=== PATIENT | female | born 1990 | race Caucasian/White ===

== ENCOUNTER 2025-02-12 16:56 | Outpatient (OUT) | payer MEDICAID, SELFPAY ==
[2025-02-17 16:09] LABS: Vitamin B6, Plasma 12.4 ug/L (3.4-65.2)
== END 2025-02-12 16:57 | disposition home or self-care (01) ==
PROVIDERS: PCP Nurse Practitioner Family; Visit Provider Obstetrics & Gynecology
DX: Z34.92 Encounter for supervision of normal pregnancy, unspecified, second trimester (principal); Z3A.15 15 weeks gestation of pregnancy
CPT/HCPCS: 36415; 82105; 84207

== ENCOUNTER 2025-02-13 10:47 | Outpatient (OUT) | payer MEDICAID, SELFPAY | END 2025-02-13 10:48 | disposition home or self-care (01) | LOC: LAB 10:47 | PROVIDERS: PCP Nurse Practitioner Family; Visit Provider Obstetrics & Gynecology | DX: Z14.8 Genetic carrier of other disease (principal) | CPT/HCPCS: 36415; 84378 ==

== ENCOUNTER 2025-03-04 12:42 | Outpatient (OUT) | payer MEDICAID, SELFPAY ==
--- OUTSIDE RECORDS SUMMARY | 2025-02-19 13:45 | XMS_ITS | Encounter Summary ---
Author Organization [email or web address] [facility] tem Address [id number] [address] [place] [address] Care Team Providers Care Maternity Nurse Name Role Phone RizviAnjelica kingnan RIOS-JEYSON Primary Care Provider Reason for Visit * ReasonCommentsGenetic Evaluation * Consultation (Routine) - Pending ReviewSpecialtyDiagnoses / ProceduresReferred By ContactReferred To ContactMaternal and Medicine Diagnoses Abnormal genetic test during Rene Hayden, DO [address] [place] [address] [place] [address] Phone: tel: fax: [facility] at [place] [address] [place] [address] Phone: tel: fax: Referral IDStatusReasonStart DateExpiration DateVisits RequestedVisits [id number] Review Specialty Services Required / Encounter Details DateTypeDepartmentCare Team (Latest Contact Info)Lxhezwpyigh84/15/2025 1:45 PM EDTSupport Visit [facility] [place] [address] [place] [address] Social History Tobacco UseTypesPacks/DayYears UsedDateSmoking Tobacco: FormerCigarettes0.57.9 Started: 04/05/2017Smokeless Tobacco: NeverAlcohol UseStandard Drinks/Week CommentsNot Currently3 (1 standard drink = 0.6 oz pure alcohol)occasionalAHC UtilitiesAnswerDate RecordedIn the past 12 months has the electric, gas, oil, or water company threatened to shut off services in your home?No03/28/2024Overall Financial Resource Strain (CARDIA)AnswerDate RecordedHow hard is it for you to pay for the very basics like food, housing, medical care, and heating?Not hard at all05/07/2024HQ-2AnswerDate RecordedTotal Jiyku192PRAPARE - TransportationAnswerDate RecordedIn the past 12 months, has lack of transportation kept you from medical appointments or from getting medications?No 03/28/2024In the past 12 months, has lack of transportation kept you from meetings, work, or from getting things needed for daily living?No03/28/2024 [place] Depression ScaleAnswerDate RecordedEdinburgh Depression Scale Eukdr181The thought of harming myself has occurred to me.Never05/07/2024Housing InstabilityAnswerDate RecordedAre you worried or concerned that in the next two months you may not have stable housing that you own, rent or stay in as a part of a household?No03/28/2024hildcareAnswerDate RecordedDo problems getting early childhood education worker make it difficult for you to work or study?No05/07/2024EmploymentAnswerDate NqhmxagcCymdkebblyZirpqha36/10/2019Hunger ScreeningAnswerDate RecordedWithin the past 12 months we worried whether our food would run out before we got money to buy more.Never True10/29/2024Within the past 12 months the food we bought just didn't last and we didn't have money to get more.Never True10/29/2024Purpose - LifeAnswerDate RecordedPurpose and direction in qnfnVofxkgd32/10/2021Estimated Date of DeliveryCommentsYes 6Based on UltrasoundSex and Gender InformationValueDate RecordedSex Assigned at AbaolUnhvvt31/02/2022 7:15 PM EDTLegal VuiTgyizs03/04/2015 2:44 PM EDTGender HslojeohToupup78/02/2022 7:15 PM EDTSexual OrientationStraight 12/07/2021 7:15 PM EDTdocumented as of this encounter Plan of Treatment DateTypeDepartmentCare Team (Latest Contact Info)Prwcnylxwva51/04/2025 9:00 AM ESTAppointment [facility] [address] [place] [address] 03/11/2025 11:00 AM ESTOffice Visit [facility]aternal[facility] at [facility] [address] [place] [address] Tejinder Mccarthy MD [address] [facility] [address] [place] [address] 11/04/2025 4:00 PM EDTOffice Visit [facility] [address] [place] [address] Rebecca Rizvi APRN-JEYSON [address] [place] [phone] documented as of this encounter Visit Diagnoses Not on filedocumented in this encounter Additional Health Concerns AssessmentNoted TimePHQ-9 Depression Total Score: 3:04 PM EDTA Body Mass Index follow-up plan has been documented for the cnhevke0509/11/2018 4:32 PM EDTdocumented as of this encounter Care Teams Team MemberRelationshipSpecialtyStart DateEnd Date Rebecca Rizvi APRN-NIGHT TIME BABYSITTER [address] [place] [address] PCP - GeneralNurse Practitioner08/23/22documented as of this encounter
--- OUTSIDE RECORDS SUMMARY | 2025-03-04 12:47 | XMS_ITS | Encounter Summary ---
Author Organization [facility] Address [address] [place] [address] Care Team Providers Care Chef Passenger Vessel Name Role Phone Rebecca Rizvi MD Primary Care Provider [phone] Reason for Visit * ReasonCommentsMed Change Request Encounter Details DateTypeDepartmentCare Team (Latest Contact Info)Wgbsfedtxtu30/16/2025Refill [facility] Camelia PERALTA [address] [place] [address] Janett Zheng PA [address] [place], [place] [address] Nonintractable headache, unspecified chronicity pattern, unspecified headache type Social History Tobacco UseTypesPacks/DayYears UsedDateSmoking Tobacco: Never Assessed Estimated Date of YvlwidevWvvqosryJgt73/11/2026Based on UltrasoundSex and Gender InformationValueDate RecordedSex Assigned at BirthNot on fileLegal SexFemale 07/20/2022 6:43 PM EDTGender IdentityNot on fileSexual OrientationNot on file documented as of this encounter Plan of Treatment DateTypeDepartmentCare Team (Latest Contact Info)Jhdjlxlxxxf73/06/2025 9:50 AM ESTRoutine NOMTiffany PERALTA [address] [place] [address] Rene Hayden DO [address] [place], [place] [address] documented as of this encounter Visit Diagnoses Diagnosis Nonintractable headache, unspecified chronicity pattern, unspecified headache type documented in this encounter Care Teams Team MemberRelationshipSpecialtyStart DateEnd Date Rebecca Rizvi MD [address] [place] [phone] PCP - GeneralFamily Medicine01/03/25documented as of this encounter
--- OUTSIDE RECORDS SUMMARY | 2025-03-04 12:47 | XMS_ITS | Clinical Summary ---
Author Organization [facility] Address [address] [place] [address], [address] [place] [address] Care Team Providers Care Glue Maker Bone Name Role Phone Neto Karen HILARION - CHICKEN STUFFER Primary Care Provider Unavailable Allergies No known active allergies Medications MedicationSigDispense QuantityRefillsLast FilledStart DateEnd DateStatus tiZANidine (ZANAFLEX) 4 MG tablet 08/28/2019Active NUVARING 0.12-0.015 MG/24HR vaginal ring 08/16/2019Active Active Problems Patient Care Coordination No te Formatting of this note migh t be different from the original. Dr Fredy WELCH ProblemNoted DateDiagnosed DateHepatitis 04/25/2017 Social History Tobacco UseTypesPacks/DayYears UsedDateSmoking Tobacco: FormerSmokeless Tobacco: NeverAlcohol UseStandard Drinks/WeekCommentsNo0 (1 standard drink = 0.6 oz pure alcohol)CommentsUnknownSex and Gender InformationValueDate RecordedSex Assigned at BirthNot on fileLegal BfhQeqzae99/28/2017 11:11 AM ESTGender IdentityNot on fileSexual OrientationNot on file Last Filed Vital Signs Vital SignReadingTime TakenCommentsBlood Syixkjco838/7601/ 3:41 PM EST Glqzs5191/ 3:41 PM SKAAaqynjlwprl86.4 ??C (97.6 ??F)02/19/2020 1:24 PM EDTRespiratory Rate--Oxygen Ewcxoopngs538%06/30/2017 10:28 AM ESTInhaled Oxygen Concentration--Mdvwgm64.7 kg (136 lb)06/03/2020 3:41 PM FGZVpsqvn377 cm (5' 3 ) 06/30/2017 10:28 AM ESTBody Mass Index24.0906/30/2017 10:28 AM EST Plan of Treatment Not on file Insurance Care Teams Team MemberRelationshipSpecialtyStart DateEnd Date Karen Duque APRN - CHICKEN STUFFER PCP - GeneralNurse Ecridyadpjis72/19/17
--- OUTSIDE RECORDS SUMMARY | 2025-03-04 12:47 | XMS_ITS | Encounter Summary ---
Author Organization [facility] Address [address] [facility] [place] [address] Care Team Providers Care After School Program Assistant Name Role Phone Rebecca Rizvi MD Primary Care Provider [phone] Encounter Details DateTypeDepartmentCare Team (Latest Contact Info)Umwtybycbyi06/15/2025bstract BOBBY PERALTA [address] [facility] [place] [address] Rene Hayden DO [address], [place] [address] Social History Tobacco UseTypesPacks/DayYears UsedDateSmoking Tobacco: Never Assessed Estimated Date of CwdhayenDngwxtfuGlu60/11/2026Based on UltrasoundSex and Gender InformationValueDate RecordedSex Assigned at BirthNot on fileLegal SexFemale 07/20/2022 6:43 PM EDTGender IdentityNot on fileSexual OrientationNot on file documented as of this encounter Plan of Treatment DateTypeDepartmentCare Team (Latest Contact Info)Demmhaurlxf59/06/2025 9:50 AM ESTRoutine NOMTiffany PERALTA [address] [facility] [place] [address] Rene Hayden DO [address], [facility] documented as of this encounter Visit Diagnoses Not on filedocumented in this encounter Care Teams Team MemberRelationshipSpecialtyStart DateEnd Date Rebecca Rizvi MD [address] [place] [phone] PCP - GeneralFamily Medicine01/03/25documented as of this encounter
--- OUTSIDE RECORDS SUMMARY | 2025-03-04 12:47 | XMS_ITS | Clinical Summary ---
Author Organization [employer] tem Address [id number] [address] [place] [address] Care Team Providers Care Field Adjuster Name Role Phone Rebecca Rizvi LBANCA-NITRIC ACID PLANT OPERATOR Primary Care Provider Allergies No known active allergies Medications * This document contains information received from the source organization and may not represent a complete record from that organization. MedicationSigDispense QuantityRefillsLast FilledStart DateEnd DateStatus omeprazole (PriLOSEC) 40 mg capsule Indications:Heart burnTake 1 capsule (40 mg total) by mouth in the morning. 30 capsule 6001/02/2024ctive Additional Information Patient not taking.Reported on 10/29/2024 008-wumb-jjmcpv 6-dha 27 mg iron-1 mg -205 mg capsule Indications: care in third trimesterTake 1 each by mouth in the morning. 90 capsule ctive Additional Information Patient not taking.Reported on 10/29/2024 drospirenone, contraceptive, 4 mg (28) tablet Take 4 mg by mouth in the morning. 28 tablet 1214Active Additional Information Patient not taking.Reported on 10/29/2024 docusate sodium (COLACE) 100 mg capsule Indications:Constipation, unspecified constipation typeTAKE 1 CAPSULE BY MOUTH DAILY NEEDED FOR CONSTIPATION 30 capsule 4Active Additional Information Patient not taking.Reported on 10/29/2024 omega-3 acid ethyl esters (LOVAZA) 1 gram capsule TAKE 2 CAPSULES BY MOUTH EVERY MORNING AND TAKE TWO CAPSULES BY MOUTH AT BEDTIME 120 capsule 5Active valACYclovir (VALTREX) 1000 mg tablet Indications:HSV infectionTake 1 tablet (1,000 mg total) by mouth in the morning and 1 tablet (1,000 mg total) before bedtime. 30 tablet 4055Active etonogestreL-ethinyl estradioL (NUVARING) 0.12-0.015 mg/24 hr vaginal ring Indications:Encounter for initial prescription of vaginal ring hormonal contraceptiveInsert 1 each into the vagina every 21 days. Insert vaginally and leave in place for 3 consecutive weeks, then remove for 1 week. 1 each 11055Active Bacillus coagulans (BACID WITH LACTOSPORE) 1 billion cell capsule Take 1 capsule by mouth in the morning. 90 capsule 5Active ibuprofen (MOTRIN) 800 mg tablet Take 1 tablet (800 mg total) by mouth every 6 (six) hours as needed for pain. 30 tablet 5Active magnesium oxide (MAGOX) 400 mg tablet Take 1 tablet (400 mg total) by mouth before bedtime. 90 tablet 5Active HDBK-veqeghih-dqonptvfldc xt 100-100-225 mg capsule Take 1 capsule by mouth in the morning. 90 capsule 5Active cholecalciferol, vitamin D3, (VITAMIN D3) 2,000 units tablet Indications:Vitamin D deficiencyTake 1 tablet (2,000 Units total) by mouth in the morning. 90 each 3065Active cyanocobalamin (vitamin B-12) 1000 MCG tablet Take 1 tablet (1,000 mcg total) by mouth in the morning. 90 tablet 5Active biotin (BIOTIN) 5 mg capsule Indications:Hair lossTake 1 capsule (5 mg total) by mouth in the morning. 90 capsule 5Active famotidine (PEPCID) 20 mg tablet Indications:Heart burnTAKE 1 TABLET BY MOUTH EVERY MORNING 30 tablet 605Active Active Problems ProblemNoted DateDiagnosed DateAnemia affecting in third trimester 01/05/2024 Overview (01/23/2024): 01/15: IV iron 01/22: IV iron Vitamin D qopmdigzgb33/03/2023Estimated Date of DeliveryCommentsYes 6Based on Ultrasound Resolved Problems ProblemNoted DateDiagnosed DateResolved DateNSVD (normal spontaneous vaginal delivery)/4225Ryrdcaiak42Normal labor03/26/2024 weeks gestation of fjsffvozj83bdominal pressure Irregular uterine aorrzultlqyr09History of heroin abuse Overview (03/17/2024): 03/17/2024: Patient states she has been clean since 2011. Xatgyswp73 Overview (11/14/2023): Bleeding after intercourse - 10-31-23 spec exam done. Bleeding is coming from metaplasia of cervix. Thick/closed 084076 = GC and CT negative Hx of LEEP - 2015 - full term baby after Cervical lengths 10-12-23 = 3.47 11-02-23 = 3.59 RECOMMENDATION: 1. Follow-up in 4 weeks for completion of targeted anatomy. 2. Serial growth ultrasounds every 4 weeks after 24 weeks gestation at her OB office. 3. Term spontaneous delivery at her local hospital is anticipated with C section reserve for routine obstetrical indications. 4. Since hepatitis C has been treated there is no restrictions regarding management. 5. Genetic consult placed today. 6. Patient will like to have the tested after . 7. Continue Valtrex. 8. Normal transvaginal cervical length. Patient does not meet the criteria for cervical length protocol MFM consult: Rh negative state in antepartum envqta72HSV infection Overview (10/31/2023): 09-05-23 genital lesion cultured- + HSV2 States gets oral lesions Discussed genital HSV and need for prophylaxis at 34 weeks. 10-31-23 - c/o HSV oral break out. 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 They have a ocju-fxqp-yed daughter that has a mild form (Clemens variant) of galactosemia diagnosed via screening with minimal need for treatment and management. Ese has a healthy 17-year-old daughter with a different partner. Rancho has two healthy children with a different partner. Galactosemia is a hereditary condition caused by mutations in the GALT gene resulting in trouble metabolizing a sugar called galactose. Symptoms in infancy if untreated include feeding difficulties, failure to thrive, liver damage, seizures, bleeding, and E. coli sepsis. If treated, children are still at risk for developmental delays, speech problems, and abnormal motor function. Based on the known parental carrier statuses, the risk for the current to be affected with galactosemia is 25%. We reviewed all children born in [place] are screened for galactosemia via screening (NBS) after . 1. Amniocentesis discussed and declined. 2. Continue to monitor the via ultrasound. 3. Patient diagnoses: galactosemia carriers, family history of galactosemia and muscular dystrophy History of loop electrical excision procedure (LEEP) Overview (09/05/2023): LEEP 2016 Cervical lengths to start at 16 weeks until 24 weeks. Intermittent explosive vzmggmdr17ipolar yskpqwez30/23/2023 10/01/20244557Pkwjazyz06History of drug abuse09/06/2022EczemaVitamin B 12 /02/2023 02/21/2023FH: brain eabknyop75pontaneous vaginal delivery Failed induction of labor, ddctzcesex60 Intrauterine tuktgxlmy37Echogenic focus of heart of fetus affecting antepartum care of cumyfn96 Overview (10/09/2017): First Trimester and MSAFP is WNL US was repeated and the EIF Is smaller - her first trimester screen was negative PLAN: rpt US in 4 weeks Notify Peds at History of hepatitis /// Overview (09/08/2023): treated 04/2020 with Mavyret (Dr. Daniel) 09/07/22 viral load undetectable 09/05/23 viral load undetected Rh negative, antepartum, first ukuqmrrtp31Attention deficit hyperactivity disorder (ADHD), predominantly hyperactive type03/20/2017 10/01/20244745Nappzkr42Headaches, oyboyeh79HCV antibody ljpxdbze26 Overview (07/17/2017): Avoid scalp electrode Notify peds at delivery LFT and viral load each trimester and at delivery Elevated liver azhhgok38Cannabis abuse Tobacco useHistory of opioid abuse Overview (08/14/2017): Has not used opoid since Hx of intravenous drug use in isczwxvvt67CIN II (cervical intraepithelial neoplasia II) Overview (08/14/2017): =ASC-H =HGSIL = LEEP - Dr. Bhatia - PAP=WNL Rpt PAP post Encounters DateTypeDepartmentCare HjprHlfjzbekunn69/16/2025Orders Only Maternal- Medicine at [facility] [address] [place] [address] Ref Prov, Not In System 02/19/2025 1:45 PM EDTSupport Visit Maternal- Medicine at [facility] [address] [place] [address] 02/19/20256868Tibayl29/06/2025bstract Maternal- Medicine at [facility] [address] [place] [phone] Tejinder Mccarthy MD 12/31/2024RefJames E. Van [facility] Certified Nurse Barge Master - [place] [address] [facility] [address] [place] [phone] Ivory Du APRN-DANIM Heart burn12/24/2024TeleUniversity [facility] [address] [facility] [address] [place] [address] Kacie Shannon, RMA questionfrom Last 3 Months Immunizations ImmunizationAdministration DatesNext OvbAMB3506/12/1989,02/08/1990,1989DTaP, Hzbmffwcgjm50/08/2002,10/04/1994,04/16/1991HPV Aohjxpnmengm41/14/2007Hep A, 2 Dose03/21/2007Hep B, Adolescent or Ntmynkgby93/26/2002,05/15/2001,04/04/2001HiB 02/12/1991,09/20/1990,08/05/1990Influenza, Injectable, quadrivalent (PF) 02/27/2024,05/22/2017MMR05/15/2001,02/12/1991Meningococcal JNH1H5103/21/2007OPV 10/04/1994,04/16/1991,02/08/1990,1989Polio, Dbvlpynrltu12/08/2002RSV, bivalent, protein subunit RSVpreF, diluent reconstituted, 0.5 mL, PF02/23/2024 Rho (D) Immune Gpqvsdsv59/21/2024,01/02/2024,11/14/2023,08/23/2023,09/11/2017Td, Vciovkxttka41/26/4680Kelo12/06/2024 Family History Medical HistoryRelationNameCommentsDrug abuseBrotherDrug abuseFatherHeart diseaseFatherMigrainesFatherParkinsonismMaternal GrandfatherBreast cancer Maternal Grandmotherdiagnosed 2016DepressionMotherDrug abuseMotherMigraines MotherHeart diseasePaternal GrandmotherColon cancerNeg HxOvarian cancerNeg Hx Uterine cancerNeg HxRelationNameStatusCommentsBrotherFatherAliveMaternal GrandfatherDeceasedMaternal GrandmotherAliveMotherAlivePaternal Grandfather unknownDeceasedPaternal GrandmotherDeceased Social History Tobacco UseTypesPacks/DayYears UsedDateSmoking Tobacco: FormerCigarettes0.57.9 Started: 04/05/2017Smokeless Tobacco: Never Tobacco Cessation:Counseling Given: Not Answered Alcohol UseStandard Drinks/WeekCommentsNot Currently3 (1 standard drink = 0.6 oz pure alcohol)occasionalAHC UtilitiesAnswerDate RecordedIn the past 12 months has the electric, gas, oil, or water [employer] threatened to shut off services in your home?No03/28/2024Overall Financial Resource Strain (CARDIA)AnswerDate Recorded How hard is it for you to pay for the very basics like food, housing, medical care, and heating?Not hard at all05/07/2024HQ-2AnswerDate RecordedTotal Score0 10/29/2024PRAPARE - TransportationAnswerDate RecordedIn the past 12 months, has lack of transportation kept you from medical appointments or from getting medications?No03/28/2024In the past 12 months, has lack of transportation kept you from meetings, work, or from getting things needed for daily living?No 03/28/2024Edinburgh Depression ScaleAnswerDate RecordedEdinburgh Depression Scale Sxaac049The thought of harming myself has occurred to me.Never05/07/2024Housing InstabilityAnswerDate RecordedAre you worried or concerned that in the next two months you may not have stable housing that you own, rent or stay in as a part of a household?No4Childcare AnswerDate RecordedDo problems getting children's attendant make it difficult for you to work or study?No05/07/2024EmploymentAnswerDate RecordedEmploymentUnknown 10/15/2018Hunger ScreeningAnswerDate RecordedWithin the past 12 months we worried whether our food would run out before we got money to buy more.Never True10/29/2024Within the past 12 months the food we bought just didn't last and we didn't have money to get more.Never True10/29/2024Purpose - LifeAnswerDate RecordedPurpose and direction in lzhsTlhhijh70/10/2021Estimated Date of EeujsfepJwpkwrjeNtx34/11/2026Based on UltrasoundSex and Gender InformationValue Date RecordedSex Assigned at LtydaFucfhb70/02/2022 7:15 PM EDTLegal SexFemale 12/09/2014 2:44 PM EDTGender WbrjzvaaPdpzds17/02/2022 7:15 PM EDTSexual CccsjrlfagxLjdnbsts73/02/2022 7:15 PM EDT Last Filed Vital Signs Vital SignReadingTime TakenCommentsBlood Sjxzwkro141/7410/29/2024 3:04 PM EDT Kycas119110/29/2024 3:04 PM PYLOqddjjqhmkc10.6 ??C (97.8 ??F)10/29/2024 3:04 PM EDTRespiratory Uxyo584905/28/2023 3:55 PM ESTOxygen Vteqipuros04%10/29/2024 3:04 PM EDTInhaled Oxygen Concentration--Qffure73.4 kg (148 lb 9.6 oz)10/29/2024 3:04 PM BETDvrcxp359 cm (5' 2.99 )10/29/2024 3:04 PM EDTBody Mass Index26.33 10/29/2024 3:04 PM EDT Plan of Treatment DateTypeDepartmentCare Team (Latest Contact Info)Haxbpnwysyt93/04/2025 9:00 AM ESTAppointment [facility] - [facility] Imaging [address] [place] [phone] 03/11/2025 11:00 AM ESTOffice Visit Maternal- Medicine at [facility] [address] [facility] [place] [phone] Tejinder Mccarthy MD [address] [facility]ITALDoreen, [address] [place], [place] [phone] 11/04/2025 4:00 PM EDTOffice Visit [facility] [address] [place] [phone] Rebecca Rizvi, [facility]IC [facility] [address] [place] [address], [facility] [place] [phone] Health MaintenanceDue DateLast DoneCommentsAdult BMI Follow Up Plan10/04/2007 Influenza Cjgnfft88, 05/22/2017Adult BMI Ahyyjqobt47/24/2026 10/29/2024Depression Nqkmojifd54, 05/07/2024Tobacco Screening /Pap Smear8010/01/2024, 10/01/2024, 09/05/2023, Additional history existsDTaP,Tdap and Td Vaccines (9 - Td or Tdap)01/11/2034 01/12/2024, 12/31/2001, 05/15/2001, Additional history exists Medical Devices Not on file Procedures Procedure NamePriorityDate/TimeAssociated DiagnosisCommentsFETAL FREE CELL DNA (NON-[facility] SEND OUT)Xgoilss8402/18/2025 11:39 AM EDTTYPE AND SCREENRoutine 01/28/2025 HEPATITIS B SURFACE RNJKVKAHarlwcf31/23/2025 DRUG SCREEN, GSCYMAcybljp59/23/2025 CBC (NO DIFF)Hcccwlg1301/28/2025 HIV 1&2 AB/AG SCREEN (P24 AG)Purocna4601/28/2025 RUBELLA IGG IMMUNE EAWZQXFhsqtox39/23/2025 SYPHILIS TOTAL(UNKNOWN SYPHILIS STATUS)Effedgu0401/28/2025 HIGH RISK HPV W/MJGLXogolrg34/27/2025 1:50 PM EDT Screening for cervical cancer from Last 3 Months or Most Recently Relevant to Health Maintenance Results * Free Cell DNA (Non-[facility] Send Out) (02/18/2025 11:39 AM EDT) Narrative Authorizing ProviderResult TypeResult StatusNot In System Ref Farm[employer] BLOOD ORDERABLESFinal ResultPerforming OrganizationAddressCity/State/ZIP CodePhone Number MANUALLY TRANSCRIBED RESULTS * HIV 1&2 AB/AG Screen (P24 AG) (01/28/2025)ComponentValueRef RangeTest Method Analysis TimePerformed AtPathologist SignatureHIV 1&2 AB/AGNON REACTIVE MANUALLY TRANSCRIBED RESULTSSpecimen (Source)Anatomical Location / Laterality Collection Method / VolumeCollection TimeReceived TimeBloodVenous blood / Unknown Narrative Authorizing ProviderResult TypeResult StatusNot In System Ref batteriiLAB BLOOD ORDERABLESFinal ResultPerforming OrganizationAddressCity/State/ZIP CodePhone Number MANUALLY TRANSCRIBED RESULTS * Rubella IGG immune status (01/28/2025)ComponentValueRef RangeTest Method Analysis TimePerformed AtPathologist SignatureRubella immune IgGIMMUNEMANUALLY TRANSCRIBED RESULTSSpecimen (Source)Anatomical Location / LateralityCollection Method / VolumeCollection TimeReceived TimeBloodVenous blood / Unknown Narrative Authorizing ProviderResult TypeResult StatusNot In System Ref batteriiLAB BLOOD ORDERABLESFinal ResultPerforming OrganizationAddressCity/State/ZIP CodePhone Number MANUALLY TRANSCRIBED RESULTS * Syphilis Total (Unknown Syphilis Status) (01/28/2025)ComponentValueRef Range Test MethodAnalysis TimePerformed AtPathologist SignatureSyphilisNON REACTIVE MANUALLY TRANSCRIBED RESULTSSpecimen (Source)Anatomical Location / Laterality Collection Method / VolumeCollection TimeReceived TimeBloodVenous blood / Unknown Narrative Authorizing ProviderResult TypeResult StatusNot In System Ref ProvLAB BLOOD ORDERABLESFinal ResultPerforming OrganizationAddressCity/State/ZIP CodePhone Number MANUALLY TRANSCRIBED RESULTS * Drug Screen, Urine (01/28/2025)ComponentValueRef RangeTest MethodAnalysis Time Performed AtPathologist SignatureMethadoneNEGATIVEMANUALLY TRANSCRIBED RESULTS OpiatesNEGATIVEMANUALLY TRANSCRIBED RESULTSAmphetamine/MethamphetamineNEGATIVE MANUALLY TRANSCRIBED RESULTSCocaine MetaboliteNEGATIVEMANUALLY TRANSCRIBED RESULTSPhencyclidineNEGATIVEMANUALLY TRANSCRIBED RESULTSThc Marijuana, Urine NEGATIVEMANUALLY TRANSCRIBED RESULTSOxycodoneNEGATIVEMANUALLY TRANSCRIBED RESULTSBarbituratesNEGATIVEMANUALLY TRANSCRIBED RESULTSBenzodiazepinesNEGATIVE MANUALLY TRANSCRIBED RESULTSSpecimen (Source)Anatomical Location / Laterality Collection Method / VolumeCollection TimeReceived TimeUrine Narrative Authorizing ProviderResult TypeResult StatusNot In System Ref ProvURINE ORDERABLESFinal ResultPerforming OrganizationAddressCity/State/ZIP CodePhone Number MANUALLY TRANSCRIBED RESULTS * Hepatitis B surface antigen (01/28/2025)ComponentValueRef RangeTest Method Analysis TimePerformed AtPathologist SignatureHepatitis B Surface Antigen NEGATIVEMANUALLY TRANSCRIBED RESULTSSpecimen (Source)Anatomical Location / LateralityCollection Method / VolumeCollection TimeReceived TimeBloodVenous blood / Unknown Narrative Authorizing ProviderResult TypeResult StatusNot In System Ref ProvLAB BLOOD ORDERABLESFinal ResultPerforming OrganizationAddressCity/State/ZIP CodePhone Number MANUALLY TRANSCRIBED RESULTS * CBC without diff (01/28/2025)ComponentValueRef RangeTest MethodAnalysis Time Performed AtPathologist DjonkdmkpQmwmisqqae67.7MANUALLY TRANSCRIBED RESULTS Tdgrrekmzf08.6MANUALLY TRANSCRIBED RESULTSRbc Mcv (Fl) By Automated Count93 MANUALLY TRANSCRIBED CGOXRDZFlvknczvr119QPFDHFDI TRANSCRIBED RESULTSSpecimen (Source)Anatomical Location / LateralityCollection Method / VolumeCollection TimeReceived TimeBloodVenous blood / Unknown Narrative Authorizing ProviderResult TypeResult StatusNot In System Ref ProvLAB BLOOD ORDERABLESFinal ResultPerforming OrganizationAddressCity/State/ZIP CodePhone Number MANUALLY TRANSCRIBED RESULTS * Type and screen (01/28/2025)ComponentValueRef RangeTest MethodAnalysis Time Performed AtPathologist SignatureAbo/Rh(D)O NegativeMANUALLY TRANSCRIBED RESULTSAntibody ScreenNEGATIVEMANUALLY TRANSCRIBED RESULTSSpecimen (Source) Anatomical Location / LateralityCollection Method / VolumeCollection Time Received TimeBloodVenous blood / Unknown Narrative Authorizing ProviderResult TypeResult StatusNot In System Ref ProvBLOOD BANK TEST ORDERABLESFinal ResultPerforming OrganizationAddressCity/State/ZIP Code Phone Number MANUALLY TRANSCRIBED RESULTS * High risk HPV w/krzysztof (10/01/2024 1:50 PM EDT)ComponentValueRef RangeTest MethodAnalysis TimePerformed AtPathologist SignatureHPV 16NegativeNegative 10/02/2024 2:06 PM [facility]ATORYHPV 18Negative Kevskhvu00/28/2025 2:06 PM [facility]ORYOTHER HIGH RISK VGPDbwjxszbWqulhatq78/28/2025 2:06 PM [facility] LABORATORYComment:HPV types 31, 33, 35, 39, 45, 52, 56, 58, 59, 66, and 68 DNA were undetectable.Specimen (Source)Anatomical Location / LateralityCollection Method / VolumeCollection TimeReceived TimeThinPrep cytology technique (qualifier value)Cervix uteri structure / Xbbofxg2810/01/2024 1:50 PM EDT 10/02/2024 3:04 AM EDT Narrative Authorizing ProviderResult TypeResult StatusJane Jenna Figueroamibriana UROLOGIC NURSE-CNMLAB BLOOD ORDERABLESFinal ResultPerforming OrganizationAddressCity/State/ZIP CodePhone Number [facility] [address] [place] [address], from Last 3 Months or Most Recently Relevant to Health Maintenance Insurance Advance Directives * Full Code (Latest Code Status on File) Date ActivatedDate AwdcpqyhrwbGlxvzmzy55/19/2024 10:52 PM03/28/2024 11:13 PM * Full Code Date ActivatedDate InactivatedComments12/08/2017 8:05 AM12/10/2017 9:50 AM * Full Code Date ActivatedDate InactivatedComments12/01/2017 8:08 AM12/02/2017 12:35 PM Care Teams Team MemberRelationshipSpecialtyStart DateEnd Date Rebecca Rizvi APRN-JEYSON [address] [place] [phone] PCP - GeneralNurse Practitioner08/23/22
--- OUTSIDE RECORDS SUMMARY | 2025-03-04 12:47 | XMS_ITS | Encounter Summary ---
Author Organization [facility] Address [address] [facility] [place] [address] Care Team Providers Care Review Coordinator Name Role Phone Rebecca Rizvi MD Primary Care Provider [phone] Encounter Details DateTypeDepartmentCare Team (Latest Contact Info)Bizwdogzctp20/15/2025bstract BOBBY PERALTA [address] [place] [address] Rene Hayden DO [address], [place] [address] Social History Tobacco UseTypesPacks/DayYears UsedDateSmoking Tobacco: Never Assessed Estimated Date of TasmvilmPcuqbwicJta99/11/2026Based on UltrasoundSex and Gender InformationValueDate RecordedSex Assigned at BirthNot on fileLegal SexFemale 07/20/2022 6:43 PM EDTGender IdentityNot on fileSexual OrientationNot on file documented as of this encounter Plan of Treatment DateTypeDepartmentCare Team (Latest Contact Info)Qopsyxnygqt22/06/2025 9:50 AM ESTRoutine NOMTiffany PERALTA [address] [place] [address] Rene Hayden DO [address], [facility] documented as of this encounter Visit Diagnoses Not on filedocumented in this encounter Care Teams Team MemberRelationshipSpecialtyStart DateEnd Date Rebecca Rizvi MD [address] [place] [phone] PCP - GeneralFamily Medicine01/03/25documented as of this encounter
--- OUTSIDE RECORDS SUMMARY | 2025-03-04 12:47 | XMS_ITS | Clinical Summary ---
Author Organization [facility] Healthcare Address [address] [place] [address] Care Team Providers Care Route Sales Specialist Name Role Phone Rebecca Rizvi MD Primary Care Provider [phone] Allergies No known active allergies Medications MedicationSigDispense QuantityRefillsLast FilledStart DateEnd DateStatus biotin 5 MG capsule Take 5 mg by mouth in the morning.5Active Docusate Sodium (DSS) 100 MG capsule Indications:Constipation during in second trimester ([facility])Take 1 capsule (100 mg) by mouth in the morning and 1 capsule (100 mg) before bedtime. 60 capsule 5Active Vit-Fe Fumarate-FA ( Vitamins) 28-0.8 MG tablet Indications:Positive urine test ([facility]),, unspecified gestational age ([facility]),Encounter for supervision of normal first in first trimester ([facility])Take 1 tablet by mouth Daily 30 tablet 5Active famotidine (Pepcid) 20 MG tablet Indications:Heartburn during in second trimester ([facility])Take 1 tablet (20 mg) by mouth in the morning. 30 tablet 5Active acetaminophen (Tylenol) 160 MG/5ML liquid Indications:Nonintractable headache, unspecified chronicity pattern, unspecified headache typeTAKE 20.3 ML BY MOUTH EVERY 6 HOURS NEEDED FOR HEADACHES FOR UP TO 10 DAYS 120 mL 5Active acetaminophen (Tylenol) 160 MG/5ML liquid Indications:Nonintractable headache, unspecified chronicity pattern, unspecified headache typeTake 20.3 mL (650 mg) by mouth every 6 (six) hours if needed for headaches for up to 10 days 120 mL 10/16/780509Discontinued Encounters DateTypeDepartmentCare IbogHhakxsslylr15/16/2025Refill [facility] [address] [place] [address] Janett Zheng PA Nonintractable headache, unspecified chronicity pattern, unspecified headache type02/20/2025Telephone [facility] [address] [place] [address] Rene Hayden, DO 02/19/2025bstract [facility] [address] [place] [address] Rene Hayden, DO 02/19/2025bstract [facility] [address] [place] [address] Rene Hayden, DO 02/12/2025 3:20 PM EDTRoutine [facility] [address] [place] [address] Jaylin Chung, NATHANIEL Second trimester ([facility]); 18 weeks gestation of ([facility])02/12/2025linisync Result Encounter [facility] External Department Unsolicited Rene Hayden, DO 02/12/2025amboo flowsheet [facility] [address] [place] [address] Jaylin Chung NP 02/10/2025Telephone [facility] [address] [place] [address] Sosa Funes MA 01/22/2025 2:30 PM EDTRoutine [facility] [address] [place] [address] Rene Hayden, DO 15 weeks gestation of ([facility]); Second trimester ([facility]); Constipation during in second trimester ([facility]); 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 qchnuuwhkobx88/17/2025amboo flowsheet [facility] [address] [place] [address] [place] [address] Rene Hayden DO 01/03/2025 10:00 AM EDTInitial [facility] [address] [place] [address] [place] [address] GA: 72v9c9401/03/2025 9:30 AM EDTAncillary Procedure [facility] [address] [place] [address] Missed menses; Positive urine test ([facility])01/03/2025bstract [facility] [address] [place] [address] Rene Hayden DO from Last 3 Months Social History Tobacco UseTypesPacks/DayYears UsedDateSmoking Tobacco: Never Assessed Estimated Date of XrxcqftjVnfluxuuEbc14/11/2026Based on UltrasoundSex and Gender InformationValueDate RecordedSex Assigned at BirthNot on fileLegal SexFemale 07/20/2022 6:43 PM EDTGender IdentityNot on fileSexual OrientationNot on file Last Filed Vital Signs Vital SignReadingTime TakenCommentsBlood Stiwugtp434/6002/12/2025 3:46 PM EDT Pulse--Temperature--Respiratory Rate--Oxygen Saturation--Inhaled Oxygen Concentration--Kghpei12.2 kg (172 lb 6.4 oz)02/12/2025 3:46 PM EDTHeight--Body Mass Index-- Plan of Treatment DateTypeDepartmentCare Team (Latest Contact Info)Ejjmmretvry70/06/2025 9:50 AM ESTRoutine [facility] [address] [place] [address] Rene Hayden DO [address] [place], [place] [id number] (work) Procedures Procedure NamePriorityDate/TimeAssociated DiagnosisCommentsAFP, SERUM, OPEN SPINA ECWUKILijnkzl74/08/2025 5:26 PM EDT BOX TGPSFnbqztb11/08/2025 5:26 PM EDT POCT URINALYSIS THJRRYIZOjimxpy29/17/2025 3:00 PM EDT 15 weeks gestation of ([facility]) Second trimester ([facility]) POCT URINALYSIS HVUZPNLTQxrixnb59/29/2025 11:24 AM EDT Missed menses POCT , USJXBDnvvrdq18/29/2025 11:23 AM EDT Missed menses US OB FJUGGKHZTMMBWauiwxa74/29/2025 10:04 AM EDT Missed menses Positive urine test ([facility]) from Last 3 Months Results * BOX TEST (02/12/2025 5:26 PM EDT)ComponentValueRef RangeTest MethodAnalysis TimePerformed AtPathologist SignatureBOX TEST SENT DQDGRLPYBNCCNE9FTNTLRGFXEZ6 02/12/2025TBHSpecimen (Source)Anatomical Location / LateralityCollection Method / VolumeCollection TimeReceived Time02/12/2025 5:26 PM EDT1 5:46 PM EDT Narrative CLINISYNC - 02/12/2025 5:59 PM EDT Authorizing ProviderResult TypeResult StatusCorey Jackelyn DOLAB BLOOD ORDERABLES Final ResultPerforming OrganizationAddressCity/State/ZIP CodePhone Number [facility]ITALYASMEENSAM[facility] * AFP, SERUM, OPEN SPINA BIFIDA (02/12/2025 5:26 PM EDT)ComponentValueRef Range Test MethodAnalysis TimePerformed AtPathologist SignatureRESULTSReport.TBHTEST RESULTS:*Screen Negative*.TBHGEST. AGE ON COLLECTION DATE18.0. weeksTBHGESTAT. AGE BASED ONUltrasound.TBHComment: ?18.0 on 02/12/2025 Recalculations are not recommended when gestational dating by LMP and ultrasound are within 10 days. MATERNAL AGE AT EDD35.7. yrTBHRACECaucasian.BNSJPUNDT468. lbsTBHINSULIN DEP DIABETESNo.TBHMULTIPLE GESTATIONTwins.TBHAFP LHDNC628.6. ng/mLTBHAFP MOM3.18.TBH OSBR RISK 1 IN304.TBHINTERPRETATIONComment.TBHComment: Interpretation: Screen Negative This result is screen negative for OSB. The AFP MoM is calc-ulated based on the gestational age provided. Screening efficiency is diminished in twin pregnancies. MS- AFP detects approximately 48% of open neural tube defects. Closed neural tube defects and some open defects may not be detected by this test. This test does not screen for Down Syndrome or Trisomy 18. If screening for Down syndrome or Trisomy 18 is desired, contact [employer] to discuss available options. ??The [place] [employer] recommends amniocentesis be offered to women age 35 and older. COMMENT:Comment.TBHComment: Kenia Schreiber, Ph.D., [facility] Director References: Available Upon Request. Multiples Of Median Cutoffs ?For AFP Elevations Palmer ?? 2.5 ? Black ?2.8 IDD ? 2.0 ? Twins ?4.5 ?Abbreviation Definitions IDD - Insulin Dep Diabetes OSBR - Open Spina Bifida Risk For further inquiries contact [employer] at [phone]. This test was developed and its performance characteristics determined by [employer]. It has not been cleared or approved by the Food and Drug Administration. Performed at: ??[facility] [address], [place] ??[id number] Taker Out: [facility], Phone: ??[phone] Specimen (Source)Anatomical Location / LateralityCollection Method / Volume Collection TimeReceived Time02/12/2025 5:26 PM EDT1 5:46 PM EDT Narrative CLINISYNC - 02/15/2025 1:06 AM EDT N N ULTRASOUND [id number] 0 18 N 2 172 N N N N N White/ Authorizing ProviderResult TypeResult StatusCorey Jackelyn DOLAB BLOOD ORDERABLES Final ResultPerforming OrganizationAddressCity/State/ZIP CodePhone Number [facility] * (ABNORMAL) POCT urinalysis dipstick manually resulted (01/22/2025 3:00 PM EDT) Only the most recent of2 resultswithin the time period is included. ComponentValueRef RangeTest MethodAnalysis TimePerformed AtPathologist Signature Color, UAYellowClarity, UAClearGlucose, UANegativeNegative - 2000(110) ++++ mg/dLBilirubin, UANegativeNegative - 4(70) +++ mg/dLKetones, UAPositiveNegative - 160(16) ++++ mg/dLSpec Grav, UA1.0201 - 1.03Blood, UANegativeNegative - 50 Masood/mcLpH, UA6.05 - 9Protein, UAPositiveNegative - 2000(20) ++++ mg/dL Urobilinogen, UA1.00.2 - 12 mg/dLLeukocytes, UAPositiveNegative - 500+++ Albin/mcL Nitrite, UANegativeNegative - PositiveSpecimen (Source)Anatomical Location / LateralityCollection Method / VolumeCollection TimeReceived WtehGihzy72/17/2025 3:00 PM EDT Narrative Authorizing ProviderResult TypeResult StatusCorey Jackelyn DOPOINT OF CARE TEST ENTER/EDIT ORDERABLESFinal Result * (ABNORMAL) POCT , urine manually resulted (01/03/2025 11:23 AM EDT) ComponentValueRef RangeTest MethodAnalysis TimePerformed AtPathologist SignaturePreg Test, UrPositiveNegativeSpecimen (Source)Anatomical Location / LateralityCollection Method / VolumeCollection TimeReceived TimeUrine 01/03/2025 11:23 AM EDT Narrative Authorizing ProviderResult TypeResult StatusCorey Jackelyn DOPOINT OF CARE TEST ENTER/EDIT ORDERABLESFinal Result * US OB transvaginal (01/03/2025 10:04 AM EDT)Anatomical RegionLaterality ModalityBodyUltrasoundSpecimen (Source)Anatomical Location / Laterality Collection Method / VolumeCollection TimeReceived Time01/05/2025 12:55 PM EDT Impressions 01/07/2025 7:53 AM EDT Viable twin gestations (diamniotic, dichorionic) approximate age of 12 weeks and 0 day, resulting in an estimated date of delivery July 17, 2025. TRANSCRIBED BY: ? ELECTRONICALLY SIGNED BY: Howard Gusman MD Narrative 01/07/2025 7:53 AM EDT FINDINGS: Two gestation (diamniotic, dichorionic). ??Placenta is anterior, not associated with the cervical os. ??Cervical length is 5.3 cm. TWIN A: crown rump length is 5.1 cm, 11 weeks, 6 days, ??Heart rate is 149 bpm. TWIN B: ??[place] rump length 5.7 cm 12 weeks, 2 days. ??Heart rate 156 bpm ? Procedure Note Howard Gusman MD - 01/07/2025 FINDINGS: Two gestation (diamniotic, dichorionic). Placenta is anterior, notassociated with the cervical os. Cervical length is 5.3 cm. TWIN A: crown rump length is 5.1 cm, 11 weeks, 6 days, Heart rate is 149bpm. TWIN B: [place] rump length 5.7 cm 12 weeks, 2 days. Heart rate 156 bpm IMPRESSION: Viable twin gestations (diamniotic, dichorionic) approximate age of 12weeks and 0 day, resulting in an estimated date of delivery July. TRANSCRIBED BY: ELECTRONICALLY SIGNED BY: Howard Gusman MD Authorizing ProviderResult TypeResult StatusCorey Jackelyn [facility] OB US PROCEDURES Final Result from Last 3 Months Insurance Care Teams Team MemberRelationshipSpecialtyStart DateEnd Date Rebecca Rizvi MD [address] [place] [phone] PCP - GeneralFamily Medicine01/03/25
--- OUTSIDE RECORDS SUMMARY | 2025-03-04 12:47 | XMS_ITS | Encounter Summary ---
Author Organization [facility] Address [address] [place] [address] Care Team Providers Care Exchange Underwriting Consultant Name Role Phone Rebecca Rizvi MD Primary Care Provider [phone] Encounter Details DateTypeDepartmentCare Team (Latest Contact Info)Pwahedyyqpp21/16/2025Telephone [facility] [address] [facility] [place] [place] [address] Rene Hayden DO [address] [place] [address] Social History Tobacco UseTypesPacks/DayYears UsedDateSmoking Tobacco: Never Assessed Estimated Date of ApthgxfgBhfmneibOjt07/11/2026Based on UltrasoundSex and Gender InformationValueDate RecordedSex Assigned at BirthNot on fileLegal SexFemale 07/20/2022 6:43 PM EDTGender IdentityNot on fileSexual OrientationNot on file documented as of this encounter Miscellaneous Notes * Telephone Encounter - Yaneli Avina LPN - 02/20/2025 2:23 PM EDT Asked provider if ok to send in liquid tylenol given the ok and script sent. * Telephone Encounter - Yaneli Avina LPN - 02/20/2025 10:54 AM EDT Patient called the office and she left a voicemail asking for a return call. Patient call was returned and she was asking if she can take tylenol and zofran. Patient was gone over the list and she was advised this is also in her folder we provided to her. Patient was asking if liquid tylenol can besent for her and she was advised would make sure ok with provider asked if she Magnesium she says she does have the Magnesium oxide at home and she was advised this is what we would sent in. Advised will check with liquid tylenol and if she does not hear back a script was sent. PVU documented in this encounter Plan of Treatment DateTypeDepartmentCare Team (Latest Contact Info)Wfbwnwnixrd57/06/2025 9:50 AM ESTRoutine [facility] [address] [place] [address] Rene Hayden DO [address] [place] [address] documented as of this encounter Visit Diagnoses Diagnosis Nonintractable headache, unspecified chronicity pattern, unspecified headache type documented in this encounter Care Teams Team MemberRelationshipSpecialtyStart DateEnd Date Rebecca Rizvi MD [address] [place] [phone] PCP - GeneralFamily Medicine01/03/25documented as of this encounter
--- OUTSIDE RECORDS SUMMARY | 2025-03-04 12:47 | XMS_ITS | Patient Health Record ---
[facility] Address [address] [place] [address] Care Team Providers Care Car Pre Cooler Name Role Phone Dr. Howard Arriaga Primary Care Provider [phone] Erin Guallpa [phone] Reason For Referral No Information Encounters Encounter Location Date Provider Diagnosis [facility] [address] [place] [address] 08/22/2024 Erin Wheeler Acute gingivitis, plaque induced K05.00 Assessments Encounter Date Diagnosis (ICD Code) Assessment Notes Treatment Notes Treatment Clinical Notes Section Notes 08/22/2024 Acute gingivitis, plaque induced (ICD-10 - K05.00) Plan Of Treatment Next Appt Details Provider Name:Erin Wheeler , 03/14/2025 09:30:00 AM, [address], [place], [address], Insurance Providers Payer Name Payer Address Payer Phone Subscriber Number Group Number Insured Name Patient Relationship to Insured Coverage Start Date Coverage End Date [employer] DQ Terminat ed [address] [place] [address] [id number] BRENDA LOGAN Self - patient is the insured 3 [employer] BCBS Termed [address] [place] [address] [phone], CHRISTINASelf - patient is the insured [facility] [address] [address] [place] [phone], CHRISTINASelf - patient is the [id number] 2024 [employer] MedicaidPO [address] [address] [place] [phone] [id number] LOGANf - patient is the [id number] [address] [place] [facility] [address] [place] [id number], CHRISTINA Self - patient is the [id number] 2024
--- OUTSIDE RECORDS SUMMARY | 2025-03-04 12:48 | XMS_ITS | Encounter Summary ---
Author Organization [facility] Address [id number] [address] [place] [address] Care Team Providers Care Hair Spring Winder Name Role Phone Rebecca Rizvi BLANCA-INTERMEDIATE MANAGER Primary Care Provider Encounter Details DateTypeDepartmentCare Team (Latest Contact Info)Betsvsmhzgz62/15/2025Travel Social History Tobacco UseTypesPacks/DayYears UsedDateSmoking Tobacco: FormerCigarettes0.57.9 Started: 04/05/2017Smokeless Tobacco: NeverAlcohol UseStandard Drinks/Week CommentsNot Currently3 (1 standard drink = 0.6 oz pure alcohol)occasionalAHC UtilitiesAnswerDate RecordedIn the past 12 months has the electric, gas, oil, or water [place] threatened to shut off services in your home?No03/28/2024Overall Financial Resource Strain (CARDIA)AnswerDate RecordedHow hard is it for you to pay for the very basics like food, housing, medical care, and heating?Not hard at all05/07/2024HQ-2AnswerDate RecordedTotal Cfxbl287PRAPARE - TransportationAnswerDate RecordedIn the past 12 months, has lack of transportation kept you from medical appointments or from getting medications?No 03/28/2024In the past 12 months, has lack of transportation kept you from meetings, work, or from getting things needed for daily living?No03/28/2024 [place] Depression ScaleAnswerDate RecordedEdinburgh Depression Scale Pvtqp401The thought of harming myself has occurred to me.Never05/07/2024Housing InstabilityAnswerDate RecordedAre you worried or concerned that in the next two months you may not have stable housing that you own, rent or stay in as a part of a household?No4ChildcareAnswerDate RecordedDo problems getting child care centre director make it difficult for you to work or study?No05/07/2024EmploymentAnswerDate PwbzxxqdJqqxggxctoNbhdfga20/10/2019Hunger ScreeningAnswerDate RecordedWithin the past 12 months we worried whether our food would run out before we got money to buy more.Never True10/29/2024Within the past 12 months the food we bought just didn't last and we didn't have money to get more.Never True10/29/2024Purpose - LifeAnswerDate RecordedPurpose and direction in jsbwXjviudh50/10/2021Estimated Date of DeliveryCommentsYes 6Based on UltrasoundSex and Gender InformationValueDate RecordedSex Assigned at NugjvLrfpsc05/02/2022 7:15 PM EDTLegal ZhhDgadbd03/04/2015 2:44 PM EDTGender GealbhzdOhlkbw07/02/2022 7:15 PM EDTSexual OrientationStraight 12/07/2021 7:15 PM EDTdocumented as of this encounter Plan of Treatment DateTypeDepartmentCare Team (Latest Contact Info)Kekmapdmegn83/04/2025 9:00 AM ESTAppointment [facility] Imaging [address] [place] [address] 03/11/2025 11:00 AM ESTOffice Visit Maternal- Medicine at [facility] [address] [place] [phone] Tejinder Mccarthy MD [address], [address] [place] [address] 11/04/2025 4:00 PM EDTOffice Visit [facility] [place] [address] Rebecca Rizvi APRN-CNP [address] [place] [phone] documented as of this encounter Visit Diagnoses Not on filedocumented in this encounter Additional Health Concerns AssessmentNoted TimePHQ-9 Depression Total Score: 3:04 PM EDTA Body Mass Index follow-up plan has been documented for the exhspup5209/11/2018 4:32 PM EDTdocumented as of this encounter Care Teams Team MemberRelationshipSpecialtyStart DateEnd Date Rebecca Rizvi APRN-CNP [address] [place] [phone] PCP - GeneralNurse Practitioner08/23/22documented as of this encounter
--- OUTSIDE RECORDS SUMMARY | 2025-03-04 12:48 | XMS_ITS | Encounter Summary ---
Author Organization [facility] tem Address [id number] [address] [place] [address] Care Team Providers Care Marble And Granite Polisher Name Role Phone Rebecca Rizvi BLANCA-RECEIVER Primary Care Provider Encounter Details DateTypeDepartmentCare Team (Latest Contact Info)Jeaxxdorfim27/16/2025Orders Only Maternal- Medicine at [facility] [address] [place] [address] Ref Prov, [place] [address] Social History Tobacco UseTypesPacks/DayYears UsedDateSmoking Tobacco: FormerCigarettes0.57.9 Started: 04/05/2017Smokeless Tobacco: NeverAlcohol UseStandard Drinks/Week CommentsNot Currently3 (1 standard drink = 0.6 oz pure alcohol)occasionalAHC UtilitiesAnswerDate RecordedIn the past 12 months has the [employer], gas, oil, or water [employer] threatened to shut off services in your home?No03/28/2024Overall Financial Resource Strain (CARDIA)AnswerDate RecordedHow hard is it for you to pay for the very basics like food, housing, medical care, and heating?Not hard at all05/07/2024HQ-2AnswerDate RecordedTotal Ejggn007PRAPARE - TransportationAnswerDate RecordedIn the past 12 months, has lack of transportation kept you from medical appointments or from getting medications?No 03/28/2024In the past 12 months, has lack of transportation kept you from meetings, work, or from getting things needed for daily living?No11/ [place] Depression ScaleAnswerDate RecordedEdinburgh Depression Scale Vdyba813The thought of harming myself has occurred to me.Never05/07/2024Housing InstabilityAnswerDate RecordedAre you worried or concerned that in the next two months you may not have stable housing that you own, rent or stay in as a part of a household?No4ChildcareAnswerDate RecordedDo problems getting attendant child activity make it difficult for you to work or study?No05/07/2024EmploymentAnswerDate FrrnhtsyXafbgosuhyDoksgqz88/10/2019Hunger ScreeningAnswerDate RecordedWithin the past 12 months we worried whether our food would run out before we got money to buy more.Never True10/29/2024Within the past 12 months the food we bought just didn't last and we didn't have money to get more.Never True10/29/2024Purpose - LifeAnswerDate RecordedPurpose and direction in xvefXmzefvl93/10/2021Estimated Date of DeliveryCommentsYes 6Based on UltrasoundSex and Gender InformationValueDate RecordedSex Assigned at ZvhxqUyfivm09/02/2022 7:15 PM EDTLegal VodBiugdu47/04/2015 2:44 PM EDTGender OvxjsqzzJnlcnj35/02/2022 7:15 PM EDTSexual OrientationStraight 12/07/2021 7:15 PM EDTdocumented as of this encounter Plan of Treatment DateTypeDepartmentCare Team (Latest Contact Info)Dsnjlshpmke92/04/2025 9:00 AM ESTAppointment [facility] Imaging [address] [place] [phone] 03/11/2025 11:00 AM ESTOffice Visit Maternal- Medicine at [facility] [address] [place] [phone] Tejinder Mccarthy MD [address], [address]LO[address] [place], [place] [phone] 11/04/2025 4:00 PM EDTOffice Visit [facility] [address] [place] [address] Rebecca Rizvi APRN-CNP [address] [place] [phone] documented as of this encounter Procedures Procedure NamePriorityDate/TimeAssociated DiagnosisCommentsFETAL FREE CELL DNA (NON-[facility] SEND OUT)Blqzzzo7602/18/2025 11:39 AM EDTdocumented in this encounter Results * Free Cell DNA (Non-[facility] Send Out) (02/18/2025 11:39 AM EDT) Narrative Authorizing ProviderResult TypeResult StatusNot In System Ref ProvLAB BLOOD ORDERABLESFinal ResultPerforming OrganizationAddressCity/State/ZIP CodePhone Number MANUALLY TRANSCRIBED RESULTS documented in this encounter Visit Diagnoses Not on filedocumented in this encounter Additional Health Concerns AssessmentNoted TimePHQ-9 Depression Total Score: 3:04 PM EDTA Body Mass Index follow-up plan has been documented for the gqggaiy9009/11/2018 4:32 PM EDTdocumented as of this encounter Care Teams Team MemberRelationshipSpecialtyStart DateEnd Date Rebecca Rizvi APRN-CNP [address] [place] [phone] PCP - GeneralNurse Practitioner08/23/22documented as of this encounter
== END 2025-03-04 12:43 | disposition home or self-care (01) ==
LOC: LAB 12:42
PROVIDERS: PCP Nurse Practitioner Family; Visit Provider Obstetrics & Gynecology
DX: Z14.8 Genetic carrier of other disease (principal)
CPT/HCPCS: 36415; 84378

== ENCOUNTER 2025-04-10 12:46 | Outpatient (OUT) | payer MEDICAID, SELFPAY ==
--- OUTSIDE RECORDS SUMMARY | 2025-04-10 12:50 | XMS_ITS | Clinical Summary ---
Author Organization [facility] Address [address] [place] [address], [address] [place] [address] Care Team Providers Care Finishing Range Feeder Name Role Phone Neto Karen HILARION - CUSTOMER SOLUTIONS SUPERVISOR Primary Care Provider Unavailable Allergies No known [...] InformationValueDate RecordedSex Assigned at BirthNot on fileLegal FbrXqkzdz75/28/2017 11:11 AM ESTGender IdentityNot on fileSexual OrientationNot on file Last Filed Vital Signs Vital SignReadingTime TakenCommentsBlood Ldqymshq841/7601/ 3:41 PM EST Cduct5884/ 3:41 PM IXIFjvrzczdcxk51.4 ??C (97.6 ??F)02/19/2020 1:24 PM EDTRespiratory Rate--Oxygen Hgcaxbjkss807%06/30/2017 10:28 AM ESTInhaled Oxygen Concentration--Hzmmfr13.7 kg (136 lb)06/03/2020 3:41 PM FTRBnmpgm545 cm (5' 3 ) 06/30/2017 10:28 AM ESTBody Mass Index24.0906/30/2017 10:28 AM EST Plan of Treatment Not on file Insurance Care Teams Team MemberRelationshipSpecialtyStart DateEnd Date Karen Duque APRN - CUST[employer] SUPERVISOR PCP - GeneralNurse Stfluyxoqzzx53/19/17
--- OUTSIDE RECORDS SUMMARY | 2025-04-10 12:50 | XMS_ITS | Encounter Summary ---
Author Organization [facility] Address [facility] [id number] [address] [place] [address] Care Team Providers Care Working Supervisor Name Role Phone Rebecca Rizvi [employer] M[employer] SETTER Primary Care Provider Reason for Referral * Diagnostic Imaging (Routine) - Pending ReviewSpecialtyDiagnoses / Procedures Referred By ContactReferred To ContactMaternal and Medicine Diagnoses AMA (advanced maternal age) multigravida 35+, second trimester Dichorionic diamniotic twin in second trimester Procedures [facility] with or without consult Charlene Lees MD [address] [facility], [address] [place] [address] Phone: tel: fax: [facility]- [facility] at [facility] [address] [place] [address] Phone: tel: fax: Referral IDStatusReasonStart DateExpiration DateVisits RequestedVisits [id number] Encounter Details DateTypeDepartmentCare Team (Latest Contact Info)Mssqgbnwlfs74/24/2025Orders Only [facility] [address] [place] [id number] Debo Shea RN AMA (advanced maternal age) multigravida 35+, second trimester (Primary Dx); Dichorionic diamniotic twin in second trimester Social History Tobacco UseTypesPacks/DayYears UsedDateSmoking Tobacco: FormerCigarettes0.58 Started: 04/05/2017Smokeless Tobacco: NeverAlcohol UseStandard Drinks/Week CommentsNot Currently3 (1 standard drink = 0.6 oz pure alcohol)occasionalAHC UtilitiesAnswerDate RecordedIn the past 12 months has the [employer], [employer], oil, or water 5app threatened to shut off services in your home?No03/28/2024Overall Financial Resource Strain (CARDIA)AnswerDate RecordedHow hard is it for you to pay for the very basics like food, housing, medical care, and heating?Not hard at all05/07/2024HQ-2AnswerDate RecordedTotal Omjnb428PRAPARE - TransportationAnswerDate RecordedIn the past 12 months, has lack of transportation kept you from medical appointments or from getting medications?No 03/28/2024In the past 12 months, has lack of transportation kept you from meetings, work, or from getting things needed for daily living?No03/28/2024 [place] Depression ScaleAnswerDate RecordedEdinburgh Depression Scale Wmeuz605The thought of harming myself has occurred to me.Never4AUDIT-CAnswerDate RecordedFrequency of Alcohol ConsumptionNot on file03/11/2025Q2: How many drinks containing alcohol do you have on a typical day when you are drinking?Patient does not drink03/11/2025Frequency of Binge DrinkingNot on file03/11/2025Housing InstabilityAnswerDate RecordedAre you worried or concerned that in the next two months you may not have stable housing that you own, rent or stay in as a part of a household?No03/28/2024hildcare AnswerDate RecordedDo problems getting early childhood education specialist make it difficult for you to work or study?No05/07/2024EmploymentAnswerDate RecordedEmploymentUnknown 10/15/2018Hunger ScreeningAnswerDate RecordedWithin the past 12 months we worried whether our food would run out before we got money to buy more.Never True03/11/2025Within the past 12 months the food we bought just didn't last and we didn't have money to get more.Never True03/11/2025Purpose - LifeAnswerDate RecordedPurpose and direction in kmulEnnqehn03/10/2021Estimated Date of CjuaysptIdygghzhRse59/11/2026Based on UltrasoundSex and Gender InformationValue Date RecordedSex Assigned at PaddwGudkny58/02/2022 7:15 PM EDTLegal SexFemale 12/09/2014 2:44 PM EDTGender ObcdvineIoyxua45/02/2022 7:15 PM EDTSexual NpbbadxqiqqTxpcasen94/02/2022 7:15 PM EDTdocumented as of this encounter Plan of Treatment DateTypeDepartmentCare Team (Latest Contact Info)Qjreruvmjrd12/05/2025 11:30 AM ESTAppointment [facility] [address] [place] [address] 04/11/2025 1:00 PM ESTOffice Visit [facility]aternal[facility] at [facility] [address] [place] [address] Charlene Lees MD [address] [facility], [address] [place] [address] 11/04/2025 4:00 PM EDTOffice Visit [facility] [address] [place] [address] Rebecca Rizvi, AUDIO VISUAL DIRECTOR-[facility] [address] [place] [address], [place] [address] NameTypePriorityAssociated DiagnosesOrder ScheduleUS [facility] with or without consult ImagingRoutine AMA (advanced maternal age) multigravida 35+, second trimester Dichorionic diamniotic twin in second trimester Expected: 03/31/2026 (Approximate), Expires: 03/31/2026documented as of this encounter Visit Diagnoses Diagnosis AMA (advanced maternal age) multigravida 35+, second trimester- Primary Dichorionic diamniotic twin in second trimester documented in this encounter Additional Health Concerns AssessmentNoted TimePHQ-9 Depression Total Score: 3:04 PM EDTA Body Mass Index follow-up plan has been documented for the mfdjasu2109/11/2018 4:32 PM EDTdocumented as of this encounter Care Teams Team MemberRelationshipSpecialtyStart DateEnd Date Rebecca Rizvi, [employer] M[employer] SETTER [address] [place] [phone] PCP - GeneralNurse Practitioner08/23/22documented as of this encounter
--- OUTSIDE RECORDS SUMMARY | 2025-04-10 12:50 | XMS_ITS | Clinical Summary ---
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 60 capsule 5Active Vit-Fe Fumarate-FA ( Vitamins) 28-0.8 MG tablet Indications:Positive urine test ([facility]),, unspecified gestational age ([facility]),Encounter for supervision of normal first in first trimester ([facility])Take 1 tablet by mouth Daily 30 tablet 5Active famotidine (Pepcid) 20 MG tablet Indications:Heartburn during in second trimester ([facility])Take 1 tablet (20 mg) by mouth in the morning. 30 tablet 5Active acetaminophen (Tylenol) 160 MG/5ML liquid Indications:Nonintractable headache, unspecified chronicity pattern, unspecified headache typeTAKE 20.3 ML BY MOUTH EVERY 6 HOURS NEEDED FOR HEADACHES FOR UP TO 10 DAYS 120 mL 5Active Active Problems ProblemNoted DateDiagnosed DateMultigravida of advanced maternal age in second trimester ([facility])03/13/2025H/O LEEP105/13/2024HSV (herpes simplex virus) xjjjqsipz73/06/2025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 wquoknlkmoyh30/06/2025Twin gestation in second trimester ([facility])03/13/2025Estimated Date of JwzmsvmhGkybvbfwRkx70/11/2026Based on Ultrasound Encounters DateTypeDepartmentCare LfqeSfsucfociog76/02/2025Telephone [facility] [address] [facility] [place] [address] Evelyn Kee LPN 03/18/2025bstract [facility] [address] 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 [address] [place] [phone] Janett Limon LPN 03/13/2025amboo flowsheet [facility] [address] [place] [address] Mamadou Hayden, 03/12/2025bstract [facility] [address] [place] [address] Mamadou Hayden, 03/11/2025External [place] [address] Mamadou Hayden, DO 10/28/2025Clinisync Result Encounter [facility] External Department Unsolicited Mamadou Hayden, DO 02/20/2025Refill [facility] [address] [place] [address] Janett Zheng PA Nonintractable headache, unspecified chronicity pattern, unspecified headache type02/20/2025Telephone [facility] [address] [place] [address] Mamadou Hayden, DO 02/19/2025bstract [facility] [address] [place] [address] Mamadou Hayden, DO 02/19/2025bstract [facility] [address] [place] [address] Mamadou Hayden, DO 02/12/2025 3:20 PM EDTRoutine [facility] [address] [place] [address] Jaylin Chung, NATHANIEL Second trimester ([facility]); 18 weeks gestation of ([facility])5Clinisync Result Encounter [facility] External Department Unsolicited Mamadou Hayden, DO 02/12/2025amboo flowsheet [facility] [address] [place] [address] Jaylin Chung, NATHANIEL 02/10/2025Telephone [facility] [address] [place] [address] Sosa Funes MA 01/22/2025 2:30 PM EDTRoutine [facility] [address] [place] [address] Mamadou Hayden, DO 15 weeks gestation of ([facility]); Second trimester ([facility]); Constipation during in second trimester ([facility]); 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 csjtjxiomnmc53/17/2025Bamboo flowsheet [facility] [address] [place] [phone] Mamadou Hayden DO from Last 3 Months Social History Tobacco UseTypesPacks/DayYears UsedDateSmoking Tobacco: Never Assessed Estimated Date of UnbpusacGnwenluzLwx67/11/2026Based on UltrasoundSex and Gender InformationValueDate RecordedSex Assigned at BirthNot on fileLegal SexFemale 07/20/2022 6:43 PM EDTGender IdentityNot on fileSexual OrientationNot on file Last Filed Vital Signs Vital SignReadingTime TakenCommentsBlood Usozdsam893/6203/13/2025 10:15 AM EST Pulse--Temperature--Respiratory Rate--Oxygen Saturation--Inhaled Oxygen Concentration--Zvtmoa14.6 kg (180 lb)03/13/2025 10:15 AM ESTHeight--Body Mass Index-- Plan of Treatment DateTypeDepartmentCare Team (Latest Contact Info)Fwmmdbjtjsl03/04/2025 1:30 PM ESTRoutine [facility] [address] [place] [phone] Janett Zheng PA [address] [place] [address] Procedures Procedure NamePriorityDate/TimeAssociated DiagnosisCommentsRECURRENT VAGINITIS (HTRX)Fbdmpgz3803/13/2025 11:37 AM EST POCT URINALYSIS CEHDIGSDNdqpnpf92/06/2025 10:18 AM EST Second trimester ([facility]) US OB 14+ WEEKS ANATOMY SCAN03/11/2025 3:30 PM EST ALL MISCELLANEOUS GNIZYoxmszz41/28/2025 12:49 PM EDT ALL VITAMIN R2Nndeyzc40/08/2025 5:26 PM EDT AFP, SERUM, OPEN SPINA EVAUIWMuuwets88/08/2025 5:26 PM EDT BOX FQPTVgbynke13/08/2025 5:26 PM EDT POCT URINALYSIS DQOAYIZHAtehbfs82/17/2025 3:00 PM EDT 15 weeks gestation of ([facility]) Second trimester ([facility]) from Last 3 Months Results * RECURRENT VAGINITIS (HTRX) (03/13/2025 11:37 AM EST)ComponentValueRef Range Test MethodAnalysis TimePerformed AtPathologist SignatureATOPOBIUM VAGINAE0 19.961 - 24.689 ppm03/14/2025 7:09 AM ESTHealthTrackRx at LabPortATOPOBIUM VAGINAENot Uzmrxcou87.961 - 24.689 ppm03/14/2025 7:09 AM ESTHealthTrackRx at LabPortBVAB 2,3 (BACTERIAL VAGINOSIS ASSOCIATED BACTERIA 2, 3); MOBILUNCUS SPP 019.961 - 24.689 ppm03/14/2025 7:09 AM ESTHealthTrackRx at LabPortBVAB 2,3 (BACTERIAL VAGINOSIS ASSOCIATED BACTERIA 2, 3); MOBILUNCUS SPPNot Detected 19.961 - 24.689 ppm03/14/2025 7:09 AM ESTHealthTrackRx at LabPortCANDIDA ALBICANS, PARAPSILOSIS, BWHKLRBJKR860.000 - 30.347 ppm03/14/2025 7:09 AM EST [facility] at LabPortCANDIDA ALBICANS, PARAPSILOSIS, TROPICALISNot Detected 23.000 - 30.347 ppm03/14/2025 7:09 AM ESTHealthTrackRx at LabPortCANDIDA HZSNTKBI515.000 - 31.618 ppm03/14/2025 7:09 AM ESTHealthTrackRx at LabPort BRAN GLABRATANot Abkttnqy96.000 - 31.618 ppm03/14/2025 7:09 AM EST [facility] at LabPortCANDIDA ZWXUDU864.000 - 30.873 ppm1111/2024 7:09 AM ESTHealthTrackRx at LabPortCANDIDA KRUSEINot Bqkfgczr12.000 - 30.873 ppm 03/14/2025 7:09 AM ESTHealthTrackRx at LabPortCHLAMYDIA DKACKIUWILE404.000 - 31.586 ppm03/14/2025 7:09 AM ESTHealthTrackRx at LabPortCHLAMYDIA TRACHOMATIS Not Tqmawtxm37.000 - 31.586 ppm03/14/2025 7:09 AM ESTHealthTrackRx at LabPort GARDNERELLA GQFNIXGIB476.961 - 24.689 ppm03/14/2025 7:09 AM ESTHealthTrackRx at LabFrancisc[facility] Health CrawfordsvilleGARDNERELLA VAGINALISNot Fuguseov93.961 - 24.689 ppm03/14/2025 7:09 AM ESTHealthTrackRx at LabPortMEGASPHAERA (TYPES 1, 2)019.961 - 24.689 ppm 03/14/2025 7:09 AM ESTHealthTrackRx at LabFranc[facility] CrawfordsvilleMEGASPHAERA (TYPES 1, 2)Not Pbizipls92.961 - 24.689 ppm03/14/2025 7:09 AM ESTHealthTrackRx at LabPort NEISSERIA POHDYECYCYQ467.000 - 32.587 ppm03/14/2025 7:09 AM ESTHealthTrackRx at LabFrancisc[facility] Health CrawfordsvilleNEISSERIA GONORRHOEAENot Folnilai81.000 - 32.587 ppm03/14/2025 7:09 AM ESTHealthTrackRx at LabPortTRICHOMONAS WOESNKXPL869.000 - 31.995 ppm 03/14/2025 7:09 AM ESTHealthTrackRx at LabPortTRICHOMONAS VAGINALISNot Gijlzqkk04.000 - 31.995 ppm03/14/2025 7:09 AM ESTHealthTrackRx at [facility]Port MYCOPLASMA UGMALMIEYR706.961 - 24.689 ppm03/14/2025 7:09 AM ESTHealthTrackRx at LabPortMYCOPLASMA GENITALIUMNot Uudpbeqm81.961 - 24.689 ppm03/14/2025 7:09 AM ESTHealthTrackRx at LabPortSpecimen (Source)Anatomical Location / LateralityCollection Method / VolumeCollection TimeReceived TimeTissue 03/13/2025 11:37 AM EST03/14/2025 1:59 AM EST Narrative Authorizing ProviderResult TypeResult StatusCoreindy Hayden DOLAB BLOOD ORDERABLES Final ResultPerforming OrganizationAddressCity/State/ZIP CodePhone Number [facility] [address] [phone] * POCT urinalysis dipstick manually resulted (03/13/2025 10:18 AM EST) Only the most recent of2 resultswithin the time period is included. ComponentValueRef RangeTest MethodAnalysis TimePerformed AtPathologist Signature Color, UAYellowClarity, UAClearGlucose, UANegativeNegative - 2000(110) ++++ mg/dLBilirubin, UANegativeNegative - 4(70) +++ mg/dLKetones, UANegativeNegative - 160(16) ++++ mg/dLSpec Grav, UA1.0151 - 1.03Blood, UANegativeNegative - 50 Masood/mcLpH, UA7.05 - 9Protein, UANegativeNegative - 2000(20) ++++ mg/dL Urobilinogen, UA1.00.2 - 12 mg/dLLeukocytes, UANegativeNegative - 500+++ Albin/mcL Nitrite, UANegativeNegative - PositiveSpecimen (Source)Anatomical Location / LateralityCollection Method / VolumeCollection TimeReceived GgrsIralj85/06/2025 10:18 AM EST Narrative Authorizing ProviderResult TypeResult StatusMamadou Hayden DOPOINT OF CARE TEST ENTER/EDIT ORDERABLESFinal Result * US OB 14+ weeks anatomy scan (03/11/2025 3:30 PM EST)Anatomical Region LateralityModalityBodyUltrasoundSpecimen (Source)Anatomical Location / LateralityCollection Method / VolumeCollection TimeReceived Time03/11/2025 3:30 PM EST Narrative 03/11/2025 3:30 PM EST THIS EXAM WAS PERFORMED AT [facility] NAME: ??DESMOND GUTIERREZ Brigette : 1990 SEX: F Accession Number: [id number] ORDERING PHYSICIAN: MAMADOU HAYDEN REFERRING PHYSICIAN: MAMADOU HAYDEN Coding Procedures ? 31390: Ultrasound, uterus, real time with image documentation, and maternal evaluation ? plus detailed anatomic examination, transabdominal approach;single or first gestation. 2 ? 12364: Ultrasound, uterus, real time with image documentation, transvaginal Indication Screening for Anatomic Survey, Screening for cervical length, Di-Di twin , AMA- Supervision of elderly, Supervision of high risk (twin A)- venticulomegaly, spina bifida, dandy walker malformation, bilateral club feet. History OB History ? 3. Para 2 ? T2 Current Cell free DNA ?Low risk analysis Maternal Assessment Physical Exam ??Height 160 cm, 5 ft 3 in. Weight 82 kg, 180 lb. Initial weight 75 kg, 165 lb. BMI 31.89 kg/m???. Initial ? BMI 29.23 kg/m???. Weight gain 7 kg, 15 lb Method Transabdominal and transvaginal ultrasound examination. View: Suboptimal view: limited by position and activity. Medical Japanese Interpreter Japanese Interpreter declined Twin . Number of fetuses: 2. Dichorionic-diamniotic Dating Previous Ultrasound on: ?01/03/2025 Type of prior assessment: ?GA GA at prior assessment date ?12 w + 2 d GA by previous U/S ? 21 w + 6 d LUCIO by previous Ultrasound: ?07/16/2025 Ultrasound examination on: ? 03/11/2025 GA by U/S based upon: ??AC, BPD, Femur, HC GA by U/S ?21 w + 0 d LUCIO by U/S: ?07/22/2025 GA by U/S based upon (Fetus 2): ?AC, BPD, Femur, HC GA by U/S (Fetus 2) ?22 w + 0 d LUCIO by U/S (Fetus 2): ??07/15/2025 Assigned: ?based on ultrasound (GA), selected on 03/11/2025 Assigned GA (weeks days) ? 21 w + 6 d Assigned LUCIO: ??07/16/2025 Fetus A: General Evaluation Cardiac activity Present. FHR 153 bpm. Presentation: breech, lower right Placenta: Placental site: posterior, away from cervical os Umbilical cord: Cord vessels: 3 vessel cord. Insertion site: not examined Amniotic fluid: Amount of AF: normal amount. MVP 5.8 cm Fetus B: General Evaluation Cardiac activity Present. FHR 120 bpm. Presentation: breech, upper left Placenta: Placental site: posterior, away from cervical os Umbilical cord: Cord vessels: 3 vessel cord. Insertion site: not examined Amniotic fluid: Amount of AF: normal amount. MVP 6.5 cm Fetus A: Biometry Standard BPD ?48.2 mm 20w 4d 8% Hadlock OFD ?64.4 mm 21w 6d 50% Bibiana HC ? 181.0 mm ?20w 4d 3% Hadlock Cerebellum tr 18.9 mm 18w 3d <1% Hill AC ? 167.3 mm ?21w 5d 38% Hadlock Femur ??34.5 mm 20w 6d 12% Hadlock Humerus ?34.3 mm 21w 5d 43% Bibiana HC / AC ?1.08 EFW ?409 g ?17% Hadlock EFW discordance ?19.5 % EFW (lb) ? 0 lb EFW (oz) ? 14 oz EFW by: ?Hadlock ([id number]-NZ-GL-FL) Extended Tibia ??31.1 mm 21w 3d 40% Bibiana Worm Picker ? 10.4 mm CM ? 3.6 mm ?? 5% Nicolaides Head / Face / Neck Cephalic index 0.75 ? 13% Nicolaides Nasal bone: ?not examined Extremities / Bony Struc FL / BPD ? 0.72 FL / HC ?0.19 FL / AC ?0.21 Other Structures FHR ?153 bpm Fetus B: Biometry Standard BPD ?50.1 mm 21w 1d 22% Hadlock OFD ?69.3 mm 23w 1d 87% Bibiana HC ? 192.2 mm ?21w 3d 23% Hadlock Cerebellum tr ??25.4 mm 23w 0d 95% Hill Nuchal fold ?4.2 mm AC ? 180.3 mm ?22w 6d 75% Hadlock Femur ??38.7 mm 22w 3d 59% Hadlock Humerus ?35.1 mm 22w 0d 56% Bibiana HC / AC ?1.07 EFW ?508 g ?75% Hadlock EFW discordance ?19.5 % EFW (lb) ? 1 lb EFW (oz) ? 2 oz EFW by: ?Hadlock (BSD-XA-OT-FL) Extended Tibia ??32.2 mm 21w 6d 57% Bibiana Worm Picker ? 5.4 mm CM ? 6.0 mm ?? 68% Nicolaides Head / Face / Neck Cephalic index 0.72 ? 3% Nicolaides Nasal bone: ?not examined Extremities / Bony Struc FL / BPD ? 0.77 FL / HC ?0.20 FL / AC ?0.21 Other Structures FHR ?120 bpm Fetus A: Anatomy The following structures appear abnormal: Head/Neck: Left lateral ventricle: ventriculomegaly. Cerebellum: banana sign. Spine: Sacral spine. The following structures appear normal: Head / Neck ?Cranium. Choroid plexus. Midline falx. Cavum septi pellucidi. Cisterna magna. Parenchyma. ? Neck. Face: Orbits. Heart/Thorax: 4-chamber view. 3-vessel view. 0-ytvenf-pvidvsg view. Situs. Aortic arch view. Bicaval view. Cardiac ? rhythm. ? Right lung. Left lung. Abdomen: Abdom. wall. Cord insertion. Stomach. Kidneys. Bladder. Small bowel. Large bowel. Right renal artery. ? Left renal artery. Genitals. Spine ??Cervical spine. Thoracic spine. Lumbar spine. Extremities/Skeleton: Right upper arm. Right forearm. Left upper arm. Left forearm. Right upper leg. Right lower leg. Left ? upper leg. The following structures could not be adequately visualized: Heart / Thorax LVOT view. Interventricular septum. Great vessels. Cardiac position. Cardiac axis. Cardiac size. ? Diaphragm. Extremities / ??Right hand. Right foot. Left lower leg. Left foot. Skeleton The following structures could not be examined: Head / Neck ?Vermis. ? Nuchal fold. Face ?? Lips. Profile. Nose. Nasal bone. Maxilla. Mandible. Heart / Thorax RVOT view. Ductal arch view. Extremities / ??Left hand. Skeleton Fetus B: Anatomy The following structures appear normal: Head / Neck ?Cranium. Lateral ventricles. Choroid plexus. Midline falx. Cavum septi pellucidi. Cerebellum. Cisterna ? magna. Parenchyma. ? Neck. Face ?? Lips. Nose. Heart / Thorax 4-chamber view. 3-fyhnhm-gcvmrsw view. Situs. Aortic arch view. Cardiac rhythm. Abdomen ?Abdom. wall. Cord insertion. Stomach. Kidneys. Bladder. Small bowel. Large bowel. Right renal artery. ? Left renal artery. Genitals. Spine ??Cervical spine. Thoracic spine. Lumbar spine. Sacral spine. Extremities / ??Right upper arm. Right forearm. Left upper arm. Right upper leg. Right foot. Left upper leg. Left lower Skeleton ? leg. The following structures could not be adequately visualized: Heart / Thorax 3-vessel view. Interventricular septum. Great vessels. Cardiac position. Cardiac axis. Cardiac size. ? Diaphragm. Extremities / ??Right hand. Left hand. Right lower leg. Left foot. Skeleton The following structures could not be examined: Head / Neck ?Vermis. ? Nuchal fold. Face ?? Profile. Nasal bone. Maxilla. Mandible. Orbits. Heart / Thorax RVOT view. LVOT view. Bicaval view. Ductal arch view. ? Right lung. Left lung. Extremities / ??Left forearm. Skeleton Maternal Structures Uterus Visualized Cervix Visualized ? Approach - Transvaginal: Cervical length 3.53 cm Right Ovary ?Visualized ? Size 1.7 cm x 2.1 cm x 2.8 cm. Vol 5.2 cm??? Left Ovary ? Not visualized Cul de Sac ? Visualized. No free fluid visualized Impression Dichorionic-diamniotic twin consistent with 21w 6d with an LUCIO of 07/16/2025. Twin A is breech, lower right. Intrauterine with normal growth. EFW measures at the 17%, AC measures at the 38%. Amniotic fluid MVP measures 5.8 cm. 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 Intrauterine with normal growth. EFW mesures at the 75%, AC measures at the 75%. Amniotic fluid MVP measures 6.5 cm. Total discordance is 19.5% Recommendations Please see [facility] documentation from today. The patient is scheduled in four to six week(s) to complete anatomic survey. Subsequent follow up or other follow up as clinically determined by primary OB provider unless otherwise specified by [facility]. Results forwarded to ordering provider so they can follow up with the patient as necessary. Procedure Note Radiology, Radiologist, MD - 03/11/2025 THIS EXAM WAS PERFORMED AT [facility] NAME: DESMOND GUTIERREZ : 1990 SEX: F Accession Number: [id number] ORDERING PHYSICIAN: MAMADOU HAYDEN REFERRING PHYSICIAN: MAMADOU HAYDEN Coding Procedures 94187: Ultrasound, uterus, real time with image documentation, and maternal evaluation plus detailed anatomic examination, transabdominalapproach;single or first gestation. 2 89397: Ultrasound, uterus, real time with imagedocumentation, transvaginal Indication Screening for Anatomic Survey, Screening for cervical length, Di-Di twin , AMA- Supervision of elderly, Supervision of high risk (twin A)- venticulomegaly, spina bifida, dandy walker malformation, bilateral club feet. History OB History 3. Para 2 T2 Current Cell free DNA Low risk analysis Maternal Assessment Physical Exam Height 160 cm, 5 ft 3 in. Weight 82 kg, 180 lb. Initialweight 75 kg, 165 lb. BMI 31.89 kg/m???. Initial BMI 29.23 kg/m???. Weight gain 7 kg, 15 lb Method Transabdominal and transvaginal ultrasound examination. View: Suboptimalview: limited by position and activity. Medical Japanese Interpreter Japanese Interpreter declined Twin . Number of fetuses: 2. Dichorionic-diamniotic Dating Previous Ultrasound on: 01/03/2025 Type of prior assessment: GA GA at prior assessment date 12 w + 2 d GA by previous U/S 21 w + 6 d LUCIO by previous Ultrasound: 07/16/2025 Ultrasound examination on: 03/11/2025 GA by U/S based upon: AC, BPD, Femur, HC GA by U/S 21 w + 0 d LUCIO by U/S: 07/22/2025 GA by U/S based upon (Fetus 2): AC, BPD, Femur, HC GA by U/S (Fetus 2) 22 w + 0 d LUCIO by U/S (Fetus 2): 07/15/2025 Assigned: based on ultrasound (GA), selected on 03/11/2025 Assigned GA (weeks days) 21 w + 6 d Assigned LUCIO: 07/16/2025 Fetus A: General Evaluation Cardiac activity Present. FHR 153 bpm. Presentation: breech, lower right Placenta: Placental site: posterior, away from cervical os Umbilical cord: Cord vessels: 3 vessel cord. Insertion site: notexamined Amniotic fluid: Amount of AF: normal amount. MVP 5.8 cm Fetus B: General Evaluation Cardiac activity Present. FHR 120 bpm. Presentation: breech, upper left Placenta: Placental site: posterior, away from cervical os Umbilical cord: Cord vessels: 3 vessel cord. Insertion site: notexamined Amniotic fluid: Amount of AF: normal amount. MVP 6.5 cm Fetus A: Biometry Standard BPD 48.2 mm 20w 4d 8% Hadlock OFD 64.4 mm 21w 6d 50% Bibiana HC 181.0 mm 20w 4d 3% Hadlock Cerebellum tr 18.9 mm 18w 3d <1% Hill AC 167.3 mm 21w 5d 38% Hadlock Femur 34.5 mm 20w 6d 12% Hadlock Humerus 34.3 mm 21w 5d 43% Bibiana HC / AC 1.08 EFW 409 g 17% Hadlock EFW discordance 19.5 % EFW (lb) 0 lb EFW (oz) 14 oz EFW by: Hadlock (MXQ-ZY-PY-FL) Extended Tibia 31.1 mm 21w 3d 40% Bibiana Worm Picker 10.4 mm CM 3.6 mm 5% Nicolaides Head / Face / Neck Cephalic index 0.75 13% Nicolaides Nasal bone: not examined Extremities / Bony Struc FL / BPD 0.72 FL / HC 0.19 FL / AC 0.21 Other Structures FHR 153 bpm Fetus B: Biometry Standard BPD 50.1 mm 21w 1d 22% Hadlock OFD 69.3 mm 23w 1d 87% Bibiana HC 192.2 mm 21w 3d 23% Hadlock Cerebellum tr 25.4 mm 23w 0d 95% Hill Nuchal fold 4.2 mm AC 180.3 mm 22w 6d 75% Hadlock Femur 38.7 mm 22w 3d 59% Hadlock Humerus 35.1 mm 22w 0d 56% Bibiana HC / AC 1.07 EFW 508 g 75% Hadlock EFW discordance 19.5 % EFW (lb) 1 lb EFW (oz) 2 oz EFW by: Hadlock (QMC-WP-XS-FL) Extended Tibia 32.2 mm 21w 6d 57% Bibiana Worm Picker 5.4 mm CM 6.0 mm 68% Nicolaides Head / Face / Neck Cephalic index 0.72 3% Nicolaides Nasal bone: not examined Extremities / Bony Struc FL / BPD 0.77 FL / HC 0.20 FL / AC 0.21 Other Structures FHR 120 bpm Fetus A: Anatomy The following structures appear abnormal: Head/Neck: Left lateral ventricle: ventriculomegaly. Cerebellum: bananasign. Spine: Sacral spine. The following structures appear normal: Head / Neck Cranium. Choroid plexus. Midline falx. Cavum septipellucidi. Cisterna magna. Parenchyma. Neck. Face: Orbits. Heart/Thorax: 4-chamber view. 3-vessel view. 7-hiopnw-whzuldb view. Situs.Aortic arch view. Bicaval view. Cardiac rhythm. Right lung. Left lung. Abdomen: Abdom. wall. Cord insertion. Stomach. Kidneys. Bladder. Smallbowel. Large bowel. Right renal artery. Left renal artery. Genitals. Spine Cervical spine. Thoracic spine. Lumbar spine. Extremities/Skeleton: Right upper arm. Right forearm. Left upper arm. Left forearm. Right upper leg. Right lower leg. Left upper leg. The following structures could not be adequately visualized: Heart / Thorax LVOT view. Interventricular septum. Great vessels. Cardiac position. Cardiac axis. Cardiac size. Diaphragm. Extremities / Right hand. Right foot. Left lower leg. Left foot. Skeleton The following structures could not be examined: Head / Neck Vermis. Nuchal fold. Face Lips. Profile. Nose. Nasal bone. Maxilla. Mandible. Heart / Thorax RVOT view. Ductal arch view. Extremities / Left hand. Skeleton Fetus B: Anatomy The following structures appear normal: Head / Neck Cranium. Lateral ventricles. Choroid plexus. Midline falx.Cavum septi pellucidi. Cerebellum. Cisterna magna. Parenchyma. Neck. Face Lips. Nose. Heart / Thorax 4-chamber view. 8-jrfras-tafkyqo view. Situs. Aortic archview. Cardiac rhythm. Abdomen Abdom. wall. Cord insertion. Stomach. Kidneys. Bladder.Small bowel. Large bowel. Right renal artery. Left renal artery. Genitals. Spine Cervical spine. Thoracic spine. Lumbar spine. Sacral spine. Extremities / Right upper arm. Right forearm. Left upper arm. Right upperleg. Right foot. Left upper leg. Left lower Skeleton leg. The following structures could not be adequately visualized: Heart / Thorax 3-vessel view. Interventricular septum. Great vessels.Cardiac position. Cardiac axis. Cardiac size. Diaphragm. Extremities / Right hand. Left hand. Right lower leg. Left foot. Skeleton The following structures could not be examined: Head / Neck Vermis. Nuchal fold. Face Profile. Nasal bone. Maxilla. Mandible. Orbits. Heart / Thorax RVOT view. LVOT view. Bicaval view. Ductal arch view. Right lung. Left lung. Extremities / Left forearm. Skeleton Maternal Structures Uterus Visualized Cervix Visualized Approach - Transvaginal: Cervical length 3.53 cm Right Ovary Visualized Size 1.7 cm x 2.1 cm x 2.8 cm. Vol 5.2 cm??? Left Ovary Not visualized Cul de Sac Visualized. No free fluid visualized Impression Dichorionic-diamniotic twin consistent with 21w 6d with an EDDof 07/16/2025. Twin A is breech, lower right. Intrauterine with normal growth. EFW measures at the 17%,AC measures at the 38%. Amniotic fluid MVP measures 5.8 cm. 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 Intrauterine with normal growth. EFW mesures at the 75%,AC measures at the 75%. Amniotic fluid MVP measures 6.5 cm. Total discordance is 19.5% Recommendations Please see M documentation from today. The patient is scheduled in four to six week(s) to complete anatomicsurvey. Subsequent follow up or other follow up as clinically determined byprimary OB provider unless otherwise specified by [facility]. Results forwarded to ordering provider so they can follow up with thepatient as necessary. Authorizing ProviderResult TypeResult StatusCorey Jackelyn DOIMG OB US PROCEDURES Final Result * ALL MISCELLANEOUS TEST (03/04/2025 12:49 PM EDT)ComponentValueRef RangeTest MethodAnalysis TimePerformed AtPathologist SignatureMISCELLANEOUS TESTCOMMENT. TBHComment: Test Ordered: [id number] Amdcblbca-7-Ojycicoih, RBC Zrraekztn-0-Glfoknphl, RBC <0.3 mg/dL ML ?? Reference Range: . REFERENCE VALUE Reference interval (normal range): <=0.9 Therapeutic range: <=4.9 ADDITIONAL INFORMATION Liquid Chromatography-Tandem Mass Spectrometry (LC-MS/MS) This test was developed and its performance characteristics determined by [facility] in a manner consistent with CLIA requirements. This test has not been cleared or approved by the U.S. Food and Drug Administration. Performed at: ??ML - [facility] [address] ??[id number] Blueprint Reader: Kellen De La Paz PhD, Phone: ??[phone] Performed at: ??CB - [facility] [address] ??[id number] Blueprint Reader: Jose Rainey PhD, Phone: ??[phone] Specimen (Source)Anatomical Location / LateralityCollection Method / Volume Collection TimeReceived Time03/04/2025 12:49 PM EDT1 12:59 PM EDT Narrative [facility] - 03/14/2025 5:09 PM EST [id number] Mqzidoqme-4-Dwwdbhkef, RBC Authorizing ProviderResult TypeResult StatusCorey Jackelyn DOCLINISYNCFinal Result Performing OrganizationAddressCity/State/ZIP CodePhone Number [facility] * BOX TEST (02/12/2025 5:26 PM EDT)ComponentValueRef RangeTest MethodAnalysis TimePerformed AtPathologist SignatureBOX TEST SENT [id number] 02/12/2025TBHSpecimen (Source)Anatomical Location / LateralityCollection Method / VolumeCollection TimeReceived Time02/12/2025 5:26 PM EDT1 5:46 PM EDT Narrative [facility] - 02/12/2025 5:59 PM EDT Authorizing ProviderResult TypeResult StatusCorey Jackelyn DOLAB BLOOD ORDERABLES Final ResultPerforming OrganizationAddressCity/State/ZIP CodePhone Number [facility] * AFP, SERUM, OPEN SPINA BIFIDA (02/12/2025 5:26 PM EDT)ComponentValueRef Range Test MethodAnalysis TimePerformed AtPathologist SignatureRESULTSReport.TBHTEST RESULTS:*Screen Negative*.TBHGEST. AGE ON COLLECTION DATE18.0. weeksTBHGESTAT. AGE BASED ONUltrasound.TBHComment: ?18.0 on 02/12/2025 Recalculations are not recommended when gestational dating by LMP and ultrasound are within 10 days. MATERNAL AGE AT EDD34.7. yrTBHRACECaucasian.WQSGJQMBS987. lbsTBHINSULIN DEP DIABETESNo.TBHMULTIPLE GESTATIONTwins.TBHAFP JONDV622.6. ng/mLTBHAFP MOM3.18.TBH OSBR RISK 1 IN304.TBHINTERPRETATIONComment.TBHComment: Interpretation: [...] Customer Services to discuss available options. ??The [employer] recommends amniocentesis be offered to women age 35 and older. COMMENT:Comment.TBHComment: Kenia Schreiber, Ph.D., [facility] Director References: Available Upon Request. Multiples Of Median Cutoffs ?For AFP Elevations Palmer ?? 2.5 ? Black ?2.8 IDD ? 2.0 ? Twins ?4.5 ?Abbreviation Definitions IDD - Insulin Dep Diabetes OSBR - Open Spina Bifida Risk For further inquiries contact [facility] at [phone]. This test was developed and its performance characteristics determined by [facility]. It has not been cleared or approved by the Food and Drug Administration. Performed at: ??TG - [facility] [id number] [place], [place] ??[id number] Blueprint Reader: Steven Bernard [facility], Phone: ??[phone] Specimen (Source)Anatomical Location / LateralityCollection Method / Volume Collection TimeReceived Time02/12/2025 5:26 PM EDT1 5:46 PM EDT Narrative [facility] - 02/15/2025 1:06 AM EDT N N ULTRASOUND [id number] 18 N 2 [address] White/ Authorizing ProviderResult TypeResult StatusCorey Jackelyn DOLAB BLOOD ORDERABLES Final ResultPerforming OrganizationAddressCity/State/ZIP CodePhone Number [facility] * ALL VITAMIN B6 (02/12/2025 5:26 PM EDT)ComponentValueRef RangeTest Method Analysis TimePerformed AtPathologist SignatureVITAMIN B6, BXGCQE72.43.4 - 65.2 ug/LTBHComment: This test was developed and its performance characteristics determined by [facility]. It has not been cleared or approved by the Food and Drug Administration. Deficiency: <3.4 ? Marginal: ?3.4 - 5.1 Adequate: >5.1 Performed at: ??BN - [facility] ??[id number] Blueprint Reader: Dea Amaya MD, Phone: ??[phone] Specimen (Source)Anatomical Location / LateralityCollection Method / Volume Collection TimeReceived Time02/12/2025 5:26 PM EDT1 5:46 PM EDT Narrative [facility] - 02/17/2025 4:09 PM EDT Authorizing ProviderResult TypeResult StatusCorey Jackelyn DOCLINISYNCFinal Result Performing OrganizationAddressCity/State/ZIP CodePhone Number [facility] Last 3 Months Insurance Care Teams Team MemberRelationshipSpecialtyStart DateEnd Date Rebecca Rizvi MD [address] [place] [phone] PCP - GeneralFamily Medicine01/03/25
--- OUTSIDE RECORDS SUMMARY | 2025-04-10 12:50 | XMS_ITS | Encounter Summary ---
Author Organization [facility] tem Address [id number] [address] [place] [address] Care Team Providers Care Highway Technician Name Role Phone Rebecca Rizvi [employer] SAL[employer]ECUTIVE Primary Care Provider Encounter Details DateTypeDepartmentCare Team (Latest Contact Info)Snyljpanlif28/24/2025Orders Only Maternal- Medicine at [facility] [address] [place] [phone] Malena Ocasio, DUY Social History Tobacco UseTypesPacks/DayYears UsedDateSmoking Tobacco: FormerCigarettes0.58 Started: 04/05/2017Smokeless Tobacco: NeverAlcohol UseStandard Drinks/Week CommentsNot Currently3 (1 standard drink = 0.6 oz pure alcohol)occasionalAHC UtilitiesAnswerDate RecordedIn the past 12 months has the electric, gas, oil, or water [employer] threatened to shut off services in your home?No03/28/2024Overall Financial Resource Strain (CARDIA)AnswerDate RecordedHow hard is it for you to pay for the very basics like food, housing, medical care, and heating?Not hard at all05/07/2024HQ-2AnswerDate RecordedTotal Diwya928PRAPARE - TransportationAnswerDate RecordedIn the past 12 months, has lack of transportation kept you from medical appointments or from getting medications?No 03/28/2024In the past 12 months, has lack of transportation kept you from meetings, work, or from getting things needed for daily living?No03/28/2024 [place] Depression ScaleAnswerDate RecordedEdinburgh Depression Scale Rnuvs328The thought of harming myself has occurred to [...] of a household?No03/28/2024hildcare AnswerDate RecordedDo problems getting salesperson children's shoes make it difficult for you to work or study?No05/07/2024EmploymentAnswerDate RecordedEmploymentUnknown 10/15/2018Hunger ScreeningAnswerDate RecordedWithin the past 12 months we worried whether our food would run out before we got money to buy more.Never True03/11/2025Within the past 12 months the food we bought just didn't last and we didn't have money to get more.Never True03/11/2025Purpose - LifeAnswerDate RecordedPurpose and direction in dpzgSjsrotx22/10/2021Estimated Date of FrughdqnSncoxushFgb07/11/2026Based on UltrasoundSex and Gender InformationValue Date RecordedSex Assigned at WxsjaJrnyya30/02/2022 7:15 PM EDTLegal SexFemale 12/09/2014 2:44 PM EDTGender QflmvlspLgsluu32/02/2022 7:15 PM EDTSexual UjhxtbzgrcbNujgxnsc67/02/2022 7:15 PM EDTdocumented as of this encounter Plan of Treatment DateTypeDepartmentCare Team (Latest Contact Info)Fmmmflozsja05/05/2025 11:30 AM ESTAppointment [facility] [address] [place] [address] 04/11/2025 1:00 PM ESTOffice Visit Maternal- Medicine at [facility] [address] [place] [address] Charlene Lees MD [address] [facility], [address] [place] [phone] 11/04/2025 4:00 PM EDTOffice Visit [facility] [address] [place] [phone] Rebecca Rizvi APRN-CNP [address] [place] [phone] documented as of this encounter Visit Diagnoses Not on filedocumented in this encounter Additional Health Concerns AssessmentNoted TimePHQ-9 Depression Total Score: 3:04 PM EDTA Body Mass Index follow-up plan has been documented for the mtngpis4709/11/2018 4:32 PM EDTdocumented as of this encounter Care Teams Team MemberRelationshipSpecialtyStart DateEnd Date Rebecca Rizvi APRN-CNP [address] [place] [phone] PCP - GeneralNurse Practitioner08/23/22documented as of this encounter
--- OUTSIDE RECORDS SUMMARY | 2025-04-10 12:50 | XMS_ITS | Clinical Summary ---
Author Organization Sonatype tem Address [id number] [address] [place] [address] Care Team Providers Care Hair Boiler Operator Name Role Phone Rebecca Rizvi BLANCA-TREE SURGEON Primary Care Provider Allergies No known active allergies Medications * This document contains information received from the source organization and may not represent a complete record from that organization. MedicationSigDispense QuantityRefillsLast FilledStart DateEnd DateStatus omeprazole (PriLOSEC) 40 mg capsule Indications:Heart burnTake 1 capsule (40 mg total) by mouth in the morning. 30 capsule 604Active Additional Information Patient not taking.Reported on 03/11/2025 128-cana-xqjzed 6-dha 27 mg iron-1 mg -205 mg capsule Indications: care in third trimesterTake 1 each by mouth in the morning. 90 capsule 4084Active drospirenone, contraceptive, 4 mg (28) tablet Take 4 mg by mouth in the morning. 28 tablet 1214Active docusate sodium (COLACE) 100 mg capsule Indications:Constipation, unspecified constipation typeTAKE 1 CAPSULE BY MOUTH DAILY NEEDED FOR CONSTIPATION 30 capsule 4Active omega-3 acid ethyl esters (LOVAZA) 1 gram capsule TAKE 2 CAPSULES BY MOUTH EVERY MORNING AND TAKE TWO CAPSULES BY MOUTH AT BEDTIME 120 capsule 5Active Additional Information Patient not taking.Reported on 03/11/2025 valACYclovir (VALTREX) 1000 mg tablet Indications:HSV infectionTake [...] then remove for 1 week. 1 each 1105Active Bacillus coagulans (BACID WITH LACTOSPORE) 1 billion cell capsule Take 1 capsule by mouth in the morning. 90 capsule 5Active magnesium oxide (MAGOX) 400 mg tablet Take 1 tablet (400 mg total) by mouth before bedtime. 90 tablet 5Active XRIX-lwmkivsv-iymerhqzxlu xt 100-100-225 mg capsule Take 1 capsule [...] EVERY MORNING 30 tablet 605Active Active Problems Patient Care Coordination No te Formatting of this note migh t be different from the original. 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 CSF is present at the craniocervical junction. There is ventricular enlargement of the left lateral ventricle which measures 12 mm on MRI and 11.4 mm on ultrasound. The right lateral ventricle measures 9.5 mm on MRI and 8.3 mm on ultrasound. 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 Muscle loss is also present below the knees. []Peds Craniofacial: []NICU Consult: []Palliative Care Consult: []SGM: []Life Connection: [x][place]: 03/17 and 03/18 [x] MRI & US 03/17/25 Twin A A. Myelomeningocele, L5 level.The imaging findings are most consistent with an open neural tube defect at the L5 level. Although there are no marker, amniotic fluid or serum, to confirm this vs a closed dysraphism, i.e. myelocystocele, the imaging findings strongly support the former. Specifically,the MRI findings show the absence of posterior elements extending from L5 through the sacrum with adorsal sac measuring 2.3 cm craniocaudal by 1.2 cm anterior to posterior and 2.5 cm transverse on MRI. MRI also shows the elongation of the spinal cord which extends into the sac and inserts onto the dorsum of the sac. The conus is low-lying and inserts as a neural placode onto the dorsum of the sac. Ultrasound shows that the absence of the posterior elements begins at L5 while splaying of the dorsal elements begins at L4. Ultrasound measurements of the sac itself are 2.5 x 2.4 cm. Ultrasound additionally shows that there is presence of hip flexion and adduction bilaterally as well as knee extension and flexion, whereas ankle dorsi and plantarflexion are absent in the presence of bilateral clubfoot deformities. B. A Chiari II malformation is present, with caudal cerebellar extent just below the foramen magnum. CSF is preserved at the craniocervical junction. The posterior fossa is small with mild tectal beaking. The fourth ventricle is nearly effaced. The extra-axial fluid spaces are normal.. The brainstem morphology is otherwise normal. The corpus callosum is normal. (This is suggestive of Grade 2-3 Chiari II malformation, although this is not part of the formal radiology report) C. There is mild to moderate left lateral ventriculomegaly present on both ultrasound and MRI. Specifically, on MRI the left lateral ventricle measures 12 mm with the posterior horn of the right lateral ventricle measuring 9.5 mm. Corresponding measurements on ultrasound reveal a left lateral ventricular measurement of 11 mm on the left with a right lateral ventricle measuring 8.3 mm. biometry of twin A on ultrasound reveals a head circumference below the 1st percentile for gestational age, a biparietal diameter at the 6th percentile for gestational age, and a ratio of head circumference to abdominal circumference at 1.08 (13th percentile). D. 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 On evaluation of movement on ultrasound., in addition to bilateral lack of dorsi or plantarflexion, there did appear to be some decreased muscle mass of the lower extremities below the level of the knee. [][place]wide: [x][place]: VV 03/13/25 Today, we discussed the option of selective reduction with the patient, inclusive of risks of bleeding, infection, rupture of membranes, loss of co-twin (quoted between 1-8%), and risks for delivery, especially early delivery (Christopher 2022, Mackenzie 2022, Tyler 2020). I specifically discussed that, ideally, we would seek to reduce the as soon as possible, based on data demonstrating a higher risk of cotwin loss and delivery among individuals undergoing selective reduction above 20 weeks, though some data demonstrate a signal between 16-18 weeks []UH: []JESSICA CHS: Delivery Recommendation: [] Term at local hospital [] Term at [facility] Surveillance Plan: [] Survey at __ weeks [] Growth q __ weeks [] Dopplers q __ weeks [] Echo at __ weeks [] Cervical length q __ weeks [] TTTS q __ weeks [] Wkly NST/PAMELA starting at __ weeks [] 2x/wk NST/PAMELA starting at __ weeks ProblemNoted DateDiagnosed DateAMA (advanced maternal age) multigravida 35+, second skaplqprq07/04/2025Anemia affecting in third trimester 01/05/2024 Overview (01/23/2024): 01/15: IV iron 01/22: IV iron Vitamin D zvrvpeefie65/03/2023Estimated Date of DeliveryCommentsYes 07/16/2025ased on Ultrasound Resolved Problems ProblemNoted DateDiagnosed DateResolved DateNSVD (normal spontaneous vaginal delivery)/6557Ibowiwkso17Normal labor03/26/20249 weeks gestation of jwfsniusq65bdominal pressure Irregular uterine jocfbqmgwtee47History of heroin abuse Overview (03/17/2024): 03/17/2024: Patient states she has been clean since 2011. Tiyzayzd57 Overview (11/14/2023): Bleeding after intercourse - 10-31-23 spec exam done. Bleeding is coming from metaplasia of cervix. Thick/closed [id number] = GC and CT negative Hx of LEEP - 2016 - full term baby after Cervical lengths [...] MFM consult: Rh negative state in antepartum wachrr30HSV infection Overview (10/31/2023): 09-05-23 genital lesion cultured- + HSV2 States gets oral lesions Discussed genital HSV and need for prophylaxis at 34 weeks. 6-25-24 - c/o HSV oral break out. 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 They have a oegx-sefq-uly daughter that has a mild form (Clemens [...] 25%. We reviewed all children born in [place] are screened for galactosemia via screening (NBS) after . 1. Amniocentesis discussed and declined. 2. Continue to monitor the via ultrasound. 3. Patient diagnoses: galactosemia carriers, family history of galactosemia and muscular dystrophy History of loop electrical excision procedure (LEEP) Overview (09/05/2023): LEEP 2016 Cervical lengths to start at 16 weeks until 24 weeks. Intermittent explosive ffastqxx32/ipolar bkjdutnm94/23/2023 10/01/20249109Iqbpasxy14/02/202305/History of drug abuse09/06/2022Eczema31Vitamin B 12 wheyjwkfdk82/02/2023 02/21/2023FH: brain mzmhwynp99pontaneous vaginal delivery Failed induction of labor, teomzzinai68 Intrauterine lgygsjwni54Echogenic focus of heart of fetus affecting antepartum care of Overview (10/09/2017): First Trimester and MSAFP is WNL US was repeated and the EIF Is smaller - her first trimester screen was negative PLAN: rpt US in 4 weeks Notify Peds at History of hepatitis Overview (09/08/2023): treated 04/2020 with Mavyret (Dr. Daniel) 09/07/22 viral load undetectable 09/05/23 viral load undetected Rh negative, antepartum, first xzmhgwcvz92Attention deficit hyperactivity disorder (ADHD), predominantly hyperactive type03/20/2017 10/01/20241437Hruvpwl53Headaches, ygxdxdz84HCV antibody jrlbqffu20 Overview (07/17/2017): Avoid scalp electrode Notify peds at delivery LFT and viral load each trimester and at delivery Elevated liver retfaoj11Cannabis abuse Tobacco useHistory of opioid abuse Overview (08/14/2017): Has not used opoid since Hx of intravenous drug use in xbkdrbjvt29CIN II (cervical intraepithelial neoplasia II) Overview (08/14/2017): =ASC-H =HGSIL = MIGNON - Dr. Bhatia - PAP=WNL Rpt PAP post Encounters DateTypeDepartmentCare WyezXtaszfftriq72/24/2025Orders Only Maternal- Medicine at [facility] [address] [place] [address] Debo Shea, [place]LE[place] AMA (advanced maternal age) multigravida 35+, second trimester (Primary Dx); Dichorionic diamniotic twin in second icblaknhj88/24/2025Orders Only Maternal- Medicine at [facility] [address] [place] [address] Malena Ocasio, [facility] 03/19/2025Orders Only Maternal- Medicine at [facility] [address] [place] [address] Ref Prov, Not In System 03/18/2025Telephone Maternal- Medicine at [facility] [address] [place] [address] Helen Robertson, KLEVER 03/11/2025 11:00 AM ESTOffice Visit Maternal- Medicine at [facility] [address] [place] [address] Tejinder Mccarthy MD Anemia affecting in third trimester (Primary Dx); AMA (advanced maternal age) multigravida 35+, second emnvsbllj31/04/2025 8:54 AM EST - 03/11/2025 11:59 PM ESTHospital Encounter [facility] US Imaging [address] [place] [address] Screening, , for anatomic survey Discharge Disposition: Home03/11/20257745Zxdhtw52/16/2025Orders Only Maternal- Medicine at [facility] [address] [place] [address] Ref Prov, Not In System 02/19/2025 1:45 PM EDTSupport Visit Maternal- Medicine at [facility] [address] [place] [address] 02/19/20256887Qscfyr04/06/2025bstract Maternal- Medicine at [facility] [address] [facility] [place] [phone] Tejinder Mccarthy MD from Last 3 Months Immunizations ImmunizationAdministration DatesNext MjbVYN0206/12/1989,02/08/1990,1989DTaP, Cythvwanzyq44/08/2002,10/04/1994,04/16/1991HPV Mveidkqxybsl02/14/2007Hep A, 2 Dose03/21/2007Hep B, Adolescent or Tlhwelzef18/26/2002,05/15/2001,04/04/2001HiB 02/12/1991,09/20/1990,08/05/1990Influenza, Injectable, quadrivalent (PF) 02/27/2024,05/22/2017MMR05/15/2001,02/12/1991Meningococcal FLC8J6503/21/2007OPV 10/04/1994,04/16/1991,02/08/1990,1989Polio, Wglcycyxquh29/08/2002RSV, bivalent, protein subunit RSVpreF, diluent reconstituted, 0.5 mL, PF02/23/2024 Rho (D) Immune Xpllnipi01/21/2024,01/02/2024,11/14/2023,08/23/2023,09/11/2017Td, Yqrhzjcmlfn60/26/8068Timf09/06/2024 Family History Medical HistoryRelationNameCommentsDrug abuseBrotherDrug abuseFatherHeart diseaseFatherMigrainesFatherParkinsonismMaternal GrandfatherBreast cancer Maternal Grandmotherdiagnosed 2016DepressionMotherDrug abuseMotherMigraines MotherHeart diseasePaternal GrandmotherColon cancerNeg HxOvarian cancerNeg Hx Uterine cancerNeg HxRelationNameStatusCommentsBrotherFatherAliveMaternal GrandfatherDeceasedMaternal GrandmotherAliveMotherAlivePaternal Grandfather unknownDeceasedPaternal GrandmotherDeceased Social History Tobacco UseTypesPacks/DayYears UsedDateSmoking Tobacco: FormerCigarettes0.58 Started: 04/05/2017Smokeless Tobacco: Never Tobacco Cessation:Counseling Given: [...] care, and heating?Not hard at all05/07/2024HQ-2AnswerDate RecordedTotal Gwgyw149PRAPARE - TransportationAnswerDate RecordedIn the past 12 months, has lack of transportation kept you from medical appointments or from getting medications?No03/28/2024In the past 12 months, has lack of transportation kept you from meetings, work, or from getting things needed for daily living?No03/28/2024Edinburgh Depression ScaleAnswerDate Recorded [place] Depression Scale Gidmm452The thought of harming myself has occurred to me.Never05/07/2024UDIT-CAnswerDate RecordedFrequency of Alcohol ConsumptionNot on file03/11/2025Q2: How many drinks containing alcohol do you have on a typical day when you are drinking?Patient does not drink 03/11/2025Frequency of Binge DrinkingNot on file03/11/2025Housing Instability AnswerDate RecordedAre you worried or concerned that in the next two months you may not have stable housing that you own, rent or stay in as a part of a household?No03/28/2024hildcareAnswerDate RecordedDo problems getting early childhood teacher assistant make it difficult for you to work or study?No05/07/2024EmploymentAnswerDate UbbvkraqSabrtyljrkPzwaavb64/10/2019Hunger ScreeningAnswerDate RecordedWithin the past 12 months we worried whether our food would run out before we got money to buy more.Never True03/11/2025Within the past 12 months the food we bought just didn't last and we didn't have money to get more.Never True03/11/2025Purpose - LifeAnswerDate RecordedPurpose and direction in axkpRpluqzf51/10/2021 Estimated Date of PnrbwlghBdomuqtfXfc94/11/2026Based on UltrasoundSex and Gender InformationValueDate RecordedSex Assigned at UcqfrDwltzd48/02/2022 7:15 PM EDT Legal TmcMdubhx47/04/2015 2:44 PM EDTGender AiixoovdEywgac43/02/2022 7:15 PM EDT Sexual DikibfpfogwStpddezm68/02/2022 7:15 PM EDT Last Filed Vital Signs Vital SignReadingTime TakenCommentsBlood Lzxmvgqc560/6903/11/2025 9:42 AM EST Ifpau281103/11/2025 9:42 AM KODFicpadbqutp41.6 ??C (97.8 ??F)10/29/2024 3:04 PM EDTRespiratory Dzvf372605/28/2023 3:55 PM ESTOxygen Agtxzemaoa78%10/29/2024 3:04 PM EDTInhaled Oxygen Concentration--Atjgdv56.9 kg (180 lb 9.6 oz)03/11/2025 9:42 AM ZXUCpsymb364 cm (5' 2.99 )03/11/2025 9:42 AM ESTBody Mass Ewjxq720903/11/2025 9:42 AM EST Plan of Treatment DateTypeDepartmentCare Team (Latest Contact Info)Wtikljswjfd50/05/2025 11:30 AM ESTAppointment [facility] Imaging [address] [place] [phone] 04/11/2025 1:00 PM ESTOffice Visit Maternal- Medicine at [facility] [address] [place] [address] Charlene Lees MD [address], [address] [place] [address] 11/04/2025 4:00 PM EDTOffice Visit [facility] [address] [place] [phone] Rebecca Rizvi, SPECIAL WARFARE OPERATOR-TREE SURGEON [address] [place] [address], [facility] [place] [address] Health MaintenanceDue DateLast DoneCommentsAdult BMI Follow Up Plan10/04/2007 Influenza Vjxisob81/, 05/22/2017Depression Dxnhasvwk09/24/2026 10/29/2024, 05/07/2024dult BMI Yttgkpblv74/08/2024Tobacco Screening Pap Smear8010/01/2024, 10/01/2024, 09/05/2023, Additional history existsDTaP,Tdap and Td Vaccines (9 - Td or Tdap)01/11/2034 01/12/2024, 12/31/2001, 05/15/2001, Additional history existsRSV ( or age 60+ yrs)Urznjasic31/18/2024 Medical Devices Not on file Procedures Procedure NamePriorityDate/TimeAssociated DiagnosisCommentsULTRASOUND OFFICE Zjipfwx5903/18/2025 11:14 AM ESTMR ZQLLZNwuprsw19/10/2025 11:19 AM ESTULTRASOUND VIGIQYNirqwkm52/10/2025 11:07 AM ESTUS MFM COMPREHENSIVE ANATOMIC SURVEY Tswgfbc3603/11/2025 11:56 AM EST Screening, , for anatomic survey FREE CELL DNA (NON-[facility] SEND OUT)Jpvqauk8102/18/2025 11:39 AM EDTTYPE AND AUAUVRKfnjofx45/23/2025 HEPATITIS B SURFACE MDCCTOUOmpcprh60/23/2025 DRUG SCREEN, XJVVYTxjwwjc63/23/2025 CBC (NO DIFF)Partvzq1701/28/2025 HIV 1&2 AB/AG SCREEN (P24 AG)Dgryudl3701/28/2025 RUBELLA IGG IMMUNE WBRZEOUgxfofj28/23/2025 SYPHILIS TOTAL(UNKNOWN SYPHILIS STATUS)Cupkczu8401/28/2025 HIGH RISK HPV W/OPRIFpsmimm88/27/2025 1:50 PM EDT Screening for cervical cancer from Last 3 Months or Most Recently Relevant to Health Maintenance Results * Ultrasound - Office (03/18/2025 11:14 AM EST) Only the most recent of2 resultswithin the time period is included. Anatomical RegionLateralityModalityAMBUltrasound Narrative Authorizing ProviderResult TypeResult StatusNot In System Ref ProvIMG US ORDERABLESFinal Result * MR (03/17/2025 11:19 AM EST)Anatomical RegionLateralityModalityBodyN/A Magnetic Resonance Narrative Authorizing ProviderResult TypeResult StatusNot In System Ref ProvIMG MRI ORDERABLESFinal Result * US MFM COMPREHENSIVE ANATOMIC SURVEY (03/11/2025 11:56 AM EST)Anatomical RegionLateralityModalityOB-GYNUltrasoundSpecimen (Source)Anatomical Location / LateralityCollection Method / VolumeCollection TimeReceived Time03/11/2025 9:27 AM EST Narrative 03/11/2025 3:30 PM EST NAME: ??DESMOND GUTIERREZ : 1990 SEX: F Accession Number: [id number] ORDERING PHYSICIAN: MAMADOU TOSCANO REFERRING PHYSICIAN: MAMADOU TOSCANO Coding Procedures ? 92762: Ultrasound, uterus, real time with image documentation, and maternal evaluation ? plus detailed anatomic examination, transabdominal approach;single or first gestation. 2 ? 31285: Ultrasound, uterus, real time with image documentation, [...] weight 75 kg, 165 lb. BMI 31.89 kg/m??. Initial ? BMI 29.23 kg/m??. Weight gain 7 kg, 15 lb Method Transabdominal and transvaginal ultrasound examination. View: Suboptimal view: limited by position and activity. Medical Smooth Plater Smooth Plater declined Twin . Number of fetuses: 2. [...] (oz) ? 14 oz EFW by: ?Hadlock (VAW-WK-WU-FL) Extended Tibia ??31.1 mm 21w 3d 40% Bibiana Nurse Aide ? 10.4 mm CM ? 3.6 mm [...] (oz) ? 2 oz EFW by: ?Hadlock (MVX-JJ-KR-FL) Extended Tibia ??32.2 mm 21w 6d 57% Bibiana Nurse Aide ? 5.4 mm CM ? 6.0 mm [...] Face: Orbits. Heart/Thorax: 4-chamber view. 3-vessel view. 2-coyyop-qtuiklg view. Situs. Aortic arch view. Bicaval view. [...] Lips. Nose. Heart / Thorax 4-chamber view. 1-gjqbtu-tujylmn view. Situs. Aortic arch view. Cardiac rhythm. [...] 2.1 cm x 2.8 cm. Vol 5.2 cm?? Left Ovary ? Not visualized Cul de [...] Total discordance is 19.5% Recommendations Please see [facility] documentation from today. The patient is scheduled in four to six week(s) to complete anatomic survey. Subsequent follow up or other follow up as clinically determined by primary OB provider unless otherwise specified by MFM. Results forwarded to ordering provider so they can follow up with the patient as necessary. Procedure Note Tejinder Mccarthy MD - 03/11/2025 NAME: DESMOND GUTIERREZ : 1990 SEX: F Accession Number: [id number] ORDERING PHYSICIAN: MAMADOU TOSCANO REFERRING PHYSICIAN: MAMADOU TOSCANO Coding Procedures 72369: Ultrasound, uterus, real time with image documentation, and maternal evaluation plus detailed anatomic examination, transabdominalapproach;single or first gestation. 2 [address]1231: Ultrasound, uterus, real time with imagedocumentation, transvaginal [...] Initialweight 75 kg, 165 lb. BMI 31.89 kg/m??. Initial BMI 29.23 kg/m??. Weight gain 7 kg, 15 lb Method Transabdominal and transvaginal ultrasound examination. View: Suboptimalview: limited by position and activity. Medical Smooth Plater Smooth Plater declined Twin . Number of fetuses: 2. [...] EFW (oz) 14 oz EFW by: Hadlock (HLT-ER-JB-FL) Extended Tibia 31.1 mm 21w 3d 40% Bibiana Nurse Aide 10.4 mm CM 3.6 mm 5% Nicolaides [...] EFW (oz) 2 oz EFW by: Hadlock (KMD-ON-LR-FL) Extended Tibia 32.2 mm 21w 6d 57% Bibiana Nurse Aide 5.4 mm CM 6.0 mm 68% Nicolaides [...] Face: Orbits. Heart/Thorax: 4-chamber view. 3-vessel view. 1-gtkldz-upaexyd view. Situs.Aortic arch view. Bicaval view. Cardiac [...] Lips. Nose. Heart / Thorax 4-chamber view. 2-frafdu-ojclxvj view. Situs. Aortic archview. Cardiac rhythm. Abdomen [...] 2.1 cm x 2.8 cm. Vol 5.2 cm?? Left Ovary Not visualized Cul de Sac [...] Total discordance is 19.5% Recommendations Please see MFM documentation from today. The patient is scheduled in four to six week(s) to complete anatomicsurvey. Subsequent follow up or other follow up as clinically determined byprimary OB provider unless otherwise specified by M. Results forwarded to ordering provider so they can follow up with thepatient as necessary. Authorizing ProviderResult TypeResult StatusCorey Megan [facility] ORDER[place]LES Final Result * Free Cell DNA (Non-[facility] Send Out) [...] immune IgGIMMUNEMANUALLY TRANSCRIBED RESULTSSpecimen (Source)Anatomical Location / Laterality Collection [...] diff (01/28/2025)ComponentValueRef RangeTest MethodAnalysis Time Performed AtPathologist VfmvmzmldCcrvuzhqfl14.7MANUALLY TRANSCRIBED RESULTS Votruxtkbs70.6MANUALLY TRANSCRIBED RESULTSRbc Mcv (Fl) By Automated Count93 MANUALLY TRANSCRIBED IARGQGDUuiyynzgr556KSQOVLHM TRANSCRIBED RESULTSSpecimen (Source)Anatomical Location / LateralityCollection Method [...] TimePerformed AtPathologist SignatureHPV 16NegativeNegative 10/02/2024 2:06 PM [facility] LAB[facility]ATORYHPV 18Negative Oajzefac23/28/2025 2:06 PM [facility] LABORATORYOTHER HIGH RISK QPWBnuzlqiwAxzfbiju39/28/2025 2:06 PM [facility] LABORATORYComment:HPV types 31, 33, 35, 39, 45, 52, 56, 58, 59, 66, and 68 DNA were undetectable.Specimen (Source)Anatomical Location / LateralityCollection Method / VolumeCollection TimeReceived TimeThinPrep cytology technique (qualifier value)Cervix uteri structure / Aebizoq8010/01/2024 1:50 PM EDT 10/02/2024 3:04 AM EDT Narrative Authorizing ProviderResult TypeResult StatusIvory Du SPECIAL WARFARE OPERATOR-CNMLAB BLOOD ORDERABLESFinal ResultPerforming OrganizationAddressCity/State/ZIP CodePhone Number [facility] [address] [place] [address], from Last 3 Months or Most Recently Relevant to Health Maintenance Insurance Advance Directives * Full Code (Latest Code Status on File) Date ActivatedDate CmqnvakzxlzZqupganm54/19/2024 10:52 PM03/28/2024 11:13 PM * Full Code Date ActivatedDate InactivatedComments12/08/2017 8:05 AM12/10/2017 9:50 AM * Full Code Date ActivatedDate InactivatedComments12/01/2017 8:08 AM12/02/2017 12:35 PM Care Teams Team MemberRelationshipSpecialtyStart DateEnd Date Rebecca Rizvi APRN-JEYSON [address] [place] [address] PCP - GeneralNurse Practitioner08/23/22
--- OUTSIDE RECORDS SUMMARY | 2025-04-10 12:52 | XMS_ITS | Patient Health Record ---
Author Organization [facility] Address [address] [place] [address] Care Team Providers Care Radiator Specialist Name Role Phone Dr. Howard Arriaga Primary Care Provider [phone] Erin Guallpa [phone] Reason For Referral No Information Encounters Encounter Location Date Provider Diagnosis [facility] [address] [place] [id number] 03/14/2025 Erin Wheeler Acute gingivitis, plaque induced K05.00 ; Other dental procedure status Z98.818 and Encounter for dental examination and cleaning with abnormal findings Z01.21 [facility] [address] [place] [id number] 08/22/2024 Erin Wheeler Acute gingivitis, plaque induced K05.00 Assessments Encounter Date Diagnosis (ICD Code) Assessment Notes Treatment Notes Treatment Clinical Notes Section Notes 08/22/2024 Acute gingivitis, plaque induced (ICD-10 - K05.00) 03/14/2025ute gingivitis, plaque induced (ICD-10 - K05.00)03/14/2025Other dental procedure status (ICD-10 - Z98.818)03/14/2025Encounter for dental examination and cleaning with abnormal findings (ICD-10 - Z01.21) Plan Of Treatment Next Appt Details Provider Name:Erin Wheeler , 09/26/2025 11:15:00 AM, [address] [place], [address], Insurance Providers Payer Name Payer Address Payer Phone Subscriber Number Group Number Insured Name Patient Relationship to Insured Coverage Start Date Coverage End Date Dental [employer] [place] Medicaid [address] [address] [place] [address] [id number] BRENDA LOGAN Self - patient is the insured Dental Wrap [facility] [address] [place] [id number] LOGANlf - patient is the [id number] 2024
--- OUTSIDE RECORDS SUMMARY | 2025-04-10 12:52 | XMS_ITS | Encounter Summary ---
Author Organization [facility] Address [address] [place] [address] Care Team Providers Care Media Reporter Name Role Phone Rebecca Rizvi MD Primary Care Provider [phone] Encounter Details DateTypeDepartmentCare Team (Latest Contact Info)Earidcqjuhn35/02/2025Telephone [facility] [address] [address] Evelyn Kee LPN Social History Tobacco UseTypesPacks/DayYears UsedDateSmoking Tobacco: Never Assessed Estimated Date of JhkmddtxCukuttarKsb16/11/2026Based on UltrasoundSex and Gender InformationValueDate RecordedSex Assigned at BirthNot on fileLegal SexFemale 07/20/2022 6:43 PM EDTGender IdentityNot on fileSexual OrientationNot on file documented as of this encounter Miscellaneous Notes * Telephone Encounter - Evelyn Kee LPN - 04/08/2025 3:53 PM EST 1:21 pm Patient called and voiced that she had a question in regard to glucose test and request call back. 3:57pm Called patient and patient voiced that she always did the testing at her Midwives office with previous pregnancies & wanted to know the protocol for our office. Informed patient that she is either able to have labs drawn at [facility] and obtain drink from lab prior to registering, so that way she has plenty of time to register within that hour. Or advised patient she is able to call [facility] prior to testing and pre-register. PVU--ss documented in this encounter Plan of Treatment DateTypeDepartmentCare Team (Latest Contact Info)Teosntnatoy48/04/2025 1:30 PM ESTRoutine [facility] [address] [place] [address] Janett Zheng PA [address] [place] [address] documented as of this encounter Visit Diagnoses Not on filedocumented in this encounter Care Teams Team MemberRelationshipSpecialtyStart DateEnd Date Rebecca Rizvi MD [address] [place] [phone] PCP - GeneralFamily Medicine01/03/25documented as of this encounter
[2025-04-10 13:50] LABS: Hematocrit 34.9 % (36.0-48.0); Hemoglobin 11.6 g/dL (12.0-16.0); Immature Granulocytes Abs Auto 0.19 10^3/uL (0.00-0.03); Immature Granulocytes Pct Auto 2.1 % (0.0-0.5); Lymphocytes Absolute Auto 1.7 10^3/uL (1.2-3.8); Mean Corpuscular HGB Conc 33.2 g/dL (29.9-35.2); Mean Corpuscular Hemoglobin 29.9 pg (26.7-34.0); Mean Corpuscular Volume 89.9 fL (81.0-99.0); Platelet Count 241 10^3/uL (150-450); Red Blood Count 3.88 10^6/uL (4.20-5.40); White Blood Count 8.9 10^3/uL (4.0-11.0)
[2025-04-10 13:54] LABS: Glucose 1 Hour 103 mg/dL (<130)
== END 2025-04-10 12:47 | disposition home or self-care (01) ==
LOC: LAB 12:47
PROVIDERS: PCP Nurse Practitioner Family; Visit Provider Obstetrics & Gynecology
DX: Z13.1 Encounter for screening for diabetes mellitus (principal)
CPT/HCPCS: 36415; 82950; 85025

== ENCOUNTER 2025-04-26 15:01 | Outpatient (OUT) | payer MEDICAID, SELFPAY ==
--- OUTSIDE RECORDS SUMMARY | 2025-04-14 09:00 | XMS_ITS | Encounter Summary ---
Author Organization [facility] tem Address [id number] [address] 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 Twin following selective reduction, antepartum Procedures US MFM with or without consult Charlene Lees MD [address] [address] Phone: tel: fax: Maternal- Medicine at [facility] [address] [place] [address] Phone: tel: fax: Referral IDStatusReasonStart DateExpiration DateVisits RequestedVisits [id number] Reason for Visit * ReasonCommentsdi di twinreduction twin A Encounter Details DateTypeDepartmentCare Team (Latest Contact Info)Utomxxdokjm94/08/2025 9:00 AM ESTOffice Visit Maternal Medicine [facility] [place] [address] Charlene Lees MD [address] [facility] [address] [place] [address] 26 weeks gestation of (Primary Dx); Twin following selective reduction, antepartum; Dichorionic diamniotic twin in second trimester; 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 Social History Tobacco UseTypesPacks/DayYears UsedDateSmoking Tobacco: FormerCigarettes0.58.1 Started: 04/05/2017Smokeless Tobacco: NeverAlcohol UseStandard Drinks/Week CommentsNot Currently3 (1 standard drink = 0.6 oz pure alcohol)occasionalAHC UtilitiesAnswerDate RecordedIn the past 12 months has the [employer], gas, oil, or water [employer] threatened to shut off services in your home?No03/28/2024Overall Financial Resource Strain (CARDIA)AnswerDate RecordedHow hard is it for you to pay for the very basics like food, housing, medical care, and heating?Not hard at all05/07/2024HQ-2AnswerDate RecordedTotal Gyrmu008PRAPARE - TransportationAnswerDate RecordedIn the past 12 months, has lack of transportation kept you from medical appointments or from getting medications?No 03/28/2024In the past 12 months, has lack of transportation kept you from meetings, work, or from getting things needed for daily living?No03/28/2024 [place] Depression ScaleAnswerDate RecordedEdinburgh Depression Scale Mcyfc819The thought of harming myself has occurred to [...] of a household?No03/28/2024hildcare AnswerDate RecordedDo problems getting child abuse worker make it difficult for you to work or study?No05/07/2024EmploymentAnswerDate RecordedEmploymentUnknown 10/15/2018Hunger ScreeningAnswerDate RecordedWithin the past 12 months we worried whether our food would run out before we got money to buy more.Never True03/11/2025Within the past 12 months the food we bought just didn't last and we didn't have money to get more.Never True03/11/2025Purpose - LifeAnswerDate RecordedPurpose and direction in oswwQofyyjr20/10/2021Estimated Date of DkocvnztDoennqecBdb78/11/2026Based on UltrasoundSex and Gender InformationValue Date RecordedSex Assigned at PmuwpYbjayu95/02/2022 7:15 PM EDTLegal SexFemale 12/09/2014 2:44 PM EDTGender IpgujtgcXxihvp35/02/2022 7:15 PM EDTSexual VhivsxbyvtpQnjrkseq44/02/2022 7:15 PM EDTdocumented as of this encounter Last Filed Vital Signs Vital SignReadingTime TakenCommentsBlood Opmbmcgs722 9:04 AM EST Pbmyg7060 9:04 AM ESTTemperature--Respiratory Rate--Oxygen Saturation-- Inhaled Oxygen Concentration--Giocpx82.9 kg (185 lb)04/14/2025 9:04 AM ESTHeight --Body Mass Index32.7803/11/2025 9:42 AM ESTdocumented in this encounter Functional Status * BPAnswerDate of DvqztcqmcbHbsdtx673/7012/08/2025 9:04 AM Ashley Watson RN * PulseAnswerDate of ZxtcyttwdaQxknkr0782/08/2025 9:04 AM Ashley Watson RN * WeightAnswerDate of QgjbcsyxlgQckmlv246440/08/2025 9:04 AM Ashley Watson RN * BPAnswerDate of ChqeodsiewZmetwt050/7012/08/2025 9:04 AM Ashley Watson RN * PulseAnswerDate of LxlznwcufcSuzodn8533/08/2025 9:04 AM Ashley Watson RN * WeightAnswerDate of YwczyszctyRvosxp411387/08/2025 9:04 AM Ashley Watson RN documented as of this encounter Mental Status * BPAnswerEntry LskzDhbssa646/7004/14/2025 9:04 AM Ashley Watson RN * PulseAnswerEntry YmrsFeohra1903/08/2025 9:04 AM Ashley Watson RN documented in this encounter Progress Notes * Ashley Harry RN - 04/14/2025 9:00 AM EST Headache/epigastric pain/blurry vision/swelling? Headaches, similar to previous Cramping/contractions? no Spotting or vaginal bleeding? no Loss or gush of fluid like your water may have broken? no Recent ER visits or hospitalizations? Reduction of twin A 2 wks ago at [place] Any concerns that you would like me to mention to the provider today? no * Charlene Lees MD - 04/14/2025 9:00 AM EST REASON FOR OFFICE VISIT: follow up HISTORY OF PRESENT ILLNESS: Ese Badillo is a pleasant 34 y.o. G4P 3-0 0 3. at 26w5d due on Estimated Date of Delivery: 07/16/25 . Patient was seen today due to the following s/[facility] - genetic amniocentesis of Twin A results pending Spontaneously conceiving dichorionic diamniotic twin gestation. 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 Other anomalies due to spina bifida included -mild dilation of the lateral ventricles -dilation of the 3rd ventricle - Chiari malformation -obliteration of the posterior fossa -bilateral clubfeet suggestive of high lesion The family also underwent a consultation at the [facility] therapy Center Rh negative sp rhogam 03/25/25 Advanced maternal age with low risk cell free DNA testing. Both parents carrier for galactosemia. One of the daughters does have galactosemia trait and has required nutritional support. Patient was established with [facility] metabolic disorder howeverthe physician has retired. Patient has seen genetic counselor. Please see their note separately. 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 Will continue Valtrex through the History of LEEP procedure with normal transvaginal cervical length. Remote history of IV drug use followed by positive hepatitis-C which is now treated. Hepatitis-C antibody positive with nondetectable load. Patient has been completely treated Currently the patient has no complaints. The patient denies nausea, vomiting, abdominal pain, vaginal bleeding, SOB or chest pain. Reports good movement. Patient's PMH/PSH,SH,PSYCH Hx, MEDs, ALLERGIES, and ROS were all reviewed and updated in the appropriate sections. 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 They have a fxmh-meib-rhx daughter that has a mild form (Clemens variant) of galactosemia diagnosed via screening with minimal need for treatment and management. Ese has a healthy 17-year-old daughter with a different partner. Rancho has two healthy chil Chlamydia 2010 Elevated liver enzymes Fatigue Headache 09/06/2022 Hepatitis C Hepatitis C 04/25/2017 History of hepatitis C 04/25/2017 treated 04/2020 with [facility] (Dr. Daniel) 09/07/22 viral load undetectable 09/05/23 viral load undetected History of heroin abuse ([facility]) 03/17/2024 03/17/2024: Patient states she has been clean since 2011. History of loop electrical excision procedure (LEEP) 08/23/2023 LEEP 2016 Cervical lengths to start at 16 weeks until 24 weeks. HSV infection oral cold sores Intermittent explosive disorder 12/21/2022 Migraine Mood disorder PTSD (post-traumatic stress disorder) PAST OBSTETRICAL HISTORY: OB History Para Term AB Living 4 3 3 0 0 3 SAB IAB Ectopic Multiple Live Births 0 0 0 0 3 # Outcome Date GA Lbr Joesph/2nd Weight Sex Type Anes PTL Lv 4 Current 3 Term 03/27/24 40w4d / 01:15 4.075 kg F Vag-Spont EPI N MARTHA Complications: Thin meconium stained amniotic fluid 2 Term 12/09/17 40w4d / 00:22 3.396 kg F Vag-Spont EPI, IV analgesia N MARTHA 1 Term 09/25/06 3.147 kg F Vag-Spont EPI MARTHA SURGICAL HISTORY: Past Surgical History: Procedure Laterality Date CERVICAL BIOPSY W/ LOOP ELECTRODE EXCISION 05/03/16 COLPOSCOPY LEEP CERVIX N/A 05/03/2016 Performed by Kim Bhatia MD at [facility] SURGERY WISDOM TOOTH EXTRACTION ALLERGIES: No Known Allergies CURRENT MEDICATIONS: Current Outpatient Medications: Bacillus coagulans (BACID WITH LACTOSPORE) 1 billion cell capsule, Take 1 capsule by mouth in the morning., Disp: 90 capsule, Rfl: 0 biotin (BIOTIN) 5 mg capsule, Take 1 capsule (5 mg total) by mouth in the morning., Disp: 90 capsule, Rfl: 3 cholecalciferol, vitamin D3, (VITAMIN D3) 2,000 units tablet, Take 1 tablet (2,000 Units total) by mouth in the morning., Disp: 90 each, Rfl: 3 cyanocobalamin (vitamin B-12) 1000 MCG tablet, Take 1 tablet (1,000 mcg total) by mouth in the morning., Disp: 90 tablet, Rfl: 3 docusate sodium (COLACE) 100 mg capsule, TAKE 1 CAPSULE BY MOUTH DAILY NEEDED FOR CONSTIPATION, Disp: 30 capsule, Rfl: 2 drospirenone, contraceptive, 4 mg (28) tablet, Take 4 mg by mouth in the morning., Disp: 28 tablet,Rfl: 12 etonogestreL-ethinyl estradioL (NUVARING) 0.12-0.015 mg/24 hr vaginal ring, Insert 1 each into the vagina every 21 days. Insert vaginally and leave in place for 3 consecutive weeks, then remove for 1week., Disp: 1 each, Rfl: 11 famotidine (PEPCID) 20 mg tablet, TAKE 1 TABLET BY MOUTH EVERY MORNING, Disp: 30 tablet, Rfl: 6 LHEG-tpqcglwg-shiksnmmswx xt 100-100-225 mg capsule, Take 1 capsule by mouth in the morning., Disp:90 capsule, Rfl: 1 magnesium oxide (MAGOX) 400 mg tablet, Take 1 tablet (400 mg total) by mouth before bedtime., Disp:90 tablet, Rfl: 1 omega-3 acid ethyl esters (LOVAZA) 1 gram capsule, TAKE 2 CAPSULES BY MOUTH EVERY MORNING AND TAKE TWO CAPSULES BY MOUTH AT BEDTIME (Patient not taking: Reported on 03/11/2025), Disp: 120 capsule, Rfl: 0 omeprazole (PriLOSEC) 40 mg capsule, Take 1 capsule (40 mg total) by mouth in the morning. (Patientnot taking: Reported on 03/11/2025), Disp: 30 capsule, Rfl: 6 898-uhso-tmxtho 6-dha 27 mg iron-1 mg -205 mg capsule, Take 1 each by mouth in the morning., Disp: 90 capsule, Rfl: 4 valACYclovir (VALTREX) 1000 mg tablet, Take 1 tablet (1,000 mg total) by mouth in the morning and 1tablet (1,000 mg total) before bedtime., Disp: 30 tablet, Rfl: 4 FAMILY/GENETIC HISTORY: No family history of VTE, cardiac defects and mental retardation . RECENT HOSPITALIZATION: none I did review all the labs results available in addition to labs which were ordered by the primary care physician, and the other consultants, we search on [facility] and all the available care everywhere epic I did review all the imaging studies of the patient available on EMR, ordered by the primary care physician and the other school plant consultant HABITS: Patient activity no restrictions, diet no restrictions REVIEW OF SYSTEM: Head and Neck: Negative for any dizziness and headaches. Cardiovascular and Respiratory System: Denies any chest pain, shortness of breath, and coughing. Abdominal and System: Denies any abdominal pain, nausea, vomiting, vaginal bleeding, and vaginal discharge PHYSICAL EXAMINATION: There were no vitals taken for this visit. . Gravid abdomen, Respirations notlabored. Well oriented time place person, normal gait [facility] 04/14/25 Dichorionic-diamniotic twin consistent with 26w 5d with an LUCIO of 07/16/2025. Twin A is lower. Known demise, selective reduction due to anomalies. 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 Intrauterine with normal growth. EFW mesures at the 63%, AC measures at the 69%. anatomic survey did not reveal sonographic evidence of any gross structural abnormalities. Amniotic fluid MVP measures 5.5 cm. MEDICAL DECISION MAKING DISCUSSION: Counseling: Ultrasound discussed with the patient today. Twin A demise. Twin B is growing well estimated weight at the 63rd percentile normal amniotic fluid and the anatomic survey is complete. Genetic amniocentesis results for twin A are still in process and results were pending from the [facility] Twin B has a 1 in 4 chance for galactosemia (status post genetic consultation; patient has a classic galactosemia variant and her partner has the Clemens variant), the family desire evaluation. Case to be presented to multidisciplinary meeting with the NICU to finalize location of delivery. I would recommend serial growth ultrasounds and surveillance. Education given on signs and symptoms of labor and precautions given. Education also provided on kick counts. Reviewed that Ashwagandha supplementation is generally not recommended during . She has not been taking it. Recommendations - Growth ultrasounds q.4 weeks through [facility] - Weekly NST and DVP starting at 28 weeks increase NST to twice weekly at 32 weeks through primary OB office - Term delivery anticipated at 39 weeks however timing and location of delivery to be further finalize pending clinical course - case to be presented to multidisciplinary meeting with the NICU - the patient is Rh negative please follow ACOG guidelines for RhoGAM administration DISPOSITION: At this point the patient is in complete care of her mail list processor. Patient does have multiple ultrasounds and office visit scheduled with us Thank you for allowing me to participate in Ese Badillo . If there any questions please do not hesitate to contact us. Sincerely, Charlene Lees MD, FACOG (she/hers) Maternal- Medicine [facility] [address] [facility] 1[address] [place] [address] documented in this encounter Plan of Treatment DateTypeDepartmentCare Team (Latest Contact Info)Bqockktjxfa91/08/2026 8:30 AM ESTAppointment [facility] [address] [place] [address] 05/15/2025 11:00 AM ESTOffice Visit Maternal- Medicine at [facility] [address] [place] [address] Charlene Lees MD [address] [facility], [address] [place] [address] 11/04/2025 4:00 PM EDTOffice Visit [facility] [address] [place] [phone] Rebecca Rizvi APRN-CNP [address] [place] [phone] NameTypePriorityAssociated DiagnosesOrder ScheduleUS [facility] with or without consult ImagingRoutine Dichorionic diamniotic twin in second trimester 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 Twin following selective reduction, antepartum Expected: 04/14/2026 (Approximate), Expires: 07/13/2026documented as of this encounter Visit Diagnoses Diagnosis 26 weeks gestation of - Primary Twin following selective reduction, antepartum Dichorionic diamniotic twin in second trimester 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
--- OUTSIDE RECORDS SUMMARY | 2025-04-23 13:40 | XMS_ITS | Encounter Summary ---
Author Organization [facility] Address [address] [place] [address] Care Team Providers Care Director Export Name Role Phone Rebecca Rizvi MD Primary Care Provider Reason for Visit * ReasonCommentsRoutine Visit Encounter Details DateTypeDepartmentCare Team (Latest Contact Info)Dggpqpbfwaa95/17/2025 1:40 PM ESTRoutine [facility] [address] [place] [address] Rene Hayden DO [address] [facility] [place] [address] Third trimester ([facility]); 28 weeks gestation of ([facility]); Multigravida of advanced maternal age in second trimester ([facility]); Twin following selective reduction, antepartum ([facility]) Social History Tobacco UseTypesPacks/DayYears UsedDateSmoking Tobacco: Never Assessed Estimated Date of VjwtizftQbwvrljvFda69/11/2026Based on UltrasoundSex and Gender InformationValueDate RecordedSex Assigned at BirthNot on fileLegal SexFemale 07/20/2022 6:43 PM EDTGender IdentityNot on fileSexual OrientationNot on file documented as of this encounter Last Filed Vital Signs Vital SignReadingTime TakenCommentsBlood Nvucpjne762/7004/23/2025 1:54 PM EST Pulse--Temperature--Respiratory Rate--Oxygen Saturation--Inhaled Oxygen Concentration--Mrvjxp55.9 kg (185 lb)04/23/2025 1:54 PM ESTHeight--Body Mass Index--documented in this encounter Progress Notes * Malena Betts, FENCE INSTALLER - 04/23/2025 1:40 PM EST Reason for [...] age in second trimester ([facility]) 03/13/2025 H/O LEEP 03/13/2025 HSV (herpes simplex virus) infection 03/13/2025 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 Exam conducted with a chain forming machine operator present. Vitals: There is no height or weight on file to calculate BMI. BP: 110/70 No LMP recorded. Patient is . Assessment/Plan ICD-10-CM 1. Third trimester ([facility]) Z34.93 2. 28 weeks gestation of ([facility]) Z3A.28 POCT urinalysis dipstick manually resulted 3. Multigravida of advanced maternal age in second trimester ([facility]) O09.522 4. Twin following selective reduction, antepartum ([facility]) O30.009 O31.30X0 Assessment/Plan Return OB: Patient presents [...] Plan of Treatment DateTypeDepartmentCare Team (Latest Contact Info)Lmyblksjqtb91/31/2025 10:20 AM ESTRoutine [facility] [address] [place] [address] Jaylin Chung NP [address] [facility] [place] [phone] 05/21/2025 3:50 PM ESTRoutine [facility] [address] [place] [address] Rene Hayden, [address] [place] [address] documented as of this encounter Procedures Procedure NamePriorityDate/TimeAssociated DiagnosisCommentsPOCT URINALYSIS NDTDCQYAVaahnsx61/17/2025 2:02 PM EST 28 weeks gestation of ([facility]) documented in this encounter Results * [...] / LateralityCollection Method / VolumeCollection Time Received OrjqIvavb23/17/2025 2:02 PM EST Narrative Authorizing ProviderResult TypeResult StatusCorey Jackelyn DOPOINT OF CARE TEST ENTER/EDIT ORDERABLESFinal Result documented in this encounter Visit Diagnoses Diagnosis Third trimester ([facility]) state, incidental 28 weeks gestation of ([facility]) Multigravida of advanced maternal age in second trimester ([facility]) Twin following selective reduction, antepartum ([facility]) documented in this encounter Care Teams Team MemberRelationshipSpecialtyStart DateEnd Date Rebecca Rizvi MD [address] [place] [phone] PCP - GeneralFamily Medicine01/03/25documented as of this encounter
--- OUTSIDE RECORDS SUMMARY | 2025-04-26 15:06 | XMS_ITS | Encounter Summary ---
Author Organization [facility] Address [address] [place] [address] Care Team Providers Care Study Abroad Coordinator Name Role Phone Rebecca Rizvi MD Primary Care Provider [phone] Encounter Details DateTypeDepartmentCare Team (Latest Contact Info)Hvddouuqixh70/10/2025Telephone [facility] [address] [employer] [address] [place] [phone] Sosa Funes MA [address] [place] [address] Social History Tobacco UseTypesPacks/DayYears UsedDateSmoking Tobacco: Never Assessed Estimated Date of IajqoabqNorcedwrTiq49/11/2026Based on UltrasoundSex and Gender InformationValueDate RecordedSex Assigned at BirthNot on fileLegal SexFemale 07/20/2022 6:43 PM EDTGender IdentityNot on fileSexual OrientationNot on file documented as of this encounter Miscellaneous Notes * Telephone Encounter - Sosa Funes MA - 04/16/2025 1:46 PM EST Patient called to let our office know that she has ALREADY received her Rhogam injection. Pt statedshe had it done on 03/25/2025 IM on the right glutea. And it was administered by Dr. Obinna Chaves at the [facility] medicine. Pt was irritated that NOT everyone was notified of this and she advised the nurse at her last visit. Pt was advised that event that she got it on 03/25/2025 you still need the injection at 28 weeks prior to your delivery due to being NEGATIVE blood type for safety of the baby. Pt states she had that done w/her first (3 times) during her pregnancyand will not go through it again. She already got it. I advised the patient that not everyone gets the information at the same time. The hospital staff called because its their job to contact and schedule our OB patients for the Rhogam injection. Pt stated she will call the hospital and cancel the appointment she was given for the Rhogam injection shewill not be going. documented in this encounter Plan of Treatment DateTypeDepartmentCare Team (Latest Contact Info)Suqzwytuaug17/31/2025 10:20 AM ESTRoutine [facility] [address] [phone] Jaylin Chung, NATHANIEL [address] [place] [phone] 05/21/2025 3:50 PM ESTRoutine [facility] [address] [address] Rene Hayden DO [address] [place], [place] [phone] documented as of this encounter Visit Diagnoses Diagnosis Heartburn during in second trimester ([facility] documented in this encounter Care Teams Team MemberRelationshipSpecialtyStart DateEnd Date Rebecca Rizvi MD [facility] [place] [address] PCP - GeneralFamily Medicine01/03/25documented as of this encounter
--- OUTSIDE RECORDS SUMMARY | 2025-04-26 15:06 | XMS_ITS | Encounter Summary ---
Author Organization [facility] Address [id number] [address] [place] [address] Care Team Providers Care Seed Core Operator Name Role Phone Rebecca Rizvi BLANCA-HUMAN SERVICE TECHNICIAN Primary Care Provider Encounter Details DateTypeDepartmentCare Team (Latest Contact Info)Clkpmwrghmw72/08/2025Travel Social History Tobacco UseTypesPacks/DayYears UsedDateSmoking Tobacco: FormerCigarettes0.58.1 Started: 04/05/2017Smokeless Tobacco: NeverAlcohol UseStandard Drinks/Week CommentsNot Currently3 (1 standard drink = 0.6 oz pure alcohol)occasionalAHC UtilitiesAnswerDate RecordedIn the past 12 months has the electric, gas, oil, or water [employer] threatened to shut off services in your home?No03/28/2024Overall Financial Resource Strain (CARDIA)AnswerDate RecordedHow hard is it for you to pay for the very basics like food, housing, medical care, and heating?Not hard at all05/07/2024HQ-2AnswerDate RecordedTotal Qzolb718PRAPARE - TransportationAnswerDate RecordedIn the past 12 months, has lack of transportation kept you from medical appointments or from getting medications?No 03/28/2024In the past 12 months, has lack of transportation kept you from meetings, work, or from getting things needed for daily living?No03/28/2024 [place] Depression ScaleAnswerDate RecordedEdinburgh Depression Scale Feksl537The thought of harming myself has occurred to [...] of a household?No03/28/2024hildcare AnswerDate RecordedDo problems getting exceptional children teacher make it difficult for you to work or study?No05/07/2024EmploymentAnswerDate RecordedEmploymentUnknown 10/15/2018Hunger ScreeningAnswerDate RecordedWithin the past 12 months we worried whether our food would run out before we got money to buy more.Never True03/11/2025Within the past 12 months the food we bought just didn't last and we didn't have money to get more.Never True03/11/2025Purpose - LifeAnswerDate RecordedPurpose and direction in ybzzNsocjpb68/10/2021Estimated Date of JxbxfekxKfoosqnbSkc98/11/2026Based on UltrasoundSex and Gender InformationValue Date RecordedSex Assigned at HbxeoAhhlis72/02/2022 7:15 PM EDTLegal SexFemale 12/09/2014 2:44 PM EDTGender NbbfnhggZdtmiz27/02/2022 7:15 PM EDTSexual EldqmwpwppkVykydhoj87/02/2022 7:15 PM EDTdocumented as of this encounter Plan of Treatment DateTypeDepartmentCare Team (Latest Contact Info)Ervhpofeuvg27/08/2026 8:30 AM ESTAppointment [facility] [address] [place] [phone] 05/15/2025 11:00 AM ESTOffice Visit [facility]aternal- [facility] at [facility] [address] [place] [phone] Charlene Lees MD [address], [address] [place] [address] 11/04/2025 4:00 PM EDTOffice Visit [facility] [address] [place] [phone] Rebecca Rizvi APRN-CNP [address] [place] [phone] documented as of this encounter Visit Diagnoses Not on filedocumented in this encounter Additional Health Concerns AssessmentNoted TimePHQ-9 Depression Total Score: 3:04 PM EDTA Body Mass Index follow-up plan has been documented for the kbtlxnx5209/11/2018 4:32 PM EDTdocumented as of this encounter Care Teams Team MemberRelationshipSpecialtyStart DateEnd Date Rebecca Rizvi APRN-CNP [address] [place] [phone] PCP - GeneralNurse Practitioner08/23/22documented as of this encounter
--- OUTSIDE RECORDS SUMMARY | 2025-04-26 15:06 | XMS_ITS | Clinical Summary ---
Author Organization [employer] tem Address [id number] [address] [place] [address] Care Team Providers Care Security Messenger Name Role Phone Rebecca Rizvi BLANCA-EXECUTIVE SALES ASSISTANT Primary Care Provider Allergies No known active allergies Medications * This document contains information received from the source organization and may not represent a complete record from that organization. MedicationSigDispense QuantityRefillsLast FilledStart DateEnd DateStatus omeprazole (PriLOSEC) 40 mg capsule Indications:Heart burnTake 1 capsule (40 mg total) by mouth in the morning. 30 capsule 6001/02/2024ctive Additional Information Patient not taking.Reported on 04/14/2025 794-rwjd-zljtiz 6-dha 27 mg iron-1 mg -205 mg [...] mg total) before bedtime. 30 tablet 4055Active Additional Information Patient taking differently:1,000 mg oral 2 times daily, Morning, Bedtime,PRN, Reported on 04/14/2025 etonogestreL-ethinyl estradioL (NUVARING) 0.12-0.015 mg/24 hr vaginal ring Indications:Encounter for initial prescription of vaginal ring hormonal contraceptiveInsert 1 each into the vagina every 21 days. Insert vaginally and leave in place for 3 consecutive weeks, then remove for 1 week. 1 each 5Active Bacillus coagulans (BACID WITH LACTOSPORE) 1 billion cell capsule Take 1 capsule by mouth in the morning. 90 capsule 5Active Additional Information Patient not taking.Reported on 04/14/2025 magnesium oxide (MAGOX) 400 mg tablet Take 1 tablet (400 mg total) by mouth before bedtime. 90 tablet 5Active Additional Information Patient taking differently:1 tablet oral Daily, Bedtime,Occasionally, Reported on 04/14/2025 YIYR-bjiryrgl-jjeuikmorjn xt 100-100-225 mg capsule Take 1 capsule by mouth in the morning. 90 capsule 5Active Additional Information Patient not taking.Reported on 04/14/2025 cholecalciferol, vitamin D3, (VITAMIN D3) 2,000 units tablet Indications:Vitamin D deficiencyTake 1 tablet (2,000 Units total) by mouth in the morning. 90 each 5Active cyanocobalamin (vitamin B-12) 1000 MCG tablet Take 1 tablet (1,000 mcg total) by mouth in the morning. 90 tablet 5Active biotin (BIOTIN) 5 mg capsule Indications:Hair lossTake 1 capsule (5 mg total) by mouth in the morning. 90 capsule 5Active Additional Information Patient not taking.Reported on 04/14/2025 famotidine (PEPCID) 20 mg tablet Indications:Heart burnTAKE 1 TABLET BY MOUTH EVERY MORNING 30 tablet 5Active Active Problems Patient Care Coordination No te Formatting of this note migh t be different from the original. 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, Dandy Walker Malformation, Possible clubbed feet Twin B - WNL Referring OB: Jackelyn BRANDTM: Fabio Maternal Hx: MOB and FOB carriers for Galactosemia AMA MSAFP: cfDNA: Dizigotic XY XY Low risk Carrier: Amnio: []Genetic Counselling: []Peds Cardiology: []Peds Urology: []Peds Ortho: []Peds Surgery: []Peds Neurology: [x]Peds Neurosurgery: [facility] 03/18/25 Pediatric neurosurgical consultation has been sought [...] Consult: []Palliative Care Consult: []SGM: []Life Connection: [x][place]: 03/17 and 03/18 [x] MRI & US [...] especially early delivery (Christopher 2022, Mackenzie 2022, Zemet 2020). I specifically discussed that, ideally, we would seek to reduce the as soon as possible, based on data demonstrating a higher risk of cotwin loss and delivery among individuals undergoing selective reduction above 20 weeks, though some data demonstrate a signal between 16-18 weeks []UH: []JESSICA CHS: Delivery Recommendation: [] Term at local hospital [] Term at [facility] Surveillance Plan: [] Survey at __ weeks [] Growth q __ weeks [] Dopplers q __ weeks [] Echo at __ weeks [] Cervical length q __ weeks [] TTTS q __ weeks [] Wkly NST/PAMELA starting at __ weeks [] 2x/wk NST/PAMELA starting at __ weeks ProblemNoted DateDiagnosed DateAMA (advanced maternal age) multigravida 35+, second xdqrtaqip10/04/2025nemia affecting in third trimester 01/05/2024 Overview (01/23/2024): 01/15: IV iron 01/22: IV iron Vitamin D hjnrzassgv61/03/2023Estimated Date of DeliveryCommentsYes 07/16/2025ased on Ultrasound Resolved Problems ProblemNoted DateDiagnosed DateResolved DateNSVD (normal spontaneous vaginal delivery)/2242Aztayrplj43Normal labor03/26/20249 weeks gestation of juaeqtafe82bdominal pressure Irregular uterine qordcfnbqlde50History of heroin abuse Overview (03/17/2024): 03/17/2024: Patient states she has been clean since 2011. Dirwozif99 Overview (11/14/2023): Bleeding after intercourse - 10-31-23 spec exam done. Bleeding is coming from metaplasia of cervix. Thick/closed [id number] = GC and CT negative Hx of LEEP - 2016 - 1 full term baby after Cervical lengths 24 = 3.47 - = 3.59 RECOMMENDATION: 1. Follow-up in 4 [...] MFM consult: Rh negative state in antepartum xzzuob38/HSV infection Overview (10/31/2023): 09-05-23 genital lesion cultured- + HSV2 States gets oral lesions Discussed genital HSV and need for prophylaxis at 34 weeks. 10-31-23 - c/o HSV oral break out. Placed on treatment and then prophylaxis Marijuana use Overview (09/05/2023): 08/23/23 Initial UDS (+) THC Discussed to stop due to effects on growth and brain development 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 lxayflnrwnqn82 Overview (03/26/2024): FOB is carrier as well Genetic counselor 12/01/23: Of significance, this is Ese and Rancho's second together. They have a lzac-ztvb-ngo daughter that has a mild form (Clemens [...] 25%. We reviewed all children born in [place] are screened for galactosemia via screening (NBS) after . 1. Amniocentesis discussed and declined. 2. Continue to monitor the via ultrasound. 3. Patient diagnoses: galactosemia carriers, family history of galactosemia and muscular dystrophy History of loop electrical excision procedure (LEEP) Overview (09/05/2023): LEEP 2016 Cervical lengths to start at 16 weeks until 24 weeks. Intermittent explosive kpgygtbt59ipolar /23/2023 10/01/20245170Syeshlal41History of drug abuse09/06/2022EczemaVitamin B 12 sycinrgcqo70/02/2023 02/21/2023FH: brain zqwasrtl86pontaneous vaginal delivery Failed induction of labor, rdwtkvdovc71 Intrauterine dzrcxdnzu64Echogenic focus of heart of fetus affecting antepartum care of depkod36 Overview (10/09/2017): First Trimester and MSAFP is WNL US was repeated and the EIF Is smaller - her first trimester screen was negative PLAN: rpt US in 4 weeks Notify Peds at History of hepatitis Overview (09/08/2023): treated 04/2020 with Mavyret (Dr. Daniel) 09/07/22 viral load undetectable 09/05/23 viral load undetected Rh negative, antepartum, first kfsmctqpt26Attention deficit hyperactivity disorder (ADHD), predominantly hyperactive type03/20/2017 10/01/20245382Qatkxos27Headaches, miqjjwp10HCV antibody kerojear67 Overview (07/17/2017): Avoid scalp electrode Notify peds at delivery LFT and viral load each trimester and at delivery Elevated liver vifcbrg20Cannabis abuse Tobacco useHistory of opioid abuse Overview (08/14/2017): Has not used opoid since Hx of intravenous drug use in hfufluaqa15CIN II (cervical intraepithelial neoplasia II) Overview (08/14/2017): =ASC-H =HGSIL = LEEP - Dr. Bhatia - PAP=WNL Rpt PAP post Encounters DateTypeDepartmentCare KekyInjaqetdnsm86/08/2025 9:00 AM ESTOffice Visit Maternal Medicine [facility] [address] [place] [address] Abiola Lees MD 26 weeks gestation of (Primary Dx); Twin following selective reduction, antepartum; Dichorionic diamniotic twin in second trimester; Carrier of vsroumgvwrbg53/08/4848Bnwuen74/24/2025Orders Only Maternal- Medicine at [facility] [address] [place] [address] Debo Shea, KLEVER AMA (advanced maternal age) multigravida 35+, second trimester (Primary Dx); Dichorionic diamniotic twin in second soqeygnpl17/24/2025Orders Only Maternal- Medicine at [facility] [address] [place] [address] Malena Ocasio RDMS 03/19/2025Orders Only Maternal- Medicine at [facility] [address] [place] [address] Ref Prov, Not In System 03/18/2025Telephone Maternal- Medicine at [facility] [address] [facility] [place] [address] Helen Robertson, RN 03/11/2025 11:00 AM ESTOffice Visit Maternal- Medicine at [facility] [address] [place] [address] Tejinder Mccarthy MD Anemia affecting in third trimester (Primary Dx); AMA (advanced maternal age) multigravida 35+, second aqbwtvfrp45/04/2025 8:54 AM EST - 03/11/2025 11:59 PM ESTHospital Encounter [facility] [address] [place] [place] [address] Screening, , for anatomic survey Discharge Disposition: Home03/11/20250470Eezqot60/16/2025Orders Only Maternal- Medicine at [facility] [address] [place] [place] [address] Ref Prov, Not In System 02/19/2025 1:45 PM EDTSupport Visit Maternal- Medicine at [facility] [address] [place] [place] [address] 02/19/20251747Tnvnqq52/06/2025bstract Maternal- Medicine at [facility] [address] [place] [place] [address] Tejinder Mccarthy MD from Last 3 Months Immunizations ImmunizationAdministration DatesNext AzeAPT8506/12/1989,02/08/1990,1989DTaP, Idzgnlabhkp63/08/2002,10/04/1994,04/16/1991HPV Auzpjmlsbmfd16/14/2007Hep A, 2 Dose03/21/2007Hep B, Adolescent or Wxumwtlmn30/26/2002,05/15/2001,04/04/2001HiB 02/12/1991,09/20/1990,08/05/1990Influenza, Injectable, quadrivalent (PF) 02/27/2024,05/22/2017MMR05/15/2001,02/12/1991Meningococcal UEP7Y6303/21/2007OPV 10/04/1994,04/16/1991,02/08/1990,1989Polio, Uaotsaxpyzo24/08/2002RSV, bivalent, protein subunit RSVpreF, diluent reconstituted, 0.5 mL, PF02/23/2024 Rho (D) Immune Mmhvcrgj28/21/2024,01/02/2024,11/14/2023,08/23/2023,09/11/2017Td, Czrvrquudfk38/26/6099Xrwm58/06/2024 Family History Medical HistoryRelationNameCommentsDrug abuseBrotherDrug abuseFatherHeart diseaseFatherMigrainesFatherParkinsonismMaternal GrandfatherBreast cancer Maternal Grandmotherdiagnosed 2016DepressionMotherDrug abuseMotherMigraines MotherHeart diseasePaternal GrandmotherColon cancerNeg HxOvarian cancerNeg Hx Uterine cancerNeg HxRelationNameStatusCommentsBrotherFatherAliveMaternal GrandfatherDeceasedMaternal GrandmotherAliveMotherAlivePaternal Grandfather unknownDeceasedPaternal GrandmotherDeceased Social History Tobacco UseTypesPacks/DayYears UsedDateSmoking Tobacco: FormerCigarettes0.58.1 Started: 04/05/2017Smokeless Tobacco: Never Tobacco Cessation:Counseling Given: Not Answered Alcohol UseStandard Drinks/WeekCommentsNot Currently3 (1 standard drink = 0.6 oz pure alcohol)occasionalAHC UtilitiesAnswerDate RecordedIn the past 12 months has the [employer], gas, oil, or water Evri threatened to shut off services in your home?No03/28/2024Overall Financial Resource Strain (CARDIA)AnswerDate RecordedHow hard is it for you to pay for the very basics like food, housing, medical care, and heating?Not hard at all05/07/2024HQ-2AnswerDate RecordedTotal Xcgpg708PRAPARE - TransportationAnswerDate RecordedIn the past 12 months, has lack of transportation kept you from medical appointments or from getting medications?No03/28/2024In the past 12 months, has lack of transportation kept you from meetings, work, or from getting things needed for daily living?No03/28/2024Edinburgh Depression ScaleAnswerDate Recorded Cromona Depression Scale Wcqur960The thought of harming myself has occurred to [...] part of a household?No03/28/2024hildcareAnswerDate RecordedDo problems getting summer child caregiver make it difficult for you to work or study?No05/07/2024EmploymentAnswerDate FnpcdpkfPwgaltjakkUaplukt62/10/2019Hunger ScreeningAnswerDate RecordedWithin the past 12 months we worried whether our food would run out before we got money to buy more.Never True03/11/2025Within the past 12 months the food we bought just didn't last and we didn't have money to get more.Never True03/11/2025Purpose - LifeAnswerDate RecordedPurpose and direction in faeuLoemmoe04/10/2021 Estimated Date of IlpznoazKudwtejrCbr86/11/2026Based on UltrasoundSex and Gender InformationValueDate RecordedSex Assigned at EwlyvIxtrgh71/02/2022 7:15 PM EDT Legal VyjRsohfs77/04/2015 2:44 PM EDTGender VquerhlmAzesjv53/02/2022 7:15 PM EDT Sexual YqqldrjafvuKapdoekm35/02/2022 7:15 PM EDT Last Filed Vital Signs Vital SignReadingTime TakenCommentsBlood Nlxqcnxc399/7004/14/2025 9:04 AM EST Rahcc073504/14/2025 9:04 AM HLJRgowfqnfsuv93.6 ??C (97.8 ??F)10/29/2024 3:04 PM EDTRespiratory Qazu909105/28/2023 3:55 PM ESTOxygen Vowxegizdm84%10/29/2024 3:04 PM EDTInhaled Oxygen Concentration--Rgvtlx42.9 kg (185 lb)04/14/2025 9:04 AM EST Kvvdnw485 cm (5' 2.99 )03/11/2025 9:42 AM ESTBody Mass Index32.7803/11/2025 9:42 AM EST Plan of Treatment DateTypeDepartmentCare Team (Latest Contact Info)Ugsibxvjlot53/08/2026 8:30 AM ESTAppointment [facility] [address] [place] [address] 05/15/2025 11:00 AM ESTOffice Visit Maternal- Medicine at [facility] [address] [place] [address] Abiola Lees MD [address] [facility], [address] [place] [address] 11/04/2025 4:00 PM EDTOffice Visit [facility] [address] [place] [address] Rebecca Rizvi, DONOR RECRUITMENT MANAGER-[facility] [address] [place] [address], [place] [address] Health MaintenanceDue DateLast DoneCommentsAdult BMI Follow Up Plan10/04/2007 Influenza Iehqwfq83, 05/22/2017Depression Bqkqnrfeh89/24/2026 10/29/2024, 05/07/2024dult BMI Iqqbyotgm55Tobacco Screening Pap Smear, 10/01/2024, 09/05/2023, Additional history existsDTaP,Tdap and Td Vaccines (9 - Td or Tdap)01/11/2034 01/12/2024, 12/31/2001, 05/15/2001, Additional history existsRSV ( or age 60+ yrs)Deuaenvaq10/18/2024 Medical Devices Not on file Procedures Procedure NamePriorityDate/TimeAssociated DiagnosisCommentsUS [facility], 1 LYINVQzueluo72/08/2025 9:15 AM EST AMA (advanced maternal age) multigravida 35+, second trimester Dichorionic diamniotic twin in second trimester ULTRASOUND GPNHNLWjkkarq01/11/2025 11:14 AM ESTMR MYSYGCyinbyt20/10/2025 11:19 AM ESTULTRASOUND QWAXTGZqzbnwc03/10/2025 11:07 AM ESTUS [facility]PITAL COMPREHENSIVE ANATOMIC FRLXHTNfjclns50/04/2025 11:56 AM EST Screening, , for anatomic survey FREE CELL DNA (NON-[facility] SEND OUT)Kbcdfoi1202/18/2025 11:39 AM EDTTYPE AND RAZARWHtawndq74/23/2025 HEPATITIS B SURFACE PLXKNVXSwdyhjm41/23/2025 DRUG SCREEN, MHGYOBjrpiop17/23/2025 CBC (NO DIFF)Rkvhhhc0201/28/2025 HIV 1&2 AB/AG SCREEN (P24 AG)Lwrsilc8801/28/2025 RUBELLA IGG IMMUNE POUVOCMvkmhbn30/23/2025 SYPHILIS TOTAL(UNKNOWN SYPHILIS STATUS)Xvbmtjm3601/28/2025 HIGH RISK HPV W/KCDZFggwaau07/27/2025 1:50 PM EDT Screening for cervical cancer from Last 3 Months or Most Recently Relevant to Health Maintenance Results * [facility] OB FOLLOW-UP, 1 FETUS (04/14/2025 9:15 AM EST) Only the most recent of2 resultswithin the time period is included. Anatomical RegionLateralityModalityOB-GYNUltrasoundSpecimen (Source)Anatomical Location / LateralityCollection Method / VolumeCollection TimeReceived Time 04/14/2025 8:13 AM EST Narrative 04/14/2025 9:33 AM EST NAME: ??DESMOND GUTIERREZ : 1990 SEX: F Accession Number: [id number] ORDERING PHYSICIAN: ABIOLA LEES REFERRING PHYSICIAN: ABIOLA LEES Coding Procedures ? 11293: Ultrasound, uterus, real time with image documentation, follow up,transabdominal ? approach per fetus Indication Di-Di twin , AMA- Supervision of elderly, Supervision of high risk (twin A)- venticulomegaly, spina bifida, dandy walker malformation, bilateral club feet , selective reduction of twin A , Screening for follow-up survey. History OB History ? 3. Para 2 ? T2 Current Cell free DNA ?Low risk analysis Maternal Assessment Physical Exam ??Height 160 cm, 5 ft 3 in. Initial weight 75 kg, 165 lb. Initial BMI 29.23 kg/m?? Method Transabdominal ultrasound examination. Twin . Number of fetuses: 2. Dichorionic-diamniotic Dating Previous Ultrasound on: ?01/03/2025 Type of prior assessment: ?GA GA at prior assessment date ?12 w + 2 d GA by previous U/S ? 26 w + 5 d LUCIO by previous Ultrasound: ?07/16/2025 Ultrasound examination on: ? 04/14/2025 GA by U/S based upon (Fetus 2): ?AC, BPD, Femur, HC GA by U/S (Fetus 2) ?27 w + 2 d LUCIO by U/S (Fetus 2): ??07/12/2025 Assigned: ?based on ultrasound (GA), selected on 03/11/2025 Assigned GA (weeks days) ? 26 w + 5 d Assigned LUCIO: ??07/16/2025 Fetus A: General Evaluation Cardiac activity Absent. Presentation: lower Placenta: Placental site: not examined Umbilical cord: Cord vessels: not examined. Insertion site: not examined Amniotic fluid: Amount of AF: not examined Fetus B: General Evaluation Cardiac activity Present. FHR 129 bpm. Presentation: Upper left, cephalic Placenta: Placental site: posterior, previously documented away from cervical os Umbilical cord: Cord vessels: 3 vessel cord. Insertion site: normal insertion Amniotic fluid: Amount of AF: normal amount. MVP 5.5 cm Fetus B: Biometry Standard BPD ?67.7 mm 27w 2d 58% Hadlock OFD ?90.7 mm 29w 2d 98% Bibiana HC ? 252.8 mm ?27w 3d 48% Hadlock Cerebellum tr ??30.6 mm 26w 3d 62% Hill AC ? 232.4 mm ?27w 4d 69% Hadlock Femur ??50.1 mm 27w 0d 42% Hadlock Humerus ?44.7 mm 26w 4d 38% Bibiana HC / AC ?1.09 EFW ?1,059 g ??63% Hadlock EFW (lb) ? 2 lb EFW (oz) ? 5 oz EFW by: ?Hadlock (UKW-DB-MF-FL) Extended Tibia ??44.5 mm 27w 3d 67% Bibiana Certified Hyperbaric Technician ? 3.3 mm CM ? 8.8 mm ?? 95% Nicolaides Inner IOD ?17.6 mm Outer IOD ?40.6 mm Head / Face / Neck Cephalic index 0.75 ? 12% Nicolaides Nasal bone: ?present Extremities / Bony Struc FL / BPD ? 0.74 FL / HC ?0.20 FL / AC ?0.22 Other Structures FHR ?129 bpm Fetus B: Anatomy The following structures appear normal: Head/Neck: Cranium. Lateral ventricles. Cavum septi pellucidi. Cerebellum. Cisterna magna. Parenchyma. Vermis. ? Neck. Face: Profile. Nasal bone. Maxilla. Mandible. Orbits. Heart/Thorax: 4-chamber view. RVOT view. LVOT view. 3-vessel view. 4-lhbvfb-dmqskyh view. Situs. Aortic arch view. ? Bicaval view. Ductal arch view. Interventricular septum. Great vessels. Cardiac position. Cardiac axis. ? Cardiac size. Cardiac rhythm. ? Right lung. Left lung. Diaphragm. Abdomen: Stomach. Kidneys. Bladder. Extremities/Skeleton: Right hand. Left upper arm. Left forearm. Left hand. Right upper leg. Right lower leg. Left foot. Skeleton The following structures were documented previously: Head / Neck ?Choroid plexus. Midline falx. Face ?? Lips. Nose. Abdomen ?Abdom. wall. Cord insertion. Right renal artery. Left renal artery. Genitals. Spine: Cervical spine. Thoracic spine. Lumbar spine. Sacral spine. Extremities / ??Right upper arm. Right forearm. Right foot. Left upper leg. Left lower leg. Skeleton Maternal Structures Uterus Visualized Cervix Suboptimal ? Approach - Transabdominal Right Ovary ?Not visualized Left Ovary ? Not visualized Cul de Sac ? Suboptimal Impression Dichorionic-diamniotic twin consistent with 26w 5d with [...] abnormalities. Amniotic fluid MVP measures 5.5 cm. Recommendations Please see follow up MFM documentation from today's encounter. Subsequent follow up or other follow up as clinically determined by primary OB provider unless otherwise specified by MFM. Results forwarded to ordering provider so they can follow up with the patient as necessary. Procedure Note Abiola Lees MD - 04/14/2025 NAME: DESMOND GUTIERREZ : 1990 SEX: F Accession Number: [id number] ORDERING PHYSICIAN: ABIOLA LEES REFERRING PHYSICIAN: ABIOLA LEES Coding Procedures 22657: Ultrasound, uterus, real time with image documentation, follow up, transabdominal approach per fetus Indication Di-Di twin , AMA- Supervision of elderly, Supervision of highrisk (twin A)- venticulomegaly, spina bifida, dandy walker malformation, bilateral club feet , selective reduction oftwin A , Screening for follow-up survey. History OB History 3. Para 2 T2 Current Cell free DNA Low risk analysis Maternal Assessment Physical Exam Height 160 cm, 5 ft 3 in. Initial weight 75 kg, 165 lb.Initial BMI 29.23 kg/m?? Method Transabdominal ultrasound examination. Twin . Number of fetuses: 2. Dichorionic-diamniotic Dating Previous Ultrasound on: 01/03/2025 Type of prior assessment: GA GA at prior assessment date 12 w + 2 d GA by previous U/S 26 w + 5 d LUCIO by previous Ultrasound: 07/16/2025 Ultrasound examination on: 04/14/2025 GA by U/S based upon (Fetus 2): AC, BPD, Femur, HC GA by U/S (Fetus 2) 27 w + 2 d LUCIO by U/S (Fetus 2): 07/12/2025 Assigned: based on ultrasound (GA), selected on 03/11/2025 Assigned GA (weeks days) 26 w + 5 d Assigned LUCIO: 07/16/2025 Fetus A: General Evaluation Cardiac activity Absent. Presentation: lower Placenta: Placental site: not examined Umbilical cord: Cord vessels: not examined. Insertion site: not examined Amniotic fluid: Amount of AF: not examined Fetus B: General Evaluation Cardiac activity Present. FHR 129 bpm. Presentation: Upper left,cephalic Placenta: Placental site: posterior, previously documented away fromcervical os Umbilical cord: Cord vessels: 3 vessel cord. Insertion site: normalinsertion Amniotic fluid: Amount of AF: normal amount. MVP 5.5 cm Fetus B: Biometry Standard BPD 67.7 mm 27w 2d 58% Hadlock OFD 90.7 mm 29w 2d 98% Bibiana HC 252.8 mm 27w 3d 48% Hadlock Cerebellum tr 30.6 mm 26w 3d 62% Hill AC 232.4 mm 27w 4d 69% Hadlock Femur 50.1 mm 27w 0d 42% Hadlock Humerus 44.7 mm 26w 4d 38% Bibiana HC / AC 1.09 EFW 1,059 g 63% Hadlock EFW (lb) 2 lb EFW (oz) 5 oz EFW by: Hadlock (BLI-HL-DR-FL) Extended Tibia 44.5 mm 27w 3d 67% Bibiana Certified Hyperbaric Technician 3.3 mm CM 8.8 mm 95% Nicolaides Inner IOD 17.6 mm Outer IOD 40.6 mm Head / Face / Neck Cephalic index 0.75 12% Nicolaides Nasal bone: present Extremities / Bony Struc FL / BPD 0.74 FL / HC 0.20 FL / AC 0.22 Other Structures FHR 129 bpm Fetus B: Anatomy The following structures appear normal: Head/Neck: Cranium. Lateral ventricles. Cavum septi pellucidi. Cerebellum. Cisterna magna. Parenchyma. Vermis. Neck. Face: Profile. Nasal bone. Maxilla. Mandible. Orbits. Heart/Thorax: 4-chamber view. RVOT view. LVOT view. 3-vessel view. 1-uceuey-bxjyumb view. Situs. Aortic arch view. Bicaval view. Ductal arch view. Interventricular septum. Greatvessels. Cardiac position. Cardiac axis. Cardiac size. Cardiac rhythm. Right lung. Left lung. Diaphragm. Abdomen: Stomach. Kidneys. Bladder. Extremities/Skeleton: Right hand. Left upper arm. Left forearm. Left hand.Right upper leg. Right lower leg. Left foot. Skeleton The following structures were documented previously: Head / Neck Choroid plexus. Midline falx. Face Lips. Nose. Abdomen Abdom. wall. Cord insertion. Right renal artery. Left renalartery. Genitals. Spine: Cervical spine. Thoracic spine. Lumbar spine. Sacral spine. Extremities / Right upper arm. Right forearm. Right foot. Left upper leg.Left lower leg. Skeleton Maternal Structures Uterus Visualized Cervix Suboptimal Approach - Transabdominal Right Ovary Not visualized Left Ovary Not visualized Cul de Sac Suboptimal Impression Dichorionic-diamniotic twin consistent with 26w 5d with an EDDof 07/16/2025. Twin A is lower. Known demise, selective reduction due to anomalies. 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 Intrauterine with normal growth. EFW mesures at the 63%,AC measures at the 69%. anatomic survey did not reveal sonographic evidence of any grossstructural abnormalities. Amniotic fluid MVP measures 5.5 cm. Recommendations Please see follow up MFM documentation from today's encounter. Subsequent follow up or other follow up as clinically determined byprimary OB provider unless otherwise specified by MFM. Results forwarded to ordering provider so they can follow up with thepatient as necessary. Authorizing ProviderResult TypeResult StatusAbiola Lees MDIMG US ORDERABLESFinal Result * Ultrasound - Office (03/18/2025 11:14 AM EST) Only the most recent of2 resultswithin the time period is included. Anatomical RegionLateralityModalityAMBUltrasound Narrative Authorizing ProviderResult TypeResult StatusNot In System Ref ProvIMG US ORDERABLESFinal Result * MR (03/17/2025 11:19 AM EST)Anatomical RegionLateralityModalityBodyN/A Magnetic Resonance Narrative Authorizing ProviderResult TypeResult StatusNot In System Ref ProvIMG MRI ORDERABLESFinal Result * Free Cell DNA (Non-[facility] Send [...] diff (01/28/2025)ComponentValueRef RangeTest MethodAnalysis Time Performed AtPathologist GnwekofvbHwmprlidup52.7MANUALLY TRANSCRIBED RESULTS Jmaxbbnfws18.6MANUALLY TRANSCRIBED RESULTSRbc Mcv (Fl) By Automated Count93 MANUALLY TRANSCRIBED KMDFKFIEnchibvjr199XIMDAAML TRANSCRIBED RESULTSSpecimen (Source)Anatomical Location / LateralityCollection Method [...] TimePerformed AtPathologist SignatureHPV 16NegativeNegative 10/02/2024 2:06 PM [facility]ORYHPV 18Negative Upyatjmf22/28/2025 2:06 PM [facility] LABORATORYOTHER HIGH RISK FHUSlalcxyvDezsjlhe17/28/2025 2:06 PM [facility] LABORATORYComment:HPV types 31, 33, 35, 39, 45, 52, 56, 58, 59, 66, and 68 DNA were undetectable.Specimen (Source)Anatomical Location / LateralityCollection Method / VolumeCollection TimeReceived TimeThinPrep cytology technique (qualifier value)Cervix uteri structure / Thpraxk0910/01/2024 1:50 PM EDT 10/02/2024 3:04 AM EDT Narrative Authorizing ProviderResult TypeResult StatusJane Jenna Figueroamibriana DONOR RECRUITMENT MANAGER-CNMLAB BLOOD ORDERABLESFinal ResultPerforming OrganizationAddressCity/State/ZIP CodePhone Number [facility] [address] [place] [address], from Last 3 Months or Most Recently Relevant to Health Maintenance Insurance Advance Directives * Full Code (Latest Code Status on File) Date ActivatedDate DmbmmcnbcqsAuzvozvq13/19/2024 10:52 PM03/28/2024 11:13 PM * Full Code Date ActivatedDate InactivatedComments12/08/2017 8:05 AM12/10/2017 9:50 AM * Full Code Date ActivatedDate InactivatedComments12/01/2017 8:08 AM12/02/2017 12:35 PM Care Teams Team MemberRelationshipSpecialtyStart DateEnd Date Rebecca Rizvi APRN-JEYSON [facility] [place] [address] PCP - GeneralNurse Practitioner08/23/22
--- OUTSIDE RECORDS SUMMARY | 2025-04-26 15:06 | XMS_ITS ---
Author Organization [facility] Source Produ ction (ClinicalSummary Clone) Address Unknown Care Team Providers Care Design Engineering Manager Name Role Phone Unavailable Primary Care Physician Unavailab le Results * [UNITY] ANEUPLOIDY NIPT Performed by: Cinematique Component Value Range Date Fraction 8.4% 02/19/2025 03:18 am UTCRh(D) NIPTRhD NOT KHEZIJJK63/15/2025 03:18 am UTCTrisomy 13LOW RISK <1 in 03:18 am UTCTrisomy 18LOW RISK <1 in 10,000 02/19/2025 03:18 am UTCTrisomy 21LOW RISK <1 in , 03:18 am UTC SexMALE & MALE02/19/2025 03:18 am UTCPregnancy GestationTWIN - DIZYGOTIC (FRATERNAL)02/19/2025 03:18 am UTCFor detailed report, see PDFSee PDF02/19/2025 03:18 am UTC1 03:18 am UTC Social History Observation Value Start Date End Date
--- OUTSIDE RECORDS SUMMARY | 2025-04-26 15:06 | XMS_ITS | Clinical Summary ---
Author Organization [facility] Healthcare Address [address] [place] [address] Care Team Providers Care Teacher Of The Sight Impaired Name Role Phone Rebecca Rizvi MD Primary Care Provider [phone] Allergies No known active allergies Medications MedicationSigDispense QuantityRefillsLast FilledStart DateEnd DateStatus biotin 5 MG capsule Take 5 mg by mouth in the morning.5Active Docusate Sodium (DSS) 100 MG capsule Indications:Constipation during in second trimester ([facility])Take 1 capsule (100 mg) by mouth in the morning and 1 capsule (100 mg) before bedtime. 60 capsule 5Active Vit-Fe Fumarate-FA ( Vitamins) 28-0.8 MG tablet Indications:Positive urine test ([facility]),, unspecified gestational age ([facility]),Encounter for supervision of normal first in first trimester ([facility])Take 1 tablet by mouth Daily 30 tablet 5Active acetaminophen (Tylenol) 160 MG/5ML liquid Indications:Nonintractable headache, unspecified chronicity pattern, unspecified headache typeTAKE 20.3 ML BY MOUTH EVERY 6 HOURS NEEDED FOR HEADACHES FOR UP TO 10 DAYS Strength: 160 MG/5ML 120 mL 5Active famotidine (Pepcid) 20 MG tablet Indications:Heartburn during in second trimester ([facility])Take 2 tablets (40 mg) by mouth in the morning. 60 tablet 6Active famotidine (Pepcid) 20 MG tablet Indications:Heartburn during in second trimester ([facility])Take 1 tablet (20 mg) by mouth in the morning. 30 tablet 5106/16/2024Discontinued(Reorder) acetaminophen (Tylenol) 160 MG/5ML liquid Indications:Nonintractable headache, unspecified chronicity pattern, unspecified headache typeTAKE 20.3 ML BY MOUTH EVERY 6 HOURS NEEDED FOR HEADACHES FOR UP TO 10 DAYS 120 mL Discontinued(Reorder) acetaminophen (Tylenol) 160 MG/5ML liquid Indications:Nonintractable headache, unspecified chronicity pattern, unspecified headache typeTAKE 20.3 ML BY MOUTH EVERY 6 HOURS NEEDED FOR HEADACHES FOR UP TO 10 DAYS Strength: 160 MG/5ML 120 mL Discontinued famotidine (Pepcid) 20 MG tablet Indications:Heartburn during in second trimester ([facility])Take 2 tablets (40 mg) by mouth in the morning. 60 tablet Discontinued(Reorder) Active Problems ProblemNoted DateDiagnosed DateMultigravida of advanced maternal age in second trimester ([facility])03/13/2025H/O LEEP105/13/2024HSV (herpes simplex virus) mrutbtxhh06/06/2025arrier of genetic defect for nhgagjkggaxn37/06/2025Twin gestation in second trimester ([facility])03/13/2025Estimated Date of GveryzxbZlmmdahuMne28/11/2026Based on Ultrasound Encounters DateTypeDepartmentCare LaypKpunvssbjxz48/17/2025 1:40 [place] [address] Mamadou Hayden DO Third trimester ([facility]); 28 weeks gestation of ([facility]); Multigravida of advanced maternal age in second trimester ([facility]); Twin following selective reduction, antepartum ([facility]) 04/23/2025amboo [place] [address] Mamadou Hayden DO 04/16/2025Telephone [facility] [address] [place] [phone] Sosa Funes MA 04/15/2025Refill [facility] [address] [place] [phone] Sosa Funes MA Heartburn during in second trimester ([facility])04/14/2025Telephone [facility] [address] [place] [address] Janett Zheng PA 04/10/2025 1:30 PM ESTRoutine [facility] [address] [place] [address] Janett Zheng PA Second trimester ([facility]); 26 weeks gestation of ([facility])5Clinisync Result Encounter [facility] External Department Unsolicited Mamadou Hayden, 5Bamboo flowsheet [facility] [address] [place] [address] [place] [address] Janett Zheng PA 04/08/2025Telephone [facility] [address] [place] [address] [place] [address] Evelyn Kee LPN 5Abstract [facility] [address] 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; HSV (herpes simplex virus) infection; H/O LEEP; Multigravida of advanced maternal age in second trimester ([facility]); Twin gestation in second trimester, unspecified multiple gestation type ([facility]); Diabetes mellitus screening; Screen for STD (sexually transmitted disease)03/13/2025Patient Outreach [facility] [address] [place] [phone] Janett Limon LPN 03/13/2025amboo flowsheet [facility] [address] [place] [address] Mamadou Hayden, DO 03/12/2025bstract [facility] [address] [place] [address] Mamadou Hayden, DO 03/11/2025External Result Encounter [facility] [address] [place] [address] Mamadou Hayden, DO 03/04/2025linisync Result Encounter NOMS External Department Unsolicited Mamadou Hayden, DO 02/20/2025Refill [facility] [address] [place] [address] Janett Zheng PA Nonintractable headache, unspecified chronicity pattern, unspecified headache type02/20/2025Telephone [facility] [address] [place] [address] Mamadou Hayden, DO 02/19/2025bstract [facility] [address] [place] [address] Mamadou Hayden, DO 02/19/2025bstract [facility] [address] [place] [address] Mamadou Hayden, DO 02/12/2025 3:20 PM EDTRoutine [facility] [address] [place] [address] Jaylin Chung, REELING MACHINE OPERATOR Second trimester ([facility]); 18 weeks gestation of ([facility])5Clinisync Result Encounter [facility] External Department Unsolicited Mamadou Hayden DO 5Bamboo flowsheet [facility] [address] [place] [address] [place] [address] Jaylin Chung NP 02/10/2025Telephone [facility] [address] [place] [address] [place] [address] Sosa Funes MA from Last 3 Months Social History Tobacco UseTypesPacks/DayYears UsedDateSmoking Tobacco: Never Assessed Estimated Date of JyuczlhpEcgtvbvbRqw35/11/2026ased on UltrasoundSex and Gender InformationValueDate RecordedSex Assigned at BirthNot on fileLegal SexFemale 07/20/2022 6:43 PM EDTGender IdentityNot on fileSexual OrientationNot on file Last Filed Vital Signs Vital SignReadingTime TakenCommentsBlood Myviofys993/7004/23/2025 1:54 PM EST Pulse--Temperature--Respiratory Rate--Oxygen Saturation--Inhaled Oxygen Concentration--Pzqxcj33.9 kg (185 lb)04/23/2025 1:54 PM ESTHeight--Body Mass Index-- Plan of Treatment DateTypeDepartmentCare Team (Latest Contact Info)Vctldceudms27/31/2025 10:20 AM ESTRoutine [facility] [address] [place] [address] [place] [address] Jaylin Chung, NATHANIEL [address] [place] [address] [place] [address] 05/21/2025 3:50 PM ESTRoutine [facility] [address] [place] [address] [place] [address] Mamadou Hayden, DO [address] [place] [address] [place] [address] Procedures Procedure NamePriorityDate/TimeAssociated DiagnosisCommentsPOCT URINALYSIS RJBWCEEGBygvjho48/17/2025 2:02 PM EST 28 weeks gestation of ([facility]) GLUCOSE 1 ISWJFqcputk76/04/2025 1:29 PM EST ALL CBC WITH AUTO HXOXGlernmv31/04/2025 1:29 PM EST RECURRENT VAGINITIS (HTRX)Wpiqghx5403/13/2025 11:37 AM EST POCT URINALYSIS OVFBCASIVpttnsz65/06/2025 10:18 AM EST Second trimester ([facility]) US OB 14+ WEEKS ANATOMY SCAN03/11/2025 3:30 PM EST ALL MISCELLANEOUS MNJHXhkrzio81/28/2025 12:49 PM EDT ALL VITAMIN T0Zqszkri96/08/2025 5:26 PM EDT AFP, SERUM, OPEN SPINA GCKSSSKfikoki27/08/2025 5:26 PM EDT BOX HWQMJxxevqs27/08/2025 5:26 PM EDT from Last 3 Months Results * (ABNORMAL) POCT urinalysis dipstick manually resulted (04/23/2025 2:02 PM EST) Only the most recent of2 resultswithin the time period is included. ComponentValueRef RangeTest MethodAnalysis TimePerformed AtPathologist Signature Color, UAYellowClarity, UAClearGlucose, UANegativeNegative - 2000(110) ++++ mg/dLBilirubin, UANegativeNegative - 4(70) +++ mg/dLKetones, UANegativeNegative - 160(16) ++++ mg/dLSpec Grav, UA1.0101 - 1.03Blood, UANegativeNegative - 50 Masood/mcLpH, UA6.05 - 9Protein, UATraceNegative - 2000(20) ++++ mg/dLUrobilinogen, UA1.00.2 - 12 mg/dLLeukocytes, UANegativeNegative - 500+++ Albin/mcLNitrite, UA NegativeNegative - PositiveSpecimen (Source)Anatomical Location / Laterality Collection Method / VolumeCollection TimeReceived ZipgJffoa29/17/2025 2:02 PM EST Narrative Authorizing ProviderResult TypeResult StatusCorey [facility] CenterOINT OF CARE TEST ENTER/EDIT ORDERABLESFinal Result * GLUCOSE 1 HOUR (04/10/2025 1:29 PM EST)ComponentValueRef RangeTest Method Analysis TimePerformed AtPathologist SignatureGLUCOSE 1 THFJ636<130 mg/dLTBH Specimen (Source)Anatomical Location / LateralityCollection Method / Volume Collection TimeReceived Time04/10/2025 1:29 PM EST04/10/2025 1:40 PM EST Narrative CLIN[facility]YNC - 04/10/2025 2:00 PM EST Authorizing ProviderResult TypeResult StatusCorey [facility] DOLAB BLOOD ORDERABLES Final ResultPerforming OrganizationAddressCity/State/ZIP CodePhone Number [facility]ISYNC [facility] * (ABNORMAL) ALL CBC WITH AUTO DIFF (04/10/2025 1:29 PM EST)ComponentValueRef RangeTest MethodAnalysis TimePerformed AtPathologist SignatureTBH WBC8.94.0 - 11.0 10 3/uLTBHTBH RBC3.88(L)4.20 - 5.40 10 6/uLTBHTBH HGB11.6(L)12.0 - 16.0 g/dLTBHTBH HCT34.9(L)36.0 - 48.0 %TBHTBH MCV89.981.0 - 99.0 fLTBHTBH MCH29.9 26.7 - 34.0 pgTBHTBH MCHC33.229.9 - 35.2 g/dLTBHTBH RDW13.111.0 - 15.0 %TBHTBH RNH932527 - 450 10 3/uLTBHTBH MPV10.59.5 - 13.5 fLTBHNEUTROPHILS PERCENT AUTO 72.643.0 - 75.0 %TBHLYMPHOCYTES PERCENT AUTO18.8(L)20.5 - 60.0 %TBHMONOCYTES PERCENT AUTO4.91.7 - 12.0 %TBHTBH EO %1.40.9 - 7.0 %TBHBASOPHILS PERCENT AUTO 0.20.2 - 2.0 %TBHIMMATURE GRANULOCYTES PCT AUTO2.1(H)0.0 - 0.5 %TBHNEUTROPHILS ABSOLUTE AUTO6.41.4 - 6.5 10 3/uLTBHLYMPHOCYTES ABSOLUTE AUTO1.71.2 - 3.8 10 3/uLTBHMONOCYTES ABSOLUTE AUTO0.40.3 - 0.8 10 3/uLTBHTBH EO #0.10.0 - 0.7 10 3/uLTBHBASOPHILS ABSOLUTE AUTO0.00.0 - 0.1 10 3/uLTBHIMMATURE GRANULOCYTES ABS AUTO0.19(H)0.00 - 0.03 10 3/uLTBHSpecimen (Source)Anatomical Location / LateralityCollection Method / VolumeCollection TimeReceived Time04/10/2025 1:29 PM EST04/10/2025 1:40 PM EST Narrative [facility]INISYNC - 04/10/2025 1:51 PM EST Authorizing ProviderResult TypeResult StatusCorey Jackelyn DOCLINISYNCFinal Result Performing OrganizationAddressCity/State/ZIP CodePhone Number * RECURRENT VAGINITIS (HTRX) (03/13/2025 11:37 AM EST)ComponentValueRef Range Test MethodAnalysis TimePerformed AtPathologist SignatureATOPOBIUM VAGINAE0 19.961 - 24.689 ppm03/14/2025 7:09 AM ESTHealthTrackRx at LabPortATOPOBIUM VAGINAENot Qtgfvqdt90.961 - 24.689 ppm03/14/2025 7:09 AM ESTHealthTrackRx at LabPortBVAB 2,3 (BACTERIAL VAGINOSIS ASSOCIATED BACTERIA 2, 3); MOBILUNCUS SPP 019.961 - 24.689 ppm03/14/2025 7:09 AM ESTHealthTrackRx at LabSt. [facility]'S [facility] Medical CenterBVAB 2,3 (BACTERIAL VAGINOSIS ASSOCIATED BACTERIA 2, 3); MOBILUNCUS SPPNot Detected 19.961 - 24.689 ppm03/14/2025 7:09 AM ESTHealthTrackRx at LabPortCANDIDA ALBICANS, PARAPSILOSIS, HSZECLOQLI677.000 - 30.347 ppm03/14/2025 7:09 AM EST [facility] at LabPortCANDIDA ALBICANS, PARAPSILOSIS, TROPICALISNot Detected 23.000 - 30.347 ppm03/14/2025 7:09 AM ESTHealthTrackRx at LabPortCANDIDA IQIPWNHS490.000 - 31.618 ppm03/14/2025 7:09 AM ESTHealthTrackRx at LabPort BRAN GLABRATANot Jrobfplf68.000 - 31.618 ppm03/14/2025 7:09 AM EST [facility] at LabPortCANDIDA WXAQMI386.000 - 30.873 ppm03/14/2025 7:09 AM ESTHealthTrackRx at LabPortCANDIDA KRUSEINot Gqfutgyc08.000 - 30.873 ppm 03/14/2025 7:09 AM ESTHealthTrackRx at LabPortCHLAMYDIA YSTSHCEAHGY481.000 - 31.586 ppm03/14/2025 7:09 AM ESTHealthTrackRx at LabPortCHLAMYDIA TRACHOMATIS Not Suotxowf41.000 - 31.586 ppm03/14/2025 7:09 AM ESTHealthTrackRx at LabPort GARDNERELLA OOALYKMXC330.961 - 24.689 ppm03/14/2025 7:09 AM ESTHealthTrackRx at LabPortGARDNERELLA VAGINALISNot Tirbfsat09.961 - 24.689 ppm03/14/2025 7:09 AM ESTHealthTrackRx at LabPortMEGASPHAERA (TYPES 1, 2)019.961 - 24.689 ppm 03/14/2025 7:09 AM ESTHealthTrackRx at LabPortMEGASPHAERA (TYPES 1, 2)Not Mdyfeniu65.961 - 24.689 ppm03/14/2025 7:09 AM ESTHealthTrackRx at LabPort NEISSERIA JGKCKAYPXUQ768.000 - 32.587 ppm03/14/2025 7:09 AM ESTHealthTrackRx at LabPortNEISSERIA GONORRHOEAENot Vnbywahx94.000 - 32.587 ppm03/14/2025 7:09 AM ESTHealthTrackRx at LabPortTRICHOMONAS UTITSEKBM997.000 - 31.995 ppm 03/14/2025 7:09 AM ESTHealthTrackRx at LabPortTRICHOMONAS VAGINALISNot Dgttptzx97.000 - 31.995 ppm03/14/2025 7:09 AM ESTHealthTrackRx at LabPort MYCOPLASMA RJUYMXLNKA016.961 - 24.689 ppm03/14/2025 7:09 AM ESTHealthTrackRx at LabPortMYCOPLASMA GENITALIUMNot Kajasqmt51.961 - 24.689 ppm03/14/2025 7:09 AM ESTHealthTrackRx at LabPortSpecimen (Source)Anatomical Location / LateralityCollection Method / VolumeCollection TimeReceived TimeTissue 03/13/2025 11:37 AM EST03/14/2025 1:59 AM EST Narrative Authorizing ProviderResult TypeResult StatusCoreindy Hayden DOLAB BLOOD ORDERABLES Final ResultPerforming OrganizationAddressCity/State/ZIP CodePhone Number [facility] LabPort [address] [place] [address] * US OB 14+ weeks anatomy scan (03/11/2025 3:30 PM EST)Anatomical Region LateralityModalityBodyUltrasoundSpecimen (Source)Anatomical Location / LateralityCollection Method / VolumeCollection TimeReceived Time03/11/2025 3:30 PM EST Narrative 03/11/2025 3:30 PM EST THIS [facility] NAME: ??DESMOND GUTIERREZ : 1990 SEX: F Accession Number: [id number] ORDERING PHYSICIAN: MAMADOU HAYDEN REFERRING PHYSICIAN: MAMADOU HAYDEN Coding Procedures ? 68931: Ultrasound, uterus, real time with image documentation, and maternal evaluation ? plus detailed anatomic examination, transabdominal approach;single or first gestation. 2 ? 46702: Ultrasound, uterus, real time with image documentation, [...] view: limited by position and activity. Medical Montessori Paraprofessional Montessori Paraprofessional declined Twin . Number of fetuses: 2. [...] (oz) ? 14 oz EFW by: ?Hadlock (FHF-YO-WM-FL) Extended Tibia ??31.1 mm 21w 3d 40% Bibiana Unit Manager ? 10.4 mm CM ? 3.6 mm [...] (oz) ? 2 oz EFW by: ?Hadlock (LCT-MY-LH-FL) Extended Tibia ??32.2 mm 21w 6d 57% Bibiana Unit Manager ? 5.4 mm CM ? 6.0 mm [...] Face: Orbits. Heart/Thorax: 4-chamber view. 3-vessel view. 3-ckwbtb-kslizqa view. Situs. Aortic arch view. Bicaval view. [...] Lips. Nose. Heart / Thorax 4-chamber view. 1-eftqrr-qwgahlu view. Situs. Aortic arch view. Cardiac rhythm. [...] patient as necessary. Procedure Note Radiology, Radiologist, - 03/11/2025 THIS EXAM WAS PERFORMED AT [facility] NAME: DESMOND GUTIERREZ : 1990 SEX: F Accession Number: [id number] ORDERING PHYSICIAN: MAMADOU HAYDEN REFERRING PHYSICIAN: MAMADOU HAYDEN Coding Procedures 31101: Ultrasound, uterus, real time with image documentation, and maternal evaluation plus detailed anatomic examination, transabdominalapproach;single or first gestation. 2 45933: Ultrasound, uterus, real time with imagedocumentation, transvaginal [...] Suboptimalview: limited by position and activity. Medical Montessori Paraprofessional Montessori Paraprofessional declined Twin . Number of fetuses: 2. [...] EFW (oz) 14 oz EFW by: Hadlock (XWK-AX-RG-FL) Extended Tibia 31.1 mm 21w 3d 40% Bibiana Unit Manager 10.4 mm CM 3.6 mm 5% Nicolaides [...] EFW (oz) 2 oz EFW by: Hadlock (UZZ-RA-IQ-FL) Extended Tibia 32.2 mm 21w 6d 57% Ibbiana Unit Manager 5.4 mm CM 6.0 mm 68% Nicolaides [...] Face: Orbits. Heart/Thorax: 4-chamber view. 3-vessel view. 2-loelxl-zeqkocu view. Situs.Aortic arch view. Bicaval view. Cardiac [...] Lips. Nose. Heart / Thorax 4-chamber view. 7-pqwlna-waxqvpa view. Situs. Aortic archview. Cardiac rhythm. Abdomen [...] byprimary OB provider unless otherwise specified by [facility]. Results forwarded to ordering provider so they can follow up with thepatient as necessary. Authorizing ProviderResult TypeResult StatusCorey Jackelyn DOIMG OB US PROCEDURES Final Result * ALL MISCELLANEOUS TEST (03/04/2025 12:49 PM EDT)ComponentValueRef RangeTest MethodAnalysis TimePerformed AtPathologist SignatureMISCELLANEOUS TESTCOMMENT. TBHComment: Test Ordered: [id number] Eijzwytak-1-Wxmlbfkgl, RBC Zlazfjtnd-8-Qmrkryrjw, RBC <0.3 mg/dL ML ?? Reference Range: . REFERENCE VALUE Reference interval (normal range): <=0.9 Therapeutic range: <=4.9 ADDITIONAL INFORMATION Liquid Chromatography-Tandem Mass Spectrometry (LC-MS/MS) This test was developed and its performance characteristics determined by [facility] in a manner consistent with CLIA requirements. This test has not been cleared or approved by the U.S. Food and Drug Administration. Performed at: ??ML - [facility] [address] [place], [place] ??[id number] Window Clerk: Kellen De La Paz PhD, Phone: ??[phone] Performed at: ??CB - [facility] [address] ??[id number] Window Clerk: Jose Rainey PhD, Phone: ??[phone] Specimen (Source)Anatomical Location / LateralityCollection Method / Volume Collection TimeReceived Time03/04/2025 12:49 PM EDT1 12:59 PM EDT Narrative CLINISYNC - 03/14/2025 5:09 PM EST [id number] Gxackzjuu-3-Qnmemgfjr, RBC Authorizing ProviderResult TypeResult StatusCorey Jackelyn DOCLINISYNCFinal Result Performing OrganizationAddressty/State/ZIP CodePhone Number * BOX TEST (02/12/2025 5:26 PM EDT)ComponentValueRef RangeTest MethodAnalysis TimePerformed AtPathologist SignatureBOX TEST SENT CLHFLWGBBETYUI1RLOZUTQXIZO1 02/12/2025TBHSpecimen (Source)Anatomical Location / LateralityCollection Method / VolumeCollection TimeReceived Time02/12/2025 5:26 PM EDT1 5:46 PM EDT Narrative CLINISYNC - 02/12/2025 5:59 PM EDT Authorizing ProviderResult TypeResult StatusCorey Jackelyn DOLAB BLOOD ORDERABLES Final ResultPerforming OrganizationAddEndless Mountains Health Systemsty/State/ZIP CodePhone Number * AFP, SERUM, OPEN SPINA BIFIDA (02/12/2025 5:26 PM EDT)ComponentValueRef Range Test MethodAnalysis TimePerformed AtPathologist SignatureRESULTSReport.TBHTEST RESULTS:*Screen Negative*.TBHGEST. AGE ON COLLECTION DATE18.0. weeksTBHGESTAT. AGE BASED ONUltrasound.TBHComment: ?18.0 on 02/12/2025 Recalculations are not recommended when gestational dating by LMP and ultrasound are within 10 days. MATERNAL AGE AT EDD35.7. yrTBHRACECaucasian.BTRNIBXXP575. lbsTBHINSULIN DEP DIABETESNo.TBHMULTIPLE GESTATIONTwins.TBHAFP FMYDX844.6. ng/mLTBHAFP MOM3.18.TBH OSBR RISK 1 IN304.TBHINTERPRETATIONComment.TBHComment: Interpretation: [...] Customer Services to discuss available options. ??The [place] [employer] recommends amniocentesis be offered to women age 35 and older. COMMENT:Comment.TBHComment: Kenia Schreiber, Ph.D., [facility] Director References: Available Upon Request. Multiples Of Median Cutoffs ?For AFP Elevations Palmer ?? 2.5 ? Black ?2.8 IDD ? 2.0 ? Twins ?4.5 ?Abbreviation Definitions IDD - Insulin Dep Diabetes OSBR - Open Spina Bifida Risk For further inquiries contact [facility] at [phone]. This test was developed and its performance characteristics determined by [employer]. It has not been cleared or approved by the Food and Drug Administration. Performed at: ??TG - [facility] [address] [place], [place] ??[id number] Window Clerk: Steven Bernard [facility], Phone: ??[phone] Specimen (Source)Anatomical Location / LateralityCollection Method / Volume Collection TimeReceived Time02/12/2025 5:26 PM EDT1 5:46 PM EDT Narrative CLINISYNC - 02/15/2025 1:06 AM EDT N N ULTRASOUND [id number] 0 18 N 2 172 N N N N N White/ Authorizing ProviderResult TypeResult StatusCorey Jackelyn DOLAB BLOOD ORDERABLES Final ResultPerforming OrganizationAddressCity/State/ZIP CodePhone Number [facility] * ALL VITAMIN B6 (02/12/2025 5:26 PM EDT)ComponentValueRef RangeTest Method Analysis TimePerformed AtPathologist SignatureVITAMIN B6, BUKGGI64.43.4 - 65.2 ug/LTBHComment: This test was developed and its performance characteristics determined by [facility]. It has not been cleared or approved by the Food and Drug Administration. Deficiency: <3.4 ? Marginal: ?3.4 - 5.1 Adequate: >5.1 Performed at: ?? - [facility] ??[id number] Window Clerk: Dea Amaya MD, Phone: ??[phone] Specimen (Source)Anatomical Location / LateralityCollection Method / Volume Collection TimeReceived Time02/12/2025 5:26 PM EDT1 5:46 PM EDT Narrative CLINISYNC - 02/17/2025 4:09 PM EDT Authorizing ProviderResult TypeResult StatusCorey Jackelyn DOCLINISYNCFinal Result Performing OrganizationAddressCity/State/ZIP CodePhone Number [facility]AT[facility] from Last 3 Months Insurance Care Teams Team MemberRelationshipSpecialtyStart DateEnd Date Rebecca Rizvi MD [address] [place] [phone] [facility]01/03/25
--- OUTSIDE RECORDS SUMMARY | 2025-04-26 15:06 | XMS_ITS | Encounter Summary ---
Author Organization [facility] Address [address] [place] [address] Care Team Providers Care Rn Oncology Research Name Role Phone Rebecca Rizvi MD Primary Care Provider [phone] Encounter Details DateTypeDepartmentCare Team (Latest Contact Info)Rsqxkrfvhhr50/08/2025Telephone [facility] [address] [place] [address] Janett Zheng PA [address] [facility] [address] [place], [facility] Social History Tobacco UseTypesPacks/DayYears UsedDateSmoking Tobacco: Never Assessed Estimated Date of RhvnfxmbIdgcrzlkKoe47/11/2026Based on UltrasoundSex and Gender InformationValueDate RecordedSex Assigned at BirthNot on fileLegal SexFemale 07/20/2022 6:43 PM EDTGender IdentityNot on fileSexual OrientationNot on file documented as of this encounter Miscellaneous Notes * Telephone Encounter - Yaneli Avina LPN - 04/14/2025 5:05 PM EST Patient called asking if she can get a refill on medication tylenol. Script sent. documented in this encounter Plan of Treatment DateTypeDepartmentCare Team (Latest Contact Info)Wlhzdvtfdfj98/31/2025 10:20 AM ESTRoutine [facility] [address] [facility] [place] [address] Jaylin Chung, NATHANIEL [address] [facility] [place] [address] 05/21/2025 3:50 PM ESTRoutine [facility] [address] [facility] [place] [phone] Rene Hayden DO [address] [facility] [address] [place] [address] documented as of this encounter Visit Diagnoses Diagnosis Nonintractable headache, unspecified chronicity pattern, unspecified headache type documented in this encounter Care Teams Team MemberRelationshipSpecialtyStart DateEnd Date Rebecca Rizvi MD [facility] [place] [address] PCP - GeneralFamily Medicine01/03/25documented as of this encounter
--- OUTSIDE RECORDS SUMMARY | 2025-04-26 15:06 | XMS_ITS | Encounter Summary ---
Author Organization [facility] Address [address] [place] [address] Care Team Providers Care Air Twister Winder Name Role Phone Rebecca Rizvi MD Primary Care Provider [phone] Reason for Visit * ReasonOnset DateCommentsMed Uhwqcg0704/15/2025 Encounter Details DateTypeDepartmentCare Team (Latest Contact Info)Jlkencocxrf79/09/2025Refill [facility] [address] [place] [phone] Sosa Funes MA [address] [place] [address] Heartburn during in second trimester ([facility]) Social History Tobacco UseTypesPacks/DayYears UsedDateSmoking Tobacco: Never Assessed Estimated Date of WadlspiyCawvcwqaPdx50/11/2026Based on UltrasoundSex and Gender InformationValueDate RecordedSex Assigned at BirthNot on fileLegal SexFemale 07/20/2022 6:43 PM EDTGender IdentityNot on fileSexual OrientationNot on file documented as of this encounter Miscellaneous Notes * Telephone Encounter - Sosa Funes MA - 04/15/2025 1:43 PM EST Pt in need of refill for pepcid. Rx was sent [facility]. documented in this encounter Plan of Treatment DateTypeDepartmentCare Team (Latest Contact Info)Dhrjkdmshjh43/31/2025 10:20 AM ESTRoutine [facility] [address] [place] [address] Jaylin Chung, CREDIT UNION EXAMINER [address] [place] [address] 05/21/2025 3:50 PM ESTRoutine [facility] [address] [place] [address] Rene Hayden DO [address] [facility] [address] [place] [address] documented as of this encounter Visit Diagnoses Diagnosis Heartburn during in second trimester ([facility]) documented in this encounter Care Teams Team MemberRelationshipSpecialtyStart DateEnd Date Rebecca Rizvi MD [address] [place] [phone] PCP - GeneralFamily Medicine01/03/25documented as of this encounter
--- OUTSIDE RECORDS SUMMARY | 2025-04-26 15:06 | XMS_ITS | Clinical Summary ---
Author Organization [facility] Address [address] [place] [address], [address] [place] [address] Care Team Providers Care Author Agent Name Role Phone Neto Karen HILARION - CAR WASH SUPERVISOR Primary Care Provider Unavailable Allergies No [...] InformationValueDate RecordedSex Assigned at BirthNot on fileLegal AxsUtiwac92/28/2017 11:11 AM ESTGender IdentityNot on fileSexual OrientationNot on file Last Filed Vital Signs Vital SignReadingTime TakenCommentsBlood Fqgjmxxf316/7601/ 3:41 PM EST Iagdg5653/ 3:41 PM SKLPbjxlwnjfgk84.4 ??C (97.6 ??F)02/19/2020 1:24 PM EDTRespiratory Rate--Oxygen Lirdrrahwk202%06/30/2017 10:28 AM ESTInhaled Oxygen Concentration--Bjcxoq65.7 kg (136 lb)06/03/2020 3:41 PM JSLJxtavm170 cm (5' 3 ) 06/30/2017 10:28 AM ESTBody Mass Index24.0906/30/2017 10:28 AM EST Plan of Treatment Not on file Insurance Care Teams Team MemberRelationshipSpecialtyStart DateEnd Date Karen Duque APRN - CAR WASH SUPERVISOR PCP - GeneralNurse Hnmodqtiwvvv71/19/17
--- OUTSIDE RECORDS SUMMARY | 2025-04-26 15:06 | XMS_ITS | Encounter Summary ---
Author Organization [facility] Address [address] [place] [address] Care Team Providers Care Rat Exterminator Name Role Phone Rebecca Rizvi MD Primary Care Provider [phone] Encounter Details DateTypeDepartmentCare Team (Latest Contact Info)Viqxcytqliy56/17/2025amboo flowsheet [facility] [address] [place] [address] Rene Hayden DO [address] [place], [place] [address] Social History Tobacco UseTypesPacks/DayYears UsedDateSmoking Tobacco: Never Assessed Estimated Date of AegreidkVhvpqkclNtw35/11/2026Based on UltrasoundSex and Gender InformationValueDate RecordedSex Assigned at BirthNot on fileLegal SexFemale 07/20/2022 6:43 PM EDTGender IdentityNot on fileSexual OrientationNot on file documented as of this encounter Plan of Treatment DateTypeDepartmentCare Team (Latest Contact Info)Vyoedsimgdw83/31/2025 10:20 AM ESTRoutine [facility] [address] [place] [address] Jaylin Chung NP [address] [place] [address] 05/21/2025 3:50 PM ESTRoutine [facility] [address] [place] [address] Rene Hayden, [address] [place] [address] documented as of this encounter Visit Diagnoses Not on filedocumented in this encounter Care Teams Team MemberRelationshipSpecialtyStart DateEnd Date Rebecca Rizvi MD [address] [place] [phone] PCP - GeneralFamily Medicine01/03/25documented as of this encounter
--- OUTSIDE RECORDS SUMMARY | 2025-04-26 15:06 | XMS_ITS | Patient Health Record ---
Author Organization [facility] Address [address] [place] [address] Care Team Providers Care Drilling And Production Superintendent Name Role Phone Dr. Howard Arriaga Primary Care Provider [phone] Erin Guallpa [phone] Reason For Referral No Information Encounters Encounter Location Date Provider Diagnosis [facility] [address] [place] [address] 03/14/2025 Erin Wheeler Acute gingivitis, plaque induced K05.00 ; Other dental procedure status Z98.818 and Encounter for dental examination and cleaning with abnormal findings Z01.21 [facility] [address] [place] [address] 08/22/2024 Erin Wheeler Acute gingivitis, plaque induced [...] 09/26/2025 11:15:00 AM, [address] [place], [address], Insurance Providers Payer Name Payer Address Payer Phone Subscriber Number Group Number Insured Name Patient Relationship to Insured Coverage Start Date Coverage End Date Dental [employer] [place] Medicaid [address] [address] [place] [phone] [id number] BRENDA LOGAN Self - patient is the insured Dental Wrap [facility] [address] [place] [id number] LOGANlf - patient is the [id number]
[2025-04-26 15:35] VITALS: BP 102/57; PULSE 95
--- NOTE | 2025-04-26 15:52 | US_ITS ---
[address] [address] Patient Name: BRENDA LOGAN MRN: [id number] date: 1990 Sex: F Assigned Patient Location: [facility] Current Patient Location: [facility] Accession/Order Number: [id number] Exam Date: 04/26/2025 16:29 Report Date: 04/26/2025 17:17 At the request of: MAMADOU TOSCANO DO Procedure: US OB placenta Placental/cervical ultrasound. Extremities for exam: Bleeding and leaking fluid. Twin with known demise of baby A. COMPARISON: None. FINDINGS: Transabdominal imaging of the gravid uterus was obtained. Cervical length measures 4.7 cm without evidence of funneling. Placenta is posterior location without focal abnormality. heart rate for baby B is 132 bpm. US/US OB placenta IMPRESSION: No focal placental abnormality. Normal cervical length. Impression dictated by: Howard Huang Jr., D.O. 04/26/2025 5:17 PM Dictation Location: [facility] Electronically authenticated by: [id number] Y Date: 04/26/2025 17:17
--- NOTE | 2025-04-26 15:52 | US_ITS ---
[address] [address] Patient Name: BRENDA LOGAN MRN: [id number] date: 1990 Sex: F Assigned Patient Location: [facility] Current Patient Location: [facility] Accession/Order Number: [id number] Exam Date: 04/26/2025 16:20 Report Date: 04/26/2025 17:17 At the request of: MAMADOU TOSCANO DO Procedure: US OB placenta Placental/cervical ultrasound. Extremities for exam: Bleeding and leaking fluid. Twin with known demise of baby A. COMPARISON: None. FINDINGS: Transabdominal imaging of the gravid uterus was obtained. Cervical length measures 4.7 cm without evidence of funneling. Placenta is posterior location without focal abnormality. heart rate for baby B is 132 bpm. US/US OB cervical length IMPRESSION: No focal placental abnormality. Normal cervical length. Impression dictated by: Howard Huang Jr., D.O. 04/26/2025 5:17 PM Dictation Location: [facility] Electronically authenticated by: [id number] Y Date: 04/26/2025 17:17
[2025-04-26 16:00] LABS: Glucose Urine UA NEGATIVE (NEGATIVE)
[2025-04-26 16:23] LABS: Cast Seen? NONE SEEN #/LPF (NONE SEEN); Crystals Seen? None Seen #/HPF (None Seen); Urine Culture Indicated NO
--- NOTE | 2025-04-26 18:20 | PC.NURSE ---
dental technician instructor at bedside. Twin A (nonviable) with PAMELA 3.3 by 6 cm. Twin B with PAMELA 8.9 by 5.7 with no abnormalities visualized in placenta. Cervical length is 5.1cm per tech. RN reviews UA and Amnisure results which are positive with physician on phone and with pt. Pt has had no drainage since arriving
--- NOTE | 2025-04-26 18:24 | PC.NURSE ---
1720 Pt takes supper. Denies ctxs. Dr Hayden calls in with additional plan of care, reviewed same with pt.
--- NOTE | 2025-04-26 19:11 | P.OBHP_ITS ---
OB - H&P: HPI History of Present Illness Chief complaint: LEAKING BLOOD : 4 Para: 3 Narrative: 34 yo at 28 4/7wks twin gestation with reduction at 24wks dt multiple congential defects presented with concerns for leakage of fluid, denies ctxns, states had some pink discharge when wiping, neg urinary symptoms, pt has ho hep c, hsv sve /high History of Present Dating criteria: LMP confirmed by 2nd trimester US care: good care Ultrasounds: normal 1st trimester US complications: multiple complications comment: reduction Medical complications OB: none Labs Blood type: 0 (-) negative Rubella: immune RPR/VDLR: nonreactive GBS status: unknown HBsAG: negative Review of Systems ROS Status of ROS: 10 or more systems reviewed and unremarkable except as noted in history and below Meds Home Medications and Allergies Allergies Allergy/AdvReac Type Severity Reaction Status Date / Time No Known Drug Allergies Allergy Verified 04/26/25 18:06 Exam Constitutional Vital Signs, click to edit/add: Last Vital Signs Pulse 95 H 04/26/25 15:35 BP 102/57 04/26/25 15:35 Documenting provider has reviewed patient's vital signs: yes Common normals: no apparent distress Respiratory Common normals: normal respiratory effort and clear to auscultation bilaterally Cardio Common normals: regular rate and regular rhythm GI Common normals: Normal to inspection, nondistended, normoactive bowel sounds present Extremity Common normals: no clubbing, cyanosis or edema and no calf tenderness Results Labs Labs: Urine 04/26/25 Range/Units 15:25 Urine Color Yellow (YELLOW) Urine Clarity Clear (CLEAR) Urine pH 6.0 (5.0-9.0) Ur Specific [place] 1.020 (1.005-1.025) Urine Protein Negative (NEG/TRACE) mg/dL Urine Glucose (UA) Negative (NEGATIVE) mg/dL OB - A/P Assessment and Plan (1) Intrauterine : (2) Twin gestation in third trimester: (3) reduction of multiple fetuses reduced to single fetus in second trimester: (4) HSV (herpes simplex virus) infection: Plan iup at 28 4/7wks, twin gestation with reduction at 24wks, hep c, hsv- amnisure positive, sve 1/th/high, us shows cl 5.1, twin a lilian 3.3x6.0m twin b 8.9x 5.7, will start iv abx, considering magnesium once discussed with mfm, celestone given Additional Plan Induction method: none Plan: other
[2025-04-26] MEDS: AMPICILLIN SODIUM 2,000 MG in 0.9 % SODIUM CHLORIDE 100 ML 200 MG IV (19:15)
[2025-04-26] MEDS: 0.9 % SODIUM CHLORIDE 1,000 ML 125 ML IV (19:19)
[2025-04-26] MEDS: BETAMETHASONE ACE/BETAMETHASONE SOD PHOS 30 MG/5 ML 12 MG IM (19:20)
--- NOTE | 2025-04-26 19:26 | PC.NURSE ---
184 iv begun 20 gauge in lt hand, cbc drawn, ns bolus begun, given ampicillin and celestone. Reviewed plan of care, monitor resumed. Denies ctxs or drainage, states I have just had the [place] still that I've been having.
[2025-04-26 19:27] LABS: Hematocrit 33.1 % (36.0-48.0); Hemoglobin 11.4 g/dL (12.0-16.0); Immature Granulocytes Abs Auto 0.13 10^3/uL (0.00-0.03); Immature Granulocytes Pct Auto 1.4 % (0.0-0.5); Lymphocytes Absolute Auto 1.9 10^3/uL (1.2-3.8); Mean Corpuscular HGB Conc 34.4 g/dL (29.9-35.2); Mean Corpuscular Hemoglobin 30.2 pg (26.7-34.0); Mean Corpuscular Volume 87.8 fL (81.0-99.0); Platelet Count 260 10^3/uL (150-450); Red Blood Count 3.77 10^6/uL (4.20-5.40); White Blood Count 9.1 10^3/uL (4.0-11.0)
[2025-04-26 19:51] VITALS: BP 120/68; PULSE 98; TEMP 36.8
[2025-04-26] MEDS: MAGNESIUM-BOLUS FROM THE BAG- 40 GM/1,000 ML IV.SOLN IV (19:51)
[2025-04-26 19:56] VITALS: BP 124/70; PULSE 100
[2025-04-26 20:02] VITALS: BP 118/74; PULSE 110
[2025-04-26 20:10] VITALS: BP 128/72; PULSE 104; TEMP 36.8
[2025-04-26] MEDS: MAGNESIUM SULFATE IN WATER 40 GM/1,000 ML IV.SOLN IV (20:14)
[2025-04-26 21:09] VITALS: BP 122/67; PULSE 100; TEMP 36.6
== END 2025-04-26 22:30 | disposition short-term general hospital (02) ==
LOC: FBCO 15:03 → FBC 15:06
PROVIDERS: PCP Nurse Practitioner Family; Visit Provider Obstetrics & Gynecology
DX: O26.893 Other specified pregnancy related conditions, third trimester (principal); Z3A.28 28 weeks gestation of pregnancy
CPT/HCPCS: 36415; 59025; 76815; 76817; 81001; 84112; 85025; 96372; 96374; 96375; 96376; J0290; J0702; J3475

== ENCOUNTER 2025-04-30 07:47 | Outpatient (OUT) | payer MEDICAID, SELFPAY ==
--- OUTSIDE RECORDS SUMMARY | 2021-03-19 08:15 | XMS_ITS | Continuity of Care Document ---
Author Organization [facility] Address [address] [place] [address] Phone Care Team Providers Care Industrial Technician Name Role Phone BaJaylen Strauss Unavailable Unavailabl e Procedures Procedure Date PSYTX PT&/FAMILY 60 MINUTES PSYTX PT&/FAMILY 60 MINUTES PSYTX PT&/FAMILY 60 MINUTES PSYCH DIAGNOSTIC EVALUATION Advance Directives Directive Yes / No Effective Date File Name No Information Encounters Encounter Description Practice Location Reason(s) For Visit Diagnoses Date Provider Providers Copied on Encounter PSYTX PT&/FAMILY 60 MINUTES [facility], [address] [place] [address], [id number], tel:[phone] Behavorial Health Adjustment disorder with mixed anxiety and depressed mood Baus Psy D Sherriealynne. [address] [place] [address], [address], . tel:[phone] PSYTX PT&/FAMILY 60 MINUTES [facility], [address] [place] [address], [id number], tel:[phone] Behavorial Health Adjustment disorder with mixed anxiety and depressed mood [facility] Sherriealynne. [address] [place] [address], [id number], . tel:[phone] PSYTX PT&/FAMILY 60 MINUTES [facility], [address] [place] [address], [id number], tel:[phone] Behavorial Health Adjustment disorder with mixed anxiety and depressed mood Samir York. [address] [place], [address], [place]. tel:[phone] PSYCH DIAGNOSTIC EVALUATION [facility], [address] [place], [place], [id number], [place] tel:[phone] [facility] Adjustment disorder with mixed anxiety and depressed mood Samir Logan Sherrierianna. [address] [place], [address], [place]. tel:[phone] Family History Family Member Type Diagnosis Age At Onset No Information Payers Payer name Insurance type Covered democrat ID Authoriza tion(s) [place] [id number] Medicaid [facility] [id number] Social History Type Description Quantity Date Captured Comments Sex Female Smoking Status No Information Sexual Orientation Straight or heterosexual Gender Identity Female Chief Complaint And Reason For Visit No Information Reason For Referral Reason For Referral No Information History Of Present Illness Encounter Date Complaint History Of Prese nt Illness No Information Functional Status Date Functional Assessmen t No Information Instructions Date Instruction Additional Infor mation No Information Assessments Type Assessment Date assessment Adjustment disorder with mixed a nxiety and depressed mood Patient Care Teams Name Effective Dates (start - stop) Status Members No Information
--- OUTSIDE RECORDS SUMMARY | 2025-04-23 13:40 | XMS_ITS | Encounter Summary ---
Author Organization [facility] Address [address] [place] [address] Care Team Providers Care Alignment Specialist Name Role Phone Rebecca Rizvi MD Primary Care Provider [phone] Reason for Visit * ReasonCommentsRoutine Visit Encounter Details DateTypeDepartmentCare Team (Latest Contact Info)Fdfqjnodzoc10/17/2025 1:40 PM ESTRoutine [facility] [address] [address] Rene Hayden DO [address] [facility] [place] [address] Third trimester ([facility]); 28 weeks gestation of ([facility]); Multigravida of advanced maternal age in second trimester ([facility]); Twin following selective reduction, antepartum ([facility]) Social History Tobacco UseTypesPacks/DayYears UsedDateSmoking Tobacco: Never Assessed Estimated Date of DibltrhrDrkisyiwWfm08/11/2026Based on UltrasoundSex and Gender InformationValueDate RecordedSex Assigned at BirthNot on fileLegal SexFemale 07/20/2022 6:43 PM EDTGender IdentityNot on fileSexual OrientationNot on file documented as of this encounter Last Filed Vital Signs Vital SignReadingTime TakenCommentsBlood Khboycdi080/7004/23/2025 1:54 PM EST Pulse--Temperature--Respiratory Rate--Oxygen Saturation--Inhaled Oxygen Concentration--Avmmyz21.9 kg (185 lb)04/23/2025 1:54 PM ESTHeight--Body Mass Index--documented in this encounter Progress Notes * Malena Betts, CAP LINING MACHINE OPERATOR - 04/23/2025 1:40 PM EST Reason for Appointment: Patient ID: Ese Badillo is a 34 y.o. female who presents for Routine Visit Patient presents today for Return OB appointment. MEDICATIONS Current Outpatient Medications Medication Instructions acetaminophen (Tylenol) 160 MG/5ML liquid TAKE 20.3 ML BY MOUTH EVERY 6 HOURS NEEDED FOR HEADACHES FOR UP TO 10 DAYS Strength: 160 MG/5ML biotin 5 mg, Daily RT DSS 100 mg, Oral, 2 times daily famotidine (PEPCID) 40 mg, Oral, Every morning Vit-Fe Fumarate-FA ( Vitamins) 28-0.8 MG tablet 1 tablet, Oral, Daily ALLERGIES No Known Allergies PROBLEMS Active Ambulatory Problems Diagnosis Date Noted Multigravida of advanced maternal age in second trimester ([facility]) 03/13/2025 H/O LEEP 03/13/2025 HSV (herpes simplex virus) infection 03/13/2025 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 Social History Tobacco Use Smoking status: Not on file Smokeless tobacco: Not on file Substance Use Topics Alcohol use: Not on file Drug use: Not on file FAMILY HISTORY No family history on file. SURGICAL HISTORY Past Surgical History: Procedure Laterality Date CERVICAL BIOPSY W/ LOOP ELECTRODE EXCISION REVIEW OF SYSTEMS Review of Systems: Review of Systems Constitutional: Negative. HENT: Negative. Eyes: Negative. Respiratory: Negative. Cardiovascular: Negative. Gastrointestinal: Negative. Genitourinary: Negative. Musculoskeletal: Negative. Skin: Negative. Neurological: Negative. All other systems reviewed and are negative. Hematological: Negative. Endocrine: Negative. Allergic/Immunologic: Negative. OBJECTIVE Objective: Physical Exam Constitutional: Appearance: Normal appearance. She is well-developed. Cardiovascular: Rate and Rhythm: Normal rate and regular rhythm. Pulmonary: Effort: Pulmonary effort is normal. Breath sounds: Normal breath sounds. Abdominal: General: Bowel sounds are normal. There is no distension. Palpations: Abdomen is soft. Tenderness: There is no abdominal tenderness. There is no guarding or rebound. Musculoskeletal: General: No swelling. Normal range of motion. Right lower leg: No edema. Left lower leg: No edema. Neurological: Mental Status: She is alert and oriented to person, place, and time. Skin: General: Skin is warm and dry. Psychiatric: Mood and Affect: Mood normal. Behavior: Behavior normal. Vitals and nursing note reviewed. Exam conducted with a machine oiler present. Vitals: There is no height or weight on file to calculate BMI. BP: 110/70 No LMP recorded. Patient is . Assessment/Plan ICD-10-CM 1. Third trimester ([facility]) Z34.93 2. 28 weeks gestation of ([facility]) Z3A.28 POCT urinalysis dipstick manually resulted 3. Multigravida of advanced maternal age in second trimester ([facility]) O09.522 4. Twin following selective reduction, antepartum ([facility]) O30.009 O31.30X0 Assessment/Plan Return OB: Patient presents today for a routine obstetrics appointment. Patient is currently 28w0d . Patient states she is doing well but has complaints of being tired due to current . Patient has verbalizes frequent movement. labor precautions was discussed/given and patient was instructed to perform kick counts three times a day. Orders Placed This Encounter Procedures POCT urinalysis dipstick manually resulted Follow Up: Patient is to return to office in 2 week for routine OB appointment. Documented by Malena Betts LPN on behalf of: Rene Hayden DO documented in this encounter Plan of Treatment DateTypeDepartmentCare Team (Latest Contact Info)Bsnmpkihqqq90/31/2025 10:20 AM ESTRoutine [facility] [address] [address] Jaylin Chung NP [address] [facility] [place] [phone] 05/21/2025 3:50 PM ESTRoutine [facility] [address] [place] [address] Rene Hayden, [address] [place] [address] documented as of this encounter Procedures Procedure NamePriorityDate/TimeAssociated DiagnosisCommentsPOCT URINALYSIS NEDJJUWACplhygr07/17/2025 2:02 PM EST 28 weeks gestation of ([facility]) documented in this encounter Results * (ABNORMAL) POCT urinalysis dipstick manually resulted (04/23/2025 2:02 PM EST) ComponentValueRef RangeTest MethodAnalysis TimePerformed AtPathologist SignatureColor, UAYellowClarity, UAClearGlucose, UANegativeNegative - 2000(110) ++++ mg/dLBilirubin, UANegativeNegative - 4(70) +++ mg/dLKetones, UA NegativeNegative - 160(16) ++++ mg/dLSpec Grav, UA1.0101 - 1.03Blood, UA NegativeNegative - 50 Masood/mcLpH, UA6.05 - 9Protein, UATraceNegative - 2000(20) ++++ mg/dLUrobilinogen, UA1.00.2 - 12 mg/dLLeukocytes, UANegativeNegative - 500+++ Albin/mcLNitrite, UANegativeNegative - PositiveSpecimen (Source) Anatomical Location / LateralityCollection Method / VolumeCollection Time Received OsuwPdlbw53/17/2025 2:02 PM EST Narrative Authorizing ProviderResult TypeResult StatusCorey Jackelyn DOPOINT OF CARE TEST ENTER/EDIT ORDERABLESFinal Result documented in this encounter Visit Diagnoses Diagnosis Third trimester ([facility]) state, incidental 28 weeks gestation of ([facility]) Multigravida of advanced maternal age in second trimester ([facility]) Twin following selective reduction, antepartum ([facility]) documented in this encounter Care Teams Team MemberRelationshipSpecialtyStart DateEnd Date Rebecca Rizvi MD [address] [place] [phone] PCP - GeneralFamily Medicine01/03/25documented as of this encounter
--- OUTSIDE RECORDS SUMMARY | 2025-04-26 23:50 | XMS_ITS | Encounter Summary ---
Author Organization [facility] [place] tem Address [facility] [id number] [address] 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 Role Phone Rebecca Rizvi [employer]CH[employer] Primary Care Provider Reason for Referral * Misc (Routine) - Pending ReviewSpecialtyDiagnoses / ProceduresReferred By ContactReferred To Contact Procedures Discharge Follow-Up [place] [address] Phone: tel: fax: Referral IDStatusReasonStart DateExpiration DateVisits RequestedVisits [id number] Reason for Visit * ReasonCommentsLEAKAGE/LOSS OF FLUID * Auth/CertSpecialtyDiagnoses / ProceduresReferred By ContactReferred To Contact Diagnoses Ruptured membranes Escobar Cook MD [facility], [place] [address] Phone: tel: fax: Referral IDStatusReasonStart DateExpiration DateVisits RequestedVisits [id number] Encounter Details DateTypeDepartmentCare Team (Latest Contact Info)Kmpyzizmjsx25/20/2025 11:50 PM EST - 04/27/2025 11:24 PM ESTHospital Encounter [facility] [address] [place] [id number] Escobar Cook MD [address] [facility], [address] [address] premature rupture of membranes (PPROM) with unknown onset of labor (Primary Dx); premature rupture of membranes in third trimester, unspecified duration to onset of labor Discharge Disposition: Left Against Medical Advice or Discontinued Care Social History Tobacco UseTypesPacks/DayYears UsedDateSmoking Tobacco: FormerCigarettes0.58.1 Started: 04/05/2017Smokeless Tobacco: NeverAlcohol UseStandard Drinks/Week CommentsNot Currently3 (1 standard drink = 0.6 oz pure alcohol)occasionalAHC UtilitiesAnswerDate RecordedIn the past 12 months has the [employer], gas, oil, or water [employer] threatened to shut off services in your home?No03/28/2024Overall Financial Resource Strain (CARDIA)AnswerDate RecordedHow hard is it for you to pay for the very basics like food, housing, medical care, and heating?Not hard at all05/07/2024HQ-2AnswerDate RecordedTotal Qbiqb420PRAPARE - TransportationAnswerDate RecordedIn the past 12 months, has lack of transportation kept you from medical appointments or from getting medications?No 03/28/2024In the past 12 months, has lack of transportation kept you from meetings, work, or from getting things needed for daily living?No03/28/2024 [place] Depression ScaleAnswerDate RecordedEdinburgh Depression Scale Khyan713The thought of harming myself has occurred to [...] of a household?No4Childcare AnswerDate RecordedDo problems getting child welfare director make it difficult for you to work or study?No05/07/2024EmploymentAnswerDate RecordedEmploymentUnknown 10/15/2018Hunger ScreeningAnswerDate RecordedWithin the past 12 months we worried whether our food would run out before we got money to buy more.Never True03/11/2025Within the past 12 months the food we bought just didn't last and we didn't have money to get more.Never True03/11/2025Purpose - LifeAnswerDate RecordedPurpose and direction in qfrmEharsca99/10/2021Estimated Date of OvwmwlvoVtpzkacvLyb56/11/2026Based on UltrasoundSex and Gender InformationValue Date RecordedSex Assigned at RqixmZwbeav31/02/2022 7:15 PM EDTLegal SexFemale 12/09/2014 2:44 PM EDTGender NgobjeiuKztdpr07/02/2022 7:15 PM EDTSexual EnnbbjwgghtGlgooowi63/02/2022 7:15 PM EDTdocumented as of this encounter Last Filed Vital Signs Vital SignReadingTime TakenCommentsBlood Gtmcyybp949/6004/27/2025 7:23 PM EST Zxshf131004/27/2025 7:23 PM ZTDPylwwrkhtsu54.7 ??C (98.1 ??F)04/27/2025 9:34 PM ESTRespiratory Npqa690506/28/2024 7:23 PM ESTOxygen Dfjugxampl10%04/27/2025 9:00 AM ESTInhaled Oxygen Concentration--Weight--Height--Body Mass Index--documented in this encounter Functional Status * HEENTQuestionAnswerDate of AssessmentAuthorHEENT (WDL)WDL106/28/2024 7:00 PM Shanika Mcginnis RN * IP Hunger/Food Insecurity ScreeningQuestionAnswerDate of AssessmentAuthor Hunger Screening Complete?Yes04/27/2025 12:24 AM Kenia Barton RNPt. Eligible for Food / QyfrusxBz55/21/2025 12:24 AM Kenia Barton RNIf Eligible: Received Food BoxNot Offered to Tvnjndt7104/27/2025 12:24 AM Kenia Rankin RN * Vaginal DischargeAnswerDate of AiqcdvkoidKhsujyXqfpn17/21/2025 7:00 PM Shanika Bearden RN * Preeclampsia AssessmentAnswerDate of SodnnxgffiSpjfibFZM23/21/2025 7:00 PM Shanika Bearden RN * ActivityQuestionAnswerDate of AssessmentAuthorActivity PerformedResting in bed 04/27/2025 7:00 AM Kaleigh Mora RNActivity ResponseTolerated well 04/27/2025 7:00 AM Kaleigh Mora RNRange of MotionActive;All extremities 04/27/2025 7:00 AM Kaleigh Mora RNToileting AssistanceAmbulate to kfhujzqv03/21/2025 7:00 AM Kaleigh Mora RNRepositionedTurns self 04/27/2025 7:00 AM Kaleigh Mora RNTransport WufbfiWilkwgpxyj45/21/2025 7:00 AM Kaleigh Mora RNBed PositionSelf fmegwfkos25/21/2025 7:00 AM Kaleigh Byers RN * Deterioration IndexQuestionAnswerDate of AssessmentAuthorDeterioration Index (30-60 mod; 60+ high)16.19106/28/2024 11:15 PM Raudel, Clindoc * ProgesteroneQuestionAnswerDate of AssessmentAuthorDid patient receive Progesterone this ?No04/27/2025 12:26 AM Kenia Barton RNDid the mother have a previous fqagizztWw25/21/2025 12:26 AM Kenia Barton RN * SteroidQuestionAnswerDate of AssessmentAuthorDid patient receive Steroids prior to admission for lung qohbsbaqPnq20/21/2025 12:26 AM Kenia Barton RNDate last dose of Steroid was jdgwo4774987/21/2025 12:26 AM Kenia Barton RNTotal number of doses uduezrem853/21/2025 12:26 AM Kenia Barton RN * Human Trafficking ScreenQuestionAnswerDate of AssessmentAuthorHuman Trafficking ScreenNo present uirzrrds74/21/2025 12:20 AM Kenia Barton RN * PPH Admission and Labor Risk FactorsQuestionAnswerDate of AssessmentAuthor Prior , uterine surgery, other multiple mbbqdsdasvsf104/21/2025 8:00 PM Shanika Mcginnis RNGreater than 4 prior vaginal bqemxk216 8:00 PM Shanika Mcginnis RNLarge myomas/fibroids > 5cu185 8:00 PM Shanika Mcginnis RNPlacenta Previa or low lying nhlunbvu691/21/2025 8:00 PM Shanika Mcginnis RNSuspected placenta accreta or accreta njopvwod006/21/2025 8:00 PM Shanika Mcginnis RNKnown esazzkneiopu454/21/2025 8:00 PM Shanika Mcginnis RN Abruption or active bleeding greater than bloody zxlk158 8:00 PM Shanika Bearden RNStillbirth (IUFD) - Current fipu698 8:00 PM Shanika Mcginnis RNKOAhcdgulnsplxqhme114/21/2025 8:00 PM Shanika Mcginnis RN Prolonged oxytocin (greater than 24 hours) 8:00 PM Shanika Mcginnis RNProlonged 2nd stage of meyii641 8:00 PM Shanika Mcginnis RNDiagnosis of Cvjpalzaxnetsp668/21/2025 8:00 PM Shanika Mcginnis RNDiagnosis of Xhahomghecrl371/21/2025 8:00 PM Shanika Mcginnis RNDiagnosis of HELLP Syndrome 8:00 PM Shanika Mcginnis RNPrevious hemorrhage0 04/27/2025 8:00 PM Shanika Mcginnis RN * Heart RateQuestionAnswerDate of AssessmentAuthorMonitorOther (Comment) 04/27/2025 7:00 AM Kaleigh Mora RNMultiple ?Yes04/27/2025 1:13 AM Kenia Barton RN * Uterine ActivityQuestionAnswerDate of AssessmentAuthorResting ToneSoft 04/27/2025 11:00 PM Shanika Mcginnis RNDurationna04/27/2025 11:00 PM Shanika Mcginnis RNCtx per 10 cnie21706/28/2024 11:00 PM Shanika Mcginnis RNMonitorToco 04/27/2025 11:00 PM Shanika Mcginnis RNIntensityNot honfybotmw56/21/2025 11:00 PM Shanika Mcginnis RN * DTRQuestionAnswerDate of AssessmentAuthorDeep Tendon Reflex Response+2 04/27/2025 7:00 PM Shanika Mcginnis RNClonusAbsent04/27/2025 7:00 PM Shanika Mcginnis RN * OB InterventionsQuestionAnswerDate of AssessmentAuthorOther (comment)pt very upset, does not want to be on monitor at this time04/27/2025 10:12 AM Kaleigh Mora, ZRUcraelaewjjJqhiltk76/21/2025 10:42 PM Shanika Mcginnis, RNFetal MonitorUltrasound pvllaiin72/21/2025 10:42 PM Shanika Mcginnis RNResponse Resident at pphcwmv9204/27/2025 5:24 AM Kenia Barton RN * Pneumonia Vaccine Screen ages 19 to 64QuestionAnswerDate of AssessmentAuthor Are any of the following pneumococcal vaccine contraindications present? Patient refuses pneumonia zsioeoc3004/27/2025 12:21 AM Kenia Barton RN Pneumococcal Vaccine Decision:STOP - No Pneumococcal vaccine is indicated 04/27/2025 12:21 AM Kenia Barton RN * Substance Abuse ScreenQuestionAnswerDate of AssessmentAuthorDo your parents have problems with alcohol or drug use?Yes04/27/2025 12:22 AM Kenia Rankin RNDo any of your friends have problems with alcohol or drug use?No04/27/2025 12:22 AM Kenia Barton RNDoes your partner or someone that lives in your household have a problem with alcohol or drug use? No04/27/2025 12:22 AM Kenia Barton RNPrior to did you have problems with alcohol or drug use? (past)No04/27/2025 12:22 AM Kenia Barton RNIn the past month, did you drink beer, wine or liquor, or use other drugs? ()No04/27/2025 12:22 AM Kenia Barton RNThank you for sharing. Sometimes when others close to you have a problem with substance use, it canmake it hard for a person to not join in as well. Has this been a concern for you?No04/27/2025 12:22 AM Kenia Barton RNDoes patient meet requirement for biologic testing?No04/27/2025 12:22 AM Kenia Barton RN * Heart Rate Fetus BQuestionAnswerDate of AssessmentAuthorFHR Rhythm B Glrkxjt3104/27/2025 11:00 PM Shanika Mcginnis RNAcceleration BAccelerations wgnoxdo7504/27/2025 11:00 PM Shanika Mcginnis RNDeceleration BNone04/27/2025 11:00 PM Shanika Mcginnis RNCharacteristics KXboetf8904/27/2025 11:00 PM Shanika Bearden RNMonitor Fetus BExternal US04/27/2025 11:00 PM Shanika Mcginnis RNBaseline Variability BModerate (Between 6 and 25 BPM)04/27/2025 11:00 PM Shanika Bearden RNBaseline Rate G4431206/28/2024 11:00 PM Shanika Mcginnis RN Category BCategory I106/28/2024 11:00 PM Shanika Mcginnis RN * Vital SignsQuestionAnswerDate of PymcqvknnjDwnfguPD310/6004/27/2025 7:23 PM Shanika Mcginnis RNTemp98. 9:34 PM Shanika Mcginnis RNTemp srcOral 04/27/2025 9:34 PM Shanika Mcginnis FNZqfnd4942/21/2025 7:23 PM Shanika Mcginnis KEPdfz4053/21/2025 7:23 PM Shanika Mcginnis, QWLvW89546/21/2025 9:00 AM Kaleigh Mora RNBP cuff sizeAdult (25-34cm)04/27/2025 9:00 AM Kaleigh Mora RNO2 DeviceNone (Room air)04/27/2025 7:23 PM Shanika Mcginnis RNHeart Rate CdlfxaRdcbcfc98/21/2025 3:26 PM Kaleigh Mora RNBP LocationLeft arm 04/27/2025 3:26 PM Kaleigh Mora RNBP XwreygNluqlkymr01/21/2025 3:26 PM Kaleigh Mora RNMAP (mmHg)80106/28/2024 3:26 PM Kaleigh Mora RNIs this an Orthostatic BP?No04/27/2025 3:26 PM Kaleigh Mora RNPatient Position Ijgrmnj7004/27/2025 3:26 PM Kaleigh Mora RN * Oxygen TherapyQuestionAnswerDate of AssessmentAuthorPulse Oximetry Type Continuous;Ahgrcsxdbb95/21/2025 9:00 AM Kaleigh Mora RN * Pain 2QuestionAnswerDate of AssessmentAuthorObserved SthwfgxuJxsz13/21/2025 3:26 PM Kaleigh Mora RN * Patient ObservationQuestionAnswerDate of AssessmentAuthorPatient Observations patient provided pillows and blankets to increase rqwepgo3204/27/2025 3:19 AM Kenia Barton RN * GastrointestinalQuestionAnswerDate of AssessmentAuthorGastrointestinal (WDL) WDL106/28/2024 7:00 PM Shanika Mcginnis RNGastrointestinal Additional OabjwzymqlpFe43/21/2025 7:00 AM Kaleigh Mora RN * MusculoskeletalQuestionAnswerDate of AssessmentAuthorMusculoskeletal (WDL)WDL 04/27/2025 7:00 PM Shanika Mcginnis RN * GenitaliaQuestionAnswerDate of AssessmentAuthorFemale Genitalia Intact;Mafwuoefj36/21/2025 7:00 PM Shanika Mcginnis RN * Anus/RectumQuestionAnswerDate of AssessmentAuthorAnus/Rectum (WDL)WDL 04/27/2025 7:00 PM Shanika Mcginnis RN * PsychosocialQuestionAnswerDate of AssessmentAuthorPatient Behaviors/Mood Aldkcfy9404/27/2025 7:00 PM Shanika Mcginnis, RNFamily/Visitor BehaviorsCalm 04/27/2025 7:00 PM Shanika Mcginnis RNNeeds ItwetosjjRbmuyr38/21/2025 7:00 PM Shanika Mcginnis, RNPsychosocial (WDL)X106/28/2024 7:00 PM Shanika Mcginnis RN Person/Family MluackpghnTljrya01/21/2025 7:00 PM Shanika Mcginnis RNAbility to Express FeelingsAble to ezmwpse2204/27/2025 7:00 PM Shanika Mcginnis RNAbility to Express NeedsAble to nkyhfhb2704/27/2025 7:00 PM Shanika Mcginnis RNAbility to Express ThoughtsAble to agzbjev5804/27/2025 7:00 PM Shanika Mcginnis RNTime of LoaafpofjiFpxtnzo31/21/2025 7:00 PM Shanika Mcginnis RNAbility to Understand UoezdpJgoosvmwrgt71/21/2025 7:00 PM Shanika Mcginnis RN * [place] Fall RiskQuestionAnswerDate of AssessmentAuthorHistory of Falling0 04/27/2025 7:00 PM Shanika Mcginnis RNSecondary Xwxfwxcde3500/21/2025 7:00 PM Shanika Mcginnis RNAmbulatory Pvcj77306/28/2024 7:00 PM Shanika Mcginnis RN Intravenous Therapy/Heparin/Saline Xtwe948006/28/2024 7:00 PM Shanika Mcginnis RNGait/Vkljyqjgqljc352/21/2025 7:00 PM Shanika Mcginnis RNMental Status0 04/27/2025 7:00 PM Shanika Mcginnis, XSPbknk0653/21/2025 7:00 PM Shanika Mcginnis, KLEVER * Arvind ScaleQuestionAnswerDate of AssessmentAuthorSensory Perceptions4 04/27/2025 7:00 PM Shanika Mcginnis RNMoisture4106/28/2024 7:00 PM Shanika Mcginnis, NRVrwbcebl664/21/2025 7:00 PM Shanika Mcginnis RNMobility4106/28/2024 7:00 PM Shanika Mcginnis RNNutrition4106/28/2024 7:00 PM Shanika Mcginnis, KLEVER Friction and Ydvix84906/28/2024 7:00 PM Shanika Mcginnis RNBraden Scale Score21 04/27/2025 7:00 PM Shanika Mcginnis, KLEVER * Pain Intervention(s)AnswerDate of AssessmentAuthorMedication (See MAR) 04/27/2025 4:03 PM Jemima Zambrano RN * RespiratoryQuestionAnswerDate of AssessmentAuthorBilateral Breath SoundsClear 04/27/2025 7:00 PM Shanika Mcginnis RNR Breath BvizxlExicn77/21/2025 7:00 PM Shanika Mcginnis RNL Breath NksbgwNezro15/21/2025 7:00 PM Shanika Mcginnis RN Respiratory EcyjdacWegmquj00/21/2025 7:00 PM Shanika Mcginnis RNChest AssessmentChest expansion tytgscrsqnj67/21/2025 7:00 PM Shanika Mcginnis RN CoughProductive;Arigdiysut49/21/2025 7:00 PM Shanika Mcginnis RNRespiratory (WDL)X106/28/2024 7:00 PM Shanika Mcginnis RNRespiratory Additional Assessments No04/27/2025 6:00 AM Kenia Barton RN * Cough DescriptionQuestionAnswerDate of AssessmentAuthorSputum AmountUnable to nhzjgg2104/27/2025 7:00 PM Shanika Mcginnis RNSputum ExiaiNrevuh26/21/2025 7:00 PM Shanika Mcginnis RNSputum HwkbskirunzFvveg62/21/2025 7:00 PM Shanika Mcginnis RN * Values/BeliefsQuestionAnswerDate of AssessmentAuthorCultural Requests During Kmosiofyarnqtgufras17/21/2025 12:27 AM Kenia Barton RNSpiritual Requests During Pvrqpybxtvlyzpnehos90/21/2025 12:27 AM Kenia Barton RN * GenitourinaryQuestionAnswerDate of BsvfzqxuvcKeqivrOgxlm46063/21/2025 7:00 AM Kaleigh Mora RNGenitourinary (WDL)WDL106/28/2024 7:00 PM Shanika Mcginnis RN * NeurologicalQuestionAnswerDate of AssessmentAuthorNeuro ([facility])WD06/28/2024 7:00 PM Shanika Mcginnis RN * Abuse Indicator ScreeningQuestionAnswerDate of AssessmentAuthorSafe in HomeYes 04/27/2025 12:27 AM Kenia Barton RNDo you feel safe in your relationship(s)?Yes04/27/2025 12:27 AM Kenia Barton RNAre you in immediate danger?No04/27/2025 12:27 AM Kenia Barton RN * Safe EnvironmentQuestionAnswerDate of AssessmentAuthorHourly RoundingYes 04/27/2025 11:00 PM Shanika Mcginnis RNArm Bands OnID04/27/2025 7:00 PM Shanika Bearden RNCall Perez Within LnfzyKhs86/21/2025 7:00 PM Shanika Mcginnis RNOverbed Table Within BgahhWkp96/21/2025 7:00 PM Shanika Mcginnis RNBed In Lowest SuosxvjoCyx83/21/2025 7:00 PM Shanika Mcginnis RNBed Wheels LockedYes 04/27/2025 7:00 PM Shanika Mcginnis RNSide Rails/Bed Safety 7:00 PM Shanika Mcginnis RNNonSkid FootwearOff;Patient in bed04/27/2025 7:00 PM Shanika Bearden RNBed/Chair Alarm OnOther (comment)04/27/2025 7:00 PM Shanika Mcginnis RN * Hygiene and AssistanceQuestionAnswerDate of AssessmentAuthorHygienePeri care;Linen bfruqsn5704/27/2025 5:10 AM Kenia Barton RN * PrecautionsQuestionAnswerDate of AqkdqngaloBekvrqCimywkwxgmrPehl18/21/2025 7:00 PM Shanika Mcginnis RN * Provider CommunicationQuestionAnswerDate of AssessmentAuthorProvider Role Uurxwcii69/21/2025 8:17 PM Shanika Mcginnis RNProvileon NameDr [facility] 04/27/2025 8:17 PM Shanika Mcginnis RNMethod of AvcphohgouendShxe52/21/2025 8:17 PM Shanika Mcginnis RNResponseEn route04/27/2025 8:17 PM Shanika Mcginnis RN * Harm Risk AssessmentQuestionAnswerDate of AssessmentAuthorAre you having thoughts of homicide or causing harm to others?No04/27/2025 12:21 AM Kenia Rankin RN * Blood HistoryQuestionAnswerDate of AssessmentAuthorHave you had a blood transfusion?No04/27/2025 12:08 AM Kenia Barton RNWould you accept a blood transfusion in a life-threatening situation?Yes04/27/2025 12:08 AM Kenia Rankin RN * Medium/High Fall Risk Interventions (score = 25 and higher)AnswerDate of AssessmentAuthorAdaptive devices within reach;Adequate lighting/nightlight;Area clear of hazards;Bed/low position;Bed or chair locked;Call light within reach;Family/significant other at bedside;Side rails up x204/27/2025 7:00 PM Shanika Mcginnis RN * Readmission RiskQuestionAnswerDate of AssessmentAuthorRisk of Unplanned Readmission (30+ danger)6. 11:25 PM Matteo Starks * Adult Sepsis RiskQuestionAnswerDate of AssessmentAuthorSIRS Criteria2 04/27/2025 11:20 PM Janette StarkscRidanni of Sepsis v.20. 11:20 PM Matteo Starks * Grease Board NotesQuestionAnswerDate of AssessmentAuthorGrease Board NotesTX PAN PROM TWINS(A-KNOWN IUFD)04/26/2025 11:54 PM Rossy Matias, KLEVER * Influenza Vaccine Screen - February Through JulyQuestionAnswerDate of AssessmentAuthorHave you had an influenza vaccine this season?No04/27/2025 12:22 AM Kenia Barton RNPatient Meets Criteria (over age 18 with no contraindications)Yes04/27/2025 12:22 AM Kenia Barton RN * RN: Observer/Environment EvaluationQuestionAnswerDate of AssessmentAuthor ObserverNot zfyoiqgll93/21/2025 7:00 PM Shanika Mcginnis RN * Blood Specimen Collection StatusQuestionAnswerDate of AssessmentAuthorBlood Specimen ZjypzmabyqPtv47/21/2025 6:06 AM Megan Carmona, * Pain AssessmentQuestionAnswerDate of AssessmentAuthorPain LocationAbdomen 04/27/2025 5:00 AM Kenia Barton RNPain KtktcplvcssOlpws47/21/2025 5:00 AM Kenia Barton RNPain FthiolauzotNbbxcgcv59/21/2025 3:26 PM Kaleigh Mora RNPain DurationConstant/dqxathdtve40/21/2025 3:26 PM Kaleigh Byers RNPatient's Stated Acceptable Pain LevelNo pain04/27/2025 5:00 AM Kenia Barton RNPain AssessmentNo/denies pain04/27/2025 10:00 PM Shanika Mcginnis RNPain Numzb85206/28/2024 10:00 PM Shanika Mcginnis RN * NutritionQuestionAnswerDate of AssessmentAuthorCurrent Diet TypeOB Regular Huhpggu6304/27/2025 7:00 PM Shanika Mcginnis, IDLbkmrtpeTbth70/21/2025 7:00 PM Shanika Mcginnis RNRoom ServiceAppropriate for room iovokix6204/27/2025 7:00 PM Shanika Mcginnis RN * IntegumentaryQuestionAnswerDate of AssessmentAuthorIntegumentary (WDL)WDL 04/27/2025 7:00 PM Shanika Mcginnis RN * Fall Risk ScaleQuestionAnswerDate of AssessmentAuthorFall Risk ScaleMorse Fall Risk Scale04/27/2025 7:00 PM Shanika Mcginnis RN * Tattoos/PiercingsQuestionAnswerDate of AssessmentAuthorDoes patient have tattoos?Yes04/27/2025 7:00 PM Shanika Mcginnis RN * [place] Suicide BehaviorQuestionAnswerDate of AssessmentAuthor6. Have you ever done anything, started to do anything, or prepared to do anything to end your life?No04/27/2025 12:21 AM Kenia Barton RN * Suicidal Ideation (Last Month)QuestionAnswerDate of AssessmentAuthor1. In the last month have you wished you were or wished you could go to sleep and not wake up?No04/27/2025 12:21 AM Kenia Barton RN2. In the last month have you actually had any thoughts of killing yourself?No04/27/2025 12:21 AM Kenia Barton RNAble to assess?Yes04/27/2025 12:21 AM Kenia Rankin RN * Vitals TimerQuestionAnswerDate of AssessmentAuthorRestart Vitals TimerYes 04/27/2025 9:00 AM Kaleigh Mora RN * CardiovascularQuestionAnswerDate of AssessmentAuthorCardiovascular (WDL)WDL 04/27/2025 7:00 PM Shanika Mcginnis RN * OB Nutrition ScreenQuestionAnswerDate of AssessmentAuthorCurrent diagnosis of hyperemesis?No04/27/2025 12:26 AM Kenia Barton RNReceiving tube feeding or parenteral nutrition immediately prior to admission?No04/27/2025 12:26 AM Kenia Barton RNHas intake been significantly decreased for the past 7 days?No04/27/2025 12:26 AM Kenia Barton RN15 years old or less and ?No04/27/2025 12:26 AM Kenia Barton RNNew diagnosis of diabetes & would like education?No04/27/2025 12:26 AM Kenia Barton RNUncontrolled diabetes & patient would like education?No04/27/2025 12:26 AM Kenia Barton RN * TB ScreeningQuestionAnswerDate of AssessmentAuthorPatient has prolonged cough? No04/27/2025 12:25 AM Kenia Barton RNPatient has bloody cough?No 04/27/2025 12:25 AM Kenia Barton RNPatient has fever?No04/27/2025 12:25 AM Kenia Barton RNPatient has night sweats?No04/27/2025 12:25 AM Kenia Barton RNPatient has weight loss?No04/27/2025 12:25 AM Kenia Rankin RNPatient has positive PPD?No04/27/2025 12:25 AM Kenia Rankin RN * Reason for CommunicationQuestionAnswerDate of AssessmentAuthorReason for CommunicationOther (Comment)04/27/2025 8:17 PM Shanika Mcginnis RN * Evaluate PatientQuestionAnswerDate of AssessmentAuthorEvaluate Patient Comment Provider updated on patient vomiting and feeling cramping. Zofran order obtained. Also updated on patient becoming tachycardic and feeling unwell. 04/27/2025 5:24 AM Kenia Barton RN * Other CommunicationQuestionAnswerDate of AssessmentAuthorOther Communication Commentpatient would like to leave AMA after IV medication tonight around 11pm 04/27/2025 8:17 PM Shanika Mcginnis RN * [place] Suicide Risk LevelAnswerDate of AssessmentAuthorNot at Suicide Risk 04/27/2025 12:21 AM Kenia Barton RN * ADL/Functional/CognitiveQuestionAnswerDate of AssessmentAuthorPatient's Vision Adequate to Safely Complete Daily EafvakgkkuGa30/21/2025 1:17 AM Kenia Rankin RNPatidick's Judgement Adequate to Safely Complete Daily GsqrzcnaoqNso14/21/2025 1:17 AM Kenia Barton RNHearing - Right Ear Rlzcjbjkdd27/21/2025 1:17 AM Kenia Barton RNHearing - Left Ear Kzxukdohzl08/21/2025 1:17 AM Kenia Barton RNAre you deaf or do you have serious difficulty hearing?No - 1:17 AM Kenia Barton RNAre you blind or do you have serious difficulty seeing, even when wearing glasses?No - 1:17 AM Kenia Barton RNBecause of a physical, mental, or emotional condition, do you have serious difficulty concentrating, remembering, or making decisions? (5 years old or older)No - 2 04/27/2025 1:17 AM Kenia Barton RNBecause of a physical, mental, or emotional condition, do you have difficulty doing errands alone such as visiting a doctor???s office or shopping? (15 years old or older)No - 2 04/27/2025 1:17 AM Kenia Barton RN * HandoffQuestionAnswerDate of AssessmentAuthorHandoff Report:Given to Next Shift RN04/27/2025 6:00 AM Kenia Barton RNPerson Handoff Given To / Received FromAlly RN04/27/2025 6:00 AM Kenia Barton RN * Crib/Car Seat AvailabilityQuestionAnswerDate of AssessmentAuthorCar Seat CdimdyisuQca98/21/2025 12:30 AM Kenia Barton RNCrib Available at Home for RmosysXvq72/21/2025 12:30 AM Kenia Barton RN * ActivityQuestionAnswerDate of AssessmentAuthorActivity PerformedResting in bed 04/27/2025 7:00 AM Kaleigh Mora RNActivity ResponseTolerated well 04/27/2025 7:00 AM Kaleigh Mora RNRange of MotionActive;All extremities 04/27/2025 7:00 AM Kaleigh Mora RNToileting AssistanceAmbulate to /21/2025 7:00 AM Kaleigh Mora RNRepositionedTurns self 04/27/2025 7:00 AM Kaleigh Mora RNTransport EesfufRqxxzqaufo71/21/2025 7:00 AM Kaleigh Mora RNBed PositionSelf autnljces26/21/2025 7:00 AM Kaleigh Byers RN * Uterine ActivityQuestionAnswerDate of AssessmentAuthorResting ToneSoft 04/27/2025 11:00 PM Shanika Mcginnis RNDurationna04/27/2025 11:00 PM Shanika Mcginnis RNCtx per 10 lxeo63106/28/2024 11:00 PM Shanika Mcginnis RNMonitorToco 04/27/2025 11:00 PM Shanika Mcginnis RNIntensityNot ymrqiktisy99/21/2025 11:00 PM Shanika Mcginnis RN * Vital SignsQuestionAnswerDate of BvaexknznbApcyheEU826/6004/27/2025 7:23 PM Shanika Mcginnis RNTemp98. 9:34 PM Shanika Mcginnis RNTemp srcOral 04/27/2025 9:34 PM Shanika Mcginnis, JWFatjp1445/21/2025 7:23 PM Shanika Mcginnis NUScwp7229/21/2025 7:23 PM Shanika Mcginnis PPQdE43267/21/2025 9:00 AM Kaleigh Mora RNHeart Rate PkanmmLhsmszk52/21/2025 3:26 PM Kaleigh Mora RNBP LocationLeft arm04/27/2025 3:26 PM Kaleigh Mora RNBP Method Btjcidgwq54/21/2025 3:26 PM Kaleigh Mora RNMAP (mmHg)80106/28/2024 3:26 PM Kaleigh Mora RNIs this an Orthostatic BP?No04/27/2025 3:26 PM Kaleigh Mora RNPatient YidwymztNcjwpyu30/21/2025 3:26 PM Kaleigh Mora RN * Safe EnvironmentQuestionAnswerDate of AssessmentAuthorCall Perez Within Reach Yes04/27/2025 7:00 PM Shanika Mcginnis RNBed In Lowest UhpilvarIig97/21/2025 7:00 PM Shanika Mcginnis RNBed Wheels MdplaxXdy54/21/2025 7:00 PM Shanika Mcginnis RN * ADL/Functional/CognitiveQuestionAnswerDate of AssessmentAuthorPjovanny's Vision Adequate to Safely Complete Daily AeebdikbguPa85/21/2025 1:17 AM Kenia Rankin RNPatient's Judgement Adequate to Safely Complete Daily SndpfqggwzRvy71/21/2025 1:17 AM Kenia Barton RNHearing - Right Ear Uhwiqmrvxh79/21/2025 1:17 AM Kenia Barton RNHearing - Left Ear Bzqgarwpkx77/21/2025 1:17 AM Kenia Barton RNAre you deaf or do you have serious difficulty hearing?No - 1:17 AM Kenia Barton RNAre you blind or do you have serious difficulty seeing, even when wearing glasses?No - 1:17 AM Kenia Barton RNBecause of a physical, mental, or emotional condition, do you have serious difficulty concentrating, remembering, or making decisions? (5 years old or older)No - 2 04/27/2025 1:17 AM Kenia Barton RNBecause of a physical, mental, or emotional condition, do you have difficulty doing errands alone such as visiting a doctor???s office or shopping? (15 years old or older)No - 2 04/27/2025 1:17 AM Kenia Barton RN documented as of this encounter Mental Status * HEENTQuestionAnswerEntry DateAuthorHEENT (WDL)WDL106/28/2024 7:00 PM Shanika Mcginnis RN * ActivityQuestionAnswerEntry DateAuthorTransport YniwtiWeawniexyt24/21/2025 7:00 AM Kaleigh Mora RN * Vital SignsQuestionAnswerEntry AfwhRbnykuNQ414/6004/27/2025 7:23 PM Shanika Mcginnis RNTemp98. 9:34 PM Shanika Mcginnis RNTemp bmoPihw5804/27/2025 9:34 PM Shanika Mcginnis RRSvgqr2549/21/2025 7:23 PM Shanika Mcginnis IQYbez00 04/27/2025 7:23 PM Shanika Mcginnis UZKmM94435/21/2025 9:00 AM Kaleigh Mora RNBP cuff sizeAdult (25-34cm)04/27/2025 9:00 AM Kaleigh Mora RN O2 DeviceNone (Room air)04/27/2025 7:23 PM Shanika Mcginnis RNHeart Rate ZuxxodNuvrkrd67/21/2025 3:26 PM Kaleigh Mora RNBP LocationLeft arm 04/27/2025 3:26 PM Kaleigh Mora RNBP BrnfqtCxwzqbeth32/21/2025 3:26 PM Kaleigh Mora RNMAP (mmHg)80106/28/2024 3:26 PM Kaleigh Mora RNIs this an Orthostatic BP?No04/27/2025 3:26 PM Kaleigh Mora RNPatient Position Aljdpln3204/27/2025 3:26 PM Kaleigh Mora RN * Oxygen TherapyQuestionAnswerEntry DateAuthorPulse Oximetry Type Continuous;Lcpglpsyut98/21/2025 9:00 AM Kaleigh Mora RN * Pain 2QuestionAnswerEntry DateAuthorObserved RwtsqrkvGqkm68/21/2025 3:26 PM Kaleigh Mora RN * GastrointestinalQuestionAnswerEntry DateAuthorGastrointestinal (WDL)WDL 04/27/2025 7:00 PM Shanika Mcginnis RNGastrointestinal Additional Assessments No04/27/2025 7:00 AM Kaleigh Mora RN * MusculoskeletalQuestionAnswerEntry DateAuthorMusculoskeletal (WDL)WDL 04/27/2025 7:00 PM Shanika Mcginnis RN * GenitaliaQuestionAnswerEntry DateAuthorFemale GenitaliaIntact;Discharge 04/27/2025 7:00 PM Shanika Mcginnis RN * Anus/RectumQuestionAnswerEntry DateAuthorAnus/Rectum (WDL)WDL106/28/2024 7:00 PM Shanika Mcginnis RN * PsychosocialQuestionAnswerEntry DateAuthorPatient Behaviors/MoodAnxious 04/27/2025 7:00 PM Shanika Mcginnis RNFamily/Visitor RouuefpmaTjwy87/21/2025 7:00 PM Shanika Mcginnis RNNeeds IxsqrrdtfBqilbo24/21/2025 7:00 PM Shanika Mcginnis RNPsychosocial (WDL)X106/28/2024 7:00 PM Shanika Mcginnis RN Person/Family CjlrxqgixfPpspzs65/21/2025 7:00 PM Shanika Mcginnis RNAbilyash to Express FeelingsAble to uepbuhx7604/27/2025 7:00 PM Shanika Mcginnis RNAbility to Express NeedsAble to nekdmty6904/27/2025 7:00 PM Shanika Mcginnis RNAbility to Express ThoughtsAble to bgaxzxk9004/27/2025 7:00 PM Shanika Mcginnis RNTime of XihfpgmjxgKpobgnc38/21/2025 7:00 PM ESTLong, Shanika, RNAbility to Understand OmvteyPzpnsspckuh45/21/2025 7:00 PM Shanika Mcginnis RN * Arvind ScaleQuestionAnswerEntry DateAuthorSensory Lzinsshrecs928/21/2025 7:00 PM Shanika Mcginnis, EKIewfhzfx284/21/2025 7:00 PM Shanika Mcginnis, RNActivity2 04/27/2025 7:00 PM Shanika Mcginnis, RGIwzyziez487/21/2025 7:00 PM Shanika Mcginnis, RUUbzznxmvc115/21/2025 7:00 PM Shnaika Mcginnis, RNFriction and Shear3 04/27/2025 7:00 PM Shanika Mcginnis RNBraden Scale Qqaxl909004/27/2025 7:00 PM Shanika Mcginnis RN * Pain Intervention(s)AnswerEntry DateAuthorMedication (See MAR)04/27/2025 4:03 PM Jemima Zambrano RN * RespiratoryQuestionAnswerEntry DateAuthorBilateral Breath SoundsClear 04/27/2025 7:00 PM Shanika Mcginnis RNR Breath IgjxelFzabe82/21/2025 7:00 PM Shanika Mcginnis RNL Breath ClcyrwWqnrh55/21/2025 7:00 PM Shanika Mcginnis RN Respiratory YmaoavsBupmfxb53/21/2025 7:00 PM Shanika Mcginnis RNChest AssessmentChest expansion rmlaitesbam66/21/2025 7:00 PM Shanika Mcginnis RN CoughProductive;Qutovbcvlk21/21/2025 7:00 PM Shanika Mcginnis RNRespiratory (WDL)X106/28/2024 7:00 PM Shanika Mcginnis RNRespiratory Additional Assessments No04/27/2025 6:00 AM Kenia Barton RN * Cough DescriptionQuestionAnswerEntry DateAuthorSputum AmountUnable to assess 04/27/2025 7:00 PM Shanika Mcginnis RNSputum OpjrlYanbfb34/21/2025 7:00 PM Shanika Bearden RNSputum ZyxabyewsxbOcfse03/21/2025 7:00 PM Shanika Mcginnis RN * GenitourinaryQuestionAnswerEntry HrpiAoctcnOivjp50343/21/2025 7:00 AM Kaleigh Mora RNGenitourinary (WDL)WD06/28/2024 7:00 PM Shanika Mcginnis RN * NeurologicalQuestionAnswerEntry DateAuthorNeuro (WDL)[facility]06/28/2024 7:00 PM Shanika Bearden RN * Provider CommunicationQuestionAnswerEntry DateAuthorProvider RoleResident 04/27/2025 8:17 PM Shanika Mcginnis RNProvider NameDr Rcesfams26/21/2025 8:17 PM Shanika Mcginnis RNMethod of BvanmqhebhugbExnm05/21/2025 8:17 PM Shanika Mcginnis RNResponseEn route04/27/2025 8:17 PM Shanika Mcginnis RN * RN: Observer/Environment EvaluationQuestionAnswerEntry DateAuthorObserverNot yarhipzrz42/21/2025 7:00 PM Shanika Mcginnis RN * Pain AssessmentQuestionAnswerEntry DateAuthorPain TbobijzsHkqvgma25/21/2025 5:00 AM Kenia Barton, Misael NlyrtiqjufmZrqwq54/21/2025 5:00 AM Kenia Rankin RNPain GivbqsnhobhXbbcyhtj94/21/2025 3:26 PM Kaleigh Mora RNPain DurationConstant/hbmuufxswf13/21/2025 3:26 PM Kaleigh Mora RNPatient's Stated Acceptable Pain LevelNo pain04/27/2025 5:00 AM Kenia Rankin RNPain AssessmentNo/denies pain04/27/2025 10:00 PM Shanika Bearden RNPain Qhpws86706/28/2024 10:00 PM Shanika Mcginnis RN * IntegumentaryQuestionAnswerEntry DateAuthorIntegumentary (WDL)[facility]06/28/2024 7:00 PM Shanika Mcginnis RN * Tattoos/PiercingsQuestionAnswerEntry DateAuthorDoes patient have tattoos?Yes 04/27/2025 7:00 PM Shanika Mcginnis RN documented in this encounter Medications at Time of Discharge MedicationSigDispense QuantityRefillsLast FilledStart DateEnd Date amoxicillin (AMOXIL) 250 mg capsule Take 1 capsule (250 mg total) by mouth every 8 (eight) hours for 18 doses. 18 capsule Bacillus coagulans (BACID WITH LACTOSPORE) 1 billion cell capsule Take 1 capsule by mouth in the morning. 90 capsule 10/29/2024 biotin (BIOTIN) 5 mg capsule Indications:Hair lossTake 1 capsule (5 mg total) by mouth in the morning. 90 capsule cholecalciferol, vitamin D3, (VITAMIN D3) 2,000 units tablet Indications:Vitamin D deficiencyTake 1 tablet (2,000 Units total) by mouth in the morning. 90 each cyanocobalamin (vitamin B-12) 1000 MCG tablet Take 1 tablet (1,000 mcg total) by mouth in the morning. 90 tablet docusate sodium (COLACE) 100 mg capsule Indications:Constipation, unspecified constipation typeTAKE 1 CAPSULE BY MOUTH DAILY NEEDED FOR CONSTIPATION 30 capsule erythromycin (E-MYCIN) 250 mg tablet,delayed release (DR/EC) Indications: premature rupture of membranes in third trimester, unspecified duration to onset of laborTake 1 tablet (250 mg total) by mouth every 8 (eight) hours for 18 doses. 18 tablet famotidine (PEPCID) 20 mg tablet Indications:Heart burnTAKE 1 TABLET BY MOUTH EVERY MORNING 30 tablet LZQW-ksannwth-kjiggejwkxb xt 100-100-225 mg capsule Take 1 capsule by mouth in the morning. 90 capsule magnesium oxide (MAGOX) 400 mg tablet Take 1 tablet (400 mg total) by mouth before bedtime. 90 tablet omega-3 acid ethyl esters (LOVAZA) 1 gram capsule TAKE 2 CAPSULES BY MOUTH EVERY MORNING AND TAKE TWO CAPSULES BY MOUTH AT BEDTIME 120 capsule 07/11/2024 omeprazole (PriLOSEC) 40 mg capsule Indications:Heart burnTake 1 capsule (40 mg total) by mouth in the morning. 30 capsule 608 196-guwr-wvjppu 6-dha 27 mg iron-1 mg -205 mg capsule Indications: care in third trimesterTake 1 each by mouth in the morning. 90 capsule valACYclovir (VALTREX) 1000 mg tablet Indications:HSV infectionTake 1 tablet (1,000 mg total) by mouth in the morning and 1 tablet (1,000 mg total) before bedtime. 30 tablet documented as of this encounter Progress Notes * Gaby Truong MD - 04/27/2025 5:42 AM EST Notified by RN patient reporting feeling overall unwell. She has been having episodes of emesis andurinary incontinence. Patient states she has not noticed any increased leakage of fluid, she deniesabdominal pain, fevers or chills. She reports movement. Patient is ill appearing. Vitals: 04/27/25 0300 04/27/25 0400 04/27/25 0425 04/27/25 0500 BP: 103/46 (!) 84/46 97/60 129/77 Temp: 36.8 ??C (98.2 ??F) 36.4 ??C (97.6 ??F) TempSrc: Axillary Oral Pulse: 87 93 108 Resp: 18 20 19 SpO2: 92% 95% 95% MAP (mmHg): 54 89 Physical exam shows abdomen is soft, non-tender, non-distended. No fundal tenderness FHT baseline 120bpm, moderate variability, accelerations present, no decelerations noted Resp panel negative Stat CBC, CMP and lactate ordered. UA and Ucx ordered Zofran and IVF bolus ordered Dr Nesbitt updated Gaby Truong MD Product Development Worker Resident, PGY-4 Cosigned by Mary Nesbitt MD at 04/27/2025 7:24 AM EST Associated attestation - Mary Nesbitt MD - 04/27/2025 7:24 AM EST I was updated and reviewed note. Given PPROM, low threshold to intervene with delivery if intra amniotic infection suspected. Will follow up labs. We went back to see patient and she was resting comfortably in bed. She had also reports some URI symptoms upon admission but respiratory panel negative. No elevated WBC, fever, or abdominal tenderness documented in this encounter H&P Notes * Gaby Truong MD - 04/27/2025 1:42 AM EST ObGyn History and Physical Chief Complaint: possible PPROM SUBJECTIVE HPI Ese Badillo is a 34 y.o. @ 28w3d who presents as a Transport from [facility] with concern for possible PPROM. Patient states she first started noting possible leakage this morning where she states she went to void and felt she had more urine in relation to the amount of PO fluids she was intaking. She states she initially waited to see if it would continue and reports shethen had fluid noted on her underwear. She reports the fluid appeared thick yellow consistency. Shestates it did not soak through her underwear but it was present. She reports she decided to presentfor evaluation. Patient states she has had URI symptoms for the last few days and states she had a sick child at home with similar symptoms. She denies any fevers/chills, nausea/vomiting or diarrhea.She reports movement of Baby B with no contractions or vaginal bleeding noted. She denies anyrecent intercourse While at [facility], an exam was performed and an amniosure sent which was positive. She wasstarted on Magnesium sulfate for neuroprotection, ampicillin and corticosteroids then transferred to [facility] for further evaluation and management complicated by: 1. Di/di twin with elective reduction of Baby A (@23w5d) 2. 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 Galactosemia carrier 4. HSV 5. Hx LEEP 6. Hx Hep C 7. Rh- Review of Systems - All pertinent positives are noted in the HPI. Other systems reviewed and are negative. 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 They have a gskt-mxkw-tlo daughter that has a mild form (Clemens variant) of galactosemia diagnosed via screening with minimal need for treatment and management. Ese has a healthy 17-year-old daughter with a different partner. Rancho has two healthy chil Chlamydia 2010 Elevated liver enzymes Fatigue Headache 09/06/2022 Hepatitis C Hepatitis C 04/25/2017 History of hepatitis C 04/25/2017 treated 04/2020 with Mavyret (Dr. Daniel) 09/07/22 viral load undetectable 09/05/23 viral load undetected History of heroin abuse ([facility]) 03/17/2024 03/17/2024: Patient states she has been clean since 2011. History of loop electrical excision procedure (LEEP) 08/23/2023 LEEP 2016 Cervical lengths to start at 16 weeks until 24 weeks. HSV infection oral cold sores Intermittent explosive disorder 12/21/2022 Migraine Mood disorder PTSD (post-traumatic stress disorder) Surgical Hx Past Surgical History: Procedure Laterality Date CERVICAL BIOPSY W/ LOOP ELECTRODE EXCISION 05/03/16 COLPOSCOPY LEEP CERVIX N/A 05/03/2016 Performed by Kim Bhatia MD at [facility] WISDOM TOOTH EXTRACTION Family Hx Family History Problem Relation Age of Onset Heart disease Paternal Grandmother Breast cancer Maternal Grandmother 73 diagnosed 2016 Parkinsonism Maternal Grandfather Heart disease Father Drug abuse Father Migraines Father Drug abuse Mother Migraines Mother Depression Mother Drug abuse Brother Colon cancer Neg Hx Ovarian cancer Neg Hx Uterine cancer Neg Hx Psychosocial Social History Socioeconomic History Marital status: Single Tobacco Use Smoking status: Former Current packs/day: 0.50 Average packs/day: 0.5 packs/day for 8.1 years (4.0 ttl pk-yrs) Types: Cigarettes Start date: 04/05/2017 Smokeless tobacco: Never Vaping Use Vaping status: Never Used Substance and Sexual Activity Alcohol use: Not Currently Alcohol/week: 3.0 - 4.0 standard drinks of alcohol Types: 3 - 4 Shots of liquor per week Comment: occasional Drug use: Not Currently Types: Marijuana, Heroin Sexual activity: Yes Partners: Male Comment: Current relationship 2012 Social History Narrative Current relationship since 2013. Social Drivers of Health Financial Resource Strain: Low Risk (05/07/2024) Overall Financial Resource Strain (CARDIA) Difficulty of Paying Living Expenses: Not hard at all Food Insecurity: No Food Insecurity (03/11/2025) Hunger Screening Food Insecurity - Worry: Never True Food Insecurity - Inability: Never True Transportation Needs: No Transportation Needs (03/28/2024) PRAPARE - Transportation Lack of Transportation (Medical): No Lack of Transportation (Non-Medical): No Interpersonal Safety: Low Risk (03/18/2025) Received from [facility] Intimate Partner Violence Safe in relationship? (up to 18): Not on file If you are in a relationship, do you feel safe in that relationship?: Yes Housing Instability: Low Risk (03/28/2024) Housing Instability Housing Instability: No OBJECTIVE Vitals There were no vitals filed for this visit. Physical Exam: Gen: NAD Abd: gravid, nontender Ext: no edema or redness in bilateral LE Neuro: AAOx3 SVE: cervix visually 1cm dilated, thick yellow fluid noted to be pooling in the vaginal vault and coming through the cervical os R/o ROM: Pooling positive, ferning positive, nitrazine negative. ROM plus sent FHT: baseline 120bpm, moderate variability, present acceleration, absent decelerations [place]: none Labs No results found for this or any previous visit (from the past 36 hours). ABO/Rh: Lab Results Component Value Date ABOINTEP O 03/26/2024 RHINTEP Negative 03/26/2024 Group B Strep: No results found for: EXTGBS Rubella: Lab Results Component Value Date RUBELLAIMMU IMMUNE 01/28/2025 Hepatitis B Surface Antigen: Lab Results Component Value Date HEPBSAG NEGATIVE 01/28/2025 HIV: Lab Results Component Value Date HIV4 NON REACTIVE 01/28/2025 RPR (VDRL): Lab Results Component Value Date SYPHILISTOT <0.2 03/26/2024 1hr OGTT (04/10): 103 Scans BSUS: Baby A transverse, minimal fluid noted around, baby B cephalic, DVP 5.6cm ASSESSMENT & PLAN Ese Badillo is a 34 y.o. @ 28w3d who presents as a transport from [facility] for PPROM in setting of di/di twin gestation with selective reduction of twin A due to multiple fetalanomalies 1. PPROM - R/o ROM: pooling positive, ferning positive, nitrazine negative. ROM plus sent - WBC 10.7 - Latency antibiotics continued - ANCS 04/26- - BEAM continued - Baby A: transverse, Baby B cephalic DVP 5.6cm - GCCT, vaginitis and GBS ordered - MFM consulted, appreciate recommendations. [facility] US ordered - Baby B FHT reactive and reassuring 2. Possible URI - RPP ordered 3. History of Hep C - Hep C quant ordered - AST/ALT wnl 4. Routine antepartum care - [facility] US 04/14: Baby A: multiple anomalies. Baby B: EFW 1059g (63%), AC 23cm (62%), DVP 5.5cm,ceph, post pl - NPO - cEFM Pt discussed with Dr. Yoana Truong MD Product Development Worker Resident, PGY-4 Cosigned by Mary Nesbitt MD at 04/27/2025 7:21 AM EST Associated attestation - Mary Nesbitt MD - 04/27/2025 7:21 AM EST I, personally, saw the patient and performed the critical and altman portions of the history and exam.I reviewed the resident's note. I discussed the case management with the resident and agree with the findings and plan as documented by the resident. Ese Badillo is a 34 y.o. admitted with suspected PPROM of baby A (which was selectively reduced due to multiple anomalies) Patient doing well without complaints. Vital signs stable and afebrile. Continue ANCS, latency antibiotics, BEAM Adequate fluid around baby B who was cephalic on scan Appreciate M recs documented in this encounter Consult Notes * ALEKSANDRA Warren - 04/27/2025 2:29 PM ESTAssociated Order(s): IP CONSULT TO NEONATOLOGY MATERNAL CONSULT NOTE Met with Ese Badillo, in her room, to discuss potential delivery at 28w4d gestation. She is a34 y.o. with Estimated Date of Delivery: 07/16/25 who presents with PPROM of twin A. complicated by selective reduction of twin A due to multiple anomalies, and the below. 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 They have a gaei-pjfp-rns daughter that has a mild form (Clemens variant) of galactosemia diagnosed via screening with minimal need for treatment and management. Ese has a healthy 17-year-old daughter with a different partner. Rancho has two healthy chil Chlamydia 2009 Elevated liver enzymes Fatigue Headache 09/06/2022 Hepatitis C Hepatitis C 04/25/2017 History of hepatitis C 04/25/2017 treated 04/2020 with Wilfredvyret (Dr. Daniel) 5/3/23 viral load undetectable 09/05/23 viral load undetected History of heroin abuse ([facility]) 03/17/2024 03/17/2024: Patient states she has been clean since 2011. History of loop electrical excision procedure (LEEP) 08/23/2023 LEEP 2016 Cervical lengths to start at 16 weeks until 24 weeks. HSV infection oral cold sores Intermittent explosive disorder 12/21/2022 Migraine Mood disorder PTSD (post-traumatic stress disorder) I spoke with the patient regarding expectations at delivery. The NICU team will be present for delivery and initial stabilization of the baby. Prior to leaving the delivery suite for the NICU we willupdate the family and make every effort to allow them to see the baby prior to transfer. We discussed the potential need for respiratory support, including intubation/surfactant administration, NCPAP, HFNC, and nasal cannula. At this gestation infant will be at risk for apnea of prematurity which is routinely treated with caffeine. They are aware that although every effort is made to tr ansition a baby off of caffeine prior to discharge, some babies born at this gestation do require outpatient caffeine as well as home apnea monitoring. While the infant is in the NICU they will be oncontinuous cardio-respiratory monitoring. At this gestation the baby will likely need IV/umbilical and/or PICC lines for nutrition. I explained the NICU feeding plan, which will likely include gavage feedings for several weeks. The infant will require feedings through a nasal/oral feeding tube while they grow and mature. Oral feedings are not typically introduced until approximately 33-34 weeks gestation, at which point breast/bottle feeds can be introduced. We discussed that this process may take weeks to months before the baby is able to successfully bottle/breast feed all of their feedings. I also reviewed the importance of maternal breast milk and the availability of donor breast milk. Mother does plan to provide breast milk for her infant at this time. She will be provided with a pump and supplies soon after delivery and theNICU team will be available to assist with nursing questions and concerns. We reviewed the risk of sepsis, IVH, ROP and NEC as they relate to the premature infant, as well asthe associated costume seamstress complications of each. They are aware that the may need antibiotics, and other medical consults as deemed necessary while in the NICU. NICU family participation, [facility]on Doc/RN BURN daily rounding procedures, the availability of the social sciences instructor and the availability of [facility] were all explained. The NICU visitation policy was discussed, they are aware of the visitation guidelines and parent/ banding procedures. We reviewed discharge criteria - which mainly includes thermoregulation in an open crib, achievement of full oral feedings,positive weight gain, and stable vital signs without episodes of apnea/bradycardia/desaturation. I did explain that discharge criteria are very individualized and that these are only general guidelines for discharge. Their may have a somewhat different discharge plan depending on clinical course and maturation/development. Parents verbalized understanding and all questions were answered. I encouraged the family to contact the NICU with any further questions. Gestational age information sheet was left at the bedside. Maternal history and records reviewed. I spent 45 minutes face to face with the patient and greater than 50% was in counseling and coordination of care discussing the complex care of her infant after delivery. ALEKSANDRA WARREN APRN-CNP 04/27/25 1434 * Charlene Lees MD - 04/27/2025 10:28 AM ESTAssociated Order(s): IP CONSULT TO MATERNAL MEDICINE [facility] Inpatient Consult Note Chief Complaint Patient presents with LEAKAGE/LOSS OF FLUID Reason for consult: PROM Ese Badillo is a 34 y.o.female. 28w4d Estimated Date of Delivery: 07/16/25 Presented as a Transport from [facility] with concern for possible PPROM. Patient states shefirst started noting possible leakage yesterday morning. While at [facility], an exam was performed and an amniosure sent which was positive. She wasstarted on Magnesium sulfate for neuroprotection, ampicillin and corticosteroids then transferred to [facility] for further evaluation and management. This morning she denies any fevers/chills, nausea/vomiting or diarrhea. She reports movement of Baby B with no contractions or vaginal bleeding noted. She denies any recent intercourse Complications: s/p multifetal reduction of Twin A at [facility] at 23w5d on 03/24/25 - genetic amniocentesis of Twin A results (see results in media) Spontaneously conceiving dichorionic diamniotic twin gestation. 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 Other anomalies due to spina bifida included -mild dilation of the lateral ventricles -dilation of the 3rd ventricle - Chiari malformation -obliteration of the posterior fossa -bilateral clubfeet suggestive of high lesion The family also underwent a consultation at the [facility] therapy Center Rh negative sp rhogam 03/25/25 Advanced maternal age with low risk cell free DNA testing. Both parents carrier for galactosemia. One of the daughters does have galactosemia trait and has required nutritional support. Patient was established with [facility] metabolic disorder howeverthe physician has retired. Patient has seen genetic counselor. Please see their note separately. 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 Will continue Valtrex through the History of LEEP procedure with normal transvaginal cervical length. Remote history of IV drug use followed by positive hepatitis-C which is now treated. Hepatitis-C antibody positive with nondetectable load. Patient has been completely treated REVIEW OF SYSTEMS: 14 point ROS is negative except as noted above. Medications Prior to Admission Medication Sig Dispense Refill Last Dose/Taking cholecalciferol, vitamin D3, (VITAMIN D3) 2,000 units tablet Take 1 tablet (2,000 Units total) by mouth in the morning. 90 each 3 04/26/2025 cyanocobalamin (vitamin B-12) 1000 MCG tablet Take 1 tablet (1,000 mcg total) by mouth in the morning. 90 tablet 3 04/26/2025 docusate sodium (COLACE) 100 mg capsule TAKE 1 CAPSULE BY MOUTH DAILY NEEDED FOR CONSTIPATION 30capsule 2 04/26/2025 famotidine (PEPCID) 20 mg tablet TAKE 1 TABLET BY MOUTH EVERY MORNING 30 tablet 6 04/26/2025 [id number] 6-dha 27 mg iron-1 mg -205 mg capsule Take 1 each by mouth in the morning.90 capsule 4 04/26/2025 Bacillus coagulans (BACID WITH LACTOSPORE) 1 billion cell capsule Take 1 capsule by mouth in the morning. (Patient not taking: Reported on 04/14/2025) 90 capsule 0 biotin (BIOTIN) 5 mg capsule Take 1 capsule (5 mg total) by mouth in the morning. (Patient not taking: Reported on 04/14/2025) 90 capsule 3 drospirenone, contraceptive, 4 mg (28) tablet Take 4 mg by mouth in the morning. 28 tablet 12 etonogestreL-ethinyl estradioL (NUVARING) 0.12-0.015 mg/24 hr vaginal ring Insert 1 each into the vagina every 21 days. Insert vaginally and leave in place for 3 consecutive weeks, then remove for 1 week. 1 each 11 FJXE-anutqoap-onfvpgzopqa xt 100-100-225 mg capsule Take 1 capsule by mouth in the morning. (Patient not taking: Reported on 04/14/2025) 90 capsule 1 magnesium oxide (MAGOX) 400 mg tablet Take 1 tablet (400 mg total) by mouth before bedtime. (Patient taking differently: Take 1 tablet (400 mg total) by mouth before bedtime. Occasionally.) 90 tablet1 omega-3 acid ethyl esters (LOVAZA) 1 gram capsule TAKE 2 CAPSULES BY MOUTH EVERY MORNING AND TAKE TWO CAPSULES BY MOUTH AT BEDTIME (Patient not taking: Reported on 04/27/2025) 120 capsule 0 Past Month omeprazole (PriLOSEC) 40 mg capsule Take 1 capsule (40 mg total) by mouth in the morning. (Patient not taking: Reported on 04/14/2025) 30 capsule 6 valACYclovir (VALTREX) 1000 mg tablet Take 1 tablet (1,000 mg total) by mouth in the morning and 1 tablet (1,000 mg total) before bedtime. 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 They have a [id number]-wtc daughter that has a mild form (Clemens variant) of galactosemia diagnosed via screening with minimal need for treatment and management. Ese has a healthy 17-year-old daughter with a different partner. Rancho has two healthy chil Chlamydia 2009 Elevated liver enzymes Fatigue Headache 09/06/2022 Hepatitis C Hepatitis C 04/25/2017 History of hepatitis C 04/25/2017 treated 04/2020 with Mavyret (Dr. Daniel) 09/07/22 viral load undetectable 09/05/23 viral load undetected History of heroin abuse ([facility]) 03/17/2024 03/17/2024: Patient states she has been clean since 2011. History of loop electrical excision procedure (LEEP) 08/23/2023 LEEP 2016 Cervical lengths to start at 16 weeks until 24 weeks. HSV infection oral cold sores Intermittent explosive disorder 12/21/2022 Migraine Mood disorder PTSD (post-traumatic stress disorder) SURGICAL HX Past Surgical History: Procedure Laterality Date CERVICAL BIOPSY W/ LOOP ELECTRODE EXCISION 05/03/16 COLPOSCOPY LEEP CERVIX N/A 05/03/2016 Performed by Kim Bhatia MD at [facility] SURGERY WISDOM TOOTH EXTRACTION MEDS Current Facility-Administered Medications Medication Dose Route Frequency Provider Last Rate Last Admin acetaminophen (TYLENOL EXTRA STRENGTH) tablet 1,000 mg 1,000 mg oral Q6H PRN Gaby Truong MD 1,000 mg at 04/27/25 0703 ampicillin (OMNIPEN) 2,000 mg in sodium chloride 0.9 % 100 mL IVPB W/ADAPTER 2,000 mg intravenous Q6H Gaby Truong MD Stopped at 04/27/25 0935 And erythromycin (ERYTHROCIN) 250 mg in sodium chloride 0.9 % 100 mL IVPB 250 mg intravenous Q6H Gaby Truong MD 105 mL/hr at 04/27/25 0952 250 mg at 04/27/25 0952 And [START ON 04/30/2025] amoxicillin (AMOXIL) capsule 250 mg 250 mg oral Q8H Gaby Truong MD And [START ON 04/30/2025] erythromycin (E-MYCIN) EC tablet 250 mg 250 mg oral Q8H CADE Gaby Truong MD betamethasone acet & sod phos (CELESTONE) injection 12 mg 12 mg intramuscular Once Gaby Truong MD calcium carbonate (TUMS) 200 mg elemental (500 mg) chewable tablet 400 mg 400 mg oral Q8H PRN Gaby Truong MD 400 mg at 04/27/25 0155 calcium gluconate injection 1,000 mg 1,000 mg intravenous PRN Gaby Truong MD dextrose (GLUTOSE) 40 % gel 15 g 15 g oral PRN Gaby Truong MD dextrose 5 % (D5W) infusion 100 mL/hr intravenous Continuous PRN Gaby Truong MD dextrose 50 % in water (D50W) 50% solution 25 mL 25 mL intravenous PRN Gaby Truong MD glucagon HCL injection 1 mg 1 mg intramuscular PRN Gaby Truong MD lactated ringers infusion 250 mL/hr intravenous Continuous PRN Gaby Truong MD PNV,calcium 99-lyon-eimvr acid ( PLUS) 27 mg iron- 1 mg tablet 1 tablet 1 tablet oral DailyGaby Truong MD 1 tablet at 04/27/25 0908 sodium chloride 0.9 % flush 3 mL 3 mL intravenous Q8H Gaby Truong MD 3 mL at 04/27/25 0907 sodium chloride 0.9 % flush 3 mL 3 mL intravenous PRN Gaby Truong MD valACYclovir (VALTREX) tablet 1,000 mg 1,000 mg oral BID Thelma Flood DO ALLERGIES No Known Allergies FAMILY HX Family History Problem Relation Age of Onset Heart disease Paternal Grandmother Breast cancer Maternal Grandmother 73 diagnosed 2015 Parkinsonism Maternal Grandfather Heart disease Father Drug abuse Father Migraines Father Drug abuse Mother Migraines Mother Depression Mother Drug abuse Brother Colon cancer Neg Hx Ovarian cancer Neg Hx Uterine cancer Neg Hx SOCIAL HX Social History Tobacco Use Smoking status: Former Current packs/day: 0.50 Average packs/day: 0.5 packs/day for 8.1 years (4.0 ttl pk-yrs) Types: Cigarettes Start date: 04/05/2017 Smokeless tobacco: Never Vaping Use Vaping status: Never Used Substance Use Topics Alcohol use: Not Currently Alcohol/week: 3.0 - 4.0 standard drinks of alcohol Types: 3 - 4 Shots of liquor per week Comment: occasional Drug use: Not Currently Types: Marijuana, Heroin Comment: no drug use since 2011 VITAL SIGNS IN LAST 24H Vitals: 04/27/25 0900 BP: (!) 80/46 Pulse: 78 Resp: 16 Temp: 36.5 ??C (97.7 ??F) SpO2: 97% Temp: [36.4 ??C (97.6 ??F)-37 ??C (98.6 ??F)] 36.5 ??C (97.7 ??F) Pulse: [78-108] 78 Resp: [16-20] 16 Blood Pressure : (80-129)/(44-77) 80/46 SpO2: [92 %-100 %] 97 % O2 Device: None (Room air) LABS Recent Results (from the past 36 hours) Light Blue Top Collection Time: 04/27/25 12:08 AM Result Value Ref Range Extra Tube Auto Resulted PST TOP Collection Time: 04/27/25 12:08 AM Result Value Ref Range Extra Tube Auto Resulted Syphilis Total (Unknown Syphilis Status) Collection Time: 04/27/25 12:13 AM Result Value Ref Range SYPHILIS TOTAL <0.2 <=0.8 AI Comprehensive metabolic panel Collection Time: 04/27/25 12:13 AM Result Value Ref Range SODIUM 135 134 - 146 mmol/L POTASSIUM 4.0 3.5 - 5.0 mmol/L CHLORIDE 105 98 - 109 mmol/L CARBON DIOXIDE 20 (L) 22 - 32 mmol/L ANION GAP 10 5 - 15 mmol/L BLOOD UREA NITROGEN 11 5 - 23 mg/dL CREATININE 0.51 0.40 - 1.00 mg/dL GLUCOSE 135 (H) 65 - 99 mg/dL CALCIUM 8.0 (L) 8.5 - 10.5 mg/dL TOTAL PROTEIN 6.5 6.0 - 8.0 g/dL ALBUMIN 3.7 3.2 - 5.3 g/dL ALKALINE PHOSPHATASE 95 39 - 130 U/L AST 11 <=41 U/L ALT 7 <=31 U/L BILIRUBIN,TOTAL 0.2 (L) 0.3 - 1.2 mg/dL EGFR Non-Race Dependent >90 >=60 ml/min/1.73sq.m CBC auto differential Collection Time: 04/27/25 12:13 AM Result Value Ref Range WBC 10.7 4 - 11 10^9/L RBC Count 4.03 3.8 - 5.2 10^12/L Hemoglobin 12.0 11.7 - 15.5 g/dL Hematocrit 34.6 (L) 35 - 47 % MCV 86 80 - 100 fL MCH 29.8 27 - 34 pg MCHC 34.7 32 - 36 g/dL RDW 13.6 11.5 - 15 % Platelet Count 249 150 - 450 10^9/L MPV 8.8 7 - 12 fL Neutrophils % 87.8 % Lymphocytes % 10.9 % Monocytes % 1.2 % Eosinophils % 0.0 % Basophils % 0.1 % Neutrophils Absolute (A) 9.4 (H) 1.5 - 6.6 10^9/L Lymphocytes Absolute 1.2 1.0 - 3.5 10^9/L Monocytes Absolute 0.1 0.0 - 0.9 10^9/L Eosinophils Absolute 0.0 0.0 - 0.4 10^9/L Basophils Absolute 0.0 0.0 - 0.2 10^9/L Differential Type AUTOMATED DIFFERENTIAL Type and screen Collection Time: 04/27/25 12:13 AM Result Value Ref Range ABO O RH Negative Antibody Screen Positive Antibody ID Collection Time: 04/27/25 12:13 AM Result Value Ref Range Antibody ID Passive D Antibody, Patient Received RHIG Rupture of membrane (ALL) Collection Time: 04/27/25 1:43 AM Result Value Ref Range RUPTURE OF MEMBRANE Negative Negative Resp Pathogens Panel/SARS CoV-2 Collection Time: 04/27/25 2:20 AM Result Value Ref Range SARS COV 2 BY PCR Not Detected Not Detected ADENOVIRUS Not Detected Not Detected CORONAVIRUS 229E Not Detected Not Detected CORONAVIRUS HKU1 Not Detected Not Detected CORONAVIRUS NL63 Not Detected Not Detected CORONAVIRUS OC43 Not Detected Not Detected HUMAN METAPNEUVIRUS Not Detected Not Detected RHINO/ENTEROVIRUS Not Detected Not Detected INFLUENZA A Not Detected Not Detected INFLUENZA B Not Detected Not Detected PARAINFLUENZA 1 Not Detected Not Detected PARAINFLUENZA 2 Not Detected Not Detected PARAINFLUENZA 3 Not Detected Not Detected PARAINFLUENZA 4 Not Detected Not Detected RESP SYNCYTIAL VIRUS Not Detected Not Detected BORD PARAPERTUSSIS Not Detected Not Detected BORDETELLA PERTUSSIS Not Detected Not Detected CHLAM.PNEUMONIAE Not Detected Not Detected MYCOPLASMA PNEUMONIAE Not Detected Not Detected Molecular Vaginitis Panel PCR Collection Time: 04/27/25 2:20 AM Specimen: Vagina; Swab Result Value Ref Range Bacterial Vaginosis DNA Not Detected Not Detected Abena species group DNA Not Detected Not Detected Abena glabrata/krusei DNA Not Detected Not Detected Trichomonas Vaginalis Not Detected Not Detected Light Blue Top Collection Time: 04/27/25 6:24 AM Result Value Ref Range Extra Tube Auto Resulted CBC auto differential Collection Time: 04/27/25 6:25 AM Result Value Ref Range WBC 12.1 (H) 4 - 11 10^9/L RBC Count 3.82 3.8 - 5.2 10^12/L Hemoglobin 11.3 (L) 11.7 - 15.5 g/dL Hematocrit 33.3 (L) 35 - 47 % MCV 87 80 - 100 fL MCH 29.6 27 - 34 pg MCHC 33.9 32 - 36 g/dL RDW 13.6 11.5 - 15 % Platelet Count 226 150 - 450 10^9/L MPV 8.3 7 - 12 fL Neutrophils % 89.5 % Lymphocytes % 8.6 % Monocytes % 1.8 % Eosinophils % 0.1 % Basophils % 0.0 % Neutrophils Absolute (A) 10.8 (H) 1.5 - 6.6 10^9/L Lymphocytes Absolute 1.0 1.0 - 3.5 10^9/L Monocytes Absolute 0.2 0.0 - 0.9 10^9/L Eosinophils Absolute 0.0 0.0 - 0.4 10^9/L Basophils Absolute 0.0 0.0 - 0.2 10^9/L Differential Type AUTOMATED DIFFERENTIAL Comprehensive metabolic panel Collection Time: 04/27/25 6:25 AM Result Value Ref Range SODIUM 136 134 - 146 mmol/L POTASSIUM 3.9 3.5 - 5.0 mmol/L CHLORIDE 108 98 - 109 mmol/L CARBON DIOXIDE 20 (L) 22 - 32 mmol/L ANION GAP 8 5 - 15 mmol/L BLOOD UREA NITROGEN 9 5 - 23 mg/dL CREATININE 0.51 0.40 - 1.00 mg/dL GLUCOSE 127 (H) 65 - 99 mg/dL CALCIUM 7.1 (L) 8.5 - 10.5 mg/dL TOTAL PROTEIN 6.0 6.0 - 8.0 g/dL ALBUMIN 3.2 3.2 - 5.3 g/dL ALKALINE PHOSPHATASE 80 39 - 130 U/L AST 10 <=41 U/L ALT 4 <=31 U/L BILIRUBIN,TOTAL 0.2 (L) 0.3 - 1.2 mg/dL EGFR Non-Race Dependent >90 >=60 ml/min/1.73sq.m Lactate w/ Reflex Collection Time: 04/27/25 6:25 AM Result Value Ref Range LACTATE W/REFLEX 1.0 0.4 - 2.0 mmol/L Urinalysis Collection Time: 04/27/25 7:56 AM Specimen: Urine Result Value Ref Range COLOR Yellow Yellow TURBIDITY Clear Clear SPECIFIC GRAVITY 1.023 1.003 - 1.035 NITRITE Negative Negative PH,URINE 6.5 5.0 - 8.5 LEUKOCYTE ESTERASE Negative Negative PROTEIN Trace (A) Negative KETONES (URINE) 10 mg/dL (A) Negative UROBILINOGEN <1.1 eu/dL <1.1 eu/dL BILIRUBIN (URINE) Negative Negative BLOOD/HGB Negative Negative MUCOUS Present (A) None R.B.CELLS 1 0 - 5 SQUAMOUS EPITHELIUM 1 0 - 5 W.B.CELLS 1 0 - 5 GLUCOSE (URINE) Negative Negative Immunization History Administered Date(s) Administered DTP 1989, 02/08/1990, 04/11/1990 DTaP, Unspecified 04/16/1991, 10/04/1994, 05/15/2001 HPV Quadrivalent 03/21/2007 Hep A, 2 Dose 03/21/2007 Hep B, Adolescent or Pediatric 04/04/2001, 05/15/2001, 12/31/2001 HiB 08/05/1990, 09/20/1990, 02/12/1991 Influenza, Injectable, quadrivalent (PF) 05/22/2017, 02/27/2024 MMR 02/12/1991, 05/15/2001 Meningococcal MCV4P 03/21/2007 OPV 1989, 02/08/1990, 04/16/1991, 10/04/1994 Polio, Unspecified 05/15/2001 RSV, bivalent, protein subunit RSVpreF, diluent reconstituted, 0.5 mL, PF 02/23/2024 Rho (D) Immune Globulin 09/11/2017, 08/23/2023, 11/14/2023, 01/02/2024, 03/28/2024 Td, Unspecified 12/31/2001 Tdap 01/12/2024 LAB REVIEW ABO/Rh: Lab Results Component Value Date ABOINTEP O 04/27/2025 RHINTEP Negative 04/27/2025 Group B Strep: No results found for: EXTGBS Rubella: Lab Results Component Value Date RUBELLAIMMU IMMUNE 01/28/2025 Hepatitis B Surface Antigen: Lab Results Component Value Date HEPBSAG NEGATIVE 01/28/2025 HIV: Lab Results Component Value Date HIV1X2 NONREACTIVE 11/11/2013 RPR (VDRL): Lab Results Component Value Date SYPHILIS NON REACTIVE 01/28/2025 One hour GTT: Lab Results Component Value Date LABGLUC 84 01/02/2024 Three Hour GTT: No results found for: GLUF , [id number] , [id number] , [id number] Physical Exam Vitals and nursing note reviewed. HENT: Head: Normocephalic and atraumatic. Cardiovascular: Rate and Rhythm: Normal rate. Pulmonary: Effort: Pulmonary effort is normal. Abdominal: Palpations: Abdomen is soft. Tenderness: There is no abdominal tenderness. Neurological: General: No focal deficit present. Mental Status: She is oriented to person, place, and time. Exam per primary team on admission SVE: cervix visually 1cm dilated, thick yellow fluid noted to be pooling in the vaginal vault and coming through the cervical os R/o ROM: Pooling positive, ferning positive, nitrazine negative. FHT: 120 mod variability present accels no sign decels interpretation per primary OB team BSUS Scan from admission at [facility] BSUS: Baby A transverse, minimal fluid noted around, baby B cephalic, DVP 5.6cm ASSESSMENT/PLAN: Ese Badillo is a 34 y.o. female with at 28w4d Estimated Date of Delivery: 07/16/25 PROM of demised twin s/p multifetal reduction of Twin A at [facility] at 23w5d on 03/24/25 Reviewed with the patient that based on her clinical presentation and the performed exams thus far rupture of membranes of the demised twin. Also she underwent multi reduction in March at 23weeks and 5 days of the presenting twin with anomalies which is a risk factor for PROM. The PROM increases the risk of complications in the including but not limited to rupture of membrane for twin B, infection, labor, placental abruption, NICU admission, PPH. I reviewed with the patient management of pregnancies with PROM. Recommendation is for inpatient management. Currently no signs of infection. Her abdomen is non-tender. Vital signs are stable. Appropriate rise in white cell count from steroid administration. No tachycardia. Lactate is normal. Recommendations - complete corticosteroids - latency antibiotics - stop magnesium sulfate as currently no signs of labor remains candidate for magnesium sulfate for neuro protection until 32 weeks - social work consult the patient has a significant concerns regarding her childcare with the her other children. - NICU consultation - continue to address control with the her - and symptoms of infection, labor, placental abruption, cord prolapse. - MFM ultrasound - remaining labs in process Continue with the inpatient management. Thank you for allowing me to participate in her care. Please contact me if you have any concerns. Charlene Lees MD, FACOG (she/hers) Maternal- Medicine [facility] [address] [place] [address] This document was created with [employer] technology. Though I make every effort to review the dictation as it is transcribed, on occasion the spoken word can be misinterpreted by the technology leading to inappropriate words, phrases, or sentences. This note is addressed to the requesting provider as a consultation for clinical guidance. Specificmedical abbreviations are occasionally used and those are generally approved by the [place]?Board of?Obstetrics and?Gynecology?as well as?[place]???s abbreviations. The above plan of care was based solely on the diagnoses for which a consultation was requested. ?More frequent testing may be indicated based on her other medical/obstetrical conditions. The management of other or medical conditions is beyond the scope of requested consultation and will c ontinue to be followed by the primary manager it training or primary care provider. Note to patient: The Century Cures Act makes medical notes like these available to patients inthe interest of transparency. However, be advised this is a medical document. It is intended as peer to peer communication. It is written in medical language and may contain abbreviations or verbiagethat are unfamiliar. It may appear blunt or direct. Medical documents are intended to carry relevant information, facts as evident, and the clinical opinion of the practitioner. documented in this encounter Nursing Notes * Shanika Ortega RN - 04/27/2025 11:14 PM EST Patient left after signing AMA papers and educated on signs of labor, infection, and abruption by Dr. Kuhn. Dr. Kuhn ordered oral antibiotics to patients home pharmacy. * Kaleigh Dexter RN - 04/27/2025 11:45 AM EST Patient expressing desire to leave [facility] due to childcare and social issues at home. Patient states she has a 1-year old at home that has medical needs as well as a 7-year old. RN spoke with patient for a while about her concerns. Patient understands risks of leaving, but does not have support systems at home to facilitate her being in-house until delivery. Dr. Flood called to bedside to talk with patient about leaving. Discussed in depth risks of delivery of one or both babies, as well as risk of infection to mother. Patient expressed interest in going to [facility] with her kids. RN called social work, who said that unless there's a sibling admitted to the hospital, children are not allowed to stay at [facility]. Social work to come speak with patient. Patient upset about the choice she has to make regarding staying or leaving. NICU to also come speak with patient about expectations. documented in this encounter Miscellaneous Notes * Plan of Care - Shanika Ortega RN - 04/27/2025 9:22 PM EST Problem: Pain Goal: Patient goal is pain score less than 4, able to rest, and participant in treatment plan as appropriate Description: INTERVENTIONS: 1. Encourage patient or legal software support representative to report early pain and ask for pain medicine when needed 2. Assess pain using appropriate pain scale and include the scale used when documenting 3. Administer analgesics based on type and severity of pain and evaluate response within appropriate time frame 4. Implement non-pharmacological measures as appropriate and evaluate response 5. Consider cultural and social influences on pain and pain management 6. Notify LIP if interventions ineffective or patient reports new pain 7. Monitor vital signs including pulse ox, end-tidal CO2 based on pain intervention 8. Reassess pain per policy 9. Teach patient or legal software support representative interventions for comforting Outcome: Progressing Note: Evaluation of progress towards goal: Patient verbalizes tolerable level of pain at this time.Pain medications will be given as needed. Problem: Safety Goal: Patient will be injury free during hospitalization Description: INTERVENTIONS: 1. Assess patient's risk for falls and implement fall prevention plan of care per policy 2. Provide and maintain a safe environment 3. Proper use of double Identifiers 4. Medication administration using the 5 rights 5. Hand hygiene 6. Specimens are labeled at the bedside 7. Instruct patient/ patient software support representative about use of safety devices 8. Include patient/ patient software support representative in decisions related to safety Outcome: Progressing Note: Evaluation of progress towards goal: Safe environment maintained. Medications administered using 5 rights. Fall prevention plan implemented as needed. Problem: Infection Goal: Absence of infection during hospitalization Description: INTERVENTIONS 1. Assess and monitor for signs and symptoms of infection. 2. Monitor lab/diagnostic results. 3. Monitor all insertion sites i.e., indwelling lines, tubes and drains. 4. Monitor endotracheal (as able) and nasal secretions for changes in amount and color. 5. Administer medications as ordered. 6. Instruct and encourage patient and family to use good hand hygiene technique. 7. Identify and instruct patient/patient software support representative in use of appropriate isolation precautionsfor identified infection/symptoms. 8. Provide and discuss with patient/patient software support representative on educational MDRO sheet. 9. Encourage and monitor nutritional status daily and consult copywriter if indicated. 10. Implement neutropenic guidelines as needed. Outcome: Progressing Note: Evaluation of progress towards goal: Patient is free from signs and symptoms of infection. Problem: Knowledge Deficit Goal: Patient/patient software support representative demonstrates understanding of disease process, treatment plan,medications, and discharge instructions Description: INTERVENTIONS 1. Complete learning assessment and assess knowledge base 2. Provide teaching at level of understanding 3. Provide teaching via preferred learning method(s) Outcome: Progressing Note: Evaluation of progress towards goal: Teaching provided as needed at patient's level of understanding. Problem: Discharge Planning Goal: Discharge to post-acute care, other facility, or home with appropriate resources Description: Patient's goal is: INTERVENTIONS 1. Conduct assessment to determine patient/family and health care team treatment goals, and need for post-acute services based on payer coverage, community resources, and patient preferences, and barriers to discharge 2. Coordinate with Social work, Care Navigation, and Utilization Review to arrange appropriate level of services according to patient's needs based on patient preference and payer coverage in collaboration with the physician and health care team 3. Address psychosocial, clinical, and financial barriers to discharge as identified in assessment in conjunction with the patient/family and health care team 4. Consult appropriate ancillary services (i.e.. PT/OT/ST, etc) as needed 5. Communicate with and update the patient/family, physician, and health care team regarding progress on the discharge plan 6. Identify discharge learning needs (meds, wound care, etc). 7. Arrange for needed discharge transportation as appropriate Outcome: Progressing Note: Evaluation of progress towards goal: Appropriate consults done as needed. Discharge learning needs identified. Problem: Multi-Drug Resistant Organism / Rule-Out Infection Prevention Goal: Prevent transmission of infection Description: INTERVENTIONS 1. Place patient in private room or in room with patient with same disease 2. Discard single-use items 3. Clean reusable equipment between patients 4. Wear gloves for direct and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 8:41 AM [facility] LABORATORYGLUCOSE (URINE)DetqavlsZukarbfs63/21/2025 8:41 AM [facility] LABORATORYSpecimen (Source)Anatomical Location / LateralityCollection Method / VolumeCollection TimeReceived TimeUrineUrine / Vutkrrp4304/27/2025 7:56 AM EST04/27/2025 8:24 AM EST Narrative Authorizing ProviderResult TypeResult StatusTannicjenna QUINTEROS ORDERABLES Final ResultPerforming OrganizationAddressCity/State/ZIP CodePhone Number [facility] [address] [place] [address], * Lactate w/ Reflex (04/27/2025 6:25 AM EST)ComponentValueRef RangeTest Method Analysis TimePerformed AtPathologist SignatureLACTATE W/REFLEX1.00.4 - 2.0 mmol/L106/28/2024 7:23 AM [facility] LABORATORYSpecimen (Source)Anatomical Location / LateralityCollection Method / VolumeCollection TimeReceived TimeBloodVenous blood / UnknownVenipuncture / Wtcuzsl9504/27/2025 6:25 AM EST04/27/2025 6:41 AM EST Narrative [facility] - 04/27/2025 7:23 AM EST Result did not trigger repeat Lactate, re-order if needed. Authorizing ProviderResult TypeResult StatusTannicjenna Truong [facility] BLOOD ORDERABLESFinal ResultPerforming OrganizationAddressCity/State/ZIP CodePhone Number [facility] [address] [place] [address], * (ABNORMAL) Comprehensive metabolic panel (04/27/2025 6:25 AM EST)Component ValueRef RangeTest MethodAnalysis TimePerformed AtPathologist SignatureSODIUM 043898 - 146 mmol/L106/28/2024 7:18 AM [facility] POTASSIUM3.93.5 - 5.0 mmol/L106/28/2024 7:18 AM [facility] OSHPONHEZCAQOCGSKT15548 - 109 mmol/L106/28/2024 7:18 AM [facility] LABORATORYCARBON NEJUKJK32(L)22 - 32 mmol/L106/28/2024 7:18 AM [facility] LABORATORYANION GAP85 - 15 mmol/L106/28/2024 7:18 AM [facility] LABORATORYBLOOD UREA UXKGCAEE07 - 23 mg/dL04/27/2025 7:18 AM [facility] LABORATORYCREATININE0.510.40 - 1.00 mg/dL 04/27/2025 7:18 AM [facility] LABORATORYComment:METHOD TRACEABLE TO IDMS NVBNQTNHBFEBRQL609(H)65 - 99 mg/dL04/27/2025 7:18 AM EST [facility] LABORATORYCALCIUM7.1(L)8.5 - 10.5 mg/dL04/27/2025 7:18 AM [facility] LABORATORYTOTAL PROTEIN6.06.0 - 8.0 g/dL 04/27/2025 7:18 AM [facility] LABORATORYALBUMIN3.23.2 - 5.3 g/dL04/27/2025 7:18 AM [facility] LABORATORYALKALINE LXVEVTIFIAJ6557 - 130 U/L106/28/2024 7:18 AM [facility] JLYBBTBQAZJHS26<=41 U/L106/28/2024 7:18 AM [facility] LABORATORYALT4<=31 U/L106/28/2024 7:18 AM [facility] LABORATORYBILIRUBIN,TOTAL0.2(L)0.3 - 1.2 mg/dL04/27/2025 7:18 AM [facility] LABORATORYEGFR Non-Race Dependent>90>=60 ml/min/1.73sq.m 04/27/2025 7:18 AM [facility] LABORATORYComment: Reported eGFR is based on the CKD-EPI 2020 equation that does not use a race coefficient. Specimen (Source)Anatomical Location / LateralityCollection Method / Volume Collection TimeReceived TimeBloodVenous blood / UnknownVenipuncture / Unknown 04/27/2025 6:25 AM EST04/27/2025 6:42 AM EST Narrative Authorizing ProviderResult TypeResult StatusTannice Dionne HUNTER BLOOD ORDERABLESFinal ResultPerforming OrganizationAddressCity/State/ZIP CodePhone Number [facility] [address] [place] [address], * (ABNORMAL) CBC auto differential (04/27/2025 6:25 AM EST)ComponentValueRef RangeTest MethodAnalysis TimePerformed AtPathologist EtlteecgtCHQ72.1(H)4 - 11 10^9/L106/28/2024 6:52 AM [facility] LABORATORYRBC Count3.82 3.8 - 5.2 10^12/L1/ 6:52 AM [facility] Bhfxxaamdu13.3(L)11.7 - 15.5 g/dL04/27/2025 6:52 AM [facility] QCRUULAWMVYqucfnhswq28.3(L)35 - 47 %04/27/2025 6:52 AM [facility] EMSOVMLZIWVCT1301 - 100 fL04/27/2025 6:52 AM [facility] XOQXHZLATCIJA58.627 - 34 pg04/27/2025 6:52 AM [facility] SMMFEXEFSTGKBV88.932 - 36 g/dL04/27/2025 6:52 AM [facility] NIVHPQSDXAOKV84.611.5 - 15 %04/27/2025 6:52 AM [facility] LABORATORYPlatelet Ilgng911177 - 450 10^9L106/28/2024 6:52 AM [facility] LABORATORYMPV8.37 - 12 fL04/27/2025 6:52 AM [facility] LABORATORYNeutrophils %89.5%04/27/2025 6:52 AM [facility] LABORATORYLymphocytes %8.6%04/27/2025 6:52 AM [facility] LABORATORYMonocytes %1.8%04/27/2025 6:52 AM [facility] LABORATORYEosinophils %0.1%04/27/2025 6:52 AM [facility] LABORATORYBasophils %0.0%04/27/2025 6:52 AM [facility] LABORATORYNeutrophils Absolute (A)10.8(H)1.5 - 6.6 10^9/L 04/27/2025 6:52 AM [facility] LABORATORYLymphocytes Absolute 1.01.0 - 3.5 10^9/L106/28/2024 6:52 AM [facility] Monocytes Absolute0.20.0 - 0.9 10^9/L106/28/2024 6:52 AM [facility] LABORATORYEosinophils Absolute0.00.0 - 0.4 10^9/L106/28/2024 6:52 AM EST [facility] LABORATORYBasophils Absolute0.00.0 - 0.2 10^9/L 04/27/2025 6:52 AM [facility] LABORATORYDifferential Type AUTOMATED LOIPGNAOZBLH75/21/2025 6:52 AM [facility] LABORATORYSpecimen (Source)Anatomical Location / LateralityCollection Method / VolumeCollection TimeReceived TimeBloodVenous blood / UnknownVenipuncture / Kprpriv8304/27/2025 6:25 AM EST04/27/2025 6:42 AM EST Narrative Authorizing ProviderResult TypeResult StatusTannicjenna Truong [facility] BLOOD ORDERABLESFinal ResultPerforming OrganizationAddressCity/State/ZIP CodePhone Number [facility] [address] [place] [address], * Light Blue Top (04/27/2025 6:24 AM EST)ComponentValueRef RangeTest Method Analysis TimePerformed AtPathologist SignatureExtra TubeAuto Resulted 04/27/2025 8:01 AM [facility] LABORATORYSpecimen (Source) Anatomical Location / LateralityCollection Method / VolumeCollection Time Received TimeBloodVenous blood / Ryzcwub6304/27/2025 6:24 AM EST04/27/2025 6:42 AM EST Narrative Authorizing ProviderResult TypeResult StatusDavid Kya Cook [facility] BLOOD ORDERABLESFinal ResultPerforming OrganizationAddressCity/State/ZIP CodePhone Number [facility] [address] [place] [address], * Strep B screen (04/27/2025 2:20 AM EST)ComponentValueRef RangeTest Method Analysis TimePerformed AtPathologist SignatureCULTURE RESULTSNEGATIVE FOR GROUP B STREPTOCOCCUS BY NUCLEIC ACID BCOXSVKAVSVJJ35/22/2025 9:39 AM EST [facility] LABORATORYSpecimen (Source)Anatomical Location / LateralityCollection Method / VolumeCollection TimeReceived TimeSwab (Vagina/Rectum)04/27/2025 2:20 AM EST04/27/2025 3:19 AM EST Narrative Authorizing ProviderResult TypeResult StatusTanProvidence VA Medical CenterROBIOLOGY - GENERAL ORDERABLESFinal ResultPerforming OrganizationAddressCity/State/ZIP Code Phone Number [facility] [address] [place] [address], * Chlamydia/GC by PCR Norberto Swab (04/27/2025 2:20 AM EST)ComponentValueRef Range Test MethodAnalysis TimePerformed AtPathologist SignatureCHLAMYDIA DNA(PCR) YgquyzfrRdaalsey80/22/2025 10:39 AM [facility] Comment:Chlamydia trachomatis not detected by nucleic acid amplification. This does not exclude the possibility of infection because results are dependent on adequate specimen collection.GONORRHOEAE DNA(PCR)RiiwmefvEzgzstjd06/22/2025 10:39 AM [facility] LABORATORYComment:Neisseria gonorrhoeae not detected by nucleic acid amplification. This does not exclude the possibil ity of infection because results are dependent on adequate specimen collection.Specimen (Source)Anatomical Location / LateralityCollection Method / VolumeCollection TimeReceived TimeSwabEndocervical structure / Unknown 04/27/2025 2:20 AM EST04/27/2025 3:19 AM EST Narrative Authorizing ProviderResult TypeResult StatusTanProvidence VA Medical CenterROBIOLOGY - GENERAL ORDERABLESFinal ResultPerforming OrganizationAddressCity/State/ZIP Code Phone Number [facility] [address] [place] [address], * Molecular Vaginitis Panel PCR (04/27/2025 2:20 AM EST)ComponentValueRef Range Test MethodAnalysis TimePerformed AtPathologist SignatureBacterial Vaginosis DNANot DetectedNot Acrtpepk47/21/2025 4:27 AM [facility] LABORATORYComment:Indicator DNA target(s) related to bacterial vaginosis organisms, which include: Atopobium vaginae,Atopobium novel species, Megasphaera-1, and Bacterial Vaginosis Associated Bacteria-2 (BVAB-2), is/are Not Detected.Abena species group DNANot DetectedNot Zfxpvywq95/21/2025 4:27 AM [facility] LABORATORYComment:Abena group (C. albicans and/or C. tropicalis and/or C. parapsilosis and/or C. dubliniensis) target DNA is Not Detected.Abena glabrata/krusei DNANot DetectedNot Lutljgnq32/21/2025 4:27 AM [facility] LABORATORYComment:Abena glabrata and/or Abena krusei target DNA is Not Detected.Trichomonas VaginalisNot DetectedNot Xzmctelj73/21/2025 4:27 AM [facility] LABORATORYComment: Trichomonas vaginalis target DNA is Not Detected.Specimen (Source)Anatomical Location / LateralityCollection Method / VolumeCollection TimeReceived Time SwabVaginal structure / Ltcsxpc9304/27/2025 2:20 AM EST04/27/2025 3:19 AM EST Narrative [facility] - 04/27/2025 4:27 AM EST Assay methodology is nucleic acid amplification by real-time PCR, performed on [employer] System. Authorizing ProviderResult TypeResult StatusTannice [facility] MDMICROBIOLOGY - GENERAL ORDERABLESFinal ResultPerforming OrganizationAddressCity/State/ZIP Code Phone Number [facility] [address] [place] [address], * Resp Pathogens Panel/SARS CoV-2 (04/27/2025 2:20 AM EST)ComponentValueRef RangeTest MethodAnalysis TimePerformed AtPathologist SignatureSARS COV 2 BY PCRNot DetectedNot Tfmtitrv03/21/2025 4:21 AM [facility] LABORATORYADENOVIRUSNot DetectedNot Kxdorndk07/21/2025 4:21 AM [facility] LABORATORYCORONAVIRUS 229ENot DetectedNot Ownytnon49/21/2025 4:21 AM [facility] LABORATORYCORONAVIRUS JAQ8Sus DetectedNot Fsylthax12/21/2025 4:21 AM [facility] LABORATORYCORONAVIRUS GP01Akw DetectedNot Rrqyjnwr24/21/2025 4:21 AM [facility] LABORATORYCORONAVIRUS QO46Azn DetectedNot Qlnqtlqe96/21/2025 4:21 AM [facility] LABORATORYHUMAN METAPNEUVIRUSNot DetectedNot Detected 04/27/2025 4:21 AM [facility] LABORATORYRHINO/ENTEROVIRUSNot DetectedNot Ciqwnheq37/21/2025 4:21 AM [facility] INFLUENZA ANot DetectedNot Wfenyarp92/21/2025 4:21 AM [facility] LABORATORYINFLUENZA BNot DetectedNot Jyzswshe89/21/2025 4:21 AM [facility] LABORATORYPARAINFLUENZA 1Not DetectedNot Detected 04/27/2025 4:21 AM [facility] LABORATORYPARAINFLUENZA 2Not DetectedNot Cewtdlga39/21/2025 4:21 AM [facility] PARAINFLUENZA 3Not DetectedNot Xngpaepn25/21/2025 4:21 AM [facility] LABORATORYPARAINFLUENZA 4Not DetectedNot Gxzxfxly23/21/2025 4:21 AM [facility] LABORATORYRESP SYNCYTIAL VIRUSNot DetectedNot Epvycabu58/21/2025 4:21 AM [facility] LABORATORYBORD PARAPERTUSSISNot DetectedNot Zvnlohfb59/21/2025 4:21 AM [facility] LABORATORYBORDETELLA PERTUSSISNot DetectedNot Kihubqfr97/21/2025 4:21 AM [facility] LABORATORYCHLAM.PNEUMONIAENot DetectedNot Zuzwkfte76/21/2025 4:21 AM [facility] LABORATORYMYCOPLASMA PNEUMONIAENot DetectedNot Seezovio45/21/2025 4:21 AM [facility] LABORATORYSpecimen (Source)Anatomical Location / LateralityCollection Method / VolumeCollection TimeReceived TimeSwabNasopharyngeal structure / Peancee3204/27/2025 2:20 AM EST04/27/2025 3:19 AM [facility] LABORATORY - 04/27/2025 4:21 AM [facility] BioFire Respiratory Panel 2.1 (RP2.1) is a multiplexed nucleic acid test intended for the simultaneous qualitative detection and differentiation of nucleic acid from multiple viral and bacterial respiratory organisms, including nucleic acid from Severe Acute Respiratory Syndrome Coronavirus 2 (SARS-CoV-2), in nasopharyngeal swabs obtained from individuals suspected of COVID-19 by their healthcare provider. Testing is limited to laboratories certified under the Clinical Laboratory Improvement Amendments of 1988 (CLIA), to perform high complexity or moderate complexity tests. SARS-CoV-2 RNA and nucleic acids from the other respiratory viral and bacterial organisms identified by this test are generally detectable in nasopharyngeal swabs during the acute phase of infection.The detection and identification of specific viral and bacterial nucleic acids from individuals exhibiting signs and/or symptoms of respiratory infection is indicative of the presence of the identified microorganism and aids in the diagnosis of respiratory infection if used in conjunction with other clinical and epidemiological information. Positive results are indicative of the presence of the identified organism, but do not rule out co-infection with other pathogens. The agent(s) detected by the [employer] RP2.1 may not be the definite cause of disease and clinical correlation with patient history and other diagnostic information is necessary to determine patient infection status. Negative results in the setting of a respiratory illness may be due to infection with pathogens notdetected by this test, or lower respiratory tract infection that may not be detected by a nasopharyngeal specimen. Negative results do not preclude SARS-CoV-2 infection and should not be used as the sole basis for patient management decisions. Negative NASIR-CoV-2 results must be combined with clinical observations, patient history and epidemiological information. Negative results for other organisms identified by the test may require additional laboratory testing when evaluating a patient with possible respiratory tract infection. Authorizing ProviderResult TypeResult Yamila Truong MDMICROBIOLOGY - GENERAL ORDERABLESFinal ResultPerforming OrganizationAddressCity/State/ZIP Code Phone Number [facility] [address] [place] [address], * Rupture of membrane (ALL) (04/27/2025 1:43 AM EST)ComponentValueRef RangeTest MethodAnalysis TimePerformed AtPathologist SignatureRUPTURE OF QNPGLPHZWwbuatpcFbeygrfy75/21/2025 3:08 AM [facility] LABORATORYSpecimen (Source)Anatomical Location / LateralityCollection Method / VolumeCollection TimeReceived TimeSwabVaginal structure / Bpesozs9704/27/2025 1:43 AM EST04/27/2025 2:13 AM EST Narrative Authorizing ProviderResult TypeResult StatusGaby Truong MDBODY FLUIDS AND STOOLS ORDERABLESFinal ResultPerforming OrganizationAddressCity/State/ZIP Code Phone Number [facility] [address] [place] [address], * Antibody ID (04/27/2025 12:13 AM EST)ComponentValueRef RangeTest Method Analysis TimePerformed AtPathologist SignatureAntibody IDPassive D Antibody, Patient Received RHIG04/27/2025 2:35 AM ESTTTH CARLOS - GINNYKYSpecimen (Source) Anatomical Location / LateralityCollection Method / VolumeCollection Time Received TimeBloodVenous blood / UnknownVenipuncture / Dwshtaz3004/27/2025 12:13 AM EST04/27/2025 12:19 AM EST Narrative Authorizing ProviderResult TypeResult StatusGaby Truong MDBLOOD BANK TEST ORDERABLESFinal ResultPerforming OrganizationAddressCity/State/ZIP CodePhone Number [facility] [address] [place] [address], [place] * Hepatitis C Virus Quantitative by NAAT (04/27/2025 12:13 AM EST)ComponentValue Ref RangeTest MethodAnalysis TimePerformed AtPathologist SignatureHCV InterpretationNot DetectedNot Tqhdifjc34/22/2025 10:38 AM [facility] LABORATORYSpecimen (Source)Anatomical Location / LateralityCollection Method / VolumeCollection TimeReceived TimeBloodVenous blood / Unknown Venipuncture / Hnwjzka3604/27/2025 12:13 AM EST04/27/2025 12:25 AM EST Narrative Authorizing ProviderResult TypeResult StatusGaby Truong MDLAB BLOOD ORDERABLESFinal ResultPerforming OrganizationAddressCity/State/ZIP CodePhone Number [facility] [address] [place] [address], * Type and screen (04/27/2025 12:13 AM EST)ComponentValueRef RangeTest Method Analysis TimePerformed AtPathologist IcqxlrlkjLSKP48/21/2025 2:18 AM ESTTTH BB - IMXGMKKUHIzmvofmw60/21/2025 2:18 AM ESTTTH BB - WELLSKYAntibody Screen Giwwapag61/21/2025 2:18 AM [facility] - JEREMIESpecimen (Source)Anatomical Location / LateralityCollection Method / VolumeCollection TimeReceived Time BloodVenous blood / UnknownVenipuncture / Njlwpsu9704/27/2025 12:13 AM EST 04/27/2025 12:19 AM EST Narrative Authorizing ProviderResult TypeResult StatusTannice Dionne PHILLIPSBLOOD BANK TEST ORDERABLESEdited Result - FinalPerforming OrganizationAddressCity/State/ZIP Code Phone Number [facility] [address] [place] [address], * (ABNORMAL) CBC auto differential (04/27/2025 12:13 AM EST)ComponentValueRef RangeTest MethodAnalysis TimePerformed AtPathologist NntwfmgfsIXD26.74 - 11 10^9L106/28/2024 12:57 AM [facility] LABORATORYRBC Count4.03 3.8 - 5.2 10^12L106/28/2024 12:57 AM [facility] Nfocriwbci29.011.7 - 15.5 g/dL04/27/2025 12:57 AM [facility] AQSKBULPSQGhhddwmnlj42.6(L)35 - 47 %04/27/2025 12:57 AM [facility] NAQOEACNAYWUS9165 - 100 fL04/27/2025 12:57 AM [facility] QDQWIOQVGZXVI39.827 - 34 pg04/27/2025 12:57 AM [facility] AUQCNUPKNNJMYS33.732 - 36 g/dL04/27/2025 12:57 AM [facility] RYCKANONTZEYT58.611.5 - 15 %04/27/2025 12:57 AM [facility] LABORATORYPlatelet Jvxai543548 - 450 10^9/L106/28/2024 12:57 AM [facility] LABORATORYMPV8.87 - 12 fL04/27/2025 12:57 AM [facility] LABORATORYNeutrophils %87.8%04/27/2025 12:57 AM [facility] LABORATORYLymphocytes %10.9%04/27/2025 12:57 AM [facility] LABORATORYMonocytes %1.2%04/27/2025 12:57 AM [facility] LABORATORYEosinophils %0.0%04/27/2025 12:57 AM [facility] LABORATORYBasophils %0.1%04/27/2025 12:57 AM [facility] LABORATORYNeutrophils Absolute (A)9.4(H)1.5 - 6.6 10^9/L106/28/2024 12:57 AM [facility] LABORATORYLymphocytes Absolute1.21.0 - 3.5 10^9L106/28/2024 12:57 AM [facility] LABORATORYMonocytes Absolute0.10.0 - 0.9 10^9L106/28/2024 12:57 AM [facility] LABORATORYEosinophils Absolute0.00.0 - 0.4 10^9/L106/28/2024 12:57 AM [facility] LABORATORYBasophils Absolute0.00.0 - 0.2 10^9/L106/28/2024 12:57 AM [facility] LABORATORYDifferential TypeAUTOMATED BONDYQWEBZJD98/21/2025 12:57 AM [facility] LABORATORYSpecimen (Source)Anatomical Location / LateralityCollection Method / VolumeCollection TimeReceived TimeBloodVenous blood / UnknownVenipuncture / Mrexnnr1004/27/2025 12:13 AM EST04/27/2025 12:25 AM EST Narrative Authorizing ProviderResult TypeResult StatusTannice Dionne HUNTER BLOOD ORDERABLESFinal ResultPerforming OrganizationAddressCity/State/ZIP CodePhone Number [facility] [address] [place] [address], * (ABNORMAL) Comprehensive metabolic panel (04/27/2025 12:13 AM EST)Component ValueRef RangeTest MethodAnalysis TimePerformed AtPathologist SignatureSODIUM 246219 - 146 mmol/L106/28/2024 12:55 AM [facility] POTASSIUM4.03.5 - 5.0 mmol/L106/28/2024 12:55 AM [facility] GCHDAVDHICRUVOKSJK41384 - 109 mmol/L106/28/2024 12:55 AM [facility] LABORATORYCARBON ECIQIWA36(L)22 - 32 mmol/L106/28/2024 12:55 AM [facility] LABORATORYANION ZZL876 - 15 mmol/L106/28/2024 12:55 AM [facility] LABORATORYBLOOD UREA GJJTPBAK045 - 23 mg/dL 04/27/2025 12:55 AM [facility] LABORATORYCREATININE0.510.40 - 1.00 mg/dL04/27/2025 12:55 AM [facility] LABORATORYComment: METHOD TRACEABLE TO IDAR [id number](H)65 - 99 mg/dL04/27/2025 12:55 AM [facility] LABORATORYCALCIUM8.0(L)8.5 - 10.5 mg/dL04/27/2025 12:55 AM [facility] LABORATORYTOTAL PROTEIN6.56.0 - 8.0 g/dL 04/27/2025 12:55 AM [facility] LABORATORYALBUMIN3.73.2 - 5.3 g/dL04/27/2025 12:55 AM [facility] LABORATORYALKALINE [id number] - 130 U/L106/28/2024 12:55 AM [facility] [id number]<=41 U/L106/28/2024 12:55 AM [facility] LABORATORYALT7<=31 U/L106/28/2024 12:55 AM [facility] LABORATORYBILIRUBIN,TOTAL0.2(L)0.3 - 1.2 mg/dL04/27/2025 12:55 AM [facility] LABORATORYEGFR Non-Race Dependent>90>=60 ml/min/1.73sq.m 04/27/2025 12:55 AM [facility] LABORATORYComment: Reported eGFR is based on the CKD-EPI 2020 equation that does not use a race coefficient. Specimen (Source)Anatomical Location / LateralityCollection Method / Volume Collection TimeReceived TimeBloodVenous blood / UnknownVenipuncture / Unknown 04/27/2025 12:13 AM EST04/27/2025 12:25 AM EST Narrative Authorizing ProviderResult TypeResult StatusTansarwat HUNTER BLOOD ORDERABLESFinal ResultPerforming OrganizationAddressCity/State/ZIP CodePhone Number [address] [address] [place] [address], * Syphilis Total (Unknown Syphilis Status) (04/27/2025 12:13 AM EST)Component ValueRef RangeTest MethodAnalysis TimePerformed AtPathologist Signature SYPHILIS TOTAL<0.2<=0.8 AI04/27/2025 7:02 AM [facility] (Source)Anatomical Location / LateralityCollection Method / VolumeCollection TimeReceived TimeBloodVenous blood / UnknownVenipuncture / Liyyytx3504/27/2025 12:13 AM EST04/27/2025 12:25 AM EST Narrative [facility] - 04/27/2025 7:02 AM EST NON REACTIVE No serologic evidence of infection to Treponema pallidum. Repeat testing may be considered in patients with suspected acute or primary syphilis in 2 to 4 weeks. Authorizing ProviderResult TypeResult StatusTansarwat HUNTER BLOOD ORDERABLESFinal ResultPerforming OrganizationAddressCity/State/ZIP CodePhone Number [facility] [address] [place] [address] [address] [place] [address], * PST TOP (04/27/2025 12:08 AM EST)ComponentValueRef RangeTest MethodAnalysis TimePerformed AtPathologist SignatureExtra TubeAuto Qdujenwa00/21/2025 2:02 AM [facility]YSpecimen (Source)Anatomical Location / LateralityCollection Method / VolumeCollection TimeReceived TimeBloodVenous blood / Jjoiywv7804/27/2025 12:08 AM EST04/27/2025 12:26 AM EST Narrative Authorizing ProviderResult TypeResult StatusDavid A Cook MDLAB BLOOD ORDERABLESFinal ResultPerforming OrganizationAddressCity/State/ZIP CodePhone Number [facility] [address] [place] [address], * Light Blue Top (04/27/2025 12:08 AM EST)ComponentValueRef RangeTest Method Analysis TimePerformed AtPathologist SignatureExtra TubeAuto Resulted 04/27/2025 2:02 AM [facility] (Source) Anatomical Location / LateralityCollection Method / VolumeCollection Time Received TimeBloodVenous blood / Xyzfeuf2204/27/2025 12:08 AM EST04/27/2025 12:26 AM EST Narrative Authorizing ProviderResult TypeResult StatusDavid Kya Cook New WindLAB BLOOD ORDERABLESFinal ResultPerforming OrganizationAddressCity/State/ZIP CodePhone Number [facility] [address] [place] [address], documented in this encounter Visit Diagnoses Diagnosis Premature rupture of membranes- Primary Premature rupture of membranes in , unspecified as to episode of care premature rupture of membranes (PPROM) with unknown onset of labor premature rupture of membranes in third trimester, unspecified duration to onset of labor documented in this encounter Admitting Diagnoses Diagnosis Premature rupture of membranes Premature rupture of membranes in , unspecified as to episode of care documented in this encounter Administered Medications Medication OrderMAR ActionAction DateDoseRateSite acetaminophen (TYLENOL EXTRA STRENGTH) tablet 1,000 mg 1,000 mg, oral, Every 6 hours PRN, mild pain - pain scale 1-3, headaches, Starting on 04/26/25 at 2359, L&D Pre-Delivery Given04/27/2025 4:03 PM EST1,000 dsIggji2704/27/2025 7:03 AM EST1,000 mgGiven 04/27/2025 2:24 AM EST1,000 mg amoxicillin (AMOXIL) capsule 250 mg 250 mg, oral, Every 8 hours, First dose on Mon04/30/25 at 0000, For 15 doses, L&D Pre-Delivery, Begin oral amoxicillin regimen after completion of IV ampicillin regimen, Indication: Other, Specify: OB PROM ampicillin (OMNIPEN) 2,000 mg in sodium chloride 0.9 % 100 mL IVPB W/ADAPTER 2,000 mg, intravenous, at 200 mL/hr, Administer over 30 Minutes, Every 6 hours, First dose on 04/27/25 at 0300, For 8 doses, L&D Pre-Delivery, For Vial-2-Bag: Attach bag and vial to adapter -Use immediately after activating; dissolve drug prior to administration., Indication: Other, Specify: OB PROM New Bag04/27/2025 9:12 PM EST2,000 mg200 mL/hrNew Bag04/27/2025 3:16 PM EST2,000 mg200 mL/hrRate/Dose Oqzwvr8204/27/2025 9:10 AM RPO018 mL/hr betamethasone acet & sod phos (CELESTONE) injection 12 mg 12 mg, intramuscular, Once, On 04/27/25 at 1730, For 1 dose, May alter blood glucose or insulinrequirements. Given04/27/2025 7:25 PM EST12 mgLeft Ventrogluteal calcium carbonate (TUMS) 200 mg elemental (500 mg) chewable tablet 400 mg 400 mg, oral, Every 8 hours PRN, indigestion, heartburn, GI Distress, Starting on 04/26/25 at 2359, L&D Pre-Delivery, Ordered as elemental calcium. 200 mg elemental calcium = 500 mg calcium carbonate Given04/27/2025 9:16 PM [id number] clJqgqz5304/27/2025 1:55 AM IDE346 mg calcium gluconate injection 1,000 mg 1,000 mg, intravenous, As needed, For Magnesium Toxicity (severe respiratory depression, decreased level of consciousness, blurred vision, slurred speech, nausea, respiratory depression, and/or cardiac arrest, Starting on 04/27/25 at 0137, L&D Pre-Delivery, Administer slow IV push over 3 minutes VESICANT (RED) dextrose (GLUTOSE) 40 % gel 15 g 15 g, oral, As needed, low blood sugar, blood glucose less than 70 mg/dL, Starting on 04/27/25 at 0200, If patient conscious and taking PO. If blood glucose is not greater than 70 mg/dL after initial treatment, repeat treatment. dextrose 5 % (D5W) infusion 100 mL/hr, intravenous, Continuous PRN, blood glucose less than 70 mg/dL, Starting on 12/21/25 at 0200, For 365 days, Use immediately following dextrose 50% or glucagon treatment for patients whoare unconscious or NPO. Contact prescriber for additional orders. If blood glucose is not greater than 70 mg/dL after initial treatment, repeat treatment. dextrose 50 % in water (D50W) 50% solution 25 mL 25 mL, intravenous, As needed, low blood sugar, blood glucose less than 70 mg/dL and unconscious orNPO with IV access, Starting on Mon04/27/25 at 0200, Push over 1-3 minutes STAT. If conscious and not NPO, immediately follow with meal tray or high protein (7 grams) snack if tray not available. IfNPO, initiate 5% dextrose in water at 100 mL/hr and contact prescriber for additional orders. If blood glucose is not greater than 70 mg/dL after initial treatment, repeat treatment. VESICANT (RED) Warning: HYPERTONIC solution. erythromycin (E-MYCIN) EC tablet 250 mg 250 mg, oral, Every 8 hours scheduled, First dose on Mon04/30/25 at 0600, For 15 doses, L&D Pre-Delivery, Begin oral erythromycin regimen after completion of IV erythromycin regimen Do not crushor chew. erythromycin (ERYTHROCIN) 250 mg in sodium chloride 0.9 % 100 mL IVPB 250 mg, intravenous, at 105 mL/hr, Administer over 60 Minutes, Every 6 hours, First dose on Mon04/27/25 at 0300, For 8 doses, L&D Pre-Delivery New 04/27/2025 9:48 PM [id number] mg105 mL/hrNe 04/27/2025 4:04 PM BQP493 mg 105 mL/hrNew 04/27/2025 9:52 AM [id number] mg105 mL/hr glucagon HCL injection 1 mg 1 mg, intramuscular, As needed, low blood sugar, blood glucose less than 70 mg/dL and unconscious or NPO without IV access., Starting on Mon04/27/25 at 0200, If conscious and not NPO, immediately follow with meal tray or high protein (7Grams) snack if tray not available. If NPO, initiate IV 5% Dext pawan/Water at 100 mL/hr and contact prescriber for additional orders. If blood glucose is not greater than 70 mg/dL after initial treatment, repeat treatment. lactated ringers bolus 1,000 mL, intravenous, at 984 mL/hr, Administer over 61 Minutes, Once, On 04/27/25 at 0545, For1 dose Cbtkooxvs23/21/2025 6:47 AM YKX683 mL/hrRate/Dose Zfusqp4104/27/2025 6:00 AM EST 984 mL/hrNew Bag04/27/2025 5:40 AM EST1,000 mL984 mL/hr lactated ringers infusion 250 mL/hr, intravenous, Continuous PRN, to improve utero-placental perfusion and/or relieve cord compression, Starting on 04/26/25 at 2359, For 1 day, L&D Pre-Delivery lactated ringers infusion 75 mL/hr, intravenous, Continuous, Starting on 04/27/25 at 0430, For 1 day Mfiooswqg62/21/2025 10:52 AM EST75 mL/clFghdihedi18/21/2025 9:35 AM EST75 mL/hr Elwzzgkqm96/21/2025 8:08 AM EST75 mL/hr75 mL/hr magnesium sulfate 20 gram/500 mL (4 %) infusion - Pyxis Override Pull Starting on 04/27/25 at 0019, For 1 dose, Jemima Casper: cabinet override magnesium sulfate infusion 20 grams/500 mL in iso-osmotic water (40 mg/mL premix) 2 g/hr (50 mL/hr), intravenous, Continuous, Starting on 04/27/25 at 0145, For 5 days, L&D Pre-Delivery, Stop magnesium sulfate infusion if patient symptomatic of Magnesium Toxicity (severe respiratory depression, decreased level of consciousness, blurred vision, slurred speech, nausea, respiratory depression, and/or cardiac arrest) New 04/27/2025 1:51 AM EST2 g/hr50 mL/hr ondansetron (PF) (ZOFRAN) injection 4 mg 4 mg, intravenous, Once, On 04/27/25 at 0545, For 1 dose, Intravenous administration preferred to be given over 2-5 minutes. Given04/27/2025 5:35 AM EST4 mg PNV,calcium 23-damp-mmkqj acid ( PLUS) 27 mg iron- 1 mg tablet 1 tablet 1 tablet, oral, Daily, First dose on Mon04/27/25 at 0900, L&D Pre-Delivery Given04/27/2025 9:08 AM EST1 tablet sodium chloride 0.9 % flush 3 mL 3 mL, intravenous, Every 8 hours, First dose on Mon04/27/25 at 0015, L&D Pre- Delivery, Flush peripheral line per protocol Given04/27/2025 5:08 PM EST3 oYUqmfr4204/27/2025 9:07 AM EST3 mL sodium chloride 0.9 % flush 3 mL 3 mL, intravenous, As needed, line care, to maintain patency, Starting on Mon04/27/25 at 0000, L&D Pre-Delivery valACYclovir (VALTREX) tablet 1,000 mg 1,000 mg, oral, 2 times daily, First dose on Mon04/27/25 at 0930, Look-alike/sound-alike medication - verify indication for use., Indication: Mucocutaneous HSV Given04/27/2025 9:13 PM EST1,000 pzYgugm1504/27/2025 11:07 AM EST1,000 mg documented in this encounter Active and Recently Administered Medications Times are shown in EST.Medication Order/ amoxicillin (AMOXIL) capsule 250 mg(Linked Group 1) 250 mg, oral, Every 8 hours, First dose on Mon04/30/25 at 0000, For 15 doses, L&D Pre-Delivery, Begin oral amoxicillin regimen after completion of IV ampicillin regimen, Indication: Other, Specify: OB PROM ampicillin (OMNIPEN) 2,000 mg in sodium chloride 0.9 % 100 mL IVPB W/ADAPTER (Linked Group 1) 2,000 mg, intravenous, at 200 mL/hr, Administer over 30 Minutes, Every 6 hours, First dose on Mon04/27/25 at 0300, For 8 doses, L&D Pre-Delivery, For Vial-2-Bag: Attach bag and vial to adapter -Use immediately after activating; dissolve drug prior to administration., Indication: Other, Specify: OB PROM * 0307 (New Bag - Provider: Kenia Perez RN) * 0326 (Rate/Dose Verify - Provider: Kenia ePrez RN) * 0337 (Stop Bag - Provider: Kenia Perez RN) * 0337 (Stop Bag - Provider: Kenia Perez, RN) * 0905 (New Bag - Provider: Kaleigh Dexter, RN) * 0910 (Rate/Dose Verify - Provider: Kaleigh Dexter RN) * 0935 (Stop Bag - Provider: Kaleigh Dexter RN) * 0935 (Stop Bag - Provider: Kaleigh Dexter, RN) * 1516 (New Bag - Provider: Kaleigh Dexter RN) * 1546 (Stop Bag - Provider: Jemima Weaver, RN) * 211 (New Bag - Provider: Shanika Ortega, RN) * 214 (Stop Bag - Provider: Shanika Ortega, RN) betamethasone acet & sod phos (CELESTONE) injection 12 mg (COMPLETED) 12 mg, intramuscular, Once, On Mon04/27/25 at 1730, For 1 dose, May alter blood glucose or insulinrequirements. * 1925 (Given - Provider: Shanika Ortega, RN) erythromycin (E-MYCIN) EC tablet 250 mg(Linked Group 1) 250 mg, oral, Every 8 hours scheduled, First dose on Mon04/30/25 at 0600, For 15 doses, L&D Pre-Delivery, Begin oral erythromycin regimen after completion of IV erythromycin regimen Do not crushor chew. erythromycin (ERYTHROCIN) 250 mg in sodium chloride 0.9 % 100 mL IVPB(Linked Group 1) 250 mg, intravenous, at 105 mL/hr, Administer over 60 Minutes, Every 6 hours, First dose on Mon04/27/25 at 0300, For 8 doses, L&D Pre-Delivery * 0348 (New Bag - Provider: Kenia Perez RN) * 0400 (Rate/Dose Verify - Provider: Kenia Perez RN) * 0448 (Stop Bag - Provider: Kenia Perez, KLEVER) * 0952 (New Bag - Provider: Kaleigh Dexter, KLEVER) * 1052 (Stop Bag - Provider: Kaleigh Dexter, RN) * 1604 (New Bag - Provider: Jemima Weaver, RN) * 1704 (Stop Bag - Provider: Shanika Ortega, RN) * 2148 (New Bag - Provider: Shanika Ortega, RN) * 2248 (Stop Bag - Provider: Shanika Ortega, RN) lactated ringers bolus (COMPLETED) 1,000 mL, intravenous, at 984 mL/hr, Administer over 61 Minutes, Once, On 04/27/25 at 0545, For1 dose * 0540 (New Bag - Provider: Kenia Perez RN) * 0600 (Rate/Dose Verify - Provider: Kenia Perez RN) * 0641 (Stop Bag - Provider: Kaleigh Dexter RN) * 0647 (Restarted - Provider: Kaleigh Dexter RN) * 0700 (Stop Bag - Provider: Kaleigh Dexter RN) * 0808 (Stop Bag - Provider: Kaleigh Dexter RN) ondansetron (PF) (ZOFRAN) injection 4 mg (COMPLETED) 4 mg, intravenous, Once, On 04/27/25 at 0545, For 1 dose, Intravenous administration preferred to be given over 2-5 minutes. * 0535 (Given - Provider: Kenia Perez RN) PNV,calcium 90-fcoo-lqdsw acid ( PLUS) 27 mg iron- 1 mg tablet 1 tablet 1 tablet, oral, Daily, First dose on 04/27/25 at 0900, L&D Pre-Delivery * 0908 (Given - Provider: Kaleigh Dexter RN) sodium chloride 0.9 % flush 3 mL 3 mL, intravenous, Every 8 hours, First dose on 04/27/25 at 0015, L&D Pre- Delivery, Flush peripheral line per protocol * 0015 (Not Given - Provider: Kenia Perez RN - Reason: IV infusing) * 0907 (Given - Provider: Kaleigh Dexter RN) * 1708 (Given - Provider: Kaleigh Dexter RN) valACYclovir (VALTREX) tablet 1,000 mg 1,000 mg, oral, 2 times daily, First dose on 04/27/25 at 0930, Look-alike/sound-alike medication - verify indication for use., Indication: Mucocutaneous HSV * 1107 (Given - Provider: Kaleigh Dexter RN) * 2113 (Given - Provider: Shanika Ortega RN) Medication Order// lactated ringers infusion (CANCELED) 75 mL/hr, intravenous, Continuous, Starting on 04/27/25 at 0430, For 1 day * 0538 (New Bag - Provider: Kenia Perez RN) * 0540 (Stop Bag - Provider: Kenia Perez RN) * 0808 (Restarted - Provider: Kaleigh Dexter RN) * 0905 (Paused - Provider: Kaleigh Dexter, RN) * 0935 (Restarted - Provider: Kaleigh Dexter, RN) * 0952 (Paused - Provider: Kaleigh Dexter, RN) * 1052 (Restarted - Provider: Kaleigh Dexter, RN) * 1108 (Stop Bag - Provider: Kaleigh Dexter RN) magnesium sulfate infusion 20 grams/500 mL in iso-osmotic water (40 mg/mL premix) (CANCELED) 2 g/hr (50 mL/hr), intravenous, Continuous, Starting on 04/27/25 at 0145, For 5 days, L&D Pre-Delivery, Stop magnesium sulfate infusion if patient symptomatic of Magnesium Toxicity (severe respiratory depression, decreased level of consciousness, blurred vision, slurred speech, nausea, respiratory depression, and/or cardiac arrest) * 0151 (New Bag - Provider: Kenia Perez RN) * 0658 (Handoff - Provider: Kaleigh Dexter RN) * 0909 (Stop Bag - Provider: Kaleigh Dexter RN) Medication Order acetaminophen (TYLENOL EXTRA STRENGTH) tablet 1,000 mg 1,000 mg, oral, Every 6 hours PRN, mild pain - pain scale 1-3, headaches, Starting on 04/26/25 at 2359, L&D Pre-Delivery * 0224 (Given - Provider: Kneia Perez RN) * 0703 (Given - Provider: Kaleigh Dexter, RN) * 1603 (Given - Provider: Jemima Weaver RN) calcium carbonate (TUMS) 200 mg elemental (500 mg) chewable tablet 400 mg 400 mg, oral, Every 8 hours PRN, indigestion, heartburn, GI Distress, Starting on 04/26/25 at 2359, L&D Pre-Delivery, Ordered as elemental calcium. 200 mg elemental calcium = 500 mg calcium carbonate * 0155 (Given - Provider: Kenia Perez RN) * 2116 (Given - Provider: Shanika Ortega RN) calcium gluconate injection 1,000 mg 1,000 mg, intravenous, As needed, For Magnesium Toxicity (severe respiratory depression, decreased level of consciousness, blurred vision, slurred speech, nausea, respiratory depression, and/or cardiac arrest, Starting on 04/27/25 at 0137, L&D Pre-Delivery, Administer slow IV push over 3 minutes VESICANT (RED) dextrose (GLUTOSE) 40 % gel 15 g 15 g, oral, As needed, low blood sugar, blood glucose less than 70 mg/dL, Starting on 04/27/25 at 0200, If patient conscious and taking PO. If blood glucose is not greater than 70 mg/dL after initial treatment, repeat treatment. dextrose 5 % (D5W) infusion 100 mL/hr, intravenous, Continuous PRN, blood glucose less than 70 mg/dL, Starting on 04/27/25 at 0200, For 365 days, Use immediately following dextrose 50% or glucagon treatment for patients whoare unconscious or NPO. Contact prescriber for additional orders. If blood glucose is not greater than 70 mg/dL after initial treatment, repeat treatment. dextrose 50 % in water (D50W) 50% solution 25 mL 25 mL, intravenous, As needed, low blood sugar, blood glucose less than 70 mg/dL and unconscious orNPO with IV access, Starting on 04/27/25 at 0200, Push over 1-3 minutes STAT. If conscious and not NPO, immediately follow with meal tray or high protein (7 grams) snack if tray not available. IfNPO, initiate 5% dextrose in water at 100 mL/hr and contact prescriber for additional orders. If blood glucose is not greater than 70 mg/dL after initial treatment, repeat treatment. VESICANT (RED) Warning: HYPERTONIC solution. glucagon HCL injection 1 mg 1 mg, intramuscular, As needed, low blood sugar, blood glucose less than 70 mg/dL and unconscious or NPO without IV access., Starting on 04/27/25 at 0200, If conscious and not NPO, immediately follow with meal tray or high protein (7Grams) snack if tray not available. If NPO, initiate IV 5% Dext pawan/Water at 100 mL/hr and contact prescriber for additional orders. If blood glucose is not greater than 70 mg/dL after initial treatment, repeat treatment. lactated ringers infusion 250 mL/hr, intravenous, Continuous PRN, to improve utero-placental perfusion and/or relieve cord compression, Starting on 04/26/25 at 2359, For 1 day, L&D Pre-Delivery sodium chloride 0.9 % flush 3 mL 3 mL, intravenous, As needed, line care, to maintain patency, Starting on 04/27/25 at 0000, L&D Pre-Delivery Order Group 1: ampicillin (OMNIPEN) 2,000 mg in sodium chloride 0.9 % 100 mL IVPB W/ADAPTERJump to med 2,000 mg, intravenous, at 200 mL/hr, Administer over 30 Minutes, Every 6 hours, First dose on Mon04/27/25 at 0300, For 8 doses, L&D Pre-Delivery, For Vial-2-Bag: Attach bag and vial to adapter -Use immediately after activating; dissolve drug prior to administration., Indication: Other, Specify: OB PROM And erythromycin (ERYTHROCIN) 250 mg in sodium chloride 0.9 % 100 mL IVPBJump to med 250 mg, intravenous, at 105 mL/hr, Administer over 60 Minutes, Every 6 hours, First dose on Mon04/27/25 at 0300, For 8 doses, L&D Pre-Delivery And amoxicillin (AMOXIL) capsule 250 mgJump to med 250 mg, oral, Every 8 hours, First dose on Mon04/30/25 at 0000, For 15 doses, L&D Pre-Delivery, Begin oral amoxicillin regimen after completion of IV ampicillin regimen, Indication: Other, Specify: OB PROM And erythromycin (E-MYCIN) EC tablet 250 mgJump to med 250 mg, oral, Every 8 hours scheduled, First dose on Mon04/30/25 at 0600, For 15 doses, L&D Pre-Delivery, Begin oral erythromycin regimen after completion of IV erythromycin regimen Do not crushor chew. documented in this encounter Additional Health Concerns InfectionOnset DateLast IndicatedResolved TimeRespiratory Rule-Out04/27/2025 4:21 AM ESTAssessmentNoted TimePHQ-9 Depression Total Score: 3:04 PM EDTA Body Mass Index follow-up plan has been documented for the xsgwhwp5109/11/2018 4:32 PM EDTdocumented as of this encounter Care Teams Team MemberRelationshipSpecialtyStart DateEnd Date Rebecca Rizvi APRN-JEYSON [address] [place] [id number] PCP - GeneralNurse Practitioner08/23/22documented as of this encounter
--- NOTE | 2025-04-30 | US_ITS ---
[address] [address] Patient Name: BRENDA LOGAN MRN: [id number] date: 1990 Sex: F Assigned Patient Location: [facility] Current Patient Location: [facility] Accession/Order Number: [id number] Exam Date: 04/30/2025 11:08 Report Date: 04/30/2025 12:06 At the request of: MAMADOU TOSCANO DO Procedure: US OB BPP w non-stress BIOPHYSICAL PROFILE: CLINICAL INFORMATION: Twin gestation with known demise of fetus A COMPARISON: 04/26/2025 There is a twin with known demise of fetus A. Fetus A is in breech . No cardiac activity is documented. Fetus B is in cephalic presentation and has a heart rate of 141 beats per minute. The reported gestational age is 29 weeks 0 days. FINDINGS (fetus B): TONE: 1 or more episodes of activity extension and flexion of extremity or opening and closing of the hand [Y] 2/2 GROSS BODY MOVEMENTS: 3 or more discrete body or limb movements [Y] 2/2 BREATHING MOVEMENTS: 1 or more episodes of breathing lasting at least 30 seconds [Y] 2/2 PAMELA: A single deepest vertical pocket of amniotic fluid greater than 2 cm [Y] 2/2 PAMELA: 13.0 cm Total score: 8/8 US/ OB BPP w non-stress IMPRESSION: TWIN WITH DEMISE OF FETUS A. NORMAL BIOPHYSICAL PROFILE FOR FETUS B. Impression dictated by: Malena Salcido M.D. 04/30/2025 12:06 PM Dictation Location: [facility] Electronically authenticated by: [id number] Y Date: 04/30/2025 12:06
--- OUTSIDE RECORDS SUMMARY | 2025-04-30 07:50 | XMS_ITS ---
Author Organization [place] [facility] tem Address [id number] [place] [address] Care Team Providers Care Video Operator Name Role Phone Rebecca Rizvi APRN-JEYSON Primary Care Provider Transitional Care Management Status:Closed (Closed) Start date:04/27/2025 Enrollment date:04/27/2025 End date:04/28/2025 Close reason:Does not meet criteria Continued Care and Services Coordination
--- OUTSIDE RECORDS SUMMARY | 2025-04-30 07:50 | XMS_ITS | Encounter Summary ---
Author Organization Coraid tem Address [id number] [address] [place] [address] Care Team Providers Care Knotting Machine Operator Name Role Phone Rebecca Rizvi BLANCA-TOOL LATHE OPERATOR Primary Care Provider Encounter Details DateTypeDepartmentCare Team (Latest Contact Info)Hctmdozlbhf31/23/2025[facility] [address] [place] [phone] Opal Herndon, RN Social History Tobacco UseTypesPacks/DayYears UsedDateSmoking Tobacco: FormerCigarettes0.58.1 [...] care, and heating?Not hard at all05/07/2024HQ-2AnswerDate RecordedTotal Msewn647PRAPARE - TransportationAnswerDate RecordedIn the past 12 months, has lack of transportation kept you from medical appointments or from getting medications?No 03/28/2024In the past 12 months, has lack of transportation kept you from meetings, work, or from getting things needed for daily living?No03/28/2024 [place] Depression ScaleAnswerDate RecordedEdinburgh Depression Scale Dojmg569The thought of harming myself has occurred to [...] a household?No4Childcare AnswerDate RecordedDo problems getting childcare center director make it difficult for you to work or study?No05/07/2024EmploymentAnswerDate RecordedEmploymentUnknown 10/15/2018Hunger ScreeningAnswerDate RecordedWithin the past 12 months we worried whether our food would run out before we got money to buy more.Never True03/11/2025Within the past 12 months the food we bought just didn't last and we didn't have money to get more.Never True03/11/2025Purpose - LifeAnswerDate RecordedPurpose and direction in rkmrQnkzzfs09/10/2021Estimated Date of JtfnlklcFarkwqpnYpf53/11/2026Based on UltrasoundSex and Gender InformationValue Date RecordedSex Assigned at CtftpLxwbjb95/02/2022 7:15 PM EDTLegal SexFemale 12/09/2014 2:44 PM EDTGender CsdnnsgqRtgevh27/02/2022 7:15 PM EDTSexual DeobqzmxtvgHarcnadx49/02/2022 7:15 PM EDTdocumented as of this encounter Miscellaneous Notes * Telephone Encounter - Opal Herndon RN - 04/29/2025 3:15 PM EST Prior authorization done on covermymeds. Waiting for approval. Patient notified it could take 24-48hours to be completed. documented in this encounter Plan of Treatment DateTypeDepartmentCare Team (Latest Contact Info)Jgtmztlqoub57/08/2026 8:30 AM ESTAppointment [facility] US Imaging [address] [place] [address] 05/15/2025 11:00 AM ESTOffice Visit Maternal- Medicine at [facility] [address] [place] [address] Charlene Lees MD [address], [address] [place] [address] 11/04/2025 4:00 PM EDTOffice Visit [facility] Family Medicine [address] [place] [phone] Rebecca Rizvi APRN-CNP [address] [place] [phone] documented as of this encounter Visit Diagnoses Not on filedocumented in this encounter Additional Health Concerns AssessmentNoted TimePHQ-9 Depression Total Score: 3:04 PM EDTA Body Mass Index follow-up plan has been documented for the gdxrpfp7309/11/2018 4:32 PM EDTdocumented as of this encounter Care Teams Team MemberRelationshipSpecialtyStart DateEnd Date Rebecca Rizvi APRN-CNP [address] [place] [phone] PCP - GeneralNurse Practitioner08/23/22documented as of this encounter
--- OUTSIDE RECORDS SUMMARY | 2025-04-30 07:51 | XMS_ITS | Encounter Summary ---
Author Organization [facility] Address [address] [place] [address] Care Team Providers Care Welding Machine Operator Electro Gas Name Role Phone Rebecca Rizvi MD Primary Care Provider [phone] Encounter Details DateTypeDepartmentCare Team (Latest Contact Info)Pwlzvdfmrzf52/20/2025linisync Result Encounter [facility] External Department Unsolicited Mamadou Hayden, DO [address] [facility] [address] [place], [facility]11 Social History Tobacco UseTypesPacks/DayYears UsedDateSmoking Tobacco: Never Assessed Estimated Date of RahrzojbLnlmveerMbt77/11/2026Based on UltrasoundSex and Gender InformationValueDate RecordedSex Assigned at BirthNot on fileLegal SexFemale 07/20/2022 6:43 PM EDTGender IdentityNot on fileSexual OrientationNot on file documented as of this encounter Plan of Treatment DateTypeDepartmentCare Team (Latest Contact Info)Esliursifcc85/31/2025 10:20 AM ESTRoutine [facility] PERALTA [address] [place] [address] [place] [address] Jaylin Chung, NATHANIEL [address] [facility] [place] [address] 05/21/2025 3:50 PM ESTRoutine NOMTiffany PERALTA [address] [facility] [place] [address] Mamadou Hayden DO [address] [place] [address] documented as of this encounter Procedures Procedure NamePriorityDate/TimeAssociated DiagnosisCommentsALL CBC WITH AUTO RGKYPrqjzas14/20/2025 6:50 PM EST US OB ONFZCCAA75/20/2025 5:17 PM EST documented in this encounter Results * (ABNORMAL) ALL CBC WITH AUTO DIFF (04/26/2025 6:50 PM EST)ComponentValueRef RangeTest MethodAnalysis TimePerformed AtPathologist SignatureTBH WBC9.14.0 - 11.0 10 3/uLTBHTBH RBC3.77(L)4.20 - 5.40 10 6/uLTBHTBH HGB11.4(L)12.0 - 16.0 g/dLTBHTBH HCT33.1(L)36.0 - 48.0 %TBHTBH MCV87.881.0 - 99.0 fLTBHTBH MCH30.2 26.7 - 34.0 pgTBHTBH MCHC34.429.9 - 35.2 g/dLTBHTBH RDW13.011.0 - 15.0 %TBHTBH UBE355176 - 450 10 3/uLTBHTBH MPV10.59.5 - 13.5 fLTBHNEUTROPHILS PERCENT AUTO 70.143.0 - 75.0 %TBHLYMPHOCYTES PERCENT AUTO21.220.5 - 60.0 %TBHMONOCYTES PERCENT AUTO5.61.7 - 12.0 %TBHTBH EO %1.40.9 - 7.0 %TBHBASOPHILS PERCENT AUTO 0.30.2 - 2.0 %TBHIMMATURE GRANULOCYTES PCT AUTO1.4(H)0.0 - 0.5 %TBHNEUTROPHILS ABSOLUTE AUTO6.41.4 - 6.5 10 3/uLTBHLYMPHOCYTES ABSOLUTE AUTO1.91.2 - 3.8 10 3/uLTBHMONOCYTES ABSOLUTE AUTO0.50.3 - 0.8 10 3/uLTBHTBH EO #0.10.0 - 0.7 10 3/uLTBHBASOPHILS ABSOLUTE AUTO0.00.0 - 0.1 10 3/uLTBHIMMATURE GRANULOCYTES ABS AUTO0.13(H)0.00 - 0.03 10 3/uLTBHSpecimen (Source)Anatomical Location / LateralityCollection Method / VolumeCollection TimeReceived Time04/26/2025 6:50 PM EST04/26/2025 7:23 PM EST Narrative [facility] - 04/26/2025 7:31 PM EST Authorizing ProviderResult TypeResult StatusCorey Jackelyn DOCLINISYNCFinal Result Performing OrganizationAddressCity/State/ZIP CodePhone Number [facility] * US OB PLACENTA (04/26/2025 5:17 PM EST)Anatomical RegionLateralityModality OtherSpecimen (Source)Anatomical Location / LateralityCollection Method / VolumeCollection TimeReceived Time04/26/2025 5:17 PM EST Narrative 04/26/2025 5:[address] [facility] ?[address] ? [place], [place] [address] ? Ultrasound Report ? Signed ? Patient: ELMES,ESE N ?MR#: [id number] ?? : 1990 ?Acct:[id number] ?? Age/Sex: 34 / F ?ADM Date: 04/26/25 ?? Loc: [facility] ??250-1 ? Attending Dr: Mamadou Hayden D.O. ? Ordering Physician: Mamadou Hayden D.O. ?? Date of Service: 04/26/25 ?? Procedure(s): US OB placenta ?? Accession Number(s): [id number] ? cc: Mamadou Hayden D.O.; Rebecca Rizvi PLANT AND EQUIPMENT WORKER ? [facility] ? [address] ? [place] [address] ? Patient Name: ?? ESE BADILLO ? MRN: [id number] ? date: 1990 ?Sex: F ?? Assigned Patient Location: [facility] ?? Current Patient Location: [facility] ?? Accession/Order Number: [id number] ?? Exam Date: 04/26/2025 ??16:29 ?Report Date: 04/26/2025 ??17:17 ? At the request of: ?? MAMADOU ??JACKELYN ??DO ? Procedure: ??US OB placenta ? Placental/cervical ultrasound. ??Extremities for exam: Bleeding and leaking ?? fluid. ??Twin with known demise of baby A. ? COMPARISON: None. ? FINDINGS: Transabdominal imaging of the gravid uterus was obtained. ? Cervical length measures 4.7 cm without evidence of funneling. ??Placenta is ?? posterior location without focal abnormality. ?? heart rate for baby B is ?? 132 bpm. ? US/US OB placenta ?? IMPRESSION: No focal placental abnormality. ??Normal cervical length. ? Impression dictated by: Howard Huang Jr., D.O. ??04/26/2025 5:17 PM ? Dictation Location: RADIO-PC-18 ? Electronically authenticated by: [id number] ??Y ?? Date: 04/26/2025 ??17:17 ? Dictated By: ?Howard Huang M.D. ? Signed By: ?04/26/250 ? DD/ 1717 ? TD/TT: ? Social Sciences Lecturer: Procedure Note Radiology, Radiologist, MD - 04/26/2025 [place] [address] Ultrasound Report Signed Patient: ESE BADILOL NMR#: [id number] : 1990Acct:[id number] Age/Sex: 34 / FADM Date: 04/26/25 Loc: [facility] 250-[address]: Mamadou Hayden D.O. Ordering Physician: Mamadou Hayden D.O. Date of Service: 04/26/25 Procedure(s): US OB placenta Accession Number(s): [id number] cc: Mamadou Hayden D.O.; Rebecca Rizvi PLANT AND EQUIPMENT WORKER The [address] [address] Patient Name: ESE BADILLO MRN: [id number] date: 1990 Sex: F Assigned Patient Location: [facility] Current Patient Location: [facility] Accession/Order Number: [id number] Exam Date: 04/26/2025 16:29 Report Date: 04/26/2025 17:17 At the request of: MAMADOU HAYDEN DO Procedure: US OB placenta Placental/cervical ultrasound. Extremities for exam: Bleeding and leaking fluid. Twin with known demise of baby A. COMPARISON: None. FINDINGS: Transabdominal imaging of the gravid uterus was obtained. Cervical length measures 4.7 cm without evidence of funneling. Placentais posterior location without focal abnormality. heart rate for baby Bis 132 bpm. US/US OB placenta IMPRESSION: No focal placental abnormality. Normal cervical length. Impression dictated by: Howard Huang Jr., D.O. 04/26/2025 5:17 PM Dictation Location: [place] [address] Electronically authenticated by: [id number] Y Date: 7:17 Dictated By: Howard Huang M.D. Signed By:04/26/25 172 DD/ 16 TD/TT: Social Sciences Lecturer: Authorizing ProviderResult TypeResult StatusCorey Jackelyn DOCLINISYNC IMAGINGFinal Result documented in this encounter Visit Diagnoses Not on filedocumented in this encounter Care Teams Team MemberRelationshipSpecialtyStart DateEnd Date Rebecca Rizvi MD [address] [place] [phone] PCP - GeneralFamily Medicine01/03/25documented as of this encounter
--- OUTSIDE RECORDS SUMMARY | 2025-04-30 07:51 | XMS_ITS | Encounter Summary ---
Author Organization [facility] Address [address] [place] [address] Care Team Providers Care Guitar Player Name Role Phone Rebecca Rizvi MD Primary Care Provider Encounter Details DateTypeDepartmentCare Team (Latest Contact Info)Jubavxrpwfz65/23/2025Telephone [facility] [address] [facility] [place] [address] Evelyn Kee LPN Social History Tobacco UseTypesPacks/DayYears UsedDateSmoking Tobacco: Never Assessed Estimated Date of RixfbbxhEhpezfltZje42/11/2026Based on UltrasoundSex and Gender InformationValueDate RecordedSex Assigned at BirthNot on fileLegal SexFemale 07/20/2022 6:43 PM EDTGender IdentityNot on fileSexual OrientationNot on file documented as of this encounter Miscellaneous Notes * Telephone Encounter - Evelyn Kee LPN - 04/29/2025 10:02 AM EST 10:02am Called patient as she had called office yesterday and today inquiring about plan of care. Patient voiced that she did leave [facility] AMA due to having other children to take care of at home.Patient voiced that Baby A MFM feels is ruptured and that Baby B is does not have PPROM. Patient voiced that she was given steroid, magnesium and completed IV therapy & has been prescribed oral medication. Patient would like to know if it is possible to have stress test daily or every other dayto be done locally as MFM stated to strongly talk with local OB--Patient voiced that MFM would liketo deliver her at 34 weeks gestation. Spoke with Dr. Hayden and called patient back and informed her that STAT referral would be made to [facility] and that NST/BPP orders would be sent to [facility] if she was unable to schedule with them prior to needing more monitoring. Called and spoke with Gena @ [facility] to inform her of orders and history of patient. Information will also be sent for [facility] in regards to medical history for continuation of care. Sent patient [employer] Message with information. Patient to reach out to office with any questions/concerns. Evelyn Brannon LPN documented in this encounter Plan of Treatment DateTypeDepartmentCare Team (Latest Contact Info)Khwrvidghgm27/31/2025 10:20 AM ESTRoutine NOMTiffany PERALTA [address] [facility] [place] [address] Jaylin Chung, QA TECH [address] [facility] [place] [address] 05/21/2025 3:50 PM ESTRoutine NOMTiffany PERALTA [address] [facility] [place] [address] Rene Hayden DO [address] [facility] [place] [address] NameTypePriorityAssociated DiagnosesOrder ScheduleUS biophysical profile w non stress testImagingRoutine Twin gestation in third trimester, unspecified multiple gestation type (HHS-HCC) 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, antepartum (HHS-HCC) premature rupture of membranes (PPROM) with unknown onset of labor (HHS-HCC) Expected: 04/29/2025 (Approximate), Expires: 10/28/2025documented as of this encounter Visit Diagnoses Diagnosis Twin gestation in third trimester, unspecified multiple gestation type (HHS-HCC) 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
--- OUTSIDE RECORDS SUMMARY | 2025-04-30 07:51 | XMS_ITS | Encounter Summary ---
Author Organization Etohums tem Address [id number] [address] [place] [address] Care Team Providers Care Enterprise Application Developer Name Role Phone Rebecca Rizvi BLANCA-TRAVEL SPECIALIST Primary Care Provider Encounter Details DateTypeDepartmentCare Team (Latest Contact Info)Edtbwwaltql11/21/2025Travel Social History Tobacco UseTypesPacks/DayYears UsedDateSmoking Tobacco: FormerCigarettes0.58.1 Started: 04/05/2017Smokeless Tobacco: NeverAlcohol UseStandard Drinks/Week CommentsNot Currently3 (1 standard drink = 0.6 oz pure alcohol)occasionalAHC UtilitiesAnswerDate RecordedIn the past 12 months has the electric, gas, oil, or water [employer] threatened to shut off services in your home?No03/28/2024Overall Financial Resource Strain (CARDIA)AnswerDate RecordedHow hard is it for you to pay for the very basics like food, housing, medical care, and heating?Not hard at all05/07/2024HQ-2AnswerDate RecordedTotal Drawb363PRAPARE - TransportationAnswerDate RecordedIn the past 12 months, has lack of transportation kept you from medical appointments or from getting medications?No 03/28/2024In the past 12 months, has lack of transportation kept you from meetings, work, or from getting things needed for daily living?No03/28/2024 [place] Depression ScaleAnswerDate RecordedEdinburgh Depression Scale Ngnxh490The thought of harming myself has occurred to [...] a household?No03/28/2024hildcare AnswerDate RecordedDo problems getting child specialist make it difficult for you to work or study?No05/07/2024EmploymentAnswerDate RecordedEmploymentUnknown 10/15/2018Hunger ScreeningAnswerDate RecordedWithin the past 12 months we worried whether our food would run out before we got money to buy more.Never True03/11/2025Within the past 12 months the food we bought just didn't last and we didn't have money to get more.Never True03/11/2025Purpose - LifeAnswerDate RecordedPurpose and direction in xrguSeburgy67/10/2021Estimated Date of NwxkoajdGrikdlgiXpi47/11/2026Based on UltrasoundSex and Gender InformationValue Date RecordedSex Assigned at DbudeAebayw45/02/2022 7:15 PM EDTLegal SexFemale 12/09/2014 2:44 PM EDTGender JixzarhjZttkpb00/02/2022 7:15 PM EDTSexual XazdavhhvkkFiktqard09/02/2022 7:15 PM EDTdocumented as of this encounter Plan of Treatment DateTypeDepartmentCare Team (Latest Contact Info)Dcgslcxpwcp50/08/2026 8:30 AM ESTAppointment [facility] US Imaging [address] [place] [phone] 05/15/2025 11:00 AM ESTOffice Visit Maternal- Medicine at [facility] [address] [place] [phone] Charlene Lees MD [address], [address] [place] [address] [place] [address] 11/04/2025 4:00 PM EDTOffice Visit [facility] [address] [place] [phone] Rebecca Rizvi APRN-CNP [address] [place] [phone] documented as of this encounter Visit Diagnoses Not on filedocumented in this encounter Additional Health Concerns InfectionOnset DateLast IndicatedResolved TimeRespiratory Rule-Out04/27/2025 4:21 AM ESTAssessmentNoted TimePHQ-9 Depression Total Score: 3:04 PM EDTA Body Mass Index follow-up plan has been documented for the crekhrq5709/11/2018 4:32 PM EDTdocumented as of this encounter Care Teams Team MemberRelationshipSpecialtyStart DateEnd Date Rebecca Rizvi APRN-CNP [address] [place] [phone] PCP - GeneralNurse Practitioner08/23/22documented as of this encounter
--- OUTSIDE RECORDS SUMMARY | 2025-04-30 07:51 | XMS_ITS | Encounter Summary ---
Author Organization [facility] Address [address] [place] [address] Care Team Providers Care Photographic Spotter Name Role Phone Rebecca Rizvi MD Primary Care Provider [phone] Encounter Details DateTypeDepartmentCare Team (Latest Contact Info)Fcbvelmbsgj29/20/2025linisync Result Encounter [facility] External Department Unsolicited Mamadou Hayden, DO [address] [facility] [address] [place], [facility]11 Social History Tobacco UseTypesPacks/DayYears UsedDateSmoking Tobacco: Never Assessed Estimated Date of ArktzvabKxwblnvcZge71/11/2026Based on UltrasoundSex and Gender InformationValueDate RecordedSex Assigned at BirthNot on fileLegal SexFemale 07/20/2022 6:43 PM EDTGender IdentityNot on fileSexual OrientationNot on file documented as of this encounter Plan of Treatment DateTypeDepartmentCare Team (Latest Contact Info)Fodciroxkmr81/31/2025 10:20 AM ESTRoutine [facility] PERALTA [address] [place] [address] [place] [address] Jaylin Chung, NATHANIEL [address] [facility] [place] [address] 05/21/2025 3:50 PM ESTRoutine NOMTiffany PERALTA [address] [facility] [address] Mamadou Hayden DO [address] [place] [address] documented as of this encounter Procedures Procedure NamePriorityDate/TimeAssociated DiagnosisCommentsUS OB CERVICAL LENGTH 04/26/2025 5:17 PM EST documented in this encounter Results * US OB CERVICAL LENGTH (04/26/2025 5:17 PM EST)Anatomical RegionLaterality ModalityOtherSpecimen (Source)Anatomical Location / LateralityCollection Method / VolumeCollection TimeReceived Time04/26/2025 5:17 PM EST Narrative 04/26/2025 5:20 PM EST [facility] ?[address] ? [place] [address] ? Ultrasound Report ? Signed ? Patient: DESMOND,ESE N ?MR#: [id number] ?? : 1990 ?Acct:[id number] ?? Age/Sex: 34 / F ?ADM Date: 04/26/25 ?? Loc: [facility] ??250-1 ? Attending Dr: Mamadou Hayden D.O. ? Ordering Physician: Mamadou Hayden D.O. ?? Date of Service: 04/26/25 ?? Procedure(s): US OB cervical length ?? Accession Number(s): [id number] ? cc: Mamadou Hayden D.O.; Rebecca Rizvi TANK HOUSE SUPERVISOR ? [facility] ? [address] [place] [address] ? [place] [address] ? Patient Name: ?? ESE BADILLO ? MRN: [facility]:[id number] ? date: 1990 ?Sex: F ?? Assigned Patient Location: [facility] ?? Current Patient Location: [facility] ?? Accession/Order Number: [id number] ?? Exam Date: 04/26/2025 ??16:20 ?Report Date: 04/26/2025 ??17:17 ? At the [...] is ?? 132 bpm. ? US/US OB cervical length ?? IMPRESSION: No focal placental abnormality. ??Normal cervical length. ? Impression dictated by: Howard Huang Jr., D.O. ??04/26/2025 5:17 PM ? Dictation Location: RADIO-PC-18 ? Electronically authenticated by: [id number] ??Y ?? Date: 04/26/2025 ??17:17 ? Dictated By: ?Howard Huang M.D. ? Signed By: ?04/26/250 ? DD/ 1717 ? TD/TT: ? Supervising Broker: Procedure Note Radiology, Radiologist, MD - 04/26/2025 [place] [address] Ultrasound Report Signed Patient: ESE BADILLO NMR#: [id number] : 1990Acct:[id number] Age/Sex: 34 / FADM Date: 04/26/25 Loc: [facility] 250-[address]: Mamadou Hayden D.O. Ordering Physician: Mamadou Hayden D.O. Date of Service: 04/26/25 Procedure(s): US OB cervical length Accession Number(s): [id number] cc: Mamadou Hayden D.O.; Rebecca Rizvi The [place] [id number] Patient Name: ESE BADILLO MRN: [id number] date: 1990 Sex: F Assigned Patient Location: [facility] Current Patient Location: [facility] Accession/Order Number: [id number] Exam Date: 04/26/2025 16:20 Report Date: 04/26/2025 17:17 At the request [...] for baby Bis 132 bpm. US/US OB cervical length IMPRESSION: No focal placental abnormality. Normal cervical length. Impression dictated by: Howard Huang Jr., D.O. 04/26/2025 5:17 PM Dictation Location: [place] [address] Electronically authenticated by: [id number] Y Date: 7:17 Dictated By: Howard Huang M.D. Signed By:04/26/250 DD/ 16 TD/TT: Supervising Broker: Authorizing ProviderResult TypeResult StatusCorey Jackelyn DOCLINISYNC IMAGINGFinal Result documented in this encounter Visit Diagnoses Not on filedocumented in this encounter Care Teams Team MemberRelationshipSpecialtyStart DateEnd Date Rebecca Rizvi MD [address] [place] [phone] PCP - GeneralFamily Medicine01/03/25documented as of this encounter
--- OUTSIDE RECORDS SUMMARY | 2025-04-30 07:51 | XMS_ITS | Encounter Summary ---
Author Organization [facility] Address [address] [place] [address] Care Team Providers Care Director Post Name Role Phone Rebecca Rizvi MD Primary Care Provider [phone] Encounter Details DateTypeDepartmentCare Team (Latest Contact Info)Xuzdyprohje69/17/2025amboo flowsheet NOMTiffany PERALTA [address] [facility] [place] [address] Rene Hayden DO [address] [facility] [address], [place] [address] Social History Tobacco UseTypesPacks/DayYears UsedDateSmoking Tobacco: Never Assessed Estimated Date of FclglpvcGmxppnudMki90/11/2026Based on UltrasoundSex and Gender InformationValueDate RecordedSex Assigned at BirthNot on fileLegal SexFemale 07/20/2022 6:43 PM EDTGender IdentityNot on fileSexual OrientationNot on file documented as of this encounter Plan of Treatment DateTypeDepartmentCare Team (Latest Contact Info)Nozducnwmmt92/31/2025 10:20 AM ESTRoutine [facility] [address] [place] [address] Jaylin Chung NP [address] [place] [address] 05/21/2025 3:50 PM ESTRoutine NOMTiffany PERALTA [address] [place] [address] Rene Hayden, [address] [place] [address] documented as of this encounter Visit Diagnoses Not on filedocumented in this encounter Care Teams Team MemberRelationshipSpecialtyStart DateEnd Date Rebecca Rizvi MD [address] [place] [phone] PCP - GeneralFamily Medicine01/03/25documented as of this encounter
--- OUTSIDE RECORDS SUMMARY | 2025-04-30 07:51 | XMS_ITS | Encounter Summary ---
Author Organization [facility] Address [address] [place] [address] Care Team Providers Care Medical Typist Name Role Phone Rebecca Rizvi MD Primary Care Provider [phone] Encounter Details DateTypeDepartmentCare Team (Latest Contact Info)Appjsorxedg18/20/2025linisync Result Encounter [facility] External Department Unsolicited Rene Hayden, DO [address] [facility] [address] [place], [facility] Social History Tobacco UseTypesPacks/DayYears UsedDateSmoking Tobacco: Never Assessed Estimated Date of XkfelmjmMeysnglfTwu47/11/2026Based on UltrasoundSex and Gender InformationValueDate RecordedSex Assigned at BirthNot on fileLegal SexFemale 07/20/2022 6:43 PM EDTGender IdentityNot on fileSexual OrientationNot on file documented as of this encounter Plan of Treatment DateTypeDepartmentCare Team (Latest Contact Info)Ckclhhoeisr30/31/2025 10:20 AM ESTRoutine [facility] [address] [place] [address] [place] [address] Jaylin Chung, NATHANIEL [address] [facility] [place] [address] 05/21/2025 3:50 PM ESTRoutine [facility] [address] [facility] [place] [address] Rene Hayden DO [address] [place] [address] documented as of this encounter Procedures Procedure NamePriorityDate/TimeAssociated DiagnosisCommentsAMNISURERoutine 04/26/2025 3:25 PM EST [facility] UA (CLEAN/CATCH) SENIOR ACCOUNTANT ANALYST/MICRO IF IND.Ldfuplu6104/26/2025 3:25 PM EST documented in this encounter Results * (ABNORMAL) AMNISURE (04/26/2025 3:25 PM EST)ComponentValueRef RangeTest Method Analysis TimePerformed AtPathologist SignatureTBH AMNISUREPOSITIVE(A)NEGATIVE TBHSpecimen (Source)Anatomical Location / LateralityCollection Method / Volume Collection TimeReceived Time04/26/2025 3:25 PM EST04/26/2025 3:56 PM EST Narrative [facility] - 04/26/2025 4:21 PM EST Authorizing ProviderResult TypeResult StatusCorey Jackelyn DOLAB BLOOD ORDERABLES Final ResultPerforming OrganizationAddressCity/State/ZIP CodePhone Number [facility]INIS[facility] * (ABNORMAL) [facility] UA (CLEAN/CATCH) SENIOR ACCOUNTANT ANALYST/MICRO IF IND. (04/26/2025 3:25 PM EST) ComponentValueRef RangeTest MethodAnalysis TimePerformed AtPathologist SignatureCOLOR URINEYELLOWYELLOWTBHCLARITY URINECLEARCLEARTBHSPECIFIC GRAVITY URINE1.0201.005 - 1.025TBHPH URINE6.05.0 - 9.0TBHPROTEIN URINENEGATIVE NEG/TRACE mg/dLTBHGLUCOSE URINE UANEGATIVENEGATIVE mg/dLTBHBILIRUBIN URINE NEGATIVENEGATIVETBHKETONES URINETRACE(A)NEGATIVE mg/dLTBHBLOOD URINETRACE-I NEGATIVETBHNITRITE URINENEGATIVENEGATIVETBHUROBILINOGEN URINE0.20.2 - 1.0 EU/dLTBHLEUKOCYTE ESTERASE URINENEGATIVENEGATIVETBHURINE MICROSCOPIC INDICATED YESTBHSpecimen (Source)Anatomical Location / LateralityCollection Method / VolumeCollection TimeReceived Time04/26/2025 3:25 PM EST04/26/2025 3:56 PM EST Narrative [facility] - 04/26/2025 4:10 PM EST Authorizing ProviderResult TypeResult StatusCorey Jackelyn DOCLINISYNCFinal Result Performing OrganizationAddressCity/State/ZIP CodePhone Number [facility] documented in this encounter Visit Diagnoses Not on filedocumented in this encounter Care Teams Team MemberRelationshipSpecialtyStart DateEnd Date Rebecca Rizvi MD [address] [place] [phone] PCP - GeneralFamily Medicine01/03/25documented as of this encounter
--- OUTSIDE RECORDS SUMMARY | 2025-04-30 07:51 | XMS_ITS | Encounter Summary ---
Author Organization [facility] Address [address] [place] [address] Care Team Providers Care Linseed Oil Order Filler Name Role Phone Rebecca Rizvi MD Primary Care Provider [phone] Encounter Details DateTypeDepartmentCare Team (Latest Contact Info)Loiahlawioz98/10/2025Telephone [facility] [address] [facility] [place] [phone] Sosa Funes MA [address] [facility] [place] [address] Social History Tobacco UseTypesPacks/DayYears UsedDateSmoking Tobacco: Never Assessed Estimated Date of ZzyjfagaUeqkqqfkBbp36/11/2026Based on UltrasoundSex and Gender InformationValueDate RecordedSex Assigned [...] administered by Dr. Obinna Chaves at the [facility] medicine. Pt was irritated that NOT [...] Plan of Treatment DateTypeDepartmentCare Team (Latest Contact Info)Khcztffpdoa30/31/2025 10:20 AM ESTRoutine [facility] [address] [facility] [place] [phone] Jaylin Chung, NATHANIEL [address] [facility] [place] [phone] 05/21/2025 3:50 PM ESTRoutine [facility] [address] [facility] [place] [address] Rene Hayden DO [address] [facility] [address] [place], [place] [phone] documented as of this encounter Visit Diagnoses Diagnosis Heartburn during in second trimester ([facility] documented in this encounter Care Teams Team MemberRelationshipSpecialtyStart DateEnd Date Rebecca Rizvi MD [facility] [place] [address] PCP - GeneralFamily Medicine01/03/25documented as of this encounter
--- OUTSIDE RECORDS SUMMARY | 2025-04-30 07:51 | XMS_ITS | Clinical Summary ---
Author Organization [employer] [facility] Address [facility] [id number] [address] [place] [address] Care Team Providers Care Dairy Science Teacher Name Role Phone Rebecca Rizvi BLANCA-PATIENT ACCESS SPECIALIST Primary Care Provider Allergies No known active allergies Medications * This document contains information received from the source organization and may not represent a complete record from that organization. MedicationSigDispense QuantityRefillsLast FilledStart DateEnd DateStatus omeprazole (PriLOSEC) 40 mg capsule Indications:Heart burnTake 1 capsule (40 mg total) by mouth in the morning. 30 capsule 6084Active Additional Information Patient not taking.Reported on 04/14/2025 253-dqpo-drvdsj 6-dha 27 mg iron-1 mg -205 mg capsule Indications: care in third trimesterTake 1 each by mouth in the morning. 90 capsule 4Active docusate sodium (COLACE) 100 mg capsule Indications:Constipation, unspecified constipation typeTAKE 1 CAPSULE BY MOUTH DAILY NEEDED FOR CONSTIPATION 30 capsule 4Active omega-3 acid ethyl esters (LOVAZA) 1 gram capsule TAKE 2 CAPSULES BY MOUTH EVERY MORNING AND TAKE TWO CAPSULES BY MOUTH AT BEDTIME 120 capsule 5Active Additional Information Patient not taking.Reported on 04/27/2025 valACYclovir (VALTREX) 1000 mg tablet Indications:HSV infectionTake 1 tablet (1,000 mg total) by mouth in the morning and 1 tablet (1,000 mg total) before bedtime. 30 tablet 5Active Additional Information Patient not taking.Reported on 04/27/2025 Bacillus coagulans (BACID WITH LACTOSPORE) 1 billion cell capsule Take 1 capsule by mouth in the morning. 90 capsule 5Active Additional Information Patient not taking.Reported on 04/14/2025 magnesium oxide (MAGOX) 400 mg tablet Take 1 tablet (400 mg total) by mouth before bedtime. 90 tablet 5Active Additional Information Patient taking differently:1 tablet oral Daily, Bedtime,Occasionally, Reported on 04/14/2025 QVVD-opxqnber-olyvrvyzzqx xt 100-100-225 mg capsule Take 1 capsule [...] by mouth in the morning. 90 tablet tive biotin (BIOTIN) 5 mg capsule Indications:Hair lossTake 1 capsule (5 mg total) by mouth in the morning. 90 capsule 5Active Additional Information Patient not taking.Reported on 04/14/2025 famotidine (PEPCID) 20 mg tablet Indications:Heart burnTAKE 1 TABLET BY MOUTH EVERY MORNING 30 tablet 5Active amoxicillin (AMOXIL) 250 mg capsule Take 1 capsule (250 mg total) by mouth every 8 (eight) hours for 18 doses. 18 capsule 5Active erythromycin (E-MYCIN) 250 mg tablet,delayed release (DR/EC) Indications: premature rupture of membranes in third trimester, unspecified duration to onset of laborTake 1 tablet (250 mg total) by mouth every 8 (eight) hours for 18 doses. 18 tablet 5Active drospirenone, contraceptive, 4 mg (28) tablet Take 4 mg by mouth in the morning. 28 tablet Discontinued(Stop Taking at Discharge) etonogestreL-ethinyl estradioL (NUVARING) 0.12-0.015 mg/24 hr vaginal ring Indications:Encounter for initial prescription of vaginal ring hormonal contraceptiveInsert 1 each into the vagina every 21 days. Insert vaginally and leave in place for 3 consecutive weeks, then remove for 1 week. 1 each Discontinued(Stop Taking at Discharge) Active Problems Patient Care Coordination No te [...] Ortho: []Peds Surgery: []Peds Neurology: [x]Peds Neurosurgery: [facility] 03/18/25 Pediatric neurosurgical consultation [...] Consult: []Palliative Care Consult: []SGM: []Life Connection: [x][place]: 03/17 and 03/18 [x] MRI & US [...] and risks for delivery, especially early delivery (Kristensen 2022, Sorrenti 2022, Zemet 2020). I specifically discussed that, ideally, we would seek to reduce the as soon as possible, based on data demonstrating a higher risk of cotwin loss and delivery among individuals undergoing selective reduction above 20 weeks, though some data demonstrate a signal between 16-18 weeks []UH: []JESSICA CHS: Delivery Recommendation: [] Term at local hospital [] Term at [facility] Surveillance Plan: [] Survey at __ weeks [] Growth q __ weeks [] Dopplers q __ weeks [] Echo at __ weeks [] Cervical length q __ weeks [] TTTS q __ weeks [] Wkly NST/PAMELA starting at __ weeks [] 2x/wk NST/PAMELA starting at __ weeks ProblemNoted DateDiagnosed DatePremature rupture of mjhzcsogg66/21/2025MA (advanced maternal age) multigravida 35+, second ikwqrfijv36/04/2025nemia affecting in third mtxvvchke65/30/2024 Overview (01/23/2024): 01/15: IV iron 01/22: IV iron Vitamin D jlkraghdmz92/03/2023Estimated Date of DeliveryCommentsYes 6Based on Ultrasound Resolved Problems ProblemNoted DateDiagnosed DateResolved DateNSVD (normal spontaneous vaginal delivery)/8163Afdzghvty98Normal labor03/26/2024 weeks gestation of orhqutwcl69bdominal pressure Irregular uterine rynxrloavwoa66History of heroin abuse Overview (03/17/2024): 03/17/2024: Patient states she has been clean since 2011. Wrqcsvgj46 Overview (11/14/2023): Bleeding after intercourse - 10-31-23 spec exam done. Bleeding is coming from metaplasia of cervix. Thick/closed [id number] = GC and CT negative Hx of LEEP - 2016 - 1 full term baby after Cervical lengths 10-12-23 [...] MFM consult: Rh negative state in antepartum rwiovh11/HSV infection Overview (10/31/2023): 09-05-23 genital lesion cultured- + HSV2 States gets oral lesions Discussed genital HSV and need for prophylaxis at 34 weeks. 10-31-23 - c/o HSV oral break out. 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 They have a nwcg-pwvd-kzg daughter that has a mild form (Clemens [...] 25%. We reviewed all children born in [place] are screened for galactosemia via screening (NBS) after . 1. Amniocentesis discussed and declined. 2. Continue to monitor the via ultrasound. 3. Patient diagnoses: galactosemia carriers, family history of galactosemia and muscular dystrophy History of loop electrical excision procedure (LEEP)/ Overview (09/05/2023): LEEP 2016 Cervical lengths to start at 16 weeks until 24 weeks. Intermittent explosive wbsdwdda63ipolar tsmmziez17/23/2023 10/01/20242004Ehysatne23History of drug abuse09/06/2022EczemaVitamin B 12 kgnoiaybuh33/02/2023 02/21/2023FH: brain alpgosgu41pontaneous vaginal delivery Failed induction of labor, ghokqcmzit43 Intrauterine emcxkzqgi72Echogenic focus of heart of fetus affecting antepartum [...] viral load undetected Rh negative, antepartum, first rvobqszpc53Attention deficit hyperactivity disorder (ADHD), predominantly hyperactive type03/20/2017 10/01/20249832Rounjvz52Headaches, tjpkhkg63HCV antibody Overview (07/17/2017): Avoid scalp electrode Notify peds at delivery LFT and viral load each trimester and at delivery Elevated liver igohacw37Cannabis abuse Tobacco useHistory of opioid abuse Overview (08/14/2017): Has not used opoid since Hx of intravenous drug use in pxnqjnpln90CIN II (cervical intraepithelial neoplasia II) Overview (08/14/2017): =ASC-H =HGSIL = LEEP - Dr. Bhatia - PAP=WNL Rpt PAP post Encounters DateTypeDepartmentCare CpxrCulneliwvry70/23/2025[facility] [address] [place] [phone] Opal Herndon RN 04/27/20254059Hsfyel20/20/2025 11:50 PM EST - 04/27/2025 11:24 PM ESTHospital Encounter [facility] [address] [place] [address] Escobar Cook MD premature rupture of membranes (PPROM) with unknown onset of labor (Primary Dx); premature rupture of membranes in third trimester, unspecified duration to onset of labor Discharge Disposition: Left Against Medical Advice or Discontinued Care 04/14/2025 9:00 AM ESTOffice Visit Maternal Medicine [facility] [address] [address] Abiola Chris MD 26 weeks gestation of (Primary Dx); Twin following selective reduction, antepartum; Dichorionic diamniotic twin in second trimester; Carrier of pmezqutkucgd16/08/2786Xqgzfi09/24/2025Orders Only Maternal- Medicine at [facility] [address] [place] [address] Debo Shea, KLEVER AMA (advanced maternal age) multigravida 35+, second trimester (Primary Dx); Dichorionic diamniotic twin in second ktyummjbh40/24/2025Orders Only Maternal- Medicine at [facility] [address] [place] [address] Malena Ocasio, DUY 03/19/2025Orders Only Maternal- Medicine at [facility] [address] [place] [phone] Ref Prov, Not In System 03/18/2025Telephone Maternal- Medicine at [facility] [address] [place] [phone] Helen Robertson RN 03/11/2025 11:00 AM ESTOffice Visit Maternal- Medicine at [facility] [address] [place] [phone] Tejinder Mccarthy MD Anemia affecting in third trimester (Primary Dx); AMA (advanced maternal age) multigravida 35+, second xiednecmr77/04/2025 8:54 AM EST - 03/11/2025 11:59 PM ESTHospital Encounter [facility] Imaging [address] [place] [phone] Screening, , for anatomic survey Discharge Disposition: Home03/11/20254870Jqbmnm13/16/2025Orders Only Maternal- Medicine at [facility] [address] [place] [address] Ref Prov, Not In System 02/19/2025 1:45 PM EDTSupport Visit Maternal- Medicine at [facility] [address] [facility] [place] [address] 02/19/20259069Lwekrv68/06/2025bstract Maternal- Medicine at [facility] [address] [place] [phone] Tejinder Mccarthy MD from Last 3 Months Immunizations ImmunizationAdministration DatesNext SxwUCK5906/12/1989,02/08/1990,1989DTaP, Kixexdotrgn62/08/2002,10/04/1994,04/16/1991HPV Shxdwcemopne63/14/2007Hep A, 2 Dose03/21/2007Hep B, Adolescent or Rmydexoqb55/26/2002,05/15/2001,04/04/2001HiB 02/12/1991,09/20/1990,08/05/1990Influenza, Injectable, quadrivalent (PF) 02/27/2024,05/22/2017MMR05/15/2001,02/12/1991Meningococcal YIA6F5303/21/2007OPV 10/04/1994,04/16/1991,02/08/1990,1989Polio, Lprifakkprc42/08/2002RSV, bivalent, protein subunit RSVpreF, diluent reconstituted, 0.5 mL, PF02/23/2024 Rho (D) Immune Lohguyyg48/21/2024,01/02/2024,11/14/2023,08/23/2023,09/11/2017Td, Rseceurybhp29/26/7596Znlx91/06/2024 Family History Medical HistoryRelationNameCommentsDrug abuseBrotherDrug abuseFatherHeart diseaseFatherMigrainesFatherParkinsonismMaternal [...] care, and heating?Not hard at all05/07/2024HQ-2AnswerDate RecordedTotal Aomih409PRAPARE - TransportationAnswerDate RecordedIn the past 12 months, has lack of transportation kept you from medical appointments or from getting medications?No03/28/2024In the past 12 months, has lack of transportation kept you from meetings, work, or from getting things needed for daily living?No03/28/2024Edinburgh Depression ScaleAnswerDate Recorded Ocilla Depression Scale Gmzqw040The thought of harming myself has occurred to [...] part of a household?No03/28/2024hildcareAnswerDate RecordedDo problems getting child nutrition assistant make it difficult for you to work or study?No05/07/2024EmploymentAnswerDate CzgftytkCktpvywmocNgohbrt23/10/2019Hunger ScreeningAnswerDate RecordedWithin the past 12 months we worried whether our food would run out before we got money to buy more.Never True03/11/2025Within the past 12 months the food we bought just didn't last and we didn't have money to get more.Never True03/11/2025Purpose - LifeAnswerDate RecordedPurpose and direction in uxxaKoifnpk13/10/2021 Estimated Date of TosiramtIokcrdhfIhv12/11/2026Based on UltrasoundSex and Gender InformationValueDate RecordedSex Assigned at EpbdjLbuokn55/02/2022 7:15 PM EDT Legal JijGvlljo73/04/2015 2:44 PM EDTGender JllninvpJansvu73/02/2022 7:15 PM EDT Sexual MihddookgiqQhxqxyaj00/02/2022 7:15 PM EDT Last Filed Vital Signs Vital SignReadingTime TakenCommentsBlood Jfaffzxl548/6004/27/2025 7:23 PM EST Sgltq132004/27/2025 7:23 PM HNBQuspkckgfvy84.7 ??C (98.1 ??F)04/27/2025 9:34 PM ESTRespiratory Fymi910206/28/2024 7:23 PM ESTOxygen Jdoyjhsdjq40%04/27/2025 9:00 AM ESTInhaled Oxygen Concentration--Oemyww78.9 kg (185 lb)04/14/2025 9:04 AM EST Clktal168 cm (5' 2.99 )03/11/2025 9:42 AM ESTBody Mass Index32.7803/11/2025 9:42 AM EST Plan of Treatment DateTypeDepartmentCare Team (Latest Contact Info)Kiklyhvggam94/08/2026 8:30 AM ESTAppointment [facility] US Imaging [address] [place] [phone] 05/15/2025 11:00 AM ESTOffice Visit Maternal- Medicine at [facility] [address] [place] [phone] Abiola Chris MD [address], [address] [place] [address] 11/04/2025 4:00 PM EDTOffice Visit [facility] [address] [place] [phone] Rebecca Rizvi, SEED POTATO CUTTER-PATIENT ACCESS SPECIALIST [address], [facility] [address] Health MaintenanceDue DateLast DoneCommentsAdult BMI Follow Up Plan10/04/2007 Influenza Gsgtnvb32, 05/22/2017Depression Anplcxbwk62/24/2026 10/29/2024, 05/07/2024dult BMI Nnhdpbkiy12/12/2024Tobacco Screening Pap Smear8010/01/2024, 10/01/2024, 09/05/2023, Additional history existsDTaP,Tdap and Td Vaccines (9 - Td or Tdap)01/11/2034 01/12/2024, 12/31/2001, 05/15/2001, Additional history existsRSV ( or age 60+ yrs)Tocajzwck06/18/2024 Medical Devices Not on file Procedures Procedure NamePriorityDate/TimeAssociated DiagnosisCommentsURINALYSISRoutine 04/27/2025 7:56 AM EST LACTATE W/ QROJJPWTEY50/21/2025 6:25 AM EST COMPREHENSIVE METABOLIC JJWYTRBDD59/21/2025 6:25 AM EST CBC WITH AUTO FCQMFPKHPSURRHVZ94/21/2025 6:25 AM EST BLOOD SYPNBDCDEOI31/21/2025 6:25 AM ESTBLOOD TQWCXAVJTMS24/21/2025 6:25 AM EST EXTRA TUBES BLUE YEUWxzbyrq39/21/2025 6:24 AM EST EXTRA RHZANMfpsuxq35/21/2025 6:24 AM EST STREP B CEDNBTVtwhhwn43/21/2025 2:20 AM EST CHLAMYDIA/GC BY PCR NORBERTO NFBOQdpktts06/21/2025 2:20 AM EST MOLECULAR VAGINITIS PANEL FLCSvzpwiz47/21/2025 2:20 AM EST RESP PATHOGENS PANEL/ENDI-SLM-2Lkrsmno19/21/2025 2:20 AM EST RUPTURE OF MEMBRANE (ALL)Sfhxkzp8204/27/2025 1:43 AM EST ANTIBODY WCAhjtdqh46/21/2025 12:13 AM EST TYPE AND ZHIQNVTGRJ49/21/2025 12:13 AM EST HEPATITIS C VIRUS QUANTITATIVE BY NAATAdd-On04/27/2025 12:13 AM EST CBC WITH AUTO HBJMSRLWRBKSDTVC37/21/2025 12:13 AM EST COMPREHENSIVE METABOLIC LATKYQMFA39/21/2025 12:13 AM EST SYPHILIS TOTAL(UNKNOWN SYPHILIS STATUS)STAT106/28/2024 12:13 AM EST EXTRA TUBES PST OBYPjpyiyb17/21/2025 12:08 AM EST EXTRA TUBES BLUE HCVXhyvxsa24/21/2025 12:08 AM EST EXTRA LMYDIYibqjzg13/21/2025 12:08 AM EST US MFM OB FOLLOW-UP, 1 TABJLEwyvzat64/08/2025 9:15 AM EST AMA (advanced maternal age) multigravida 35+, second trimester Dichorionic diamniotic twin in second trimester ULTRASOUND JKWMNAWrrolbo56/11/2025 11:14 AM ESTMR ZAWAHVykbsda70/10/2025 11:19 AM ESTULTRASOUND HHJNHUQegxmfx20/10/2025 11:07 AM ESTUS MFM COMPREHENSIVE ANATOMIC IVTWEKJgoftce03/04/2025 11:56 AM EST Screening, , for anatomic survey FREE CELL DNA (NON-[facility] SEND OUT)Vwshmxa0602/18/2025 11:39 AM EDTHIGH RISK HPV W/KLJHSvuhavj61/27/2025 1:50 PM EDT Screening for cervical cancer from Last 3 Months or Most Recently Relevant to Health Maintenance Results * (ABNORMAL) Urinalysis (04/27/2025 7:56 AM EST)ComponentValueRef RangeTest MethodAnalysis TimePerformed AtPathologist SignatureCOLORYellowYellow 04/27/2025 8:41 AM [facility] LABORATORYTURBIDITYClearClear 04/27/2025 8:41 AM [facility] LABORATORYSPECIFIC GRAVITY1.023 1.003 - 1.3860704/27/2025 8:41 AM [facility] LABORATORYNITRITE AixibwcvXkiuiyit02/21/2025 8:41 AM [facility] PH,URINE6.55.0 - 8.512 8:41 AM [facility] LEUKOCYTE JXLXUWPIVesubktkAnlvzsaf04/21/2025 8:41 AM [facility] LABORATORYPROTEINTrace(A)Ozdzribv18/21/2025 8:41 AM [facility] LABORATORYKETONES (URINE)10 mg/dL(A)Fwqaojkn88/21/2025 8:41 AM [facility] LABORATORYUROBILINOGEN<1.1 eu/dL<1.1 eu/dL04/27/2025 8:41 AM [facility] LABORATORYBILIRUBIN (URINE)Negative Gjaxqeqa98/21/2025 8:41 AM [facility] LABORATORYBLOOD/HGB KzydukotQazddujg37/21/2025 8:41 AM [facility] MUCOUSPresent(A)None04/27/2025 8:41 AM [facility] R.B.CELLS10 - 512 8:41 AM [facility] SQUAMOUS RMDUIKXYGO65 - 8:41 AM [facility] LABORATORYW.B.CELLS10 - 512 8:41 AM [facility] LABORATORYGLUCOSE (URINE)UrozcwwlYwijmuma00/21/2025 8:41 AM [facility] LABORATORYSpecimen (Source)Anatomical Location / Laterality Collection Method / VolumeCollection TimeReceived TimeUrineUrine / Unknown 04/27/2025 7:56 AM EST04/27/2025 8:24 AM EST Narrative Authorizing ProviderResult TypeResult StatusTansarwat UQINTEROS ORDERABLES Final ResultPerforming OrganizationAddressCity/State/ZIP CodePhone Number [facility] [address] [place] [address], [place] [phone] * Lactate w/ Reflex (04/27/2025 6:25 AM EST)ComponentValueRef RangeTest Method Analysis TimePerformed AtPathologist SignatureLACTATE W/REFLEX1.00.4 - 2.0 mmol/L106/28/2024 7:23 AM [facility] LABORATORYSpecimen (Source)Anatomical Location / LateralityCollection Method / VolumeCollection TimeReceived TimeBloodVenous blood / UnknownVenipuncture / Gasvujj4904/27/2025 6:25 AM EST04/27/2025 6:41 AM EST Narrative [facility] - 04/27/2025 7:23 AM EST Result did not trigger repeat Lactate, re-order if needed. Authorizing ProviderResult TypeResult StatusTansarwat HUNTER BLOOD ORDERABLESFinal ResultPerforming OrganizationAddressCity/State/ZIP CodePhone Number [facility] [address] [place] [address], [place] [phone] * (ABNORMAL) CBC auto differential (04/27/2025 6:25 AM EST) Only the most recent of2 resultswithin the time period is included. ComponentValueRef RangeTest MethodAnalysis TimePerformed AtPathologist Signature WBC12.1(H)4 - 11 10^9/L106/28/2024 6:52 AM [facility] RBC Count3.823.8 - 5.2 10^12/L106/28/2024 6:52 AM [facility] JFNIQCKRZLMaighnecxq19.3(L)11.7 - 15.5 g/dL04/27/2025 6:52 AM [facility] NDVOGETMYDJjzzgudrmb13.3(L)35 - 47 %04/27/2025 6:52 AM [facility] VLATFVXAKFTVB0401 - 100 fL04/27/2025 6:52 AM [facility] XLHSKLWGKMQUS97.627 - 34 pg04/27/2025 6:52 AM [facility] FZRZBEODEHOCUG27.932 - 36 g/dL04/27/2025 6:52 AM [facility] VAOPPHOBFZKIY69.611.5 - 15 %04/27/2025 6:52 AM [facility] LABORATORYPlatelet Lfica181353 - 450 10^9L106/28/2024 6:52 AM [facility] LABORATORYMPV8.37 - 12 fL04/27/2025 6:52 AM [facility] LABORATORYNeutrophils %89.5%04/27/2025 6:52 AM [facility] LABORATORYLymphocytes %8.6%04/27/2025 6:52 AM [facility] LABORATORYMonocytes %1.8%04/27/2025 6:52 AM [facility] LABORATORYEosinophils %0.1%04/27/2025 6:52 AM [facility] LABORATORYBasophils %0.0%04/27/2025 6:52 AM [facility] LABORATORYNeutrophils Absolute (A)10.8(H)1.5 - 6.6 10^9/L106/28/2024 6:52 AM [facility] LABORATORYLymphocytes Absolute1.01.0 - 3.5 10^9/L106/28/2024 6:52 AM [facility] LABORATORYMonocytes Absolute0.20.0 - 0.9 10^9/L106/28/2024 6:52 AM [facility] LABORATORYEosinophils Absolute0.00.0 - 0.4 10^9/L106/28/2024 6:52 AM [facility] LABORATORYBasophils Absolute0.00.0 - 0.2 10^9/L106/28/2024 6:52 AM [facility] LABORATORYDifferential TypeAUTOMATED CFMSKFOQJQTR76/21/2025 6:52 AM [facility] LABORATORYSpecimen (Source)Anatomical Location / LateralityCollection Method / VolumeCollection TimeReceived TimeBloodVenous blood / UnknownVenipuncture / Cmtqevl3704/27/2025 6:25 AM EST04/27/2025 6:42 AM EST Narrative Authorizing ProviderResult TypeResult StatusTannice Dionne HUNTER BLOOD ORDERABLESFinal ResultPerforming OrganizationAddressCity/State/ZIP CodePhone Number [facility] [address] [place] [address], * (ABNORMAL) Comprehensive metabolic panel (04/27/2025 6:25 AM EST) Only the most recent of2 resultswithin the time period is included. ComponentValueRef RangeTest MethodAnalysis TimePerformed AtPathologist Signature XJAFYB784026 - 146 mmol/L106/28/2024 7:18 AM [facility] LABORATORYPOTASSIUM3.93.5 - 5.0 mmol/L106/28/2024 7:18 AM [facility] UANHZSPCWGSHEYNWWW94385 - 109 mmol/L106/28/2024 7:18 AM [facility] LABORATORYCARBON EAAKVSG56(L)22 - 32 mmol/L106/28/2024 7:18 AM EST [facility] LABORATORYANION GAP85 - 15 mmol/L106/28/2024 7:18 AM EST [facility] LABORATORYBLOOD UREA BKEOXWHG47 - 23 mg/dL04/27/2025 7:18 AM [facility] LABORATORYCREATININE0.510.40 - 1.00 mg/dL 04/27/2025 7:18 AM [facility] LABORATORYComment:METHOD TRACEABLE TO IDAK SNGRFJFONXRSFQS711(H)65 - 99 mg/dL04/27/2025 7:18 AM [facility] LABORATORYCALCIUM7.1(L)8.5 - 10.5 mg/dL04/27/2025 7:18 AM EST [facility] LABORATORYTOTAL PROTEIN6.06.0 - 8.0 g/dL04/27/2025 7:18 AM [facility] LABORATORYALBUMIN3.23.2 - 5.3 g/dL04/27/2025 7:18 AM [facility] LABORATORYALKALINE SKYPXYRRBGV5728 - 130 U/L 04/27/2025 7:18 AM [facility] GKCCTXLIRJOCA65<=41 U/L106/28/2024 7:18 AM [facility] LABORATORYALT4<=31 U/L106/28/2024 7:18 AM [facility] LABORATORYBILIRUBIN,TOTAL0.2(L)0.3 - 1.2 mg/dL 04/27/2025 7:18 AM [facility] LABORATORYEGFR Non-Race Dependent >90>=60 ml/min/1.73sq.m106/28/2024 7:18 AM [facility] Comment: Reported eGFR is based on the CKD-EPI 2020 equation that does not use a race coefficient. Specimen (Source)Anatomical Location / LateralityCollection Method / Volume Collection TimeReceived TimeBloodVenous blood / UnknownVenipuncture / Unknown 04/27/2025 6:25 AM EST04/27/2025 6:42 AM EST Narrative Authorizing ProviderResult TypeResult StatusTannicdana HUNTER BLOOD ORDERABLESFinal ResultPerforming OrganizationAddressCity/State/ZIP CodePhone Number [facility] [address] [place] [phone], * Light Blue Top (04/27/2025 6:24 AM EST) Only the most recent of2 resultswithin the time period is included. ComponentValueRef RangeTest MethodAnalysis TimePerformed AtPathologist Signature Extra TubeAuto Watdbjur98/21/2025 8:01 AM [facility] Specimen (Source)Anatomical Location / LateralityCollection Method / Volume Collection TimeReceived TimeBloodVenous blood / Luanadb7304/27/2025 6:24 AM EST 04/27/2025 6:42 AM EST Narrative Authorizing ProviderResult TypeResult StatusDavid Kya Cook MDLAB BLOOD ORDERABLESFinal ResultPerforming OrganizationAddressCity/State/ZIP CodePhone Number [facility] [address] [place] [address], * Molecular Vaginitis Panel PCR (04/27/2025 2:20 AM EST)ComponentValueRef Range Test MethodAnalysis TimePerformed AtPathologist SignatureBacterial Vaginosis DNANot DetectedNot Wrxzmfdc64/21/2025 4:27 AM [facility] LABORATORYComment:Indicator DNA target(s) related to bacterial vaginosis organisms, which include: Atopobium vaginae,Atopobium novel species, Megasphaera-1, and Bacterial Vaginosis Associated Bacteria-2 (BVAB-2), is/are Not Detected.Abena species group DNANot DetectedNot Iorejhuh96/21/2025 4:27 AM [facility]ATORYComment:Abena group (C. albicans and/or C. tropicalis and/or C. parapsilosis and/or C. dubliniensis) target DNA is Not Detected.Abena glabrata/krusei DNANot DetectedNot Zuwjlsci05/21/2025 4:27 AM [facility]ORYComment:Abena glabrata and/or Abena krusei target DNA is Not Detected.Trichomonas VaginalisNot Detected Not Jcxnemkh44/21/2025 4:27 AM [facility]ORYComment: Trichomonas vaginalis target DNA is Not Detected.Specimen (Source)Anatomical Location / LateralityCollection Method / VolumeCollection TimeReceived Time SwabVaginal structure / Odtrtul6404/27/2025 2:20 AM EST04/27/2025 3:19 AM EST Narrative [facility] - 04/27/2025 4:27 AM EST Assay methodology is nucleic acid amplification by real-time PCR, performed on ChartsNow (now MusicQubed) Instrument System. Authorizing ProviderResult TypeResult StatusBullhead Community HospitalROBIOLOGY - GENERAL ORDERABLESFinal ResultPerforming OrganizationAddressCity/State/ZIP Code Phone Number [facility] [address] [place] [address], * Chlamydia/GC by PCR Norberto Swab (04/27/2025 2:20 AM EST)ComponentValueRef Range Test MethodAnalysis TimePerformed AtPathologist SignatureCHLAMYDIA DNA(PCR) ChkbwoenHnqeodxk94/22/2025 10:39 AM [facility] Comment:Chlamydia trachomatis not detected by nucleic acid amplification. This does not exclude the possibility of infection because results are dependent on adequate specimen collection.GONORRHOEAE DNA(PCR)WjxmzxgzVyjvjtif90/22/2025 10:39 AM [facility]ATORYComment:Neisseria gonorrhoeae not detected by nucleic acid amplification. This does not exclude the possibil ity of infection because results are dependent on adequate specimen collection.Specimen (Source)Anatomical Location / LateralityCollection Method / VolumeCollection TimeReceived TimeSwabEndocervical structure / Unknown 04/27/2025 2:20 AM EST04/27/2025 3:19 AM EST Narrative Authorizing ProviderResult TypeResult [facility] GordonROBIOLOGY - GENERAL ORDERABLESFinal ResultPerforming OrganizationAddressCity/State/ZIP Code Phone Number [facility] [address] [place] [address], [place] [phone] * Resp Pathogens Panel/SARS CoV-2 (04/27/2025 2:20 AM EST)ComponentValueRef RangeTest MethodAnalysis TimePerformed AtPathologist SignatureSARS COV 2 BY PCRNot DetectedNot Cvduaryx78/21/2025 4:21 AM [facility] LABORATORYADENOVIRUSNot DetectedNot Bunzgdoo05/21/2025 4:21 AM [facility] LABORATORYCORONAVIRUS 229ENot DetectedNot Dfxjcvjr25/21/2025 4:21 AM [facility] LABORATORYCORONAVIRUS FOF6Ygj DetectedNot Lnvitgei49/21/2025 4:21 AM [facility] LABORATORYCORONAVIRUS HD15Oax DetectedNot Vmyxnwxv59/21/2025 4:21 AM [facility] LABORATORYCORONAVIRUS OD12Tqz DetectedNot Rrpaheoh49/21/2025 4:21 AM [facility] LABORATORYHUMAN METAPNEUVIRUSNot DetectedNot Detected 04/27/2025 4:21 AM [facility]ORATORYRHINO/ENTEROVIRUSNot DetectedNot Wjwrnzen18/21/2025 4:21 AM [facility] INFLUENZA ANot DetectedNot Ekufvhbv67/21/2025 4:21 AM [facility] LABORATORYINFLUENZA BNot DetectedNot Cfmjbxwn81/21/2025 4:21 AM [facility] LABORATORYPARAINFLUENZA 1Not DetectedNot Detected 04/27/2025 4:21 AM [facility] LABORATORYPARAINFLUENZA 2Not DetectedNot Zvqzxhly08/21/2025 4:21 AM [facility] PARAINFLUENZA 3Not DetectedNot Nwvriwqe44/21/2025 4:21 AM [facility] LABORATORYPARAINFLUENZA 4Not DetectedNot Tnvznvoy08/21/2025 4:21 AM [facility]ATORYRESP SYNCYTIAL VIRUSNot DetectedNot Cfmvqiyo98/21/2025 4:21 AM [facility]ORATORYBORD PARAPERTUSSISNot DetectedNot Epdkrttp62/21/2025 4:21 AM [facility] LABORATORYBORDETELLA PERTUSSISNot DetectedNot Ndfnsxlm00/21/2025 4:21 AM [facility]ORATORYCHLAM.PNEUMONIAENot DetectedNot Ryeuowue03/21/2025 4:21 AM [facility]ATORYMYCOPLASMA PNEUMONIAENot DetectedNot Cfsfdfcr87/21/2025 4:21 AM [facility] LABORATORYSpecimen (Source)Anatomical Location / LateralityCollection Method / VolumeCollection TimeReceived TimeSwabNasopharyngeal structure / Whbozux20/ 2:20 AM EST04/27/2025 3:19 AM EST Narrative [facility] - 04/27/2025 4:21 AM EST The [employer] Respiratory Panel 2.1 (RP2.1) is [...] possible respiratory tract infection. Authorizing ProviderResult TypeResult StatusTannice Fogarthy MDMICROBIOLOGY - GENERAL ORDERABLESFinal ResultPerforming OrganizationAddressCity/State/ZIP Code Phone Number [facility] [address] [place] [address], * Strep B screen (04/27/2025 2:20 AM EST)ComponentValueRef RangeTest Method Analysis TimePerformed AtPathologist SignatureCULTURE RESULTSNEGATIVE FOR GROUP B STREPTOCOCCUS BY NUCLEIC ACID SSZIMGCOFIPPJ35/22/2025 9:39 AM EST [facility] LABORATORYSpecimen (Source)Anatomical Location / LateralityCollection Method / VolumeCollection TimeReceived TimeSwab (Vagina/Rectum)04/27/2025 2:20 AM EST04/27/2025 3:19 AM EST Narrative Authorizing ProviderResult TypeResult StatusGaby Truong MDMICROBIOLOGY - GENERAL ORDERABLESFinal ResultPerforming OrganizationAddressCity/State/ZIP Code Phone Number [facility] [address] [place] [address], [place] [phone] * Rupture of membrane (ALL) (04/27/2025 1:43 AM EST)ComponentValueRef RangeTest MethodAnalysis TimePerformed AtPathologist SignatureRUPTURE OF KFGZAYFNEguyhjjiSnrixuil25/21/2025 3:08 AM [facility] LABORATORYSpecimen (Source)Anatomical Location / LateralityCollection Method / VolumeCollection TimeReceived TimeSwabVaginal structure / Rjjrtpk0204/27/2025 1:43 AM EST04/27/2025 2:13 AM EST Narrative Authorizing ProviderResult TypeResult StatusGaby Truong MDBODY FLUIDS AND STOOLS ORDERABLESFinal ResultPerforming OrganizationAddressCity/State/ZIP Code Phone Number [facility] [address] [place] [address], [place] [phone] * Hepatitis C Virus Quantitative by NAAT (04/27/2025 12:13 AM EST)ComponentValue Ref RangeTest MethodAnalysis TimePerformed AtPathologist SignatureHCV InterpretationNot DetectedNot Zhcqsjcz82/22/2025 10:38 AM [facility]ORATORYSpecimen (Source)Anatomical Location / LateralityCollection Method / VolumeCollection TimeReceived TimeBloodVenous blood / Unknown Venipuncture / Utzatwq2804/27/2025 12:13 AM EST04/27/2025 12:25 AM EST Narrative Authorizing ProviderResult TypeResult StatusGaby Truong MDLAB BLOOD ORDERABLESFinal ResultPerforming OrganizationAddressCity/State/ZIP CodePhone Number [facility] [address] [place] [address], [place] [phone] * Syphilis Total (Unknown Syphilis Status) (04/27/2025 12:13 AM EST)Component ValueRef RangeTest MethodAnalysis TimePerformed AtPathologist Signature SYPHILIS TOTAL<0.2<=0.8 AI04/27/2025 7:02 AM ESTOHIOHEALTH [facility]ERS[facility] LABORATORYSpecimen (Source)Anatomical Location / LateralityCollection Method / VolumeCollection TimeReceived TimeBloodVenous blood / UnknownVenipuncture / Vfnhzwy0004/27/2025 12:13 AM EST04/27/2025 12:25 AM EST Narrative [facility] - 04/27/2025 7:02 AM EST NON REACTIVE No serologic evidence of infection to Treponema pallidum. Repeat testing may be considered in patients with suspected acute or primary syphilis in 2 to 4 weeks. Authorizing ProviderResult TypeResult StatusTansarwat HUNTER BLOOD ORDERABLESFinal ResultPerforming OrganizationAddressCity/State/ZIP CodePhone Number [facility] [address] [place] [address], * Antibody ID (04/27/2025 12:13 AM EST)ComponentValueRef RangeTest Method Analysis TimePerformed AtPathologist SignatureAntibody IDPassive D Antibody, Patient Received RHIG04/27/2025 2:35 AM ESTTTH CARLOS - JEREMIESpecimen (Source) Anatomical Location / LateralityCollection Method / VolumeCollection Time Received TimeBloodVenous blood / UnknownVenipuncture / Uaykvtn5404/27/2025 12:13 AM EST04/27/2025 12:19 AM EST Narrative Authorizing ProviderResult TypeResult StatusTansarwat Truong MDBLOOD BANK TEST ORDERABLESFinal ResultPerforming OrganizationAddressCity/State/ZIP CodePhone Number [facility] [place] [address] [place] [address], [place] * Type and screen (04/27/2025 12:13 AM EST)ComponentValueRef RangeTest Method Analysis TimePerformed AtPathologist AmipbbtjlTULK12/21/2025 2:18 AM ESTTTH BB - CLQFWHYLJSuclnbzs69/21/2025 2:18 AM ESTTTH BB - WELLSKYAntibody Screen Mzgwkauq10/21/2025 2:18 AM ESTTTH BB - WELLSKYSpecimen (Source)Anatomical Location / LateralityCollection Method / VolumeCollection TimeReceived Time BloodVenous blood / UnknownVenipuncture / Ovxzkku2404/27/2025 12:13 AM EST 04/27/2025 12:19 AM EST Narrative Authorizing ProviderResult TypeResult StatusTannicdana Truong MDBLOOD BANK TEST ORDERABLESEdited Result - FinalPerforming OrganizationAddressCity/State/ZIP Code Phone Number [facility] [place] [address] [place] [address], * PST TOP (04/27/2025 12:08 AM EST)ComponentValueRef RangeTest MethodAnalysis TimePerformed AtPathologist SignatureExtra TubeAuto Mzeheazf85/21/2025 2:02 AM ESTOHIOHE[facility] LABORATORYSpecimen (Source)Anatomical Location / LateralityCollection Method / VolumeCollection TimeReceived TimeBloodVenous blood / Ilptmpl2504/27/2025 12:08 AM EST04/27/2025 12:26 AM EST Narrative Authorizing ProviderResult TypeResult StatusDavid Kya Cook MDLAB BLOOD ORDERABLESFinal ResultPerforming OrganizationAddressCity/State/ZIP CodePhone Number [facility] [address] [place] [address], [place] [phone] * MF OB FOLLOW-UP, 1 FETUS (04/14/2025 9:15 AM EST) Only the most recent of2 resultswithin the time period is included. Anatomical RegionLateralityModalityOB-GYNUltrasoundSpecimen (Source)Anatomical Location / LateralityCollection Method / VolumeCollection TimeReceived Time 04/14/2025 8:13 AM EST Narrative 04/14/2025 9:33 AM EST NAME: ??DESMOND GUTIERREZ : 1990 SEX: F Accession Number: [id number] ORDERING PHYSICIAN: ABIOLA CHRIS REFERRING PHYSICIAN: ABIOLA CHRIS Coding Procedures ? 28642: Ultrasound, uterus, real time with image documentation, [...] (oz) ? 5 oz EFW by: ?Hadlock (ASH-GB-NW-FL) Extended Tibia ??44.5 mm 27w 3d 67% [place] [employer] Specialist ? 3.3 mm CM ? 8.8 mm [...] view. RVOT view. LVOT view. 3-vessel view. 1-bapinx-ukxvgmq view. Situs. Aortic arch view. ? Bicaval [...] the patient as necessary. Procedure Note Abiola Chris MD - 04/14/2025 NAME: DESMOND GUTIERREZ : 1990 SEX: F Accession Number: [id number] ORDERING PHYSICIAN: ABIOLA CHRIS REFERRING PHYSICIAN: ABIOLA CHRIS Coding Procedures 23015: Ultrasound, uterus, real time with image documentation, [...] EFW (oz) 5 oz EFW by: Hadlock (TXH-WR-XC-FL) Extended Tibia 44.5 mm 27w 3d 67% [place] [employer] Specialist 3.3 mm CM 8.8 mm 95% Nicolaides [...] view. RVOT view. LVOT view. 3-vessel view. 7-qvkqef-hlujpkl view. Situs. Aortic arch view. Bicaval view. [...] thepatient as necessary. Authorizing ProviderResult TypeResult StatusAbiola Chris MDIMG US ORDERABLESFinal Result * Ultrasound - [...] OrganizationAddressCity/State/ZIP CodePhone Number MANUALLY TRANSCRIBED RESULTS * High risk HPV w/krzysztof (10/01/2024 1:50 PM EDT)ComponentValueRef RangeTest MethodAnalysis TimePerformed AtPathologist SignatureHPV 16NegativeNegative 10/02/2024 2:06 PM [facility]ATORYHPV 18Negative Cfinjlsi63/28/2025 2:06 PM [facility]ORATORYOTHER HIGH RISK EPOCdkisundPtqplbtb28/28/2025 2:06 PM [facility]ATORYComment:HPV types 31, 33, 35, 39, 45, 52, 56, 58, 59, 66, and 68 DNA were undetectable.Specimen (Source)Anatomical Location / LateralityCollection Method / VolumeCollection TimeReceived TimeThinPrep cytology technique (qualifier value)Cervix uteri structure / Lfkurxy9810/01/2024 1:50 PM EDT 10/02/2024 3:04 AM EDT Narrative Authorizing ProviderResult TypeResult StatusIvory Du SEED POTATO CUTTER-CNMLAB BLOOD ORDERABLESFinal ResultPerforming OrganizationAddressCity/State/ZIP CodePhone Number [facility] [address] [place] [address], from Last 3 Months or Most Recently Relevant to Health Maintenance Insurance Advance Directives * Full Code (Latest Code Status on File) Date ActivatedDate QljgzscgycfDgnyrgse84/21/2025 12:01 AM04/28/2025 1:30 AM * Full Code Date ActivatedDate BqzyrgoqjpiBbxenocf18/19/2024 10:52 PM03/28/2024 11:13 PM * Full Code Date ActivatedDate InactivatedComments12/08/2017 8:05 AM12/10/2017 9:50 AM * Full Code Date ActivatedDate InactivatedComments12/01/2017 8:08 AM12/02/2017 12:35 PM Care Teams Team MemberRelationshipSpecialtyStart DateEnd Date Rebecca Rizvi APRN-JEYSON [address] [place] [address] PCP - GeneralNurse Practitioner08/23/22
--- OUTSIDE RECORDS SUMMARY | 2025-04-30 07:51 | XMS_ITS | Encounter Summary ---
Author Organization [facility] Address [address] [place] [address] Care Team Providers Care Stereo Plotter Operator Name Role Phone Rebecca Rizvi MD Primary Care Provider [phone] Encounter Details DateTypeDepartmentCare Team (Latest Contact Info)Pqmnapkfygw05/23/2025Telephone [facility] [address] [place] [phone] Sosa Funes MA [address] [place] [address] Social History Tobacco UseTypesPacks/DayYears UsedDateSmoking Tobacco: Never Assessed Estimated Date of FkuzjkapYlnrvlqqEyr99/11/2026Based on UltrasoundSex and Gender InformationValueDate RecordedSex Assigned at BirthNot on fileLegal SexFemale 07/20/2022 6:43 PM EDTGender IdentityNot on fileSexual OrientationNot on file documented as of this encounter Miscellaneous Notes * Telephone Encounter - Sosa Funes MA - 04/29/2025 10:02 AM EST Pt called angry that she called the office yesterday and spoke w/someone to deliver a message to Dr. Hayden and expected a phone call from him! I Advised the patient that the message was given to Dr. Hayden however, he was seeing patients as well. Pt stated yeah, well I need to speak with him its urgent. (Patient was very rude and nasty on the phone as well as demanding.) Pt said if he does NOT call me back I will be seeing him today. I asked if she has an appointment? She said NO but, I will seehim. I advised the pt that Dr. Hayden is seeing his patients and I will let our correctional officer sergeant know.Pt said ahh yeah. And hung up. I went and advised Evelyn Kee LPN correctional officer sergeant know of how thispatient spoke and her demands. (Patient every times she calls when I am in the triage is a very rude and disrespectful patient.) documented in this encounter Plan of Treatment DateTypeDepartmentCare Team (Latest Contact Info)Ptojidcqtdv26/31/2025 10:20 AM ESTRoutine NOMTiffany [facility] [address] [place] [phone] Jaylin Chung NP [address] [place] [phone] 05/21/2025 3:50 PM ESTRoutine NOMT[facility] [address] [place] [phone] Rene Hayden DO [address] [place], [place] [phone] documented as of this encounter Visit Diagnoses Not on filedocumented in this encounter Care Teams Team MemberRelationshipSpecialtyStart DateEnd Date Rebecca Rizvi MD [address] [place] [phone] PCP - GeneralFamily Medicine01/03/25documented as of this encounter
--- OUTSIDE RECORDS SUMMARY | 2025-04-30 07:52 | XMS_ITS | Patient Health Record ---
Author Organization [facility] Address [address] [place] [address] Care Team Providers Care Hospital Aide Name Role Phone Dr. Howard Arriaga Primary Care Provider [phone] Erin Guallpa [phone] Reason For Referral No Information Encounters Encounter Location Date Provider Diagnosis [facility] [address] [place] [address] 03/14/2025 Erin Wheeler Acute gingivitis, plaque induced K05.00 ; Other dental procedure status Z98.818 and Encounter for dental examination and cleaning with abnormal findings Z01.21 [facility] [address] [place] [address] 08/22/2024 Erin Wheeler Acute gingivitis, plaque induced K05.00 Assessments Encounter Date Diagnosis (ICD Code) Assessment Notes Treatment Notes Treatment Clinical Notes Section Notes 03/14/2025 Acute gingivitis, plaque induced (ICD-10 - K05.00) 08/22/2024ute gingivitis, plaque induced (ICD-10 - K05.00)03/14/2025Other dental procedure status (ICD-10 - Z98.818)03/14/2025Encounter for dental examination and cleaning with abnormal findings (ICD-10 - Z01.21) Plan Of Treatment Next Appt Details Provider Name:Erin Wheeler , 09/26/2025 11:15:00 AM, [address] [place], [address], Insurance Providers Payer Name Payer Address Payer Phone Subscriber Number Group Number Insured Name Patient Relationship to Insured Coverage Start Date Coverage End Date [employer] [place] Medicaid [address] [address] [place] [address] [id number] BRENDA LOGAN Self - patient is the insured Dental Wrap [facility]ly [facility] [address] [place] [id number] LOGANlf - patient is the [id number] 2024
--- OUTSIDE RECORDS SUMMARY | 2025-04-30 07:52 | XMS_ITS | Clinical Summary ---
Author Organization [facility] Address [address] [place] [address], [address] [place] [address] Care Team Providers Care Probation Supervisor Name Role Phone Neto Karen HILARION - LIBRARY SERVICES ASSISTANT Primary Care Provider Unavailable Allergies No known [...] InformationValueDate RecordedSex Assigned at BirthNot on fileLegal SblGzrfsr65/28/2017 11:11 AM ESTGender IdentityNot on fileSexual OrientationNot on file Last Filed Vital Signs Vital SignReadingTime TakenCommentsBlood Hzhtovnc675/7601/ 3:41 PM EST Ufvne3847/ 3:41 PM QDWAzbbqhwgdch19.4 ??C (97.6 ??F)02/19/2020 1:24 PM EDTRespiratory Rate--Oxygen Ppzhyzpzvq057%06/30/2017 10:28 AM ESTInhaled Oxygen Concentration--Cvulzn49.7 kg (136 lb)06/03/2020 3:41 PM UIKPkfmdq320 cm (5' 3 ) 06/30/2017 10:28 AM ESTBody Mass Index24.0906/30/2017 10:28 AM EST Plan of Treatment Not on file Insurance Care Teams Team MemberRelationshipSpecialtyStart DateEnd Date Karne Duque APRN - LIBRARY SERVICES ASSISTANT PCP - GeneralNurse Raxeoodytfvi52/19/17
--- OUTSIDE RECORDS SUMMARY | 2025-04-30 07:52 | XMS_ITS | Clinical Summary ---
Author Organization [facility] Address [address] [place] [address] Care Team Providers Care Yardage Control Operator Forming Name Role Phone Rebecca Rizvi MD Primary Care Provider [phone] Allergies No known active allergies Medications MedicationSigDispense QuantityRefillsLast FilledStart DateEnd DateStatus biotin 5 MG capsule Take 5 mg by mouth in the morning.5Active Docusate Sodium (DSS) 100 MG capsule Indications:Constipation during in second trimester ([facility])Take 1 capsule (100 mg) by mouth in the morning and 1 capsule (100 mg) before bedtime. 60 capsule 5Active Vit-Fe Fumarate-FA ( Vitamins) 28-0.8 MG tablet Indications:Positive urine test ([facility]),, unspecified gestational age ([facility]),Encounter for supervision of normal first in first trimester ([facility])Take 1 tablet by mouth Daily 30 tablet 5Active acetaminophen (Tylenol) 160 MG/5ML liquid Indications:Nonintractable headache, unspecified chronicity pattern, unspecified headache typeTAKE 20.3 ML BY MOUTH EVERY 6 HOURS NEEDED FOR HEADACHES FOR UP TO 10 DAYS Strength: 160 MG/5ML 120 mL 5Active famotidine (Pepcid) 20 MG tablet Indications:Heartburn during in second trimester ([facility])Take 2 tablets (40 mg) by mouth in the morning. 60 tablet 6Active famotidine (Pepcid) 20 MG tablet Indications:Heartburn during in second trimester ([facility])Take 1 tablet (20 mg) by mouth in [...] in second trimester ([facility])Take 2 tablets (40 mg) by mouth in the morning. 60 tablet Discontinued(Reorder) Active Problems ProblemNoted DateDiagnosed DateMultigravida of advanced maternal age in second trimester ([facility])03/13/2025H/O LEEP105/13/2024HSV (herpes simplex virus) chjgjgovn72/06/2025arrier of genetic defect for sewhuvfvlqed73/06/2025Twin gestation in second trimester ([facility])03/13/2025Estimated Date of YuiahxlfRxtrpwrdCyf02/11/2026Based on Ultrasound Encounters DateTypeDepartmentCare MvjtHizslroslxc39/23/2025Telephone [facility] [address] [place] [address] Evelyn Kee LPN 04/29/2025Telephone [facility] [address] [place] [address] Sosa Funes MA 04/26/2025linisync Result Encounter NOMS External Department Unsolicited Mamadou Hayden, DO 04/26/2025linisync Result Encounter NOMS External Department Unsolicited Mamadou Hayden, DO 04/26/2025linisync Result Encounter NOMS External Department Unsolicited Mamadou Hayden, DO 04/23/2025 1:40 PM ESTRoutine [facility] [address] [place] [address] Mamadou Hayden, Third trimester ([facility]); 28 weeks gestation of ([facility]); Multigravida of advanced maternal age in second trimester ([facility]); Twin following selective reduction, antepartum ([facility]) 04/23/2025amboo flowsheet [facility] [place] [facility] [address] [address] Mamadou Hayden, 04/16/2025Telephone [facility] [address] [address] Sosa Funes MA 04/15/2025Refill [facility] [address] [place] [address] Sosa Funes MA Heartburn during in second trimester ([facility])04/14/2025Telephone [facility] [place] [facility] [address] [address] Janett Zheng PA 04/10/2025 1:30 PM ESTRoutine [facility] [address] [place] [address] Janett Zheng PA Second trimester ([facility]); 26 weeks gestation of ([facility])04/10/2025linisync Result Encounter NOMS External Department Unsolicited Mamadou Hayden, DO 04/10/2025amboo flowsheet [facility] [address] [address] Janett Zheng, PA 04/08/2025Telephone [facility] [address] [address] Evelyn Kee LPN 03/18/2025bstract [facility] [address] 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; HSV (herpes simplex virus) infection; H/O LEEP; Multigravida of advanced maternal age in second trimester ([facility]); Twin gestation in second trimester, unspecified multiple gestation type ([facility]); Diabetes mellitus screening; Screen for STD (sexually transmitted disease)03/13/2025Patient Outreach [facility] [address] [place] [id number] Janett Limon, JAYESH 03/13/2025amboo flowsheet [facility] [address] [address] Mamadou Hayden, DO 03/12/2025bstract [facility] [address] [address] Mamadou Hayden, DO 03/11/2025External Result Encounter [facility] [address] [address] Mamadou Hayden, DO 03/04/2025linisync Result Encounter NOMS External Department Unsolicited Mamadou Hayden, DO 02/20/2025Refill [facility] [address] [address] Janett Zheng PA Nonintractable headache, unspecified chronicity pattern, unspecified headache type02/20/2025Telephone [facility] [address] [address] Mamadou Hayden, DO 02/19/2025bstract [facility] [address] [phone] Mamadou Hayden, DO 02/19/2025bstract [facility] [address] [address] Mamadou Hayden, DO 02/12/2025 3:20 PM EDTRoutine [facility] [address] [address] Jaylin Chung, NATHANIEL Second trimester ([facility]); 18 weeks gestation of ([facility])5Clinisync Result Encounter NOMS External Department Unsolicited Mamadou Hayden, 5Bamboo flowsheet [facility] [address] [phone] Jaylin Chung NP 02/10/2025Telephone [facility] [address] [address] Sosa Funes MA from Last 3 Months Social History Tobacco UseTypesPacks/DayYears UsedDateSmoking Tobacco: Never Assessed Estimated Date of SvxsncazIpwmmoriQtj84/11/2026Based on UltrasoundSex and Gender InformationValueDate RecordedSex Assigned at BirthNot on fileLegal SexFemale 07/20/2022 6:43 PM EDTGender IdentityNot on fileSexual OrientationNot on file Last Filed Vital Signs Vital SignReadingTime TakenCommentsBlood Qvjuvsbd312/7004/23/2025 1:54 PM EST Pulse--Temperature--Respiratory Rate--Oxygen Saturation--Inhaled Oxygen Concentration--Iheyli30.9 kg (185 lb)04/23/2025 1:54 PM ESTHeight--Body Mass Index-- Plan of Treatment DateTypeDepartmentCare Team (Latest Contact Info)Hotyephuwbe93/ 10:20 AM ESTRoutine [facility] [address] [address] Jaylin Chung, SILK SPOOLER [address] [place] [phone] 05/21/2025 3:50 PM ESTRoutine [facility] [address] [address] Mamadou Hayden, DO [address] [place] [address] Procedures Procedure NamePriorityDate/TimeAssociated DiagnosisCommentsALL CBC WITH AUTO BKXQVbghiqs60/20/2025 6:50 PM EST US OB KIWLTYMF11/20/2025 5:17 PM EST US OB CERVICAL QXLROD6204/26/2025 5:17 PM EST UJZTBNCGWdrrxfe77/20/2025 3:25 PM EST TBH UA (CLEAN/CATCH) BUSINESS OPERATIONS ANALYST/MICRO IF IND.Jyeccpt3804/26/2025 3:25 PM EST POCT URINALYSIS OGNVAZCZSwufelm82/17/2025 2:02 PM EST 28 weeks gestation of ([facility]) GLUCOSE 1 IHFZWcjaiyx23/04/2025 1:29 PM EST ALL CBC WITH AUTO OWWHCzhlzdq13/04/2025 1:29 PM EST RECURRENT VAGINITIS (HTRX)Ufydika6403/13/2025 11:37 AM EST POCT URINALYSIS MQKEHKAYXjozloz50/06/2025 10:18 AM EST Second trimester ([facility]) US OB 14+ WEEKS ANATOMY SCAN03/11/2025 3:30 PM EST ALL MISCELLANEOUS YHDKBgpyhve40/28/2025 12:49 PM EDT ALL VITAMIN Y4Piciffv43/08/2025 5:26 PM EDT AFP, SERUM, OPEN SPINA HPOSAYHghprhd03/08/2025 5:26 PM EDT BOX SUZLKxzykhy81/08/2025 5:26 PM EDT from Last 3 Months Results * (ABNORMAL) ALL CBC WITH AUTO DIFF (04/26/2025 6:50 PM EST) Only the most recent of2 resultswithin the time period is included. ComponentValueRef RangeTest MethodAnalysis TimePerformed AtPathologist Signature TBH WBC9.14.0 - 11.0 10 3/uLTBHTBH RBC3.77(L)4.20 - 5.40 10 6/uLTBHTBH HGB11.4 (L)12.0 - 16.0 g/dLTBHTBH HCT33.1(L)36.0 - 48.0 %TBHTBH MCV87.881.0 - 99.0 fLTBH TBH MCH30.226.7 - 34.0 pgTBHTBH MCHC34.429.9 - 35.2 g/dLTBHTBH RDW13.011.0 - 15.0 %TBHTBH PGT259071 - 450 10 3/uLTBHTBH MPV10.59.5 - 13.5 fLTBHNEUTROPHILS PERCENT AUTO70.143.0 - 75.0 %TBHLYMPHOCYTES PERCENT AUTO21.220.5 - 60.0 %TBH MONOCYTES PERCENT AUTO5.61.7 - 12.0 %TBHTBH EO %1.40.9 - 7.0 %TBHBASOPHILS PERCENT AUTO0.30.2 - 2.0 %TBHIMMATURE GRANULOCYTES PCT AUTO1.4(H)0.0 - 0.5 %TBH NEUTROPHILS ABSOLUTE AUTO6.41.4 - 6.5 10 3/uLTBHLYMPHOCYTES ABSOLUTE AUTO1.91.2 - 3.8 10 3/uLTBHMONOCYTES ABSOLUTE AUTO0.50.3 - 0.8 10 3/uLTBHTBH EO #0.10.0 - 0.7 10 3/uLTBHBASOPHILS ABSOLUTE AUTO0.00.0 - 0.1 10 3/uLTBHIMMATURE GRANULOCYTES ABS AUTO0.13(H)0.00 - 0.03 10 3/uLTBHSpecimen (Source)Anatomical Location / LateralityCollection Method / VolumeCollection TimeReceived Time 04/26/2025 6:50 PM EST04/26/2025 7:23 PM EST Narrative CLINISYNC - 04/26/2025 7:31 PM EST Authorizing ProviderResult TypeResult StatusCorey Jackelyn DOCLINISYNCFinal Result Performing OrganizationAddressCity/State/ZIP CodePhone Number CLINISYNC [facility] * US OB PLACENTA (04/26/2025 5:17 PM EST)Anatomical RegionLateralityModality OtherSpecimen (Source)Anatomical Location / LateralityCollection Method / VolumeCollection TimeReceived Time04/26/2025 5:17 PM EST Narrative 04/26/2025 5:20 PM EST [facility] ?[address] ? [place] [id number] ? Ultrasound Report ? Signed ? Patient: MADI LOGAN ?MR#: [id number] ?? : 1990 ?Acct:[id number] ?? Age/Sex: 34 / F ?ADM Date: 04/26/25 ?? Loc: [facility] ??250-1 ? Attending Dr: Mamadou Hayden D.O. ? Ordering Physician: Mamadou Hayden D.O. ?? Date of Service: 04/26/25 ?? Procedure(s): US OB placenta ?? Accession Number(s): [id number] ? cc: Mamadou Hayden D.O.; Rebecca Rizvi NP ? [facility] ? [address] ? [place], [place] [address] ? Patient Name: ?? MADI LOGAN ? MRN: [id number] ? date: 1990 ?Sex: F ?? Assigned Patient Location: [facility] ?? Current Patient Location: [facility] ?? Accession/Order Number: [id number] ?? Exam Date: 04/26/2025 ??16:29 ?Report Date: [...] length. ? Impression dictated by: Howard Huang Jr. DSulema ??04/26/2025 5:17 PM ? Dictation Location: RADIO-PC-18 ? Electronically authenticated by: [id number] ??Y ?? Date: 04/26/2025 ??17:17 ? Dictated By: ?Howard Huang M.D. ? Signed By: ?04/26/250 ? DD/ 1717 ? TD/TT: ? Guest Specialist: Procedure Note Radiology, Radiologist, MD - 04/26/2025 [place] [address] Ultrasound Report Signed Patient: MADI LOGAN NMR#: [id number] : 1990Acct:[id number] Age/Sex: 34 / FADM Date: 04/26/25 Loc: [facility] 250-[address]: Mamadou Hayden D.O. Ordering Physician: Mamadou Hayden D.O. Date of Service: 04/26/25 Procedure(s): US OB placenta Accession Number(s): [id number] cc: Mamadou Hayden D.O.; Rebecca Rizvi NP The [address] [address] Patient Name: MADI LOGAN MRN: [id number] date: 1990 Sex: F Assigned Patient Location: [facility] Current Patient Location: [facility] Accession/Order Number: [id number] Exam Date: 04/26/2025 16:29 Report Date: 04/26/2025 [...] length. Impression dictated by: Howard Huang Jr., D.Chelsie 04/26/2025 5:17 PM Dictation Location: [place] [address] Electronically authenticated by: [id number] Y Date: 7:17 Dictated By: Howard Huang M.D. Signed By:04/26/25 1720 DD/ 1717 TD/TT: Guest Specialist: Authorizing ProviderResult TypeResult StatusCorey Jackelyn DOCLINISYNC IMAGINGFinal Result * US OB CERVICAL LENGTH (04/26/2025 5:17 PM EST)Anatomical RegionLaterality ModalityOtherSpecimen (Source)Anatomical Location / LateralityCollection Method / VolumeCollection TimeReceived Time04/26/2025 5:17 PM EST Narrative 04/26/2025 5:20 PM EST [facility] ?[address] ? [place] [address] ? Ultrasound Report ? Signed ? Patient: MADI LOGAN N ?MR#: [id number] ?? : 1990 ?Acct:[id number] ?? Age/Sex: 34 / F ?ADM Date: 04/26/25 ?? Loc: [facility] ??250-1 ? Attending Dr: Mamadou Hayden D.O. ? Ordering Physician: Mamadou Hayden D.O. ?? Date of Service: 04/26/25 ?? Procedure(s): US OB cervical length ?? Accession Number(s): [id number] ? cc: Mamadou Hayden D.O.; Rebecca Rizvi NP ? [facility] ? [address] ? [place] [address] ? Patient Name: ?? MADI LOGAN ? MRN: [facility]:[id number] ? date: 1990 ?Sex: F ?? Assigned Patient Location: [facility] ?? Current Patient Location: [facility] ?? Accession/Order Number: [id number] ?? Exam Date: 04/26/2025 ??16:20 ?Report Date: [...] Dictation Location: RADIO-PC-18 ? Electronically authenticated by: [id number] ??Y ?? Date: 04/26/2025 ??17:17 ? Dictated By: ?Howard Huang M.D. ? Signed By: ?04/26/25 1720 ? DD/ 1717 ? TD/TT: ? Guest Specialist: Procedure Note Radiology, Radiologist, MD - 04/26/2025 [place] [address] Ultrasound Report Signed Patient: MADI LOGAN [facility]#: [id number] : 1990Acct:[id number] Age/Sex: 34 / FADM Date: 04/26/25 Loc: [facility] 250-[address]: Mamadou Hayden D.O. Ordering Physician: Mamadou Hayden D.O. Date of Service: 04/26/25 Procedure(s): US OB cervical length Accession Number(s): [id number] cc: Mamadou Hayden D.O.; Rebecca Rizvi NP The [address] [address] Patient Name: MADI LOGAN MRN: [id number] date: 1990 Sex: F Assigned Patient Location: [facility] Current Patient Location: [facility] Accession/Order Number: [id number] Exam Date: 04/26/2025 16:20 Report Date: 04/26/2025 [...] Jr., D.O. 04/26/2025 5:17 PM Dictation Location[facility] Electronically authenticated by: [id number] Y Date: 7:17 Dictated By: Howard Huang M.D. Signed By:04/26/251719 DD/ 16 TD/TT: Guest Specialist: Authorizing ProviderResult TypeResult StatusCorey Jackelyn DOCLINISYNC IMAGINGFinal Result * (ABNORMAL) AMNISURE (04/26/2025 3:25 PM EST)ComponentValueRef RangeTest Method Analysis TimePerformed AtPathologist SignatureTBH AMNISUREPOSITIVE(A)NEGATIVE TBHSpecimen (Source)Anatomical Location / LateralityCollection Method / Volume Collection TimeReceived Time04/26/2025 3:25 PM EST04/26/2025 3:56 PM EST Narrative CLINISYNC - 04/26/2025 4:21 PM EST Authorizing ProviderResult TypeResult StatusCorey Jackelyn DOLAB BLOOD ORDERABLES Final ResultPerforming OrganizationAddressCity/State/ZIP CodePhone Number CLINISYNC [facility] * (ABNORMAL) [facility] UA (CLEAN/CATCH) BUSINESS OPERATIONS ANALYST/MICRO IF IND. (04/26/2025 3:25 PM EST) [...] Performing OrganizationAddressCity/State/ZIP CodePhone Number CLINISYNC [facility] * (ABNORMAL) POCT urinalysis dipstick manually resulted [...] / Laterality Collection Method / VolumeCollection TimeReceived DpwmGhisq33/17/2025 2:02 PM EST Narrative Authorizing ProviderResult TypeResult StatusCorey Jackelyn DOPOINT OF CARE TEST ENTER/EDIT ORDERABLESFinal Result * GLUCOSE 1 HOUR (04/10/2025 1:29 PM EST)ComponentValueRef RangeTest Method Analysis TimePerformed AtPathologist SignatureGLUCOSE 1 LVCZ361<130 mg/dLTBH Specimen (Source)Anatomical Location / LateralityCollection Method / Volume Collection TimeReceived Time04/10/2025 1:29 PM EST04/10/2025 1:40 PM EST Narrative CLINISYNC - 04/10/2025 2:00 PM EST Authorizing ProviderResult TypeResult StatusCorey Jackelyn DOLAB BLOOD ORDERABLES Final ResultPerforming OrganizationAddressCity/State/ZIP CodePhone Number CLINISYNC [facility] * RECURRENT VAGINITIS (HTRX) (03/13/2025 11:37 AM EST)ComponentValueRef Range Test MethodAnalysis TimePerformed AtPathologist SignatureATOPOBIUM VAGINAE0 19.961 - 24.689 ppm03/14/2025 7:09 AM ESTHealthTrackRx at LabPortATOPOBIUM VAGINAENot Zasfswtn79.961 - 24.689 ppm03/14/2025 7:09 AM ESTHealthTrackRx at LabPortBVAB 2,3 (BACTERIAL VAGINOSIS ASSOCIATED BACTERIA 2, 3); MOBILUNCUS SPP 019.961 - 24.689 ppm03/14/2025 7:09 AM ESTHealthTrackRx at LabPortBVAB 2,3 (BACTERIAL VAGINOSIS ASSOCIATED BACTERIA 2, 3); MOBILUNCUS SPPNot Detected 19.961 - 24.689 ppm03/14/2025 7:09 AM ESTHealthTrackRx at LabPortCANDIDA ALBICANS, PARAPSILOSIS, YPWJRUVAXR658.000 - 30.347 ppm03/14/2025 7:09 AM EST [facility] at LabPortCANDIDA ALBICANS, PARAPSILOSIS, TROPICALISNot Detected 23.000 - 30.347 ppm03/14/2025 7:09 AM ESTHealthTrackRx at LabPortCANDIDA EDLBZJJR721.000 - 31.618 ppm03/14/2025 7:09 AM ESTHealthTrackRx at LabPort BRAN GLABRATANot Nnhbazuj47.000 - 31.618 ppm03/14/2025 7:09 AM EST [facility] at LabPortCANDIDA WAQHYK934.000 - 30.873 ppm03/14/2025 7:09 AM ESTHealthTrackRx at LabPortCANDIDA KRUSEINot Jboonftf43.000 - 30.873 ppm 03/14/2025 7:09 AM ESTHealthTrackRx at LabPortCHLAMYDIA MFMWYCDMXGJ436.000 - 31.586 ppm03/14/2025 7:09 AM ESTHealthTrackRx at LabPortCHLAMYDIA TRACHOMATIS Not Bvwegyqz82.000 - 31.586 ppm03/14/2025 7:09 AM ESTHealthTrackRx at [facility]Port GARDNERELLA FVCBEMGMF046.961 - 24.689 ppm03/14/2025 7:09 AM ESTHealthTrackRx at [facility]LL[facility] VAGINALISNot Mxatvtgx71.961 - 24.689 ppm03/14/2025 7:09 AM ESTHealthTrackRx at LabPortMEGASPHAERA (TYPES 1, 2)019.961 - 24.689 ppm 03/14/2025 7:09 AM ESTHealthTrackRx at LabPortMEGASPHAERA (TYPES 1, 2)Not Asuoxtkg23.961 - 24.689 ppm03/14/2025 7:09 AM ESTHealthTrackRx at [facility] NEISSERIA KLDRNLWTLIA184.000 - 32.587 ppm03/14/2025 7:09 AM ESTHealthTrackRx at LabPortNEISSERIA GONORRHOEAENot Fdcgbdjc71.000 - 32.587 ppm03/14/2025 7:09 AM ESTHealthTrackRx at LabPortTRICHOMONAS UOAHPYYLR060.000 - 31.995 ppm 03/14/2025 7:09 AM ESTHealthTrackRx at LabPortTRICHOMONAS VAGINALISNot Yfqbwbsi27.000 - 31.995 ppm03/14/2025 7:09 AM ESTHealthTrackRx at [facility] MYCOPLASMA NXICVLWDHL127.961 - 24.689 ppm03/14/2025 7:09 AM ESTHealthTrackRx at LabPortMYCOPLASMA GENITALIUMNot Isjlxgzr23.961 - 24.689 ppm03/14/2025 7:09 AM ESTHealthTrackRx at LabPortSpecimen (Source)Anatomical Location / LateralityCollection Method / VolumeCollection TimeReceived TimeTissue 03/13/2025 11:37 AM EST03/14/2025 1:59 AM EST Narrative Authorizing ProviderResult TypeResult StatusMamadou Hayden DOLAB BLOOD ORDERABLES Final ResultPerforming OrganizationAddressCity/State/ZIP CodePhone Number [facility] [address] [address] * US OB 14+ weeks anatomy scan (03/11/2025 3:30 PM EST)Anatomical Region LateralityModalityBodyUltrasoundSpecimen (Source)Anatomical Location / LateralityCollection Method / VolumeCollection TimeReceived Time03/11/2025 3:30 PM EST Narrative 03/11/2025 3:30 PM EST THIS EXAM WAS PERFORMED AT [facility] NAME: ??DESMOND GUTIERREZ : 1990 SEX: F Accession Number: [id number] ORDERING PHYSICIAN: MAMADOU HAYDEN REFERRING PHYSICIAN: MAMADOU HAYDEN Coding Procedures ? 32630: Ultrasound, uterus, real time with image documentation, and maternal evaluation ? plus detailed anatomic examination, transabdominal approach;single or first gestation. 2 ? 34616: Ultrasound, uterus, real time with image documentation, [...] view: limited by position and activity. Medical Remediation Project Engineer Remediation Project Engineer declined Twin . Number of fetuses: 2. [...] (oz) ? 14 oz EFW by: ?Hadlock (CPU-GC-GJ-FL) Extended Tibia ??31.1 mm 21w 3d 40% Bibiana Zipper Machine Operator ? 10.4 mm CM ? 3.6 mm [...] (oz) ? 2 oz EFW by: ?Hadlock (MSZ-XF-KD-FL) Extended Tibia ??32.2 mm 21w 6d 57% Bibiana Zipper Machine Operator ? 5.4 mm CM ? 6.0 mm [...] Face: Orbits. Heart/Thorax: 4-chamber view. 3-vessel view. 8-mibdcr-qlzkbra view. Situs. Aortic arch view. Bicaval view. [...] Lips. Nose. Heart / Thorax 4-chamber view. 2-jqftkm-roqxckn view. Situs. Aortic arch view. Cardiac rhythm. [...] Total discordance is 19.5% Recommendations Please see [facility] documentation from today. The patient is scheduled in four to six week(s) to complete anatomic survey. Subsequent follow up or other follow up as clinically determined by primary OB provider unless otherwise specified by [facility]. Results forwarded to ordering provider so they can follow up with the patient as necessary. Procedure Note Radiology, RadiologistMD - 03/11/2025 THIS EXAM WAS PERFORMED AT [facility] NAME: DESMOND GUTIERREZ Brigette : 1990 SEX: F Accession Number: [id number] ORDERING PHYSICIAN: MAMADOU HAYDEN REFERRING PHYSICIAN: MAMADOU HAYDEN Coding Procedures 41521: Ultrasound, uterus, real time with image documentation, and maternal evaluation plus detailed anatomic examination, transabdominalapproach;single or first gestation. 2 26260: Ultrasound, uterus, real time with imagedocumentation, transvaginal [...] Suboptimalview: limited by position and activity. Medical Remediation Project Engineer Remediation Project Engineer declined Twin . Number of fetuses: 2. [...] EFW (oz) 14 oz EFW by: Hadlock (EGA-UY-OZ-FL) Extended Tibia 31.1 mm 21w 3d 40% Bibiana Zipper Machine Operator 10.4 mm CM 3.6 mm 5% Nicolaides [...] EFW (oz) 2 oz EFW by: Hadlock (WRE-QG-SM-FL) Extended Tibia 32.2 mm 21w 6d 57% Bibiana Zipper Machine Operator 5.4 mm CM 6.0 mm 68% Nicolaides [...] Face: Orbits. Heart/Thorax: 4-chamber view. 3-vessel view. 0-rnpdds-qdzueys view. Situs.Aortic arch view. Bicaval view. Cardiac [...] Lips. Nose. Heart / Thorax 4-chamber view. 0-yppfxj-engmtpy view. Situs. Aortic archview. Cardiac rhythm. Abdomen [...] byprimary OB provider unless otherwise specified by [facility]. Results forwarded to ordering provider so they can follow up with thepatient as necessary. Authorizing ProviderResult TypeResult StatusCorey Jackelyn LA OB US PROCEDURES Final Result * ALL MISCELLANEOUS TEST (03/04/2025 12:49 PM EDT)ComponentValueRef RangeTest MethodAnalysis TimePerformed AtPathologist SignatureMISCELLANEOUS TESTCOMMENT. TBHComment: Test Ordered: [id number] Ivmnpfvlh-9-Wavpfywan, RBC Hyrosesns-9-Zpihkwbcu, RBC <0.3 mg/dL ML ?? Reference Range: . REFERENCE VALUE Reference interval (normal range): <=0.9 Therapeutic range: <=4.9 ADDITIONAL INFORMATION Liquid Chromatography-Tandem Mass Spectrometry (LC-MS/MS) This test was developed and its performance characteristics determined by [facility] in a manner consistent with CLIA requirements. This test has not been cleared or approved by the U.S. Food and Drug Administration. Performed at: ??ML - [facility] [address] ??[id number] Hand Mounter: Kellen De La Paz PhD, Phone: ??[phone] Performed at: ??CB - [facility] [place] ??[id number] Hand Mounter: Jose Rainey PhD, Phone: ??[phone] Specimen (Source)Anatomical Location / LateralityCollection Method / Volume Collection TimeReceived Time03/04/2025 12:49 PM EDT1 12:59 PM EDT Narrative CLINISYDE - 03/14/2025 5:09 PM EST [id number] Yjodjvemw-0-Bymzqcqsv, RBC Authorizing ProviderResult TypeResult StatusCorey Jackelyn DOCLINISYNCFinal Result Performing OrganizationAddSouthwood Psychiatric Hospitalty/State/ZIP CodePhone Number [facility] * BOX TEST (02/12/2025 5:26 PM EDT)ComponentValueRef RangeTest MethodAnalysis TimePerformed AtPathologist SignatureBOX TEST SENT BVSZSSLIBJTOAO4BZOXEMSDIFW0 02/12/2025TBHSpecimen (Source)Anatomical Location / LateralityCollection Method / VolumeCollection TimeReceived Time02/12/2025 5:26 PM EDT1 5:46 PM EDT Narrative CLINISYDE - 02/12/2025 5:59 PM EDT Authorizing ProviderResult TypeResult StatusCorey Jackelyn DOLAB BLOOD ORDERABLES Final ResultPerforming OrganizationAddressCity/State/ZIP CodePhone Number [facility] * AFP, SERUM, OPEN SPINA BIFIDA (02/12/2025 5:26 PM EDT)ComponentValueRef Range Test MethodAnalysis TimePerformed AtPathologist SignatureRESULTSReport.TBHTEST RESULTS:*Screen Negative*.TBHGEST. AGE ON COLLECTION DATE18.0. weeksTBHGESTAT. AGE BASED ONUltrasound.TBHComment: ?18.0 on 02/12/2025 Recalculations are not recommended when gestational dating by LMP and ultrasound are within 10 days. MATERNAL AGE AT EDD35.7. yrTBHRACECaucasian.NZZJFBRYQ356. lbsTBHINSULIN DEP DIABETESNo.TBHMULTIPLE GESTATIONTwins.TBHAFP YXLRZ506.6. ng/mLTBHAFP MOM3.18.TBH OSBR RISK 1 IN304.TBHINTERPRETATIONComment.TBHComment: Interpretation: [...] Customer Services to discuss available options. ??The [employer] recommends amniocentesis be offered to women age 35 and older. COMMENT:Comment.TBHComment: Kenia Schreiber, Ph.D., [facility] Director References: Available Upon Request. Multiples Of Median Cutoffs ?For AFP Elevations Palmer ?? 2.5 ? Black ?2.8 IDD ? 2.0 ? Twins ?4.5 ?Abbreviation Definitions IDD - Insulin Dep Diabetes OSBR - Open Spina Bifida Risk For further inquiries contact [employer], [employer] at [phone]. This test was developed and its performance characteristics determined by [employer]. It has not been cleared or approved by the Food and Drug Administration. Performed at: ?? - [facility] [place], [place] ??[id number] Hand Mounter: Steven Bernard [facility], Phone: ??[phone] Specimen (Source)Anatomical Location / LateralityCollection Method / Volume Collection TimeReceived Time02/12/2025 5:26 PM EDT1 5:46 PM EDT Narrative CLINISYNC - 02/15/2025 1:06 AM EDT N N ULTRASOUND [id number] N 2 172 N N N N N White/ Authorizing ProviderResult TypeResult StatusCorey Jackelyn DOLAB BLOOD ORDERABLES Final ResultPerforming OrganizationAddressCity/State/ZIP CodePhone Number [facility] * ALL VITAMIN B6 (02/12/2025 5:26 PM EDT)ComponentValueRef RangeTest Method Analysis TimePerformed AtPathologist SignatureVITAMIN B6, WWJVCH11.43.4 - 65.2 ug/LTBHComment: This test was developed and its performance characteristics determined by [facility]. It has not been cleared or approved by the Food and Drug Administration. Deficiency: <3.4 ? Marginal: ?3.4 - 5.1 Adequate: >5.1 Performed at: ?? - [facility] [address] ??[id number] Hand Mounter: Dea Amaya MD, Phone: ??[phone] Specimen (Source)Anatomical Location / LateralityCollection Method / Volume Collection TimeReceived Time02/12/2025 5:26 PM EDT1 5:46 PM EDT Narrative CLINISYNC - 02/17/2025 4:09 PM EDT Authorizing ProviderResult TypeResult StatusCorey Jackelyn DOCLINISYNCFinal Result Performing OrganizationAddressCity/State/ZIP CodePhone Number CLINISYNC [facility] from Last 3 Months Insurance Care Teams Team MemberRelationshipSpecialtyStart DateEnd Date Rebecca Rizvi MD [address] [place] [phone] [facility]01/03/25
[2025-04-30 11:36] VITALS: BP 128/67; PULSE 100
== END 2025-04-30 12:35 | disposition home or self-care (01) ==
LOC: US 07:48 → FBC 11:06
PROVIDERS: PCP Nurse Practitioner Family; Visit Provider Obstetrics & Gynecology
DX: O30.003 Twin pregnancy, unspecified number of placenta and unspecified number of amniotic sacs, third trimester (principal); Z14.8 Genetic carrier of other disease; O31 Complications specific to multiple gestation; O42.913 Preterm premature rupture of membranes, unspecified as to length of time between rupture and onset of labor, third trimester; Z3A.29 29 weeks gestation of pregnancy; O31.33 Continuing pregnancy after elective fetal reduction of one fetus or more, third trimester
CPT/HCPCS: 76818

== ENCOUNTER 2025-05-02 10:27 | Outpatient (OUT) | payer MEDICAID, SELFPAY ==
--- OUTSIDE RECORDS SUMMARY | 2025-04-23 13:40 | XMS_ITS | Encounter Summary ---
Author Organization [facility] Address [address] [place] [address] Care Team Providers Care Net Making Supervisor Name Role Phone Rebecca Rizvi MD Primary Care Provider [phone] Reason for Visit * ReasonCommentsRoutine Visit Encounter Details DateTypeDepartmentCare Team (Latest Contact Info)Weyngmncifi28/17/2025 1:40 PM ESTRoutine [facility] [address] [place] [address] Rene Hayden DO [address] [facility] [place] [address] Third trimester ([facility]); 28 weeks gestation of ([facility] Multigravida of advanced maternal age in second trimester ([facility]); Twin following selective reduction, antepartum ([facility]) Social History Tobacco UseTypesPacks/DayYears UsedDateSmoking Tobacco: Never Assessed Estimated Date of OijycswrYwbccpslFes86/11/2026Based on UltrasoundSex and Gender InformationValueDate RecordedSex Assigned at BirthNot on fileLegal SexFemale 07/20/2022 6:43 PM EDTGender IdentityNot on fileSexual OrientationNot on file documented as of this encounter Last Filed Vital Signs Vital SignReadingTime TakenCommentsBlood Zgghgyus144/7004/23/2025 1:54 PM EST Pulse--Temperature--Respiratory Rate--Oxygen Saturation--Inhaled Oxygen Concentration--Clymja34.9 kg (185 lb)04/23/2025 1:54 PM ESTHeight--Body Mass Index--documented in this encounter Progress Notes * Malena Betts, FIELD MERCHANDISER - 04/23/2025 1:40 PM EST Reason for [...] of advanced maternal age in second trimester ([facility]) 03/13/2025 H/O LEEP 03/13/2025 HSV (herpes simplex virus) infection 03/13/2025 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 Exam conducted with a lithostripper present. Vitals: There is no height or weight on file to calculate BMI. BP: 110/70 No LMP recorded. Patient is . Assessment/Plan ICD-10-CM 1. Third trimester ([facility]) Z34.93 2. 28 weeks gestation of ([facility]) Z3A.28 POCT urinalysis dipstick manually resulted 3. Multigravida of advanced maternal age in second trimester ([facility]) O09.522 4. Twin following selective reduction, antepartum ([facility]) O30.009 O31.30X0 Assessment/Plan Return OB: Patient presents [...] Plan of Treatment DateTypeDepartmentCare Team (Latest Contact Info)Ufyqixcwwnr22/31/2025 10:20 AM ESTRoutine [facility] [address] [place] [address] Jaylin Chung NP [address] [facility] [place] [phone] 05/21/2025 3:50 PM ESTRoutine [facility] [address] [place] [address] Rene Hayden, [address] [place] [address] documented as of this encounter Procedures Procedure NamePriorityDate/TimeAssociated DiagnosisCommentsPOCT URINALYSIS CNCMFLZSYhihwth06/17/2025 2:02 PM EST 28 weeks gestation of ([facility]) documented in this encounter Results [...] / LateralityCollection Method / VolumeCollection Time Received KnquKklqe44/17/2025 2:02 PM EST Narrative Authorizing ProviderResult TypeResult StatusCorey Jackelyn DOPOINT OF CARE TEST ENTER/EDIT ORDERABLESFinal Result documented in this encounter Visit Diagnoses Diagnosis Third trimester ([facility]) state, incidental 28 weeks gestation of ([facility]) Multigravida of advanced maternal age in second trimester ([facility]) Twin following selective reduction, antepartum ([facility]) documented in this encounter Care Teams Team MemberRelationshipSpecialtyStart DateEnd Date Rebecca Rivzi MD [address] [place] [phone] PCP - GeneralFamily Medicine01/03/25documented as of this encounter
--- OUTSIDE RECORDS SUMMARY | 2025-04-26 23:50 | XMS_ITS | Encounter Summary ---
Author Organization [facility] tem Address [id number] 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 Name Role Phone Rebecca Rizvi BLANCA-UTILITY AGENT Primary Care Provider Reason for Referral * Misc (Routine) - Pending ReviewSpecialtyDiagnoses / ProceduresReferred By ContactReferred To Contact Procedures Discharge Follow-Up [place] [address] Phone: tel: fax: Referral IDStatusReasonStart DateExpiration DateVisits RequestedVisits [id number] Reason for Visit * ReasonCommentsLEAKAGE/LOSS OF FLUID * Auth/CertSpecialtyDiagnoses / ProceduresReferred By ContactReferred To Contact Diagnoses Ruptured membranes Escobar Cook MD [facility] [facility], [place] [address] Phone: tel: fax: Referral IDStatusReasonStart DateExpiration DateVisits RequestedVisits [id number] Encounter Details DateTypeDepartmentCare Team (Latest Contact Info)Veuzlhglpek08/20/2025 11:50 PM EST - 04/27/2025 11:24 PM ESTHospital Encounter [facility] Labor [address] [place] [id number] Escobar Cook MD [address] [facility], [address] [place] [address] premature rupture of membranes (PPROM) with unknown [...] RecordedIn the past 12 months has the [employer], gas, oil, or water [employer] threatened to shut off services in your home?No03/28/2024Overall Financial Resource Strain (CARDIA)AnswerDate RecordedHow hard is it for you to pay for the very basics like food, housing, medical care, and heating?Not hard at all05/07/2024HQ-2AnswerDate RecordedTotal Boigd283PRAPARE - TransportationAnswerDate RecordedIn the past 12 months, has lack of transportation kept you from medical appointments or from getting medications?No 03/28/2024In the past 12 months, has lack of transportation kept you from meetings, work, or from getting things needed for daily living?No03/28/2024 Vernon Depression ScaleAnswerDate RecordedEdinburgh Depression Scale Xwdhf751The thought of harming myself has occurred to [...] of a household?No4Childcare AnswerDate RecordedDo problems getting childcare aide make it difficult for you to work or study?No05/07/2024EmploymentAnswerDate RecordedEmploymentUnknown 10/15/2018Hunger ScreeningAnswerDate RecordedWithin the past 12 months we worried whether our food would run out before we got money to buy more.Never True03/11/2025Within the past 12 months the food we bought just didn't last and we didn't have money to get more.Never True03/11/2025Purpose - LifeAnswerDate RecordedPurpose and direction in guexDwoymfd71/10/2021Estimated Date of QeajhottMmlxnduoIxa72/11/2026Based on UltrasoundSex and Gender InformationValue Date RecordedSex Assigned at PqbwdYepzrb92/02/2022 7:15 PM EDTLegal SexFemale 12/09/2014 2:44 PM EDTGender YdruohmpXayyln81/02/2022 7:15 PM EDTSexual DrwwziwquofPvqhecyw35/02/2022 7:15 PM EDTdocumented as of this encounter Last Filed Vital Signs Vital SignReadingTime TakenCommentsBlood Vliwpoek055/6004/27/2025 7:23 PM EST Gpyfu067704/27/2025 7:23 PM CDQIjzreshudqi28.7 ??C (98.1 ??F)04/27/2025 9:34 PM ESTRespiratory Lfuz923006/28/2024 7:23 PM ESTOxygen Wxiyijibwe28%04/27/2025 9:00 AM ESTInhaled Oxygen Concentration--Weight--Height--Body Mass Index--documented in this encounter Functional Status * HEENTQuestionAnswerDate of AssessmentAuthorHEENT (WDL)WDL106/28/2024 7:00 PM Shanika Mcginnis RN * IP Hunger/Food Insecurity ScreeningQuestionAnswerDate of AssessmentAuthor Hunger Screening Complete?Yes04/27/2025 12:24 AM Kenia Barton RNPt. Eligible for Food / XfhfusxCo74/21/2025 12:24 AM Kenia Barton RNIf Eligible: Received Food BoxNot Offered to Ggpanrs7004/27/2025 12:24 AM Kenia Rankin RN * Vaginal DischargeAnswerDate of MwwbixrebvCptsooTovpt63/21/2025 7:00 PM Shanika Bearden RN * Preeclampsia AssessmentAnswerDate of QxwcprdyfiYcesaqZUR99/21/2025 7:00 PM Shanika Bearden RN * ActivityQuestionAnswerDate of AssessmentAuthorActivity PerformedResting in bed 04/27/2025 7:00 AM Kaleigh Mora RNActivity ResponseTolerated well 04/27/2025 7:00 AM Kaleigh Mora RNRange of MotionActive;All extremities 04/27/2025 7:00 AM Kaleigh Mora RNToileting AssistanceAmbulate to qjtqooug28/21/2025 7:00 AM Kaleigh Mora RNRepositionedTurns self 04/27/2025 7:00 AM Kaleigh Mora RNTransport BtjjagDdygzmrlki48/21/2025 7:00 AM Kaleigh Mora RNBed PositionSelf /21/2025 7:00 AM Kaleigh Byers RN * Deterioration IndexQuestionAnswerDate of AssessmentAuthorDeterioration Index (30-60 mod; 60+ high)16.19106/28/2024 11:15 PM Raudel, Clindoc * ProgesteroneQuestionAnswerDate of AssessmentAuthorDid patient receive Progesterone this ?No04/27/2025 12:26 AM Kenia Barton RNDid the mother have a previous bptlwfcpNs25/21/2025 12:26 AM Kenia Barton RN * SteroidQuestionAnswerDate of AssessmentAuthorDid patient receive Steroids prior to admission for lung ybbhyoqlDwr01/21/2025 12:26 AM Kenia Barton RNDate last dose of Steroid was ibpon7124594/21/2025 12:26 AM Kenia Barton RNTotal number of doses npoowzrv077/21/2025 12:26 AM Kenia Barton RN * Human Trafficking ScreenQuestionAnswerDate of AssessmentAuthorHuman Trafficking ScreenNo present sstfwbia63/21/2025 12:20 AM Kenia Barton RN * PPH Admission and Labor Risk FactorsQuestionAnswerDate of AssessmentAuthor Prior , uterine surgery, other multiple jjlguxmrdalz378/21/2025 8:00 PM Shanika Mcginnis RNGreater than 4 prior vaginal tfiyzr901 8:00 PM Shanika Mcginnis RNLarge myomas/fibroids > 3tk883 8:00 PM Shanika Mcginnis RNPlacenta Previa or low lying qlrofgmn966/21/2025 8:00 PM Shanika Mcginnis RNSuspected placenta accreta or accreta orfncpvl182/21/2025 8:00 PM Shanika Mcginnis RNKnown kqjlnlppavmq324/21/2025 8:00 PM Shanika Mcginnis RN Abruption or active bleeding greater than bloody eugt341 8:00 PM Shanika Bearden RNStillbirth (IUFD) - Current jfsy451 8:00 PM Shanika Mcginnis RNUWMrfuaxqwjijdfnpx616/21/2025 8:00 PM Shanika Mcginnis RN Prolonged oxytocin (greater than 24 hours) 8:00 PM Shanika Mcginnis RNProlonged 2nd stage of pnbma363 8:00 PM Shanika Mcginnis RNDiagnosis of Yjiogbvdczpucu676/21/2025 8:00 PM Shanika Mcginnis RNDiagnosis of Tscsmcehqoeg250/21/2025 8:00 PM Shanika Mcginnis RNDiagnosis of HELLP Syndrome 8:00 PM Shanika Mcginnis RNPrevious hemorrhage0 04/27/2025 8:00 PM Shanika Mcginnis RN * Heart RateQuestionAnswerDate of AssessmentAuthorMonitorOther (Comment) 04/27/2025 7:00 AM Kaleigh Mora RNMultiple ?Yes04/27/2025 1:13 AM Kenia Barton RN * Uterine ActivityQuestionAnswerDate of AssessmentAuthorResting ToneSoft 04/27/2025 11:00 PM Shanika Mcginnis RNDurationna04/27/2025 11:00 PM Shanika Mcginnis RNCtx per 10 pvsc78606/28/2024 11:00 PM Shanika Mcginnis RNMonitorToco 04/27/2025 11:00 PM Shanika Mcginnis RNIntensityNot /21/2025 11:00 PM Shanika Mcginnis RN * DTRQuestionAnswerDate of AssessmentAuthorDeep Tendon Reflex Response+2 04/27/2025 7:00 PM Shanika Mcginnis RNClonusAbsent04/27/2025 7:00 PM Shanika Mcginnis RN * OB InterventionsQuestionAnswerDate of AssessmentAuthorOther (comment)pt very upset, does not want to be on monitor at this time04/27/2025 10:12 AM Kaleigh Mora, OGIsmwenkegfjAjqqtyq83/21/2025 10:42 PM Shanika Mcginnis, RNFetal MonitorUltrasound viesovwd74/21/2025 10:42 PM Shanika Mcginnis RNResponse Resident at qoilqud4304/27/2025 5:24 AM Kenia Barton RN * Pneumonia Vaccine Screen ages 19 to 64QuestionAnswerDate of AssessmentAuthor Are any of the following pneumococcal vaccine contraindications present? Patient refuses pneumonia hvqzhhq2904/27/2025 12:21 AM Kenia Barton RN Pneumococcal Vaccine [...] Rate Fetus BQuestionAnswerDate of AssessmentAuthorFHR Rhythm B Yhhrfjy3504/27/2025 11:00 PM Shanika Mcginnis RNAcceleration BAccelerations fntweto9304/27/2025 11:00 PM Shanika Mcginnis RNDeceleration BNone04/27/2025 11:00 PM Shanika Mcginnis RNCharacteristics MHpdfgs9704/27/2025 11:00 PM Shanika Bearden RNMonitor Fetus BExternal US04/27/2025 11:00 PM Shanika Mcginnis RNBaseline Variability BModerate (Between 6 and 25 BPM)04/27/2025 11:00 PM Shanika Bearden RNBaseline Rate X0539406/28/2024 11:00 PM Shanika Mcginnis RN Category BCategory I106/28/2024 11:00 PM Shanika Mcginnis RN * Vital SignsQuestionAnswerDate of LyvgdtrwkmDeylsdYE793/6004/27/2025 7:23 PM Shanika Mcginnis RNTemp98. 9:34 PM Shanika Mcginnis RNTemp srcOral 04/27/2025 9:34 PM Shanika Mcginnis EDRtopq4595/21/2025 7:23 PM Shanika Mcginnis ZFOyzf7729/21/2025 7:23 PM Shanika Mcginnis, TXXkE78673/21/2025 9:00 AM Kaleigh Mora RNBP cuff sizeAdult (25-34cm)04/27/2025 9:00 AM Kaleigh Mora RNO2 DeviceNone (Room air)04/27/2025 7:23 PM Shanika Mcginnis RNHeart Rate RlyazaKbkwhhf26/21/2025 3:26 PM Kaleigh Mora RNBP LocationLeft arm 04/27/2025 3:26 PM Kaleigh Mora RNBP CgquqcYlbzagxmu59/21/2025 3:26 PM Kaleigh Mora RNMAP (mmHg)80106/28/2024 3:26 PM Kaleigh Mora RNIs this an Orthostatic BP?No04/27/2025 3:26 PM Kaleigh Mora RNPatient Position Qufldgi6704/27/2025 3:26 PM Kaleigh Mora RN * Oxygen TherapyQuestionAnswerDate of AssessmentAuthorPulse Oximetry Type Continuous;Itgvxxglhz78/21/2025 9:00 AM Kaleigh Mora RN * Pain 2QuestionAnswerDate of AssessmentAuthorObserved RcbuyluoRfvx33/21/2025 3:26 PM Kaleigh Mora RN * Patient ObservationQuestionAnswerDate of AssessmentAuthorPatient Observations patient provided pillows and blankets to increase uecagab4904/27/2025 3:19 AM Kenia Barton RN * GastrointestinalQuestionAnswerDate of AssessmentAuthorGastrointestinal (WDL) WDL106/28/2024 7:00 PM Shanika Mcginnis RNGastrointestinal Additional McvsuuazixiBr80/21/2025 7:00 AM Kaleigh Mora RN * MusculoskeletalQuestionAnswerDate of AssessmentAuthorMusculoskeletal (WDL)WDL 04/27/2025 7:00 PM Shanika Mcginnis RN * GenitaliaQuestionAnswerDate of AssessmentAuthorFemale Genitalia Intact;Zyidrhvwy01/21/2025 7:00 PM Shanika Mcginnis RN * Anus/RectumQuestionAnswerDate of AssessmentAuthorAnus/Rectum (WDL)WDL 04/27/2025 7:00 PM Shanika Mcginnis RN * PsychosocialQuestionAnswerDate of AssessmentAuthorPatient Behaviors/Mood Klkuqrf1104/27/2025 7:00 PM Shanika Mcginnis, RNFamily/Visitor BehaviorsCalm 04/27/2025 7:00 PM Shanika Mcginnis RNNeeds CsfpdzmstJbzyjj72/21/2025 7:00 PM Shanika Mcginnis, RNPsychosocial (WDL)X106/28/2024 7:00 PM Shanika Mcginnis RN Person/Family XmmslmawgdNeonwc25/21/2025 7:00 PM Shanika Mcginnis RNAbility to Express FeelingsAble to xnxdldr3604/27/2025 7:00 PM Shanika Mcginnis RNAbility to Express NeedsAble to dotovmt5604/27/2025 7:00 PM Shanika Mcginnis RNAbility to Express ThoughtsAble to nfknofg4304/27/2025 7:00 PM Shanika Mcginnis RNTime of VtlzrwkywwBvnzzml24/21/2025 7:00 PM Shanika Mcginnis RNAbility to Understand HvggrwKwnkudxlhoo61/21/2025 7:00 PM Shanika Mcginnis RN * [place] Fall RiskQuestionAnswerDate of AssessmentAuthorHistory of Falling0 04/27/2025 7:00 PM Shanika Mcginnis RNSecondary Xallfkjkc8516/21/2025 7:00 PM Shanika Mcginnis RNAmbulatory Zboo87306/28/2024 7:00 PM Shanika Mcginnis RN Intravenous Therapy/Heparin/Saline Seaw237706/28/2024 7:00 PM Shanika Mcginnis RNGait/Eelozyvtqtjc507/21/2025 7:00 PM Shanika Mcginnis RNMental Status0 04/27/2025 7:00 PM Shanika Mcginnis, SARlgqm3953/21/2025 7:00 PM Shanika Mcginnis, KLEVER * Arvind ScaleQuestionAnswerDate of AssessmentAuthorSensory Perceptions4 04/27/2025 7:00 PM Shanika Mcginnis RNMoisture4106/28/2024 7:00 PM Shanika Mcginnis, QNOxkfkxub937/21/2025 7:00 PM Shanika Mcginnis RNMobility4106/28/2024 7:00 PM Shanika Mcginnis RNNutrition4106/28/2024 7:00 PM Shanika Mcginnis, KLEVER Friction and Qqmur38206/28/2024 7:00 PM Shanika Mcginnis RNBraden Scale Score21 04/27/2025 7:00 PM Shanika Mcginnis, KLEVER * Pain Intervention(s)AnswerDate of AssessmentAuthorMedication (See MAR) 04/27/2025 4:03 PM Jemima Zambrano RN * RespiratoryQuestionAnswerDate of AssessmentAuthorBilateral Breath SoundsClear 04/27/2025 7:00 PM Shanika Mcginnis RNR Breath ZeidbtIvrbx75/21/2025 7:00 PM Shanika Mcginnis RNL Breath XrxlfxPezbp24/21/2025 7:00 PM Shanika Mcginnis RN Respiratory SdqurilPnnylcu18/21/2025 7:00 PM Shanika Mcginnis RNChest AssessmentChest expansion /21/2025 7:00 PM Shanika Mcginnis RN CoughProductive;Fzyawypgta35/21/2025 7:00 PM Shanika Mcginnis RNRespiratory (WDL)X106/28/2024 7:00 PM Shanika Mcginnis RNRespiratory Additional Assessments No04/27/2025 6:00 AM Kenia Barton RN * Cough DescriptionQuestionAnswerDate of AssessmentAuthorSputum AmountUnable to qhhgio9604/27/2025 7:00 PM Shanika Mcginnis RNSputum SpzqgZijfzj56/21/2025 7:00 PM Shanika Mcginnis RNSputum RmzznzetchlOdqmv97/21/2025 7:00 PM Shanika Mcginnis RN * Values/BeliefsQuestionAnswerDate of AssessmentAuthorCultural Requests During Blthzbcudngaypcqitm05/21/2025 12:27 AM Kenia Barton RNSpiritual Requests During Quykrvzoadatilcgjyj49/21/2025 12:27 AM Kenia Barton RN * GenitourinaryQuestionAnswerDate of GvdocexbkcIagwdkDiebw20813/21/2025 7:00 AM Kaleigh Mora RNGenitourinary (WDL)WDL106/28/2024 7:00 PM Shanika Mcginnis RN * NeurologicalQuestionAnswerDate of AssessmentAuthorNeuro ([facility])WD06/28/2024 7:00 PM Shanika Mcginnis RN * Abuse Indicator ScreeningQuestionAnswerDate of AssessmentAuthorSafe in HomeYes 04/27/2025 12:27 AM Kenia Barton RNDo you feel safe in your relationship(s)?Yes04/27/2025 12:27 AM Kenia Barton RNAre you in immediate danger?No04/27/2025 12:27 AM Kenia Barton RN * Safe EnvironmentQuestionAnswerDate of AssessmentAuthorHourly RoundingYes 04/27/2025 11:00 PM Shanika Mcginnis RNArm Bands OnID04/27/2025 7:00 PM Shanika Bearden RNCall Perez Within XyugcSng60/21/2025 7:00 PM Shanika Mcginnis RNOverbed Table Within CgtpbWbu42/21/2025 7:00 PM Shanika Mcginnis RNBed In Lowest OizsoftwUcw78/21/2025 7:00 PM Shanika Mcginnis RNBed Wheels LockedYes 04/27/2025 7:00 PM Shanika Mcginnis RNSide Rails/Bed Safety 7:00 PM Shanika Mcginnis RNNonSkid FootwearOff;Patient in bed04/27/2025 7:00 PM Shanika Bearden RNBed/Chair Alarm OnOther (comment)04/27/2025 7:00 PM Shanika Mcginnis RN * Hygiene and AssistanceQuestionAnswerDate of AssessmentAuthorHygienePeri care;Linen znoytii0804/27/2025 5:10 AM Kenia Barton RN * PrecautionsQuestionAnswerDate of SvvxmhunlnRnyxqxNgwsnyrslycYuyp77/21/2025 7:00 PM Shanika Mcginnis RN * Provider CommunicationQuestionAnswerDate of AssessmentAuthorProvider Role Vvvcguyx01/21/2025 8:17 PM Shanika Mcginnis RNProvileon NameDr [facility] 04/27/2025 8:17 PM Shanika Mcginnis RNMethod of BfwftjdnodptaMchq59/21/2025 8:17 PM Shanika Mcginnis RNResponseEn route04/27/2025 8:17 [...] * RN: Observer/Environment EvaluationQuestionAnswerDate of AssessmentAuthor ObserverNot npepttunw59/21/2025 7:00 PM Shanika Mcginnis RN * Blood Specimen Collection StatusQuestionAnswerDate of AssessmentAuthorBlood Specimen LcgeevgaeiEpi70/21/2025 6:06 AM Megan Carmona, * Pain AssessmentQuestionAnswerDate of AssessmentAuthorPain LocationAbdomen 04/27/2025 5:00 AM Kenia Barton RNPain WyxmgscdleoMrxha52/21/2025 5:00 AM Kenia Barton RNPain LamwcxnhogsHputnftn43/21/2025 3:26 PM Kaleigh Mora RNPain DurationConstant/gbbqebxurn34/21/2025 3:26 PM Kaleigh Byers RNPatient's Stated Acceptable Pain LevelNo pain04/27/2025 5:00 AM Kenia Barton RNPain AssessmentNo/denies pain04/27/2025 10:00 PM Shanika Mcginnis RNPain Rmspf27106/28/2024 10:00 PM Shanika Mcginnis RN * NutritionQuestionAnswerDate of AssessmentAuthorCurrent Diet TypeOB Regular Bgqcxtp8104/27/2025 7:00 PM Shanika Mcginnis, CYQefucguiNcdk34/21/2025 7:00 PM Shanika Mcginnis RNRoom ServiceAppropriate for room dvxibvz7704/27/2025 7:00 PM Shanika Mcginnis RN * IntegumentaryQuestionAnswerDate of AssessmentAuthorIntegumentary (WDL)WDL 04/27/2025 7:00 PM Shanika Mcginnis RN * Fall Risk ScaleQuestionAnswerDate of AssessmentAuthorFall Risk ScaleMorse Fall Risk Scale04/27/2025 7:00 PM Shanika Mcginnis RN * Tattoos/PiercingsQuestionAnswerDate of AssessmentAuthorDoes patient have tattoos?Yes04/27/2025 7:00 PM Shanika Mcginnis RN * [place] Suicide BehaviorQuestionAnswerDate of AssessmentAuthor6. Have you ever [...] the past 7 days?No04/27/2025 12:26 AM Kenia Braton RN15 years old or less and ?No04/27/2025 [...] 04/27/2025 8:17 PM Shanika Mcginnis RN * [place] Suicide Risk LevelAnswerDate of AssessmentAuthorNot at Suicide Risk 04/27/2025 12:21 AM Kenia Barton RN * ADL/Functional/CognitiveQuestionAnswerDate of AssessmentAuthorPatient's Vision Adequate to Safely Complete Daily UtexqgttmnAc88/21/2025 1:17 AM Kenia Rankin RNPatidick's Judgement Adequate to Safely Complete Daily GpztmltqdkQzu61/21/2025 1:17 AM Kenia Barton RNHearing - Right Ear Wotuirnrdz08/21/2025 1:17 AM Kenia Barton RNHearing - Left Ear Lqrsywnokj44/21/2025 1:17 AM Kenia Barton RNAre you deaf [...] * Crib/Car Seat AvailabilityQuestionAnswerDate of AssessmentAuthorCar Seat HfkgihrvwMvq50/21/2025 12:30 AM Kenia Barton RNCrib Available at Home for BlaugtXle03/21/2025 12:30 AM Kenia Barton RN * ActivityQuestionAnswerDate of AssessmentAuthorActivity PerformedResting in bed 04/27/2025 7:00 AM Kaleigh Mora RNActivity ResponseTolerated well 04/27/2025 7:00 AM Kaleigh Mora RNRange of MotionActive;All extremities 04/27/2025 7:00 AM Kaleigh Mora RNToileting AssistanceAmbulate to vkziimto24/21/2025 7:00 AM Kaleigh Mora RNRepositionedTurns self 04/27/2025 7:00 AM Kaleigh Mora RNTransport YxlwmkGnvsmntsxf70/21/2025 7:00 AM Kaleigh Mora RNBed PositionSelf ghekitylt23/21/2025 7:00 AM Kaleigh Byers RN * Uterine ActivityQuestionAnswerDate of AssessmentAuthorResting ToneSoft 04/27/2025 11:00 PM Shanika Mcginnis RNDurationna04/27/2025 11:00 PM Shanika Mcginnis RNCtx per 10 aajh51406/28/2024 11:00 PM Shanika Mcginnis RNMonitorToco 04/27/2025 11:00 PM Shanika Mcginnis RNIntensityNot xufqnevvdz73/21/2025 11:00 PM Shanika Mcginnis RN * Vital SignsQuestionAnswerDate of XhrelkbjcdZfjukkSM147/6004/27/2025 7:23 PM Shanika Mcginnis RNTemp98. 9:34 PM Shanika Mcginnis RNTemp srcOral 04/27/2025 9:34 PM Shanika Mcginnis, ETJmktj3275/21/2025 7:23 PM Shanika Mcgninis UFGpzn0075/21/2025 7:23 PM Shanika Mcginnis VCJwO54485/21/2025 9:00 AM Kaleigh Mora RNHeart Rate GjlyskUgrwkfd89/21/2025 3:26 PM Kaleigh Mora RNBP LocationLeft arm04/27/2025 3:26 PM Kaleigh Mora RNBP Method Mqcyrcvjw61/21/2025 3:26 PM Kaleigh Mora RNMAP (mmHg)80106/28/2024 3:26 PM Kaleigh Mora RNIs this an Orthostatic BP?No04/27/2025 3:26 PM Kaleigh Mora RNPatient KtszzctiRcdfbuz76/21/2025 3:26 PM Kaleigh Mora RN * Safe EnvironmentQuestionAnswerDate of AssessmentAuthorCall Perez Within Reach Yes04/27/2025 7:00 PM Shanika Mcginnis RNBed In Lowest NdnqvhtoUzw97/21/2025 7:00 PM Shanika Mcginnis RNBed Wheels HeamzqKyf69/21/2025 7:00 PM Shanika Mcginnis RN * ADL/Functional/CognitiveQuestionAnswerDate of AssessmentAuthorPjovanny's Vision Adequate to Safely Complete Daily TagxeyldhzMk84/21/2025 1:17 AM Kenia Rankin RNPatient's Judgement Adequate to Safely Complete Daily WnpeakgsfhDey45/21/2025 1:17 AM Kenia Barton RNHearing - Right Ear Korodbfdis56/21/2025 1:17 AM Kenia Barton RNHearing - Left Ear Vcwvcwzjrb47/21/2025 1:17 AM Kenia Barton RNAre you deaf [...] PM Shanika Mcginnis RN * ActivityQuestionAnswerEntry DateAuthorTransport DgmpccCygvmvesrz53/21/2025 7:00 AM Kaleigh Mora RN * Vital SignsQuestionAnswerEntry HcmkVtlkgbTD762/6004/27/2025 7:23 PM Shanika Mcginnis RNTemp98. 9:34 PM Shanika Mcginnis RNTemp bzfNyud1004/27/2025 9:34 PM Shanika Mcginnis ZOPtxzf0600/21/2025 7:23 PM Shanika Mcginnis TVLlrk86 04/27/2025 7:23 PM Shanika Mcginnis WSQnV52263/21/2025 9:00 AM Kaleigh Mora RNBP cuff sizeAdult (25-34cm)04/27/2025 9:00 AM Kaleigh Mora RN O2 DeviceNone (Room air)04/27/2025 7:23 PM Shanika Mcginnis RNHeart Rate DusbucCvsgdcl05/21/2025 3:26 PM Kaleigh Mora RNBP LocationLeft arm 04/27/2025 3:26 PM Kaleigh Mora RNBP QpfenkHoocnuxnp34/21/2025 3:26 PM Kaleigh Mora RNMAP (mmHg)80106/28/2024 3:26 PM Kaleigh Mora RNIs this an Orthostatic BP?No04/27/2025 3:26 PM Kaleigh Mora RNPatient Position Xphqzre3104/27/2025 3:26 PM Kaleigh Mora RN * Oxygen TherapyQuestionAnswerEntry DateAuthorPulse Oximetry Type Continuous;Vnusewtotv35/21/2025 9:00 AM Kaleigh Mora RN * Pain 2QuestionAnswerEntry DateAuthorObserved YdpjmofuChah98/21/2025 3:26 PM Kaleigh Mora RN * GastrointestinalQuestionAnswerEntry DateAuthorGastrointestinal (WDL)WDL 04/27/2025 7:00 PM Shanika Mcginnis RNGastrointestinal Additional Assessments No04/27/2025 7:00 AM Kaleigh Mora RN * MusculoskeletalQuestionAnswerEntry DateAuthorMusculoskeletal (WDL)WDL 04/27/2025 7:00 PM Shanika Mcginnis RN * GenitaliaQuestionAnswerEntry DateAuthorFemale GenitaliaIntact;Discharge 04/27/2025 7:00 PM Shanika Mcginnis RN * Anus/RectumQuestionAnswerEntry DateAuthorAnus/Rectum (WDL)WDL106/28/2024 7:00 PM Shanika Mcginnis RN * PsychosocialQuestionAnswerEntry DateAuthorPatient Behaviors/MoodAnxious 04/27/2025 7:00 PM Shanika Mcginnis RNFamily/Visitor IedmecvryBsrh79/21/2025 7:00 PM Shanika Mcginnis RNNeeds WjdjvnunpIxkyro29/21/2025 7:00 PM Shanika Mcginnis RNPsychosocial (WDL)X106/28/2024 7:00 PM Shanika Mcginnis RN Person/Family RwvftsnfrjHfvkgw50/21/2025 7:00 PM Shanika Mcginnis RNAbilyash to Express FeelingsAble to fhcgjxz9204/27/2025 7:00 PM Shanika Mcginnis RNAbility to Express NeedsAble to edvhdgw0604/27/2025 7:00 PM Shanika Mcginnis RNAbility to Express ThoughtsAble to zkvippr3004/27/2025 7:00 PM Shanika Mcginnis RNTime of BxbblaegutGcaohaq24/21/2025 7:00 PM ESTLong, Shanika, RNAbility to Understand WlkdvzJnaxwhytjxr55/21/2025 7:00 PM Shanika cMginnis RN * Arvind ScaleQuestionAnswerEntry DateAuthorSensory Mokjssbzrlo847/21/2025 7:00 PM Shanika Mcginnis, IOUlseingd990/21/2025 7:00 PM Shanika Mcginnis, RNActivity2 04/27/2025 7:00 PM Shanika Mcginnis, NFAlmoljoh960/21/2025 7:00 PM Shanika Mcginnis, WNBnwulrtuz527/21/2025 7:00 PM Shanika Mcginnis, RNFriction and Shear3 04/27/2025 7:00 PM Shanika Mcginnis RNBraden Scale Ynjhn774904/27/2025 7:00 PM Shanika Mcginnis RN * Pain Intervention(s)AnswerEntry DateAuthorMedication (See MAR)04/27/2025 4:03 PM Jemima Zambrano RN * RespiratoryQuestionAnswerEntry DateAuthorBilateral Breath SoundsClear 04/27/2025 7:00 PM Shanika Mcginnis RNR Breath JragjpCudqz28/21/2025 7:00 PM Shanika Mcginnis RNL Breath YspspgEjyla67/21/2025 7:00 PM Shanika Mcginnis RN Respiratory SvqxgyfZsiffwd31/21/2025 7:00 PM Shanika Mcginnis RNChest AssessmentChest expansion ticrkhkznxs76/21/2025 7:00 PM Shanika Mcginnis RN CoughProductive;Cmdksppryg33/21/2025 7:00 PM Shanika Mcginnis RNRespiratory (WDL)X106/28/2024 7:00 PM Shanika Mcginnis RNRespiratory Additional Assessments No04/27/2025 6:00 AM Kenia Barton RN * Cough DescriptionQuestionAnswerEntry DateAuthorSputum AmountUnable to assess 04/27/2025 7:00 PM Shanika Mcginnis RNSputum MfpvkLxufbx10/21/2025 7:00 PM Shanika Bearden RNSputum KcfltwzyhrbHrkpe64/21/2025 7:00 PM Shanika Mcginnis RN * GenitourinaryQuestionAnswerEntry NimeSixkyhEkvpp92186/21/2025 7:00 AM Kaleigh Mora RNGenitourinary (WDL)WD06/28/2024 7:00 PM Shanika Mcginnis RN * NeurologicalQuestionAnswerEntry DateAuthorNeuro (WDL)[facility]06/28/2024 7:00 PM Shanika Bearden RN * Provider CommunicationQuestionAnswerEntry DateAuthorProvider RoleResident 04/27/2025 8:17 PM Shanika Mcginnis RNProvider NameDr Bjegxahi97/21/2025 8:17 PM Shanika Mcginnis RNMethod of DecrszlryhibfOnqa06/21/2025 8:17 PM Shanika Mcginnis RNResponseEn route04/27/2025 8:17 PM Shanika Mcginnis RN * RN: Observer/Environment EvaluationQuestionAnswerEntry DateAuthorObserverNot lfrdlibva11/21/2025 7:00 PM Shanika Mcginnis RN * Pain AssessmentQuestionAnswerEntry DateAuthorPain WoalwjyuCljsujb97/21/2025 5:00 AM Kenia Barton, Misael VxefelsofmmCeiwp51/21/2025 5:00 AM Kenia Rankin RNPain CgemacyqdhtDwszlsou50/21/2025 3:26 PM Kaleigh Mora RNPain DurationConstant/qsqxbfjwya13/21/2025 3:26 PM Kaleigh Mora RNPatient's Stated Acceptable Pain LevelNo pain04/27/2025 5:00 AM Kenia Rankin RNPain AssessmentNo/denies pain04/27/2025 10:00 PM Shanika Bearden RNPain Zcxym42706/28/2024 10:00 PM Shanika Mcginnis RN * IntegumentaryQuestionAnswerEntry DateAuthorIntegumentary (WDL)[facility]06/28/2024 7:00 PM Shanika Mcginnis RN * Tattoos/PiercingsQuestionAnswerEntry DateAuthorDoes patient have tattoos?Yes 04/27/2025 7:00 PM Shanika Mcginnis RN documented in this encounter Medications at Time of Discharge MedicationSigDispense QuantityRefillsLast FilledStart DateEnd Date biotin (BIOTIN) 5 mg capsule Indications:Hair lossTake [...] MOUTH DAILY NEEDED FOR CONSTIPATION 30 capsule famotidine (PEPCID) 20 mg tablet Indications:Heart burnTAKE 1 TABLET BY MOUTH EVERY MORNING 30 tablet magnesium oxide (MAGOX) 400 mg tablet Take 1 tablet (400 mg total) by mouth before bedtime. 90 tablet 183-sazt-lyyxbt 6-dha 27 mg iron-1 mg -205 mg capsule Indications: care in third trimesterTake 1 each by mouth in the morning. 90 capsule valACYclovir (VALTREX) 1000 mg tablet Indications:HSV infectionTake 1 tablet (1,000 mg total) by mouth in the morning and 1 tablet (1,000 mg total) before bedtime. 30 tablet amoxicillin (AMOXIL) 250 mg capsule Take 1 capsule (250 mg total) by mouth every 8 (eight) hours for 18 doses. 18 capsule Bacillus coagulans (BACID WITH LACTOSPORE) 1 billion cell capsule Take 1 capsule by mouth in the morning. 90 capsule 10/29/2024 erythromycin (E-MYCIN) 250 mg tablet,delayed release (DR/EC) Indications: premature rupture of membranes in third trimester, unspecified duration to onset of laborTake 1 tablet (250 mg total) by mouth every 8 (eight) hours for 18 doses. 18 tablet ABMX-wmrmeubl-khplwcawxqb xt 100-100-225 mg capsule Take 1 capsule by mouth in the morning. 90 capsule omega-3 acid ethyl esters (LOVAZA) 1 gram capsule TAKE 2 CAPSULES BY MOUTH EVERY MORNING AND TAKE TWO CAPSULES BY MOUTH AT BEDTIME 120 capsule 07/11/2024 omeprazole (PriLOSEC) 40 mg capsule Indications:Heart burnTake 1 capsule (40 mg total) by mouth in the morning. 30 capsule 604documented as of this encounter Progress Notes * [...] ordered Dr Nesbitt updated Gaby Truong MD Cane Flume Feeding Machine Operator Resident, PGY-4 Cosigned by Mary Nesbitt MD [...] 28w3d who presents as a Transport from [facility] with concern for possible PPROM. Patient states [...] noted. She denies anyrecent intercourse While at [facility], an exam was performed and an amniosure sent which was positive. 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 They have a jomb-laoj-xff daughter that has a mild form (Clemens [...] viral load undetected History of heroin abuse ([facility]) 03/17/2024 03/17/2024: Patient states she has been [...] Interpersonal Safety: Low Risk (03/18/2025) Received from [facility] Intimate Partner Violence Safe in relationship? [...] 120bpm, moderate variability, present acceleration, absent decelerations Delevan: none Labs No results found for this [...] 28w3d who presents as a transport from [facility] for PPROM in setting of di/di twin [...] GBS ordered - MFM consulted, appreciate recommendations. [facility] US ordered - Baby B FHT reactive and reassuring 2. Possible URI - RPP ordered 3. History of Hep C - Hep C quant ordered - AST/ALT wnl 4. Routine antepartum care - [facility] US 04/14: Baby A: multiple anomalies. Baby B: EFW 1059g (63%), AC 23cm (62%), DVP 5.5cm,ceph, post pl - NPO - cEFM Pt discussed with Dr. 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 They have a stvk-xteq-yeb daughter that has a mild form (Clemens [...] viral load undetected History of heroin abuse ([facility]) 03/17/2024 03/17/2024: Patient states she [...] the premature infant, as well asthe associated intermediate frame tender complications of each. They are aware that the may need antibiotics, and other medical consults as deemed necessary while in the NICU. NICU family participation, Levon Doc/HAMMER ADJUSTER daily rounding procedures, the availability of the mental health social worker and the availability of [facility] were all explained. The NICU [...] Delivery: 07/16/25 Presented as a Transport from [facility] with concern for possible PPROM. Patient states shefirst started noting possible leakage yesterday morning. While at [facility], an exam was performed and an amniosure sent which was positive. She wasstarted on Magnesium sulfate for neuroprotection, ampicillin and corticosteroids then transferred to [facility] for further evaluation and management. This morning she denies any fevers/chills, nausea/vomiting or diarrhea. She reports movement of Baby B with no contractions or vaginal bleeding noted. She denies any recent intercourse Complications: s/p multifetal reduction of Twin A at [facility] at 23w5d on 03/24/25 - genetic amniocentesis [...] family also underwent a consultation at the [facility] therapy Center Rh negative sp rhogam 03/25/25 Advanced maternal age with low risk cell free DNA testing. Both parents carrier for galactosemia. One of the daughters does have galactosemia trait and has required nutritional support. Patient was established with [facility] metabolic disorder howeverthe physician has retired. [...] MOUTH EVERY MORNING 30 tablet 6 04/26/2025 244-oeic-hlxvul 6-dha 27 mg iron-1 mg -205 mg [...] remove for 1 week. 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 They have a fjfz-qvtg-lvh daughter that has a mild form (Clemens [...] viral load undetected History of heroin abuse ([facility]) 03/17/2024 03/17/2024: Patient states she has been [...] 05/03/2016 Performed by Kim Bhatia MD at [facility] SURGERY WISDOM TOOTH EXTRACTION MEDS Current [...] intravenous Continuous PRN Gaby Truong MD PNV,calcium 85-hucr-yjmnv acid ( PLUS) 27 mg iron- 1 [...] GTT: No results found for: GLUF , NYKRPVV1AS , SYQCVVU0DS , QWJMXTF0AY Physical Exam Vitals and nursing note reviewed. [...] s/p multifetal reduction of Twin A at [facility] at 23w5d on 03/24/25 Reviewed with the [...] Charlene Lees MD, FACOG (she/hers) Maternal- Medicine [facility] [address] [place] [address] This document was created with [employer] technology. Though I make every effort to review the dictation as it is transcribed, on occasion the spoken word can be misinterpreted by the technology leading to inappropriate words, phrases, or sentences. This note is addressed to the requesting provider as a consultation for clinical guidance. Specificmedical abbreviations are occasionally used and those are generally approved by the [place]?Board of?Obstetrics and?Gynecology?as well as?[place]???s abbreviations. The above plan of care was based solely on the diagnoses for which a consultation was requested. ?More frequent testing may be indicated based on her other medical/obstetrical conditions. The management of other or medical conditions is beyond the scope of requested consultation and will c ontinue to be followed by the primary manager global or primary care provider. Note to patient: [...] AM EST Patient expressing desire to leave [place] due to childcare and social issues at [...] mother. Patient expressed interest in going to [facility] with her kids. RN called social work, who said that unless there's a sibling admitted to the hospital, children are not allowed to stay at [facility]. Social work to come speak with patient. [...] Description: INTERVENTIONS: 1. Encourage patient or legal pharmaceutical sales representative to report early pain and ask [...] per policy 9. Teach patient or legal pharmaceutical sales representative interventions for comforting Outcome: Progressing Note: [...] at the bedside 7. Instruct patient/ patient pharmaceutical sales representative about use of safety devices 8. Include patient/ patient pharmaceutical sales representative in decisions related to safety Outcome: [...] hygiene technique. 7. Identify and instruct patient/patient pharmaceutical sales representative in use of appropriate isolation precautionsfor identified infection/symptoms. 8. Provide and discuss with patient/patient pharmaceutical sales representative on educational MDRO sheet. 9. Encourage and monitor nutritional status daily and consult mental health social worker if indicated. 10. Implement neutropenic guidelines as needed. Outcome: Progressing Note: Evaluation of progress towards goal: Patient is free from signs and symptoms of infection. Problem: Knowledge Deficit Goal: Patient/patient pharmaceutical sales representative demonstrates understanding of disease process, treatment [...] on patient's door 9. Provide patient/ patient pharmaceutical sales representative with isolation education. Outcome: Progressing Note: Evaluation of progress towards goal: Patient is free from signs and symptoms of infection. Problem: Moderate - High Risk Fall Score Description: Gus Wade Score of =/> 25 or indicated by [facility] Assessment Goal: Patient should be free from fall Description: Interventions: 1. [place] to environment 2. Hourly rounds addressing the [...] non-skid footwear 11. Teach patient and patient pharmaceutical sales representative to maintain environment for safety and [...] (cane, walker) within reach 19. Request patient pharmaceutical sales representative bring adaptive equipment/mobility aids from home or obtain and provide as needed 20. Consult pharmacy regarding effects of med's affecting mobility, cognition, and alternatives 21. Obtain physician order for PT if risk factors associated with mobility are present 22. Obtain physician order for OT as appropriate 23. Utilize diversional activities 24. Educate patient and patient pharmaceutical sales representative how to maintain a safe environment during visitationtimes (notify nurse prior to leaving bedside) 25. Consider appropriateness of medical or non-front office medical assistant 26. Set up voiding schedule as appropriate [...] abruption. AMA paperwork signed. Luis Kuhn MD Cane Flume Feeding Machine Operator Resident, PGY-4 * Discharge Planning Note - ALLA Conway - 04/27/2025 1:35 PM EST DISCHARGE PLANNING NOTE SOCIAL WORK NOTE SW consult for 34 y.o. at 28w4d gestation. Chart reviewed and case discussed with KLEVER Farris. Twin with reduction of twin A at 23w. Transfer from [facility] and found to have PROM of demised [...] there with her children until delivery. Per customer account administrator client liaison, pt could stay at [facility] with her children if there was another supportive adult present at all times. SW met with patient at bedside, introduced self and explained role. Discussed pt situation and options. Pt states [facility] is not an option because she does not have a supportive adult that is available to stay with her. Pt states FOB is helpful with her 1 y.o. and 7 y.o. and they typically stay with him 2 days per week. He does work 5 days / week, which would make it difficult for him to provide realtime reporter care while pt is admitted. Pt utilizes [...] to follow. * Plan of Care - Kaleigh Dexter RN - 04/27/2025 9:38 AM EST Problem: Pain Goal: Patient goal is pain score less than 4, able to rest, and participant in treatment plan as appropriate Description: INTERVENTIONS: 1. Encourage patient or legal pharmaceutical sales representative to report early pain and ask [...] per policy 9. Teach patient or legal pharmaceutical sales representative interventions for comforting Outcome: Progressing Note: [...] at the bedside 7. Instruct patient/ patient pharmaceutical sales representative about use of safety devices 8. Include patient/ patient pharmaceutical sales representative in decisions related to safety Outcome: [...] hygiene technique. 7. Identify and instruct patient/patient pharmaceutical sales representative in use of appropriate isolation precautionsfor identified infection/symptoms. 8. Provide and discuss with patient/patient pharmaceutical sales representative on educational MDRO sheet. 9. Encourage and monitor nutritional status daily and consult mental health social worker if indicated. 10. Implement neutropenic guidelines as needed. Outcome: Progressing Note: Evaluation of progress towards goal: Patient receiving antibiotics to treat any possible infection. No fever or other signs of infection at this time. Problem: Knowledge Deficit Goal: Patient/patient pharmaceutical sales representative demonstrates understanding of disease process, treatment [...] on patient's door 9. Provide patient/ patient pharmaceutical sales representative with isolation education. Outcome: Progressing Note: Evaluation of progress towards goal: Will use standard protocols to prevent transmission of infection. Problem: Moderate - High Risk Fall Score Description: Gus Wade Score of =/> 25 or indicated by [facility] Assessment Goal: Patient should be free from fall Description: Interventions: 1. [place] to environment 2. Hourly rounds addressing the [...] non-skid footwear 11. Teach patient and patient pharmaceutical sales representative to maintain environment for safety and [...] (cane, walker) within reach 19. Request patient pharmaceutical sales representative bring adaptive equipment/mobility aids from home or obtain and provide as needed 20. Consult pharmacy regarding effects of med's affecting mobility, cognition, and alternatives 21. Obtain physician order for PT if risk factors associated with mobility are present 22. Obtain physician order for OT as appropriate 23. Utilize diversional activities 24. Educate patient and patient pharmaceutical sales representative how to maintain a safe environment during visitationtimes (notify nurse prior to leaving bedside) 25. Consider appropriateness of medical or non-front office medical assistant 26. Set up voiding schedule as appropriate [...] Description: INTERVENTIONS: 1. Encourage patient or legal pharmaceutical sales representative to report early pain and ask [...] per policy 9. Teach patient or legal pharmaceutical sales representative interventions for comforting Outcome: Progressing Note: [...] at the bedside 7. Instruct patient/ patient pharmaceutical sales representative about use of safety devices 8. Include patient/ patient pharmaceutical sales representative in decisions related to safety Outcome: [...] hygiene technique. 7. Identify and instruct patient/patient pharmaceutical sales representative in use of appropriate isolation precautionsfor identified infection/symptoms. 8. Provide and discuss with patient/patient pharmaceutical sales representative on educational MDRO sheet. 9. Encourage and monitor nutritional status daily and consult mental health social worker if indicated. 10. Implement neutropenic guidelines as needed. Outcome: Progressing Note: Evaluation of progress towards goal: Handwashing enforced to prevent infection. Problem: Knowledge Deficit Goal: Patient/patient pharmaceutical sales representative demonstrates understanding of disease process, treatment [...] on patient's door 9. Provide patient/ patient pharmaceutical sales representative with isolation education. Outcome: Progressing Note: Evaluation of progress towards goal: infection prevention Additional Comments: documented in this encounter Plan of Treatment DateTypeDepartmentCare Team (Latest Contact Info)Hjyejcxbpcq03/08/2026 8:[address] [facility] Imaging [address] [place] [phone] 05/15/2025 11:00 AM ESTOffice Visit Maternal- Medicine at [facility] [address] [place] [phone] Charlene Lees MD [address] [facility] [place] [address] 11/04/2025 4:00 PM EDTOffice Visit [facility] [address] [place] [phone] Rebecca Rizvi APRNLOVERING [facility] [address] [place] [address], [place] [phone] documented as of this encounter Procedures Procedure NamePriorityDate/TimeAssociated DiagnosisCommentsURINALYSISRoutine 04/27/2025 7:56 AM EST LACTATE W/ VAOTQJXKGU73/21/2025 6:25 AM EST CBC WITH AUTO DHRYFKAIULCTLAVW95/21/2025 6:25 AM EST BLOOD OFNGGYDAOZA19/21/2025 6:25 AM EST BLOOD HWWYYJUJXCA91/21/2025 6:25 AM EST COMPREHENSIVE METABOLIC ULZWBHQJP04/21/2025 6:25 AM EST EXTRA TUBES BLUE UQDSmdbkyz69/21/2025 6:24 AM EST EXTRA KVISCJxppjae86/21/2025 6:24 AM EST MOLECULAR VAGINITIS PANEL CMIHsocwsu09/21/2025 2:20 AM EST CHLAMYDIA/GC BY PCR NORBERTO JZVVDzmkwpx02/21/2025 2:20 AM EST RESP PATHOGENS PANEL/ROOX-GES-1Yiifben09/21/2025 2:20 AM EST STREP B QUWPAZCaaxmzl71/21/2025 2:20 AM EST RUPTURE OF MEMBRANE (ALL)Qcajtcg4004/27/2025 1:43 AM EST HEPATITIS C VIRUS QUANTITATIVE BY NAATAdd-On04/27/2025 12:13 AM EST SYPHILIS TOTAL(UNKNOWN SYPHILIS STATUS)STAT106/28/2024 12:13 AM EST ANTIBODY FKVuujoso68/21/2025 12:13 AM EST CBC WITH AUTO HBXJHKJNVQHTWZJO96/21/2025 12:13 AM EST TYPE AND XUWJZLEUVI81/21/2025 12:13 AM EST COMPREHENSIVE METABOLIC JJVQFNNBZ65/21/2025 12:13 AM EST EXTRA TUBES PST ELSQwqepgf89/21/2025 12:08 AM EST EXTRA TUBES BLUE VBRTonrhid72/21/2025 12:08 AM EST EXTRA YXKJDEkecuea72/21/2025 12:08 AM EST documented in this encounter Results * (ABNORMAL) Urinalysis (04/27/2025 7:56 AM EST)ComponentValueRef RangeTest MethodAnalysis TimePerformed AtPathologist SignatureCOLORYellowYellow 04/27/2025 8:41 AM [facility] LABORATORYTURBIDITYClearClear 04/27/2025 8:41 AM [facility] LABORATORYSPECIFIC GRAVITY1.023 1.003 - 1.4032404/27/2025 8:41 AM [facility] LABORATORYNITRITE QwsjpihqEgdmcjsj83/21/2025 8:41 AM [facility] PH,URINE6.55.0 - 8.512 8:41 AM [facility] LEUKOCYTE FNMRIRKPMdrndqliHyrxistm74/21/2025 8:41 AM [facility] LABORATORYPROTEINTrace(A)Ukmefjwf43/21/2025 8:41 AM [facility] LABORATORYKETONES (URINE)10 mg/dL(A)Uhklmgkw75/21/2025 8:41 AM EST [facility]ORYUROBILINOGEN<1.1 eu/dL<1.1 eu/dL04/27/2025 8:41 AM [facility] LABORATORYBILIRUBIN (URINE)Negative Xwjqdhcb53/21/2025 8:41 AM [facility] LABORATORYBLOOD/HGB EedwijbfJkguphbs69/21/2025 8:41 AM [facility] MUCOUSPresent(A)None04/27/2025 8:41 AM [facility] R.B.CELLS10 - 512 8:41 AM [facility] SQUAMOUS DIBWEWXFSM67 - 8:41 AM [facility] LABORATORYW.B.CELLS10 - 512 8:41 AM [facility] LABORATORYGLUCOSE (URINE)FmiosepvFvnaioil79/21/2025 8:41 AM [facility] LABORATORYSpecimen (Source)Anatomical Location / LateralityCollection Method / VolumeCollection TimeReceived TimeUrineUrine / Vdnepxe3504/27/2025 7:56 AM EST04/27/2025 8:24 AM EST Narrative Authorizing ProviderResult TypeResult StatusTannicjenna Truong MDURINE ORDERABLES Final ResultPerforming OrganizationAddressCity/State/ZIP CodePhone Number [facility] [address] [place] [address], * Blood culture #2 (04/27/2025 6:25 AM EST)ComponentValueRef RangeTest Method Analysis TimePerformed AtPathologist SignatureCULTURE RESULTSNO GROWTH 5 DAYS 05/02/2025 10:01 AM [facility] LABORATORYSpecimen (Source) Anatomical Location / LateralityCollection Method / VolumeCollection Time Received TimeBloodVenous blood / UnknownVenipuncture / Ejltlnj1304/27/2025 6:25 AM EST04/27/2025 9:31 AM EST Narrative [facility] - 05/02/2025 10:01 AM EST Suboptimal volume of blood collected, Results may be affected. Authorizing ProviderResult TypeResult StatusSouth County HospitalICROBIOLOGY - GENERAL ORDERABLESFinal ResultPerforming OrganizationAddressCity/State/ZIP Code Phone Number [facility] [address] [place] [address], * Blood culture #1 (04/27/2025 6:25 AM EST)ComponentValueRef RangeTest Method Analysis TimePerformed AtPathologist SignatureCULTURE RESULTSNO GROWTH 5 DAYS 05/02/2025 10:01 AM [facility] LABORATORYSpecimen (Source) Anatomical Location / LateralityCollection Method / VolumeCollection Time Received TimeBloodVenous blood / UnknownVenipuncture / Nvnczhl0704/27/2025 6:25 AM EST04/27/2025 9:31 AM EST Narrative [facility] - 05/02/2025 10:01 AM EST Suboptimal volume of blood collected, Results may be affected. Authorizing ProviderResult TypeResult StatusTanSouth County HospitalROBIOLOGY - GENERAL ORDERABLESFinal ResultPerforming OrganizationAddressCity/State/ZIP Code Phone Number [facility] [address] [place] [address], [place] [phone] * Lactate w/ Reflex (04/27/2025 6:25 AM EST)ComponentValueRef RangeTest Method Analysis TimePerformed AtPathologist SignatureLACTATE W/REFLEX1.00.4 - 2.0 mmol/L106/28/2024 7:23 AM [facility] LABORATORYSpecimen (Source)Anatomical Location / LateralityCollection Method / VolumeCollection TimeReceived TimeBloodVenous blood / UnknownVenipuncture / Bltbnlf8304/27/2025 6:25 AM EST04/27/2025 6:41 AM EST Narrative [facility] - 04/27/2025 7:23 AM EST Result did not trigger repeat Lactate, re-order if needed. Authorizing ProviderResult TypeResult StatusTannicjenna HUNETR BLOOD ORDERABLESFinal ResultPerforming OrganizationAddressCity/State/ZIP CodePhone Number [facility] [address] [place] [address], * (ABNORMAL) Comprehensive metabolic panel (04/27/2025 6:25 AM EST)Component ValueRef RangeTest MethodAnalysis TimePerformed AtPathologist SignatureSODIUM 260392 - 146 mmol/L106/28/2024 7:18 AM [facility] POTASSIUM3.93.5 - 5.0 mmol/L106/28/2024 7:18 AM [facility] ARSPBXNBWIRRSUJKZB84429 - 109 mmol/L106/28/2024 7:18 AM [facility] LABORATORYCARBON EPYAYAX14(L)22 - 32 mmol/L106/28/2024 7:18 AM [facility] LABORATORYANION GAP85 - 15 mmol/L106/28/2024 7:18 AM [facility] LABORATORYBLOOD UREA EPJRMAQL71 - 23 mg/dL04/27/2025 7:18 AM [facility] LABORATORYCREATININE0.510.40 - 1.00 mg/dL 04/27/2025 7:18 AM [facility] LABORATORYComment:METHOD TRACEABLE TO IDMS NNVVCSAEAMLEOBR347(H)65 - 99 mg/dL04/27/2025 7:18 AM [facility] LABORATORYCALCIUM7.1(L)8.5 - 10.5 mg/dL04/27/2025 7:18 AM [facility] LABORATORYTOTAL PROTEIN6.06.0 - 8.0 g/dL 04/27/2025 7:18 AM [facility] LABORATORYALBUMIN3.23.2 - 5.3 g/dL04/27/2025 7:18 AM [facility] LABORATORYALKALINE ZOQELPYXMUZ1138 - 130 U/L106/28/2024 7:18 AM [facility] YGXKSDJVZXPFV80<=41 U/L106/28/2024 7:18 AM [facility] LABORATORYALT4<=31 U/L106/28/2024 7:18 AM [facility] LABORATORYBILIRUBIN,TOTAL0.2(L)0.3 - 1.2 mg/dL04/27/2025 7:18 AM [facility] LABORATORYEGFR Non-Race Dependent>90>=60 ml/min/1.73sq.m 04/27/2025 7:18 AM [facility] LABORATORYComment: Reported eGFR is based on the CKD-EPI 2020 equation that does not use a race coefficient. Specimen (Source)Anatomical Location / LateralityCollection Method / Volume Collection TimeReceived TimeBloodVenous blood / UnknownVenipuncture / Unknown 04/27/2025 6:25 AM EST04/27/2025 6:42 AM EST Narrative Authorizing ProviderResult TypeResult StatusTannice Dionne HUNTER BLOOD ORDERABLESFinal ResultPerforming OrganizationAddressCity/State/ZIP CodePhone Number [facility] [address] [place] [address], * (ABNORMAL) CBC auto differential (04/27/2025 6:25 AM EST)ComponentValueRef RangeTest MethodAnalysis TimePerformed AtPathologist NoogpsefrHJW52.1(H)4 - 11 10^9/L106/28/2024 6:52 AM [facility] LABORATORYRBC Count3.82 3.8 - 5.2 10^12/L106/28/2024 6:52 AM [facility] Xsoqizevqp52.3(L)11.7 - 15.5 g/dL04/27/2025 6:52 AM [facility] KSVHXGQCXNHwmqcpwjlq36.3(L)35 - 47 %04/27/2025 6:52 AM [facility] DANCGILTHPIIO4494 - 100 fL04/27/2025 6:52 AM [facility] BVEPNEXAUTKDH65.627 - 34 pg04/27/2025 6:52 AM [facility] UWUNVVNKNUHEWH32.932 - 36 g/dL04/27/2025 6:52 AM [facility] BEQTSVYERPFPF08.611.5 - 15 %04/27/2025 6:52 AM [facility] LABORATORYPlatelet Clvqm013006 - 450 10^9/L106/28/2024 6:52 AM [facility] LABORATORYMPV8.37 - 12 fL04/27/2025 6:52 AM [facility] LABORATORYNeutrophils %89.5%04/27/2025 6:52 AM [facility] LABORATORYLymphocytes %8.6%04/27/2025 6:52 AM [facility] LABORATORYMonocytes %1.8%04/27/2025 6:52 AM [facility] LABORATORYEosinophils %0.1%04/27/2025 6:52 AM [facility] LABORATORYBasophils %0.0%04/27/2025 6:52 AM [facility] LABORATORYNeutrophils Absolute (A)10.8(H)1.5 - 6.6 10^9/L 04/27/2025 6:52 AM [facility] LABORATORYLymphocytes Absolute 1.01.0 - 3.5 10^9/L106/28/2024 6:52 AM [facility] Monocytes Absolute0.20.0 - 0.9 10^9/L106/28/2024 6:52 AM [facility] LABORATORYEosinophils Absolute0.00.0 - 0.4 10^9/L106/28/2024 6:52 AM [facility] LABORATORYBasophils Absolute0.00.0 - 0.2 10^9/L 04/27/2025 6:52 AM [facility] LABORATORYDifferential Type AUTOMATED EEXKQIRTKMHF07/21/2025 6:52 AM [facility] LABORATORYSpecimen (Source)Anatomical Location / LateralityCollection Method / VolumeCollection TimeReceived TimeBloodVenous blood / UnknownVenipuncture / Dxtwrhk5704/27/2025 6:25 AM EST04/27/2025 6:42 AM EST Narrative Authorizing ProviderResult TypeResult StatusTansarwat Truong MDLAB BLOOD ORDERABLESFinal ResultPerforming OrganizationAddressCity/State/ZIP CodePhone Number [facility] [address] [place] [address], * Light Blue Top (04/27/2025 6:24 AM EST)ComponentValueRef RangeTest Method Analysis TimePerformed AtPathologist SignatureExtra TubeAuto Resulted 04/27/2025 8:01 AM [facility] LABORATORYSpecimen (Source) Anatomical Location / LateralityCollection Method / VolumeCollection Time Received TimeBloodVenous blood / Pmpndgp0704/27/2025 6:24 AM EST04/27/2025 6:42 AM EST Narrative Authorizing ProviderResult TypeResult StatusDavid A Cook [facility] BLOOD ORDERABLESFinal ResultPerforming OrganizationAddressCity/State/ZIP CodePhone Number [facility] [address] [place] [address], [place] [phone] * Strep B screen (04/27/2025 2:20 AM EST)ComponentValueRef RangeTest Method Analysis TimePerformed AtPathologist SignatureCULTURE RESULTSNEGATIVE FOR GROUP B STREPTOCOCCUS BY NUCLEIC ACID KIERKMANOFJWI18/22/2025 9:39 AM EST [facility]OR[facility]YSpecimen (Source)Anatomical Location / LateralityCollection Method / VolumeCollection TimeReceived TimeSwab (Vagina/Rectum)04/27/2025 2:20 AM EST04/27/2025 3:19 AM EST Narrative Authorizing ProviderResult TypeResult StatusTansarwat Truong MDMICROBIOLOGY - GENERAL ORDERABLESFinal ResultPerforming OrganizationAddressCity/State/ZIP Code Phone Number [facility] [address] [place] [address], [place] [phone] * Chlamydia/GC by PCR Norberto Swab (04/27/2025 2:20 AM EST)ComponentValueRef Range Test MethodAnalysis TimePerformed AtPathologist SignatureCHLAMYDIA DNA(PCR) TccxgjswBersgtxy18/22/2025 10:39 AM [facility] Comment:Chlamydia trachomatis not detected by nucleic acid amplification. This does not exclude the possibility of infection because results are dependent on adequate specimen collection.GONORRHOEAE DNA(PCR)UlmctqcrSbncuvzk27/22/2025 10:39 AM [facility] LABORATORYComment:Neisseria gonorrhoeae not detected by nucleic acid amplification. This does not exclude the possibil ity of infection because results are dependent on adequate specimen collection.Specimen (Source)Anatomical Location / LateralityCollection Method / VolumeCollection TimeReceived TimeSwabEndocervical structure / Unknown 04/27/2025 2:20 AM EST04/27/2025 3:19 AM EST Narrative Authorizing ProviderResult TypeResult StatusTannice FogRochester General HospitalICROBIOLOGY - GENERAL ORDERABLESFinal ResultPerforming OrganizationAddressCity/State/ZIP Code Phone Number [facility] [address] [place] [address], * Molecular Vaginitis Panel PCR (04/27/2025 2:20 AM EST)ComponentValueRef Range Test MethodAnalysis TimePerformed AtPathologist SignatureBacterial Vaginosis DNANot DetectedNot Jmdcwlum69/21/2025 4:27 AM [facility] LABORATORYComment:Indicator DNA target(s) related to bacterial vaginosis organisms, which include: Atopobium vaginae,Atopobium novel species, Megasphaera-1, and Bacterial Vaginosis Associated Bacteria-2 (BVAB-2), is/are Not Detected.Abena species group DNANot DetectedNot Nlkyeogi44/21/2025 4:27 AM [facility] LABORATORYComment:Abena group (C. albicans and/or C. tropicalis and/or C. parapsilosis and/or C. dubliniensis) target DNA is Not Detected.Abena glabrata/krusei DNANot DetectedNot Dacnzpiz44/21/2025 4:27 AM [facility] LABORATORYComment:Abena glabrata and/or Abena krusei target DNA is Not Detected.Trichomonas VaginalisNot DetectedNot Asckexvg38/21/2025 4:27 AM [facility] LABORATORYComment: Trichomonas vaginalis target DNA is Not Detected.Specimen (Source)Anatomical Location / LateralityCollection Method / VolumeCollection TimeReceived Time SwabVaginal structure / Lpogjmd3104/27/2025 2:20 AM EST04/27/2025 3:19 AM EST Narrative [facility] - 04/27/2025 4:27 AM EST Assay methodology is nucleic acid amplification by real-time PCR, performed on [employer] System. Authorizing ProviderResult TypeResult StatusTannice [facility] MDMICROBIOLOGY - GENERAL ORDERABLESFinal ResultPerforming OrganizationAddressCity/State/ZIP Code Phone Number [facility] [address] [place] [address], * Resp Pathogens Panel/SARS CoV-2 (04/27/2025 2:20 AM EST)ComponentValueRef RangeTest MethodAnalysis TimePerformed AtPathologist SignatureSARS COV 2 BY PCRNot DetectedNot Cdeslrhm34/21/2025 4:21 AM [facility] LABORATORYADENOVIRUSNot DetectedNot Rxfykqwr62/21/2025 4:21 AM [facility] LABORATORYCORONAVIRUS 229ENot DetectedNot Hqkmdpvh69/21/2025 4:21 AM [facility] LABORATORYCORONAVIRUS YFJ8Mos DetectedNot Mpwcmzfc66/21/2025 4:21 AM [facility] LABORATORYCORONAVIRUS RD28Vit DetectedNot Ckdmvsie99/21/2025 4:21 AM [facility] LABORATORYCORONAVIRUS NB00Qwi DetectedNot Rdatboao40/21/2025 4:21 AM [facility] LABORATORYHUMAN METAPNEUVIRUSNot DetectedNot Detected 04/27/2025 4:21 AM [facility] LABORATORYRHINO/ENTEROVIRUSNot DetectedNot Hmdtffmc34/21/2025 4:21 AM [facility] INFLUENZA ANot DetectedNot Nnhomfdc99/21/2025 4:21 AM [facility] LABORATORYINFLUENZA BNot DetectedNot Azyysvqg67/21/2025 4:21 AM [facility] LABORATORYPARAINFLUENZA 1Not DetectedNot Detected 04/27/2025 4:21 AM [facility] LABORATORYPARAINFLUENZA 2Not DetectedNot Scqxmrfh01/21/2025 4:21 AM [facility] PARAINFLUENZA 3Not DetectedNot Vboocedm25/21/2025 4:21 AM [facility] LABORATORYPARAINFLUENZA 4Not DetectedNot Jwrxmriv27/21/2025 4:21 AM [facility] LABORATORYRESP SYNCYTIAL VIRUSNot DetectedNot Ywaflhyp69/21/2025 4:21 AM [facility] LABORATORYBORD PARAPERTUSSISNot DetectedNot Gkrwuiev95/21/2025 4:21 AM [facility] LABORATORYBORDETELLA PERTUSSISNot DetectedNot Aiiyypqg61/21/2025 4:21 AM [facility] LABORATORYCHLAM.PNEUMONIAENot DetectedNot Jodmemsg18/21/2025 4:21 AM [facility] LABORATORYMYCOPLASMA PNEUMONIAENot DetectedNot Udueheeb63/21/2025 4:21 AM [facility] LABORATORYSpecimen (Source)Anatomical Location / LateralityCollection Method / VolumeCollection TimeReceived TimeSwabNasopharyngeal structure / Nxypjre5304/27/2025 2:20 AM EST04/27/2025 3:19 AM [facility] LABORATORY - 04/27/2025 4:21 AM [facility] The BioFire Respiratory Panel 2.1 (RP2.1) is a [...] other pathogens. The agent(s) detected by the BioFire RP2.1 may not be the definite cause [...] possible respiratory tract infection. Authorizing ProviderResult TypeResult StatusTansarwat Truong MDMICROBIOLOGY - GENERAL ORDERABLESFinal ResultPerforming OrganizationAddressCity/State/ZIP Code Phone Number [facility] [address] [place] [address], * Rupture of membrane (ALL) (04/27/2025 1:43 AM EST)ComponentValueRef RangeTest MethodAnalysis TimePerformed AtPathologist SignatureRUPTURE OF GDTDVWIFGzyldqicZvrzfcou49/21/2025 3:08 AM [facility] LABORATORYSpecimen (Source)Anatomical Location / LateralityCollection Method / VolumeCollection TimeReceived TimeSwabVaginal structure / Clclgky0304/27/2025 1:43 AM EST04/27/2025 2:13 AM EST Narrative Authorizing ProviderResult TypeResult StatusTansarwat Truong MDBODY FLUIDS AND STOOLS ORDERABLESFinal ResultPerforming OrganizationAddressCity/State/ZIP Code Phone Number [facility] [address] [place] [address], [place] [phone] * Antibody ID (04/27/2025 12:13 AM EST)ComponentValueRef RangeTest Method Analysis TimePerformed AtPathologist SignatureAntibody IDPassive D Antibody, Patient Received RHIG12/ 2:35 AM ESTTTH BB - WELLSKYSpecimen (Source) Anatomical Location / LateralityCollection Method / VolumeCollection Time Received TimeBloodVenous blood / UnknownVenipuncture / Dfnmeit9804/27/2025 12:13 AM EST04/27/2025 12:19 AM EST Narrative Authorizing ProviderResult TypeResult StatusTansarwat Truong MDOOD BANK TEST ORDERABLESFinal ResultPerforming OrganizationAddressCity/State/ZIP CodePhone Number [facility] [address] [place] [address], [place] * Hepatitis C Virus Quantitative by NAAT (04/27/2025 12:13 AM EST)ComponentValue Ref RangeTest MethodAnalysis TimePerformed AtPathologist SignatureHCV InterpretationNot DetectedNot Latestrm87/22/2025 10:38 AM [facility] LABORATORYSpecimen (Source)Anatomical Location / LateralityCollection Method / VolumeCollection TimeReceived TimeBloodVenous blood / Unknown Venipuncture / Szszknh7204/27/2025 12:13 AM EST04/27/2025 12:25 AM EST Narrative Authorizing ProviderResult TypeResult StatusTansarwat HUNTER BLOOD ORDERABLESFinal ResultPerforming OrganizationAddressCity/State/ZIP CodePhone Number [facility] [address] [place] [address], [place] [phone] * Type and screen (04/27/2025 12:13 AM EST)ComponentValueRef RangeTest Method Analysis TimePerformed AtPathologist YlkjmcfzkYZZG15/21/2025 2:18 AM ESTTTH BB - FFQEIDLDMUauljsha69/21/2025 2:18 AM ESTTTH BB - WELLSKYAntibody Screen Pvdxextk95/21/2025 2:18 AM ESTTTH BB - WELLSKYSpecimen (Source)Anatomical Location / LateralityCollection Method / VolumeCollection TimeReceived Time BloodVenous blood / UnknownVenipuncture / Tvbeivu5204/27/2025 12:13 AM EST 04/27/2025 12:19 AM EST Narrative Authorizing ProviderResult TypeResult StatusTansarwat FIGUEROAOOD BANK TEST ORDERABLESEdited Result - FinalPerforming OrganizationAddressCity/State/ZIP Code Phone Number [facility] [address] [place] [phone], * (ABNORMAL) CBC auto differential (04/27/2025 12:13 AM EST)ComponentValueRef RangeTest MethodAnalysis TimePerformed AtPathologist RolxfqiryZUG69.74 - 11 10^9/L106/28/2024 12:57 AM [facility] LABORATORYRBC Count4.03 3.8 - 5.2 10^12/L106/28/2024 12:57 AM [facility] Ywplncxsts23.011.7 - 15.5 g/dL04/27/2025 12:57 AM [facility] MPSQZVSIHAEkqqlrezhh72.6(L)35 - 47 %04/27/2025 12:57 AM [facility] RCFGBVDPOORFF6093 - 100 fL04/27/2025 12:57 AM [facility] WITFJVZDESQUE83.827 - 34 pg04/27/2025 12:57 AM [facility] HNTVNFLURTOOYT65.732 - 36 g/dL04/27/2025 12:57 AM [facility] UILNQFFYIJUOL43.611.5 - 15 %04/27/2025 12:57 AM [facility] LABORATORYPlatelet Nldaq207019 - 450 10^9/L106/28/2024 12:57 AM [facility] LABORATORYMPV8.87 - 12 fL04/27/2025 12:57 AM [facility] LABORATORYNeutrophils %87.8%04/27/2025 12:57 AM [facility] LABORATORYLymphocytes %10.9%04/27/2025 12:57 AM [facility] LABORATORYMonocytes %1.2%04/27/2025 12:57 AM [facility] LABORATORYEosinophils %0.0%04/27/2025 12:57 AM [facility] LABORATORYBasophils %0.1%04/27/2025 12:57 AM [facility] LABORATORYNeutrophils Absolute (A)9.4(H)1.5 - 6.6 10^9/L106/28/2024 12:57 AM [facility] LABORATORYLymphocytes Absolute1.21.0 - 3.5 10^9/L106/28/2024 12:57 AM [facility] LABORATORYMonocytes Absolute0.10.0 - 0.9 10^9/L106/28/2024 12:57 AM [facility] LABORATORYEosinophils Absolute0.00.0 - 0.4 10^9/L106/28/2024 12:57 AM [facility] LABORATORYBasophils Absolute0.00.0 - 0.2 10^9/L106/28/2024 12:57 AM [facility] LABORATORYDifferential TypeAUTOMATED HDNPPUODMHGZ56/21/2025 12:57 AM [facility] LABORATORYSpecimen (Source)Anatomical Location / LateralityCollection Method / VolumeCollection TimeReceived TimeBloodVenous blood / UnknownVenipuncture / Bicwddj8904/27/2025 12:13 AM EST04/27/2025 12:25 AM EST Narrative Authorizing ProviderResult TypeResult StatusTannice Dionne HUNTER BLOOD ORDERABLESFinal ResultPerforming OrganizationAddressCity/State/ZIP CodePhone Number [facility] [address] [place] [address], * (ABNORMAL) Comprehensive metabolic panel (04/27/2025 12:13 AM EST)Component ValueRef RangeTest MethodAnalysis TimePerformed AtPathologist SignatureSODIUM 356935 - 146 mmol/L106/28/2024 12:55 AM [facility] POTASSIUM4.03.5 - 5.0 mmol/L106/28/2024 12:55 AM [facility] RQLQFDBUGYQXMVANFK18775 - 109 mmol/L106/28/2024 12:55 AM [facility] LABORATORYCARBON NIMCDEX20(L)22 - 32 mmol/L106/28/2024 12:55 AM EST [facility] LABORATORYANION FWT493 - 15 mmol/L106/28/2024 12:55 AM [facility] LABORATORYBLOOD UREA FRZBVKEJ441 - 23 mg/dL 04/27/2025 12:55 AM [facility] LABORATORYCREATININE0.510.40 - 1.00 mg/dL04/27/2025 12:55 AM [facility] LABORATORYComment: METHOD TRACEABLE TO IDND DXLYKEZHJQVXFCI882(H)65 - 99 mg/dL04/27/2025 12:55 AM [facility] LABORATORYCALCIUM8.0(L)8.5 - 10.5 mg/dL04/27/2025 12:55 AM [facility] LABORATORYTOTAL PROTEIN6.56.0 - 8.0 g/dL 04/27/2025 12:55 AM [facility] LABORATORYALBUMIN3.73.2 - 5.3 g/dL04/27/2025 12:55 AM [facility] LABORATORYALKALINE EWXFOUKSCEG6287 - 130 U/L106/28/2024 12:55 AM [facility] FLTHDLEKYPGPR89<=41 U/L106/28/2024 12:55 AM [facility] LABORATORYALT7<=31 U/L106/28/2024 12:55 AM [facility] LABORATORYBILIRUBIN,TOTAL0.2(L)0.3 - 1.2 mg/dL04/27/2025 12:55 AM [facility] LABORATORYEGFR Non-Race Dependent>90>=60 ml/min/1.73sq.m 04/27/2025 12:55 AM [facility] LABORATORYComment: Reported eGFR is based on the CKD-EPI 2020 equation that does not use a race coefficient. Specimen (Source)Anatomical Location / LateralityCollection Method / Volume Collection TimeReceived TimeBloodVenous blood / UnknownVenipuncture / Unknown 04/27/2025 12:13 AM EST04/27/2025 12:25 AM EST Narrative Authorizing ProviderResult TypeResult StatusTannice Dionne HUNTER BLOOD ORDERABLESFinal ResultPerforming OrganizationAddressCity/State/ZIP CodePhone Number [facility] [address] [place] [address], * Syphilis Total (Unknown Syphilis Status) (04/27/2025 12:13 AM EST)Component ValueRef RangeTest MethodAnalysis TimePerformed AtPathologist Signature SYPHILIS TOTAL<0.2<=0.8 AI04/27/2025 7:02 AM [facility] LABORATORYSpecimen (Source)Anatomical Location / LateralityCollection Method / VolumeCollection TimeReceived TimeBloodVenous blood / UnknownVenipuncture / Fjzareg1604/27/2025 12:13 AM EST04/27/2025 12:25 AM EST Narrative [facility] - 04/27/2025 7:02 AM EST NON REACTIVE No serologic evidence of infection to Treponema pallidum. Repeat testing may be considered in patients with suspected acute or primary syphilis in 2 to 4 weeks. Authorizing ProviderResult TypeResult StatusTansarwat HUNTER BLOOD ORDERABLESFinal ResultPerforming OrganizationAddressCity/State/ZIP CodePhone Number [facility] [address] [place] [address], * PST TOP (04/27/2025 12:08 AM EST)ComponentValueRef RangeTest MethodAnalysis TimePerformed AtPathologist SignatureExtra TubeAuto Hqdbemkd64/21/2025 2:02 AM [facility] LABORATORYSpecimen (Source)Anatomical Location / LateralityCollection Method / VolumeCollection TimeReceived TimeBloodVenous blood / Adoliqi9004/27/2025 12:08 AM EST04/27/2025 12:26 AM EST Narrative Authorizing ProviderResult TypeResult StatusDaorlando Cook MDLAB BLOOD ORDERABLESFinal ResultPerforming OrganizationAddressCity/State/ZIP CodePhone Number [facility] [address] [place] [address], * Light Blue Top (04/27/2025 12:08 AM EST)ComponentValueRef RangeTest Method Analysis TimePerformed AtPathologist SignatureExtra TubeAuto Resulted 04/27/2025 2:02 AM [facility] LABORATORYSpecimen (Source) Anatomical Location / LateralityCollection Method / VolumeCollection Time Received TimeBloodVenous blood / Cvrugyp7304/27/2025 12:08 AM EST04/27/2025 12:26 AM EST Narrative Authorizing ProviderResult TypeResult StatusDavid Kya HUNTER BLOOD ORDERABLESFinal ResultPerforming OrganizationAddressCity/State/ZIP CodePhone Number [facility] [address] [place] [address], [place] [phone] documented in this encounter Visit Diagnoses Diagnosis [...] 2359, L&D Pre-Delivery Given04/27/2025 4:03 PM EST1,000 klLfgfy0104/27/2025 7:03 AM EST1,000 mgGiven 04/27/2025 2:24 AM [...] mL/hrNew Bag04/27/2025 3:16 PM EST2,000 mg200 mL/hrRate/Dose Qfraqb6904/27/2025 9:10 AM FUD337 mL/hr betamethasone acet & sod phos (CELESTONE) [...] 500 mg calcium carbonate Given04/27/2025 9:16 PM LVU434 jkKbdav4104/27/2025 1:55 AM EEI084 mg calcium gluconate injection 1,000 mg 1,000 [...] 0300, For 8 doses, L&D Pre-Delivery New Bag04/27/2025 9:48 PM HFP652 mg105 mL/hrNew Bag04/27/2025 4:04 PM JIE852 mg 105 mL/hrNew Bag04/27/2025 9:52 AM RMP374 mg105 mL/hr glucagon HCL injection 1 mg [...] mL/hr, Administer over 61 Minutes, Once, On Mon04/27/25 at 0545, For1 dose Ggtpbflnu75/21/2025 6:47 AM ZSG559 mL/hrRate/Dose Nqkhpa6804/27/2025 6:00 AM EST 984 mL/hrNew Bag04/27/2025 5:40 AM EST1,000 mL984 mL/hr lactated ringers infusion 250 mL/hr, intravenous, Continuous PRN, to improve utero-placental perfusion and/or relieve cord compression, Starting on 04/26/25 at 2359, For 1 day, L&D Pre-Delivery lactated ringers infusion 75 mL/hr, intravenous, Continuous, Starting on 04/27/25 at 0430, For 1 day Melynizuq65/21/2025 10:52 AM EST75 mL/iyEbrdgfjop76/21/2025 9:35 AM EST75 mL/hr Wymdpiphq13/21/2025 8:08 AM EST75 mL/hr75 mL/hr magnesium sulfate [...] nausea, respiratory depression, and/or cardiac arrest) New Bag04/27/2025 1:51 AM EST2 g/hr50 mL/hr ondansetron (PF) (ZOFRAN) injection 4 mg 4 mg, intravenous, Once, On 04/27/25 at 0545, For 1 dose, Intravenous administration preferred to be given over 2-5 minutes. Given04/27/2025 5:35 AM EST4 mg PNV,calcium 20-ccdc-pcmya acid ( PLUS) 27 mg iron- 1 mg tablet 1 tablet 1 tablet, oral, Daily, First dose on 04/27/25 at 0900, L&D Pre-Delivery Given04/27/2025 9:08 AM EST1 tablet sodium chloride 0.9 % flush 3 mL 3 mL, intravenous, Every 8 hours, First dose on 04/27/25 at 0015, L&D Pre- Delivery, Flush peripheral line per protocol Given04/27/2025 5:08 PM EST3 aILgrwp5104/27/2025 9:07 AM EST3 mL sodium chloride 0.9 % flush 3 mL 3 mL, intravenous, As needed, line care, to maintain patency, Starting on Mon04/27/25 at 0000, L&D Pre-Delivery valACYclovir (VALTREX) tablet 1,000 mg 1,000 mg, oral, 2 times daily, First dose on Mon04/27/25 at 0930, Look-alike/sound-alike medication - verify indication for use., Indication: Mucocutaneous HSV Given04/27/2025 9:13 PM EST1,000 htCokni4404/27/2025 11:07 AM EST1,000 mg documented in this [...] * 0307 (New Bag - Provider: Kenia Perez, KLEVER) * 0326 (Rate/Dose Verify - Provider: Kenia Perez RN) * 0337 (Stop Bag - Provider: Kenia Perez, RN) * 0337 (Stop Bag - Provider: Kenia Perez, RN) * 0905 (New Bag - Provider: Kaleigh Dexter, RN) * 0910 (Rate/Dose Verify - Provider: Kaleigh Dexter, RN) * 0935 (Stop Bag - Provider: Kaleigh Dexter, RN) * 0935 (Stop Bag - Provider: Kaleigh Dexter, RN) * 1516 (New Bag - Provider: Kaleigh Dexter RN) * 1546 (Stop Bag - Provider: Jemima Weaver, RN) * 211 (New Bag - Provider: Shanika Ortega, RN) * 214 (Stop Bag - Provider: Shanika Ortega, RN) betamethasone acet & sod phos (CELESTONE) injection 12 mg (COMPLETED) 12 mg, intramuscular, Once, On 04/27/25 at 1730, For 1 dose, May alter blood glucose or insulinrequirements. * 1925 (Given - Provider: Shanika Ortega RN) erythromycin (E-MYCIN) EC tablet 250 mg(Linked [...] 0448 (Stop Bag - Provider: Kenia Perez, RN) * 0952 (New Bag - Provider: Kaleigh Dexter, RN) * 1052 (Stop Bag - Provider: Kaleigh Dexter, RN) * 1604 (New Bag - Provider: Jemima Weaver, RN) * 1704 (Stop Bag - Provider: Shanika Ortega, RN) * 2148 (New Bag - Provider: Shanika Ortega, RN) * 2248 (Stop Bag - Provider: Shanika Ortega, RN) lactated ringers bolus (COMPLETED) 1,000 mL, intravenous, at 984 mL/hr, Administer over 61 Minutes, Once, On Mon04/27/25 at 0545, For1 dose * 0540 (New Bag - Provider: Kenia Perez RN) * 0600 (Rate/Dose Verify - Provider: Kenia Perez, RN) * 0641 (Stop Bag - Provider: [...] (Given - Provider: Kenia Perez RN) PNV,calcium 58-seed-keoxy acid ( PLUS) 27 mg iron- 1 [...] RN) * 1708 (Given - Provider: Kaleigh Dexter, RN) valACYclovir (VALTREX) tablet 1,000 mg 1,000 mg, oral, 2 times daily, First dose on 04/27/25 at 0930, Look-alike/sound-alike medication - verify indication for use., Indication: Mucocutaneous HSV * 1107 (Given - Provider: Kaleigh Dexter RN) * 2113 (Given - Provider: Shanika Ortega RN) Medication Order04/25/20240509//[id number]/ lactated ringers infusion (CANCELED) 75 mL/hr, intravenous, Continuous, Starting on 04/27/25 at 0430, For 1 day * 0538 (New Bag - Provider: Kenia Perez RN) * 0540 (Stop Bag - Provider: Kenia Perez RN) * 0808 (Restarted - Provider: Kaleigh Dexter RN) * 0905 (Paused - Provider: Kaleigh Dexter RN) * 0935 (Restarted - Provider: Kaleigh Dexter RN) * 0952 (Paused - Provider: Kaleigh Gold, RN) * 1052 (Restarted - Provider: Kaleigh Dexter, RN) * 1108 (Stop Bag - Provider: Kaleigh Dexter, RN) magnesium sulfate infusion 20 grams/500 mL [...] * 0151 (New Bag - Provider: Kenia Perez, RN) * 0658 (Handoff - Provider: Kaleigh Dexter RN) * 0909 (Stop Bag - Provider: Kaleigh Dexter RN) Medication Order/ acetaminophen (TYLENOL EXTRA STRENGTH) tablet 1,000 mg 1,000 mg, oral, Every 6 hours PRN, mild pain - pain scale 1-3, headaches, Starting on 04/26/25 at 2359, L&D Pre-Delivery * 0224 (Given - Provider: Kenia Perez, K[facility]) * 0703 (Given - Provider: Kaleigh Dexter, [...] follow-up plan has been documented for the toslwjf5809/11/2018 4:32 PM EDTdocumented as of this encounter Care Teams Team MemberRelationshipSpecialtyStart DateEnd Date Rebecca Rizvi APRN-JEYSON [address] [place] [phone] PCP - GeneralNurse Practitioner08/23/22documented as of this encounter
--- NOTE | 2025-05-02 10:31 | US_ITS ---
[place] [id number] Patient Name: BRENDA LOGAN MRN: [id number] date: 1990 Sex: F Assigned Patient Location: [facility] Current Patient Location: [facility] Accession/Order Number: [id number] Exam Date: 05/02/2025 10:35 Report Date: 05/02/2025 11:25 At the request of: MAMADOU TOSCANO DO Procedure: US OB BPP w non-stress BIOPHYSICAL PROFILE: CLINICAL INFORMATION: Twin following selective reduction COMPARISON: 04/30/2025 There is a twin with known demise of fetus A. Fetus B is in cephalic presentation. The reported gestational age is 29 weeks 2 days. The heart rate for fetus B measures 155 beats per minute. FINDINGS: TONE: 1 or more episodes of activity extension and flexion of extremity or opening and closing of the hand [Y] 2/2 GROSS BODY MOVEMENTS: 3 or more discrete body or limb movements [Y] 2/2 BREATHING MOVEMENTS: 1 or more episodes of breathing lasting at least 30 seconds [Y] 2/2 PAMELA: A single deepest vertical pocket of amniotic fluid greater than 2 cm [Y] 2/2 PAMELA: 13.8 cm Total score: 8/8 US/US OB BPP w non-stress IMPRESSION: TWIN WITH SELECTIVE DEMISE OF FETUS A. NORMAL BIOPHYSICAL PROFILE FOR FETUS B. Impression dictated by: Malena Salcido M.D. 05/02/2025 11:25 AM Dictation Location: [employer] Electronically authenticated by: [id number] Y Date: 05/02/2025 11:25
--- OUTSIDE RECORDS SUMMARY | 2025-05-02 10:31 | XMS_ITS | Encounter Summary ---
Author Organization [employer] tem Address [id number] [address] 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 Name Role Phone Rebecca Rizvi BLANCA-CARE DIRECTOR RN Primary Care Provider Encounter Details DateTypeDepartmentCare Team (Latest Contact Info)Ftbnzjuojyd49/23/2025[facility] [address] [place] [phone] Opal Herndon, RN Social History Tobacco UseTypesPacks/DayYears [...] care, and heating?Not hard at all05/07/2024HQ-2AnswerDate RecordedTotal Fvrsk411PRAPARE - TransportationAnswerDate RecordedIn the past 12 months, has lack of transportation kept you from medical appointments or from getting medications?No 03/28/2024In the past 12 months, has lack of transportation kept you from meetings, work, or from getting things needed for daily living?No03/28/2024 [place] Depression ScaleAnswerDate RecordedEdinburgh Depression Scale Hqlga429The thought of harming myself has occurred to [...] of a household?No4Childcare AnswerDate RecordedDo problems getting summer child caregiver make [...] True03/11/2025Purpose - LifeAnswerDate RecordedPurpose and direction in dfszLpbfugk71/10/2021Estimated Date of XmkmxapfFetqfzkpZig42/11/2026Based on UltrasoundSex and Gender InformationValue Date RecordedSex Assigned at NhlqcFckauz91/02/2022 7:15 PM EDTLegal SexFemale 12/09/2014 2:44 PM EDTGender MmookxhkZwigng43/02/2022 7:15 PM EDTSexual AlvkunablrrGgyvdxlq57/02/2022 7:15 PM EDTdocumented as of this encounter Miscellaneous Notes * Telephone Encounter - Opal Herndon RN - 04/29/2025 3:15 PM EST Prior authorization done on covermymeds. Waiting for approval. Patient notified it could take 24-48hours to be completed. documented in this encounter Plan of Treatment DateTypeDepartmentCare Team (Latest Contact Info)Qsbftwtghrm15/08/2026 8:30 AM ESTAppointment [facility] [address] [place] [phone] 05/15/2025 11:00 AM ESTOffice Visit Maternal- Medicine at [facility] [address] [place] [phone] Charlene Lees MD [address], [address] [place] [phone] 11/04/2025 4:00 PM EDTOffice Visit [facility] [address] [place] [phone] Rebecca Rizvi APRN-CNP [address] [place] [phone] documented as of this encounter Visit Diagnoses Not on filedocumented in this encounter Additional Health Concerns AssessmentNoted TimePHQ-9 Depression Total Score: 3:04 PM EDTA Body Mass Index follow-up plan has been documented for the zxauaio1809/11/2018 4:32 PM EDTdocumented as of this encounter Care Teams Team MemberRelationshipSpecialtyStart DateEnd Date Rebecca Riziv APRN-CNP [address] [place] [phone] PCP - GeneralNurse Practitioner08/23/22documented as of this encounter
--- OUTSIDE RECORDS SUMMARY | 2025-05-02 10:32 | XMS_ITS | Clinical Summary ---
Author Organization Dibsie tem Address [id number] [address] [place] [address] Care Team Providers Care Funeral Home Attendant Name Role Phone Rebecca Rizvi BLANCA-HUMAN RELATIONS MANAGER Primary Care Provider Allergies No known active allergies Medications * This document contains information received from the source organization and may not represent a complete record from that organization. MedicationSigDispense QuantityRefillsLast FilledStart DateEnd DateStatus omeprazole (PriLOSEC) 40 mg capsule Indications:Heart burnTake 1 capsule (40 mg total) by mouth in the morning. 30 capsule 6084Active Additional Information Patient not taking.Reported on 04/14/2025 115-ttev-fshvqm 6-dha 27 mg iron-1 mg -205 mg [...] tablet oral Daily, Bedtime,Occasionally, Reported on 04/14/2025 FMWD-hnrtnsks-pxzlwnbpslw xt 100-100-225 mg capsule Take 1 capsule [...] Ortho: []Peds Surgery: []Peds Neurology: [x]Peds Neurosurgery: [facility] 03/18/25 Pediatric neurosurgical consultation has been sought [...] Consult: []Palliative Care Consult: []SGM: []Life Connection: [x]Home: 03/17 and 03/18 [x] MRI & US [...] Term at local hospital [] Term at [facility] Surveillance Plan: [] Survey at __ weeks [] Growth q __ weeks [] Dopplers q __ weeks [] Echo at __ weeks [] Cervical length q __ weeks [] TTTS q __ weeks [] Wkly NST/PAMELA starting at __ weeks [] 2x/wk NST/PAMELA starting at __ weeks ProblemNoted DateDiagnosed DatePremature rupture of usmsorucs45/21/2025MA (advanced maternal age) multigravida 35+, second wyzrxrwpy26/04/2025nemia affecting in third akvzcahqd95/30/2024 Overview (01/23/2024): 01/15: IV iron 01/22: IV iron Vitamin D /03/2023Estimated Date of DeliveryCommentsYes 6Based on Ultrasound Resolved Problems ProblemNoted DateDiagnosed DateResolved DateNSVD (normal spontaneous vaginal delivery)/5871Nytnozadv21Normal labor03/26/2024 weeks gestation of dkhzrsynk79bdominal pressure Irregular uterine xyhgledzagwf64History of heroin abuse Overview (03/17/2024): 03/17/2024: Patient states she has been clean since 2011. Fbldxsmz17 Overview (11/14/2023): Bleeding after intercourse - 10-31-23 spec exam done. Bleeding is coming from metaplasia of cervix. Thick/closed 488529 = GC and CT negative Hx of [...] MFM consult: Rh negative state in antepartum xuuypz44/HSV infection Overview (10/31/2023): 09-05-23 genital lesion cultured- + HSV2 States gets oral lesions Discussed genital HSV and need for prophylaxis at 34 weeks. 10-31-23 - c/o HSV oral break out. 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 They have a afkj-qdxj-bkw daughter that has a mild form (Clemens [...] 25%. We reviewed all children born in [place] are screened for galactosemia via screening (NBS) after . 1. Amniocentesis discussed and declined. 2. Continue to monitor the via ultrasound. 3. Patient diagnoses: galactosemia carriers, family history of galactosemia and muscular dystrophy History of loop electrical excision procedure (LEEP)/ Overview (09/05/2023): LEEP 2016 Cervical lengths to start at 16 weeks until 24 weeks. Intermittent explosive fkhiqqur61ipolar dpzgqaxv76/23/2023 10/01/20244528Mrowbxlf53History of drug abuse09/06/2022EczemaVitamin B 12 /02/2023 02/21/2023FH: brain gbtgxsrb08pontaneous vaginal delivery Failed induction of labor, vljteeubyy69 Intrauterine mcnivjkck19Echogenic focus of heart of fetus affecting antepartum care of tmxuiu62 Overview (10/09/2017): First Trimester and MSAFP is WNL US was repeated and the EIF Is smaller - her first trimester screen was negative PLAN: rpt US in 4 weeks Notify Peds at History of hepatitis Overview (09/08/2023): treated 04/2020 with Mavyret (Dr. Daniel) 09/07/22 viral load undetectable 09/05/23 viral load undetected Rh negative, antepartum, first dfwflntoz50Attention deficit hyperactivity disorder (ADHD), predominantly hyperactive type03/20/2017 10/01/20247470Gxkoxrm64Headaches, bjrderj36HCV antibody Overview (07/17/2017): Avoid scalp electrode Notify peds at delivery LFT and viral load each trimester and at delivery Elevated liver vzdwcop92Cannabis abuse Tobacco useHistory of opioid abuse Overview (08/14/2017): Has not used opoid since Hx of intravenous drug use in jlyfnlstf15CIN II (cervical intraepithelial neoplasia II) Overview (08/14/2017): =ASC-H =HGSIL = LEEP - Dr. Bhatia - PAP=WNL Rpt PAP post Encounters DateTypeDepartmentCare BmdwYzpmnxltmvv09/24/2025Documentation Maternal- Medicine at [facility] [address] [place] [phone] Eliza Chinchilla, HANDICAPPER HARNESS RACING-JOVANNY 04/29/2025[facility] [address] [place] [phone] Opal Herndon RN 04/27/20258055Xrusme38/20/2025 11:50 PM EST - 04/27/2025 11:24 PM ESTHospital Encounter [facility] - Labor [address] [place] [phone] Escobar Cook MD premature rupture of membranes (PPROM) with unknown onset of labor (Primary Dx); premature rupture of membranes in third trimester, unspecified duration to onset of labor Discharge Disposition: Left Against Medical Advice or Discontinued Care 04/14/2025 9:00 AM ESTOffice Visit Maternal Medicine [facility] [address] [place] [address] Abiola Chris MD 26 weeks gestation of (Primary Dx); Twin following selective reduction, antepartum; Dichorionic diamniotic twin in second trimester; Carrier of ibhhuovdnmxp34/08/9990Zkpwip31/24/2025Orders Only Maternal- Medicine at [facility] [address] [facility] [place] [address] Debo Shea RN AMA (advanced maternal age) multigravida 35+, second trimester (Primary Dx); Dichorionic diamniotic twin in second /24/2025Orders Only Maternal- Medicine at [facility] [address] [place] [address] Malena Ocasio RDMS 03/19/2025Orders Only Maternal- Medicine at [facility] [address] [facility] [place] [address] Ref Prov, Not In System 03/18/2025Telephone Maternal- Medicine at [facility] [address] [place] [address] Helen Robertson RN 03/11/2025 11:00 AM ESTOffice Visit Maternal- Medicine at [facility] [address] [place] [address] Tejinder Mccarthy MD Anemia affecting in third trimester (Primary Dx); AMA (advanced maternal age) multigravida 35+, second epwfullmc16/04/2025 8:54 AM EST - 03/11/2025 11:59 PM ESTHospital Encounter [facility] US Imaging [address] [place] [phone] Screening, , for anatomic survey Discharge Disposition: Home03/11/20254724Lzvlha08/16/2025Orders Only Maternal- Medicine at [facility] [address] [place] [address] Ref Prov, Not In System 02/19/2025 1:45 PM EDTSupport Visit Maternal- Medicine at [facility] [address] [place] [address] 02/19/20251416Qnxegz56/06/2025bstract Maternal- Medicine at [facility] [address] [facility] [place] [phone] Tejinder Mccarthy MD from Last 3 Months Immunizations ImmunizationAdministration DatesNext QhtHDR4806/12/1989,02/08/1990,1989DTaP, Oyrwzqedygg55/08/2002,10/04/1994,04/16/1991HPV Oeatckwahcyv14/14/2007Hep A, 2 Dose03/21/2007Hep B, Adolescent or Nyqvnrvvk61/26/2002,05/15/2001,04/04/2001HiB 02/12/1991,09/20/1990,08/05/1990Influenza, Injectable, quadrivalent (PF) 02/27/2024,05/22/2017MMR05/15/2001,02/12/1991Meningococcal QZM0G5103/21/2007OPV 10/04/1994,04/16/1991,02/08/1990,1989Polio, Gmslepjhisi96/08/2002RSV, bivalent, protein subunit RSVpreF, diluent reconstituted, 0.5 mL, PF02/23/2024 Rho (D) Immune Kivvlbea29/21/2024,01/02/2024,11/14/2023,08/23/2023,09/11/2017Td, Bixapjhotoh35/26/1793Iigq83/06/2024 Family History Medical HistoryRelationNameCommentsDrug abuseBrotherDrug abuseFatherHeart diseaseFatherMigrainesFatherParkinsonismMaternal [...] RecordedIn the past 12 months has the AltSchool, gas, oil, or water Embly threatened to shut off services in your home?No03/28/2024Overall Financial Resource Strain (CARDIA)AnswerDate RecordedHow hard is it for you to pay for the very basics like food, housing, medical care, and heating?Not hard at all05/07/2024HQ-2AnswerDate RecordedTotal Xdjlz866PRAPARE - TransportationAnswerDate RecordedIn the past 12 months, has lack of transportation kept you from medical appointments or from getting medications?No03/28/2024In the past 12 months, has lack of transportation kept you from meetings, work, or from getting things needed for daily living?No03/28/2024Edinburgh Depression ScaleAnswerDate Recorded Burnham Depression Scale Ilyiu745The thought of harming myself has occurred to [...] of a household?No03/28/2024hildcareAnswerDate RecordedDo problems getting child care centre manager make it difficult for you to work or study?No05/07/2024EmploymentAnswerDate DbbgxqtmTbtybrecuhEimsglc03/10/2019Hunger ScreeningAnswerDate RecordedWithin the past 12 months we worried whether our food would run out before we got money to buy more.Never True03/11/2025Within the past 12 months the food we bought just didn't last and we didn't have money to get more.Never True03/11/2025Purpose - LifeAnswerDate RecordedPurpose and direction in jknfPikkjwy59/10/2021 Estimated Date of UcbssldsSrbzqgfmGof63/11/2026Based on UltrasoundSex and Gender InformationValueDate RecordedSex Assigned at NhuchCtwzav18/02/2022 7:15 PM EDT Legal PpdLsmwit23/04/2015 2:44 PM EDTGender LvblqndnHsqjkn92/02/2022 7:15 PM EDT Sexual MlsgroqenjcGtmfrbod81/02/2022 7:15 PM EDT Last Filed Vital Signs Vital SignReadingTime TakenCommentsBlood Ajuqjzqq091/6004/27/2025 7:23 PM EST Rfnqf463504/27/2025 7:23 PM FAQUtybdjihmdn83.7 ??C (98.1 ??F)04/27/2025 9:34 PM ESTRespiratory Euld462406/28/2024 7:23 PM ESTOxygen Vwywiiiykj25%04/27/2025 9:00 AM ESTInhaled Oxygen Concentration--Tyisyr54.9 kg (185 lb)04/14/2025 9:04 AM EST Zqaisf818 cm (5' 2.99 )03/11/2025 9:42 AM ESTBody Mass Index32.7803/11/2025 9:42 AM EST Plan of Treatment DateTypeDepartmentCare Team (Latest Contact Info)Astlfkehfbh97/08/2026 8:30 AM ESTAppointment [facility] [address] [place] [address] 05/15/2025 11:00 AM ESTOffice Visit Maternal- Medicine at [facility] [address] [place] [phone] Abiola Chris MD [address] [facility] [address] [place] [address] 11/04/2025 4:00 PM EDTOffice Visit [facility] [address] [facility] [place] [phone] Rebecca Rizvi, HANDICAPPER HARNESS RACING-HUMAN RELATIONS MANAGER [address] [place] [address], [place] [phone] Health MaintenanceDue DateLast DoneCommentsAdult BMI Follow Up Plan10/04/2007 Influenza Eyzgjsp70/, 05/22/2017Depression Lpaecadnp35/24/2026 10/29/2024, 05/07/2024dult BMI Nrrdicvkm12/12/2024Tobacco Screening Pap Smear8010/01/2024, 10/01/2024, 09/05/2023, Additional history existsDTaP,Tdap and Td Vaccines (9 - Td or Tdap)01/11/2034 01/12/2024, 12/31/2001, 05/15/2001, Additional history existsRSV ( or age 60+ yrs)Ujrymwzty61/18/2024 Medical Devices Not on file Procedures Procedure NamePriorityDate/TimeAssociated DiagnosisCommentsURINALYSISRoutine 04/27/2025 7:56 AM EST LACTATE W/ ENBYUTKIBW76/21/2025 6:25 AM EST COMPREHENSIVE METABOLIC KUYTLBAWT50/21/2025 6:25 AM EST CBC WITH AUTO SGFSVTIXCWNTZDWY74/21/2025 6:25 AM EST BLOOD PICOCZBIJLF63/21/2025 6:25 AM EST BLOOD AOLVYUMTCDU18/21/2025 6:25 AM EST EXTRA TUBES BLUE XJWKrhzpfr48/21/2025 6:24 AM EST EXTRA ZZGQKXzasucp02/21/2025 6:24 AM EST STREP B NIVHXWOozcryz98/21/2025 2:20 AM EST CHLAMYDIA/GC BY PCR NORBERTO SSZQDmyrfqw34/21/2025 2:20 AM EST MOLECULAR VAGINITIS PANEL YSQMsblkco33/21/2025 2:20 AM EST RESP PATHOGENS PANEL/PLOX-WUT-0Vrcvalg25/21/2025 2:20 AM EST RUPTURE OF MEMBRANE (ALL)Kayhkoo1404/27/2025 1:43 AM EST ANTIBODY NKHofzxjg98/21/2025 12:13 AM EST TYPE AND UPZLWIQQHN26/21/2025 12:13 AM EST HEPATITIS C VIRUS QUANTITATIVE BY NAATAdd-On04/27/2025 12:13 AM EST CBC WITH AUTO VYRTDEPVDNIZVKPB77/21/2025 12:13 AM EST COMPREHENSIVE METABOLIC EJVQQRFLX83/21/2025 12:13 AM EST SYPHILIS TOTAL(UNKNOWN SYPHILIS STATUS)STAT106/28/2024 12:13 AM EST EXTRA TUBES PST PZXYdjjqfo58/21/2025 12:08 AM EST EXTRA TUBES BLUE IZDRokxhxr00/21/2025 12:08 AM EST EXTRA ENFHLQbtvpve39/21/2025 12:08 AM EST US MFM OB FOLLOW-UP, 1 TVEVYJplfkag78/08/2025 9:15 AM EST AMA (advanced maternal age) multigravida 35+, second trimester Dichorionic diamniotic twin in second trimester ULTRASOUND KZSUSKBqtlzgp01/11/2025 11:14 AM ESTMR PMWBFWhnmrty84/10/2025 11:19 AM ESTULTRASOUND AKTPLJXbdrllg89/10/2025 11:07 AM ESTUS MFM COMPREHENSIVE ANATOMIC RFOOXOXjwhvvb50/04/2025 11:56 AM EST Screening, , for anatomic survey FREE CELL DNA (NON-[facility] SEND OUT)Frelmwn8202/18/2025 11:39 AM EDTHIGH RISK HPV W/DQOTCgcqmuh00/27/2025 1:50 PM EDT Screening for cervical cancer from Last 3 Months or Most Recently Relevant to Health Maintenance Results * (ABNORMAL) Urinalysis (04/27/2025 7:56 AM EST)ComponentValueRef RangeTest MethodAnalysis TimePerformed AtPathologist SignatureCOLORYellowYellow 04/27/2025 8:41 AM [facility] LABORATORYTURBIDITYClearClear 04/27/2025 8:41 AM [facility] LABORATORYSPECIFIC GRAVITY1.023 1.003 - 1.3665604/27/2025 8:41 AM [facility] LABORATORYNITRITE VjgeyfawTvlxtkpz80/21/2025 8:41 AM [facility] PH,URINE6.55.0 - 8.512 8:41 AM [facility] LEUKOCYTE OCZESEZJLodplankLvgwkfns02/21/2025 8:41 AM [facility] LABORATORYPROTEINTrace(A)Qtqtthgt44/21/2025 8:41 AM [facility] LABORATORYKETONES (URINE)10 mg/dL(A)Zjauspkd84/21/2025 8:41 AM [facility] LABORATORYUROBILINOGEN<1.1 eu/dL<1.1 eu/dL04/27/2025 8:41 AM [facility] LABORATORYBILIRUBIN (URINE)Negative Nzomzzjo08/21/2025 8:41 AM [facility] LABORATORYBLOOD/HGB DmekifpuKldiiwwe32/21/2025 8:41 AM [facility] MUCOUSPresent(A)None04/27/2025 8:41 AM [facility] R.B.CELLS10 - 512 8:41 AM [facility] SQUAMOUS ZRJKGSJYJV41 - 8:41 AM [facility] LABORATORYW.B.CELLS10 - 8:41 AM [facility] LABORATORYGLUCOSE (URINE)YmocbqqeWfugvyrz98/21/2025 8:41 AM [facility] LABORATORYSpecimen (Source)Anatomical Location / Laterality Collection Method / VolumeCollection TimeReceived TimeUrineUrine / Unknown 04/27/2025 7:56 AM EST04/27/2025 8:24 AM EST Narrative Authorizing ProviderResult TypeResult StatusTansarwat Truong MDURINE ORDERABLES Final ResultPerforming OrganizationAddressCity/State/ZIP CodePhone Number [facility] [address] [place] [address], * Lactate w/ Reflex (04/27/2025 6:25 AM EST)ComponentValueRef RangeTest Method Analysis TimePerformed AtPathologist SignatureLACTATE W/REFLEX1.00.4 - 2.0 mmol/L106/28/2024 7:23 AM [facility] LABORATORYSpecimen (Source)Anatomical Location / LateralityCollection Method / VolumeCollection TimeReceived TimeBloodVenous blood / UnknownVenipuncture / Tezoxvb1504/27/2025 6:25 AM EST04/27/2025 6:41 AM EST Narrative [facility] - 04/27/2025 7:23 AM EST Result did not trigger repeat Lactate, re-order if needed. Authorizing ProviderResult TypeResult StatusTansarwat HUNTER BLOOD ORDERABLESFinal ResultPerforming OrganizationAddressCity/State/ZIP CodePhone Number [facility] [address] [place] [address], * (ABNORMAL) CBC auto differential (04/27/2025 6:25 AM EST) Only the most recent of2 resultswithin the time period is included. ComponentValueRef RangeTest MethodAnalysis TimePerformed AtPathologist Signature WBC12.1(H)4 - 11 10^9/L106/28/2024 6:52 AM [facility] RBC Count3.823.8 - 5.2 10^12/L106/28/2024 6:52 AM [facility] REGFKLTLLUZkdhnvsuhc05.3(L)11.7 - 15.5 g/dL04/27/2025 6:52 AM [facility] WSNUDTXRBPPpngtvyxtg02.3(L)35 - 47 %04/27/2025 6:52 AM [facility] UTAJENXNTHHIX7434 - 100 fL04/27/2025 6:52 AM [facility] KCVABNWZMEXZT48.627 - 34 pg04/27/2025 6:52 AM [facility] MURAYCCXADLWHD89.932 - 36 g/dL04/27/2025 6:52 AM [facility] HRBNBFYEZBGNY74.611.5 - 15 %04/27/2025 6:52 AM [facility] LABORATORYPlatelet Lbfvt853785 - 450 10^9/L106/28/2024 6:52 AM [facility] LABORATORYMPV8.37 - 12 fL04/27/2025 6:52 AM EST [facility] LABORATORYNeutrophils %89.5%04/27/2025 6:52 AM EST [facility] LABORATORYLymphocytes %8.6%04/27/2025 6:52 AM [facility] LABORATORYMonocytes %1.8%04/27/2025 6:52 AM [facility] LABORATORYEosinophils %0.1%04/27/2025 6:52 AM [facility] LABORATORYBasophils %0.0%04/27/2025 6:52 AM [facility] LABORATORYNeutrophils Absolute (A)10.8(H)1.5 - 6.6 10^9/L106/28/2024 6:52 AM [facility] LABORATORYLymphocytes Absolute1.01.0 - 3.5 10^9L106/28/2024 6:52 AM [facility] LABORATORYMonocytes Absolute0.20.0 - 0.9 10^9L106/28/2024 6:52 AM [facility] LABORATORYEosinophils Absolute0.00.0 - 0.4 10^04/27/2025 6:52 AM [facility] LABORATORYBasophils Absolute0.00.0 - 0.2 10^04/27/2025 6:52 AM [facility] LABORATORYDifferential TypeAUTOMATED RXILQAPKOPEN01/21/2025 6:52 AM [facility] LABORATORYSpecimen (Source)Anatomical Location / LateralityCollection Method / VolumeCollection TimeReceived TimeBloodVenous blood / UnknownVenipuncture / Xdecooy5104/27/2025 6:25 AM EST04/27/2025 6:42 AM EST Narrative Authorizing ProviderResult TypeResult StatusTannice Doinne HUNTER BLOOD ORDERABLESFinal ResultPerforming OrganizationAddressCity/State/ZIP CodePhone Number [facility] [address] [place] [address], * Blood culture #2 (04/27/2025 6:25 AM EST) Only the most recent of2 resultswithin the time period is included. ComponentValueRef RangeTest MethodAnalysis TimePerformed AtPathologist Signature CULTURE RESULTSNO GROWTH 5 DAYS05/02/2025 10:01 AM [facility] LABORATORYSpecimen (Source)Anatomical Location / LateralityCollection Method / VolumeCollection TimeReceived TimeBloodVenous blood / UnknownVenipuncture / Gbsldfu5704/27/2025 6:25 AM EST04/27/2025 9:31 AM EST Narrative [facility] - 05/02/2025 10:01 AM EST Suboptimal volume of blood collected, Results may be affected. Authorizing ProviderResult TypeResult StatusTannice Fogkevin MDMICROBIOLOGY - GENERAL ORDERABLESFinal ResultPerforming OrganizationAddressCity/State/ZIP Code Phone Number [facility] [address] [place] [address], * (ABNORMAL) Comprehensive metabolic panel (04/27/2025 6:25 AM EST) Only the most recent of2 resultswithin the time period is included. ComponentValueRef RangeTest MethodAnalysis TimePerformed AtPathologist Signature JZXCVH448931 - 146 mmol/L106/28/2024 7:18 AM [facility] LABORATORYPOTASSIUM3.93.5 - 5.0 mmol/L106/28/2024 7:18 AM [facility] BRCAYFGFZEFNGEBRYH82998 - 109 mmol/L106/28/2024 7:18 AM [facility] LABORATORYCARBON QIIMWNF40(L)22 - 32 mmol/L106/28/2024 7:18 AM [facility] LABORATORYANION GAP85 - 15 mmol/L106/28/2024 7:18 AM [facility] LABORATORYBLOOD UREA CDOYUWJD03 - 23 mg/dL04/27/2025 7:18 AM [facility] LABORATORYCREATININE0.510.40 - 1.00 mg/dL 04/27/2025 7:18 AM [facility] LABORATORYComment:METHOD TRACEABLE TO IDMS BKDUNSTECLPUFVK260(H)65 - 99 mg/dL04/27/2025 7:18 AM [facility] LABORATORYCALCIUM7.1(L)8.5 - 10.5 mg/dL04/27/2025 7:18 AM [facility] LABORATORYTOTAL PROTEIN6.06.0 - 8.0 g/dL04/27/2025 7:18 AM [facility] LABORATORYALBUMIN3.23.2 - 5.3 g/dL04/27/2025 7:18 AM [facility] LABORATORYALKALINE ACVRGICFVHG2044 - 130 U/L 04/27/2025 7:18 AM [facility] JEBZSENETEDYD09<=41 U/L106/28/2024 7:18 AM [facility] LABORATORYALT4<=31 U/L106/28/2024 7:18 AM [facility] LABORATORYBILIRUBIN,TOTAL0.2(L)0.3 - 1.2 mg/dL 04/27/2025 7:18 AM [facility] LABORATORYEGFR Non-Race Dependent >90>=60 ml/min/1.73sq.m106/28/2024 7:18 AM [facility] Comment: Reported eGFR is based on the CKD-EPI 2020 equation that does not use a race coefficient. Specimen (Source)Anatomical Location / LateralityCollection Method / Volume Collection TimeReceived TimeBloodVenous blood / UnknownVenipuncture / Unknown 04/27/2025 6:25 AM EST04/27/2025 6:42 AM EST Narrative Authorizing ProviderResult TypeResult StatusTannicdaan Truong [facility] BLOOD ORDERABLESFinal ResultPerforming OrganizationAddressCity/State/ZIP CodePhone Number [facility] [address] [place] [address], * Light Blue Top (04/27/2025 6:24 AM EST) Only the most recent of2 resultswithin the time period is included. ComponentValueRef RangeTest MethodAnalysis TimePerformed AtPathologist Signature Extra TubeAuto Rlsyxewo30/21/2025 8:01 AM [facility] Specimen (Source)Anatomical Location / LateralityCollection Method / Volume Collection TimeReceived TimeBloodVenous blood / Apmelmu6204/27/2025 6:24 AM EST 04/27/2025 6:42 AM EST Narrative Authorizing ProviderResult TypeResult StatusDavid Kya Cook [facility] BLOOD ORDERABLESFinal ResultPerforming OrganizationAddressCity/State/ZIP CodePhone Number [facility] [address] [place] [address], * Molecular Vaginitis Panel PCR (04/27/2025 2:20 AM EST)ComponentValueRef Range Test MethodAnalysis TimePerformed AtPathologist SignatureBacterial Vaginosis DNANot DetectedNot Tkorzbvs93/21/2025 4:27 AM [facility] LABORATORYComment:Indicator DNA target(s) related to bacterial vaginosis organisms, which include: Atopobium vaginae,Atopobium novel species, Megasphaera-1, and Bacterial Vaginosis Associated Bacteria-2 (BVAB-2), is/are Not Detected.Abena species group DNANot DetectedNot Stzxzazb97/21/2025 4:27 AM [facility] LABORATORYComment:Abena group (C. albicans and/or C. tropicalis and/or C. parapsilosis and/or C. dubliniensis) target DNA is Not Detected.Abena glabrata/krusei DNANot DetectedNot Foywjari61/21/2025 4:27 AM [facility] LABORATORYComment:Abena glabrata and/or Abena krusei target DNA is Not Detected.Trichomonas VaginalisNot Detected Not Japgvhvn37/21/2025 4:27 AM [facility]: Trichomonas vaginalis target DNA is Not Detected.Specimen (Source)Anatomical Location / LateralityCollection Method / VolumeCollection TimeReceived Time SwabVaginal structure / Xcrhhwh9104/27/2025 2:20 AM EST04/27/2025 3:19 AM EST Narrative [facility] [place] [facility] - 04/27/2025 4:27 AM EST Assay methodology is nucleic acid amplification by real-time PCR, performed on [employer] GeneXpert Instrument System. Authorizing ProviderResult TypeResult StatusTannice Fogarth MDMICROBIOLOGY - GENERAL ORDERABLESFinal ResultPerforming OrganizationAddressCity/State/ZIP Code Phone Number [facility] [address] [place] [address], [place] [phone] * Chlamydia/GC by PCR Norberto Swab (04/27/2025 2:20 AM EST)ComponentValueRef Range Test MethodAnalysis TimePerformed AtPathologist SignatureCHLAMYDIA DNA(PCR) AdpehcmwBuxbemik08/22/2025 10:39 AM [facility] Comment:Chlamydia trachomatis not detected by nucleic acid amplification. This does not exclude the possibility of infection because results are dependent on adequate specimen collection.GONORRHOEAE DNA(PCR)BgmakdcnTqniuuhp77/22/2025 10:39 AM [facility]ATORYComment:Neisseria gonorrhoeae not detected by nucleic acid amplification. This does not exclude the possibil ity of infection because results are dependent on adequate specimen collection.Specimen (Source)Anatomical Location / LateralityCollection Method / VolumeCollection TimeReceived TimeSwabEndocervical structure / Unknown 04/27/2025 2:20 AM EST04/27/2025 3:19 AM EST Narrative Authorizing ProviderResult TypeResult StatusTannice Fogarthy MDMICROBIOLOGY - GENERAL ORDERABLESFinal ResultPerforming OrganizationAddressCity/State/ZIP Code Phone Number [facility] [address] [place] [address], * Resp Pathogens Panel/SARS CoV-2 (04/27/2025 2:20 AM EST)ComponentValueRef RangeTest MethodAnalysis TimePerformed AtPathologist SignatureSARS COV 2 BY PCRNot DetectedNot Oaavweyd34/21/2025 4:21 AM [facility] LABORATORYADENOVIRUSNot DetectedNot Iolpvfqu41/21/2025 4:21 AM [facility] LABORATORYCORONAVIRUS 229ENot DetectedNot Wkjcbdsd72/21/2025 4:21 AM [facility] LABORATORYCORONAVIRUS UWQ1Rke DetectedNot Jcdttslb07/21/2025 4:21 AM [facility] LABORATORYCORONAVIRUS MU40Orp DetectedNot Qprrujrn40/21/2025 4:21 AM [facility] LABORATORYCORONAVIRUS TI02Ttd DetectedNot Vyelbusy35/21/2025 4:21 AM [facility] LABORATORYHUMAN METAPNEUVIRUSNot DetectedNot Detected 04/27/2025 4:21 AM [facility]ORATORYRHINO/ENTEROVIRUSNot DetectedNot Miqdzyfo54/21/2025 4:21 AM [facility] INFLUENZA ANot DetectedNot Lignvsdr08/21/2025 4:21 AM [facility] LABORATORYINFLUENZA BNot DetectedNot Lmvhrhrs69/21/2025 4:21 AM [facility] LABORATORYPARAINFLUENZA 1Not DetectedNot Detected 04/27/2025 4:21 AM [facility] LABORATORYPARAINFLUENZA 2Not DetectedNot Lgdqnazi28/21/2025 4:21 AM [facility] PARAINFLUENZA 3Not DetectedNot Ikhukdjo33/21/2025 4:21 AM [facility] LABORATORYPARAINFLUENZA 4Not DetectedNot Bqpqoxhb16/21/2025 4:21 AM [facility] LABORATORYRESP SYNCYTIAL VIRUSNot DetectedNot Vmttevip56/21/2025 4:21 AM [facility] LABORATORYBORD PARAPERTUSSISNot DetectedNot Crwumrqx13/21/2025 4:21 AM [facility] LABORATORYBORDETELLA PERTUSSISNot DetectedNot Faeukxhg74/21/2025 4:21 AM [facility] LABORATORYCHLAM.PNEUMONIAENot DetectedNot Irhuwenq02/21/2025 4:21 AM [facility] LABORATORYMYCOPLASMA PNEUMONIAENot DetectedNot Pcwovwgx74/21/2025 4:21 AM [facility] LABORATORYSpecimen (Source)Anatomical Location / LateralityCollection Method / VolumeCollection TimeReceived TimeSwabNasopharyngeal structure / Feysxqd1404/27/2025 2:20 AM EST04/27/2025 3:19 AM [facility] - 04/27/2025 4:21 AM [facility] The [employer] Respiratory Panel 2.1 (RP2.1) is [...] respiratory tract infection. Authorizing ProviderResult TypeResult StatusTannice FogKings Park Psychiatric CenterICROBIOLOGY - GENERAL ORDERABLESFinal ResultPerforming OrganizationAddressCity/State/ZIP Code Phone Number [facility] [address] [place] [address], * Strep B screen (04/27/2025 2:20 AM EST)ComponentValueRef RangeTest Method Analysis TimePerformed AtPathologist SignatureCULTURE RESULTSNEGATIVE FOR GROUP B STREPTOCOCCUS BY NUCLEIC ACID DRLKNKFJPXPII07/22/2025 9:39 AM EST [facility] LABORATORYSpecimen (Source)Anatomical Location / LateralityCollection Method / VolumeCollection TimeReceived TimeSwab (Vagina/Rectum)04/27/2025 2:20 AM EST04/27/2025 3:19 AM EST Narrative Authorizing ProviderResult TypeResult StatusTanSaint Joseph's HospitalROBIOLOGY - GENERAL ORDERABLESFinal ResultPerforming OrganizationAddressCity/State/ZIP Code Phone Number [facility] [address] [place] [address], * Rupture of membrane (ALL) (04/27/2025 1:43 AM EST)ComponentValueRef RangeTest MethodAnalysis TimePerformed AtPathologist SignatureRUPTURE OF UCOWXXCXJvuvemsqWedgyqtv98/21/2025 3:08 AM [facility] LABORATORYSpecimen (Source)Anatomical Location / LateralityCollection Method / VolumeCollection TimeReceived TimeSwabVaginal structure / Gtusyan7704/27/2025 1:43 AM EST04/27/2025 2:13 AM EST Narrative Authorizing ProviderResult TypeResult StatusTansarwat Truong MDBODY FLUIDS AND STOOLS ORDERABLESFinal ResultPerforming OrganizationAddressCity/State/ZIP Code Phone Number [facility] [address] [place] [address], * Hepatitis C Virus Quantitative by NAAT (04/27/2025 12:13 AM EST)ComponentValue Ref RangeTest MethodAnalysis TimePerformed AtPathologist SignatureHCV InterpretationNot DetectedNot Qhlnxunk29/22/2025 10:38 AM [facility] LABORATORYSpecimen (Source)Anatomical Location / LateralityCollection Method / VolumeCollection TimeReceived TimeBloodVenous blood / Unknown Venipuncture / Noiudbz9204/27/2025 12:13 AM EST04/27/2025 12:25 AM EST Narrative Authorizing ProviderResult TypeResult StatusTansarwat HUNTER BLOOD ORDERABLESFinal ResultPerforming OrganizationAddressCity/State/ZIP CodePhone Number [facility] [address] [place] [address], * Syphilis Total (Unknown Syphilis Status) (04/27/2025 12:13 AM EST)Component ValueRef RangeTest MethodAnalysis TimePerformed AtPathologist Signature SYPHILIS TOTAL<0.2<=0.8 AI04/27/2025 7:02 AM [facility] LABORATORYSpecimen (Source)Anatomical Location / LateralityCollection Method / VolumeCollection TimeReceived TimeBloodVenous blood / UnknownVenipuncture / Sgaazlq7104/27/2025 12:13 AM EST04/27/2025 12:25 AM EST Narrative [facility] - 04/27/2025 7:02 AM EST NON REACTIVE No serologic evidence of infection to Treponema pallidum. Repeat testing may be considered in patients with suspected acute or primary syphilis in 2 to 4 weeks. Authorizing ProviderResult TypeResult StatusTansarwat HUNTER BLOOD ORDERABLESFinal ResultPerforming OrganizationAddressCity/State/ZIP CodePhone Number [facility] [address] [place] [address], [place] [phone] * Antibody ID (04/27/2025 12:13 AM EST)ComponentValueRef RangeTest Method Analysis TimePerformed AtPathologist SignatureAntibody IDPassive D Antibody, Patient Received RHIG04/27/2025 2:35 AM ESTTTH BB - WELLSKYSpecimen (Source) Anatomical Location / LateralityCollection Method / VolumeCollection Time Received TimeBloodVenous blood / UnknownVenipuncture / Ugazghq2104/27/2025 12:13 AM EST04/27/2025 12:19 AM EST Narrative Authorizing ProviderResult TypeResult StatusTansarwat Truong MDBLOOD BANK TEST ORDERABLESFinal ResultPerforming OrganizationAddressCity/State/ZIP CodePhone Number [facility] [address] [place] [address], [place] * Type and screen (04/27/2025 12:13 AM EST)ComponentValueRef RangeTest Method Analysis TimePerformed AtPathologist JsvydzkleUZUQ90/21/2025 2:18 AM ESTTTH BB - DJVIBFNOHEfphsetv18/21/2025 2:18 AM ESTTTH BB - WELLSKYAntibody Screen Kgszgfaz83/21/2025 2:18 AM ESTTTH BB - WELLSKYSpecimen (Source)Anatomical Location / LateralityCollection Method / VolumeCollection TimeReceived Time BloodVenous blood / UnknownVenipuncture / Xyrkopa2304/27/2025 12:13 AM EST 04/27/2025 12:19 AM EST Narrative Authorizing ProviderResult TypeResult StatusTansarwat Truong MDBLOOD BANK TEST ORDERABLESEdited Result - FinalPerforming OrganizationAddressCity/State/ZIP Code Phone Number [facility] [address] [place] [address], [place] * PST TOP (04/27/2025 12:08 AM EST)ComponentValueRef RangeTest MethodAnalysis TimePerformed AtPathologist SignatureExtra TubeAuto Rwomhlse28/21/2025 2:02 AM ESTSELECT [facility] LABORATORYSpecimen (Source)Anatomical Location / LateralityCollection Method / VolumeCollection TimeReceived TimeBloodVenous blood / Mznycjy1304/27/2025 12:08 AM EST04/27/2025 12:26 AM EST Narrative Authorizing ProviderResult TypeResult StatusDavid A Cook MDLAB BLOOD ORDERABLESFinal ResultPerforming OrganizationAddressCity/State/ZIP CodePhone Number [facility] [address] [place] [address], [place] [phone] * US MFM OB FOLLOW-UP, 1 FETUS (04/14/2025 9:15 AM EST) Only the most recent of2 resultswithin the time period is included. Anatomical RegionLateralityModalityOB-GYNUltrasoundSpecimen (Source)Anatomical Location / LateralityCollection Method / VolumeCollection TimeReceived Time 04/14/2025 8:13 AM EST Narrative 04/14/2025 9:33 AM EST NAME: ??DESMOND GUTIERREZ : 1990 SEX: F Accession Number: [id number] ORDERING PHYSICIAN: ABIOLA CHRIS REFERRING PHYSICIAN: ABIOLA CHRIS Coding Procedures ? 13249: Ultrasound, uterus, real time with image documentation, [...] (oz) ? 5 oz EFW by: ?Hadlock ([id number]) Extended Tibia ??44.5 mm 27w 3d 67% Bibiana Driller Multiple Spindle ? 3.3 mm CM ? 8.8 mm [...] view. RVOT view. LVOT view. 3-vessel view. 1-nkuaaw-fnirntr view. Situs. Aortic arch view. ? Bicaval [...] GUTIERREZ : 1990 SEX: F Accession Number: [id number] ORDERING PHYSICIAN: ABIOLA CHRIS REFERRING PHYSICIAN: ABIOLA CHRIS Coding Procedures 41712: Ultrasound, uterus, real time with image documentation, [...] EFW (oz) 5 oz EFW by: Hadlock (EJP-XG-RS-FL) Extended Tibia 44.5 mm 27w 3d 67% Bibiana Driller Multiple Spindle 3.3 mm CM 8.8 mm 95% Nicolaides [...] view. RVOT view. LVOT view. 3-vessel view. 7-azfsmv-isagrug view. Situs. Aortic arch view. Bicaval view. [...] TimePerformed AtPathologist SignatureHPV 16NegativeNegative 10/02/2024 2:06 PM [facility] LABORATORYHPV 18Negative Urhcwnkb99/28/2025 2:06 PM [facility] LABORATORYOTHER HIGH RISK VWXCdgdmfxiRhtflozg14/28/2025 2:06 PM [facility] LABORATORYComment:HPV types 31, 33, 35, 39, 45, 52, 56, 58, 59, 66, and 68 DNA were undetectable.Specimen (Source)Anatomical Location / LateralityCollection Method / VolumeCollection TimeReceived TimeThinPrep cytology technique (qualifier value)Cervix uteri structure / Odsmbgw2810/01/2024 1:50 PM EDT 10/02/2024 3:04 AM EDT Narrative Authorizing ProviderResult TypeResult StatusIvory Du HANDICAPPER HARNESS RACING-CNMLAB BLOOD ORDERABLESFinal ResultPerforming OrganizationAddressCity/State/ZIP CodePhone Number [facility] [address] [place] [address], from Last 3 Months or Most Recently Relevant to Health Maintenance Insurance Advance Directives * Full Code (Latest Code Status on File) Date ActivatedDate MeebjvdxyvtZfoddyxc35/21/2025 12:01 AM04/28/2025 1:30 AM * Full Code Date ActivatedDate ZpimyxpawykQxcsqtlz28/19/2024 10:52 PM03/28/2024 11:13 PM * Full Code Date ActivatedDate InactivatedComments12/08/2017 8:05 AM12/10/2017 9:50 AM * Full Code Date ActivatedDate InactivatedComments12/01/2017 8:08 AM12/02/2017 12:35 PM Care Teams Team MemberRelationshipSpecialtyStart DateEnd Date Rebecca Rizvi APRN-JEYSON [address] [place] [phone] PCP - GeneralNurse Practitioner08/23/22
--- OUTSIDE RECORDS SUMMARY | 2025-05-02 10:32 | XMS_ITS | Encounter Summary ---
Author Organization [facility] Address [address] [place] [address] Care Team Providers Care Lion Tamer Name Role Phone Rebecca Rizvi MD Primary Care Provider [phone] Encounter Details DateTypeDepartmentCare Team (Latest Contact Info)Zktobtltpfn13/20/2025linisync Result Encounter [facility] Department Unsolicited Rene Hayden, DO [address] [facility] [address], [facility] Social History Tobacco UseTypesPacks/DayYears UsedDateSmoking Tobacco: Never Assessed Estimated Date of FatzqnymTqchjlvlCgo65/11/2026Based on UltrasoundSex and Gender InformationValueDate RecordedSex Assigned at BirthNot on fileLegal SexFemale 07/20/2022 6:43 PM EDTGender IdentityNot on fileSexual OrientationNot on file documented as of this encounter Plan of Treatment DateTypeDepartmentCare Team (Latest Contact Info)Zxkgcppsmkn33/31/2025 10:20 AM ESTRoutine [facility] PERALTA [address] [place] [address] [place] [address] Jaylin Chung, NATHANIEL [address] [facility] [place] [address] 05/21/2025 3:50 PM ESTRoutine NOMTiffany PERALTA [address] [facility] [place] [address] Rene Hayden DO [address] [place] [address] documented as of this encounter Procedures Procedure NamePriorityDate/TimeAssociated DiagnosisCommentsAMNISURERoutine 04/26/2025 3:25 PM EST [facility] UA (CLEAN/CATCH) FIELD PIPELINES SUPERVISOR/MICRO IF IND.Pntoalr3404/26/2025 3:25 PM EST documented in this encounter [...] CLINISYNC [facility] * (ABNORMAL) [facility] UA (CLEAN/CATCH) FIELD PIPELINES SUPERVISOR/MICRO IF IND. (04/26/2025 3:25 PM EST) ComponentValueRef [...] Team MemberRelationshipSpecialtyStart DateEnd Date Rebecca Rizvi MD [address] [place] [phone] PCP - GeneralFamily Medicine01/03/25documented as of this encounter
--- OUTSIDE RECORDS SUMMARY | 2025-05-02 10:32 | XMS_ITS | Encounter Summary ---
Author Organization [facility] Address [address] [place] [address] Care Team Providers Care Cement Mixer Name Role Phone Rebecca Rizvi MD Primary Care Provider [phone] Encounter Details DateTypeDepartmentCare Team (Latest Contact Info)Qzamaxibimm25/20/2025linisync Result Encounter [facility] External Department Unsolicited Mamadou Hayden, DO [address] [facility] [address] [place], [facility]11 Social History Tobacco UseTypesPacks/DayYears UsedDateSmoking Tobacco: Never Assessed Estimated Date of QgraskslRojouywoAil21/11/2026Based on UltrasoundSex and Gender InformationValueDate RecordedSex Assigned at BirthNot on fileLegal SexFemale 07/20/2022 6:43 PM EDTGender IdentityNot on fileSexual OrientationNot on file documented as of this encounter Plan of Treatment DateTypeDepartmentCare Team (Latest Contact Info)Valnaicxukj37/31/2025 10:20 AM ESTRoutine [facility] PERALTA [address] [place] [address] [place] [address] Jaylin Chung, NATHANIEL [address] [facility] [place] [address] 05/21/2025 3:50 PM ESTRoutine NOMTiffany PERALTA [address] [facility] [place] [address] Mamadou Hayden DO [address] [place] [address] documented as of this encounter Procedures Procedure NamePriorityDate/TimeAssociated DiagnosisCommentsALL CBC WITH AUTO JBTACyzdcxg81/20/2025 6:50 PM EST US OB KRWBXTBT95/20/2025 5:17 PM EST documented in this encounter Results * (ABNORMAL) ALL CBC WITH AUTO DIFF (04/26/2025 6:50 PM EST)ComponentValueRef RangeTest MethodAnalysis TimePerformed AtPathologist SignatureTBH WBC9.14.0 - 11.0 10 3/uLTBHTBH RBC3.77(L)4.20 - 5.40 10 6/uLTBHTBH HGB11.4(L)12.0 - 16.0 g/dLTBHTBH HCT33.1(L)36.0 - 48.0 %TBHTBH MCV87.881.0 - 99.0 fLTBHTBH MCH30.2 26.7 - 34.0 pgTBHTBH MCHC34.429.9 - 35.2 g/dLTBHTBH RDW13.011.0 - 15.0 %TBHTBH ZUQ246079 - 450 10 3/uLTBHTBH MPV10.59.5 - 13.5 [...] EST Narrative 04/26/2025 5:20 PM EST [facility] ?[address] ? [place], [place] [address] ? Ultrasound Report ? Signed ? Patient: ELMES,ESE N ?MR#: [id number] ?? : 1990 ?Acct:[id number] ?? Age/Sex: 34 / F ?ADM Date: 04/26/25 ?? Loc: [facility] ??250-1 ? Attending Dr: Mamadou Hayden D.O. ? Ordering Physician: Mamadou Hayden D.O. ?? Date of Service: 04/26/25 ?? Procedure(s): US OB placenta ?? Accession Number(s): [id number] ? cc: Mamadou Hayden D.O.; Rebecca Rizvi MARTIAL ARTS INSTRUCTOR ? [facility] ? [address] ? [place] [address] ? Patient Name: ?? ESE BADILLO ? MRN: [id number] ? date: 1990 ?Sex: F ?? Assigned Patient Location: [facility] ?? Current Patient Location: [facility] ?? Accession/Order Number: [id number] ?? Exam Date: 04/26/2025 ??16:29 ?Report Date: [...] Dictation Location: RADIO-PC-18 ? Electronically authenticated by: [id number] ??Y ?? Date: 04/26/2025 ??17:17 ? Dictated By: ?Howard Huang M.D. ? Signed By: ?04/26/250 ? DD/ 1717 ? TD/TT: ? Marine Electrician Apprentice: Procedure Note Radiology, Radiologist, MD - 04/26/2025 [place] [address] Ultrasound Report Signed Patient: ESE BADILLO NMR#: [id number] : 1990Acct:[id number] Age/Sex: 34 / FADM Date: 04/26/25 Loc: [facility] 250-[address]: Mamadou Hayden D.O. Ordering Physician: Mamadou Hayden D.O. Date of Service: 04/26/25 Procedure(s): US OB placenta Accession Number(s): [id number] cc: Mamadou Hayden D.O.; Rebecca Rizvi MARTIAL ARTS INSTRUCTOR The [address] [address] Patient Name: ESE BADILLO MRN: [id number] date: 1990 Sex: F Assigned Patient Location: [facility] Current Patient Location: [facility] Accession/Order Number: [id number] Exam Date: 04/26/2025 16:29 Report Date: 04/26/2025 [...] Jr., D.O. 04/26/2025 5:17 PM Dictation Location: [place] [address] Electronically authenticated by: [id number] Y Date: 7:17 Dictated By: Howard Huang M.D. Signed By:04/26/25 172 DD/ 16 TD/TT: Marine Electrician Apprentice: Authorizing ProviderResult TypeResult StatusCorey Jackelyn DOCLINISYNC IMAGINGFinal Result documented in this encounter Visit Diagnoses Not on filedocumented in this encounter Care Teams Team MemberRelationshipSpecialtyStart DateEnd Date Rebecca Rizvi MD [address] [place] [phone] PCP - GeneralFamily Medicine01/03/25documented as of this encounter
--- OUTSIDE RECORDS SUMMARY | 2025-05-02 10:32 | XMS_ITS | Encounter Summary ---
Author Organization [facility] Address [address] [place] [address] Care Team Providers Care Research Attorney Name Role Phone Rebecca Rizvi MD Primary Care Provider [phone] Encounter Details DateTypeDepartmentCare Team (Latest Contact Info)Dqgepqyeqdg78/24/2025linisync Result Encounter [facility] External Department Unsolicited Mamadou Hayden, DO [address] [facility] [address] [place], [facility]11 Social History Tobacco UseTypesPacks/DayYears UsedDateSmoking Tobacco: Never Assessed Estimated Date of CgpeaqdvRltniozzSfz10/11/2026Based on UltrasoundSex and Gender InformationValueDate RecordedSex Assigned at BirthNot on fileLegal SexFemale 07/20/2022 6:43 PM EDTGender IdentityNot on fileSexual OrientationNot on file documented as of this encounter Plan of Treatment DateTypeDepartmentCare Team (Latest Contact Info)Rduohpetpud48/31/2025 10:20 AM ESTRoutine [facility] PERALTA [address] [place] [address] [place] [address] Jaylin Chung, NATHANIEL [address] [facility] [place] [address] 05/21/2025 3:50 PM ESTRoutine NOMTiffany PERALTA [address] [facility] [place] [address] Mamadou Hayden DO [address] [place] [address] documented as of this encounter Procedures Procedure NamePriorityDate/TimeAssociated DiagnosisCommentsUS OB BPP W NON-TIAHAD5904/30/2025 12:06 PM EST documented in this encounter Results * US OB BPP W NON-STRESS (04/30/2025 12:06 PM EST)Anatomical Region LateralityModalityOtherSpecimen (Source)Anatomical Location / Laterality Collection Method / VolumeCollection TimeReceived Time04/30/2025 12:06 PM EST Narrative 04/30/2025 12:08 PM EST [facility] ?[address] ? [place] [address] ? Ultrasound Report ? Signed ? Patient: DESMOND,ESE N ?MR#: [id number] ?? : 1990 ?Acct:[id number] ?? Age/Sex: 34 / F ?ADM Date: 04/30/25 ?? Loc: [facility] ??250-1 ? Attending Dr: Mamadou Hayden D.O. ? Ordering Physician: Mamadou Hayden D.O. ?? Date of Service: 04/30/25 ?? Procedure(s): US OB BPP w non-stress ?? Accession Number(s): [id number] ? cc: Mamadou Hayden D.O.; Rebecca Rizvi CHORE WORKER ? [facility] ? [address] ? [place] [address] ? Patient Name: ?? ESE Brigette DESMOND ? MRN: [facility]:[id number] ? date: 1990 ?Sex: F ?? Assigned Patient Location: [facility] ?? Current Patient Location: [facility] ?? Accession/Order Number: [id number] ?? Exam Date: 04/30/2025 ??11:08 ?Report Date: 04/30/2025 ??12:06 ? At the request of: ?? MAMADOU ??DORCSA ??DO ? Procedure: ??US OB BPP w non-stress ? BIOPHYSICAL PROFILE: ? CLINICAL INFORMATION: Twin gestation with known demise of fetus A ? COMPARISON: 04/26/2025 ? There is a twin with known demise of fetus A. ??Fetus A is in breech ?? . No cardiac activity is documented. ??Fetus B is in cephalic ?? presentation and has a heart rate of ??141 beats per minute. ??The reported ?? gestational age is 29 weeks 0 days. ? FINDINGS (fetus B): ? TONE: 1 or more episodes of activity extension and flexion of ?? extremity or opening and closing of the hand ?[Y] ? 2/2 ?? GROSS BODY MOVEMENTS: 3 or more discrete body or limb movements ?[Y] ? 2/2 ?? BREATHING MOVEMENTS: 1 or more episodes of breathing lasting at ?? least 30 seconds ? [Y] ? 2/2 ?? PAMELA: A single deepest vertical pocket of amniotic fluid greater than 2 cm ? [Y] ? 2/2 ?PAMELA: 13.0 cm ? Total score: ? 8/8 ? US/US OB BPP w non-stress ?? IMPRESSION: ? TWIN WITH DEMISE OF FETUS A. ? NORMAL BIOPHYSICAL PROFILE FOR FETUS B. ? Impression dictated by: Malena Salcido M.D. ??04/30/2025 12:06 PM ? Dictation Location: RADIO-PC-30 ? Electronically authenticated by: [id number] ??Y ?? Date: 04/30/2025 ??12:06 ? Dictated By: ?Malena Salcido M.D. ? Signed By: ?12/24/25 1208 ? DD/ 1206 ? TD/TT: ? Inspection Supervisor: Procedure Note Radiology, Radiologist, MD - 04/30/2025 [place] [address] Ultrasound Report Signed Patient: ESE BADILLO NMR#: [id number] : 1990Acct:[id number] Age/Sex: 34 / FADM Date: 04/30/25 Loc: [facility] 250-[address]: Mamadou Hayden D.O. Ordering Physician: Mamadou Hayden D.O. Date of Service: 04/30/25 Procedure(s): US OB BPP w non-stress Accession Number(s): [id number] cc: Mamadou Hayden D.O.; Rebecca Rizvi NP The [address] [address] Patient Name: ESE BADILLO MRN: [facility]:[id number] date: 1990 Sex: F Assigned Patient Location: [facility] Current Patient Location: [facility] Accession/Order Number: [id number] Exam Date: 04/30/2025 11:08 Report Date: 04/30/2025 12:06 At the request of: MAMADOU HAYDEN DO Procedure: US OB BPP w non-stress BIOPHYSICAL PROFILE: CLINICAL INFORMATION: Twin gestation with known demise of fetus A COMPARISON: 04/26/2025 There is a twin with known demise of fetus A. Fetus A is inbreech . No cardiac activity is documented. Fetus B is in cephalic presentation and has a heart rate of 141 beats per minute. The reported gestational age is 29 weeks 0 days. FINDINGS (fetus B): TONE: 1 or more episodes of activity extension and flexion of extremity or opening and closing of the hand [Y] 2/2 GROSS BODY MOVEMENTS: 3 or more discrete body or limb movements [Y] 2/2 BREATHING MOVEMENTS: 1 or more episodes of breathing lastingat least 30 seconds [Y] 2/2 PAMELA: A single deepest vertical pocket of amniotic fluid greater than 2 cm [Y] 2/2 PAMELA: 13.0 cm Total score: 8/8 US/US OB BPP w non-stress IMPRESSION: TWIN WITH DEMISE OF FETUS A. NORMAL BIOPHYSICAL PROFILE FOR FETUS B. Impression dictated by: Malena Salcido M.D. 04/30/2025 12:06 PM Dictation Location: [place] [address] Electronically authenticated by: [id number] Y Date: 2:06 Dictated By: Malena Salcido M.D. Signed By:04/30/25 1208 DD/ 1206 TD/TT: Inspection Supervisor: Authorizing ProviderResult TypeResult StatusCoreindy Hayden DOCLINISYNC IMAGINGFinal Result documented in this encounter Visit Diagnoses Not on filedocumented in this encounter Care Teams Team MemberRelationshipSpecialtyStart DateEnd Date Rebecca Rizvi MD [address] [place] [phone] PCP - GeneralFamily Medicine01/03/25documented as of this encounter
--- OUTSIDE RECORDS SUMMARY | 2025-05-02 10:32 | XMS_ITS | Encounter Summary ---
Author Organization [facility] Address [address] [place] [address] Care Team Providers Care Stores Naval Name Role Phone Rebecca Rizvi MD Primary Care Provider [phone] Encounter Details DateTypeDepartmentCare Team (Latest Contact Info)Medsdyitgec17/23/2025Telephone [facility] [address] [facility] [place] [address] Evelyn Kee LPN Social History Tobacco UseTypesPacks/DayYears UsedDateSmoking Tobacco: Never Assessed Estimated Date of EuizqpflZpnymwxeYlx40/11/2026Based on UltrasoundSex and Gender InformationValueDate RecordedSex Assigned at BirthNot on fileLegal SexFemale 07/20/2022 6:43 PM EDTGender IdentityNot on fileSexual OrientationNot on file documented as of this encounter Miscellaneous Notes * Telephone Encounter - Evelyn Kee LPN - 04/29/2025 10:02 AM EST 10:02am Called patient as she had called office yesterday and today inquiring about plan of care. Patient voiced that she did leave [facility] AMA due to having other children to [...] that STAT referral would be made to [facility] and that NST/BPP orders would be sent to [facility] if she was unable to schedule with them prior to needing more monitoring. Called and spoke with Gena @ [facility] to inform her of orders and history of patient. Information will also be sent for [facility] in regards to medical history for continuation of care. Sent patient People Capital[employer] Message with information. Patient to reach out to office with any questions/concerns. Evelyn Brannon LPN documented in this encounter Plan of Treatment DateTypeDepartmentCare Team (Latest Contact Info)Hfcjeoohlar23/31/2025 10:20 AM ESTRoutine NOMTiffany PERALTA [address] [facility] [place] [address] Jaylin Chung, ASSEMBLER PING PONG TABLE [address] [facility] [place] [address] 05/21/2025 3:50 PM ESTRoutine NOMTiffany PERALTA [address] [facility] [place] [address] Rene Hayden DO [address] [facility] [place] [address] NameTypePriorityAssociated DiagnosesOrder ScheduleUS biophysical profile w non [...] Team MemberRelationshipSpecialtyStart DateEnd Date Rebecca Rizvi MD [address] [place] [phone] PCP - GeneralFamily Medicine01/03/25documented as of this encounter
--- OUTSIDE RECORDS SUMMARY | 2025-05-02 10:32 | XMS_ITS | Encounter Summary ---
Author Organization [facility] Address [address] [place] [address] Care Team Providers Care Junior Mechanical Engineer Name Role Phone Rebecca Rizvi MD Primary Care Provider Encounter Details DateTypeDepartmentCare Team (Latest Contact Info)Wisterbkned98/23/2025Telephone [facility] [address] [facility] [place] [place] [address] Sosa Funes MA [address] [facility] [place] [address] Social History Tobacco UseTypesPacks/DayYears UsedDateSmoking Tobacco: Never Assessed Estimated Date of VyojheguOdsnnmnnVjr81/11/2026Based on UltrasoundSex and Gender InformationValueDate RecordedSex Assigned [...] his patients and I will let our disability insurance hearing officer know.Pt said ahh yeah. And hung up. I went and advised Evelyn Kee LPN disability insurance hearing officer know of how thispatient spoke and her demands. (Patient every times she calls when I am in the triage is a very rude and disrespectful patient.) documented in this encounter Plan of Treatment DateTypeDepartmentCare Team (Latest Contact Info)Vjbnukkxvku75/31/2025 10:20 AM ESTRoutine NOMTiffany PERALTA [address] [facility] [phone] Jaylin Chung NP [address] [facility] [place] [address] 05/21/2025 3:50 PM ESTRoutine NOMTiffany PERALTA [address] [facility] [phone] Rene Hayden DO [address] [facility] [address] [place], [place] [address] documented as of this encounter Visit Diagnoses Not on filedocumented in this encounter Care Teams Team MemberRelationshipSpecialtyStart DateEnd Date Rebecca Rizvi MD [address] [place] [phone] PCP - GeneralFamily Medicine01/03/25documented as of this encounter
--- OUTSIDE RECORDS SUMMARY | 2025-05-02 10:32 | XMS_ITS | Clinical Summary ---
Author Organization [facility] Address [address] [place] [address], [address] [place] [address] Care Team Providers Care Clay Products Machine Operator Name Role Phone Neto Karen HILARION - SWITCHBOARD WIRE WORKER HELPER Primary Care Provider Unavailable Allergies No known [...] InformationValueDate RecordedSex Assigned at BirthNot on fileLegal BjaVffdsy42/28/2017 11:11 AM ESTGender IdentityNot on fileSexual OrientationNot on file Last Filed Vital Signs Vital SignReadingTime TakenCommentsBlood Iahubtwb266/7601/ 3:41 PM EST Hibxx5079/ 3:41 PM KFYNiostqewgxf77.4 ??C (97.6 ??F)02/19/2020 1:24 PM EDTRespiratory Rate--Oxygen Ukoknhsreh869%06/30/2017 10:28 AM ESTInhaled Oxygen Concentration--Afvvmh71.7 kg (136 lb)06/03/2020 3:41 PM ICXLcmrpx851 cm (5' 3 ) 06/30/2017 10:28 AM ESTBody Mass Index24.0906/30/2017 10:28 AM EST Plan of Treatment Not on file Insurance Care Teams Team MemberRelationshipSpecialtyStart DateEnd Date Karen Duque APRN - SWITCHBOARD WIRE WORKER HELPER PCP - GeneralNurse Lyvvilxprfcq68/19/17
--- OUTSIDE RECORDS SUMMARY | 2025-05-02 10:32 | XMS_ITS | Encounter Summary ---
Author Organization [facility] Address [address] [place] [address] Care Team Providers Care Senior Sales Operations Manager Name Role Phone Rebecca Rizvi MD Primary Care Provider [phone] Encounter Details DateTypeDepartmentCare Team (Latest Contact Info)Bjnioxzbcsz18/17/2025amboo flowsheet NOMTiffany PERALTA [address] [place] [address] Rene Hayden DO [address] [facility] [address] [place], [place] [address] Social History Tobacco UseTypesPacks/DayYears UsedDateSmoking Tobacco: Never Assessed Estimated Date of TxdhggauGvqpuicfZdj98/11/2026Based on UltrasoundSex and Gender InformationValueDate RecordedSex Assigned at BirthNot on fileLegal SexFemale 07/20/2022 6:43 PM EDTGender IdentityNot on fileSexual OrientationNot on file documented as of this encounter Plan of Treatment DateTypeDepartmentCare Team (Latest Contact Info)Xlgkcwnqiqi60/31/2025 10:20 AM ESTRoutine [facility] [place] PER[facility] [address] [place] [address] Jaylin Chung NP [address] [place] [address] 05/21/2025 3:50 PM ESTRoutine NOMTiffany PERALTA [address] [place] [address] Rene Hayden, [address] [place] [address] documented as of this encounter Visit Diagnoses Not on filedocumented in this encounter Care Teams Team MemberRelationshipSpecialtyStart DateEnd Date Rebecca Rizvi MD [address] [place] [phone] PCP - GeneralFamily Medicine01/03/25documented as of this encounter
--- OUTSIDE RECORDS SUMMARY | 2025-05-02 10:32 | XMS_ITS | Encounter Summary ---
Author Organization [facility] [employer] [facility] tem Address [id number] [address] [place] [address] Care Team Providers Care Manager Physical Name Role Phone Rebecca Rizvi BLANCA-CHILD CENTER ASSISTANT Primary Care Provider Encounter Details DateTypeDepartmentCare Team (Latest Contact Info)Pwugwcbyvmc63/24/2025 Documentation Maternal- Medicine at [facility] [address] [place] [phone] Eliza Chinchilla, [facility] [address] [facility] [address] [place] [address] Social History Tobacco UseTypesPacks/DayYears UsedDateSmoking Tobacco: FormerCigarettes0.58.1 Started: 04/05/2017Smokeless Tobacco: NeverAlcohol UseStandard Drinks/Week CommentsNot Currently3 (1 standard drink = 0.6 oz pure alcohol)occasionalAHC UtilitiesAnswerDate RecordedIn the past 12 months has the [employer], gas, oil, or water [employer] threatened to shut off services in your home?No03/28/2024Overall Financial Resource Strain (CARDIA)AnswerDate RecordedHow hard is it for you to pay for the very basics like food, housing, medical care, and heating?Not hard at all05/07/2024HQ-2AnswerDate RecordedTotal Eyngx096PRAPARE - TransportationAnswerDate RecordedIn the past 12 months, has lack of transportation kept you from medical appointments or from getting medications?No 03/28/2024In the past 12 months, has lack of transportation kept you from meetings, work, or from getting things needed for daily living?No03/28/2024 Gary Depression ScaleAnswerDate RecordedEdinburgh Depression Scale Xhzof519The thought of harming myself has occurred to [...] a household?No03/28/2024hildcare AnswerDate RecordedDo problems getting child center assistant make it difficult for you to work or study?No05/07/2024EmploymentAnswerDate RecordedEmploymentUnknown 10/15/2018Hunger ScreeningAnswerDate RecordedWithin the past 12 months we worried whether our food would run out before we got money to buy more.Never True03/11/2025Within the past 12 months the food we bought just didn't last and we didn't have money to get more.Never True03/11/2025Purpose - LifeAnswerDate RecordedPurpose and direction in zujsIawzver93/10/2021Estimated Date of SqzsernaGjjnzpbwSud84/11/2026Based on UltrasoundSex and Gender InformationValue Date RecordedSex Assigned at NhspgHopdik24/02/2022 7:15 PM EDTLegal SexFemale 12/09/2014 2:44 PM EDTGender HhdlmjcxDhtxju75/02/2022 7:15 PM EDTSexual QuxumipbmloUqahsafj84/02/2022 7:15 PM EDTdocumented as of this encounter Progress Notes * Eliza Chinchilla APRN-DANIM - 04/30/2025 10:09 AM EST Received voice message from Ese who stated she had questions about her plan of care. Spoke with patient who had many questions about the plan for her care. Copyholder told her Dr. Lees's recommendation for Dr. Hayden : NSTs 2x/week PAMELA weekly Office appointments weekly with temperature checks. Delivery at 34 weeks due to PROM Patient questioned why - explained staying much past that increases risk of complications and benefits of delivery outweight risk of prolonging . Patient states understanding. Patient unsure if her care is being transferred to [facility]. States Dr. Hayden uncomfortable with delivery before 36 weeks. Copyholder will clarify with Dr. Hayden curry. Patient scheduled for NSTs/ultrasounds 04/30 & 05/02 at [place]. Denies any s/s chorio. Copyholder reviewed s/s, encouraged to watch for fever, chills, abd pain or change in discharge, especially bright red bleeding. If fever or other s/s can come to [place] or [place]. If bleeding go to the nearest hospital with an OB department - [place]. +FM of [facility]. HOMAR Mcelroy 04/30/25 1033 * HOMAR Mcelroy - 04/30/2025 10:09 AM EST Copyholder received call from [facility] that they have received transfer of care for Ese and they will call her to schedule her curry. Copyholder explained current plan in place for NSTs/Ultrasounds this weekat [place]. HOMAR Mcelroy 04/30/25 1033 documented in this encounter Plan of Treatment DateTypeDepartmentCare Team (Latest Contact Info)Jipypkmtztj87/08/2026 8:30 AM ESTAppointment [facility] Imaging [address] [place] [address] 05/15/2025 11:00 AM ESTOffice Visit Maternal- Medicine at [facility] [address] [place] [address] Charlene Lees MD [address], [address] [place] [address] 11/04/2025 4:00 PM EDTOffice Visit [facility] [address] [place] [phone] Rebecca Rizvi APRN-CNP [address] [place] [phone] documented as of this encounter Visit Diagnoses Not on filedocumented in this encounter Additional Health Concerns AssessmentNoted TimePHQ-9 Depression Total Score: 3:04 PM EDTA Body Mass Index follow-up plan has been documented for the gnqmkxr1209/11/2018 4:32 PM EDTdocumented as of this encounter Care Teams Team MemberRelationshipSpecialtyStart DateEnd Date Rebecca Rizvi APRN-CNP [address] [place] [address] PCP - GeneralNurse Practitioner08/23/22documented as of this encounter
--- OUTSIDE RECORDS SUMMARY | 2025-05-02 10:32 | XMS_ITS | Patient Health Record ---
Author Organization [facility] Address [address] [place] [address] Care Team Providers Care Body Press Operator Name Role Phone Dr. Howard Arriaga Primary Care Provider [phone] Erin Guallpa [phone] Reason For Referral No Information Encounters Encounter Location Date Provider Diagnosis [facility] [address] [place] [address] 03/14/2025 Erin Wheeler Acute gingivitis, plaque induced K05.00 ; Other dental procedure status Z98.818 and Encounter for dental examination and cleaning with abnormal findings Z01.21 [facility] [address] [place] [address] 08/22/2024 Erin Wheeler Acute gingivitis, plaque induced [...] 09/26/2025 11:15:00 AM, [address] [place], [address], Insurance Providers Payer Name Payer Address Payer Phone Subscriber Number Group Number Insured Name Patient Relationship to Insured Coverage Start Date Coverage End Date Dental Anthem [place] Medicaid [address] [address] [place] [address] [id number] BRENDA LOGAN Self - patient is the insured Dental Wrap [facility] [address] [place] [id number] LOGANlf - patient is the [id number] 2024
--- OUTSIDE RECORDS SUMMARY | 2025-05-02 10:32 | XMS_ITS | Encounter Summary ---
Author Organization [employer] tem Address [facility] [address] [place] [address] Care Team Providers Care Plastic Sheeting Cutter Name Role Phone Rebecca Rizvi BLANCA-BACKGROUND CHECK COORDINATOR Primary Care Provider Encounter Details DateTypeDepartmentCare Team (Latest Contact Info)Qzarnefoyda10/21/2025Travel Social History Tobacco UseTypesPacks/DayYears UsedDateSmoking Tobacco: FormerCigarettes0.58.1 Started: 04/05/2017Smokeless Tobacco: NeverAlcohol UseStandard Drinks/Week CommentsNot Currently3 (1 standard drink = 0.6 oz pure alcohol)occasionalAHC UtilitiesAnswerDate RecordedIn the past 12 months has the electric, gas, oil, or water [employer] threatened to shut off services in your home?No03/28/2024Overall Financial Resource Strain (CARDIA)AnswerDate RecordedHow hard is it for you to pay for the very basics like food, housing, medical care, and heating?Not hard at all05/07/2024HQ-2AnswerDate RecordedTotal Iqphb820PRAPARE - TransportationAnswerDate RecordedIn the past 12 months, has lack of transportation kept you from medical appointments or from getting medications?No 03/28/2024In the past 12 months, has lack of transportation kept you from meetings, work, or from getting things needed for daily living?No03/28/2024 [place] Depression ScaleAnswerDate RecordedEdinburgh Depression Scale Dkwum940The thought of harming myself has occurred to [...] household?No03/28/2024hildcare AnswerDate RecordedDo problems getting early childhood coordinator make it difficult for you to work or study?No05/07/2024EmploymentAnswerDate RecordedEmploymentUnknown 10/15/2018Hunger ScreeningAnswerDate RecordedWithin the past 12 months we worried whether our food would run out before we got money to buy more.Never True03/11/2025Within the past 12 months the food we bought just didn't last and we didn't have money to get more.Never True03/11/2025Purpose - LifeAnswerDate RecordedPurpose and direction in blmlXzjjote03/10/2021Estimated Date of VllraboiCsmaffwaTcs00/11/2026Based on UltrasoundSex and Gender InformationValue Date RecordedSex Assigned at TwpiqLxyftk38/02/2022 7:15 PM EDTLegal SexFemale 12/09/2014 2:44 PM EDTGender RfgisathFmwqub35/02/2022 7:15 PM EDTSexual LwlmgtaxrraUlidawmv47/02/2022 7:15 PM EDTdocumented as of this encounter Plan of Treatment DateTypeDepartmentCare Team (Latest Contact Info)Jbxvdweswyv54/08/2026 8:30 AM ESTAppointment [facility] [address] [place] [phone] 05/15/2025 11:00 AM ESTOffice Visit Maternal- Medicine at [facility] [address] [place] [phone] Charlene Lees MD [address], [address] [place] [address] [place] [address] 11/04/2025 4:00 PM EDTOffice Visit [facility] [address] [place] [phone] Rebecca Rizvi APRN-CNP [address] [place] [phone] documented as of this encounter Visit Diagnoses Not on filedocumented in this encounter Additional Health Concerns InfectionOnset DateLast IndicatedResolved TimeRespiratory Rule-Out04/27/2025 4:21 AM ESTAssessmentNoted TimePHQ-9 Depression Total Score: 3:04 PM EDTA Body Mass Index follow-up plan has been documented for the dcthpnh6009/11/2018 4:32 PM EDTdocumented as of this encounter Care Teams Team MemberRelationshipSpecialtyStart DateEnd Date Rebecca Rizvi APRN-CNP [address] [place] [phone] PCP - GeneralNurse Practitioner08/23/22documented as of this encounter
--- OUTSIDE RECORDS SUMMARY | 2025-05-02 10:32 | XMS_ITS | Clinical Summary ---
Author Organization [facility] Healthcare Address [address] [place] [address] Care Team Providers Care Head Bucker Name Role Phone Rebecca Rizvi MD Primary Care Provider [phone] Allergies No known active allergies Medications MedicationSigDispense QuantityRefillsLast FilledStart DateEnd DateStatus biotin 5 MG capsule Take 5 mg by mouth in the morning.5Active Docusate Sodium (DSS) 100 MG capsule Indications:Constipation during in second trimester ([facility])Take 1 capsule (100 mg) by mouth in the morning and 1 capsule (100 mg) before bedtime. 60 capsule 5Active Vit-Fe Fumarate-FA ( Vitamins) 28-0.8 MG tablet Indications:Positive urine test ([facility]),, unspecified gestational age ([facility]),Encounter for supervision of normal first in first trimester ([facility])Take 1 tablet by mouth Daily 30 tablet 5Active acetaminophen (Tylenol) 160 MG/5ML liquid Indications:Nonintractable headache, unspecified chronicity pattern, unspecified headache typeTAKE 20.3 ML BY MOUTH EVERY 6 HOURS NEEDED FOR HEADACHES FOR UP TO 10 DAYS Strength: 160 MG/5ML 120 mL 5Active famotidine (Pepcid) 20 MG tablet Indications:Heartburn during in second trimester ([facility])Take 2 tablets (40 mg) by mouth in the morning. 60 tablet 6Active famotidine (Pepcid) 20 MG tablet Indications:Heartburn during in second trimester ([facility])Take 1 tablet (20 mg) by [...] MG tablet Indications:Heartburn during in second trimester ([facility])Take 2 tablets (40 mg) by mouth in the morning. 60 tablet Discontinued(Reorder) Active Problems ProblemNoted DateDiagnosed DateMultigravida of advanced maternal age in second trimester ([facility])03/13/2025H/O LEEP105/13/2024HSV (herpes simplex virus) leuavixno25/06/2025arrier of genetic defect for kwfwpungdcre28/06/2025Twin gestation in second trimester ([facility])03/13/2025Estimated Date of KxyttvwqInmmgvniTcz50/11/2026Based on Ultrasound Encounters DateTypeDepartmentCare QkhrSaumljutufk75/24/2025linisync Result Encounter [facility]OM[facility] External Department Unsolicited Mamadou [place], DO 04/29/2025Telephone [facility] [place] OBASHTYNN [address] [facility] [facility] [place] [address] Evelyn Kee LPN 04/29/2025Telephone [facility] [place] OBNICKY [address] [facility] [place] [address] Sosa Funes MA 04/26/2025linisync Result Encounter NOMS External Department Unsolicited Mamadou [place]den, DO 04/26/2025linisync Result Encounter NOMS External Department Unsolicited Mamadou [place]den, DO 04/26/2025linisync Result Encounter NOMS External Department Unsolicited Mamadou [place]den, DO 04/23/2025 1:40 PM ESTRoutine [facility] [address] [facility] [place] [address] Mamadou Hayden, DO Third trimester ([facility]); 28 weeks gestation of ([facility]); Multigravida of advanced maternal age in second trimester ([facility]); Twin following selective reduction, antepartum ([facility]) 04/23/2025amboo flowsheet [facility] [address] [facility] [facility] [place] [address] Mamadou [place], DO 04/16/2025Telephone [facility] [place] [facility] [address] [facility] [facility] [place] [address] Sosa Funes MA 04/15/2025Refill [facility] [place] [facility] [address] [facility] [place] [address] Sosa Funes MA Heartburn during in second trimester ([facility])04/14/2025Telephone [facility] [place] [facility] [address] [facility] [place] [address] Janett Zheng PA 04/10/2025 1:30 PM ESTRoutine [facility] [address] [facility] [place] [address] Janett Zheng PA Second trimester ([facility]); 26 weeks gestation of ([facility])04/10/2025linisync Result Encounter NOMS External Department Unsolicited Mamadou [place], DO 04/10/2025amboo flowsheet [facility] [address] [facility] [place] [address] Janett Zheng PA 04/08/2025Telephone [facility] [address] [facility] [place] [address] Evelyn Kee, JAYESH 03/18/2025bstract [facility] [address] [place] [address] Janett Limon, TERRITORY DEVELOPMENT MANAGER 03/13/2025 9:50 AM ESTRoutine [facility] [address] 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 [address] Janett Limon, TERRITORY DEVELOPMENT MANAGER 03/13/2025amboo flowsheet [facility] [place] [facility] [address] [facility] [place] [address] Mamadou [place], DO 03/12/2025bstract [facility] [address] [facility] [place] [address] Mamadou [place], DO 03/11/2025External Result Encounter [facility] [address] [facility] [place] [address] Mamadou [place], DO 03/04/2025linisync Result Encounter NOMS External Department Unsolicited Mamadou [place], DO 02/20/2025Refill [facility] [address] [facility] [place] [address] Janett Zheng PA Nonintractable headache, unspecified chronicity pattern, unspecified headache type02/20/2025Telephone [facility] [place] [facility] [address] [facility] [place] [address] Mamadou [place], DO 02/19/2025bstract [facility] [place] [address] [facility] [place] [address] Mamadou [place], DO 02/19/2025bstract [facility] [place] [facility] [address] [facility] [place] [address] Mamadou [place], DO 02/12/2025 3:20 PM EDTRoutine [facility] [address] [facility] [place] [address] Jaylin Chung, NATHANIEL Second trimester ([facility]); 18 weeks gestation of ([facility])5Clinisync Result Encounter NOMS External Department Unsolicited Mamadou [place], DO 02/12/2025amboo flowsheet [facility] [address] [facility] [place] [address] Jaylin Chung, NATHANIEL 02/10/2025Telephone [facility] [address] [facility] [place] [address] Sosa Funes MA from Last 3 Months Social History Tobacco UseTypesPacks/DayYears UsedDateSmoking Tobacco: Never Assessed Estimated Date of TydoxswkFkmikgzdMnt22/11/2026Based on UltrasoundSex and Gender InformationValueDate RecordedSex Assigned at BirthNot on fileLegal SexFemale 07/20/2022 6:43 PM EDTGender IdentityNot on fileSexual OrientationNot on file Last Filed Vital Signs Vital SignReadingTime TakenCommentsBlood Pbswypsa475/7004/23/2025 1:54 PM EST Pulse--Temperature--Respiratory Rate--Oxygen Saturation--Inhaled Oxygen Concentration--Fnevck59.9 kg (185 lb)04/23/2025 1:54 PM ESTHeight--Body Mass Index-- Plan of Treatment DateTypeDepartmentCare Team (Latest Contact Info)Qpiwsrfpoaz39/31/2025 10:20 AM ESTRoutine [facility] PERALTA [address] [facility] [place] [address] Jaylin Chung, WELLFIELD TECHNICIAN [address] [place] [address] [place] [address] 05/21/2025 3:50 PM ESTRoutine [facility] PERALTA [address] [facility] [place] [address] Mamadou [place]den DO [address] [place] [address] Procedures Procedure NamePriorityDate/TimeAssociated DiagnosisCommentsUS OB BPP W NON-VMMHCQ8104/30/2025 12:06 PM EST ALL CBC WITH AUTO HKZTZqjbdbv56/20/2025 6:50 PM EST US OB VEYRHAIO58/20/2025 5:17 PM EST US OB CERVICAL EHOVBY3604/26/2025 5:17 PM EST OKEWJFJKEnrxdis41/20/2025 3:25 PM EST [facility] UA (CLEAN/CATCH) SUPERVISOR FINISHING ROOM/MICRO IF IND.Hkquznq2404/26/2025 3:25 PM EST POCT URINALYSIS QYHETNDWXkseaqy74/17/2025 2:02 PM EST 28 weeks gestation of ([facility]) GLUCOSE 1 HGGOPrdrsun94/04/2025 1:29 PM EST ALL CBC WITH AUTO SBCSUgredpp96/04/2025 1:29 PM EST RECURRENT VAGINITIS (HTRX)Docqaxq2003/13/2025 11:37 AM EST POCT URINALYSIS ZNQTMRWOXckktkm56/06/2025 10:18 AM EST Second trimester ([facility]) US OB 14+ WEEKS ANATOMY SCAN03/11/2025 3:30 PM EST ALL MISCELLANEOUS EPEOAplgpgs46/28/2025 12:49 PM EDT ALL VITAMIN B4Lvzslay47/08/2025 5:26 PM EDT AFP, SERUM, OPEN SPINA RQUNGWOhxqngj47/08/2025 5:26 PM EDT BOX AYNQNaqnlvv68/08/2025 5:26 PM EDT from Last 3 Months Results * US OB BPP W NON-STRESS (04/30/2025 12:06 PM EST)Anatomical Region LateralityModalityOtherSpecimen (Source)Anatomical Location / Laterality Collection Method / VolumeCollection TimeReceived Time04/30/2025 12:06 PM EST Narrative 04/30/2025 12:08 PM EST [facility] ?[address] ? [place] [address] ? Ultrasound Report ? Signed ? Patient: MADI LOGAN ?MR#: [id number] ?? : 1990 ?Acct:[id number] ?? Age/Sex: 34 / F ?ADM Date: 04/30/25 ?? Loc: [facility] ??250-1 ? Attending Dr: Mamadou Hayden D.O. ? Ordering Physician: Mamadou Hayden D.O. ?? Date of Service: 04/30/25 ?? Procedure(s): US OB BPP w non-stress ?? Accession Number(s): [id number] ? cc: Mamadou Hayden D.O.; Rebecca Rizvi WELLFIELD TECHNICIAN ? [facility] ? [address] ? [place] [address] ? Patient Name: ?? MADI LOGAN ? MRN: [facility]:[id number] ? date: 1990 ?Sex: F ?? Assigned Patient Location: [facility] ?? Current Patient Location: [facility] ?? Accession/Order Number: [id number] ?? Exam Date: 04/30/2025 ??11:08 ?Report Date: 04/30/2025 ??12:06 ? At the request of: ?? MAMADOU ??JACKELYN ??DO ? Procedure: ??US OB BPP w [...] Dictation Location: RADIO-PC-30 ? Electronically authenticated by: [id number] ??Y ?? Date: 04/30/2025 ??12:06 ? Dictated By: ?Malena Salcido M.D. ? Signed By: ?04/30/25 1208 ? DD/ 1206 ? TD/TT: ? Swimmer: Procedure Note Radiology, Radiologist, MD - 04/30/2025 [place] [address] Ultrasound Report Signed Patient: MADI LOGAN#: [id number] : 1990Acct:[id number] Age/Sex: 34 / FADM Date: 04/30/25 Loc: [facility] 250-[address]: Mamadou [place] D.O. Ordering Physician: Mamadou [place] D.O. Date of Service: 04/30/25 Procedure(s): US OB BPP w non-stress Accession Number(s): [id number] cc: Mamadou [place] D.O.; Rebecca Rizvi NP [place] [id number] Patient Name: MADI LOGAN MRN: [id number] date: 1990 Sex: F Assigned Patient Location: [facility] Current Patient Location: [facility] Accession/Order Number: [id number] Exam Date: 04/30/2025 11:08 Report Date: 04/30/2025 [...] Salcido M.D. 04/30/2025 12:06 PM Dictation Location: [place] [address] Electronically authenticated by: [id number] Y Date: 2:06 Dictated By: Malena Salcido M.D. Signed By:04/30/25 1208 DD/ 05 TD/TT: Swimmer: Authorizing ProviderResult TypeResult StatusCorey Jackelyn DOCLINISYNC IMAGINGFinal Result * (ABNORMAL) ALL CBC WITH AUTO DIFF [...] - 35.2 g/dLTBHTBH RDW13.011.0 - 15.0 %TBHTBH EMD823613 - 450 10 3/uLTBHTBH MPV10.59.5 - 13.5 [...] EST Narrative 04/26/2025 5:20 PM EST [facility] ?[address] ? [place] [address] ? Ultrasound Report ? Signed ? Patient: ELMES,MADI N ?MR#: [id number] ?? : 1990 ?Acct:[id number] ?? Age/Sex: 34 / F ?ADM Date: 04/26/25 ?? Loc: [facility] ??250-1 ? Attending Dr: Mamadou [place]den D.O. ? Ordering Physician: Mamadou [place]den D.O. ?? Date of Service: 04/26/25 ?? Procedure(s): US OB placenta ?? Accession Number(s): [id number] ? cc: Mamadou [place]den D.O.; Rebecca Rizvi WELLFIELD TECHNICIAN ? [facility] ? [address] ? [place] [address] ? Patient Name: ?? MADI LOGAN ? MRN: [facility]:[id number] ? date: 1990 ?Sex: F ?? Assigned Patient Location: [facility] ?? Current Patient Location: [facility] ?? Accession/Order Number: [id number] ?? Exam Date: 04/26/2025 ??16:29 ?Report Date: [...] Dictation Location: RADIO-PC-18 ? Electronically authenticated by: [id number] ??Y ?? Date: 04/26/2025 ??17:17 ? Dictated By: ?Howard Huang M.D. ? Signed By: ?04/26/ 1720 ? DD/ 1717 ? TD/TT: ? Swimmer: Procedure Note Radiology, Radiologist, - 04/26/2025 [place] [address] Ultrasound Report Signed Patient: MADI LOGAN NMR#: [id number] : 1990Acct:[id number] Age/Sex: 34 / FADM Date: 04/26/25 Loc: [facility] 250-[address]: Mamadou [place] D.O. Ordering Physician: Mamadou [place] D.O. Date of Service: 04/26/25 Procedure(s): US OB placenta Accession Number(s): [id number] cc: Mamadou [place] D.O.; Rebecca Rizvi WELLFIELD TECHNICIAN The [place] [address] Patient Name: MADI LOGAN MRN: [facility]:[id number] date: 1990 Sex: F Assigned Patient Location: [facility] Current Patient Location: [facility] Accession/Order Number: [id number] Exam Date: 04/26/2025 16:29 Report Date: 04/26/2025 [...] abnormality. Normal cervical length. Impression dictated by: Isabel Jeffery Jr.OArmiad 04/26/2025 5:17 PM Dictation Location: [facility]-PC-18 Electronically authenticated by: [id number] Y Date: 7:17 Dictated By: Howard Huang M.D. Signed By:04/26/251719 DD/ 16 TD/TT: Swimmer: Authorizing ProviderResult TypeResult StatusCorey Jackelyn DOCLINISYNC IMAGINGFinal Result * US OB CERVICAL LENGTH (04/26/2025 5:17 PM EST)Anatomical RegionLaterality ModalityOtherSpecimen (Source)Anatomical Location / LateralityCollection Method / VolumeCollection TimeReceived Time04/26/2025 5:17 PM EST Narrative 04/26/2025 5:20 PM EST [facility] ?[address] ? [place] [address] ? Ultrasound Report ? Signed ? Patient: MADI LOGAN N ?MR#: [id number] ?? : 1990 ?Acct:[id number] ?? Age/Sex: 34 / F ?ADM Date: 04/26/25 ?? Loc: [facility] ??250-1 ? Attending Dr: Mamadou [place] D.O. ? Ordering Physician: Mamadou [place] D.O. ?? Date of Service: 04/26/25 ?? Procedure(s): US OB cervical length ?? Accession Number(s): [id number] ? cc: Mamadou [place] D.O.; Rebecca Rizvi WELLFIELD TECHNICIAN ? [facility] ? [address] ? [place] [address] ? Patient Name: ?? MADI LOGAN ? MRN: [facility]:[id number] ? date: 1990 ?Sex: F ?? Assigned Patient Location: [facility] ?? Current Patient Location: [facility] ?? Accession/Order Number: [id number] ?? Exam Date: 04/26/2025 ??16:20 ?Report Date: [...] ? Impression dictated by: Howard Huang Jr., D.OArmida ??04/26/2025 5:17 PM ? Dictation Location: RADIO-PC-18 ? Electronically authenticated by: [id number] ??Y ?? Date: 04/26/2025 ??17:17 ? Dictated By: ?Howard Huang M.D. ? Signed By: ?04/26/250 ? DD/ 1717 ? TD/TT: ? Swimmer: Procedure Note Radiology, Radiologist, MD - 04/26/2025 [place] [address] Ultrasound Report Signed Patient: MADI LOGAN NMR#: [id number] : 1990Acct:[id number] Age/Sex: 34 / FADM Date: 04/26/25 Loc: [facility] 250-[address]: Mamadou [place] D.O. Ordering Physician: Mamadou [place] D.O. Date of Service: 04/26/25 Procedure(s): US OB cervical length Accession Number(s): [id number] cc: Mamadou [place] D.O.; Rebecca Rizvi WELLFIELD TECHNICIAN The [address] [address] Patient Name: MADI LOGAN MRN: [facility]:[id number] date: 1990 Sex: F Assigned Patient Location: [facility] Current Patient Location: [facility] Accession/Order Number: [id number] Exam Date: 04/26/2025 16:20 Report Date: 04/26/2025 [...] Jr., D.O. 04/26/2025 5:17 PM Dictation Location: [place] [address] Electronically authenticated by: [id number] Y Date: 7:17 Dictated By: Howard Huang M.D. Signed By:04/26/251719 DD/ 16 TD/TT: Swimmer: Authorizing ProviderResult TypeResult StatusCorey Jackelyn DOCLINISYNC IMAGINGFinal [...] CLINISYNC [facility] * (ABNORMAL) [facility] UA (CLEAN/CATCH) SUPERVISOR FINISHING ROOM/MICRO IF IND. (04/26/2025 3:25 PM EST) ComponentValueRef [...] DOCLINISYNCFinal Result Performing OrganizationAddressCity/State/ZIP CodePhone Number CLINISYNC TB * (ABNORMAL) POCT urinalysis dipstick manually resulted [...] / Laterality Collection Method / VolumeCollection TimeReceived NsinPilnf04/17/2025 2:02 PM EST Narrative Authorizing ProviderResult TypeResult StatusCorey Jackelyn DOPOINT OF CARE TEST ENTER/EDIT ORDERABLESFinal Result * GLUCOSE 1 HOUR (04/10/2025 1:29 PM EST)ComponentValueRef RangeTest Method Analysis TimePerformed AtPathologist SignatureGLUCOSE 1 SRFD272<130 mg/dLTBH Specimen (Source)Anatomical Location / LateralityCollection Method [...] ppm03/14/2025 7:09 AM ESTHealthTrackRx at LabPortATOPOBIUM VAGINAENot Avravcea21.961 - 24.689 ppm03/14/2025 7:09 AM ESTHealthTrackRx at LabPortBVAB 2,3 (BACTERIAL VAGINOSIS ASSOCIATED BACTERIA 2, 3); MOBILUNCUS SPP 019.961 - 24.689 ppm03/14/2025 7:09 AM ESTHealthTrackRx at LabPortBVAB 2,3 (BACTERIAL VAGINOSIS ASSOCIATED BACTERIA 2, 3); MOBILUNCUS SPPNot Detected 19.961 - 24.689 ppm03/14/2025 7:09 AM ESTHealthTrackRx at LabPortCANDIDA ALBICANS, PARAPSILOSIS, ZNELWDKHJO744.000 - 30.347 ppm03/14/2025 7:09 AM EST [facility] at LabPortCANDIDA ALBICANS, PARAPSILOSIS, TROPICALISNot Detected 23.000 - 30.347 ppm03/14/2025 7:09 AM ESTHealthTrackRx at LabPortCANDIDA TDLYIYMZ322.000 - 31.618 ppm03/14/2025 7:09 AM ESTHealthTrackRx at LabPort BRAN GLABRATANot Vwxrfeeu69.000 - 31.618 ppm03/14/2025 7:09 AM EST [facility] at LabPortCANDIDA FNBQPO738.000 - 30.873 ppm03/14/2025 7:09 AM ESTHealthTrackRx at LabPortCANDIDA KRUSEINot Tcbhndro19.000 - 30.873 ppm 03/14/2025 7:09 AM ESTHealthTrackRx at LabPortCHLAMYDIA GAIAINRIUZD831.000 - 31.586 ppm03/14/2025 7:09 AM ESTHealthTrackRx at LabPortCHLAMYDIA TRACHOMATIS Not Rcrywqpr50.000 - 31.586 ppm03/14/2025 7:09 AM ESTHealthTrackRx at LabPort GARDNERELLA YTRKQBNYP765.961 - 24.689 ppm03/14/2025 7:09 AM ESTHealthTrackRx at LabCommunity [facility] HealthGARDNERELLA VAGINALISNot Zwbajneb63.961 - 24.689 ppm03/14/2025 7:09 AM ESTHealthTrackRx at LabPortMEGASPHAERA (TYPES 1, 2)019.961 - 24.689 ppm 03/14/2025 7:09 AM ESTHealthTrackRx at LabPortMEGASPHAERA (TYPES 1, 2)Not Flyksxsi23.961 - 24.689 ppm03/14/2025 7:09 AM ESTHealth[facility]Rx at [facility] NEISSERIA HLALOPOGKOS445.000 - 32.587 ppm03/14/2025 7:09 AM ESTHealthTrackRx at LabCommunity [facility] HealthNEISSERIA GONORRHOEAENot Sdhiuifn94.000 - 32.587 ppm03/14/2025 7:09 AM ESTHealth[facility]Rx at LabCommunity [facility] HealthTRICHOMONAS JYKBRPVTZ836.000 - 31.995 ppm 03/14/2025 7:09 AM ESTHealthTrackRx at LabCommunity [facility] HealthTRICHOMONAS VAGINALISNot Xuzqjaxi33.000 - 31.995 ppm03/14/2025 7:09 AM ESTHealth[facility]Rx at [facility] MYCOPLASMA ZONSRCNXNY301.961 - 24.689 ppm03/14/2025 7:09 AM ESTHealthTrackRx at LabPortMYCOPLASMA GENITALIUMNot Wswjiwre42.961 - 24.689 ppm03/14/2025 7:09 AM ESTHealthTrackRx at LabPortSpecimen (Source)Anatomical Location / LateralityCollection Method / VolumeCollection TimeReceived TimeTissue 03/13/2025 11:37 AM EST03/14/2025 1:59 AM EST Narrative Authorizing ProviderResult TypeResult StatusCorey Jackelyn DOLAB BLOOD ORDERABLES Final ResultPerforming OrganizationAddressCity/State/ZIP CodePhone Number [facility] [address] [address] * US OB 14+ weeks anatomy scan (03/11/2025 3:30 PM EST)Anatomical Region LateralityModalityBodyUltrasoundSpecimen (Source)Anatomical Location / LateralityCollection Method / VolumeCollection TimeReceived Time03/11/2025 3:30 PM EST Narrative 03/11/2025 3:30 PM EST THIS EXAM WAS PERFORMED AT [facility] NAME: ??DESMOND GUTIERREZ : 1990 SEX: F Accession Number: [id number] ORDERING PHYSICIAN: MAMADOU HAYDEN REFERRING PHYSICIAN: MAMADOU HAYDEN Coding Procedures ? 67036: Ultrasound, uterus, real time with image documentation, and maternal evaluation ? plus detailed anatomic examination, transabdominal approach;single or first gestation. 2 ? 08599: Ultrasound, uterus, real time with image documentation, [...] view: limited by position and activity. Medical Icing Machine Operator Icing Machine Operator declined Twin . Number of fetuses: 2. [...] (oz) ? 14 oz EFW by: ?Hadlock (MWD-NJ-MK-FL) Extended Tibia ??31.1 mm 21w 3d 40% [employer]iana [employer] Intelligence Officer Chief ? 10.4 mm CM ? 3.6 mm [...] (oz) ? 2 oz EFW by: ?Hadlock (IJV-MP-NQ-FL) Extended Tibia ??32.2 mm 21w 6d 57% Bibiana [employer] Intelligence Officer Chief ? 5.4 mm CM ? 6.0 mm [...] Face: Orbits. Heart/Thorax: 4-chamber view. 3-vessel view. 3-njcsto-qhjsueg view. Situs. Aortic arch view. Bicaval view. [...] Lips. Nose. Heart / Thorax 4-chamber view. 8-cikclh-cowdcmo view. Situs. Aortic arch view. Cardiac rhythm. [...] Total discordance is 19.5% Recommendations Please see [facility] documentation from today. The patient is scheduled in four to six week(s) to complete anatomic survey. Subsequent follow up or other follow up as clinically determined by primary OB provider unless otherwise specified by [facility]. Results forwarded to ordering provider so they can follow up with the patient as necessary. Procedure Note Radiology, Radiologist, - 03/11/2025 THIS EXAM WAS PERFORMED AT [facility] NAME: DESMOND GUTIERREZ : 1990 SEX: F Accession Number: [id number] ORDERING PHYSICIAN: MAMADOU HAYDEN REFERRING PHYSICIAN: MAMADOU [place] Coding Procedures 08857: Ultrasound, uterus, real time with image documentation, and maternal evaluation plus detailed anatomic examination, transabdominalapproach;single or first gestation. 2 [address]88: Ultrasound, uterus, real time with imagedocumentation, transvaginal [...] Suboptimalview: limited by position and activity. Medical Icing Machine Operator Icing Machine Operator declined Twin . Number of fetuses: 2. [...] EFW (oz) 14 oz EFW by: Hadlock (LHN-PE-PS-FL) Extended Tibia 31.1 mm 21w 3d 40% Bibiana [employer] Intelligence Officer Chief 10.4 mm CM 3.6 mm 5% Nicolaides [...] EFW (oz) 2 oz EFW by: Hadlock (GCU-IE-ME-FL) Extended Tibia 32.2 mm 21w 6d 57% Bibiana [employer] Intelligence Officer Chief 5.4 mm CM 6.0 mm 68% Nicolaides [...] Face: Orbits. Heart/Thorax: 4-chamber view. 3-vessel view. 0-minoqy-yvvmxur view. Situs.Aortic arch view. Bicaval view. Cardiac [...] Lips. Nose. Heart / Thorax 4-chamber view. 7-ypoldq-clieiot view. Situs. Aortic archview. Cardiac rhythm. Abdomen [...] as necessary. Authorizing ProviderResult TypeResult StatusCorey Jackelyn HOLLANDMG OB US PROCEDURES Final Result * ALL MISCELLANEOUS TEST (03/04/2025 12:49 PM EDT)ComponentValueRef RangeTest MethodAnalysis TimePerformed AtPathologist SignatureMISCELLANEOUS TESTCOMMENT. TBHComment: Test Ordered: [id number] Aaxpdxntw-5-Cxrvovihp, RBC Qecygxrpp-0-Tsenajzsq, RBC <0.3 mg/dL ML ?? Reference Range: . REFERENCE VALUE Reference interval (normal range): <=0.9 Therapeutic range: <=4.9 ADDITIONAL INFORMATION Liquid Chromatography-Tandem Mass Spectrometry (LC-MS/MS) This test was developed and its performance characteristics determined by [facility] in a manner consistent with CLIA requirements. This test has not been cleared or approved by the U.S. Food and Drug Administration. Performed at: ??[facility] [facility] [address] ??[id number] Pediatric Np: Kellen De La Paz PhD, Phone: ??[phone] Performed at: ??[facility] ??[id number] Pediatric Np: Jose Rainey PhD, Phone: ??[phone] Specimen (Source)Anatomical Location / LateralityCollection Method / Volume Collection TimeReceived Time03/04/2025 12:49 PM EDT1 12:59 PM EDT Narrative CLINISYNC - 03/14/2025 5:09 PM EST [id number]-[id number]-Rqidmhgde, RBC Authorizing ProviderResult TypeResult StatusCorey Jackelyn DOCLINISYNCFinal Result Performing OrganizationAddressCity/State/ZIP CodePhone Number [facility] * BOX TEST (02/12/2025 5:26 PM EDT)ComponentValueRef RangeTest MethodAnalysis TimePerformed AtPathologist SignatureBOX TEST SENT [id number] 02/12/2025TBHSpecimen (Source)Anatomical Location / LateralityCollection Method / VolumeCollection TimeReceived Time02/12/2025 5:26 PM EDT1 5:46 PM EDT Narrative FARNAZ - 02/12/2025 5:59 PM EDT Authorizing ProviderResult TypeResult StatusCorey Jackelyn DOLAB BLOOD ORDERABLES Final ResultPerforming OrganizationAddressCity/State/ZIP CodePhone Number FARNAZ [facility] * AFP, SERUM, OPEN SPINA BIFIDA (02/12/2025 5:26 PM EDT)ComponentValueRef Range Test MethodAnalysis TimePerformed AtPathologist SignatureRESULTSReport.TBHTEST RESULTS:*Screen Negative*.TBHGEST. AGE ON COLLECTION DATE18.0. weeksTBH GESTAT. AGE BASED ONUltrasound.TBHComment: ?18.0 on 02/12/2025 Recalculations are not recommended when gestational dating by LMP and ultrasound are within 10 days. MATERNAL AGE AT EDD35.7. yrTBHRACECaucasian.GSYATUPUH844. lbsTBHINSULIN DEP DIABETESNo.TBHMULTIPLE GESTATIONTwins.TBHAFP RFKGS170.6. ng/mLTBHAFP MOM3.18.TBH OSBR RISK 1 IN304.TBHINTERPRETATIONComment.TBHComment: Interpretation: [...] Customer Services to discuss available options. ??The [employer] recommends amniocentesis be offered to women age 35 and older. COMMENT:Comment.TBHComment: Kenia Schreiber, Ph.D., [facility] Director References: Available Upon Request. Multiples Of Median Cutoffs ?For AFP Elevations Palmer ?? 2.5 ? Black ?2.8 IDD ? 2.0 ? Twins ?4.5 ?Abbreviation Definitions IDD - Insulin Dep Diabetes OSBR - Open Spina Bifida Risk For further inquiries contact [facility] at [phone]. This test was developed and its performance characteristics determined by [employer]. It has not been cleared or approved by the Food and Drug Administration. Performed at: ??[facility] - [place] [address] [place], [place] ??[id number] Pediatric Np: Steven Bernard [facility], Phone: ??[phone] Specimen (Source)Anatomical Location / LateralityCollection Method / Volume Collection TimeReceived Time02/12/2025 5:26 PM EDT1 5:46 PM EDT Narrative CLINISYNC - 02/15/2025 1:06 AM EDT N N ULTRASOUND [id number] 18 N 2 172 N N N N N White/ Authorizing ProviderResult TypeResult StatusCorey Jackelyn DOLAB BLOOD ORDERABLES Final ResultPerforming OrganizationAddressCity/State/ZIP CodePhone Number [facility]INISYAZ [facility] * ALL VITAMIN B6 (02/12/2025 5:26 PM EDT)ComponentValueRef RangeTest Method Analysis TimePerformed AtPathologist SignatureVITAMIN B6, HDPGBF91.43.4 - 65.2 ug/LTBHComment: This test was developed and its performance characteristics determined by [employer]. It has not been cleared or approved by the Food and Drug Administration. Deficiency: <3.4 ? Marginal: ?3.4 - 5.1 Adequate: >5.1 Performed at: ??[facility] - [address] ??[id number] Pediatric Np: Dea Amaya MD, Phone: ??[phone] Specimen (Source)Anatomical Location / LateralityCollection Method / Volume Collection TimeReceived Time02/12/2025 5:26 PM EDT1 5:46 PM EDT Narrative CLINISYNC - 02/17/2025 4:09 PM EDT Authorizing ProviderResult TypeResult StatusCorey Jackelyn DOCLINISYNCFinal Result Performing OrganizationAddressCity/State/ZIP CodePhone Number [facility] from Last 3 Months Insurance Care Teams Team MemberRelationshipSpecialtyStart DateEnd Rebecca Rizvi MD [address] [place] [address] PCP - GeneralFamily Medicine01/03/25
--- OUTSIDE RECORDS SUMMARY | 2025-05-02 10:32 | XMS_ITS | Encounter Summary ---
Author Organization [facility] Address [address] [place] [address] Care Team Providers Care Agriculture Teacher Name Role Phone Rebecca Rizvi MD Primary Care Provider [phone] Encounter Details DateTypeDepartmentCare Team (Latest Contact Info)Xqvbazvnura42/20/2025linisync Result Encounter [facility] Department Unsolicited Mamadou Hayden, DO [address] [facility] [address] [place], [facility] Social History Tobacco UseTypesPacks/DayYears UsedDateSmoking Tobacco: Never Assessed Estimated Date of EilfxkpsWfdzmgmuVte48/11/2026Based on UltrasoundSex and Gender InformationValueDate RecordedSex Assigned at BirthNot on fileLegal SexFemale 07/20/2022 6:43 PM EDTGender IdentityNot on fileSexual OrientationNot on file documented as of this encounter Plan of Treatment DateTypeDepartmentCare Team (Latest Contact Info)Xxffqwcabaz78/31/2025 10:20 AM ESTRoutine [facility] PERALTA [address] [place] [address] [place] [address] Jaylin Chung, NATHANIEL [address] [place] [address] 05/21/2025 3:50 PM ESTRoutine NOMTiffany PERALTA [address] [place] [address] Mamadou Hayden DO [address] [place] [place] [address] documented as of this encounter Procedures Procedure NamePriorityDate/TimeAssociated DiagnosisCommentsUS OB CERVICAL LENGTH 04/26/2025 5:17 PM EST documented in this encounter Results * US OB CERVICAL LENGTH (04/26/2025 5:17 PM EST)Anatomical RegionLaterality ModalityOtherSpecimen (Source)Anatomical Location / LateralityCollection Method / VolumeCollection TimeReceived Time04/26/2025 5:17 PM EST Narrative 04/26/2025 5:20 PM EST [facility] ?[address] ? [place] [address] ? Ultrasound Report ? Signed ? Patient: DESMOND,ESE N ?MR#: [id number] ?? : 1990 ?Acct:[id number] ?? Age/Sex: 34 / F ?ADM Date: 04/26/25 ?? Loc: [facility] ??250-1 ? Attending Dr: Mamadou Hayden D.O. ? Ordering Physician: Mamadou Hayden D.O. ?? Date of Service: 04/26/25 ?? Procedure(s): US OB cervical length ?? Accession Number(s): [id number] ? cc: Mamadou Hayden D.O.; Rebecca Rizvi PSYCHOLOGY ASSOCIATE ? [facility] ? [address] [place] [address] ? [place] [address] ? Patient Name: ?? ESE BADILLO ? MRN: [facility]:[id number] ? date: 1990 ?Sex: F ?? Assigned Patient Location: [facility] ?? Current Patient Location: [facility] ?? Accession/Order Number: [id number] ?? Exam Date: 04/26/2025 ??16:20 ?Report Date: [...] Dictation Location: RADIO-PC-18 ? Electronically authenticated by: [id number] ??Y ?? Date: 04/26/2025 ??17:17 ? Dictated By: ?Howard Huang M.D. ? Signed By: ?04/26/250 ? DD/ 1717 ? TD/TT: ? Agile Test Lead: Procedure Note Radiology, Radiologist, MD - 04/26/2025 [place] [address] Ultrasound Report Signed Patient: ESE BADILLO NMR#: [id number] : 1990Acct:[id number] Age/Sex: 34 / FADM Date: 04/26/25 Loc: [facility] 250-[address]: Mamadou Hayden D.O. Ordering Physician: Mamadou Hayden D.O. Date of Service: 04/26/25 Procedure(s): US OB cervical length Accession Number(s): [id number] cc: Mamadou Hayden D.O.; Rebecca Rizvi [facility] [place] [id number] Patient Name: ESE BADILLO MRN: [facility]:[id number] date: 1990 Sex: F Assigned Patient Location: [facility] Current Patient Location: [facility] Accession/Order Number: [id number] Exam Date: 04/26/2025 16:20 Report Date: 04/26/2025 [...] Jr., D.O. 04/26/2025 5:17 PM Dictation Location: [place] [address] Electronically authenticated by: [id number] Y Date: 7:17 Dictated By: Howard Huang M.D. Signed By:04/26/250 DD/ 16 TD/TT: Agile Test Lead: Authorizing ProviderResult TypeResult StatusCorey Jackelyn DOCLINISYNC IMAGINGFinal Result documented in this encounter Visit Diagnoses Not on filedocumented in this encounter Care Teams Team MemberRelationshipSpecialtyStart DateEnd Date Rebecca Rizvi MD [address] [place] [phone] PCP - GeneralFamily Medicine01/03/25documented as of this encounter
[2025-05-02 10:48] VITALS: BP 132/80; PULSE 111
== END 2025-05-02 11:42 | disposition home or self-care (01) ==
LOC: US 10:27 → FBC 10:29
PROVIDERS: PCP Nurse Practitioner Family; Visit Provider Obstetrics & Gynecology
DX: O26.893 Other specified pregnancy related conditions, third trimester (principal); Z3A.29 29 weeks gestation of pregnancy
CPT/HCPCS: 76818

== ENCOUNTER 2025-05-05 11:27 | Outpatient (OUT) | payer MEDICAID, SELFPAY ==
--- OUTSIDE RECORDS SUMMARY | 2025-04-23 13:40 | XMS_ITS | Encounter Summary ---
Author Organization [facility] Address [address] [place] [address] Care Team Providers Care Powder Worker Tnt Name Role Phone Rebecca Rizvi MD Primary Care Provider [phone] Reason for Visit * ReasonCommentsRoutine Visit Encounter Details DateTypeDepartmentCare Team (Latest Contact Info)Brrryulvpmr72/17/2025 1:40 PM ESTRoutine [facility] [address] [place] [address] Rene Hayden DO [address] [facility] [place] [address] Third trimester ([facility]); 28 weeks gestation of ([facility]); Multigravida of advanced maternal age in second trimester ([facility]); Twin following selective reduction, antepartum ([facility]) Social History Tobacco UseTypesPacks/DayYears UsedDateSmoking Tobacco: Never Assessed Estimated Date of OagtfcuqNmlpbdwhVbp93/11/2026Based on UltrasoundSex and Gender InformationValueDate RecordedSex Assigned at BirthNot on fileLegal SexFemale 07/20/2022 6:43 PM EDTGender IdentityNot on fileSexual OrientationNot on file documented as of this encounter Last Filed Vital Signs Vital SignReadingTime TakenCommentsBlood Diukviry095/7004/23/2025 1:54 PM EST Pulse--Temperature--Respiratory Rate--Oxygen Saturation--Inhaled Oxygen Concentration--Nkamvp85.9 kg (185 lb)04/23/2025 1:54 PM ESTHeight--Body Mass Index--documented in this encounter Progress Notes * Malena Betts, TANK OFFICER - 04/23/2025 1:40 PM EST Reason for [...] in second trimester ([facility]) 03/13/2025 H/O LEEP 03/13/2025 HSV (herpes simplex virus) infection 03/13/2025 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 Exam conducted with a an employee sponsor or advocate and present. Vitals: There is no height or weight on file to calculate BMI. BP: 110/70 No LMP recorded. Patient is . Assessment/Plan ICD-10-CM 1. Third trimester ([facility]) Z34.93 2. 28 weeks gestation of ([facility]) Z3A.28 POCT urinalysis dipstick manually resulted 3. Multigravida of advanced maternal age in second trimester ([facility]) O09.522 4. Twin following selective reduction, antepartum ([facility]) O30.009 O31.30X0 Assessment/Plan Return OB: Patient presents [...] Plan of Treatment DateTypeDepartmentCare Team (Latest Contact Info)Nvocgnbcbth72/31/2025 10:20 AM ESTRoutine [facility] [address] [place] [address] Jaylin Chung NP [address] [facility] [place] [phone] 05/21/2025 3:50 PM ESTRoutine [facility] [address] [place] [address] Rene Hayden, [address] [place] [address] documented as of this encounter Procedures Procedure NamePriorityDate/TimeAssociated DiagnosisCommentsPOCT URINALYSIS NVGJXXJDJnllmgp23/17/2025 2:02 PM EST 28 weeks gestation of ([facility]) documented in this encounter Results * (ABNORMAL) [...] / LateralityCollection Method / VolumeCollection Time Received RkhfDvxbj15/17/2025 2:02 PM EST Narrative Authorizing ProviderResult TypeResult StatusCorey Jackelyn DOPOINT OF CARE TEST ENTER/EDIT ORDERABLESFinal Result documented in this encounter Visit Diagnoses Diagnosis Third trimester ([facility]) state, incidental 28 weeks gestation of ([facility]) Multigravida of advanced maternal age in second trimester ([facility]) Twin following selective reduction, antepartum ([facility]) documented in this encounter Care Teams Team MemberRelationshipSpecialtyStart DateEnd Date Rebecca Rizvi MD [address] [place] [phone] PCP - GeneralFamily Medicine01/03/25documented as of this encounter
--- OUTSIDE RECORDS SUMMARY | 2025-04-26 23:50 | XMS_ITS | Encounter Summary ---
Author Organization [facility] tem Address [id number] [place] [address] Care Team Providers Care Medical Physics Professor Name Role Phone Rebecca Rizvi BLANCA-DATA ENTRY PROCESSOR Primary Care Provider Reason for Referral * Misc (Routine) - Pending ReviewSpecialtyDiagnoses / ProceduresReferred By ContactReferred To Contact Procedures Discharge Follow-Up [place] [address] Phone: tel: fax: Referral IDStatusReasonStart DateExpiration DateVisits RequestedVisits [id number] Reason for Visit * ReasonCommentsLEAKAGE/LOSS OF FLUID * Auth/CertSpecialtyDiagnoses / ProceduresReferred By ContactReferred To Contact Diagnoses Ruptured membranes Escobar Cook MD [facility], [place] [address] Phone: tel: fax: Referral IDStatusReasonStart DateExpiration DateVisits RequestedVisits [id number] Encounter Details DateTypeDepartmentCare Team (Latest Contact Info)Cdhtisqbrov92/20/2025 11:50 PM EST - 04/27/2025 11:24 PM ESTHospital Encounter [facility] Labor [address] [place] [id number] Escobar Cook MD [address] [facility], [address] [address] premature rupture of membranes (PPROM) with unknown [...] RecordedIn the past 12 months has the [employer], gas, oil, or water [employer] threatened to shut off services in your home?No03/28/2024Overall Financial Resource Strain (CARDIA)AnswerDate RecordedHow hard is it for you to pay for the very basics like food, housing, medical care, and heating?Not hard at all05/07/2024HQ-2AnswerDate RecordedTotal Npuae267PRAPARE - TransportationAnswerDate RecordedIn the past 12 months, has lack of transportation kept you from medical appointments or from getting medications?No 03/28/2024In the past 12 months, has lack of transportation kept you from meetings, work, or from getting things needed for daily living?No03/28/2024 [place] Depression ScaleAnswerDate RecordedEdinburgh Depression Scale Aofxt803The thought of harming myself has occurred to [...] a household?No4Childcare AnswerDate RecordedDo problems getting child and family services specialist make it difficult for you to work or study?No05/07/2024EmploymentAnswerDate RecordedEmploymentUnknown 10/15/2018Hunger ScreeningAnswerDate RecordedWithin the past 12 months we worried whether our food would run out before we got money to buy more.Never True03/11/2025Within the past 12 months the food we bought just didn't last and we didn't have money to get more.Never True03/11/2025Purpose - LifeAnswerDate RecordedPurpose and direction in ylugRyxcxel03/10/2021Estimated Date of UmlvihrgFoznlkmcBit35/11/2026Based on UltrasoundSex and Gender InformationValue Date RecordedSex Assigned at DqzxmDnoqkg50/02/2022 7:15 PM EDTLegal SexFemale 12/09/2014 2:44 PM EDTGender EmbgqfjpAqryob11/02/2022 7:15 PM EDTSexual HjizbxgmkeiEtngtdvw39/02/2022 7:15 PM EDTdocumented as of this encounter Last Filed Vital Signs Vital SignReadingTime TakenCommentsBlood Uuyrlmxv058/6004/27/2025 7:23 PM EST Nlrmg492404/27/2025 7:23 PM AOBItsfxeqsedz39.7 ??C (98.1 ??F)04/27/2025 9:34 PM ESTRespiratory Ecju538006/28/2024 7:23 PM ESTOxygen Hwdivwsikk27%04/27/2025 9:00 AM ESTInhaled Oxygen Concentration--Weight--Height--Body Mass Index--documented in this encounter Functional Status * HEENTQuestionAnswerDate of AssessmentAuthorHEENT (WDL)WDL106/28/2024 7:00 PM Shanika Mcginnis RN * IP Hunger/Food Insecurity ScreeningQuestionAnswerDate of AssessmentAuthor Hunger Screening Complete?Yes04/27/2025 12:24 AM Kenia Barton RNPt. Eligible for Food / VobaqczOm32/21/2025 12:24 AM Kenia Barton RNIf Eligible: Received Food BoxNot Offered to Jzbdnng2404/27/2025 12:24 AM Kenia Rankin RN * Vaginal DischargeAnswerDate of YpdfxhvqznMphromOulvy24/21/2025 7:00 PM Shanika Bearden RN * Preeclampsia AssessmentAnswerDate of AvdvzcqkodKcqudnKSK15/21/2025 7:00 PM Shanika Bearden RN * ActivityQuestionAnswerDate of AssessmentAuthorActivity PerformedResting in bed 04/27/2025 7:00 AM Kaleigh Mora RNActivity ResponseTolerated well 04/27/2025 7:00 AM Kaleigh Mora RNRange of MotionActive;All extremities 04/27/2025 7:00 AM Kaleigh Mora RNToileting AssistanceAmbulate to lgusldvd34/21/2025 7:00 AM Kaleigh Mora RNRepositionedTurns self 04/27/2025 7:00 AM Kaleigh Mora RNTransport FggojeZqjoruznwy79/21/2025 7:00 AM Kaleigh Mora RNBed PositionSelf ijnerbptt39/21/2025 7:00 AM Kaleigh Byers RN * Deterioration IndexQuestionAnswerDate of AssessmentAuthorDeterioration Index (30-60 mod; 60+ high)16.19106/28/2024 11:15 PM Raudel, Clindoc * ProgesteroneQuestionAnswerDate of AssessmentAuthorDid patient receive Progesterone this ?No04/27/2025 12:26 AM Kenia Barton RNDid the mother have a previous sgujovtxBv41/21/2025 12:26 AM Kenia Barton RN * SteroidQuestionAnswerDate of AssessmentAuthorDid patient receive Steroids prior to admission for lung amgnowyeSes55/21/2025 12:26 AM Kenia Barton RNDate last dose of Steroid was fvvxi4757104/21/2025 12:26 AM Kenia Barton RNTotal number of doses zeiiyixv267/21/2025 12:26 AM Kenia Barton RN * Human Trafficking ScreenQuestionAnswerDate of AssessmentAuthorHuman Trafficking ScreenNo present osvqemqf89/21/2025 12:20 AM Kenia Barton RN * PPH Admission and Labor Risk FactorsQuestionAnswerDate of AssessmentAuthor Prior , uterine surgery, other multiple /21/2025 8:00 PM Shanika Mcginnis RNGreater than 4 prior vaginal gujbcs800 8:00 PM Shanika Mcginnis RNLarge myomas/fibroids > 1fa960 8:00 PM Shanika Mcginnis RNPlacenta Previa or low lying kmrkgynn269/21/2025 8:00 PM Shanika Mcginnis RNSuspected placenta accreta or accreta rkifcuea472/21/2025 8:00 PM Shanika Mcginnis RNKnown wgtvoxwsmrbh208/21/2025 8:00 PM Shanika Mcginnis RN Abruption or active bleeding greater than bloody zjof131 8:00 PM Shanika Bearden RNStillbirth (IUFD) - Current ywqj152 8:00 PM Shanika Mcginnis RNCQXcxxaaliozmblzqn016/21/2025 8:00 PM Shanika Mcginnis RN Prolonged oxytocin (greater than 24 hours) 8:00 PM Shanika Mcginnis RNProlonged 2nd stage of koefs195 8:00 PM Shanika Mcginnis RNDiagnosis of Culbhstjlpnehl732/21/2025 8:00 PM Shanika Mcginnis RNDiagnosis of Qizyrrmomvwh375/21/2025 8:00 PM Shanika Mcginnis RNDiagnosis of HELLP Syndrome 8:00 PM Shanika Mcginnis RNPrevious hemorrhage0 04/27/2025 8:00 PM Shanika Mcginnis RN * Heart RateQuestionAnswerDate of AssessmentAuthorMonitorOther (Comment) 04/27/2025 7:00 AM Kaleigh Mora RNMultiple ?Yes04/27/2025 1:13 AM Kenia Barton RN * Uterine ActivityQuestionAnswerDate of AssessmentAuthorResting ToneSoft 04/27/2025 11:00 PM Shanika Mcginnis RNDurationna04/27/2025 11:00 PM Shanika Mcginnis RNCtx per 10 cnrf94606/28/2024 11:00 PM Shanika Mcginnis RNMonitorToco 04/27/2025 11:00 PM Shanika Mcginnis RNIntensityNot /21/2025 11:00 PM Shanika Mcginnis RN * DTRQuestionAnswerDate of AssessmentAuthorDeep Tendon Reflex Response+2 04/27/2025 7:00 PM Shanika Mcginnis RNClonusAbsent04/27/2025 7:00 PM Shanika Mcginnis RN * OB InterventionsQuestionAnswerDate of AssessmentAuthorOther (comment)pt very upset, does not want to be on monitor at this time04/27/2025 10:12 AM Kaleigh Mora, QEQcoxrlcgruaGzocmbt05/21/2025 10:42 PM Shanika Mcginnis, RNFetal MonitorUltrasound /21/2025 10:42 PM Shanika Mcginnis RNResponse Resident at dumuuek0104/27/2025 5:24 AM Kenia Barton RN * Pneumonia Vaccine Screen ages 19 to 64QuestionAnswerDate of AssessmentAuthor Are any of the following pneumococcal vaccine contraindications present? Patient refuses pneumonia winqwuw3904/27/2025 12:21 AM Kenia Barton RN Pneumococcal Vaccine [...] Rate Fetus BQuestionAnswerDate of AssessmentAuthorFHR Rhythm B Xwkufsk8704/27/2025 11:00 PM Shanika Mcginnis RNAcceleration BAccelerations ojipaii0804/27/2025 11:00 PM Shanika Mcginnis RNDeceleration BNone04/27/2025 11:00 PM Shanika Mcginnis RNCharacteristics INxggqi2704/27/2025 11:00 PM Shanika Bearden RNMonitor Fetus BExternal US04/27/2025 11:00 PM Shanika Mcginnis RNBaseline Variability BModerate (Between 6 and 25 BPM)04/27/2025 11:00 PM Shanika Bearden RNBaseline Rate T2718506/28/2024 11:00 PM Shanika Mcginnis RN Category BCategory I106/28/2024 11:00 PM Shanika Mcginnis RN * Vital SignsQuestionAnswerDate of KlqnqqtziaErziujHO119/6004/27/2025 7:23 PM Shanika Mcginnis RNTemp98. 9:34 PM Shanika Mcginnis RNTemp srcOral 04/27/2025 9:34 PM Shanika Mcginnis HQCxtno1144/21/2025 7:23 PM Shanika Mcginnis QEKwhl9962/21/2025 7:23 PM Shainka Mcginnis, ZBMnE10807/21/2025 9:00 AM Kaleigh Mora RNBP cuff sizeAdult (25-34cm)04/27/2025 9:00 AM Kaleigh Mora RNO2 DeviceNone (Room air)04/27/2025 7:23 PM Shanika Mcginnis RNHeart Rate UegwzzDcvoobs22/21/2025 3:26 PM Kaleigh Mora RNBP LocationLeft arm 04/27/2025 3:26 PM Kaleigh Mora RNBP GptvwkAxytgkrmf45/21/2025 3:26 PM Kaleigh Mora RNMAP (mmHg)80106/28/2024 3:26 PM Kaleigh Mora RNIs this an Orthostatic BP?No04/27/2025 3:26 PM Kaleigh Mora RNPatient Position Nasyvcq3004/27/2025 3:26 PM Kaleigh Mora RN * Oxygen TherapyQuestionAnswerDate of AssessmentAuthorPulse Oximetry Type Continuous;Ckjzsdpddl20/21/2025 9:00 AM Kaleigh Mora RN * Pain 2QuestionAnswerDate of AssessmentAuthorObserved EfxjvbdvUxir18/21/2025 3:26 PM Kaleigh Mora RN * Patient ObservationQuestionAnswerDate of AssessmentAuthorPatient Observations patient provided pillows and blankets to increase jnbwftv7304/27/2025 3:19 AM Kenia Barton RN * GastrointestinalQuestionAnswerDate of AssessmentAuthorGastrointestinal (WDL) WDL106/28/2024 7:00 PM Shanika Mcginnis RNGastrointestinal Additional ZtpilemimmeSf60/21/2025 7:00 AM Kaleigh Mora RN * MusculoskeletalQuestionAnswerDate of AssessmentAuthorMusculoskeletal (WDL)WDL 04/27/2025 7:00 PM Shanika Mcginnis RN * GenitaliaQuestionAnswerDate of AssessmentAuthorFemale Genitalia Intact;Rofzersip97/21/2025 7:00 PM Shanika Mcginnis RN * Anus/RectumQuestionAnswerDate of AssessmentAuthorAnus/Rectum (WDL)WDL 04/27/2025 7:00 PM Shanika Mcginnis RN * PsychosocialQuestionAnswerDate of AssessmentAuthorPatient Behaviors/Mood Vbctzmm9304/27/2025 7:00 PM Shanika Mcginnis, RNFamily/Visitor BehaviorsCalm 04/27/2025 7:00 PM Shanika Mcginnis RNNeeds HptthcspiMstkcq01/21/2025 7:00 PM Shanika Mcginnis, RNPsychosocial (WDL)X106/28/2024 7:00 PM Shanika Mcginnis RN Person/Family ZmscptcpkhMtolzr74/21/2025 7:00 PM Shanika Mcginnis RNAbility to Express FeelingsAble to cxukmlw0904/27/2025 7:00 PM Shanika Mcginnis RNAbility to Express NeedsAble to qnkbqmk8204/27/2025 7:00 PM Shanika Mcginnis RNAbility to Express ThoughtsAble to gzigzho4504/27/2025 7:00 PM Shanika Mcginnis RNTime of YjucdpnjfqWdcrvdy08/21/2025 7:00 PM Shanika Mcginnis RNAbility to Understand LgjaujYogulprbhhq26/21/2025 7:00 PM Shanika Mcginnis RN * [place] Fall RiskQuestionAnswerDate of AssessmentAuthorHistory of Falling0 04/27/2025 7:00 PM Shanika Mcginnis RNSecondary Rgbwdbehs5252/21/2025 7:00 PM Shanika Mcginnis RNAmbulatory Fqez58406/28/2024 7:00 PM Shanika Mcginnis RN Intravenous Therapy/Heparin/Saline Wntq646306/28/2024 7:00 PM Shanika Mcginnis RNGait/Ussgpbleqqvf304/21/2025 7:00 PM Shanika Mcginnis RNMental Status0 04/27/2025 7:00 PM Shanika Mcginnis, FRPrdnd4373/21/2025 7:00 PM Shanika Mcginnis, KLEVER * Arvind ScaleQuestionAnswerDate of AssessmentAuthorSensory Perceptions4 04/27/2025 7:00 PM Shanika Mcginnis RNMoisture4106/28/2024 7:00 PM Shanika Mcginnis, CDLxrfcwdh012/21/2025 7:00 PM Shanika Mcginnis RNMobility4106/28/2024 7:00 PM Shanika Mcginnis RNNutrition4106/28/2024 7:00 PM Shanika Mcginnis, KLEVER Friction and Elmtc63606/28/2024 7:00 PM Shanika Mcginnis RNBraden Scale Score21 04/27/2025 7:00 PM Shanika Mcginnis, KLEVER * Pain Intervention(s)AnswerDate of AssessmentAuthorMedication (See MAR) 04/27/2025 4:03 PM Jemima Zambrano RN * RespiratoryQuestionAnswerDate of AssessmentAuthorBilateral Breath SoundsClear 04/27/2025 7:00 PM Shanika Mcginnis RNR Breath VvuaeoSfrkb50/21/2025 7:00 PM Shanika Mcginnis RNL Breath OmfujcJzpbm40/21/2025 7:00 PM Shanika Mcginnis RN Respiratory HygcinhVrrfpji23/21/2025 7:00 PM Shanika Mcginnis RNChest AssessmentChest expansion /21/2025 7:00 PM Shanika Mcginnis RN CoughProductive;Mvrjtkvgca08/21/2025 7:00 PM Shanika Mcginnis RNRespiratory (WDL)X106/28/2024 7:00 PM Shanika Mcginnis RNRespiratory Additional Assessments No04/27/2025 6:00 AM Kenia Barton RN * Cough DescriptionQuestionAnswerDate of AssessmentAuthorSputum AmountUnable to yinmko5104/27/2025 7:00 PM Shanika Mcginnis RNSputum QzkqxOhamgh92/21/2025 7:00 PM Shanika Mcginnis RNSputum KgudaevzsdlEgofm72/21/2025 7:00 PM Shanika Mcginnis RN * Values/BeliefsQuestionAnswerDate of AssessmentAuthorCultural Requests During Kwhzncvftcsdnkzdehd29/21/2025 12:27 AM Kenia Barton RNSpiritual Requests During Kvdzfiomhjvazbaweib42/21/2025 12:27 AM Kenia Barton RN * GenitourinaryQuestionAnswerDate of JpbaodjthuJxkivlGpbhl22867/21/2025 7:00 AM Kaleigh Mora RNGenitourinary (WDL)WDL106/28/2024 7:00 PM Shanika Mcginnis RN * NeurologicalQuestionAnswerDate of AssessmentAuthorNeuro ([facility])WD06/28/2024 7:00 PM Shanika Mcginnis RN * Abuse Indicator ScreeningQuestionAnswerDate of AssessmentAuthorSafe in HomeYes 04/27/2025 12:27 AM Kenia Barton RNDo you feel safe in your relationship(s)?Yes04/27/2025 12:27 AM Kenia Barton RNAre you in immediate danger?No04/27/2025 12:27 AM Kenia Barton RN * Safe EnvironmentQuestionAnswerDate of AssessmentAuthorHourly RoundingYes 04/27/2025 11:00 PM Shanika Mcginnis RNArm Bands OnID04/27/2025 7:00 PM Shanika Bearden RNCall Perez Within NqqbnNvo20/21/2025 7:00 PM Shanika Mcginnis RNOverbed Table Within RbffmXqq33/21/2025 7:00 PM Shanika Mcginnis RNBed In Lowest EkzmtociQxi62/21/2025 7:00 PM Shanika Mcginnis RNBed Wheels LockedYes 04/27/2025 7:00 PM Shanika Mcginnis RNSide Rails/Bed Safety 7:00 PM Shnaika Mcginnis RNNonSkid FootwearOff;Patient in bed04/27/2025 7:00 PM Shanika Bearden RNBed/Chair Alarm OnOther (comment)04/27/2025 7:00 PM Shanika Mcginnis RN * Hygiene and AssistanceQuestionAnswerDate of AssessmentAuthorHygienePeri care;Linen uiulurx1104/27/2025 5:10 AM Kenia Barton RN * PrecautionsQuestionAnswerDate of JqrvkorumwIcplyvGnkamzsskhaHtfs45/21/2025 7:00 PM Shanika Mcginnis RN * Provider CommunicationQuestionAnswerDate of AssessmentAuthorProvider Role Bbchtvil42/21/2025 8:17 PM Shanika Mcginnis RNProvileon NameDr [facility] 04/27/2025 8:17 PM Shanika Mcginnis RNMethod of AbfcpwdahjtlcEgmn01/21/2025 8:17 PM Shanika Mcginnis RNResponseEn route04/27/2025 8:17 [...] * RN: Observer/Environment EvaluationQuestionAnswerDate of AssessmentAuthor ObserverNot crkfopwtb81/21/2025 7:00 PM Shanika Mcginnis RN * Blood Specimen Collection StatusQuestionAnswerDate of AssessmentAuthorBlood Specimen FrmrygoewlWyj47/21/2025 6:06 AM Megan Carmona, * Pain AssessmentQuestionAnswerDate of AssessmentAuthorPain LocationAbdomen 04/27/2025 5:00 AM Kenia Barton RNPain JvlsdlotenyXullx13/21/2025 5:00 AM Kenia Barton RNPain FficzrilhzoUrfodtux41/21/2025 3:26 PM Kaleigh Mora RNPain DurationConstant/qpqwvximzw96/21/2025 3:26 PM Kaleigh Byers RNPatient's Stated Acceptable Pain LevelNo pain04/27/2025 5:00 AM Kenia Barton RNPain AssessmentNo/denies pain04/27/2025 10:00 PM Shanika Mcginnis RNPain Fipns13206/28/2024 10:00 PM Shanika Mcginnis RN * NutritionQuestionAnswerDate of AssessmentAuthorCurrent Diet TypeOB Regular Gmiavgn7904/27/2025 7:00 PM Shanika Mcginnis, YYBbdckvhoNjzp58/21/2025 7:00 PM Shanika Mcginnis RNRoom ServiceAppropriate for room guhhuwx3004/27/2025 7:00 PM Shanika Mcginnis RN * IntegumentaryQuestionAnswerDate of AssessmentAuthorIntegumentary (WDL)WDL 04/27/2025 7:00 PM Shanika Mcginnis RN * Fall Risk ScaleQuestionAnswerDate of AssessmentAuthorFall Risk ScaleMorse Fall Risk Scale04/27/2025 7:00 PM Shanika Mcginnis RN * Tattoos/PiercingsQuestionAnswerDate of AssessmentAuthorDoes patient have tattoos?Yes04/27/2025 7:00 PM Shanika Mcginnis RN * [place] Suicide BehaviorQuestionAnswerDate of AssessmentAuthor6. Have you ever [...] 04/27/2025 8:17 PM Shanika Mcginnis RN * [place] Suicide Risk LevelAnswerDate of AssessmentAuthorNot at Suicide Risk 04/27/2025 12:21 AM Kenia Barton RN * ADL/Functional/CognitiveQuestionAnswerDate of AssessmentAuthorPatient's Vision Adequate to Safely Complete Daily XxnmuzgahsDu12/21/2025 1:17 AM Kenia Rankin RNPatidick's Judgement Adequate to Safely Complete Daily VnmupaqsloCje98/21/2025 1:17 AM Kenia Barton RNHearing - Right Ear Qhyzmbvzjc84/21/2025 1:17 AM Kenia Barton RNHearing - Left Ear Hhwvotgxmr38/21/2025 1:17 AM Kenia Barton RNAre you deaf [...] * Crib/Car Seat AvailabilityQuestionAnswerDate of AssessmentAuthorCar Seat VmsruejokBvl44/21/2025 12:30 AM eKnia Barton RNCrib Available at Home for MlemubCeu72/21/2025 12:30 AM Kenia Barton RN * ActivityQuestionAnswerDate of AssessmentAuthorActivity PerformedResting in bed 04/27/2025 7:00 AM Kaleigh Mora RNActivity ResponseTolerated well 04/27/2025 7:00 AM Kaleigh Mora RNRange of MotionActive;All extremities 04/27/2025 7:00 AM Kaleigh Mora RNToileting AssistanceAmbulate to /21/2025 7:00 AM Kaleigh Mora RNRepositionedTurns self 04/27/2025 7:00 AM Kaleigh Mora RNTransport CbvqphIxddnmnmmh45/21/2025 7:00 AM Kaleigh Mora RNBed PositionSelf snaejdeyl23/21/2025 7:00 AM Kaleigh Byers RN * Uterine ActivityQuestionAnswerDate of AssessmentAuthorResting ToneSoft 04/27/2025 11:00 PM Shanika Mcginnis RNDurationna04/27/2025 11:00 PM Shanika Mcginnis RNCtx per 10 mzul97306/28/2024 11:00 PM Shanika Mcginnis RNMonitorToco 04/27/2025 11:00 PM Shanika Mcginnis RNIntensityNot hlfodjxblw84/21/2025 11:00 PM Shanika Mcginnis RN * Vital SignsQuestionAnswerDate of NoipsdixprWaymkgIA314/6004/27/2025 7:23 PM Shanika Mcginnis RNTemp98. 9:34 PM Shanika Mcginnis RNTemp srcOral 04/27/2025 9:34 PM Shanika Mcginnis, KTOskba6924/21/2025 7:23 PM Shanika Mcginnis HRTyvg6311/21/2025 7:23 PM Shanika Mcginnis ZZVyR03281/21/2025 9:00 AM Kaleigh Mora RNHeart Rate QoputiIgllhqe56/21/2025 3:26 PM Kaleigh Mora RNBP LocationLeft arm04/27/2025 3:26 PM Kaleigh Mora RNBP Method Ympsgztwt00/21/2025 3:26 PM Kaleigh Mora RNMAP (mmHg)80106/28/2024 3:26 PM Kaleigh Mora RNIs this an Orthostatic BP?No04/27/2025 3:26 PM Kaleigh Mora RNPatient OolchwrhZkqoofg41/21/2025 3:26 PM Kaleigh Mora RN * Safe EnvironmentQuestionAnswerDate of AssessmentAuthorCall Perez Within Reach Yes04/27/2025 7:00 PM Shanika Mcginnis RNBed In Lowest TbfyvopzIyr41/21/2025 7:00 PM Shanika Mcginnis RNBed Wheels PjrbqvFog69/21/2025 7:00 PM Shanika Mcginnis RN * ADL/Functional/CognitiveQuestionAnswerDate of AssessmentAuthorPjovanny's Vision Adequate to Safely Complete Daily NpsefborqxZc13/21/2025 1:17 AM Kenia Rankin RNPatient's Judgement Adequate to Safely Complete Daily ZfzmthnfrvNfx34/21/2025 1:17 AM Kenia Barton RNHearing - Right Ear Thfvxhryjw58/21/2025 1:17 AM Keina Barton RNHearing - Left Ear Bpxkfzkzcy47/21/2025 1:17 AM Kenia Barton RNAre you deaf [...] PM Shanika Mcginnis RN * ActivityQuestionAnswerEntry DateAuthorTransport UkytgcHcuexkzqqu91/21/2025 7:00 AM Kaleigh Mora RN * Vital SignsQuestionAnswerEntry UbdqLhtxvpDS288/6004/27/2025 7:23 PM Shanika Mcginnis RNTemp98. 9:34 PM Shanika Mcginnis RNTemp nvtPeur4304/27/2025 9:34 PM Shanika Mcginnis IHFieol1204/21/2025 7:23 PM Shanika Mcginnis KRAzvh69 04/27/2025 7:23 PM Shanika Mcginnis KUBeK87939/21/2025 9:00 AM Kaleigh Mora RNBP cuff sizeAdult (25-34cm)04/27/2025 9:00 AM Kaleigh Mora RN O2 DeviceNone (Room air)04/27/2025 7:23 PM Shanika Mcginnis RNHeart Rate RzqcryFwdwvqj13/21/2025 3:26 PM Kaleigh Mora RNBP LocationLeft arm 04/27/2025 3:26 PM Kaleigh Mora RNBP BsevoiBnmgooqyf07/21/2025 3:26 PM Kaleigh Mora RNMAP (mmHg)80106/28/2024 3:26 PM Kaleigh Mora RNIs this an Orthostatic BP?No04/27/2025 3:26 PM Kaleigh Mora RNPatient Position Cttqwrb0904/27/2025 3:26 PM Kaleigh Mora RN * Oxygen TherapyQuestionAnswerEntry DateAuthorPulse Oximetry Type Continuous;Xfxehnklyk58/21/2025 9:00 AM Kaleigh Mora RN * Pain 2QuestionAnswerEntry DateAuthorObserved GtrhipyyDtnm05/21/2025 3:26 PM Kaleigh Mora RN * GastrointestinalQuestionAnswerEntry DateAuthorGastrointestinal (WDL)WDL 04/27/2025 7:00 PM Shanika Mcginnis RNGastrointestinal Additional Assessments No04/27/2025 7:00 AM Kaleigh Mora RN * MusculoskeletalQuestionAnswerEntry DateAuthorMusculoskeletal (WDL)WDL 04/27/2025 7:00 PM Shanika Mcginnis RN * GenitaliaQuestionAnswerEntry DateAuthorFemale GenitaliaIntact;Discharge 04/27/2025 7:00 PM Shanika Mcginnis RN * Anus/RectumQuestionAnswerEntry DateAuthorAnus/Rectum (WDL)WDL106/28/2024 7:00 PM Shanika Mcginnis RN * PsychosocialQuestionAnswerEntry DateAuthorPatient Behaviors/MoodAnxious 04/27/2025 7:00 PM Shanika Mcginnis RNFamily/Visitor DcjkxrrkaKevo79/21/2025 7:00 PM Shanika Mcginnis RNNeeds HcurtrgnkRfnstz46/21/2025 7:00 PM Shanika Mcginnis RNPsychosocial (WDL)X106/28/2024 7:00 PM Shanika Mcginnis RN Person/Family HlbkqphoxtQlbval66/21/2025 7:00 PM Shanika Mcginnis RNAbilyash to Express FeelingsAble to ssvvybz1104/27/2025 7:00 PM Shanika Mcginnis RNAbility to Express NeedsAble to dgntwnd1004/27/2025 7:00 PM Shanika Mcginnis RNAbility to Express ThoughtsAble to spycfip8904/27/2025 7:00 PM Shanika Mcginnis RNTime of LylmsokeefCkywewh06/21/2025 7:00 PM ESTLong, Shanika, RNAbility to Understand HzmgqiRemsghlwyye70/21/2025 7:00 PM Shanika Mcginnis RN * Arvind ScaleQuestionAnswerEntry DateAuthorSensory Vfeavfopbag271/21/2025 7:00 PM Shanika Mcginnis, TICawtgjsh210/21/2025 7:00 PM Shanika Mcginnis, RNActivity2 04/27/2025 7:00 PM Shanika Mcginnis, RDIrelbvrx316/21/2025 7:00 PM Shanika Mcginnis, EQAtppldyeg853/21/2025 7:00 PM Shanika Mcginnis, RNFriction and Shear3 04/27/2025 7:00 PM Shanika Mcginnis RNBraden Scale Mgpzd535204/27/2025 7:00 PM Shanika Mcginnis RN * Pain Intervention(s)AnswerEntry DateAuthorMedication (See MAR)04/27/2025 4:03 PM Jemima Zambrano RN * RespiratoryQuestionAnswerEntry DateAuthorBilateral Breath SoundsClear 04/27/2025 7:00 PM Shanika Mcginnis RNR Breath XmqzimVoafu00/21/2025 7:00 PM Shanika Mcginnis RNL Breath DuflghRbjcm06/21/2025 7:00 PM Shanika Mcginnis RN Respiratory FbgvwnqEbyznnh61/21/2025 7:00 PM Shanika Mcginnis RNChest AssessmentChest expansion ivczlionuxt16/21/2025 7:00 PM Shanika Mcginnis RN CoughProductive;Qaijebpsby78/21/2025 7:00 PM Shanika Mcginnis RNRespiratory (WDL)X106/28/2024 7:00 PM Shanika Mcginnis RNRespiratory Additional Assessments No04/27/2025 6:00 AM Kenia Barton RN * Cough DescriptionQuestionAnswerEntry DateAuthorSputum AmountUnable to assess 04/27/2025 7:00 PM Shanika Mcginnis RNSputum RksvpJcpzzy85/21/2025 7:00 PM Shanika Bearden RNSputum YrbpqpbqoeoPxlvt56/21/2025 7:00 PM Shanika Mcginnis RN * GenitourinaryQuestionAnswerEntry BjghZilffdZuwho59646/21/2025 7:00 AM Kaleigh Mora RNGenitourinary (WDL)WD06/28/2024 7:00 PM Shanika Mcginnis RN * NeurologicalQuestionAnswerEntry DateAuthorNeuro (WDL)[facility]06/28/2024 7:00 PM Shanika Bearden RN * Provider CommunicationQuestionAnswerEntry DateAuthorProvider RoleResident 04/27/2025 8:17 PM Shanika Mcginnis RNProvider NameDr Cjwavase09/21/2025 8:17 PM Shanika Mcginnis RNMethod of QgsqebhnzrtaqCabd53/21/2025 8:17 PM Shanika Mcginnis RNResponseEn route04/27/2025 8:17 PM Shanika Mcginnis RN * RN: Observer/Environment EvaluationQuestionAnswerEntry DateAuthorObserverNot vfddbqkze25/21/2025 7:00 PM Shanika Mcginnis RN * Pain AssessmentQuestionAnswerEntry DateAuthorPain UclkqwdjTptpumh65/21/2025 5:00 AM Kenia Barton, Misael XsjmbftpksnSyjmx23/21/2025 5:00 AM Kenia Rankin RNPain ZcywxjxqjxyDzrojimy02/21/2025 3:26 PM Kaleigh Mora RNPain DurationConstant/lyhovebkhp79/21/2025 3:26 PM Kaleigh Mora RNPatient's Stated Acceptable Pain LevelNo pain04/27/2025 5:00 AM Kenia Rankin RNPain AssessmentNo/denies pain04/27/2025 10:00 PM Shanika Bearden RNPain Gkqfa69506/28/2024 10:00 PM Shanika Mcginnis RN * IntegumentaryQuestionAnswerEntry DateAuthorIntegumentary (WDL)[facility]06/28/2024 7:00 PM Shanika Mcginnis RN * [...] TABLET BY MOUTH EVERY MORNING 30 tablet UYNB-kddixxnn-zzbglnehznu xt 100-100-225 mg capsule Take 1 capsule [...] mouth in the morning. 30 capsule 608 367-iebk-paudpv 6-dha 27 mg iron-1 mg -205 mg [...] ordered Dr Nesbitt updated Gaby Truong MD Philosophy Faculty Member Resident, PGY-4 Cosigned by Mary Nesbitt MD [...] 28w3d who presents as a Transport from [facility] with concern for possible PPROM. Patient [...] noted. She denies anyrecent intercourse While at [facility], an exam was performed and an amniosure sent which was positive. 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 They have a rwvx-kryf-alf daughter that has a mild form (Clemens [...] viral load undetected History of heroin abuse ([facility]) 03/17/2024 03/17/2024: Patient states she has been [...] Interpersonal Safety: Low Risk (03/18/2025) Received from [facility] Intimate Partner Violence Safe in relationship? [...] 120bpm, moderate variability, present acceleration, absent decelerations Ideal: none Labs No results found for this [...] 28w3d who presents as a transport from [facility] for PPROM in setting of di/di [...] GBS ordered - MFM consulted, appreciate recommendations. [facility] US ordered - Baby B FHT reactive and reassuring 2. Possible URI - RPP ordered 3. History of Hep C - Hep C quant ordered - AST/ALT wnl 4. Routine antepartum care - [facility] US 04/14: Baby A: multiple anomalies. Baby B: EFW 1059g (63%), AC 23cm (62%), DVP 5.5cm,ceph, post pl - NPO - cEFM Pt discussed with Dr. 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 They have a bufx-uofp-sfl daughter that has a mild form (Clemens [...] viral load undetected History of heroin abuse ([facility]) 03/17/2024 03/17/2024: Patient states she has been [...] the premature infant, as well asthe associated exterminator helper termite complications of each. They are aware that the may need antibiotics, and other medical consults as deemed necessary while in the NICU. NICU family participation, Levon Doc/MEDICAL NURSE daily rounding procedures, the availability of the social worker health services and the availability of [facility] were all explained. The NICU visitation policy [...] Delivery: 07/16/25 Presented as a Transport from [facility] with concern for possible PPROM. Patient states shefirst started noting possible leakage yesterday morning. While at [facility], an exam was performed and an amniosure sent which was positive. She wasstarted on Magnesium sulfate for neuroprotection, ampicillin and corticosteroids then transferred to [facility] for further evaluation and management. This morning she denies any fevers/chills, nausea/vomiting or diarrhea. She reports movement of Baby B with no contractions or vaginal bleeding noted. She denies any recent intercourse Complications: s/p multifetal reduction of Twin A at [facility] at 23w5d on 03/24/25 - genetic [...] family also underwent a consultation at the [facility] therapy Center Rh negative sp rhogam 03/25/25 Advanced maternal age with low risk cell free DNA testing. Both parents carrier for galactosemia. One of the daughters does have galactosemia trait and has required nutritional support. Patient was established with [facility] metabolic disorder howeverthe physician has retired. [...] MOUTH EVERY MORNING 30 tablet 6 04/26/2025 749-bavc-ahbewm 6-dha 27 mg iron-1 mg -205 mg [...] remove for 1 week. 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 They have a dygn-zbns-cpu daughter that has a mild form (Clemens [...] viral load undetected History of heroin abuse ([facility]) 03/17/2024 03/17/2024: Patient states she has been [...] 05/03/2016 Performed by Kim Bhatia MD at [facility] SURGERY WISDOM TOOTH EXTRACTION MEDS Current [...] intravenous Continuous PRN Gaby Truong MD PNV,calcium 40-mlhv-fytbf acid ( PLUS) 27 mg iron- 1 [...] GTT: No results found for: GLUF , SSHRAMM1KM , ROWJGBS9NT , ILASHQH4ZX Physical Exam Vitals and nursing note reviewed. [...] multifetal reduction of Twin A at [facility] at 23w5d on 03/24/25 Reviewed with [...] Charlene Lees MD, FACOG (she/hers) Maternal- Medicine [facility] [address] [place] [address] This document was created with [employer] technology. Though I make every effort to review the dictation as it is transcribed, on occasion the spoken word can be misinterpreted by the technology leading to inappropriate words, phrases, or sentences. This note is addressed to the requesting provider as a consultation for clinical guidance. Specificmedical abbreviations are occasionally used and those are generally approved by the [place]?Board of?Obstetrics and?Gynecology?as well as?[employer] [place]???s abbreviations. The above plan of care was based solely on the diagnoses for which a consultation was requested. ?More frequent testing may be indicated based on her other medical/obstetrical conditions. The management of other or medical conditions is beyond the scope of requested consultation and will c ontinue to be followed by the primary manager branch or primary care provider. Note to patient: [...] AM EST Patient expressing desire to leave [place] due to childcare and social issues at [...] mother. Patient expressed interest in going to [facility] with her kids. RN called social work, who said that unless there's a sibling admitted to the hospital, children are not allowed to stay at [facility]. Social work to come speak [...] Description: INTERVENTIONS: 1. Encourage patient or legal home furnishings sales representative to report early pain and [...] per policy 9. Teach patient or legal home furnishings sales representative interventions for comforting Outcome: Progressing [...] at the bedside 7. Instruct patient/ patient home furnishings sales representative about use of safety devices 8. Include patient/ patient home furnishings sales representative in decisions related to safety [...] hygiene technique. 7. Identify and instruct patient/patient home furnishings sales representative in use of appropriate isolation precautionsfor identified infection/symptoms. 8. Provide and discuss with patient/patient home furnishings sales representative on educational MDRO sheet. 9. Encourage and monitor nutritional status daily and consult campus recruiting internship if indicated. 10. Implement neutropenic guidelines as needed. Outcome: Progressing Note: Evaluation of progress towards goal: Patient is free from signs and symptoms of infection. Problem: Knowledge Deficit Goal: Patient/patient home furnishings sales representative demonstrates understanding of disease process, [...] on patient's door 9. Provide patient/ patient home furnishings sales representative with isolation education. Outcome: Progressing Note: Evaluation of progress towards goal: Patient is free from signs and symptoms of infection. Problem: Moderate - High Risk Fall Score Description: Gus Wade Score of =/> 25 or indicated by [facility] Assessment Goal: Patient should be free from fall Description: Interventions: 1. [place] to environment 2. Hourly rounds addressing the [...] non-skid footwear 11. Teach patient and patient home furnishings sales representative to maintain environment for safety [...] (cane, walker) within reach 19. Request patient home furnishings sales representative bring adaptive equipment/mobility aids from home or obtain and provide as needed 20. Consult pharmacy regarding effects of med's affecting mobility, cognition, and alternatives 21. Obtain physician order for PT if risk factors associated with mobility are present 22. Obtain physician order for OT as appropriate 23. Utilize diversional activities 24. Educate patient and patient home furnishings sales representative how to maintain a safe environment during visitationtimes (notify nurse prior to leaving bedside) 25. Consider appropriateness of medical or non-medical insurance coding specialist 26. Set up voiding schedule as appropriate [...] abruption. AMA paperwork signed. Luis Kuhn MD Philosophy Faculty Member Resident, PGY-4 * Discharge Planning Note - [facility] - 04/27/2025 1:35 PM EST DISCHARGE PLANNING NOTE SOCIAL WORK NOTE SW consult for 34 y.o. at 28w4d gestation. Chart reviewed and case discussed with KLEVER Farris. Twin with reduction of twin A at 23w. Transfer from [facility] and found to have PROM of [...] there with her children until delivery. Per client support administrator marine electronics technician, pt could stay at [facility] with her children if there was another supportive adult present at all times. SW met with patient at bedside, introduced self and explained role. Discussed pt situation and options. Pt states [facility] is not an option because she does not have a supportive adult that is available to stay with her. Pt states FOB is helpful with her 1 y.o. and 7 y.o. and they typically stay with him 2 days per week. He does work 5 days / week, which would make it difficult for him to provide multimedia services coordinator care while pt is admitted. Pt utilizes [...] Description: INTERVENTIONS: 1. Encourage patient or legal home furnishings sales representative to report early pain and [...] per policy 9. Teach patient or legal home furnishings sales representative interventions for comforting Outcome: Progressing [...] at the bedside 7. Instruct patient/ patient home furnishings sales representative about use of safety devices 8. Include patient/ patient home furnishings sales representative in decisions related to safety [...] hygiene technique. 7. Identify and instruct patient/patient home furnishings sales representative in use of appropriate isolation precautionsfor identified infection/symptoms. 8. Provide and discuss with patient/patient home furnishings sales representative on educational MDRO sheet. 9. Encourage and monitor nutritional status daily and consult campus recruiting internship if indicated. 10. Implement neutropenic guidelines as needed. Outcome: Progressing Note: Evaluation of progress towards goal: Patient receiving antibiotics to treat any possible infection. No fever or other signs of infection at this time. Problem: Knowledge Deficit Goal: Patient/patient home furnishings sales representative demonstrates understanding of disease process, [...] on patient's door 9. Provide patient/ patient home furnishings sales representative with isolation education. Outcome: Progressing Note: Evaluation of progress towards goal: Will use standard protocols to prevent transmission of infection. Problem: Moderate - High Risk Fall Score Description: Gus Wade Score of =/> 25 or indicated by [facility] Assessment Goal: Patient should be free from fall Description: Interventions: 1. [place] to environment 2. Hourly rounds addressing the [...] non-skid footwear 11. Teach patient and patient home furnishings sales representative to maintain environment for safety [...] (cane, walker) within reach 19. Request patient home furnishings sales representative bring adaptive equipment/mobility aids from home or obtain and provide as needed 20. Consult pharmacy regarding effects of med's affecting mobility, cognition, and alternatives 21. Obtain physician order for PT if risk factors associated with mobility are present 22. Obtain physician order for OT as appropriate 23. Utilize diversional activities 24. Educate patient and patient home furnishings sales representative how to maintain a safe environment during visitationtimes (notify nurse prior to leaving bedside) 25. Consider appropriateness of medical or non-medical insurance coding specialist 26. Set up voiding schedule as appropriate [...] Description: INTERVENTIONS: 1. Encourage patient or legal home furnishings sales representative to report early pain and [...] per policy 9. Teach patient or legal home furnishings sales representative interventions for comforting Outcome: Progressing [...] at the bedside 7. Instruct patient/ patient home furnishings sales representative about use of safety devices 8. Include patient/ patient home furnishings sales representative in decisions related to safety [...] hygiene technique. 7. Identify and instruct patient/patient home furnishings sales representative in use of appropriate isolation precautionsfor identified infection/symptoms. 8. Provide and discuss with patient/patient home furnishings sales representative on educational MDRO sheet. 9. Encourage and monitor nutritional status daily and consult campus recruiting internship if indicated. 10. Implement neutropenic guidelines as needed. Outcome: Progressing Note: Evaluation of progress towards goal: Handwashing enforced to prevent infection. Problem: Knowledge Deficit Goal: Patient/patient home furnishings sales representative demonstrates understanding of disease process, [...] on patient's door 9. Provide patient/ patient home furnishings sales representative with isolation education. Outcome: Progressing Note: Evaluation of progress towards goal: infection prevention Additional Comments: documented in this encounter Plan of Treatment DateTypeDepartmentCare Team (Latest Contact Info)Rkpwytcjxyt63/08/2026 8:30 AM ESTAppointment [facility] Imaging [address] [place] [phone] 05/15/2025 11:00 AM ESTOffice Visit Maternal- Medicine at [facility] [address] [place] [phone] Charlene Lees MD [address] [facility] [address] [place] [address] 11/04/2025 4:00 PM EDTOffice Visit [facility] [address] [place] [phone] Rebecca Rizvi [facility] [address] [place] [address], [place] [phone] documented as of this encounter Procedures Procedure NamePriorityDate/TimeAssociated DiagnosisCommentsURINALYSISRoutine 04/27/2025 7:56 AM EST LACTATE W/ XVIBLQQCGF30/21/2025 6:25 AM EST CBC WITH AUTO HFPVZTODUCWZDMBU90/21/2025 6:25 AM EST BLOOD BYNUZNIGGJP59/21/2025 6:25 AM EST BLOOD ZJRUOLRFJVA19/21/2025 6:25 AM EST COMPREHENSIVE METABOLIC AEULUWKTX16/21/2025 6:25 AM EST EXTRA TUBES BLUE DWCIqxxrhv63/21/2025 6:24 AM EST EXTRA PAFUTLpdneuo90/21/2025 6:24 AM EST MOLECULAR VAGINITIS PANEL LGYDzmrfwx33/21/2025 2:20 AM EST CHLAMYDIA/GC BY PCR NORBERTO OUIPZvvwovy51/21/2025 2:20 AM EST RESP PATHOGENS PANEL/MXTZ-ZJM-9Uwafxly09/21/2025 2:20 AM EST STREP B SIEPMGJvxbizu33/21/2025 2:20 AM EST RUPTURE OF MEMBRANE (ALL)Bmwohkh5604/27/2025 1:43 AM EST HEPATITIS C VIRUS QUANTITATIVE BY NAATAdd-On04/27/2025 12:13 AM EST SYPHILIS TOTAL(UNKNOWN SYPHILIS STATUS)STAT106/28/2024 12:13 AM EST ANTIBODY KDVeqtjte40/21/2025 12:13 AM EST CBC WITH AUTO XNUWYWWQXZHTUZGG04/21/2025 12:13 AM EST TYPE AND UDMEFXPRTS63/21/2025 12:13 AM EST COMPREHENSIVE METABOLIC FDTVFURIR80/21/2025 12:13 AM EST EXTRA TUBES PST KBGTsgscjq58/21/2025 12:08 AM EST EXTRA TUBES BLUE EJJKnhxmzr16/21/2025 12:08 AM EST EXTRA TIJMQOvxxrul19/21/2025 12:08 AM EST documented in this encounter Results * (ABNORMAL) Urinalysis (04/27/2025 7:56 AM EST)ComponentValueRef RangeTest MethodAnalysis TimePerformed AtPathologist SignatureCOLORYellowYellow 04/27/2025 8:41 AM [facility] LABORATORYTURBIDITYClearClear 04/27/2025 8:41 AM [facility] LABORATORYSPECIFIC GRAVITY1.023 1.003 - 1.2415204/27/2025 8:41 AM [facility] LABORATORYNITRITE ByatwpanNervxdkn15/21/2025 8:41 AM [facility] PH,URINE6.55.0 - 8.512 8:41 AM [facility] LEUKOCYTE JAKYGUVSNcalxtlmSrucvvuf51/21/2025 8:41 AM [facility] LABORATORYPROTEINTrace(A)Uceclqhc19/21/2025 8:41 AM [facility] LABORATORYKETONES (URINE)10 mg/dL(A)Qtfpbpjz61/21/2025 8:41 AM EST [facility] LABORATORYUROBILINOGEN<1.1 eu/dL<1.1 eu/dL04/27/2025 8:41 AM [facility] LABORATORYBILIRUBIN (URINE)Negative Tqvosopm36/21/2025 8:41 AM [facility] LABORATORYBLOOD/HGB CtcghxdnOyqoyhbb03/21/2025 8:41 AM [facility] MUCOUSPresent(A)None04/27/2025 8:41 AM [facility] R.B.CELLS10 - 512 8:41 AM [facility] SQUAMOUS NVQRLUXLNO73 - 8:41 AM [facility] LABORATORYW.B.CELLS10 - 512 8:41 AM [facility] LABORATORYGLUCOSE (URINE)YhqoywweNpbfrgeg40/21/2025 8:41 AM [facility] LABORATORYSpecimen (Source)Anatomical Location / LateralityCollection Method / VolumeCollection TimeReceived TimeUrineUrine / Vvfwexl9904/27/2025 7:56 AM EST04/27/2025 8:24 AM EST Narrative Authorizing ProviderResult TypeResult StatusTannicjenna Truong MDURINE ORDERABLES Final ResultPerforming OrganizationAddressCity/State/ZIP CodePhone Number [facility] [address] [place] [address], * Blood culture #2 (04/27/2025 6:25 AM EST)ComponentValueRef RangeTest Method Analysis TimePerformed AtPathologist SignatureCULTURE RESULTSNO GROWTH 5 DAYS 05/02/2025 10:01 AM [facility] LABORATORYSpecimen (Source) Anatomical Location / LateralityCollection Method / VolumeCollection Time Received TimeBloodVenous blood / UnknownVenipuncture / Jmrusem6404/27/2025 6:25 AM EST04/27/2025 9:31 AM EST Narrative [facility] - 05/02/2025 10:01 AM EST Suboptimal volume of blood collected, Results may be affected. Authorizing ProviderResult TypeResult StatusHasbro Children's HospitalICROBIOLOGY - GENERAL ORDERABLESFinal ResultPerforming OrganizationAddressCity/State/ZIP Code Phone Number [facility] [address] [place] [address], * Blood culture #1 (04/27/2025 6:25 AM EST)ComponentValueRef RangeTest Method Analysis TimePerformed AtPathologist SignatureCULTURE RESULTSNO GROWTH 5 DAYS 05/02/2025 10:01 AM [facility] LABORATORYSpecimen (Source) Anatomical Location / LateralityCollection Method / VolumeCollection Time Received TimeBloodVenous blood / UnknownVenipuncture / Yaoqgir0604/27/2025 6:25 AM EST04/27/2025 9:31 AM EST Narrative [facility] - 05/02/2025 10:01 AM EST Suboptimal volume of blood collected, Results may be affected. Authorizing ProviderResult TypeResult StatusTanOsteopathic Hospital of Rhode IslandROBIOLOGY - GENERAL ORDERABLESFinal ResultPerforming OrganizationAddressCity/State/ZIP Code Phone Number [facility] [address] [place] [address], [place] [phone] * Lactate w/ Reflex (04/27/2025 6:25 AM EST)ComponentValueRef RangeTest Method Analysis TimePerformed AtPathologist SignatureLACTATE W/REFLEX1.00.4 - 2.0 mmol/L106/28/2024 7:23 AM [facility] LABORATORYSpecimen (Source)Anatomical Location / LateralityCollection Method / VolumeCollection TimeReceived TimeBloodVenous blood / UnknownVenipuncture / Kbdypnj0004/27/2025 6:25 AM EST04/27/2025 6:41 AM EST Narrative [facility] - 04/27/2025 7:23 AM EST Result did not trigger repeat Lactate, re-order if needed. Authorizing ProviderResult TypeResult StatusTannicjenna HUNTER BLOOD ORDERABLESFinal ResultPerforming OrganizationAddressCity/State/ZIP CodePhone Number [facility] [address] [place] [address], * (ABNORMAL) Comprehensive metabolic panel (04/27/2025 6:25 AM EST)Component ValueRef RangeTest MethodAnalysis TimePerformed AtPathologist SignatureSODIUM 008642 - 146 mmol/L106/28/2024 7:18 AM [facility] POTASSIUM3.93.5 - 5.0 mmol/L106/28/2024 7:18 AM [facility] OWCFPLCPXVBIGXHEOG17036 - 109 mmol/L106/28/2024 7:18 AM [facility] LABORATORYCARBON VFMFHBW48(L)22 - 32 mmol/L106/28/2024 7:18 AM [facility] LABORATORYANION GAP85 - 15 mmol/L106/28/2024 7:18 AM [facility] LABORATORYBLOOD UREA PIGQXUJO40 - 23 mg/dL04/27/2025 7:18 AM [facility] LABORATORYCREATININE0.510.40 - 1.00 mg/dL 04/27/2025 7:18 AM [facility] LABORATORYComment:METHOD TRACEABLE TO IDMS UMRWKINZGHDXVRD630(H)65 - 99 mg/dL04/27/2025 7:18 AM [facility] LABORATORYCALCIUM7.1(L)8.5 - 10.5 mg/dL04/27/2025 7:18 AM [facility] LABORATORYTOTAL PROTEIN6.06.0 - 8.0 g/dL 04/27/2025 7:18 AM [facility] LABORATORYALBUMIN3.23.2 - 5.3 g/dL04/27/2025 7:18 AM [facility] LABORATORYALKALINE XDCUBRYQLSM0787 - 130 U/L106/28/2024 7:18 AM [facility] SYOZDTZMSBUBU78<=41 U/L106/28/2024 7:18 AM [facility] LABORATORYALT4<=31 U/L106/28/2024 7:18 AM [facility] LABORATORYBILIRUBIN,TOTAL0.2(L)0.3 - 1.2 mg/dL04/27/2025 7:18 AM [facility] LABORATORYEGFR Non-Race Dependent>90>=60 ml/min/1.73sq.m 04/27/2025 7:18 AM [facility] LABORATORYComment: Reported eGFR is based on the CKD-EPI 2020 equation that does not use a race coefficient. Specimen (Source)Anatomical Location / LateralityCollection Method / Volume Collection TimeReceived TimeBloodVenous blood / UnknownVenipuncture / Unknown 04/27/2025 6:25 AM EST04/27/2025 6:42 AM EST Narrative Authorizing ProviderResult TypeResult StatusTannice Dionne HUNTER BLOOD ORDERABLESFinal ResultPerforming OrganizationAddressCity/State/ZIP CodePhone Number [facility] [address] [place] [address], * (ABNORMAL) CBC auto differential (04/27/2025 6:25 AM EST)ComponentValueRef RangeTest MethodAnalysis TimePerformed AtPathologist WtuuhdlzlCII86.1(H)4 - 11 10^9/L106/28/2024 6:52 AM [facility] LABORATORYRBC Count3.82 3.8 - 5.2 10^12/L106/28/2024 6:52 AM [facility] Phyzrwbrdu14.3(L)11.7 - 15.5 g/dL04/27/2025 6:52 AM [facility] PIOWLIDQMRWnxlszziat81.3(L)35 - 47 %04/27/2025 6:52 AM [facility] WBYDAZRMCSUST1338 - 100 fL04/27/2025 6:52 AM [facility] NWJEBFGMCPWQC88.627 - 34 pg04/27/2025 6:52 AM [facility] ZERPEBQKQPPQNM06.932 - 36 g/dL04/27/2025 6:52 AM [facility] HHHTXPBROUMWN59.611.5 - 15 %04/27/2025 6:52 AM [facility] LABORATORYPlatelet Ibtwx868500 - 450 10^9/L106/28/2024 6:52 AM [facility] LABORATORYMPV8.37 - 12 fL04/27/2025 6:52 AM [facility] LABORATORYNeutrophils %89.5%04/27/2025 6:52 AM [facility] LABORATORYLymphocytes %8.6%04/27/2025 6:52 AM [facility] LABORATORYMonocytes %1.8%04/27/2025 6:52 AM [facility] LABORATORYEosinophils %0.1%04/27/2025 6:52 AM [facility] LABORATORYBasophils %0.0%04/27/2025 6:52 AM [facility] LABORATORYNeutrophils Absolute (A)10.8(H)1.5 - 6.6 10^9/L 04/27/2025 6:52 AM [facility] LABORATORYLymphocytes Absolute 1.01.0 - 3.5 10^9/L106/28/2024 6:52 AM [facility] Monocytes Absolute0.20.0 - 0.9 10^9/L106/28/2024 6:52 AM [facility] LABORATORYEosinophils Absolute0.00.0 - 0.4 10^9/L106/28/2024 6:52 AM [facility] LABORATORYBasophils Absolute0.00.0 - 0.2 10^9/L 04/27/2025 6:52 AM [facility] LABORATORYDifferential Type AUTOMATED TWMEQDRXSEDH57/21/2025 6:52 AM [facility] LABORATORYSpecimen (Source)Anatomical Location / LateralityCollection Method / VolumeCollection TimeReceived TimeBloodVenous blood / UnknownVenipuncture / Vbtdzgg2004/27/2025 6:25 AM EST04/27/2025 6:42 AM EST Narrative Authorizing ProviderResult TypeResult StatusTansarwat Truong MDLAB BLOOD ORDERABLESFinal ResultPerforming OrganizationAddressCity/State/ZIP CodePhone Number [facility] [address] [place] [address], * Light Blue Top (04/27/2025 6:24 AM EST)ComponentValueRef RangeTest Method Analysis TimePerformed AtPathologist SignatureExtra TubeAuto Resulted 04/27/2025 8:01 AM [facility] LABORATORYSpecimen (Source) Anatomical Location / LateralityCollection Method / VolumeCollection Time Received TimeBloodVenous blood / Ymjsuvs8004/27/2025 6:24 AM EST04/27/2025 6:42 AM EST Narrative Authorizing ProviderResult TypeResult StatusDavid A Cook [facility] BLOOD ORDERABLESFinal ResultPerforming OrganizationAddressCity/State/ZIP CodePhone Number [facility] [address] [place] [address], [place] [phone] * Strep B screen (04/27/2025 2:20 AM EST)ComponentValueRef RangeTest Method Analysis TimePerformed AtPathologist SignatureCULTURE RESULTSNEGATIVE FOR GROUP B STREPTOCOCCUS BY NUCLEIC ACID QLRQAIZRKERVZ54/22/2025 9:39 AM EST [facility] LABORATORYSpecimen (Source)Anatomical Location / LateralityCollection Method / VolumeCollection TimeReceived TimeSwab (Vagina/Rectum)04/27/2025 2:20 AM EST04/27/2025 3:19 AM EST Narrative Authorizing ProviderResult TypeResult StatusTansarwat Truong MDMICROBIOLOGY - GENERAL ORDERABLESFinal ResultPerforming OrganizationAddressCity/State/ZIP Code Phone Number [facility] [address] [place] [address], [place] [phone] * Chlamydia/GC by PCR Norberto Swab (04/27/2025 2:20 AM EST)ComponentValueRef Range Test MethodAnalysis TimePerformed AtPathologist SignatureCHLAMYDIA DNA(PCR) JnosotzlQtndqgfs85/22/2025 10:39 AM [facility] Comment:Chlamydia trachomatis not detected by nucleic acid amplification. This does not exclude the possibility of infection because results are dependent on adequate specimen collection.GONORRHOEAE DNA(PCR)HykkzhnpYunkbfzz81/22/2025 10:39 AM [facility] LABORATORYComment:Neisseria gonorrhoeae not detected by nucleic acid amplification. This does not exclude the possibil ity of infection because results are dependent on adequate specimen collection.Specimen (Source)Anatomical Location / LateralityCollection Method / VolumeCollection TimeReceived TimeSwabEndocervical structure / Unknown 04/27/2025 2:20 AM EST04/27/2025 3:19 AM EST Narrative Authorizing ProviderResult TypeResult StatusTannice FogGlen Cove HospitalICROBIOLOGY - GENERAL ORDERABLESFinal ResultPerforming OrganizationAddressCity/State/ZIP Code Phone Number [facility] [address] [place] [address], * Molecular Vaginitis Panel PCR (04/27/2025 2:20 AM EST)ComponentValueRef Range Test MethodAnalysis TimePerformed AtPathologist SignatureBacterial Vaginosis DNANot DetectedNot Lmoxbkrj19/21/2025 4:27 AM [facility] LABORATORYComment:Indicator DNA target(s) related to bacterial vaginosis organisms, which include: Atopobium vaginae,Atopobium novel species, Megasphaera-1, and Bacterial Vaginosis Associated Bacteria-2 (BVAB-2), is/are Not Detected.Abena species group DNANot DetectedNot Zrptxopp21/21/2025 4:27 AM [facility] LABORATORYComment:Abena group (C. albicans and/or C. tropicalis and/or C. parapsilosis and/or C. dubliniensis) target DNA is Not Detected.Abena glabrata/krusei DNANot DetectedNot Chnpnljy51/21/2025 4:27 AM [facility] LABORATORYComment:Abena glabrata and/or Abena krusei target DNA is Not Detected.Trichomonas VaginalisNot DetectedNot Zclnnksf73/21/2025 4:27 AM [facility] LABORATORYComment: Trichomonas vaginalis target DNA is Not Detected.Specimen (Source)Anatomical Location / LateralityCollection Method / VolumeCollection TimeReceived Time SwabVaginal structure / Izgutva0004/27/2025 2:20 AM EST04/27/2025 3:19 AM EST Narrative [facility] - 04/27/2025 4:27 AM EST Assay methodology is nucleic acid amplification by real-time PCR, performed on [employer] System. Authorizing ProviderResult TypeResult StatusTannice [facility] MDMICROBIOLOGY - GENERAL ORDERABLESFinal ResultPerforming OrganizationAddressCity/State/ZIP Code Phone Number [facility] [address] [place] [address], * Resp Pathogens Panel/SARS CoV-2 (04/27/2025 2:20 AM EST)ComponentValueRef RangeTest MethodAnalysis TimePerformed AtPathologist SignatureSARS COV 2 BY PCRNot DetectedNot Rfcdkyxl68/21/2025 4:21 AM [facility] LABORATORYADENOVIRUSNot DetectedNot Tspypmbx27/21/2025 4:21 AM [facility] LABORATORYCORONAVIRUS 229ENot DetectedNot Xzqkcezd63/21/2025 4:21 AM [facility] LABORATORYCORONAVIRUS ICN3Eny DetectedNot Wtpjaggn63/21/2025 4:21 AM [facility] LABORATORYCORONAVIRUS YT18Oly DetectedNot Rydlxhhd79/21/2025 4:21 AM [facility] LABORATORYCORONAVIRUS CO90Dba DetectedNot Dfcyebkl76/21/2025 4:21 AM [facility] LABORATORYHUMAN METAPNEUVIRUSNot DetectedNot Detected 04/27/2025 4:21 AM [facility] LABORATORYRHINO/ENTEROVIRUSNot DetectedNot Kvdyxftt10/21/2025 4:21 AM [facility] INFLUENZA ANot DetectedNot Ltfubypc95/21/2025 4:21 AM [facility] LABORATORYINFLUENZA BNot DetectedNot Ipjfqmct06/21/2025 4:21 AM [facility] LABORATORYPARAINFLUENZA 1Not DetectedNot Detected 04/27/2025 4:21 AM [facility] LABORATORYPARAINFLUENZA 2Not DetectedNot Fhwxsxgh84/21/2025 4:21 AM [facility] PARAINFLUENZA 3Not DetectedNot Uiwycrzr64/21/2025 4:21 AM [facility] LABORATORYPARAINFLUENZA 4Not DetectedNot Fvjubyzc28/21/2025 4:21 AM [facility] LABORATORYRESP SYNCYTIAL VIRUSNot DetectedNot Guyzbcjd12/21/2025 4:21 AM [facility] LABORATORYBORD PARAPERTUSSISNot DetectedNot Pcbnhzfk92/21/2025 4:21 AM [facility] LABORATORYBORDETELLA PERTUSSISNot DetectedNot Eojiejld05/21/2025 4:21 AM [facility] LABORATORYCHLAM.PNEUMONIAENot DetectedNot Utksqugs64/21/2025 4:21 AM [facility] LABORATORYMYCOPLASMA PNEUMONIAENot DetectedNot Dvppoftq96/21/2025 4:21 AM [facility] LABORATORYSpecimen (Source)Anatomical Location / LateralityCollection Method / VolumeCollection TimeReceived TimeSwabNasopharyngeal structure / Yfgvjeq8204/27/2025 2:20 AM EST04/27/2025 3:19 AM [facility] - 04/27/2025 4:21 AM [facility] The Bio[employer] Respiratory Panel 2.1 (RP2.1) is [...] GENERAL ORDERABLESFinal ResultPerforming OrganizationAddressCity/State/ZIP Code Phone Number [facility] [address] [place] [address], * Rupture of membrane (ALL) (04/27/2025 1:43 AM EST)ComponentValueRef RangeTest MethodAnalysis TimePerformed AtPathologist SignatureRUPTURE OF TQINFPDHLibdhpogQnjahxcy55/21/2025 3:08 AM [facility] LABORATORYSpecimen (Source)Anatomical Location / LateralityCollection Method / VolumeCollection TimeReceived TimeSwabVaginal structure / Aaiffhx3304/27/2025 1:43 AM EST04/27/2025 2:13 AM EST Narrative Authorizing ProviderResult TypeResult StatusTansarwat Truong MDBODY FLUIDS AND STOOLS ORDERABLESFinal ResultPerforming OrganizationAddressCity/State/ZIP Code Phone Number [facility] [address] [place] [address], [place] [phone] * Antibody ID (04/27/2025 12:13 AM EST)ComponentValueRef RangeTest Method Analysis TimePerformed AtPathologist SignatureAntibody IDPassive D Antibody, Patient Received RHIG12/ 2:35 AM ESTTTH BB - WELLSKYSpecimen (Source) Anatomical Location / LateralityCollection Method / VolumeCollection Time Received TimeBloodVenous blood / UnknownVenipuncture / Uccnpfz0804/27/2025 12:13 AM EST04/27/2025 12:19 AM EST Narrative Authorizing ProviderResult TypeResult StatusTansarwat Truong MDOOD BANK TEST ORDERABLESFinal ResultPerforming OrganizationAddressCity/State/ZIP CodePhone Number [facility] [address] [place] [address], [place] * Hepatitis C Virus Quantitative by NAAT (04/27/2025 12:13 AM EST)ComponentValue Ref RangeTest MethodAnalysis TimePerformed AtPathologist SignatureHCV InterpretationNot DetectedNot Siogwxpf96/22/2025 10:38 AM [facility] LABORATORYSpecimen (Source)Anatomical Location / LateralityCollection Method / VolumeCollection TimeReceived TimeBloodVenous blood / Unknown Venipuncture / Ctcenfh2404/27/2025 12:13 AM EST04/27/2025 12:25 AM EST Narrative Authorizing ProviderResult TypeResult StatusTansarwat HUNTER BLOOD ORDERABLESFinal ResultPerforming OrganizationAddressCity/State/ZIP CodePhone Number [facility] [address] [place] [address], [place] [phone] * Type and screen (04/27/2025 12:13 AM EST)ComponentValueRef RangeTest Method Analysis TimePerformed AtPathologist XcvugsxjsXLRX60/21/2025 2:18 AM ESTTTH BB - QUYZMRSGCPtvhnnln36/21/2025 2:18 AM ESTTTH BB - WELLSKYAntibody Screen Yodsrjfn05/21/2025 2:18 AM ESTTTH BB - WELLSKYSpecimen (Source)Anatomical Location / LateralityCollection Method / VolumeCollection TimeReceived Time BloodVenous blood / UnknownVenipuncture / Skvquqk9104/27/2025 12:13 AM EST 04/27/2025 12:19 AM EST Narrative Authorizing ProviderResult TypeResult StatusTansarwat FIGUEROAOOD BANK TEST ORDERABLESEdited Result - FinalPerforming OrganizationAddressCity/State/ZIP Code Phone Number [facility] [address] [place] [phone], * (ABNORMAL) CBC auto differential (04/27/2025 12:13 AM EST)ComponentValueRef RangeTest MethodAnalysis TimePerformed AtPathologist LgkvsjvjhWVH77.74 - 11 10^9/L106/28/2024 12:57 AM [facility] LABORATORYRBC Count4.03 3.8 - 5.2 10^12/L106/28/2024 12:57 AM [facility] Yqotofloui70.011.7 - 15.5 g/dL04/27/2025 12:57 AM [facility] IBBXKEVMTRObnyjaghdo51.6(L)35 - 47 %04/27/2025 12:57 AM [facility] NUZKFZHQNWHFP7690 - 100 fL04/27/2025 12:57 AM [facility] OPLKJCWNAOYZG87.827 - 34 pg04/27/2025 12:57 AM [facility] LEXAEXJKIQVARB41.732 - 36 g/dL04/27/2025 12:57 AM [facility] VQQKPQSDWZGGP38.611.5 - 15 %04/27/2025 12:57 AM [facility] LABORATORYPlatelet Enovq729737 - 450 10^9/L106/28/2024 12:57 AM [facility] LABORATORYMPV8.87 - 12 fL04/27/2025 12:57 AM [facility] LABORATORYNeutrophils %87.8%04/27/2025 12:57 AM [facility] LABORATORYLymphocytes %10.9%04/27/2025 12:57 AM [facility] LABORATORYMonocytes %1.2%04/27/2025 12:57 AM [facility] LABORATORYEosinophils %0.0%04/27/2025 12:57 AM [facility] LABORATORYBasophils %0.1%04/27/2025 12:57 AM [facility] LABORATORYNeutrophils Absolute (A)9.4(H)1.5 - 6.6 10^9/L106/28/2024 12:57 AM [facility] LABORATORYLymphocytes Absolute1.21.0 - 3.5 10^9/L106/28/2024 12:57 AM [facility] LABORATORYMonocytes Absolute0.10.0 - 0.9 10^9/L106/28/2024 12:57 AM [facility] LABORATORYEosinophils Absolute0.00.0 - 0.4 10^9/L106/28/2024 12:57 AM [facility] LABORATORYBasophils Absolute0.00.0 - 0.2 10^9/L106/28/2024 12:57 AM [facility] LABORATORYDifferential TypeAUTOMATED OSYPSUEHLLNY28/21/2025 12:57 AM [facility] LABORATORYSpecimen (Source)Anatomical Location / LateralityCollection Method / VolumeCollection TimeReceived TimeBloodVenous blood / UnknownVenipuncture / Afpehya6404/27/2025 12:13 AM EST04/27/2025 12:25 AM EST Narrative Authorizing ProviderResult TypeResult StatusTannice Dionne HUNTER BLOOD ORDERABLESFinal ResultPerforming OrganizationAddressCity/State/ZIP CodePhone Number [facility] [address] [place] [address], * (ABNORMAL) Comprehensive metabolic panel (04/27/2025 12:13 AM EST)Component ValueRef RangeTest MethodAnalysis TimePerformed AtPathologist SignatureSODIUM 609084 - 146 mmol/L106/28/2024 12:55 AM [facility] POTASSIUM4.03.5 - 5.0 mmol/L106/28/2024 12:55 AM [facility] FZDSNWRQUANLBTXAXR24403 - 109 mmol/L106/28/2024 12:55 AM [facility] LABORATORYCARBON KRBANDR99(L)22 - 32 mmol/L106/28/2024 12:55 AM EST [facility] LABORATORYANION PXI721 - 15 mmol/L106/28/2024 12:55 AM [facility] LABORATORYBLOOD UREA JIXCETVU215 - 23 mg/dL 04/27/2025 12:55 AM [facility] LABORATORYCREATININE0.510.40 - 1.00 mg/dL04/27/2025 12:55 AM [facility] LABORATORYComment: METHOD TRACEABLE TO IDWV FGWSVZIVKEGHSGR564(H)65 - 99 mg/dL04/27/2025 12:55 AM [facility] LABORATORYCALCIUM8.0(L)8.5 - 10.5 mg/dL04/27/2025 12:55 AM [facility] LABORATORYTOTAL PROTEIN6.56.0 - 8.0 g/dL 04/27/2025 12:55 AM [facility] LABORATORYALBUMIN3.73.2 - 5.3 g/dL04/27/2025 12:55 AM [facility] LABORATORYALKALINE ADRPNVRDYXF9125 - 130 U/L106/28/2024 12:55 AM [facility] DIGCNOUSODPWC53<=41 U/L106/28/2024 12:55 AM [facility] LABORATORYALT7<=31 U/L106/28/2024 12:55 AM [facility] LABORATORYBILIRUBIN,TOTAL0.2(L)0.3 - 1.2 mg/dL04/27/2025 12:55 AM [facility] LABORATORYEGFR Non-Race Dependent>90>=60 ml/min/1.73sq.m 04/27/2025 12:55 AM [facility] LABORATORYComment: Reported eGFR is based on the CKD-EPI 2020 equation that does not use a race coefficient. Specimen (Source)Anatomical Location / LateralityCollection Method / Volume Collection TimeReceived TimeBloodVenous blood / UnknownVenipuncture / Unknown 04/27/2025 12:13 AM EST04/27/2025 12:25 AM EST Narrative Authorizing ProviderResult TypeResult StatusTannice Dionne HUNTER BLOOD ORDERABLESFinal ResultPerforming OrganizationAddressCity/State/ZIP CodePhone Number [facility] [address] [place] [address], * Syphilis Total (Unknown Syphilis Status) (04/27/2025 12:13 AM EST)Component ValueRef RangeTest MethodAnalysis TimePerformed AtPathologist Signature SYPHILIS TOTAL<0.2<=0.8 AI04/27/2025 7:02 AM [facility] LABORATORYSpecimen (Source)Anatomical Location / LateralityCollection Method / VolumeCollection TimeReceived TimeBloodVenous blood / UnknownVenipuncture / Jhbufzi7504/27/2025 12:13 AM EST04/27/2025 12:25 AM EST Narrative [facility] - 04/27/2025 7:02 AM EST NON REACTIVE No serologic evidence of infection to Treponema pallidum. Repeat testing may be considered in patients with suspected acute or primary syphilis in 2 to 4 weeks. Authorizing ProviderResult TypeResult StatusTansarwat HUNTER BLOOD ORDERABLESFinal ResultPerforming OrganizationAddressCity/State/ZIP CodePhone Number [facility] [address] [place] [address], * PST TOP (04/27/2025 12:08 AM EST)ComponentValueRef RangeTest MethodAnalysis TimePerformed AtPathologist SignatureExtra TubeAuto Bcyzejft64/21/2025 2:02 AM [facility] LABORATORYSpecimen (Source)Anatomical Location / LateralityCollection Method / VolumeCollection TimeReceived TimeBloodVenous blood / Ihkcvlg1104/27/2025 12:08 AM EST04/27/2025 12:26 AM EST Narrative Authorizing ProviderResult TypeResult StatusDaorlando Cook MDLAB BLOOD ORDERABLESFinal ResultPerforming OrganizationAddressCity/State/ZIP CodePhone Number [facility] [address] [place] [address], * Light Blue Top (04/27/2025 12:08 AM EST)ComponentValueRef RangeTest Method Analysis TimePerformed AtPathologist SignatureExtra TubeAuto Resulted 04/27/2025 2:02 AM [facility] LABORATORYSpecimen (Source) Anatomical Location / LateralityCollection Method / VolumeCollection Time Received TimeBloodVenous blood / Axluehe1904/27/2025 12:08 AM EST04/27/2025 12:26 AM EST Narrative Authorizing ProviderResult TypeResult StatusDavid Kya HUNTER BLOOD ORDERABLESFinal ResultPerforming OrganizationAddressCity/State/ZIP CodePhone Number [facility] [address] [place] [address], [place] [phone] documented in this encounter Visit Diagnoses Diagnosis [...] 2359, L&D Pre-Delivery Given04/27/2025 4:03 PM EST1,000 cdChlhr0704/27/2025 7:03 AM EST1,000 mgGiven 04/27/2025 2:24 AM [...] mL/hrNew Bag04/27/2025 3:16 PM EST2,000 mg200 mL/hrRate/Dose Nivpsz4604/27/2025 9:10 AM EZM719 mL/hr betamethasone acet & sod phos (CELESTONE) [...] 500 mg calcium carbonate Given04/27/2025 9:16 PM YFZ762 bhRbsgp0804/27/2025 1:55 AM JRN978 mg calcium gluconate injection 1,000 mg 1,000 [...] doses, L&D Pre-Delivery New Bag04/27/2025 9:48 PM CIR317 mg105 mL/hrNew Bag04/27/2025 4:04 PM URI361 mg 105 mL/hrNew Bag04/27/2025 9:52 AM FNY974 mg105 mL/hr glucagon HCL injection 1 mg [...] Once, On Mon04/27/25 at 0545, For1 dose Sojyldblx10/21/2025 6:47 AM RPF497 mL/hrRate/Dose Mfjnur8604/27/2025 6:00 AM EST 984 mL/hrNew Bag04/27/2025 5:40 AM EST1,000 mL984 mL/hr lactated ringers infusion 250 mL/hr, intravenous, Continuous PRN, to improve utero-placental perfusion and/or relieve cord compression, Starting on 04/26/25 at 2359, For 1 day, L&D Pre-Delivery lactated ringers infusion 75 mL/hr, intravenous, Continuous, Starting on 04/27/25 at 0430, For 1 day Olrebgktp45/21/2025 10:52 AM EST75 mL/wdMdvmxytuk74/21/2025 9:35 AM EST75 mL/hr Muxdyuaaf16/21/2025 8:08 AM EST75 mL/hr75 mL/hr magnesium sulfate [...] minutes. Given04/27/2025 5:35 AM EST4 mg PNV,calcium 98-lojn-yqhng acid ( PLUS) 27 mg iron- 1 mg tablet 1 tablet 1 tablet, oral, Daily, First dose on 04/27/25 at 0900, L&D Pre-Delivery Given04/27/2025 9:08 AM EST1 tablet sodium chloride 0.9 % flush 3 mL 3 mL, intravenous, Every 8 hours, First dose on 04/27/25 at 0015, L&D Pre- Delivery, Flush peripheral line per protocol Given04/27/2025 5:08 PM EST3 hSXorjp0104/27/2025 9:07 AM EST3 mL sodium chloride 0.9 % flush 3 mL 3 mL, intravenous, As needed, line care, to maintain patency, Starting on Mon04/27/25 at 0000, L&D Pre-Delivery valACYclovir (VALTREX) tablet 1,000 mg 1,000 mg, oral, 2 times daily, First dose on Mon04/27/25 at 0930, Look-alike/sound-alike medication - verify indication for use., Indication: Mucocutaneous HSV Given04/27/2025 9:13 PM EST1,000 plNquzs6504/27/2025 11:07 AM EST1,000 mg documented in this [...] RN) * 0337 (Stop Bag - Provider: eKnia Perez, RN) * 0337 (Stop Bag - [...] (Given - Provider: Kenia Perez RN) PNV,calcium 02-ckzk-suopl acid ( PLUS) 27 mg iron- 1 [...] follow-up plan has been documented for the snzflem0909/11/2018 4:32 PM EDTdocumented as of this encounter Care Teams Team MemberRelationshipSpecialtyStart DateEnd Date Rebecca Rizvi APRN-JEYSON [address] [place] [phone] PCP - GeneralNurse Practitioner08/23/22documented as of this encounter
--- OUTSIDE RECORDS SUMMARY | 2025-05-05 11:30 | XMS_ITS ---
Author Organization [employer] [facility] tem Address [id number] [address] [place] [address] Care Team Providers Care Director Student Union Name Role Phone Rebecca Rizvi APRN-JEYSON Primary Care Provider Transitional Care Management Status:Closed (Closed) Start date:04/27/2025 Enrollment date:04/27/2025 End date:04/28/2025 Close reason:Does not meet criteria Continued Care and Services Coordination
--- OUTSIDE RECORDS SUMMARY | 2025-05-05 11:31 | XMS_ITS | Clinical Summary ---
Author Organization [facility] Healthcare Address [address] [place] [address] Care Team Providers Care Eyeglass Inspector Name Role Phone Rebecca Rizvi MD Primary Care Provider [phone] Allergies No known active allergies Medications MedicationSigDispense QuantityRefillsLast FilledStart DateEnd DateStatus biotin 5 MG capsule Take 5 mg by mouth in the morning.5Active Docusate Sodium (DSS) 100 MG capsule Indications:Constipation during in second trimester ([facility])Take 1 capsule (100 mg) by mouth in the morning and 1 capsule (100 mg) before bedtime. 60 capsule 5Active Vit-Fe Fumarate-FA ( Vitamins) 28-0.8 MG tablet Indications:Positive urine test ([facility]),, unspecified gestational age ([facility]),Encounter for supervision of normal first in first trimester ([facility])Take 1 tablet by mouth Daily 30 tablet 5Active acetaminophen (Tylenol) 160 MG/5ML liquid Indications:Nonintractable headache, unspecified chronicity pattern, unspecified headache typeTAKE 20.3 ML BY MOUTH EVERY 6 HOURS NEEDED FOR HEADACHES FOR UP TO 10 DAYS Strength: 160 MG/5ML 120 mL 5Active famotidine (Pepcid) 20 MG tablet Indications:Heartburn during in second trimester ([facility])Take 2 tablets (40 mg) by mouth in the morning. 60 tablet 6Active famotidine (Pepcid) 20 MG tablet Indications:Heartburn during in second trimester ([facility])Take 1 tablet (20 mg) by mouth in [...] MG tablet Indications:Heartburn during in second trimester ([facility])Take 2 tablets (40 mg) by mouth in the morning. 60 tablet Discontinued(Reorder) Active Problems ProblemNoted DateDiagnosed DateMultigravida of advanced maternal age in second trimester ([facility])03/13/2025H/O LEEP105/13/2024HSV (herpes simplex virus) nqqimxwgr01/06/2025arrier of genetic defect for xbwjjsehnkfs08/06/2025Twin gestation in second trimester ([facility])03/13/2025Estimated Date of FiswxdghWhoebpdmUuk84/11/2026Based on Ultrasound Encounters DateTypeDepartmentCare YtfiRkkphycagvz20/26/2025linisync Result Encounter NOMS External Department Unsolicited Mamadou Hayden, DO 04/30/2025linisync Result Encounter NOMS External Department Unsolicited Mamadou Hayden, DO 04/29/2025Telephone [facility] OBASHTYNN [address] [place] [address] Evelyn Kee LPN 04/29/2025Telephone [facility] PERALTA [address] [place] [address] Sosa Funes MA 04/26/2025linisync Result Encounter NOMS External Department Unsolicited Mamadou Hayden, DO 04/26/2025linisync Result Encounter NOMS External Department Unsolicited Mamadou Hayden, DO 04/26/2025linisync Result Encounter NOMS External Department Unsolicited Mamadou Hayden, DO 04/23/2025 1:40 PM ESTRoutine [facility] [place] [facility] [address] [place] [address] Mamadou Hayden, DO Third trimester ([facility]); 28 weeks gestation of ([facility]); Multigravida of advanced maternal age in second trimester ([facility]); Twin following selective reduction, antepartum ([facility]) 04/23/2025amboo flowsheet [facility] [address] [place] [address] Mamadou Hayden, DO 04/16/2025Telephone [facility] [address] [place] [phone] Sosa Funes MA 04/15/2025Refill [facility] [place] [facility] [address] [place] [address] Sosa Funes, ERIN Heartburn during in second trimester ([facility])04/14/2025Telephone [facility] [address] [place] [address] Janett Zheng PA 04/10/2025 1:30 PM ESTRoutine [facility] [address] [place] [address] Janett Zheng PA Second trimester ([facility]); 26 weeks gestation of ([facility])04/10/2025linisync Result Encounter NOMS External Department Unsolicited Mamadou Hayden, DO 04/10/2025amboo flowsheet [facility] [place] [facility] [address] [place] [address] Janett Zheng PA 04/08/2025Telephone [facility] [address] [place] [address] Evelyn Kee LPN 03/18/2025bstract [facility] [address] 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 [address] [place] [phone] Janett Limon LPN 03/13/2025amboo flowsheet [facility] [address] [place] [address] Mamadou Hayden, DO 03/12/2025bstract [facility] [address] [place] [address] Mamadou Hayden, DO 03/11/2025External Result Encounter [facility] [place] [address] Mamadou Hayden, DO 03/04/2025linisync Result Encounter NOMS External Department Unsolicited Mamadou Hayden, DO 02/20/2025Refill [facility] ADAMSGYN [address] [place] [address] Janett Zheng PA Nonintractable headache, unspecified chronicity pattern, unspecified headache type02/20/2025Telephone [facility] [address] [place] [address] Mamadou Hayden, DO 02/19/2025bstract [facility] [place] [facility] [address] [place] [address] Mamadou Hayden, DO 02/19/2025bstract [facility] [address] [place] [address] Mamadou Hayden, DO 02/12/2025 3:20 PM EDTRoutine N[facility] [place] [facility] [address] [place] [address] Jaylin Chung, NATHANIEL Second trimester ([facility]); 18 weeks gestation of ([facility])5Clinisync Result Encounter NOMS External Department Unsolicited Mamadou Hayden, DO 02/12/2025amboo flowsheet [facility] [place] [facility] [address] [place] [address] Jaylin Chung, NATHANIEL 02/10/2025Telephone [facility] [place] [facility] [address] [place] [address] Sosa Funes MA from Last 3 Months Social History Tobacco UseTypesPacks/DayYears UsedDateSmoking Tobacco: Never Assessed Estimated Date of UxtwjxtoGqtxvztiYig25/11/2026Based on UltrasoundSex and Gender InformationValueDate RecordedSex Assigned at BirthNot on fileLegal SexFemale 07/20/2022 6:43 PM EDTGender IdentityNot on fileSexual OrientationNot on file Last Filed Vital Signs Vital SignReadingTime TakenCommentsBlood Zaiywkho579/7012/ 1:54 PM EST Pulse--Temperature--Respiratory Rate--Oxygen Saturation--Inhaled Oxygen Concentration--Symoas16.9 kg (185 lb)04/23/2025 1:54 PM ESTHeight--Body Mass Index-- Plan of Treatment DateTypeDepartmentCare Team (Latest Contact Info)Henzoyavsrz80/31/2025 10:20 AM ESTRoutine NOMS [facility] GARRIDON [address] [place] [phone] Jaylin Chung, MANAGER [place] [address] [place] [address] 05/21/2025 3:50 PM ESTRoutine NOMS [facility] PERALTA [address] [place] [address] Mamadou Hayden DO [address] [place] [address] Procedures Procedure NamePriorityDate/TimeAssociated DiagnosisCommentsUS OB BPP W NON-BBLIYQ8505/02/2025 11:25 AM EST US OB BPP W NON-ZMLBJQ8804/30/2025 12:06 PM EST ALL CBC WITH AUTO QWCOTbivqfz41/20/2025 6:50 PM EST US OB RGEPZHYV82/20/2025 5:17 PM EST US OB CERVICAL THJEJT9104/26/2025 5:17 PM EST ZUVLWSGGFpqvlpe01/20/2025 3:25 PM EST [facility] UA (CLEAN/CATCH) DAY HAUL YOUTH SUPERVISOR/MICRO IF IND.Ojfnrne8604/26/2025 3:25 PM EST POCT URINALYSIS OBRDSYKLVzaeeoe30/17/2025 2:02 PM EST 28 weeks gestation of ([facility]) GLUCOSE 1 GZPMWlwaeas50/04/2025 1:29 PM EST ALL CBC WITH AUTO VMNXTgwibop92/04/2025 1:29 PM EST RECURRENT VAGINITIS (HTRX)Jyjhtek3703/13/2025 11:37 AM EST POCT URINALYSIS XAWZIVPGRkkhjdb93/06/2025 10:18 AM EST Second trimester ([facility]) US OB 14+ WEEKS ANATOMY SCAN03/11/2025 3:30 PM EST ALL MISCELLANEOUS NPUCNdwgrxp35/28/2025 12:49 PM EDT ALL VITAMIN Z4Qwwewnq54/08/2025 5:26 PM EDT AFP, SERUM, OPEN SPINA VKNZLQVbaskly61/08/2025 5:26 PM EDT BOX MOJDVorqjrr82/08/2025 5:26 PM EDT from Last 3 Months Results * US OB BPP W NON-STRESS (05/02/2025 11:25 AM EST) Only the most recent of2 resultswithin the time period is included. Anatomical RegionLateralityModalityOtherSpecimen (Source)Anatomical Location / LateralityCollection Method / VolumeCollection TimeReceived Time05/02/2025 11:25 AM EST Narrative 05/02/2025 11:28 AM EST [facility] ?[address] ? [place] [address] ? Ultrasound Report ? Signed ? Patient: DESMOND,MADI N ?MR#: [id number] ?? : 1990 ?Acct:[id number] ?? Age/Sex: 34 / F ?ADM Date: 05/02/25 ?? Loc: [facility] ??250-1 ? Attending Dr: Mamadou Hayden D.O. ? Ordering Physician: Mamadou Hayden D.O. ?? Date of Service: 05/02/25 ?? Procedure(s): US OB BPP w non-stress ?? Accession Number(s): [id number] ? cc: Mamadou Hayden D.O.; Rebecca Rizvi MANAGER [place] ? [facility] ? [address] ? [place] [address] ? Patient Name: ?? MADI LOGAN ? MRN: [facility]:[id number] ? date: 1990 ?Sex: F ?? Assigned Patient Location: [facility] ?? Current Patient Location: [facility] ?? Accession/Order Number: [id number] ?? Exam Date: 05/02/2025 ??10:35 ?Report Date: 05/02/2025 ??11:25 ? At the request of: ?? MAMADOU ??JACKELYN ??DO ? Procedure: ??US OB BPP w non-stress ? BIOPHYSICAL PROFILE: ? CLINICAL INFORMATION: Twin following selective reduction ? COMPARISON: 04/30/2025 ? There is a twin with known demise of fetus A. ??Fetus B is in ?? cephalic presentation. ??The reported gestational age is 29 weeks 2 days. ??The ?? heart rate for fetus B measures 155 beats per minute. ? FINDINGS: ? TONE: 1 or more episodes of [...] 2 cm ? [Y] ? 2/2 ?PAMELA: 13.8 cm ? Total score: ? 8/8 ? US/US OB BPP w non-stress ?? IMPRESSION: ? TWIN WITH SELECTIVE DEMISE OF FETUS A. ? NORMAL BIOPHYSICAL PROFILE FOR FETUS B. ? Impression dictated by: Malena Salcido M.D. ??05/02/2025 11:25 AM ? Dictation Location: RADIO-PC-30 ? Electronically authenticated by: [id number] ??Y ?? Date: 05/02/2025 ??11:25 ? Dictated By: ?Malena Salcido M.D. ? Signed By: ?05/02/25 1128 ? DD/ ? TD/TT: ? Chemistry Technician: Procedure Note Radiology, Radiologist, - 05/02/2025 [place] [address] Ultrasound Report Signed Patient: MADI LOGAN [facility]#: [id number] : 1990Acct:[id number] Age/Sex: 34 / FADM Date: 05/02/25 Loc: [facility] 250-[address]: Mamadou Hayden D.O. Ordering Physician: Mamadou Hayden D.O. Date of Service: 05/02/25 Procedure(s): US OB BPP w non-stress Accession Number(s): [id number] cc: Mamadou Hayden D.O.; Rebecca Rizvi NP [place] [address] Patient Name: MADI LOGAN MRN: [id number] date: 1990 Sex: F Assigned Patient Location: [facility] Current Patient Location: [facility] Accession/Order Number: [id number] Exam Date: 05/02/2025 10:35 Report Date: 05/02/2025 11:25 At the request of: MAMADOU HAYDEN DO Procedure: US OB BPP w non-stress BIOPHYSICAL PROFILE: CLINICAL INFORMATION: Twin following selective reduction COMPARISON: 04/30/2025 There is a twin with known demise of fetus A. Fetus B is in cephalic presentation. The reported gestational age is 29 weeks 2 days.The heart rate for fetus B measures 155 beats per minute. FINDINGS: TONE: 1 or more episodes of activity [...] greater than 2 cm [Y] 2/2 PAMELA: 13.8 cm Total score: 8/8 US/US OB BPP w non-stress IMPRESSION: TWIN WITH SELECTIVE DEMISE OF FETUS A. NORMAL BIOPHYSICAL PROFILE FOR FETUS B. Impression dictated by: Malena Salcido M.D. 05/02/2025 11:25 AM Dictation Location: [place] [address] Electronically authenticated by: [id number] Y Date: 1:25 Dictated By: Malena Salcido M.D. Signed By:05/02/25 1128 DD/ 1125 TD/TT: Chemistry Technician: Authorizing ProviderResult TypeResult StatusCorey Jackelyn DOCLINISYNC IMAGINGFinal [...] - 35.2 g/dLTBHTBH RDW13.011.0 - 15.0 %TBHTBH CTI082973 - 450 10 3/uLTBHTBH MPV10.59.5 - 13.5 [...] EST Narrative 04/26/2025 5:20 PM EST [facility] ?[address] ? [place] [address] ? Ultrasound Report ? Signed ? Patient: NEYPHUONGMADI N ?MR#: [id number] ?? : 1990 ?Acct:[id number] ?? Age/Sex: 34 / F ?ADM Date: 04/26/25 ?? Loc: [facility] ??250-1 ? Attending Dr: Mamadou Hayden D.O. ? Ordering Physician: Mamadou Hayden D.O. ?? Date of Service: 04/26/25 ?? Procedure(s): US OB placenta ?? Accession Number(s): [id number] ? cc: Mamadou Hayden D.O.; Rebecca Rizvi MANAGER [place] ? [facility] ? [address] [place] [address] ? [place] [address] ? Patient Name: ?? MADI LOGAN ? MRN: [facility]:[id number] ? date: 1990 ?Sex: F ?? Assigned Patient Location: [facility] ?? Current Patient Location: [facility] ?? Accession/Order Number: [id number] ?? Exam Date: 04/26/2025 ??16:29 ?Report Date: [...] Dictation Location: RADIO-PC-18 ? Electronically authenticated by: [id number] ??Y ?? Date: 04/26/2025 ??17:17 ? Dictated By: ?Howard Huang M.D. ? Signed By: ?04/26/25 1720 ? DD/ 1717 ? TD/TT: ? Chemistry Technician: Procedure Note Radiology, Radiologist, MD - 04/26/2025 [place] [address] Ultrasound Report Signed Patient: MADI LOGAN NMR#: [id number] : 1990Acct:[id number] Age/Sex: 34 / FADM Date: 04/26/25 Loc: [facility] 250-[address]: Mamadou Hayden D.O. Ordering Physician: Mamadou Hayden D.O. Date of Service: 04/26/25 Procedure(s): US OB placenta Accession Number(s): [id number] cc: Mamadou Hayden D.O.; Rebecca Rizvi [place] [address] Patient Name: MADI LOGAN MRN: [id number] date: 1990 Sex: F Assigned Patient Location: [facility] Current Patient Location: [facility] Accession/Order Number: [id number] Exam Date: 04/26/2025 16:29 Report Date: 04/26/2025 [...] Jr., D.O. 04/26/2025 5:17 PM Dictation Location: [facility]--18 Electronically authenticated by: [id number] Y Date: :17 Dictated By: Howard Huang M.D. Signed By:04/26/25 1720 DD/ 16 TD/TT: Chemistry Technician: Authorizing ProviderResult TypeResult StatusCorey Jackelyn ESCOBEDOLINISYNC IMAGINGFinal Result * US OB CERVICAL LENGTH (04/26/2025 5:17 PM EST)Anatomical RegionLaterality ModalityOtherSpecimen (Source)Anatomical Location / LateralityCollection Method / VolumeCollection TimeReceived Time04/26/2025 5:17 PM EST Narrative 04/26/2025 5:20 PM EST [facility] ?[address] ? [place] [address] ? Ultrasound Report ? Signed ? Patient: ELMES,MADI N ?MR#: [id number] ?? : 1990 ?Acct:[id number] ?? Age/Sex: 34 / F ?ADM Date: 04/26/25 ?? Loc: [facility] ??250-1 ? Attending Dr: Mamadou Hayden D.O. ? Ordering Physician: Mamadou Hayden D.O. ?? Date of Service: 04/26/25 ?? Procedure(s): US OB cervical length ?? Accession Number(s): [id number] ? cc: Mamadou Hayden D.O.; Rebecca Rizvi MANAGER [place] ? [facility] ? [address] ? [place] [address] ? Patient Name: ?? MADI LOGAN ? MRN: [facility]:[id number] ? date: 1990 ?Sex: F ?? Assigned Patient Location: [facility] ?? Current Patient Location: [facility] ?? Accession/Order Number: [id number] ?? Exam Date: 04/26/2025 ??16:20 ?Report Date: [...] Dictation Location: RADIO-PC-18 ? Electronically authenticated by: [id number] ??Y ?? Date: 04/26/2025 ??17:17 ? Dictated By: ?Howard Huang M.D. ? Signed By: ?04/26/250 ? DD/ 1717 ? TD/TT: ? Chemistry Technician: Procedure Note Radiology, Radiologist, MD - 04/26/2025 [place] [address] Ultrasound Report Signed Patient: MADI LOGAN NMR#: [id number] : 1990Acct:[id number] Age/Sex: 34 / FADM Date: 04/26/25 Loc: [facility] 250-[address]: Mamadou Hayden D.O. Ordering Physician: Mamadou Hayden D.O. Date of Service: 04/26/25 Procedure(s): US OB cervical length Accession Number(s): [id number] cc: Mamadou Hayden D.O.; Rebecca Rizvi MANAGER [place] [facility] [place] [id number] Patient Name: MADI LOGAN MRN: [id number] date: 1990 Sex: F Assigned Patient Location: [facility] Current Patient Location: [facility] Accession/Order Number: [id number] Exam Date: 04/26/2025 16:20 Report Date: 04/26/2025 [...] Jr., D.O. 04/26/2025 5:17 PM Dictation Location: [place] [address] Electronically authenticated by: [id number] Y Date: 7:17 Dictated By: Howard Huang M.D. Signed By:04/26/25 172 DD/ 16 TD/TT: Chemistry Technician: Authorizing ProviderResult TypeResult StatusCorey Jackelyn DOCLINISYNC IMAGINGFinal [...] CLINISYNC [facility] * (ABNORMAL) [facility] UA (CLEAN/CATCH) DAY HAUL YOUTH SUPERVISOR/MICRO IF IND. (04/26/2025 3:25 PM EST) [...] Jackelyn DOCLINISYNCFinal Result Performing OrganizationAddressCity/State/ZIP CodePhone Number CLINCONNIE [facility] * (ABNORMAL) POCT urinalysis dipstick manually [...] / Laterality Collection Method / VolumeCollection TimeReceived IcmnHrvjx45/17/2025 2:02 PM EST Narrative Authorizing ProviderResult TypeResult StatusCoreindy Hayden DOPOINT OF CARE TEST ENTER/EDIT ORDERABLESFinal Result * GLUCOSE 1 HOUR (04/10/2025 1:29 PM EST)ComponentValueRef RangeTest Method Analysis TimePerformed AtPathologist SignatureGLUCOSE 1 KKZZ481<130 mg/dLTBH Specimen (Source)Anatomical Location / LateralityCollection Method / Volume Collection TimeReceived Time04/10/2025 1:29 PM EST04/10/2025 1:40 PM EST Narrative FARNAZ - 04/10/2025 2:00 PM EST Authorizing ProviderResult TypeResult StatusCorey JackelynPres[facility] BLOOD ORDERABLES Final ResultPerforming OrganizationAddressCity/State/ZIP CodePhone Number FARNAZ [facility] * RECURRENT VAGINITIS (HTRX) (03/13/2025 11:37 AM EST)ComponentValueRef Range Test MethodAnalysis TimePerformed AtPathologist SignatureATOPOBIUM VAGINAE0 19.961 - 24.689 ppm03/14/2025 7:09 AM ESTHealthTrackRx at LabPortATOPOBIUM VAGINAENot Qfgqhsjs96.961 - 24.689 ppm03/14/2025 7:09 AM ESTHealthTrackRx at LabPortBVAB 2,3 (BACTERIAL VAGINOSIS ASSOCIATED BACTERIA 2, 3); MOBILUNCUS SPP 019.961 - 24.689 ppm03/14/2025 7:09 AM ESTHealthTrackRx at LabPortBVAB 2,3 (BACTERIAL VAGINOSIS ASSOCIATED BACTERIA 2, 3); MOBILUNCUS SPPNot Detected 19.961 - 24.689 ppm03/14/2025 7:09 AM ESTHealthTrackRx at LabPortCANDIDA ALBICANS, PARAPSILOSIS, NRRHIBUXMH748.000 - 30.347 ppm03/14/2025 7:09 AM EST [facility] at LabPortCANDIDA ALBICANS, PARAPSILOSIS, TROPICALISNot Detected 23.000 - 30.347 ppm03/14/2025 7:09 AM ESTHealthTrackRx at LabPortCANDIDA LUNHAWFY868.000 - 31.618 ppm03/14/2025 7:09 AM ESTHealthTrackRx at LabPort BRAN GLABRATANot Dtqjffsj93.000 - 31.618 ppm03/14/2025 7:09 AM EST [facility] at LabPortCANDIDA SAWOCE939.000 - 30.873 ppm03/14/2025 7:09 AM ESTHealthTrackRx at LabPortCANDIDA KRUSEINot Kpqshmmi33.000 - 30.873 ppm 03/14/2025 7:09 AM ESTHealthTrackRx at LabPortCHLAMYDIA CDXCOCVVMEB418.000 - 31.586 ppm03/14/2025 7:09 AM ESTHealthTrackRx at LabPortCHLAMYDIA TRACHOMATIS Not Fxhaslfj77.000 - 31.586 ppm03/14/2025 7:09 AM ESTHealthTrackRx at [facility]Port GARDNERELLA PNUGNUEWU251.961 - 24.689 ppm03/14/2025 7:09 AM ESTHealthTrackRx at LabPortGARDNERELLA VAGINALISNot Msxutxrz19.961 - 24.689 ppm03/14/2025 7:09 AM ESTHealthTrackRx at LabPortMEGASPHAERA (TYPES 1, 2)019.961 - 24.689 ppm 03/14/2025 7:09 AM ESTHealthTrackRx at LabPortMEGASPHAERA (TYPES 1, 2)Not Gipoxiov83.961 - 24.689 ppm03/14/2025 7:09 AM ESTHealthTrackRx at [facility] NEISSERIA LKXPSKJIEKB282.000 - 32.587 ppm03/14/2025 7:09 AM ESTHealthTrackRx at LabPortNEISSERIA GONORRHOEAENot Wtcbnisw71.000 - 32.587 ppm03/14/2025 7:09 AM ESTHealthTrackRx at LabPortTRICHOMONAS SWIUDFXCW967.000 - 31.995 ppm 03/14/2025 7:09 AM ESTHealthTrackRx at LabPortTRICHOMONAS VAGINALISNot Vfjjhtpe10.000 - 31.995 ppm03/14/2025 7:09 AM ESTHealthTrackRx at [facility] MYCOPLASMA JOWTZQWYPS931.961 - 24.689 ppm03/14/2025 7:09 AM ESTHealthTrackRx at LabPortMYCOPLASMA GENITALIUMNot Ychnwogo39.961 - 24.689 ppm03/14/2025 7:09 AM ESTHealthTrackRx at LabPortSpecimen (Source)Anatomical Location / LateralityCollection Method / VolumeCollection TimeReceived TimeTissue 03/13/2025 11:37 AM EST03/14/2025 1:59 AM EST Narrative Authorizing ProviderResult TypeResult StatusCorey Jackelyn DOLAB BLOOD ORDERABLES Final ResultPerforming OrganizationAddressCity/State/ZIP CodePhone Number [facility] [address] [place] [address] * US OB 14+ weeks anatomy scan (03/11/2025 3:30 PM EST)Anatomical Region LateralityModalityBodyUltrasoundSpecimen (Source)Anatomical Location / LateralityCollection Method / VolumeCollection TimeReceived Time03/11/2025 3:30 PM EST Narrative 03/11/2025 3:30 PM EST THIS EXAM WAS PERFORMED AT [facility] NAME: ??DESMOND GUTIERREZ : 1990 SEX: F Accession Number: [id number] ORDERING PHYSICIAN: MAMADOU HAYDEN REFERRING PHYSICIAN: MAMADOU HAYDEN Coding Procedures ? 60018: Ultrasound, uterus, real time with image documentation, and maternal evaluation ? plus detailed anatomic examination, transabdominal approach;single or first gestation. 2 ? 88553: Ultrasound, uterus, real time with image documentation, [...] view: limited by position and activity. Medical Television Newscast Director Television Newscast Director declined Twin . Number of fetuses: 2. [...] (oz) ? 14 oz EFW by: ?Hadlock (LAZ-SM-WW-FL) Extended Tibia ??31.1 mm 21w 3d 40% [employer] Operations Manager ? 10.4 mm CM ? 3.6 [...] (oz) ? 2 oz EFW by: ?Hadlock (SQM-KO-PG-FL) Extended Tibia ??32.2 mm 21w 6d 57% [employer]iana [employer] Operations Manager ? 5.4 mm CM ? 6.0 [...] Face: Orbits. Heart/Thorax: 4-chamber view. 3-vessel view. 5-kpjeds-wcpsimy view. Situs. Aortic arch view. Bicaval view. [...] Lips. Nose. Heart / Thorax 4-chamber view. 1-suourx-ylqpfbl view. Situs. Aortic arch view. Cardiac rhythm. [...] primary OB provider unless otherwise specified by M. Results forwarded to ordering provider so they can follow up with the patient as necessary. Procedure Note Radiology, Radiologist, MD - 03/11/2025 THIS EXAM WAS PERFORMED AT [facility] NAME: DESMOND GUTIERREZ Brigette : 1990 SEX: F Accession Number: [id number] ORDERING PHYSICIAN: MAMADOU HAYDEN REFERRING PHYSICIAN: MAMADOU HAYDEN Coding Procedures 98923: Ultrasound, uterus, real time with image documentation, and maternal evaluation plus detailed anatomic examination, transabdominalapproach;single or first gestation. 2 [address]698: Ultrasound, uterus, real time with imagedocumentation, transvaginal [...] Suboptimalview: limited by position and activity. Medical Television Newscast Director Television Newscast Director declined Twin . Number of fetuses: 2. [...] EFW (oz) 14 oz EFW by: Hadlock (FZQ-KI-MK-FL) Extended Tibia 31.1 mm 21w 3d 40% [employer]iana [employer] Operations Manager 10.4 mm CM 3.6 mm 5% [...] EFW (oz) 2 oz EFW by: Hadlock (JZM-US-MY-FL) Extended Tibia 32.2 mm 21w 6d 57% [employer]iana Ge[employer] Operations Manager 5.4 mm CM 6.0 mm 68% [...] Face: Orbits. Heart/Thorax: 4-chamber view. 3-vessel view. 3-uupgze-fxezdnd view. Situs.Aortic arch view. Bicaval view. Cardiac [...] Lips. Nose. Heart / Thorax 4-chamber view. 6-wiyvuc-klgrhah view. Situs. Aortic archview. Cardiac rhythm. Abdomen [...] byprimary OB provider unless otherwise specified by [facility]. Results forwarded to ordering provider so they can follow up with thepatient as necessary. Authorizing ProviderResult TypeResult StatusCorey Jackelyn LA OB US PROCEDURES Final Result * ALL MISCELLANEOUS TEST (03/04/2025 12:49 PM EDT)ComponentValueRef RangeTest MethodAnalysis TimePerformed AtPathologist SignatureMISCELLANEOUS TESTCOMMENT. TBHComment: Test Ordered: [id number] Hvflqgcwg-9-Rqcflxmba, RBC Gsgrnptpi-8-Jafmzrexh, RBC <0.3 mg/dL ML ?? Reference Range: . REFERENCE VALUE Reference interval (normal range): <=0.9 Therapeutic range: <=4.9 ADDITIONAL INFORMATION Liquid Chromatography-Tandem Mass Spectrometry (LC-MS/MS) This test was developed and its performance characteristics determined by [facility] in a manner consistent with CLIA requirements. This test has not been cleared or approved by the U.S. Food and Drug Administration. Performed at: ??ML - [facility] [address] ??[id number] Examination Proctor: Kellen De La Paz PhD, Phone: ??[phone] Performed at: ??CB - [facility] [address] ??[id number] Examination Proctor: Jose Rainey PhD, Phone: ??[phone] Specimen (Source)Anatomical Location / LateralityCollection Method / Volume Collection TimeReceived Time03/04/2025 12:49 PM EDT1 12:59 PM EDT Narrative CLINISYNC - 03/14/2025 5:09 PM EST [id number] Kezqseron-7-Usxoobpoq, RBC Authorizing ProviderResult TypeResult StatusCorey Jackelyn DOCLINISYNCFinal Result Performing OrganizationAddressCity/State/ZIP CodePhone Number FARNAZ NIXON * BOX TEST (02/12/2025 5:26 PM EDT)ComponentValueRef RangeTest MethodAnalysis TimePerformed AtPathologist SignatureBOX TEST SENT QWUGQGUCWSFXTB0BJUFGSCXFNW3 02/12/2025TBHSpecimen (Source)Anatomical Location / LateralityCollection Method / VolumeCollection TimeReceived Time02/12/2025 5:26 PM EDT1 5:46 PM EDT Narrative CHARLOTTENC - 02/12/2025 5:59 PM EDT Authorizing ProviderResult TypeResult StatusCorey Jackelyn DOLAB BLOOD ORDERABLES Final ResultPerforming OrganizationAddressCity/State/ZIP CodePhone Number FARNAZ [facility] * AFP, SERUM, OPEN SPINA BIFIDA (02/12/2025 5:26 PM EDT)ComponentValueRef Range Test MethodAnalysis TimePerformed AtPathologist SignatureRESULTSReport.TBHTEST RESULTS:*Screen Negative*.TBHGEST. AGE ON COLLECTION DATE18.0. weeksTBH GESTAT. AGE BASED ONUltrasound.TBHComment: ?18.0 on 02/12/2025 Recalculations are not recommended when gestational dating by LMP and ultrasound are within 10 days. MATERNAL AGE AT EDD35.7. yrTBHRACECaucasian.REYTQNJVG583. lbsTBHINSULIN DEP DIABETESNo.TBHMULTIPLE GESTATIONTwins.TBHAFP HSNZE975.6. ng/mLTBHAFP MOM3.18.TB OSBR RISK 1 IN304.TBHINTERPRETATIONComment.TBHComment: Interpretation: Screen Negative [...] Customer Services to discuss available options. ??The [employer] recommends amniocentesis be offered to women age 35 and older. COMMENT:Comment.TBHComment: Kenia Schreiber, Ph.D., [facility] Director References: Available Upon Request. Multiples Of Median Cutoffs ?For AFP Elevations Palmer ?? 2.5 ? Black ?2.8 IDD ? 2.0 ? Twins ?4.5 ?Abbreviation Definitions IDD - Insulin Dep Diabetes OSBR - Open Spina Bifida Risk For further inquiries contact [employer] [facility] at [phone]. This test was developed and its performance characteristics determined by [facility]. It has not been cleared or approved by the Food and Drug Administration. Performed at: ??TG - [facility] [address] [place], [place] ??[id number] Examination Proctor: [facility], Phone: ??[phone] Specimen (Source)Anatomical Location / LateralityCollection Method / Volume Collection TimeReceived Time02/12/2025 5:26 PM EDT1 5:46 PM EDT Narrative CLINISYNC - 02/15/2025 1:06 AM EDT N N ULTRASOUND [id number] 0 18 N 2 172 N N N N N White/ Authorizing ProviderResult TypeResult StatusCorey Jackelyn DOLAB BLOOD ORDERABLES Final ResultPerforming OrganizationAddressCity/State/ZIP CodePhone Number [facility] * ALL VITAMIN B6 (02/12/2025 5:26 PM EDT)ComponentValueRef RangeTest Method Analysis TimePerformed AtPathologist SignatureVITAMIN B6, FBHAUE61.43.4 - 65.2 ug/LTBHComment: This test was developed and its performance characteristics determined by [facility]. It has not been cleared or approved by the Food and Drug Administration. Deficiency: <3.4 ? Marginal: ?3.4 - 5.1 Adequate: >5.1 Performed at: ??BN - [facility] [address] ??[id number] Examination Proctor: Dea Amaya MD, Phone: ??[phone] Specimen (Source)Anatomical Location / LateralityCollection Method / Volume Collection TimeReceived Time02/12/2025 5:26 PM EDT1 5:46 PM EDT Narrative CLINISYNC - 02/17/2025 4:09 PM EDT Authorizing ProviderResult TypeResult StatusCorey Jackelyn DOCLINISYNCFinal Result Performing OrganizationAddressCity/State/ZIP CodePhone Number CLINISYNC [facility]H from Last 3 Months Insurance Care Teams Team MemberRelationshipSpecialtyStart DateEnd Date Rebecca Rizvi MD [address] [place] [address] PCP - GeneralFamily Medicine01/03/25
--- OUTSIDE RECORDS SUMMARY | 2025-05-05 11:31 | XMS_ITS | Patient Health Record ---
Author Organization [facility] Address [address] [place] [address] Care Team Providers Care Marbleizing Machine Tender Name Role Phone Dr. Howard Arriaga Primary Care Provider [phone] Erin Guallpa [phone] Reason For Referral No Information Encounters Encounter Location Date Provider Diagnosis [facility] [address] [place] [address] 08/22/2024 Erin Wheeler Acute gingivitis, plaque induced K05.00 [facility] [address] [place] [address] 03/14/2025 Erin Wheeler Acute gingivitis, plaque induced K05.00 ; Other dental procedure status Z98.818 and Encounter for dental examination and cleaning with abnormal findings Z01.21 Assessments Encounter Date Diagnosis (ICD Code) Assessment Notes Treatment Notes Treatment Clinical Notes Section Notes 08/22/2024 Acute gingivitis, plaque induced (ICD-10 - K05.00) 03/14/2025ute gingivitis, plaque induced (ICD-10 - K05.00)03/14/2025Other dental procedure status (ICD-10 - Z98.818)03/14/2025Encounter for dental examination and cleaning with abnormal findings (ICD-10 - Z01.21) Plan Of Treatment Next Appt Details Provider Name:Erin Wheeler , 09/26/2025 11:15:00 AM, [address] [place] [place], [address], Insurance Providers Payer Name Payer Address Payer Phone Subscriber Number Group Number Insured Name Patient Relationship to Insured Coverage Start Date Coverage End Date [employer] [place] Medicaid [address] [address] [place] [address] [id number] BRENDA LOGAN Self - patient is the insured Dental Wrap [facility] [address] [place] [id number] LOGANlf - patient is the [id number] 2024
--- OUTSIDE RECORDS SUMMARY | 2025-05-05 11:31 | XMS_ITS | Encounter Summary ---
Author Organization [facility] Address [address] [place] [address] Care Team Providers Care Surveyor Helper Name Role Phone Rebecca Rizvi MD Primary Care Provider [phone] Encounter Details DateTypeDepartmentCare Team (Latest Contact Info)Hwtsofesazx73/17/2025amboo flowsheet NOMTiffany PERALTA [address] [facility] [place] [address] Rene Hayden DO [address] [facility] [address] [place], [place] [address] Social History Tobacco UseTypesPacks/DayYears UsedDateSmoking Tobacco: Never Assessed Estimated Date of UoaxltvlDiuyczkwIbx57/11/2026Based on UltrasoundSex and Gender InformationValueDate RecordedSex Assigned at BirthNot on fileLegal SexFemale 07/20/2022 6:43 PM EDTGender IdentityNot on fileSexual OrientationNot on file documented as of this encounter Plan of Treatment DateTypeDepartmentCare Team (Latest Contact Info)Wdykguqkcby21/31/2025 10:20 AM ESTRoutine [facility] [address] [place] [address] Jaylin Chung NP [address] [place] [address] 05/21/2025 3:50 PM ESTRoutine NOMTiffany PERALTA [address] [place] [address] Rene Hayden, [address] [place] [address] documented as of this encounter Visit Diagnoses Not on filedocumented in this encounter Care Teams Team MemberRelationshipSpecialtyStart DateEnd Date Rebecca Rizvi MD [address] [place] [phone] PCP - GeneralFamily Medicine01/03/25documented as of this encounter"
--- OUTSIDE RECORDS SUMMARY | 2025-05-05 11:31 | XMS_ITS | Encounter Summary ---
Author Organization [facility] Address [address] [place] [address] Care Team Providers Care Student Activities Director Name Role Phone Rebecca Rizvi MD Primary Care Provider [phone] Encounter Details DateTypeDepartmentCare Team (Latest Contact Info)Cndwjyoadzo56/20/2025linisync Result Encounter NOMS External Department Unsolicited Mamadou Hayden, DO [address] [facility] [address] [place], [facility] Social History Tobacco UseTypesPacks/DayYears UsedDateSmoking Tobacco: Never Assessed Estimated Date of GobyahbgDvvwdmpnRbj44/11/2026Based on UltrasoundSex and Gender InformationValueDate RecordedSex Assigned at BirthNot on fileLegal SexFemale 07/20/2022 6:43 PM EDTGender IdentityNot on fileSexual OrientationNot on file documented as of this encounter Plan of Treatment DateTypeDepartmentCare Team (Latest Contact Info)Drbzyeaescj28/31/2025 10:20 AM ESTRoutine [facility] PER[facility] [address] [place] [address] [place] [address] Jaylin Chung, NATHANIEL [address] [facility] [place] [address] 05/21/2025 3:50 PM ESTRoutine NOMTiffany PERALTA [address] [facility] [place] [address] Mamadou Hayden DO [address] [place] [address] documented as of this encounter Procedures Procedure NamePriorityDate/TimeAssociated DiagnosisCommentsUS OB CERVICAL LENGTH 04/26/2025 5:17 PM EST documented in this encounter Results * US OB CERVICAL LENGTH (04/26/2025 5:17 PM EST)Anatomical RegionLaterality ModalityOtherSpecimen (Source)Anatomical Location / LateralityCollection Method / VolumeCollection TimeReceived Time04/26/2025 5:17 PM EST Narrative 04/26/2025 5:20 PM EST [facility] ?[address] ? [place] [address] ? Ultrasound Report ? Signed ? Patient: DESMOND,ESE N ?MR#: [id number] ?? : 1990 ?Acct:[id number] ?? Age/Sex: 34 / F ?ADM Date: 04/26/25 ?? Loc: [facility] ??250-1 ? Attending Dr: Mamadou Hayden D.O. ? Ordering Physician: Mamadou Hayden D.O. ?? Date of Service: 04/26/25 ?? Procedure(s): US OB cervical length ?? Accession Number(s): [id number] ? cc: Mamadou Hayden D.O.; Rebecca Rizvi GETTER FILLER ? [facility] ? [address] [place] [address] ? [place] [address] ? Patient Name: ?? ESE BADILLO ? MRN: [facility]:[id number] ? date: 1990 ?Sex: F ?? Assigned Patient Location: [facility] ?? Current Patient Location: [facility] ?? Accession/Order Number: [id number] ?? Exam Date: 04/26/2025 ??16:20 ?Report Date: [...] Dictation Location: RADIO-PC-18 ? Electronically authenticated by: [id number] ??Y ?? Date: 04/26/2025 ??17:17 ? Dictated By: ?Howard Huang M.D. ? Signed By: ?04/26/250 ? DD/ 1717 ? TD/TT: ? Cna Gna: Procedure Note Radiology, Radiologist, MD - 04/26/2025 [place] [address] Ultrasound Report Signed Patient: ESE BADILLO NMR#: [id number] : 1990Acct:[id number] Age/Sex: 34 / FADM Date: 04/26/25 Loc: [facility] 250-[address]: Mamadou Hayden D.O. Ordering Physician: Mamadou aHyden D.O. Date of Service: 04/26/25 Procedure(s): US OB cervical length Accession Number(s): [id number] cc: Mamadou Hayden D.O.; Rebecca Rizvi The [place] [id number] Patient Name: ESE BADILLO MRN: [id number] date: 1990 Sex: F Assigned Patient Location: [facility] Current Patient Location: [facility] Accession/Order Number: [id number] Exam Date: 04/26/2025 16:20 Report Date: 04/26/2025 [...] Jr., D.O. 04/26/2025 5:17 PM Dictation Location: [place] [address] Electronically authenticated by: [id number] Y Date: 7:17 Dictated By: Howard Huang M.D. Signed By:04/26/250 DD/ 16 TD/TT: Cna Gna: Authorizing ProviderResult TypeResult StatusCorey Jackelyn DOCLINISYNC IMAGINGFinal Result documented in this encounter Visit Diagnoses Not on filedocumented in this encounter Care Teams Team MemberRelationshipSpecialtyStart DateEnd Date Rebecca Rizvi MD [address] [place] [phone] PCP - GeneralFamily Medicine01/03/25documented as of this encounter
--- OUTSIDE RECORDS SUMMARY | 2025-05-05 11:31 | XMS_ITS | Encounter Summary ---
Author Organization [facility] Address [address] [place] [address] Care Team Providers Care Clip Coater Name Role Phone Rebecca Rizvi MD Primary Care Provider [phone] Encounter Details DateTypeDepartmentCare Team (Latest Contact Info)Huzlzxoxnpv35/26/2025linisync Result Encounter N[facility]S External Department Unsolicited Mamadou Hayden, DO [address] [facility] [address] [place], [facility]11 Social History Tobacco UseTypesPacks/DayYears UsedDateSmoking Tobacco: Never Assessed Estimated Date of HsfkcrohIjnvtqxiWmn62/11/2026Based on UltrasoundSex and Gender InformationValueDate RecordedSex Assigned at BirthNot on fileLegal SexFemale 07/20/2022 6:43 PM EDTGender IdentityNot on fileSexual OrientationNot on file documented as of this encounter Plan of Treatment DateTypeDepartmentCare Team (Latest Contact Info)Dkihptbwhtm80/31/2025 10:20 AM ESTRoutine [facility] PERALTA [address] [place] [address] [place] [address] Jaylin Chung, NATHANIEL [address] [facility] [place] [address] 05/21/2025 3:50 PM ESTRoutine NOMTiffany PERALTA [address] [facility] [address] Mamadou Hayden DO [address] [place] [address] documented as of this encounter Procedures Procedure NamePriorityDate/TimeAssociated DiagnosisCommentsUS OB BPP W NON-FFULOB9905/02/2025 11:25 AM EST documented in this encounter Results * US OB BPP W NON-STRESS (05/02/2025 11:25 AM EST)Anatomical Region LateralityModalityOtherSpecimen (Source)Anatomical Location / Laterality Collection Method / VolumeCollection TimeReceived Time05/02/2025 11:25 AM EST Narrative 05/02/2025 11:28 AM EST [facility] ?[address] ? [place] [address] ? Ultrasound Report ? Signed ? Patient: DESMOND,ESE N ?MR#: [id number] ?? : 1990 ?Acct:[id number] ?? Age/Sex: 34 / F ?ADM Date: 05/02/25 ?? Loc: [facility] ??250-1 ? Attending Dr: Mamadou Hayden D.O. ? Ordering Physician: Mamadou Hayden D.O. ?? Date of Service: 05/02/25 ?? Procedure(s): US OB BPP w non-stress ?? Accession Number(s): [id number] ? cc: Mamadou Hayden D.O.; Rebecca Rizvi PLANS EXAMINER ? [facility] ? [address] ? [place] [address] ? Patient Name: ?? ESE Brigette DESMOND ? MRN: [facility]:[id number] ? date: 1990 ?Sex: F ?? Assigned Patient Location: [facility] ?? Current Patient Location: [facility] ?? Accession/Order Number: [id number] ?? Exam Date: 05/02/2025 ??10:35 ?Report Date: [...] Dictation Location: RADIO-PC-30 ? Electronically authenticated by: [id number] ??Y ?? Date: 05/02/2025 ??11:25 ? Dictated By: ?Malena Salcido M.D. ? Signed By: ?12/26/25 1128 ? DD/ 1125 ? TD/TT: ? Stockroom Supervisor: Procedure Note Radiology, Radiologist, MD - 05/02/2025 [place] [address] Ultrasound Report Signed Patient: ESE BADILLO NMR#: [id number] : 1990Acct:[id number] Age/Sex: 34 / FADM Date: 05/02/25 Loc: [facility] 250-[address]: Mamadou Hayden D.O. Ordering Physician: Mamadou Hayden D.O. Date of Service: 05/02/25 Procedure(s): OB BPP w non-stress Accession Number(s): [id number] cc: Mamadou Hayden D.O.; Rebecca Rizvi PLANS EXAMINER The [place] [id number] Patient Name: ESE BADILLO MRN: [id number] date: 1990 Sex: F Assigned Patient Location: [facility] Current Patient Location: [facility] Accession/Order Number: [id number] Exam Date: 05/02/2025 10:35 Report Date: 05/02/2025 [...] Salcido M.D. 05/02/2025 11:25 AM Dictation Location: [employer] Electronically authenticated by: [id number] Y Date: :25 Dictated By: Malena Salcido M.D. Signed By:05/02/25 1128 DD/ 24 TD/TT: Stockroom Supervisor: Authorizing ProviderResult TypeResult StatusCorey Jackelyn DOCLINISYNC IMAGINGFinal Result documented in this encounter Visit Diagnoses Not on filedocumented in this encounter Care Teams Team MemberRelationshipSpecialtyStart DateEnd Date Rebecca Rizvi MD [address] [place] [phone] PCP - GeneralFamily Medicine01/03/25documented as of this encounter
--- OUTSIDE RECORDS SUMMARY | 2025-05-05 11:31 | XMS_ITS | Encounter Summary ---
Author Organization [facility] [address] [place] [address] Care Team Providers Care Architectural Renderer Name Role Phone Rebecca Rizvi BLANCA-TELEVISION TECHNICIAN Primary Care Provider Encounter Details DateTypeDepartmentCare Team (Latest Contact Info)Gsddzhgbvjx18/23/2025[facility] [address] [place] [phone] Opal Herndon, RN Social History Tobacco UseTypesPacks/DayYears [...] care, and heating?Not hard at all05/07/2024HQ-2AnswerDate RecordedTotal Zipws256PRAPARE - TransportationAnswerDate RecordedIn the past 12 months, has lack of transportation kept you from medical appointments or from getting medications?No 03/28/2024In the past 12 months, has lack of transportation kept you from meetings, work, or from getting things needed for daily living?No03/28/2024 [place] Depression ScaleAnswerDate RecordedEdinburgh Depression Scale Gefef986The thought of harming myself has occurred to [...] a household?No4Childcare AnswerDate RecordedDo problems getting child nutrition assistant make [...] True03/11/2025Purpose - LifeAnswerDate RecordedPurpose and direction in suwcSxximfs14/10/2021Estimated Date of GnlsjicpYkaoharhIob81/11/2026Based on UltrasoundSex and Gender InformationValue Date RecordedSex Assigned at WtkvmDdrwci42/02/2022 7:15 PM EDTLegal SexFemale 12/09/2014 2:44 PM EDTGender LauwoadaUybdgd33/02/2022 7:15 PM EDTSexual QwenatuozvlTsiczbzh31/02/2022 7:15 PM EDTdocumented as of this encounter Miscellaneous Notes * Telephone Encounter - Opal Herndon RN - 04/29/2025 3:15 PM EST Prior authorization done on covermymeds. Waiting for approval. Patient notified it could take 24-48hours to be completed. documented in this encounter Plan of Treatment DateTypeDepartmentCare Team (Latest Contact Info)Njpdcagpeok14/08/2026 8:30 AM ESTAppointment [facility] [address] [place] [address] 05/15/2025 11:00 AM ESTOffice Visit Maternal- [facility] at [facility] [address] [place] [address] Charlene Lees MD [address], [address] [place] [address] 11/04/2025 4:00 PM EDTOffice Visit [facility] [address] [place] [phone] Rebecca Rizvi APRN-CNP [address] [place] [phone] documented as of this encounter Visit Diagnoses Not on filedocumented in this encounter Additional Health Concerns AssessmentNoted TimePHQ-9 Depression Total Score: 3:04 PM EDTA Body Mass Index follow-up plan has been documented for the kdpjodl5609/11/2018 4:32 PM EDTdocumented as of this encounter Care Teams Team MemberRelationshipSpecialtyStart DateEnd Date Rebecca Rizvi APRN-CNP [address] [place] [phone] PCP - GeneralNurse Practitioner08/23/22documented as of this encounter
--- OUTSIDE RECORDS SUMMARY | 2025-05-05 11:31 | XMS_ITS | Encounter Summary ---
Author Organization [facility] Address [address] [place] [address] Care Team Providers Care Pumper Gager Apprentice Name Role Phone Rebecca Rizvi MD Primary Care Provider [phone] Encounter Details DateTypeDepartmentCare Team (Latest Contact Info)Ciidgdrgoxb17/23/2025Telephone [facility] [address] [facility] [place] [phone] Sosa Funes MA [address] [facility] [place] [address] Social History Tobacco UseTypesPacks/DayYears UsedDateSmoking Tobacco: Never Assessed Estimated Date of CsrmlounFbcgaxjqUrp91/11/2026Based on UltrasoundSex and Gender InformationValueDate RecordedSex Assigned [...] his patients and I will let our central office equipment installer know.Pt said ahh yeah. And hung up. I went and advised Evelyn Kee LPN central office equipment installer know of how thispatient spoke and her demands. (Patient every times she calls when I am in the triage is a very rude and disrespectful patient.) documented in this encounter Plan of Treatment DateTypeDepartmentCare Team (Latest Contact Info)Drnaaigztmb11/31/2025 10:20 AM ESTRoutine NOMTiffany PERALTA [address] [facility] [place] [phone] Jaylin Chung NP [address] [facility] [place] [phone] 05/21/2025 3:50 PM ESTRoutine NOMTiffany PERALTA [address] [facility] [place] [phone] Rene Hayden DO [address] [facility] [address] [place], [place] [phone] documented as of this encounter Visit Diagnoses Not on filedocumented in this encounter Care Teams Team MemberRelationshipSpecialtyStart DateEnd Date Rebecca Rizvi MD [address] [place] [phone] PCP - GeneralFamily Medicine01/03/25documented as of this encounter
--- OUTSIDE RECORDS SUMMARY | 2025-05-05 11:31 | XMS_ITS | Clinical Summary ---
Author Organization Litigain tem Address [id number] [place] [address] Care Team Providers Care Rubber Molder Name Role Phone Rebecca Rizvi BLANCA-C SOFTWARE ENGINEER Primary Care Provider Allergies No known active allergies Medications * This document contains information received from the source organization and may not represent a complete record from that organization. MedicationSigDispense QuantityRefillsLast FilledStart DateEnd DateStatus omeprazole (PriLOSEC) 40 mg capsule Indications:Heart burnTake 1 capsule (40 mg total) by mouth in the morning. 30 capsule 6084Active Additional Information Patient not taking.Reported on 04/14/2025 100-mhxd-xbopdn 6-dha 27 mg iron-1 mg -205 mg [...] tablet oral Daily, Bedtime,Occasionally, Reported on 04/14/2025 FMOH-fhnwqcye-vkvxhqpxaiz xt 100-100-225 mg capsule Take 1 capsule [...] Possible clubbed feet Twin B - WNL PPROM of Twin A 04/27/25 Left hospital AMA due to child protective investigator issues Referring OB: Jackelyn MFM: Fabio Maternal Hx: MOB and FOB carriers for Galactosemia AMA MSAFP: cfDNA: Dizigotic XY XY Low risk Carrier: Amnio: []Genetic Counselling: []Peds Cardiology: []Peds Urology: []Peds Ortho: []Peds Surgery: []Peds Neurology: [x]Peds Neurosurgery: [facility] 03/18/25 Pediatric neurosurgical consultation has been sought [...] Consult: []Palliative Care Consult: []SGM: []Life Connection: [x][place]: 03/17 and 03/18 [x] MRI & US [...] demonstrate a signal between 16-18 weeks []UH: [x]JESSICA CHS: JUAN ALBERTO Delivery Recommendation: 34 weeks at PTH [] Term at local hospital [] Term at [facility] Surveillance Plan: [] Survey at __ weeks [] Growth q __ weeks [] Dopplers q __ weeks [] Echo at __ weeks [] Cervical length q __ weeks [] TTTS q __ weeks [] Wkly NST/PAMELA starting at __ weeks [x] 2x/wk NST/PAMELA starting Now 04/27/25 ProblemNoted DateDiagnosed DatePremature rupture of nibwnosdu77/21/2025MA (advanced maternal age) multigravida 35+, second xpjesdvaj53/04/2025nemia affecting in third lhyhfnudb98/30/2024 Overview (01/23/2024): 01/15: IV iron 01/22: IV iron Vitamin D zbadkfmtad04/03/2023Estimated Date of DeliveryCommentsYes 07/16/2025ased on Ultrasound Resolved Problems ProblemNoted DateDiagnosed DateResolved DateNSVD (normal spontaneous vaginal delivery)/9313Jzcitqvio16Normal labor03/26/2024 weeks gestation of hffxxnujk93bdominal pressure Irregular uterine mthzjqojlhld34History of heroin abuse Overview (03/17/2024): 03/17/2024: Patient states she has been clean since 2011. Uesfsxcn62 Overview (11/14/2023): Bleeding after intercourse - 10-31-23 spec exam done. Bleeding is coming from metaplasia of cervix. Thick/closed 070710 = GC and CT negative Hx of [...] MFM consult: Rh negative state in antepartum /HSV infection Overview (10/31/2023): 09-05-23 genital lesion cultured- + HSV2 States gets oral lesions Discussed genital HSV and need for prophylaxis at 34 weeks. 10-31-23 - c/o HSV oral break out. 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 They have a xtvc-bylw-asm daughter that has a mild form (Clemens [...] 25%. We reviewed all children born in [place] are screened for galactosemia via screening (NBS) after . 1. Amniocentesis discussed and declined. 2. Continue to monitor the via ultrasound. 3. Patient diagnoses: galactosemia carriers, family history of galactosemia and muscular dystrophy History of loop electrical excision procedure (LEEP) Overview (09/05/2023): LEE 2016 Cervical lengths to start at 16 weeks until 24 weeks. Intermittent explosive ohykhcct50ipolar rzoaswyc51/23/2023 10/01/20241044Okcrmtsf27/02/202305/History of drug abuse09/06/2022EczemaVitamin B 12 jyvpetssig29/02/2023 02/21/2023FH: brain nynfrhfo63pontaneous vaginal delivery Failed induction of labor, lkibyjdxhw72 Intrauterine axfuhmuld80Echogenic focus of heart of fetus affecting antepartum care of ejpytz69 Overview (10/09/2017): First Trimester and MSAFP is WNL US was repeated and the EIF Is smaller - her first trimester screen was negative PLAN: rpt US in 4 weeks Notify Peds at History of hepatitis / Overview (09/08/2023): treated 04/2020 with Mavyret (Dr. Daniel) 09/07/22 viral load undetectable 09/05/23 viral load undetected Rh negative, antepartum, first rnhmeowrp68Attention deficit hyperactivity disorder (ADHD), predominantly hyperactive type03/20/2017 10/01/20244340Zvjwvrg82Headaches, lmpniww64HCV antibody xwyrwkat51 Overview (07/17/2017): Avoid scalp electrode Notify peds at delivery LFT and viral load each trimester and at delivery Elevated liver ybwctyq50Cannabis abuse Tobacco useHistory of opioid abuse Overview (08/14/2017): Has not used opoid since Hx of intravenous drug use in xcoyoecih68CIN II (cervical intraepithelial neoplasia II) Overview (08/14/2017): =ASC-H =HGSIL = LEEP - Dr. Bhatia - PAP=WNL Rpt PAP post Encounters DateTypeDepartmentCare BuavKxtueqnatek29/24/2025Documentation Maternal- Medicine at [facility] [address] [place] [phone] Eliza Chinchilla, PROPERTY INVESTOR-DANIM 04/29/2025[facility] [address] [place] [address] Opal Herndon RN 04/27/20250200Ubexae49/20/2025 11:50 PM EST - 04/27/2025 11:24 PM ESTHospital Encounter [facility] - Labor [address] [place] [address] Escobar Cook MD premature rupture of membranes (PPROM) with unknown onset of labor (Primary Dx); premature rupture of membranes in third trimester, unspecified duration to onset of labor Discharge Disposition: Left Against Medical Advice or Discontinued Care 04/14/2025 9:00 AM ESTOffice Visit Maternal Medicine [place] [address] [place] [address] Abiola Chris MD 26 weeks gestation of (Primary Dx); Twin following selective reduction, antepartum; Dichorionic diamniotic twin in second trimester; Carrier of iwqohnovpbpj05/08/8511Grknum53/24/2025Orders Only Maternal- Medicine at [place] [address] [place] [address] Debo Shea, KLEVER AMA (advanced maternal age) multigravida 35+, second trimester (Primary Dx); Dichorionic diamniotic twin in second qdohtjxxz86/24/2025Orders Only Maternal- Medicine at [place] [address] [place] [address] Malena Ocasio RDMS 03/19/2025Orders Only Maternal- Medicine at [facility] [place] [address] [place] [address] Ref Prov, Not In System 03/18/2025Telephone Maternal- Medicine at [facility] [place] [address] [place] [address] Helen Robertson RN 03/11/2025 11:00 AM ESTOffice Visit Maternal- Medicine at [facility] [address] [place] [address] Tejinder Mccarthy MD Anemia affecting in third trimester (Primary Dx); AMA (advanced maternal age) multigravida 35+, second ijgajymeg43/04/2025 8:54 AM EST - 03/11/2025 11:59 PM ESTHospital Encounter [facility] - [facility] US Imaging [address] [facility] [address] Screening, , for anatomic survey Discharge Disposition: Home03/11/20252170Gshscv82/16/2025Orders Only Maternal- Medicine at [facility] [address] [place] [address] Ref Prov, Not In System 02/19/2025 1:45 PM EDTSupport Visit Maternal- Medicine at [facility] [address] [place] [address] 02/19/20255438Trachn74/06/2025bstract Maternal- Medicine at [facility] [address] [place] [address] Tejinder Mccarthy MD from Last 3 Months Immunizations ImmunizationAdministration DatesNext XnwYAI7306/12/1989,02/08/1990,1989DTaP, Nlnlbuqffnq34/08/2002,10/04/1994,04/16/1991HPV Ptdbxgcdypri43/14/2007Hep A, 2 Dose03/21/2007Hep B, Adolescent or Iyrvvgqju61/26/2002,05/15/2001,04/04/2001HiB 02/12/1991,09/20/1990,08/05/1990Influenza, Injectable, quadrivalent (PF) 02/27/2024,05/22/2017MMR05/15/2001,02/12/1991Meningococcal QGP9Q4003/21/2007OPV 10/04/1994,04/16/1991,02/08/1990,1989Polio, Mkcvqcbbuwp25/08/2002RSV, bivalent, protein subunit RSVpreF, diluent reconstituted, 0.5 mL, PF02/23/2024 Rho (D) Immune Frhgufpd69/21/2024,01/02/2024,11/14/2023,08/23/2023,09/11/2017Td, Gmazofugoji27/26/8885Biam48/10/2023 Family History Medical HistoryRelationNameCommentsDrug abuseBrotherDrug abuseFatherHeart diseaseFatherMigrainesFatherParkinsonismMaternal [...] RecordedIn the past 12 months has the [place], gas, oil, or water [place] threatened to shut off services in your home?No03/28/2024Overall Financial Resource Strain (CARDIA)AnswerDate RecordedHow hard is it for you to pay for the very basics like food, housing, medical care, and heating?Not hard at all05/07/2024HQ-2AnswerDate RecordedTotal Mgebw416PRAPARE - TransportationAnswerDate RecordedIn the past 12 months, has lack of transportation kept you from medical appointments or from getting medications?No03/28/2024In the past 12 months, has lack of transportation kept you from meetings, work, or from getting things needed for daily living?No03/28/2024Edinburgh Depression ScaleAnswerDate Recorded [place] Depression Scale Yvclg755The thought of harming myself has occurred to [...] of a household?No4ChildcareAnswerDate RecordedDo problems getting child protective investigator make it difficult for you to work or study?No05/07/2024EmploymentAnswerDate NlobxdxuPgmnsbhtwsLdbhaky20/10/2019Hunger ScreeningAnswerDate RecordedWithin the past 12 months we worried whether our food would run out before we got money to buy more.Never True03/11/2025Within the past 12 months the food we bought just didn't last and we didn't have money to get more.Never True03/11/2025Purpose - LifeAnswerDate RecordedPurpose and direction in anilZpzmuys18/10/2021 Estimated Date of PbughxdsIsqpwhixNja09/11/2026Based on UltrasoundSex and Gender InformationValueDate RecordedSex Assigned at AfqcwVtvqse92/02/2022 7:15 PM EDT Legal QqbLgderx76/04/2015 2:44 PM EDTGender CnnyrtyfXznndm56/02/2022 7:15 PM EDT Sexual TqkqwpyhwveXhlfbvuo70/02/2022 7:15 PM EDT Last Filed Vital Signs Vital SignReadingTime TakenCommentsBlood Qzbjdpcr828/6004/27/2025 7:23 PM EST Yjpow983004/27/2025 7:23 PM MSICxbwnknunyl57.7 ??C (98.1 ??F)04/27/2025 9:34 PM ESTRespiratory Krvc403006/28/2024 7:23 PM ESTOxygen Puvwrufrur93%04/27/2025 9:00 AM ESTInhaled Oxygen Concentration--Ybxsnx63.9 kg (185 lb)04/14/2025 9:04 AM EST Zedmnm100 cm (5' 2.99 )03/11/2025 9:42 AM ESTBody Mass Index32.7803/11/2025 9:42 AM EST Plan of Treatment DateTypeDepartmentCare Team (Latest Contact Info)Quxanuuvhcx30/08/2026 8:30 AM ESTAppointment [facility] - [facility] US Imaging [address] [place] [address] 05/15/2025 11:00 AM ESTOffice Visit Maternal- Medicine at [facility] [address] [facility] [place] [address] Abiola Chris MD [address] [facility], [address] [place] [address] 11/04/2025 4:00 PM EDTOffice Visit [facility] [address] [facility] [place] [phone] Rebecca Rizvi, [facility] [address] [place] [address], [facility] [place] [phone] Health MaintenanceDue DateLast DoneCommentsAdult BMI Follow Up Plan10/04/2007 Influenza Uqihbph27, 05/22/2017Depression Vykuxgcik79/24/2026 10/29/2024, 05/07/2024dult BMI Sjqasmeds82Tobacco Screening Pap Smear8010/01/2024, 10/01/2024, 09/05/2023, Additional history existsDTaP,Tdap and Td Vaccines (9 - Td or Tdap)01/11/2034 01/12/2024, 12/31/2001, 05/15/2001, Additional history existsRSV ( or age 60+ yrs)Fawaqbfbb91/18/2024 Medical Devices Not on file Procedures Procedure NamePriorityDate/TimeAssociated DiagnosisCommentsURINALYSISRoutine 04/27/2025 7:56 AM EST LACTATE W/ POFJQSRFJM38/21/2025 6:25 AM EST COMPREHENSIVE METABOLIC PSXKGAZOK31/21/2025 6:25 AM EST CBC WITH AUTO TFUSJOIVBIIRORHC57/21/2025 6:25 AM EST BLOOD JBNQWSWFWTV95/21/2025 6:25 AM EST BLOOD ITMOLRXAXWB27/21/2025 6:25 AM EST EXTRA TUBES BLUE DOTKmdnuvi46/21/2025 6:24 AM EST EXTRA DFJHPFvygyes60/21/2025 6:24 AM EST STREP B ZFMJULOvptqie76/21/2025 2:20 AM EST CHLAMYDIA/GC BY PCR NORBERTO QNUNVjsboar16/21/2025 2:20 AM EST MOLECULAR VAGINITIS PANEL HEWTpdmlhc22/21/2025 2:20 AM EST RESP PATHOGENS PANEL/QSHE-QZR-9Legowzy53/21/2025 2:20 AM EST RUPTURE OF MEMBRANE (ALL)Vdknbwq0804/27/2025 1:43 AM EST ANTIBODY QCMtajrup82/21/2025 12:13 AM EST TYPE AND HIMAJKXKDE56/21/2025 12:13 AM EST HEPATITIS C VIRUS QUANTITATIVE BY NAATAdd-On04/27/2025 12:13 AM EST CBC WITH AUTO RIHDGMBRXKFRWNZE67/21/2025 12:13 AM EST COMPREHENSIVE METABOLIC VCKABASEY87/21/2025 12:13 AM EST SYPHILIS TOTAL(UNKNOWN SYPHILIS STATUS)STAT106/28/2024 12:13 AM EST EXTRA TUBES PST QFYLkhiiek95/21/2025 12:08 AM EST EXTRA TUBES BLUE BNVPlwjwpi03/21/2025 12:08 AM EST EXTRA JTVNMEfffpxg62/21/2025 12:08 AM EST US [facility] OB FOLLOW-UP, 1 TOAYLZgzntdv31/08/2025 9:15 AM EST AMA (advanced maternal age) multigravida 35+, second trimester Dichorionic diamniotic twin in second trimester ULTRASOUND HJSNXJYqjftjv12/11/2025 11:14 AM ESTMR VADUGRyzzvwr23/10/2025 11:19 AM ESTULTRASOUND ADMCECBdufypb23/10/2025 11:07 AM ESTUS MFM COMPREHENSIVE ANATOMIC HXFWRPGweqfty96/04/2025 11:56 AM EST Screening, , for anatomic survey FREE CELL DNA (NON-[facility] SEND OUT)Sjvjvwf1502/18/2025 11:39 AM EDTHIGH RISK HPV W/HDCVBbsfpcw31/27/2025 1:50 PM EDT Screening for cervical cancer from Last 3 Months or Most Recently Relevant to Health Maintenance Results * (ABNORMAL) Urinalysis (04/27/2025 7:56 AM EST)ComponentValueRef RangeTest MethodAnalysis TimePerformed AtPathologist SignatureCOLORYellowYellow 04/27/2025 8:41 AM [facility] LABORATORYTURBIDITYClearClear 04/27/2025 8:41 AM [facility] LABORATORYSPECIFIC GRAVITY1.023 1.003 - 1.1312204/27/2025 8:41 AM [facility] LABORATORYNITRITE FribuhjqLdjmshhy66/21/2025 8:41 AM [facility] PH,URINE6.55.0 - 8.512 8:41 AM [facility] LEUKOCYTE VUJCUYSIYmxvimanLgibaxdk24/21/2025 8:41 AM [facility] LABORATORYPROTEINTrace(A)Pgzjonjj29/21/2025 8:41 AM [facility] LABORATORYKETONES (URINE)10 mg/dL(A)Txtwfjzv12/21/2025 8:41 AM EST [facility] LABORATORYUROBILINOGEN<1.1 eu/dL<1.1 eu/dL04/27/2025 8:41 AM [facility] LABORATORYBILIRUBIN (URINE)Negative Tdklaiss03/21/2025 8:41 AM [facility] LABORATORYBLOOD/HGB LzlucdqfEfrlvzxj28/21/2025 8:41 AM [facility] MUCOUSPresent(A)None04/27/2025 8:41 AM [facility] R.B.CELLS10 - 512 8:41 AM [facility] SQUAMOUS JQYUFBLZIA17 - 8:41 AM [facility] LABORATORYW.B.CELLS10 - 512 8:41 AM [facility] LABORATORYGLUCOSE (URINE)DdyhrxcjBrvmirvq34/21/2025 8:41 AM [facility] LABORATORYSpecimen (Source)Anatomical Location / Laterality Collection Method / VolumeCollection TimeReceived TimeUrineUrine / Unknown 04/27/2025 7:56 AM EST04/27/2025 8:24 AM EST Narrative Authorizing ProviderResult TypeResult StatusTannice Dionne PHILLIPSURINE ORDERABLES Final ResultPerforming OrganizationAddressCity/State/ZIP CodePhone Number [facility] [address] [place] [address], * Lactate w/ Reflex (04/27/2025 6:25 AM EST)ComponentValueRef RangeTest Method Analysis TimePerformed AtPathologist SignatureLACTATE W/REFLEX1.00.4 - 2.0 mmol/L106/28/2024 7:23 AM [facility] LABORATORYSpecimen (Source)Anatomical Location / LateralityCollection Method / VolumeCollection TimeReceived TimeBloodVenous blood / UnknownVenipuncture / Xyeycod6904/27/2025 6:25 AM EST04/27/2025 6:41 AM EST Narrative [facility] - 04/27/2025 7:23 AM EST Result did not trigger repeat Lactate, re-order if needed. Authorizing ProviderResult TypeResult StatusTansarwat HUNTER BLOOD ORDERABLESFinal ResultPerforming OrganizationAddressCity/State/ZIP CodePhone Number [facility] [address] [place] [address], [place] [phone] * (ABNORMAL) CBC auto differential (04/27/2025 6:25 AM EST) Only the most recent of2 resultswithin the time period is included. ComponentValueRef RangeTest MethodAnalysis TimePerformed AtPathologist Signature WBC12.1(H)4 - 11 10^9/L106/28/2024 6:52 AM [facility] RBC Count3.823.8 - 5.2 10^12/L106/28/2024 6:52 AM [facility] CYGPXPPKLTSwretnmxmh13.3(L)11.7 - 15.5 g/dL04/27/2025 6:52 AM [facility] MAGNNIYZORKifvkrplnm89.3(L)35 - 47 %04/27/2025 6:52 AM [facility] PRKFXFBKSXQLG3488 - 100 fL04/27/2025 6:52 AM [facility] CNNQNVIBDGFZU21.627 - 34 pg04/27/2025 6:52 AM [facility] WUYYXDNQYOXEOF24.932 - 36 g/dL04/27/2025 6:52 AM [facility] YJUSCMKTUXSKM27.611.5 - 15 %04/27/2025 6:52 AM [facility] LABORATORYPlatelet Ezyeg938473 - 450 10^9/L106/28/2024 6:52 AM [facility] LABORATORYMPV8.37 - 12 fL04/27/2025 6:52 AM EST [facility] LABORATORYNeutrophils %89.5%04/27/2025 6:52 AM EST [facility] LABORATORYLymphocytes %8.6%04/27/2025 6:52 AM [facility] LABORATORYMonocytes %1.8%04/27/2025 6:52 AM [facility] LABORATORYEosinophils %0.1%04/27/2025 6:52 AM [facility] LABORATORYBasophils %0.0%04/27/2025 6:52 AM [facility] LABORATORYNeutrophils Absolute (A)10.8(H)1.5 - 6.6 10^9/L106/28/2024 6:52 AM [facility] LABORATORYLymphocytes Absolute1.01.0 - 3.5 10^9/L106/28/2024 6:52 AM [facility] LABORATORYMonocytes Absolute0.20.0 - 0.9 10^904/27/2025 6:52 AM [facility] LABORATORYEosinophils Absolute0.00.0 - 0.4 10^9/L106/28/2024 6:52 AM [facility] LABORATORYBasophils Absolute0.00.0 - 0.2 10^904/27/2025 6:52 AM [facility] LABORATORYDifferential TypeAUTOMATED MTWGRUNWPTXZ65/21/2025 6:52 AM [facility] LABORATORYSpecimen (Source)Anatomical Location / LateralityCollection Method / VolumeCollection TimeReceived TimeBloodVenous blood / UnknownVenipuncture / Gurwumk4704/27/2025 6:25 AM EST04/27/2025 6:42 AM EST Narrative Authorizing ProviderResult TypeResult StatusTannice Dionne HUNTER BLOOD ORDERABLESFinal ResultPerforming OrganizationAddressCity/State/ZIP CodePhone Number [facility] [address] [place] [address], * Blood culture #2 (04/27/2025 6:25 AM EST) Only the most recent of2 resultswithin the time period is included. ComponentValueRef RangeTest MethodAnalysis TimePerformed AtPathologist Signature CULTURE RESULTSNO GROWTH 5 DAYS05/02/2025 10:01 AM [facility] LABORATORYSpecimen (Source)Anatomical Location / LateralityCollection Method / VolumeCollection TimeReceived TimeBloodVenous blood / UnknownVenipuncture / Zbqtemk5904/27/2025 6:25 AM EST04/27/2025 9:31 AM EST Narrative [facility] - 05/02/2025 10:01 AM EST Suboptimal volume of blood collected, Results may be affected. Authorizing ProviderResult TypeResult StatusTannice [facility] MDMICROBIOLOGY - GENERAL ORDERABLESFinal ResultPerforming OrganizationAddressCity/State/ZIP Code Phone Number [facility] [address] [place] [address], * (ABNORMAL) Comprehensive metabolic panel (04/27/2025 6:25 AM EST) Only the most recent of2 resultswithin the time period is included. ComponentValueRef RangeTest MethodAnalysis TimePerformed AtPathologist Signature LJIWLN148258 - 146 mmol/L106/28/2024 7:18 AM [facility] LABORATORYPOTASSIUM3.93.5 - 5.0 mmol/L106/28/2024 7:18 AM [facility] LOVUUMUIIFGMMQXEWM37272 - 109 mmol/L106/28/2024 7:18 AM [facility] LABORATORYCARBON SLEFBPG41(L)22 - 32 mmol/L106/28/2024 7:18 AM [facility] LABORATORYANION GAP85 - 15 mmol/L106/28/2024 7:18 AM [facility] LABORATORYBLOOD UREA YAYXFIYE66 - 23 mg/dL04/27/2025 7:18 AM [facility] LABORATORYCREATININE0.510.40 - 1.00 mg/dL 04/27/2025 7:18 AM [facility] LABORATORYComment:METHOD TRACEABLE TO IDMS JDNZBBJNGPLWOQM160(H)65 - 99 mg/dL04/27/2025 7:18 AM [facility] LABORATORYCALCIUM7.1(L)8.5 - 10.5 mg/dL04/27/2025 7:18 AM [facility] LABORATORYTOTAL PROTEIN6.06.0 - 8.0 g/dL04/27/2025 7:18 AM [facility] LABORATORYALBUMIN3.23.2 - 5.3 g/dL04/27/2025 7:18 AM [facility] LABORATORYALKALINE PYSLRNGSGAN0753 - 130 U/L 04/27/2025 7:18 AM [facility] ZJYXEMIFLCOPO96<=41 U/L106/28/2024 7:18 AM [facility] LABORATORYALT4<=31 U/L106/28/2024 7:18 AM [facility] LABORATORYBILIRUBIN,TOTAL0.2(L)0.3 - 1.2 mg/dL 04/27/2025 7:18 AM [facility] LABORATORYEGFR Non-Race Dependent >90>=60 ml/min/1.73sq.m106/28/2024 7:18 AM [facility] Comment: Reported eGFR is based on the CKD-EPI 2020 equation that does not use a race coefficient. Specimen (Source)Anatomical Location / LateralityCollection Method / Volume Collection TimeReceived TimeBloodVenous blood / UnknownVenipuncture / Unknown 04/27/2025 6:25 AM EST04/27/2025 6:42 AM EST Narrative Authorizing ProviderResult TypeResult StatusTansarwat HUNTER BLOOD ORDERABLESFinal ResultPerforming OrganizationAddressCity/State/ZIP CodePhone Number [facility] [address] [place] [address], * Light Blue Top (04/27/2025 6:24 AM EST) Only the most recent of2 resultswithin the time period is included. ComponentValueRef RangeTest MethodAnalysis TimePerformed AtPathologist Signature Extra TubeAuto Asvwcbuv31/21/2025 8:01 AM [facility] Specimen (Source)Anatomical Location / LateralityCollection Method / Volume Collection TimeReceived TimeBloodVenous blood / Lafiilb2904/27/2025 6:24 AM EST 04/27/2025 6:42 AM EST Narrative Authorizing ProviderResult TypeResult StatusDaviyamilka Cook MDLAB BLOOD ORDERABLESFinal ResultPerforming OrganizationAddressCity/State/ZIP CodePhone Number [facility] [address] [place] [address], * Molecular Vaginitis Panel PCR (04/27/2025 2:20 AM EST)ComponentValueRef Range Test MethodAnalysis TimePerformed AtPathologist SignatureBacterial Vaginosis DNANot DetectedNot Qilgfkew53/21/2025 4:27 AM [facility] LABORATORYComment:Indicator DNA target(s) related to bacterial vaginosis organisms, which include: Atopobium vaginae,Atopobium novel species, Megasphaera-1, and Bacterial Vaginosis Associated Bacteria-2 (BVAB-2), is/are Not Detected.Abena species group DNANot DetectedNot Vutkomrn09/21/2025 4:27 AM [facility] LABORATORYComment:Abena group (C. albicans and/or C. tropicalis and/or C. parapsilosis and/or C. dubliniensis) target DNA is Not Detected.Abena glabrata/krusei DNANot DetectedNot Wyegankl86/21/2025 4:27 AM [facility] LABORATORYComment:Abena glabrata and/or Abena krusei target DNA is Not Detected.Trichomonas VaginalisNot Detected Not Wsuxfohe52/21/2025 4:27 AM [facility] LABORATORYComment: Trichomonas vaginalis target DNA is Not Detected.Specimen (Source)Anatomical Location / LateralityCollection Method / VolumeCollection TimeReceived Time SwabVaginal structure / Jrjxxov2604/27/2025 2:20 AM EST04/27/2025 3:19 AM EST Narrative [facility] LABORATORY - 04/27/2025 4:27 AM EST Assay methodology is nucleic acid amplification by real-time PCR, performed on [employer] GeneXpert Instrument System. Authorizing ProviderResult TypeResult StatusTannice Fogarthy MDMICROBIOLOGY - GENERAL ORDERABLESFinal ResultPerforming OrganizationAddressCity/State/ZIP Code Phone Number [facility] [address] [place] [address], * Chlamydia/GC by PCR Norberto Swab (04/27/2025 2:20 AM EST)ComponentValueRef Range Test MethodAnalysis TimePerformed AtPathologist SignatureCHLAMYDIA DNA(PCR) HssscflaGnvyxyix31/22/2025 10:39 AM [facility] Comment:Chlamydia trachomatis not detected by nucleic acid amplification. This does not exclude the possibility of infection because results are dependent on adequate specimen collection.GONORRHOEAE DNA(PCR)ZbwvgzziUntercpr08/22/2025 10:39 AM [facility] LABORATORYComment:Neisseria gonorrhoeae not detected by nucleic acid amplification. This does not exclude the possibil ity of infection because results are dependent on adequate specimen collection.Specimen (Source)Anatomical Location / LateralityCollection Method / VolumeCollection TimeReceived TimeSwabEndocervical structure / Unknown 04/27/2025 2:20 AM EST04/27/2025 3:19 AM EST Narrative Authorizing ProviderResult TypeResult StatusTannice Fogarthy MDMICROBIOLOGY - GENERAL ORDERABLESFinal ResultPerforming OrganizationAddressCity/State/ZIP Code Phone Number [facility] [address] [place] [address], * Resp Pathogens Panel/SARS CoV-2 (04/27/2025 2:20 AM EST)ComponentValueRef RangeTest MethodAnalysis TimePerformed AtPathologist SignatureSARS COV 2 BY PCRNot DetectedNot Cjazccja65/21/2025 4:21 AM [facility] LABORATORYADENOVIRUSNot DetectedNot Zzwfgzic04/21/2025 4:21 AM [facility] LABORATORYCORONAVIRUS 229ENot DetectedNot Lhmvchll41/21/2025 4:21 AM [facility] LABORATORYCORONAVIRUS EIX3Vdy DetectedNot Lcarelxo50/21/2025 4:21 AM [facility] LABORATORYCORONAVIRUS JX28Gko DetectedNot Mivryhzj67/21/2025 4:21 AM [facility] LABORATORYCORONAVIRUS UQ56Rje DetectedNot Vocvjzyf48/21/2025 4:21 AM [facility] LABORATORYHUMAN METAPNEUVIRUSNot DetectedNot Detected 04/27/2025 4:21 AM [facility] LABORATORYRHINO/ENTEROVIRUSNot DetectedNot Bpbjpppx75/21/2025 4:21 AM [facility] INFLUENZA ANot DetectedNot Zjqykyyn11/21/2025 4:21 AM [facility] LABORATORYINFLUENZA BNot DetectedNot Ysxfxawc81/21/2025 4:21 AM [facility] LABORATORYPARAINFLUENZA 1Not DetectedNot Detected 04/27/2025 4:21 AM [facility] LABORATORYPARAINFLUENZA 2Not DetectedNot Mpatolxh75/21/2025 4:21 AM [facility] PARAINFLUENZA 3Not DetectedNot Ojdpshem53/21/2025 4:21 AM [facility] LABORATORYPARAINFLUENZA 4Not DetectedNot Lcjbyqtf17/21/2025 4:21 AM [facility] LABORATORYRESP SYNCYTIAL VIRUSNot DetectedNot Flbvjkgw14/21/2025 4:21 AM [facility] LABORATORYBORD PARAPERTUSSISNot DetectedNot Zhtxxruo75/21/2025 4:21 AM [facility] LABORATORYBORDETELLA PERTUSSISNot DetectedNot Xfijaekm50/21/2025 4:21 AM [facility] LABORATORYCHLAM.PNEUMONIAENot DetectedNot Mmjtketu87/21/2025 4:21 AM [facility] LABORATORYMYCOPLASMA PNEUMONIAENot DetectedNot Wigtaolg43/21/2025 4:21 AM [facility] LABORATORYSpecimen (Source)Anatomical Location / LateralityCollection Method / VolumeCollection TimeReceived TimeSwabNasopharyngeal structure / Vogqcoj1204/27/2025 2:20 AM EST04/27/2025 3:19 AM [facility] LABORATORY - 04/27/2025 4:21 AM [facility] The [employer] Respiratory Panel 2.1 (RP2.1) [...] possible respiratory tract infection. Authorizing ProviderResult TypeResult StatusTanCranston General HospitalROBIOLOGY - GENERAL ORDERABLESFinal ResultPerforming OrganizationAddressCity/State/ZIP Code Phone Number [facility] [address] [place] [address], * Strep B screen (04/27/2025 2:20 AM EST)ComponentValueRef RangeTest Method Analysis TimePerformed AtPathologist SignatureCULTURE RESULTSNEGATIVE FOR GROUP B STREPTOCOCCUS BY NUCLEIC ACID XKAAPLKNKSXRE72/22/2025 9:39 AM EST [facility] LABORATORYSpecimen (Source)Anatomical Location / LateralityCollection Method / VolumeCollection TimeReceived TimeSwab (Vagina/Rectum)04/27/2025 2:20 AM EST04/27/2025 3:19 AM EST Narrative Authorizing ProviderResult TypeResult StatusTanCranston General HospitalROBIOLOGY - GENERAL ORDERABLESFinal ResultPerforming OrganizationAddressCity/State/ZIP Code Phone Number [facility] [address] [place] [address], * Rupture of membrane (ALL) (04/27/2025 1:43 AM EST)ComponentValueRef RangeTest MethodAnalysis TimePerformed AtPathologist SignatureRUPTURE OF ANGTBGNHKtsvankeRrsjjfbu48/21/2025 3:08 AM [facility] LABORATORYSpecimen (Source)Anatomical Location / LateralityCollection Method / VolumeCollection TimeReceived TimeSwabVaginal structure / Pvsqewx9604/27/2025 1:43 AM EST04/27/2025 2:13 AM EST Narrative Authorizing ProviderResult TypeResult StatusTansarwat Truong MDBODY FLUIDS AND STOOLS ORDERABLESFinal ResultPerforming OrganizationAddressCity/State/ZIP Code Phone Number [facility] [address] [place] [address], * Hepatitis C Virus Quantitative by NAAT (04/27/2025 12:13 AM EST)ComponentValue Ref RangeTest MethodAnalysis TimePerformed AtPathologist SignatureHCV InterpretationNot DetectedNot Btdkhchv19/22/2025 10:38 AM [facility] LABORATORYSpecimen (Source)Anatomical Location / LateralityCollection Method / VolumeCollection TimeReceived TimeBloodVenous blood / Unknown Venipuncture / Ysiafka4904/27/2025 12:13 AM EST04/27/2025 12:25 AM EST Narrative Authorizing ProviderResult TypeResult StatusGaby HUNTER BLOOD ORDERABLESFinal ResultPerforming OrganizationAddressCity/State/ZIP CodePhone Number [facility] [address] [place] [address], * Syphilis Total (Unknown Syphilis Status) (04/27/2025 12:13 AM EST)Component ValueRef RangeTest MethodAnalysis TimePerformed AtPathologist Signature SYPHILIS TOTAL<0.2<=0.8 AI04/27/2025 7:02 AM [facility] LABORATORYSpecimen (Source)Anatomical Location / LateralityCollection Method / VolumeCollection TimeReceived TimeBloodVenous blood / UnknownVenipuncture / Pigvsls7804/27/2025 12:13 AM EST04/27/2025 12:25 AM EST Narrative [facility] - 04/27/2025 7:02 AM EST NON REACTIVE No serologic evidence of infection to Treponema pallidum. Repeat testing may be considered in patients with suspected acute or primary syphilis in 2 to 4 weeks. Authorizing ProviderResult TypeResult StatusTansarwat HUNTER BLOOD ORDERABLESFinal ResultPerforming OrganizationAddressCity/State/ZIP CodePhone Number [facility] [address] [place] [address], [place] [phone] * Antibody ID (04/27/2025 12:13 AM EST)ComponentValueRef RangeTest Method Analysis TimePerformed AtPathologist SignatureAntibody IDPassive D Antibody, Patient Received RHIG04/27/2025 2:35 AM ESTTTH BB - WELLSKYSpecimen (Source) Anatomical Location / LateralityCollection Method / VolumeCollection Time Received TimeBloodVenous blood / UnknownVenipuncture / Trflxea4304/27/2025 12:13 AM EST04/27/2025 12:19 AM EST Narrative Authorizing ProviderResult TypeResult StatusTansarwat Truong MDKangaDo BANK TEST ORDERABLESFinal ResultPerforming OrganizationAddressCity/State/ZIP CodePhone Number [facility] [address] [place] [place] [address], [place] * Type and screen (04/27/2025 12:13 AM EST)ComponentValueRef RangeTest Method Analysis TimePerformed AtPathologist RdpldxzviAXJY68/21/2025 2:18 AM ESTTTH BB - FGYUDZTIXJfczsrym66/21/2025 2:18 AM ESTTTH BB - WELLSKYAntibody Screen Hnxkohzm08/21/2025 2:18 AM ESTTTH BB - WELLSKYSpecimen (Source)Anatomical Location / LateralityCollection Method / VolumeCollection TimeReceived Time BloodVenous blood / UnknownVenipuncture / Vyffwnm0204/27/2025 12:13 AM EST 04/27/2025 12:19 AM EST Narrative Authorizing ProviderResult TypeResult StatusTansarwat Truong MDBLOOD BANK TEST ORDERABLESEdited Result - FinalPerforming OrganizationAddressCity/State/ZIP Code Phone Number [facility] [address] [place] [address], [place] * PST TOP (04/27/2025 12:08 AM EST)ComponentValueRef RangeTest MethodAnalysis TimePerformed AtPathologist SignatureExtra TubeAuto Mkxxofov87/21/2025 2:02 AM EST[facility] LABORATORYSpecimen (Source)Anatomical Location / LateralityCollection Method / VolumeCollection TimeReceived TimeBloodVenous blood / Usxskom1204/27/2025 12:08 AM EST04/27/2025 12:26 AM EST Narrative Authorizing ProviderResult TypeResult StatusDavid A Cook MDLAB BLOOD ORDERABLESFinal ResultPerforming OrganizationAddressCity/State/ZIP CodePhone Number [facility] [address] [place] [address], * [facility] OB FOLLOW-UP, 1 FETUS (04/14/2025 9:15 AM EST) Only the most recent of2 resultswithin the time period is included. Anatomical RegionLateralityModalityOB-GYNUltrasoundSpecimen (Source)Anatomical Location / LateralityCollection Method / VolumeCollection TimeReceived Time 04/14/2025 8:13 AM EST Narrative 04/14/2025 9:33 AM EST NAME: ??DESMOND GUTIERREZ : 1990 SEX: F Accession Number: [id number] ORDERING PHYSICIAN: ABIOLA CHRIS REFERRING PHYSICIAN: ABIOLA CHRIS Coding Procedures ? 60466: Ultrasound, uterus, real time with image documentation, [...] (oz) ? 5 oz EFW by: ?Hadlock (SBF-LV-WI-FL) Extended Tibia ??44.5 mm 27w 3d 67% Bibiana Napkin Band Wrapper ? 3.3 mm CM ? 8.8 mm [...] view. RVOT view. LVOT view. 3-vessel view. 5-pqozuh-vxpiymg view. Situs. Aortic arch view. ? Bicaval [...] GUTIERREZ : 1990 SEX: F Accession Number: [id number] ORDERING PHYSICIAN: ABIOLA CHRIS REFERRING PHYSICIAN: ABIOLA CHRIS Coding Procedures 12738: Ultrasound, uterus, real time with image documentation, [...] EFW (oz) 5 oz EFW by: Hadlock (IFC-HH-TI-FL) Extended Tibia 44.5 mm 27w 3d 67% Bibaina Napkin Band Wrapper 3.3 mm CM 8.8 mm 95% Nicolaides [...] view. RVOT view. LVOT view. 3-vessel view. 1-zkbkgi-epnnyxy view. Situs. Aortic arch view. Bicaval view. [...] thepatient as necessary. Authorizing ProviderResult TypeResult StatusAbiola CASTILLO US ORDERABLESFinal Result * Ultrasound - Office [...] TimePerformed AtPathologist SignatureHPV 16NegativeNegative 10/02/2024 2:06 PM [facility] LABORATORYHPV 18Negative Fyfiuhsb87/28/2025 2:06 PM [facility] LABORATORYOTHER HIGH RISK VODDzxoxtzpEcqrqluw13/28/2025 2:06 PM [facility] LABORATORYComment:HPV types 31, 33, 35, 39, 45, 52, 56, 58, 59, 66, and 68 DNA were undetectable.Specimen (Source)Anatomical Location / LateralityCollection Method / VolumeCollection TimeReceived TimeThinPrep cytology technique (qualifier value)Cervix uteri structure / Jcjysxm6510/01/2024 1:50 PM EDT 10/02/2024 3:04 AM EDT Narrative Authorizing ProviderResult TypeResult StatusIvory Du PROPERTY INVESTOR-CNMLAB BLOOD ORDERABLESFinal ResultPerforming OrganizationAddressCity/State/ZIP CodePhone Number [facility] [address] [place] [address], [place] [phone] from Last 3 Months or Most Recently Relevant to Health Maintenance Insurance Advance Directives * Full Code (Latest Code Status on File) Date ActivatedDate DcfiuarcuooZdfuwtmn04/21/2025 12:01 AM04/28/2025 1:30 AM * Full Code Date ActivatedDate DsvubvupdbiIvrwfeyy12/19/2024 10:52 PM03/28/2024 11:13 PM * Full Code Date ActivatedDate InactivatedComments12/08/2017 8:05 AM12/10/2017 9:50 AM * Full Code Date ActivatedDate InactivatedComments12/01/2017 8:08 AM12/02/2017 12:35 PM Care Teams Team MemberRelationshipSpecialtyStart DateEnd Date Rebecca Rizvi APRN-C SOFTWARE ENGINEER [address] [place] [phone] PCP - GeneralNurse Practitioner08/23/22
--- OUTSIDE RECORDS SUMMARY | 2025-05-05 11:31 | XMS_ITS | Encounter Summary ---
Author Organization [facility] Address [address] [place] [address] Care Team Providers Care Production Utility Worker Name Role Phone Rebecca Rizvi MD Primary Care Provider [phone] Encounter Details DateTypeDepartmentCare Team (Latest Contact Info)Ytslmzfghnz79/20/2025linisync Result Encounter [facility] Unsolicited Rene Hayden, DO [address] [facility] [address] [place], [facility] Social History Tobacco UseTypesPacks/DayYears UsedDateSmoking Tobacco: Never Assessed Estimated Date of WbsrhbffEjeadhvmWsn56/11/2026Based on UltrasoundSex and Gender InformationValueDate RecordedSex Assigned at BirthNot on fileLegal SexFemale 07/20/2022 6:43 PM EDTGender IdentityNot on fileSexual OrientationNot on file documented as of this encounter Plan of Treatment DateTypeDepartmentCare Team (Latest Contact Info)Tjxubctcrrn23/31/2025 10:20 AM ESTRoutine [facility]TA [address] [place] [address] [place] [address] Jaylin Chung, NATHANIEL [address] [facility] [place] [address] 05/21/2025 3:50 PM ESTRoutine NOMTiffany PERALTA [address] [facility] [address] Rene Hayden DO [address] [place] [address] documented as of this encounter Procedures Procedure NamePriorityDate/TimeAssociated DiagnosisCommentsAMNISURERoutine 04/26/2025 3:25 PM EST [facility] UA (CLEAN/CATCH) COKE OVEN MASON/MICRO IF IND.Zykvykm3504/26/2025 3:25 PM EST documented in this encounter [...] CLINISYNC [facility] * (ABNORMAL) [facility] UA (CLEAN/CATCH) COKE OVEN MASON/MICRO IF IND. (04/26/2025 3:25 PM EST) ComponentValueRef [...] Team MemberRelationshipSpecialtyStart DateEnd Date Rebecca Rizvi MD [address] [place] [phone] PCP - GeneralFamily Medicine01/03/25documented as of this encounter
--- OUTSIDE RECORDS SUMMARY | 2025-05-05 11:31 | XMS_ITS | Encounter Summary ---
Author Organization [facility] Address [address] [place] [address] Care Team Providers Care Business Resiliency Manager Name Role Phone Rebecca Rizvi MD Primary Care Provider Encounter Details DateTypeDepartmentCare Team (Latest Contact Info)Ptqzjcsbgji52/23/2025Telephone [facility] [address] [facility] [place] [address] Evelyn Kee LPN Social History Tobacco UseTypesPacks/DayYears UsedDateSmoking Tobacco: Never Assessed Estimated Date of QhyljldcUfwrftkgXvo19/11/2026Based on UltrasoundSex and Gender InformationValueDate RecordedSex Assigned at BirthNot on fileLegal SexFemale 07/20/2022 6:43 PM EDTGender IdentityNot on fileSexual OrientationNot on file documented as of this encounter Miscellaneous Notes * Telephone Encounter - Evelyn Kee LPN - 04/29/2025 10:02 AM EST 10:02am Called patient as she had called office yesterday and today inquiring about plan of care. Patient voiced that she did leave [facility] AMA due to having other children [...] that STAT referral would be made to [facility] and that NST/BPP orders would be sent to [facility] if she was unable to schedule with them prior to needing more monitoring. Called and spoke with Gena @ [facility] to inform her of orders and history of patient. Information will also be sent for [facility] in regards to medical history for continuation of care. Sent patient Rutanethart Message with information. Patient to reach out to office with any questions/concerns. Evelyn Brannon LPN documented in this encounter Plan of Treatment DateTypeDepartmentCare Team (Latest Contact Info)Cibblhkjdjg93/31/2025 10:20 AM ESTRoutine NOMTiffany PERALTA [address] [facility] [place] [address] Jaylin Chung, DISPENSING OPERATOR [address] [facility] [place] [address] 05/21/2025 3:50 PM ESTRoutine NOMTiffany PERALTA [address] [facility] [place] [address] Rene Hayden DO [address] [facility] [place] [address] NameTypePriorityAssociated DiagnosesOrder ScheduleUS biophysical profile w non [...] Team MemberRelationshipSpecialtyStart DateEnd Date Rebecca Rizvi MD [address] [place] [phone] PCP - GeneralFamily Medicine01/03/25documented as of this encounter
--- OUTSIDE RECORDS SUMMARY | 2025-05-05 11:31 | XMS_ITS | Encounter Summary ---
Author Organization [employer] tem Address [id number] [address] [place] [address] Care Team Providers Care Outside Sales Inspector Name Role Phone Rebecca Rizvi BLANCA-ELECTRIC WELDER HELPER Primary Care Provider Encounter Details DateTypeDepartmentCare Team (Latest Contact Info)Vijiihndveg95/21/2025Travel Social History Tobacco UseTypesPacks/DayYears UsedDateSmoking Tobacco: FormerCigarettes0.58.1 Started: 04/05/2017Smokeless Tobacco: NeverAlcohol UseStandard Drinks/Week CommentsNot Currently3 (1 standard drink = 0.6 oz pure alcohol)occasionalAHC UtilitiesAnswerDate RecordedIn the past 12 months has the electric, gas, oil, or water [employer] threatened to shut off services in your home?No03/28/2024Overall Financial Resource Strain (CARDIA)AnswerDate RecordedHow hard is it for you to pay for the very basics like food, housing, medical care, and heating?Not hard at all05/07/2024HQ-2AnswerDate RecordedTotal Qtwvs641PRAPARE - TransportationAnswerDate RecordedIn the past 12 months, has lack of transportation kept you from medical appointments or from getting medications?No 03/28/2024In the past 12 months, has lack of transportation kept you from meetings, work, or from getting things needed for daily living?No03/28/2024 [place] Depression ScaleAnswerDate RecordedEdinburgh Depression Scale Wuvoe322The thought of harming myself has occurred to [...] household?No03/28/2024hildcare AnswerDate RecordedDo problems getting early childhood associate teacher make it difficult for you to work or study?No05/07/2024EmploymentAnswerDate RecordedEmploymentUnknown 10/15/2018Hunger ScreeningAnswerDate RecordedWithin the past 12 months we worried whether our food would run out before we got money to buy more.Never True03/11/2025Within the past 12 months the food we bought just didn't last and we didn't have money to get more.Never True03/11/2025Purpose - LifeAnswerDate RecordedPurpose and direction in lsbdFfnfcgd88/10/2021Estimated Date of WusmdrgkIdyfmmldPni22/11/2026Based on UltrasoundSex and Gender InformationValue Date RecordedSex Assigned at EimtlSwzwmw59/02/2022 7:15 PM EDTLegal SexFemale 12/09/2014 2:44 PM EDTGender MlmrjsvlJycuvr75/02/2022 7:15 PM EDTSexual GwoojstmitjEojckkyn40/02/2022 7:15 PM EDTdocumented as of this encounter Plan of Treatment DateTypeDepartmentCare Team (Latest Contact Info)Subwhzgsfsg48/08/2026 8:30 AM ESTAppointment [facility] [address] [place] [phone] 05/15/2025 11:00 AM ESTOffice Visit Maternal- Medicine at [facility] [address] [place] [phone] Charlene Lees MD [address], [address] [place] [address] [place] [address] 11/04/2025 4:00 PM EDTOffice Visit [facility] [address] [place] [phone] Rebecca Rizvi APRN-CNP [address] [place] [phone] documented as of this encounter Visit Diagnoses Not on filedocumented in this encounter Additional Health Concerns InfectionOnset DateLast IndicatedResolved TimeRespiratory Rule-Out04/27/2025 4:21 AM ESTAssessmentNoted TimePHQ-9 Depression Total Score: 3:04 PM EDTA Body Mass Index follow-up plan has been documented for the yubkvwg9909/11/2018 4:32 PM EDTdocumented as of this encounter Care Teams Team MemberRelationshipSpecialtyStart DateEnd Date Rebecca Rizvi APRN-CNP [address] [place] [phone] PCP - GeneralNurse Practitioner08/23/22documented as of this encounter
--- OUTSIDE RECORDS SUMMARY | 2025-05-05 11:31 | XMS_ITS | Encounter Summary ---
Author Organization [facility] Address [address] [place] [address] Care Team Providers Care Streaming Media Specialist Name Role Phone Rebecca Rizvi MD Primary Care Provider [phone] Encounter Details DateTypeDepartmentCare Team (Latest Contact Info)Frducpfuxpe50/24/2025linisync Result Encounter NOMS External Department Unsolicited Mamadou Hayden, DO [address] [facility] [address] [place], [facility] Social History Tobacco UseTypesPacks/DayYears UsedDateSmoking Tobacco: Never Assessed Estimated Date of LbuhxrhbJgsvzodzBzt29/11/2026Based on UltrasoundSex and Gender InformationValueDate RecordedSex Assigned at BirthNot on fileLegal SexFemale 07/20/2022 6:43 PM EDTGender IdentityNot on fileSexual OrientationNot on file documented as of this encounter Plan of Treatment DateTypeDepartmentCare Team (Latest Contact Info)Xwgktqviwrn72/31/2025 10:20 AM ESTRoutine [facility] [place] PERALTA [address] [place] [address] [place] [address] Jaylin Chung, NATHANIEL [address] [facility] [place] [address] 05/21/2025 3:50 PM ESTRoutine NOMTiffany PERALTA [address] [facility] [place] [address] Mamadou Hayden DO [address] [place] [address] documented as of this encounter Procedures Procedure NamePriorityDate/TimeAssociated DiagnosisCommentsUS OB BPP W NON-PIZJXP0104/30/2025 12:06 PM EST documented in this encounter Results * US OB BPP W NON-STRESS (04/30/2025 12:06 PM EST)Anatomical Region LateralityModalityOtherSpecimen (Source)Anatomical Location / Laterality Collection Method / VolumeCollection TimeReceived Time04/30/2025 12:06 PM EST Narrative 04/30/2025 12:08 PM EST [facility] ?[address] ? [place] [address] ? Ultrasound Report ? Signed ? Patient: DESMOND,ESE N ?MR#: [id number] ?? : 1990 ?Acct:[id number] ?? Age/Sex: 34 / F ?ADM Date: 04/30/25 ?? Loc: FBC ??250-1 ? Attending Dr: Mamadou Hayden D.O. ? Ordering Physician: Mamadou Hayden D.O. ?? Date of Service: 04/30/25 ?? Procedure(s): US OB BPP w non-stress ?? Accession Number(s): [id number] ? cc: Mamadou Hayden D.O.; Rebecca Rizvi BIKE TECHNICIAN ? [facility] ? [address] ? [place] [address] ? Patient Name: ?? ESE Brigette DESMOND ? MRN: [facility]:[id number] ? date: 1990 ?Sex: F ?? Assigned Patient Location: FBC ?? Current Patient Location: FBC ?? Accession/Order Number: [id number] ?? Exam Date: 04/30/2025 ??11:08 ?Report Date: 04/30/2025 ??12:06 ? At the request of: ?? MAMADOU ??DORCAS ??DO ? Procedure: ??US OB BPP w [...] Dictation Location: RADIO-PC-30 ? Electronically authenticated by: [id number] ??Y ?? Date: 04/30/2025 ??12:06 ? Dictated By: ?Malena Salcido M.D. ? Signed By: ?12/24/25 1208 ? DD/ 1206 ? TD/TT: ? Freight Rate Analyst: Procedure Note Radiology, Radiologist, MD - 04/30/2025 [place] [address] Ultrasound Report Signed Patient: ESE BADILLO NMR#: [id number] : 1990Acct:[id number] Age/Sex: 34 / FADM Date: 04/30/25 Loc: [facility] 250-[address]: Mamadou Hayden D.O. Ordering Physician: Mamadou Hayden D.O. Date of Service: 04/30/25 Procedure(s): US OB BPP w non-stress Accession Number(s): [id number] cc: Mamadou Hayden D.O.; Rebecca Rizvi NP The [address] [address] Patient Name: ESE BADILLO MRN: [id number] date: 1990 Sex: F Assigned Patient Location: [facility] Current Patient Location: [facility] Accession/Order Number: [id number] Exam Date: 04/30/2025 11:08 Report Date: 04/30/2025 [...] Salcido M.D. 04/30/2025 12:06 PM Dictation Location: [place] [address] Electronically authenticated by: [id number] Y Date: 2:06 Dictated By: Malena Salcido M.D. Signed By:04/30/25 1208 DD/ 1206 TD/TT: Freight Rate Analyst: Authorizing ProviderResult TypeResult StatusCoreindy Hayden DOCLINISYNC IMAGINGFinal Result documented in this encounter Visit Diagnoses Not on filedocumented in this encounter Care Teams Team MemberRelationshipSpecialtyStart DateEnd Date Rebecca Rizvi MD [address] [place] [phone] PCP - GeneralFamily Medicine01/03/25documented as of this encounter
--- OUTSIDE RECORDS SUMMARY | 2025-05-05 11:31 | XMS_ITS | Encounter Summary ---
Author Organization [facility] Address [address] [place] [address] Care Team Providers Care Park Police Name Role Phone Rebecca Rizvi MD Primary Care Provider [phone] Encounter Details DateTypeDepartmentCare Team (Latest Contact Info)Jogahgvhogz91/20/2025linisync Result Encounter NOMS External Department Unsolicited Mamadou Hayedn, DO [address] [facility] [address] [place], [facility]11 Social History Tobacco UseTypesPacks/DayYears UsedDateSmoking Tobacco: Never Assessed Estimated Date of FrlbolnyXyrndrtrCuq73/11/2026Based on UltrasoundSex and Gender InformationValueDate RecordedSex Assigned at BirthNot on fileLegal SexFemale 07/20/2022 6:43 PM EDTGender IdentityNot on fileSexual OrientationNot on file documented as of this encounter Plan of Treatment DateTypeDepartmentCare Team (Latest Contact Info)Ekybjwslfkj05/31/2025 10:20 AM ESTRoutine [facility] [place] PERALTA [address] [place] [address] [place] [address] Jaylin Chung, NATHANIEL [address] [facility] [place] [address] 05/21/2025 3:50 PM ESTRoutine NOMTiffany PERALTA [address] [facility] [place] [address] Mamadou Hayden DO [address] [place] [address] documented as of this encounter Procedures Procedure NamePriorityDate/TimeAssociated DiagnosisCommentsALL CBC WITH AUTO QRJUTtpkyck93/20/2025 6:50 PM EST US OB ADDUFFBE10/20/2025 5:17 PM EST documented in this encounter Results * (ABNORMAL) ALL CBC WITH AUTO DIFF (04/26/2025 6:50 PM EST)ComponentValueRef RangeTest MethodAnalysis TimePerformed AtPathologist SignatureTBH WBC9.14.0 - 11.0 10 3/uLTBHTBH RBC3.77(L)4.20 - 5.40 10 6/uLTBHTBH HGB11.4(L)12.0 - 16.0 g/dLTBHTBH HCT33.1(L)36.0 - 48.0 %TBHTBH MCV87.881.0 - 99.0 fLTBHTBH MCH30.2 26.7 - 34.0 pgTBHTBH MCHC34.429.9 - 35.2 g/dLTBHTBH RDW13.011.0 - 15.0 %TBHTBH KTP964865 - 450 10 3/uLTBHTBH MPV10.59.5 - 13.5 [...] EST Narrative 04/26/2025 5:20 PM EST [facility] ?[address] ? [place], [place] [address] ? Ultrasound Report ? Signed ? Patient: ELMES,ESE N ?MR#: [id number] ?? : 1990 ?Acct:[id number] ?? Age/Sex: 34 / F ?ADM Date: 04/26/25 ?? Loc: [facility]BC ??250-1 ? Attending Dr: Mamadou Hayden D.O. ? Ordering Physician: Mamadou Hayden D.O. ?? Date of Service: 04/26/25 ?? Procedure(s): US OB placenta ?? Accession Number(s): [id number] ? cc: Mamadou Hayden D.O.; Rebecca Rizvi RIVET CATCHER ? [facility] ? [address] ? [place] [address] ? Patient Name: ?? ESE BADILLO ? MRN: [id number] ? date: 1990 ?Sex: F ?? Assigned Patient Location: FBC ?? Current Patient Location: [facility]BC ?? Accession/Order Number: [id number] ?? Exam Date: 04/26/2025 ??16:29 ?Report Date: [...] Dictation Location: RADIO-PC-18 ? Electronically authenticated by: [id number] ??Y ?? Date: 04/26/2025 ??17:17 ? Dictated By: ?Howard Huang M.D. ? Signed By: ?04/26/250 ? DD/ 1717 ? TD/TT: ? Cornice Maker: Procedure Note Radiology, Radiologist, MD - 04/26/2025 [place] [address] Ultrasound Report Signed Patient: ESE BADILLO NMR#: [id number] : 1990Acct:[id number] Age/Sex: 34 / FADM Date: 04/26/25 Loc: [facility] 250-[address]: Mamadou Hayden D.O. Ordering Physician: Mamadou Hayden D.O. Date of Service: 04/26/25 Procedure(s): US OB placenta Accession Number(s): [id number] cc: Mamadou Hayden D.O.; Rebecca Rizvi RIVET CATCHER The [address] [address] Patient Name: ESE BADILLO MRN: [id number] date: 1990 Sex: F Assigned Patient Location: [facility] Current Patient Location: [facility] Accession/Order Number: [id number] Exam Date: 04/26/2025 16:29 Report Date: 04/26/2025 [...] Jr., D.O. 04/26/2025 5:17 PM Dictation Location: [place] [address] Electronically authenticated by: [id number] Y Date: 7:17 Dictated By: Howard Huang M.D. Signed By:04/26/25 172 DD/ 16 TD/TT: Cornice Maker: Authorizing ProviderResult TypeResult StatusCorey Jackelyn DOCLINISYNC IMAGINGFinal Result documented in this encounter Visit Diagnoses Not on filedocumented in this encounter Care Teams Team MemberRelationshipSpecialtyStart DateEnd Date Rebecca Rizvi MD [address] [place] [phone] PCP - GeneralFamily Medicine01/03/25documented as of this encounter
--- OUTSIDE RECORDS SUMMARY | 2025-05-05 11:32 | XMS_ITS | Encounter Summary ---
Author Organization [facility] [employer] [facility] tem Address [facility] [address] [place] [address] Care Team Providers Care Director Of Corporate Real Estate Name Role Phone Rebecca Rizvi BLANCA-SIGHT EFFECTS SPECIALIST Primary Care Provider Encounter Details DateTypeDepartmentCare Team (Latest Contact Info)Cerxqxektcg66/24/2025 Documentation Maternal- Medicine at [facility] [address] [phone] Eliza Chinchilla, [facility] [address] [facility], [address] [place] [address] Social History Tobacco UseTypesPacks/DayYears UsedDateSmoking Tobacco: FormerCigarettes0.58.1 Started: 04/05/2017Smokeless Tobacco: NeverAlcohol UseStandard Drinks/Week CommentsNot Currently3 (1 standard drink = 0.6 oz pure alcohol)occasionalAHC UtilitiesAnswerDate RecordedIn the past 12 months has the TabletKiosk, gas, oil, or water [employer] threatened to shut off services in your home?No03/28/2024Overall Financial Resource Strain (CARDIA)AnswerDate RecordedHow hard is it for you to pay for the very basics like food, housing, medical care, and heating?Not hard at all05/07/2024HQ-2AnswerDate RecordedTotal Nrqco199PRAPARE - TransportationAnswerDate RecordedIn the past 12 months, has lack of transportation kept you from medical appointments or from getting medications?No 03/28/2024In the past 12 months, has lack of transportation kept you from meetings, work, or from getting things needed for daily living?No03/28/2024 [place] Depression ScaleAnswerDate RecordedEdinburgh Depression Scale Xokbo887The thought of harming myself has occurred to [...] a household?No03/28/2024hildcare AnswerDate RecordedDo problems getting child care counselor make it difficult for you to work or study?No05/07/2024EmploymentAnswerDate RecordedEmploymentUnknown 10/15/2018Hunger ScreeningAnswerDate RecordedWithin the past 12 months we worried whether our food would run out before we got money to buy more.Never True03/11/2025Within the past 12 months the food we bought just didn't last and we didn't have money to get more.Never True03/11/2025Purpose - LifeAnswerDate RecordedPurpose and direction in pbqqAmewlms00/10/2021Estimated Date of ZqvzvbvwKcmsggjpTnk21/11/2026Based on UltrasoundSex and Gender InformationValue Date RecordedSex Assigned at HeuqfTzsrdj83/02/2022 7:15 PM EDTLegal SexFemale 12/09/2014 2:44 PM EDTGender KadbbtpuDmxvzk31/02/2022 7:15 PM EDTSexual YxajkzrtqszEexywsrc51/02/2022 7:15 PM EDTdocumented as of this encounter Progress Notes * Eliza Chinchilla APRN-DANIM - 04/30/2025 10:09 AM EST Received voice message from Ese who stated she had questions about her plan of care. Spoke with patient who had many questions about the plan for her care. Automation Controls Expert told her Dr. Lees's recommendation for Dr. Hayden : NSTs 2x/week PAMELA weekly Office appointments weekly with temperature checks. Delivery at 34 weeks due to PROM Patient questioned why - explained staying much past that increases risk of complications and benefits of delivery outweight risk of prolonging . Patient states understanding. Patient unsure if her care is being transferred to [facility]. States Dr. Hayden uncomfortable with delivery before 36 weeks. Automation Controls Expert will clarify with Dr. Hayden curry. Patient scheduled for NSTs/ultrasounds 04/30 & 05/02 at [place]. Denies any s/s chorio. Automation Controls Expert reviewed s/s, encouraged to watch for fever, chills, abd pain or change in discharge, especially bright red bleeding. If fever or other s/s can come to [place] or [place]. If bleeding go to the nearest hospital with an OB department - [place]. +FM of Twin B. HOMAR Mcelroy 04/30/25 1033 * HOMAR Mcelroy - 04/30/2025 10:09 AM EST Automation Controls Expert received call from [facility] that they have received transfer of care for Ese and they will call her to schedule her curry. Automation Controls Expert explained current plan in place for NSTs/Ultrasounds this weekat [place]. HOMAR Mcelroy 04/30/25 1033 documented in this encounter Plan of Treatment DateTypeDepartmentCare Team (Latest Contact Info)Nghgyporrro16/08/2026 8:[address] [facility] Imaging [address] [place] [address] 05/15/2025 11:00 AM ESTOffice Visit Maternal- Medicine at [facility] [address] [place] [address] Charlene Lees MD [address], [address] [place] [address] 11/04/2025 4:00 PM EDTOffice Visit [facility] [address] [place] [phone] Rebecca Rizvi APRN-CNP [address] [place] [phone] documented as of this encounter Visit Diagnoses Not on filedocumented in this encounter Additional Health Concerns AssessmentNoted TimePHQ-9 Depression Total Score: 3:04 PM EDTA Body Mass Index follow-up plan has been documented for the vmlwjtj1009/11/2018 4:32 PM EDTdocumented as of this encounter Care Teams Team MemberRelationshipSpecialtyStart DateEnd Date Rebecca Rizvi APRN-CNP [address] [place] [address] PCP - GeneralNurse Practitioner08/23/22documented as of this encounter
[2025-05-05 11:34] VITALS: BP 95/66; PULSE 116
--- NOTE | 2025-05-05 11:55 | US_ITS ---
The [address] [address] Patient Name: BRENDA LOGAN MRN: [id number] date: 1990 Sex: F Assigned Patient Location: Current Patient Location: Accession/Order Number: [id number] Exam Date: 05/05/2025 11:56 Report Date: 05/05/2025 13:14 At the request of: MAMADOU TOSCANO DO Procedure: US OB BPP w non-stress BIOPHYSICAL PROFILE: CLINICAL INFORMATION: Twin following selective reduction COMPARISON: 05/02/2025 There is redemonstration of a twin with selective demise of twin A . Twin B is in cephalic presentation. The reported gestational age is 29 weeks 5 days. The heart rate measures 165 beats per minute. FINDINGS: TONE: 1 or more episodes of activity extension and flexion of extremity or opening and closing of the hand [Y] 2/2 GROSS BODY MOVEMENTS: 3 or more discrete body or limb movements [Y] 2/2 BREATHING MOVEMENTS: 1 or more episodes of breathing lasting at least 30 seconds [Y] 2/2 PAMELA: A single deepest vertical pocket of amniotic fluid greater than 2 cm [Y] 2/2 PAMELA: 13.6 cm Total score: 8/8 US/US OB BPP w non-stress IMPRESSION: NORMAL BIOPHYSICAL PROFILE FOR FETUS B. Impression dictated by: Malena Salcido M.D. 05/05/2025 1:14 PM Dictation Location: [place] [address] Electronically authenticated by: [id number] Y Date: 05/05/2025 13:14
== END 2025-05-05 12:23 | disposition home or self-care (01) ==
LOC: US 11:27 → FBC 11:30
PROVIDERS: PCP Nurse Practitioner Family; Visit Provider Obstetrics & Gynecology
DX: O26.893 Other specified pregnancy related conditions, third trimester (principal); O30.003 Twin pregnancy, unspecified number of placenta and unspecified number of amniotic sacs, third trimester; Z14.8 Genetic carrier of other disease; Z3A.29 29 weeks gestation of pregnancy
CPT/HCPCS: 76818

== ENCOUNTER 2025-05-07 11:50 | Outpatient (OUT) | payer MEDICAID, SELFPAY ==
--- OUTSIDE RECORDS SUMMARY | 2025-04-23 13:40 | XMS_ITS | Encounter Summary ---
Author Organization [facility] Address [address] [place] [address] Care Team Providers Care Varitype Operator Name Role Phone Rebecca Rizvi MD Primary Care Provider [phone] Reason for Visit * ReasonCommentsRoutine Visit Encounter Details DateTypeDepartmentCare Team (Latest Contact Info)Upwcznyitck73/17/2025 1:40 PM ESTRoutine [facility] [address] [facility] [place] [address] Rene Hayden DO [address] [facility] [place] [address] Third trimester ([facility]); 28 weeks gestation of ([facility]); Multigravida of advanced maternal age in second trimester ([facility]); Twin following selective reduction, antepartum ([facility]) Social History Tobacco UseTypesPacks/DayYears UsedDateSmoking Tobacco: Never Assessed Estimated Date of RrrudhomVliieiiqOpr21/11/2026Based on UltrasoundSex and Gender InformationValueDate RecordedSex Assigned at BirthNot on fileLegal SexFemale 07/20/2022 6:43 PM EDTGender IdentityNot on fileSexual OrientationNot on file documented as of this encounter Last Filed Vital Signs Vital SignReadingTime TakenCommentsBlood Ptdkfcjy645/7004/23/2025 1:54 PM EST Pulse--Temperature--Respiratory Rate--Oxygen Saturation--Inhaled Oxygen Concentration--Jlflba91.9 kg (185 lb)04/23/2025 1:54 PM ESTHeight--Body Mass Index--documented in this encounter Progress Notes * Malena Betts, POWER PLANT OPERATOR APPRENTICE - 04/23/2025 1:40 PM EST Reason for [...] of advanced maternal age in second trimester ([facility]) 03/13/2025 H/O LEEP 03/13/2025 HSV (herpes simplex virus) infection 03/13/2025 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 Exam conducted with a termite exterminator present. Vitals: There is no height or weight on file to calculate BMI. BP: 110/70 No LMP recorded. Patient is . Assessment/Plan ICD-10-CM 1. Third trimester ([facility]) Z34.93 2. 28 weeks gestation of ([facility]) Z3A.28 POCT urinalysis dipstick manually resulted 3. Multigravida of advanced maternal age in second trimester ([facility]) O09.522 4. Twin following selective reduction, antepartum ([facility]) O30.009 O31.30X0 Assessment/Plan Return OB: Patient presents [...] Plan of Treatment DateTypeDepartmentCare Team (Latest Contact Info)Sssdjdnuuxz95/14/2026 3:50 PM ESTRoutine [facility] [address] [facility] [place] [address] Rene Hayden DO [address] [place], [place] [phone] documented as of this encounter Procedures Procedure NamePriorityDate/TimeAssociated DiagnosisCommentsPOCT URINALYSIS YBQAAWGESrudtah22/17/2025 2:02 PM EST 28 weeks gestation of ([facility]) documented in this encounter Results * (ABNORMAL) [...] / LateralityCollection Method / VolumeCollection Time Received SiqpIyfsz69/17/2025 2:02 PM EST Narrative Authorizing ProviderResult TypeResult StatusCorey Jackelyn DOPOINT OF CARE TEST ENTER/EDIT ORDERABLESFinal Result documented in this encounter Visit Diagnoses Diagnosis Third trimester ([facility]) state, incidental 28 weeks gestation of ([facility]) Multigravida of advanced maternal age in second trimester ([facility]) Twin following selective reduction, antepartum ([facility]) documented in this encounter Care Teams Team MemberRelationshipSpecialtyStart DateEnd Date Rebecca Rizvi MD [address] [place] [phone] PCP - GeneralFamily Medicine01/03/25documented as of this encounter
--- OUTSIDE RECORDS SUMMARY | 2025-04-26 23:50 | XMS_ITS | Encounter Summary ---
Author Organization [facility] tem Address [id number] [place] [address] Care Team Providers Care Senior Validation Engineer Name Role Phone Rebecca Rizvi [employer] Primary Care Provider Reason for Referral * Misc (Routine) - Pending ReviewSpecialtyDiagnoses / ProceduresReferred By ContactReferred To Contact Procedures Discharge Follow-Up Luis Kuhn MD [address] [place] [address] Phone: tel: fax: Referral IDStatusReasonStart DateExpiration DateVisits RequestedVisits [id number] Reason for Visit * ReasonCommentsLEAKAGE/LOSS OF FLUID * Auth/CertSpecialtyDiagnoses / ProceduresReferred By ContactReferred To Contact Diagnoses Ruptured membranes Escobar Cook MD [facility], [place] [address] Phone: tel: fax: Referral IDStatusReasonStart DateExpiration DateVisits RequestedVisits [id number] Encounter Details DateTypeDepartmentCare Team (Latest Contact Info)Iwbhgdwkcjs24/20/2025 11:50 PM EST - 04/27/2025 11:24 PM ESTHospital Encounter [facility] Labor [address] [place] [id number] Escobar Cook MD [address] [facility], [address] [place] [address] premature rupture of membranes (PPROM) with unknown [...] RecordedIn the past 12 months has the [employer], gas, oil, or water [employer] threatened to shut off services in your home?No03/28/2024Overall Financial Resource Strain (CARDIA)AnswerDate RecordedHow hard is it for you to pay for the very basics like food, housing, medical care, and heating?Not hard at all05/07/2024HQ-2AnswerDate RecordedTotal Vlqij060PRAPARE - TransportationAnswerDate RecordedIn the past 12 months, has lack of transportation kept you from medical appointments or from getting medications?No 03/28/2024In the past 12 months, has lack of transportation kept you from meetings, work, or from getting things needed for daily living?No03/28/2024 [place] Depression ScaleAnswerDate RecordedEdinburgh Depression Scale Nwjoy713The thought of harming myself has occurred to [...] of a household?No4Childcare AnswerDate RecordedDo problems getting early childhood education coordinator make it difficult for you to work or study?No05/07/2024EmploymentAnswerDate RecordedEmploymentUnknown 10/15/2018Hunger ScreeningAnswerDate RecordedWithin the past 12 months we worried whether our food would run out before we got money to buy more.Never True03/11/2025Within the past 12 months the food we bought just didn't last and we didn't have money to get more.Never True03/11/2025Purpose - LifeAnswerDate RecordedPurpose and direction in vfruWwculjg48/10/2021Estimated Date of JxoxmlopGfwvzsxuMxj88/11/2026Based on UltrasoundSex and Gender InformationValue Date RecordedSex Assigned at NxkkuKmjffx51/02/2022 7:15 PM EDTLegal SexFemale 12/09/2014 2:44 PM EDTGender WtxxxzyaKgzbcz15/02/2022 7:15 PM EDTSexual YiasbryroqrFustaqag44/02/2022 7:15 PM EDTdocumented as of this encounter Last Filed Vital Signs Vital SignReadingTime TakenCommentsBlood Aathidol330/6004/27/2025 7:23 PM EST Shxsa340304/27/2025 7:23 PM JAGFwgwppkbviw38.7 ??C (98.1 ??F)04/27/2025 9:34 PM ESTRespiratory Owaq969106/28/2024 7:23 PM ESTOxygen Flceurdqhm94%04/27/2025 9:00 AM ESTInhaled Oxygen Concentration--Weight--Height--Body Mass Index--documented in this encounter Functional Status * HEENTQuestionAnswerDate of AssessmentAuthorHEENT (WDL)WDL106/28/2024 7:00 PM Shanika Mcginnis RN * IP Hunger/Food Insecurity ScreeningQuestionAnswerDate of AssessmentAuthor Hunger Screening Complete?Yes04/27/2025 12:24 AM Kenia Barton RNPt. Eligible for Food / YmjlkmwSw58/21/2025 12:24 AM Kenia Barton RNIf Eligible: Received Food BoxNot Offered to Yfwtmuj5304/27/2025 12:24 AM Kenia Rankin RN * Vaginal DischargeAnswerDate of RyldhydredCqkmjhQhpyz29/21/2025 7:00 PM Shanika Bearden RN * Preeclampsia AssessmentAnswerDate of IuwadvqmwqNtiohmXAI38/21/2025 7:00 PM Shanika Bearden RN * ActivityQuestionAnswerDate of AssessmentAuthorActivity PerformedResting in bed 04/27/2025 7:00 AM Kaleigh Mora RNActivity ResponseTolerated well 04/27/2025 7:00 AM Kaleigh Mora RNRange of MotionActive;All extremities 04/27/2025 7:00 AM Kaleigh Mora RNToileting AssistanceAmbulate to qekxlysp82/21/2025 7:00 AM Kaleigh Mora RNRepositionedTurns self 04/27/2025 7:00 AM Kaleigh Mora RNTransport XcogrgPbxlzwmbbn82/21/2025 7:00 AM Kaleigh Mora RNBed PositionSelf zysevhhps88/21/2025 7:00 AM Kaleigh Byers RN * Deterioration IndexQuestionAnswerDate of AssessmentAuthorDeterioration Index (30-60 mod; 60+ high)16.19106/28/2024 11:15 PM Raudel, Clindoc * ProgesteroneQuestionAnswerDate of AssessmentAuthorDid patient receive Progesterone this ?No04/27/2025 12:26 AM Kenia Barton RNDid the mother have a previous dnjplqpqZb03/21/2025 12:26 AM Kenia Barton RN * SteroidQuestionAnswerDate of AssessmentAuthorDid patient receive Steroids prior to admission for lung sjabljlvJyz28/21/2025 12:26 AM Kenia Barton RNDate last dose of Steroid was kcwqr7842071/21/2025 12:26 AM Kenia Barton RNTotal number of doses kbbwuqef211/21/2025 12:26 AM Kenia Barton RN * Human Trafficking ScreenQuestionAnswerDate of AssessmentAuthorHuman Trafficking ScreenNo present axqxkflt07/21/2025 12:20 AM Kenia Barton RN * PPH Admission and Labor Risk FactorsQuestionAnswerDate of AssessmentAuthor Prior , uterine surgery, other multiple czcufhzuygsk575/21/2025 8:00 PM Shanika Mcginnis RNGreater than 4 prior vaginal quxypj718 8:00 PM Shanika Mcginnis RNLarge myomas/fibroids > 4rd744 8:00 PM Shanika Mcginnis RNPlacenta Previa or low lying doomgjnh403/21/2025 8:00 PM Shanika Mcginnis RNSuspected placenta accreta or accreta fweekfll476/21/2025 8:00 PM Shanika Mcginnis RNKnown aabvjyrkxmqx119/21/2025 8:00 PM Shanika Mcginnis RN Abruption or active bleeding greater than bloody pvar369 8:00 PM Shanika Bearden RNStillbirth (IUFD) - Current csbe391 8:00 PM Shanika Mcginnis RNHCTdrutlqvyjkhdusa325/21/2025 8:00 PM Shanika Mcginnis RN Prolonged oxytocin (greater than 24 hours) 8:00 PM Shanika Mcginnis RNProlonged 2nd stage of bkxny660 8:00 PM Shanika Mcginnis RNDiagnosis of Uvcavohkegbqcu482/21/2025 8:00 PM Shanika Mcginnis RNDiagnosis of Ghaaxoaxzwlj258/21/2025 8:00 PM Shanika Mcginnis RNDiagnosis of HELLP Syndrome 8:00 PM Shanika Mcginnis RNPrevious hemorrhage0 04/27/2025 8:00 PM Shanika Mcginnis RN * Heart RateQuestionAnswerDate of AssessmentAuthorMonitorOther (Comment) 04/27/2025 7:00 AM Kaleigh Mora RNMultiple ?Yes04/27/2025 1:13 AM Kenia Barton RN * Uterine ActivityQuestionAnswerDate of AssessmentAuthorResting ToneSoft 04/27/2025 11:00 PM Shanika Mcginnis RNDurationna04/27/2025 11:00 PM Shanika Mcginnis RNCtx per 10 zrfd99006/28/2024 11:00 PM Shanika Mcginnis RNMonitorToco 04/27/2025 11:00 PM Shanika Mcginnis RNIntensityNot ffurigqmqc13/21/2025 11:00 PM Shanika Mcginnis RN * DTRQuestionAnswerDate of AssessmentAuthorDeep Tendon Reflex Response+2 04/27/2025 7:00 PM Shanika Mcginnis RNClonusAbsent04/27/2025 7:00 PM Shanika Mcginnis RN * OB InterventionsQuestionAnswerDate of AssessmentAuthorOther (comment)pt very upset, does not want to be on monitor at this time04/27/2025 10:12 AM Kaleigh Mora, KFIrcrhbgkftcTgvzukm22/21/2025 10:42 PM Shanika Mcginnis, RNFetal MonitorUltrasound dljtsvpi13/21/2025 10:42 PM Shanika Mcginnis RNResponse Resident at dtxeayh4604/27/2025 5:24 AM Kenia Barton RN * Pneumonia Vaccine Screen ages 19 to 64QuestionAnswerDate of AssessmentAuthor Are any of the following pneumococcal vaccine contraindications present? Patient refuses pneumonia breuwuw5404/27/2025 12:21 AM Kenia Barton RN Pneumococcal Vaccine [...] Rate Fetus BQuestionAnswerDate of AssessmentAuthorFHR Rhythm B Wtkotff5804/27/2025 11:00 PM Shanika Mcginnis RNAcceleration BAccelerations mdjykup1204/27/2025 11:00 PM Shanika Mcginnis RNDeceleration BNone04/27/2025 11:00 PM Shanika Mcginnis RNCharacteristics ZUvjypu1804/27/2025 11:00 PM Shanika Bearden RNMonitor Fetus BExternal US04/27/2025 11:00 PM Shanika Mcginnis RNBaseline Variability BModerate (Between 6 and 25 BPM)04/27/2025 11:00 PM Shanika Bearden RNBaseline Rate Q9918006/28/2024 11:00 PM Shanika Mcginnis RN Category BCategory I106/28/2024 11:00 PM Shanika Mcginnis RN * Vital SignsQuestionAnswerDate of TihvlshjagAbqnqxFB173/6004/27/2025 7:23 PM Shanika Mcginnis RNTemp98. 9:34 PM Shanika Mcginnis RNTemp srcOral 04/27/2025 9:34 PM Shanika Mcginnis ECFlkjm4208/21/2025 7:23 PM Shanika Mcginnis EKIiub2399/21/2025 7:23 PM Shanika Mcginnis, MDAtF16459/21/2025 9:00 AM Kaleigh Mora RNBP cuff sizeAdult (25-34cm)04/27/2025 9:00 AM Kaleigh Mora RNO2 DeviceNone (Room air)04/27/2025 7:23 PM Shanika Mcginnis RNHeart Rate CdbzgeSfouvyp72/21/2025 3:26 PM Kaleigh Mora RNBP LocationLeft arm 04/27/2025 3:26 PM Kaleigh Mora RNBP WveobhBwaguqgup04/21/2025 3:26 PM Kaleigh Mora RNMAP (mmHg)80106/28/2024 3:26 PM Kaleigh Mora RNIs this an Orthostatic BP?No04/27/2025 3:26 PM Kaleigh Mora RNPatient Position Ibqwbiu0704/27/2025 3:26 PM Kaleigh Mora RN * Oxygen TherapyQuestionAnswerDate of AssessmentAuthorPulse Oximetry Type Continuous;Rmjdhmvcow71/21/2025 9:00 AM Kaleigh Mora RN * Pain 2QuestionAnswerDate of AssessmentAuthorObserved ZufntkszXqrx65/21/2025 3:26 PM Kaleigh Mroa RN * Patient ObservationQuestionAnswerDate of AssessmentAuthorPatient Observations patient provided pillows and blankets to increase cueyuhi7604/27/2025 3:19 AM Kenia Barton RN * GastrointestinalQuestionAnswerDate of AssessmentAuthorGastrointestinal (WDL) WDL106/28/2024 7:00 PM Shanika Mcginnis RNGastrointestinal Additional JcdsjjbtacxEe06/21/2025 7:00 AM Kaleigh Mora RN * MusculoskeletalQuestionAnswerDate of AssessmentAuthorMusculoskeletal (WDL)WDL 04/27/2025 7:00 PM Shanika Mcginnis RN * GenitaliaQuestionAnswerDate of AssessmentAuthorFemale Genitalia Intact;Vxafyycrb04/21/2025 7:00 PM Shanika Mcginnis RN * Anus/RectumQuestionAnswerDate of AssessmentAuthorAnus/Rectum (WDL)WDL 04/27/2025 7:00 PM Shanika Mcginnis RN * PsychosocialQuestionAnswerDate of AssessmentAuthorPatient Behaviors/Mood Smieiur3204/27/2025 7:00 PM Shanika Mcginnis, RNFamily/Visitor BehaviorsCalm 04/27/2025 7:00 PM Shanika Mcginnis RNNeeds RezwjjrajQanols02/21/2025 7:00 PM Shanika Mcginnis, RNPsychosocial (WDL)X106/28/2024 7:00 PM Shanika Mcginnis RN Person/Family JwfexlebsjFozyve02/21/2025 7:00 PM Shanika Mcginnis RNAbility to Express FeelingsAble to hllebrp5504/27/2025 7:00 PM Shanika Mcginnis RNAbility to Express NeedsAble to spemvho1704/27/2025 7:00 PM Shanika Mcginnis RNAbility to Express ThoughtsAble to qlyoisy2704/27/2025 7:00 PM Shanika Mcginnis RNTime of OetoeianceDbuoehq13/21/2025 7:00 PM Shanika Mcginnis RNAbility to Understand LtuykjThxqlhkqwtj62/21/2025 7:00 PM Shanika Mcginnis RN * [place] Fall RiskQuestionAnswerDate of AssessmentAuthorHistory of Falling0 04/27/2025 7:00 PM Shanika Mcginnis RNSecondary Nhjvgpxdl1067/21/2025 7:00 PM Shanika Mcginnis RNAmbulatory Pfsa40406/28/2024 7:00 PM Shanika Mcginnis RN Intravenous Therapy/Heparin/Saline Owsv440706/28/2024 7:00 PM Shanika Mcginnis RNGait/Bgxdfaxuzvtq480/21/2025 7:00 PM Shanika Mcginnis RNMental Status0 04/27/2025 7:00 PM Shanika Mcginnis, GMYwwnp9775/21/2025 7:00 PM Shanika Mcginnis, KLEVER * Arvind ScaleQuestionAnswerDate of AssessmentAuthorSensory Perceptions4 04/27/2025 7:00 PM Shanika Mcginnis RNMoisture4106/28/2024 7:00 PM Shanika Mcginnis, YGKlywyqdb807/21/2025 7:00 PM Shanika Mcginnis RNMobility4106/28/2024 7:00 PM Shanika Mcginnis RNNutrition4106/28/2024 7:00 PM Shanika Mcginnis, KLEVER Friction and Aitcl65306/28/2024 7:00 PM Shanika Mcginnis RNBraden Scale Score21 04/27/2025 7:00 PM Shanika Mcginnis, KLEVER * Pain Intervention(s)AnswerDate of AssessmentAuthorMedication (See MAR) 04/27/2025 4:03 PM Jemima Zambrano RN * RespiratoryQuestionAnswerDate of AssessmentAuthorBilateral Breath SoundsClear 04/27/2025 7:00 PM Shanika Mcginnis RNR Breath KstqqpCvyoq57/21/2025 7:00 PM Shanika Mcginnis RNL Breath SirtytFvmcu40/21/2025 7:00 PM Shanika Mcginnis RN Respiratory UotjxjuLgnvhmk38/21/2025 7:00 PM Shanika Mcginnis RNChest AssessmentChest expansion alfwqrstwug84/21/2025 7:00 PM Shanika Mcginnis RN CoughProductive;Mgioobcccm51/21/2025 7:00 PM Shanika Mcginnis RNRespiratory (WDL)X106/28/2024 7:00 PM Shanika Mcginnis RNRespiratory Additional Assessments No04/27/2025 6:00 AM Kenia Barton RN * Cough DescriptionQuestionAnswerDate of AssessmentAuthorSputum AmountUnable to jmpipn5704/27/2025 7:00 PM Shanika Mcginnis RNSputum XvvgxOotpmy87/21/2025 7:00 PM Shanika Mcginnis RNSputum SashfioxpwwKgzbz83/21/2025 7:00 PM Shanika Mcginnis RN * Values/BeliefsQuestionAnswerDate of AssessmentAuthorCultural Requests During Axpbzgqojlhzfjhdupr95/21/2025 12:27 AM Kenia Barton RNSpiritual Requests During Frycrrlqhugdklkxryx33/21/2025 12:27 AM Kenia Barton RN * GenitourinaryQuestionAnswerDate of BanftwnafmPuodvoHqmbb14784/21/2025 7:00 AM Kaleigh Mora RNGenitourinary (WDL)WDL106/28/2024 7:00 PM Shanika Mcginnis RN * NeurologicalQuestionAnswerDate of AssessmentAuthorNeuro ([facility])WD06/28/2024 7:00 PM Shanika Mcginnis RN * Abuse Indicator ScreeningQuestionAnswerDate of AssessmentAuthorSafe in HomeYes 04/27/2025 12:27 AM Kenia Barton RNDo you feel safe in your relationship(s)?Yes04/27/2025 12:27 AM Kenia Barton RNAre you in immediate danger?No04/27/2025 12:27 AM Kenia Barton RN * Safe EnvironmentQuestionAnswerDate of AssessmentAuthorHourly RoundingYes 04/27/2025 11:00 PM Shanika Mcginnis RNArm Bands OnID04/27/2025 7:00 PM Shanika Bearden RNCall Perez Within QrhnaTjp19/21/2025 7:00 PM Shanika Mcginnis RNOverbed Table Within UqdkwZef64/21/2025 7:00 PM Shanika Mcginnis RNBed In Lowest TsbrnhwjIzt10/21/2025 7:00 PM Shanika Mcginnis RNBed Wheels LockedYes 04/27/2025 7:00 PM Shanika Mcginnis RNSide Rails/Bed Safety 7:00 PM Shanika Mcginnis RNNonSkid FootwearOff;Patient in bed04/27/2025 7:00 PM Shanika Bearden RNBed/Chair Alarm OnOther (comment)04/27/2025 7:00 PM Shanika Mcginnis RN * Hygiene and AssistanceQuestionAnswerDate of AssessmentAuthorHygienePeri care;Linen ceaiqmx3204/27/2025 5:10 AM Kenia Barton RN * PrecautionsQuestionAnswerDate of UcjwbdqzsxRugnhpSqbaodyvxqvIzbt27/21/2025 7:00 PM Shanika Mcginnis RN * Provider CommunicationQuestionAnswerDate of AssessmentAuthorProvider Role Fijdilei90/21/2025 8:17 PM Shanika Mcginnis RNProvileon NameDr [facility] 04/27/2025 8:17 PM Shanika Mcginnis RNMethod of AawtkrwicgfibMzpk87/21/2025 8:17 PM Shanika Mcginnis RNResponseEn route04/27/2025 8:17 [...] * RN: Observer/Environment EvaluationQuestionAnswerDate of AssessmentAuthor ObserverNot igqsqcjlp62/21/2025 7:00 PM Shanika Mcginnis RN * Blood Specimen Collection StatusQuestionAnswerDate of AssessmentAuthorBlood Specimen OomhexegouGsm00/21/2025 6:06 AM Megan Carmona, * Pain AssessmentQuestionAnswerDate of AssessmentAuthorPain LocationAbdomen 04/27/2025 5:00 AM Kenia Barton RNPain XpsssufvivgAhfnz65/21/2025 5:00 AM Kenia Barton RNPain CuyiojpdsjtLzbppbly70/21/2025 3:26 PM Kaleigh Mora RNPain DurationConstant/btekxrruzf40/21/2025 3:26 PM Kaleigh Byers RNPatient's Stated Acceptable Pain LevelNo pain04/27/2025 5:00 AM Kenia Barton RNPain AssessmentNo/denies pain04/27/2025 10:00 PM Shanika Mcginnis RNPain Vhtqc23906/28/2024 10:00 PM Shanika Mcginnis RN * NutritionQuestionAnswerDate of AssessmentAuthorCurrent Diet TypeOB Regular Gzgnyds6304/27/2025 7:00 PM Shanika Mcginnis, TUOhgyuisoKavx84/21/2025 7:00 PM Shanika Mcginnis RNRoom ServiceAppropriate for room jbnhahr6004/27/2025 7:00 PM Shanika Mcginnis RN * IntegumentaryQuestionAnswerDate of AssessmentAuthorIntegumentary (WDL)WDL 04/27/2025 7:00 PM Shanika Mcginnis RN * Fall Risk ScaleQuestionAnswerDate of AssessmentAuthorFall Risk ScaleMorse Fall Risk Scale04/27/2025 7:00 PM Shanika Mcginnis RN * Tattoos/PiercingsQuestionAnswerDate of AssessmentAuthorDoes patient have tattoos?Yes04/27/2025 7:00 PM Shanika Mcginnis RN * [place] Suicide BehaviorQuestionAnswerDate of AssessmentAuthor6. Have you ever [...] 04/27/2025 8:17 PM Shanika Mcginnis RN * [place] Suicide Risk LevelAnswerDate of AssessmentAuthorNot at Suicide Risk 04/27/2025 12:21 AM Kenia Barton RN * ADL/Functional/CognitiveQuestionAnswerDate of AssessmentAuthorPatient's Vision Adequate to Safely Complete Daily VccfjabkleRm60/21/2025 1:17 AM Kenia Rankin RNPatidick's Judgement Adequate to Safely Complete Daily NomftyshpzBqd65/21/2025 1:17 AM Kenia Barton RNHearing - Right Ear Xuekzvnlqd21/21/2025 1:17 AM Kenia Barton RNHearing - Left Ear Sfixlwdynq27/21/2025 1:17 AM Kenia Barton RNAre you deaf [...] * Crib/Car Seat AvailabilityQuestionAnswerDate of AssessmentAuthorCar Seat UvpktqwmqFwu23/21/2025 12:30 AM Kenia Barton RNCrib Available at Home for HznwykCfy78/21/2025 12:30 AM Kenia Barton RN * ActivityQuestionAnswerDate of AssessmentAuthorActivity PerformedResting in bed 04/27/2025 7:00 AM Kaleigh Mora RNActivity ResponseTolerated well 04/27/2025 7:00 AM Kaleigh Mora RNRange of MotionActive;All extremities 04/27/2025 7:00 AM Kaleigh Mora RNToileting AssistanceAmbulate to szgncmqi49/21/2025 7:00 AM Kaleigh Mora RNRepositionedTurns self 04/27/2025 7:00 AM Kaleigh Mora RNTransport ZdcsjhSjialnprvd87/21/2025 7:00 AM Kaleigh Mora RNBed PositionSelf kitpegmqc72/21/2025 7:00 AM Kaleigh Byers RN * Uterine ActivityQuestionAnswerDate of AssessmentAuthorResting ToneSoft 04/27/2025 11:00 PM Shanika Mcginnis RNDurationna04/27/2025 11:00 PM Shanika Mcginnis RNCtx per 10 qhns87506/28/2024 11:00 PM Shanika Mcginnis RNMonitorToco 04/27/2025 11:00 PM Shanika Mcginnis RNIntensityNot vxpgwgfely14/21/2025 11:00 PM Shanika Mcginnis RN * Vital SignsQuestionAnswerDate of MhehhbvuixXvrtahMR153/6004/27/2025 7:23 PM Shanika Mcginnis RNTemp98. 9:34 PM Shanika Mcginnis RNTemp srcOral 04/27/2025 9:34 PM Shanika Mcginnis, LVCocwv0165/21/2025 7:23 PM Shanika Mcginnis LGNztd8276/21/2025 7:23 PM Shanika Mcginnis SSLxP19941/21/2025 9:00 AM Kaleigh Mora RNHeart Rate BrpwquDumvdog92/21/2025 3:26 PM Kaleigh Mora RNBP LocationLeft arm04/27/2025 3:26 PM Kaleigh Mora RNBP Method Ltilktdnk88/21/2025 3:26 PM Kaleigh Mora RNMAP (mmHg)80106/28/2024 3:26 PM Kaleigh Mora RNIs this an Orthostatic BP?No04/27/2025 3:26 PM Kaleigh Mora RNPatient FshegwroWmwjxkd75/21/2025 3:26 PM Kaleigh Mora RN * Safe EnvironmentQuestionAnswerDate of AssessmentAuthorCall Perez Within Reach Yes04/27/2025 7:00 PM Shanika Mcginnis RNBed In Lowest AzdlhaicTyu22/21/2025 7:00 PM Shanika Mcginnis RNBed Wheels ZerpbkYtc28/21/2025 7:00 PM Shanika Mcginnis RN * ADL/Functional/CognitiveQuestionAnswerDate of AssessmentAuthorPjovanny's Vision Adequate to Safely Complete Daily ZpiakuijgkKv00/21/2025 1:17 AM Kenia Rankin RNPatient's Judgement Adequate to Safely Complete Daily NondhnaihcKga09/21/2025 1:17 AM Kenia Barton RNHearing - Right Ear Fipfgbxjxr17/21/2025 1:17 AM Kenia Barton RNHearing - Left Ear Plfffnbbud36/21/2025 1:17 AM Kenia Barton RNAre you deaf [...] PM Shanika Mcginnis RN * ActivityQuestionAnswerEntry DateAuthorTransport AvzccmLgmsrxtonx59/21/2025 7:00 AM Kaleigh Mora RN * Vital SignsQuestionAnswerEntry XmhsVawbhqHZ253/6004/27/2025 7:23 PM Shanika Mcginnis RNTemp98. 9:34 PM Shanika Mcginnis RNTemp xilFbcy0204/27/2025 9:34 PM Shanika Mcginnis CTVfpto8760/21/2025 7:23 PM Shanika Mcginnis SMKnxg54 04/27/2025 7:23 PM Shanika Mcginnis VYFtO34481/21/2025 9:00 AM Kaleigh Mora RNBP cuff sizeAdult (25-34cm)04/27/2025 9:00 AM Kaleigh Mora RN O2 DeviceNone (Room air)04/27/2025 7:23 PM Shanika Mcginnis RNHeart Rate FubhynLzymzlh89/21/2025 3:26 PM Kaleigh Mora RNBP LocationLeft arm 04/27/2025 3:26 PM Kaleigh Mora RNBP PqddodYeercwrja91/21/2025 3:26 PM Kaleigh Mora RNMAP (mmHg)80106/28/2024 3:26 PM Kaleigh Mora RNIs this an Orthostatic BP?No04/27/2025 3:26 PM Kaleigh Mora RNPatient Position Rntrozt9704/27/2025 3:26 PM Kaleigh Mora RN * Oxygen TherapyQuestionAnswerEntry DateAuthorPulse Oximetry Type Continuous;Qzujtavsti17/21/2025 9:00 AM Kaleigh Mora RN * Pain 2QuestionAnswerEntry DateAuthorObserved KzagstryUzzl66/21/2025 3:26 PM Kaleigh Mora RN * GastrointestinalQuestionAnswerEntry DateAuthorGastrointestinal (WDL)WDL 04/27/2025 7:00 PM Shanika Mcginnis RNGastrointestinal Additional Assessments No04/27/2025 7:00 AM Kaleigh Mora RN * MusculoskeletalQuestionAnswerEntry DateAuthorMusculoskeletal (WDL)WDL 04/27/2025 7:00 PM Shanika Mcginnis RN * GenitaliaQuestionAnswerEntry DateAuthorFemale GenitaliaIntact;Discharge 04/27/2025 7:00 PM Shanika Mcginnis RN * Anus/RectumQuestionAnswerEntry DateAuthorAnus/Rectum (WDL)WDL106/28/2024 7:00 PM Shanika Mcginnis RN * PsychosocialQuestionAnswerEntry DateAuthorPatient Behaviors/MoodAnxious 04/27/2025 7:00 PM Shanika Mcginnis RNFamily/Visitor PgregrtewZvwd51/21/2025 7:00 PM Shanika Mcginnis RNNeeds QyxukmbgsRsouze06/21/2025 7:00 PM Shanika Mcginnis RNPsychosocial (WDL)X106/28/2024 7:00 PM Shanika Mcginnis RN Person/Family PsdoihmmksQpqjdo96/21/2025 7:00 PM Shanika Mcginnis RNAbilyash to Express FeelingsAble to ibryder5104/27/2025 7:00 PM Shanika Mcginnis RNAbility to Express NeedsAble to tyzisxh6304/27/2025 7:00 PM Shanika Mcginnis RNAbility to Express ThoughtsAble to niamolz1004/27/2025 7:00 PM Shanika Mcginnis RNTime of GezpbzfiqdLtjtlsm55/21/2025 7:00 PM ESTLong, Shanika, RNAbility to Understand BvxuirHiotgskhtfv53/21/2025 7:00 PM Shanika Mcginnis RN * Arvind ScaleQuestionAnswerEntry DateAuthorSensory Zjpdlomiyjp552/21/2025 7:00 PM Shanika Mcginnis, UWGwelqntt438/21/2025 7:00 PM Shanika Mcginnis, RNActivity2 04/27/2025 7:00 PM Shanika Mcginnis, XMBllvpbnl014/21/2025 7:00 PM Shanika Mcginnis, LQScuezsdxg222/21/2025 7:00 PM Shanika Mcginnis, RNFriction and Shear3 04/27/2025 7:00 PM Shanika Mcginnis RNBraden Scale Xgfxm239204/27/2025 7:00 PM Shanika Mcginnis RN * Pain Intervention(s)AnswerEntry DateAuthorMedication (See MAR)04/27/2025 4:03 PM Jemima Zambrano RN * RespiratoryQuestionAnswerEntry DateAuthorBilateral Breath SoundsClear 04/27/2025 7:00 PM Shanika Mcginnis RNR Breath HvylvpCyazp35/21/2025 7:00 PM Shanika Mcginnis RNL Breath EhqiamCkcdv37/21/2025 7:00 PM Shanika Mcginnis RN Respiratory RfvnfiwRezowzg78/21/2025 7:00 PM Shanika Mcginnis RNChest AssessmentChest expansion cxyaplmslmn18/21/2025 7:00 PM Shanika Mcginnis RN CoughProductive;Nbmqnfiwwg73/21/2025 7:00 PM Shanika Mcginnis RNRespiratory (WDL)X106/28/2024 7:00 PM Shanika Mcginnis RNRespiratory Additional Assessments No04/27/2025 6:00 AM Kenia Barton RN * Cough DescriptionQuestionAnswerEntry DateAuthorSputum AmountUnable to assess 04/27/2025 7:00 PM Shanika Mcginnis RNSputum HzlkuKazofo62/21/2025 7:00 PM Shanika Bearden RNSputum HavfxyzeepmFfplf89/21/2025 7:00 PM Shanika Mcginnis RN * GenitourinaryQuestionAnswerEntry NdvyPniirgUwcmf50154/21/2025 7:00 AM Kaleigh Mora RNGenitourinary (WDL)WD06/28/2024 7:00 PM Shanika Mcginnis RN * NeurologicalQuestionAnswerEntry DateAuthorNeuro (WDL)[facility]06/28/2024 7:00 PM Shanika Bearden RN * Provider CommunicationQuestionAnswerEntry DateAuthorProvider RoleResident 04/27/2025 8:17 PM Shanika Mcginnis RNProvider NameDr Uueaaqfw33/21/2025 8:17 PM Shanika Mcginnis RNMethod of PwpnbsulwulhfOtjb66/21/2025 8:17 PM Shanika Mcginnis RNResponseEn route04/27/2025 8:17 PM Shanika Mcginnis RN * RN: Observer/Environment EvaluationQuestionAnswerEntry DateAuthorObserverNot dovlkccce24/21/2025 7:00 PM Shanika Mcginnis RN * Pain AssessmentQuestionAnswerEntry DateAuthorPain MhyopzsfCpaxotk30/21/2025 5:00 AM Kenia Barton, Misael WwzrmbxvfcvYqnwf41/21/2025 5:00 AM Kenia Rankin RNPain NmqxhbtlmhpAtukyjbm92/21/2025 3:26 PM Kaleigh Mora RNPain DurationConstant/qrembkepwq45/21/2025 3:26 PM Kaleigh Mora RNPatient's Stated Acceptable Pain LevelNo pain04/27/2025 5:00 AM Kenia Rankin RNPain AssessmentNo/denies pain04/27/2025 10:00 PM Shanika Bearden RNPain Dkwhm32106/28/2024 10:00 PM Shanika Mcginnis RN * IntegumentaryQuestionAnswerEntry DateAuthorIntegumentary (WDL)[facility]06/28/2024 7:00 PM Shanika Mcginnis RN * Tattoos/PiercingsQuestionAnswerEntry DateAuthorDoes patient have tattoos?Yes 04/27/2025 7:00 PM Shanika Mcginnis RN documented in this encounter Medications at Time of Discharge MedicationSigDispense QuantityRefillsLast FilledStart DateEnd Date Bacillus coagulans (BACID WITH LACTOSPORE) 1 billion [...] TABLET BY MOUTH EVERY MORNING 30 tablet AHQS-kumrmszh-daxvhcvrnhh xt 100-100-225 mg capsule Take 1 capsule [...] by mouth in the morning. 30 capsule 449-ybox-roknhz 6-dha 27 mg iron-1 mg -205 mg [...] (eight) hours for 18 doses. 18 capsule erythromycin (E-MYCIN) 250 mg tablet,delayed release (DR/EC) Indications: premature rupture of membranes in third trimester, unspecified duration to onset of laborTake 1 tablet (250 mg total) by mouth every 8 (eight) hours for 18 doses. 18 tablet documented as of this encounter Progress [...] ordered Dr Nesbitt updated Gaby Truong MD Bellows Assembler Resident, PGY-4 Cosigned by Mary Nesbitt MD [...] 28w3d who presents as a Transport from [facility] with concern for possible PPROM. [...] noted. She denies anyrecent intercourse While at [facility], an exam was performed and an amniosure sent which was positive. She wasstarted on Magnesium sulfate for neuroprotection, ampicillin and corticosteroids then transferred to [facility] for further evaluation and management complicated by: [...] predominantly hyperactive type 03/20/2017 Bipolar 1 disorder (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 They have a bmpw-poju-efy daughter that has a mild form (Clemens [...] viral load undetected History of heroin abuse ([facility]) 03/17/2024 03/17/2024: Patient states she has been [...] Interpersonal Safety: Low Risk (03/18/2025) Received from [facility] Intimate Partner Violence Safe in relationship? [...] 120bpm, moderate variability, present acceleration, absent decelerations [place]: none Labs No results found for this [...] 28w3d who presents as a transport from [facility] for PPROM in setting of [...] ordered - MFM consulted, appreciate recommendations. [facility] US ordered - Baby B FHT reactive and reassuring 2. Possible URI - RPP ordered 3. History of Hep C - Hep C quant ordered - AST/ALT wnl 4. Routine antepartum care - [facility] US 04/14: Baby A: multiple anomalies. Baby B: EFW 1059g (63%), AC 23cm (62%), DVP 5.5cm,ceph, post pl - NPO - cEFM Pt discussed with Dr. 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 They have a mmvj-ediz-gvf daughter that has a mild form (Clemens [...] viral load undetected History of heroin abuse ([facility]) 03/17/2024 03/17/2024: Patient states she [...] the premature infant, as well asthe associated terminal gauger supervisor complications of each. They are aware that the may need antibiotics, and other medical consults as deemed necessary while in the NICU. NICU family participation, Levon Doc/SLURRY CONTROL TENDER daily rounding procedures, the availability of the 7th grade social studies teacher and the availability of [facility] were all explained. The NICU visitation policy [...] Delivery: 07/16/25 Presented as a Transport from [facility] with concern for possible PPROM. Patient states shefirst started noting possible leakage yesterday morning. While at [facility], an exam was performed and an amniosure sent which was positive. She wasstarted on Magnesium sulfate for neuroprotection, ampicillin and corticosteroids then transferred to [facility] for further evaluation and management. This morning she denies any fevers/chills, nausea/vomiting or diarrhea. She reports movement of Baby B with no contractions or vaginal bleeding noted. She denies any recent intercourse Complications: s/p multifetal reduction of Twin A at [facility] at 23w5d on 03/24/25 - genetic [...] family also underwent a consultation at the [facility] therapy Center Rh negative sp rhogam 03/25/25 Advanced maternal age with low risk cell free DNA testing. Both parents carrier for galactosemia. One of the daughters does have galactosemia trait and has required nutritional support. Patient was established with [facility] metabolic disorder howeverthe physician has retired. [...] MOUTH EVERY MORNING 30 tablet 6 04/26/2025 444-gjtc-pghffm 6-dha 27 mg iron-1 mg -205 mg [...] remove for 1 week. 1 each 11 XSEJ-ioqtiusd-auoewjruvoo xt 100-100-225 mg capsule Take 1 capsule [...] predominantly hyperactive type 03/20/2017 Bipolar 1 disorder ([facility]) Bipolar disorder (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 They have a ebpv-xtrd-com daughter that has a mild form (Clemens [...] viral load undetected History of heroin abuse ([facility]) 03/17/2024 03/17/2024: Patient states she has been [...] 05/03/2016 Performed by Kim Bhatia MD at [facility] SURGERY WISDOM TOOTH EXTRACTION MEDS Current [...] intravenous Continuous PRN Gaby Truong MD PNV,calcium 56-degc-vwbtp acid ( PLUS) 27 mg iron- 1 [...] GTT: No results found for: GLUF , OHAERBI9BF , QUIMRTI9DY , CFWYXCG3YF Physical Exam Vitals and nursing note reviewed. [...] s/p multifetal reduction of Twin A at [facility] at 23w5d on 03/24/25 Reviewed with [...] Charlene Lees MD, FACOG (she/hers) Maternal- Medicine [facility] [address] [place] [address] This document was created with [employer] technology. Though I make every effort to review the dictation as it is transcribed, on occasion the spoken word can be misinterpreted by the technology leading to inappropriate words, phrases, or sentences. This note is addressed to the requesting provider as a consultation for clinical guidance. Specificmedical abbreviations are occasionally used and those are generally approved by the [place]?Board of?Obstetrics and?Gynecology?as well as?[place]???s abbreviations. The above plan of care was based solely on the diagnoses for which a consultation was requested. ?More frequent testing may be indicated based on her other medical/obstetrical conditions. The management of other or medical conditions is beyond the scope of requested consultation and will c ontinue to be followed by the primary wind technician or primary care provider. Note to patient: [...] AM EST Patient expressing desire to leave [place] due to childcare and social issues at [...] mother. Patient expressed interest in going to [facility] with her kids. RN called social work, who said that unless there's a sibling admitted to the hospital, children are not allowed to stay at [facility]. Social work to come speak [...] Description: INTERVENTIONS: 1. Encourage patient or legal mill representative to report early pain and ask [...] per policy 9. Teach patient or legal mill representative interventions for comforting Outcome: Progressing Note: [...] at the bedside 7. Instruct patient/ patient mill representative about use of safety devices 8. Include patient/ patient mill representative in decisions related to safety Outcome: [...] hygiene technique. 7. Identify and instruct patient/patient mill representative in use of appropriate isolation precautionsfor identified infection/symptoms. 8. Provide and discuss with patient/patient mill representative on educational MDRO sheet. 9. Encourage and monitor nutritional status daily and consult relations manager if indicated. 10. Implement neutropenic guidelines as needed. Outcome: Progressing Note: Evaluation of progress towards goal: Patient is free from signs and symptoms of infection. Problem: Knowledge Deficit Goal: Patient/patient mill representative demonstrates understanding of disease process, treatment [...] on patient's door 9. Provide patient/ patient mill representative with isolation education. Outcome: Progressing Note: Evaluation of progress towards goal: Patient is free from signs and symptoms of infection. Problem: Moderate - High Risk Fall Score Description: Gus Wade Score of =/> 25 or indicated by [facility] Assessment Goal: Patient should be free from fall Description: Interventions: 1. [place] to environment 2. Hourly rounds addressing the [...] non-skid footwear 11. Teach patient and patient mill representative to maintain environment for safety and [...] (cane, walker) within reach 19. Request patient mill representative bring adaptive equipment/mobility aids from home or obtain and provide as needed 20. Consult pharmacy regarding effects of med's affecting mobility, cognition, and alternatives 21. Obtain physician order for PT if risk factors associated with mobility are present 22. Obtain physician order for OT as appropriate 23. Utilize diversional activities 24. Educate patient and patient mill representative how to maintain a safe environment during visitationtimes (notify nurse prior to leaving bedside) 25. Consider appropriateness of medical or non-medical transcription radiology 26. Set up voiding schedule as appropriate [...] abruption. AMA paperwork signed. Luis Kuhn MD Bellows Assembler Resident, PGY-4 * Discharge Planning Note - [facility] [place] - 04/27/2025 1:35 PM EST DISCHARGE PLANNING NOTE SOCIAL WORK NOTE SW consult for 34 y.o. at 28w4d gestation. Chart reviewed and case discussed with KLEVER Farris. Twin with reduction of twin A at 23w. Transfer from [facility] and found to have PROM [...] there with her children until delivery. Per assistant administrator convex grinder operator, pt could stay at [facility] with her children if there was another supportive adult present at all times. SW met with patient at bedside, introduced self and explained role. Discussed pt situation and options. Pt states [facility] is not an option because she does not have a supportive adult that is available to stay with her. Pt states FOB is helpful with her 1 y.o. and 7 y.o. and they typically stay with him 2 days per week. He does work 5 days / week, which would make it difficult for him to provide inspector timers care while pt is admitted. Pt utilizes [...] Description: INTERVENTIONS: 1. Encourage patient or legal mill representative to report early pain and ask [...] per policy 9. Teach patient or legal mill representative interventions for comforting Outcome: Progressing Note: [...] at the bedside 7. Instruct patient/ patient mill representative about use of safety devices 8. Include patient/ patient mill representative in decisions related to safety Outcome: [...] hygiene technique. 7. Identify and instruct patient/patient mill representative in use of appropriate isolation precautionsfor identified infection/symptoms. 8. Provide and discuss with patient/patient mill representative on educational MDRO sheet. 9. Encourage and monitor nutritional status daily and consult relations manager if indicated. 10. Implement neutropenic guidelines as needed. Outcome: Progressing Note: Evaluation of progress towards goal: Patient receiving antibiotics to treat any possible infection. No fever or other signs of infection at this time. Problem: Knowledge Deficit Goal: Patient/patient mill representative demonstrates understanding of disease process, treatment [...] on patient's door 9. Provide patient/ patient mill representative with isolation education. Outcome: Progressing Note: Evaluation of progress towards goal: Will use standard protocols to prevent transmission of infection. Problem: Moderate - High Risk Fall Score Description: Gus Wade Score of =/> 25 or indicated by [facility] Assessment Goal: Patient should be free from fall Description: Interventions: 1. [place] to environment 2. Hourly rounds addressing the [...] non-skid footwear 11. Teach patient and patient mill representative to maintain environment for safety and [...] (cane, walker) within reach 19. Request patient mill representative bring adaptive equipment/mobility aids from home or obtain and provide as needed 20. Consult pharmacy regarding effects of med's affecting mobility, cognition, and alternatives 21. Obtain physician order for PT if risk factors associated with mobility are present 22. Obtain physician order for OT as appropriate 23. Utilize diversional activities 24. Educate patient and patient mill representative how to maintain a safe environment during visitationtimes (notify nurse prior to leaving bedside) 25. Consider appropriateness of medical or non-medical transcription radiology 26. Set up voiding schedule as appropriate [...] Description: INTERVENTIONS: 1. Encourage patient or legal mill representative to report early pain and ask [...] per policy 9. Teach patient or legal mill representative interventions for comforting Outcome: Progressing Note: [...] at the bedside 7. Instruct patient/ patient mill representative about use of safety devices 8. Include patient/ patient mill representative in decisions related to safety Outcome: [...] hygiene technique. 7. Identify and instruct patient/patient mill representative in use of appropriate isolation precautionsfor identified infection/symptoms. 8. Provide and discuss with patient/patient mill representative on educational MDRO sheet. 9. Encourage and monitor nutritional status daily and consult relations manager if indicated. 10. Implement neutropenic guidelines as needed. Outcome: Progressing Note: Evaluation of progress towards goal: Handwashing enforced to prevent infection. Problem: Knowledge Deficit Goal: Patient/patient mill representative demonstrates understanding of disease process, treatment [...] on patient's door 9. Provide patient/ patient mill representative with isolation education. Outcome: Progressing Note: Evaluation of progress towards goal: infection prevention Additional Comments: documented in this encounter Plan of Treatment DateTypeDepartmentCare Team (Latest Contact Info)Oyhjvolkbjp52/08/2026 8:30 AM ESTAppointment [facility] - [facility] Imaging [address] [place] [phone] 05/15/2025 9:30 AM ESTInitial [facility] [address] [place] [phone] Florecita Bergeron MD [address] [place] [phone] 05/15/2025 11:00 AM ESTOffice Visit Maternal- Medicine at [facility] [address] [place] [phone] Charlene Lees MD [address] [address] 11/04/2025 4:00 PM EDTOffice Visit [facility] [address] [place] [phone] Rebecca Rizvi, [facility] [address] [place] [phone] documented as of this encounter Procedures Procedure NamePriorityDate/TimeAssociated DiagnosisCommentsURINALYSISRoutine 04/27/2025 7:56 AM EST LACTATE W/ FJPORRDWPZ34/21/2025 6:25 AM EST CBC WITH AUTO GYSVNYZCPHQWBQUD72/21/2025 6:25 AM EST BLOOD TWGALJKYIUM44/21/2025 6:25 AM EST BLOOD XGIOVZSBEJY85/21/2025 6:25 AM EST COMPREHENSIVE METABOLIC YCHUCYQWD50/21/2025 6:25 AM EST EXTRA TUBES BLUE NSYUawvnoe22/21/2025 6:24 AM EST EXTRA FPUNAKoecocy09/21/2025 6:24 AM EST MOLECULAR VAGINITIS PANEL SRBHsragbq05/21/2025 2:20 AM EST CHLAMYDIA/GC BY PCR NORBERTO RMBMQnejqat57/21/2025 2:20 AM EST RESP PATHOGENS PANEL/JLIG-TQU-3Axavvwg50/21/2025 2:20 AM EST STREP B OGQXHXZugixeo58/21/2025 2:20 AM EST RUPTURE OF MEMBRANE (ALL)Jgpelrx2904/27/2025 1:43 AM EST HEPATITIS C VIRUS QUANTITATIVE BY NAATAdd-On04/27/2025 12:13 AM EST SYPHILIS TOTAL(UNKNOWN SYPHILIS STATUS)STAT106/28/2024 12:13 AM EST ANTIBODY HHLudibsa53/21/2025 12:13 AM EST CBC WITH AUTO YZPOUAHJGYEGKEEY13/21/2025 12:13 AM EST TYPE AND VDUONYSMLN05/21/2025 12:13 AM EST COMPREHENSIVE METABOLIC DEMSPDRUA67/21/2025 12:13 AM EST EXTRA TUBES PST VLCUvnojav40/21/2025 12:08 AM EST EXTRA TUBES BLUE VLMWuhyexh87/21/2025 12:08 AM EST EXTRA QGQATBxojiro04/21/2025 12:08 AM EST documented in this encounter Results * (ABNORMAL) Urinalysis (04/27/2025 7:56 AM EST)ComponentValueRef RangeTest MethodAnalysis TimePerformed AtPathologist SignatureCOLORYellowYellow 04/27/2025 8:41 AM [facility] LABORATORYTURBIDITYClearClear 04/27/2025 8:41 AM [facility] LABORATORYSPECIFIC GRAVITY1.023 1.003 - 1.8424304/27/2025 8:41 AM [facility] LABORATORYNITRITE QegjszygKmugdwqh72/21/2025 8:41 AM [facility] PH,URINE6.55.0 - 8.512 8:41 AM [facility] LEUKOCYTE EQPFWDEHCpsnadciAwahljfy44/21/2025 8:41 AM [facility] LABORATORYPROTEINTrace(A)Ffwkebtl35/21/2025 8:41 AM [facility] LABORATORYKETONES (URINE)10 mg/dL(A)Kjtnvgrk03/21/2025 8:41 AM [facility] LABORATORYUROBILINOGEN<1.1 eu/dL<1.1 eu/dL04/27/2025 8:41 AM [facility] LABORATORYBILIRUBIN (URINE)Negative Imzgdqlm47/21/2025 8:41 AM [facility] LABORATORYBLOOD/HGB XifedhxcPqwyrmsn39/21/2025 8:41 AM [facility] MUCOUSPresent(A)None04/27/2025 8:41 AM [facility] R.B.CELLS10 - 512 8:41 AM [facility] SQUAMOUS KXWCHXOYNQ57 - 8:41 AM [facility] LABORATORYW.B.CELLS10 - 8:41 AM [facility] LABORATORYGLUCOSE (URINE)BmkehugwKkvdfwgo69/21/2025 8:41 AM [facility] LABORATORYSpecimen (Source)Anatomical Location / LateralityCollection Method / VolumeCollection TimeReceived TimeUrineUrine / Iitbeeo4204/27/2025 7:56 AM EST04/27/2025 8:24 AM EST Narrative Authorizing ProviderResult TypeResult Yamila QUINTEROS ORDERABLES Final ResultPerforming OrganizationAddressCity/State/ZIP CodePhone Number [facility] [address] [place] [address], * Blood culture #2 (04/27/2025 6:25 AM EST)ComponentValueRef RangeTest Method Analysis TimePerformed AtPathologist SignatureCULTURE RESULTSNO GROWTH 5 DAYS 05/02/2025 10:01 AM [facility] LABORATORYSpecimen (Source) Anatomical Location / LateralityCollection Method / VolumeCollection Time Received TimeBloodVenous blood / UnknownVenipuncture / Ooyjxra9004/27/2025 6:25 AM EST04/27/2025 9:31 AM EST Narrative [facility] - 05/02/2025 10:01 AM EST Suboptimal volume of blood collected, Results may be affected. Authorizing ProviderResult TypeResult Yamila LOCKEICROBIOLOGY - GENERAL ORDERABLESFinal ResultPerforming OrganizationAddressCity/State/ZIP Code Phone Number [facility] [address] [place] [address], * Blood culture #1 (04/27/2025 6:25 AM EST)ComponentValueRef RangeTest Method Analysis TimePerformed AtPathologist SignatureCULTURE RESULTSNO GROWTH 5 DAYS 05/02/2025 10:01 AM [facility] LABORATORYSpecimen (Source) Anatomical Location / LateralityCollection Method / VolumeCollection Time Received TimeBloodVenous blood / UnknownVenipuncture / Xcrquvp6604/27/2025 6:25 AM EST04/27/2025 9:31 AM EST Narrative [facility] - 05/02/2025 10:01 AM EST Suboptimal volume of blood collected, Results may be affected. Authorizing ProviderResult TypeResult StatusGaby SIERRAROBIOLOGY - GENERAL ORDERABLESFinal ResultPerforming OrganizationAddressCity/State/ZIP Code Phone Number [facility] [address] [place] [address], * Lactate w/ Reflex (04/27/2025 6:25 AM EST)ComponentValueRef RangeTest Method Analysis TimePerformed AtPathologist SignatureLACTATE W/REFLEX1.00.4 - 2.0 mmol/L106/28/2024 7:23 AM [facility] LABORATORYSpecimen (Source)Anatomical Location / LateralityCollection Method / VolumeCollection TimeReceived TimeBloodVenous blood / UnknownVenipuncture / Ooiklzs9404/27/2025 6:25 AM EST04/27/2025 6:41 AM EST Narrative [facility] - 04/27/2025 7:23 AM EST Result did not trigger repeat Lactate, re-order if needed. Authorizing ProviderResult TypeResult StatusTannicdana Truong DCLAB BLOOD ORDERABLESFinal ResultPerforming OrganizationAddressCity/State/ZIP CodePhone Number [facility] [address] [place] [address], * (ABNORMAL) Comprehensive metabolic panel (04/27/2025 6:25 AM EST)Component ValueRef RangeTest MethodAnalysis TimePerformed AtPathologist SignatureSODIUM 004218 - 146 mmol/L106/28/2024 7:18 AM [facility] POTASSIUM3.93.5 - 5.0 mmol/L106/28/2024 7:18 AM [facility] QFJSPFOUOBNPMZCWPT64147 - 109 mmol/L106/28/2024 7:18 AM [facility] LABORATORYCARBON PWOSXLL13(L)22 - 32 mmol/L106/28/2024 7:18 AM [facility] LABORATORYANION GAP85 - 15 mmol/L106/28/2024 7:18 AM [facility] LABORATORYBLOOD UREA BYBJJXSO15 - 23 mg/dL04/27/2025 7:18 AM [facility] LABORATORYCREATININE0.510.40 - 1.00 mg/dL 04/27/2025 7:18 AM [facility] LABORATORYComment:METHOD TRACEABLE TO IDMS VQDGABSTMICEYXB959(H)65 - 99 mg/dL04/27/2025 7:18 AM EST [facility] LABORATORYCALCIUM7.1(L)8.5 - 10.5 mg/dL04/27/2025 7:18 AM [facility] LABORATORYTOTAL PROTEIN6.06.0 - 8.0 g/dL 04/27/2025 7:18 AM [facility] LABORATORYALBUMIN3.23.2 - 5.3 g/dL04/27/2025 7:18 AM [facility] LABORATORYALKALINE QYFXBPJDRUE9416 - 130 U/L106/28/2024 7:18 AM [facility] YXJRPCLTZJCHY23<=41 U/L106/28/2024 7:18 AM [facility] LABORATORYALT4<=31 U/L106/28/2024 7:18 AM [facility] LABORATORYBILIRUBIN,TOTAL0.2(L)0.3 - 1.2 mg/dL04/27/2025 7:18 AM [facility] LABORATORYEGFR Non-Race Dependent>90>=60 ml/min/1.73sq.m 04/27/2025 7:18 AM [facility] LABORATORYComment: Reported eGFR is based on the CKD-EPI 2020 equation that does not use a race coefficient. Specimen (Source)Anatomical Location / LateralityCollection Method / Volume Collection TimeReceived TimeBloodVenous blood / UnknownVenipuncture / Unknown 04/27/2025 6:25 AM EST04/27/2025 6:42 AM EST Narrative Authorizing ProviderResult TypeResult StatusTannice Dionne HUNTER BLOOD ORDERABLESFinal ResultPerforming OrganizationAddressCity/State/ZIP CodePhone Number [facility] [address] [place] [address], * (ABNORMAL) CBC auto differential (04/27/2025 6:25 AM EST)ComponentValueRef RangeTest MethodAnalysis TimePerformed AtPathologist YaqpemspaXAV77.1(H)4 - 11 10^9/L106/28/2024 6:52 AM [facility] LABORATORYRBC Count3.82 3.8 - 5.2 10^12/L1/ 6:52 AM [facility] Fjtoyuunbr35.3(L)11.7 - 15.5 g/dL04/27/2025 6:52 AM [facility] EAXCHICGGWWaqgxdcpuo66.3(L)35 - 47 %04/27/2025 6:52 AM [facility] IINMJYTOQBORL7124 - 100 fL04/27/2025 6:52 AM [facility] KKOWEQUAGBZFS81.627 - 34 pg04/27/2025 6:52 AM [facility] CKYRCYKZUJONSN72.932 - 36 g/dL04/27/2025 6:52 AM [facility] FHYRCERNNTEZN06.611.5 - 15 %04/27/2025 6:52 AM [facility] LABORATORYPlatelet Dqags253764 - 450 10^L106/28/2024 6:52 AM [facility] LABORATORYMPV8.37 - 12 fL04/27/2025 6:52 AM [facility] [place] [facility]ORYNeutrophils %89.5%04/27/2025 6:52 AM [facility] LABORATORYLymphocytes %8.6%04/27/2025 6:52 AM [facility] LABORATORYMonocytes %1.8%04/27/2025 6:52 AM [facility] LABORATORYEosinophils %0.1%04/27/2025 6:52 AM [facility] LABORATORYBasophils %0.0%04/27/2025 6:52 AM [facility] LABORATORYNeutrophils Absolute (A)10.8(H)1.5 - 6.6 10^9/L 04/27/2025 6:52 AM [facility] LABORATORYLymphocytes Absolute 1.01.0 - 3.5 10^9/L106/28/2024 6:52 AM [facility] Monocytes Absolute0.20.0 - 0.9 10^9/L12/ 6:52 AM [facility] LABORATORYEosinophils Absolute0.00.0 - 0.4 10^9/L106/28/2024 6:52 AM EST [facility] LABORATORYBasophils Absolute0.00.0 - 0.2 10^9/L 04/27/2025 6:52 AM [facility] LABORATORYDifferential Type AUTOMATED TOGFWDJKKHVA99/21/2025 6:52 AM [facility] LABORATORYSpecimen (Source)Anatomical Location / LateralityCollection Method / VolumeCollection TimeReceived TimeBloodVenous blood / UnknownVenipuncture / Wmvwpap7904/27/2025 6:25 AM EST04/27/2025 6:42 AM EST Narrative Authorizing ProviderResult TypeResult StatusTannice Dionne [facility] BLOOD ORDERABLESFinal ResultPerforming OrganizationAddressCity/State/ZIP CodePhone Number [facility] [address] [place] [address], * Light Blue Top (04/27/2025 6:24 AM EST)ComponentValueRef RangeTest Method Analysis TimePerformed AtPathologist SignatureExtra TubeAuto Resulted 04/27/2025 8:01 AM [facility] LABORATORYSpecimen (Source) Anatomical Location / LateralityCollection Method / VolumeCollection Time Received TimeBloodVenous blood / Egufyqq4004/27/2025 6:24 AM EST04/27/2025 6:42 AM EST Narrative Authorizing ProviderResult TypeResult StatusDavid Kya Cook [facility] BLOOD ORDERABLESFinal ResultPerforming OrganizationAddressCity/State/ZIP CodePhone Number [facility] [address] [place] [address], [place] [phone] * Strep B screen (04/27/2025 2:20 AM EST)ComponentValueRef RangeTest Method Analysis TimePerformed AtPathologist SignatureCULTURE RESULTSNEGATIVE FOR GROUP B STREPTOCOCCUS BY NUCLEIC ACID MDLAONBJUBHQZ32/22/2025 9:39 AM EST [facility] LABORATORYSpecimen (Source)Anatomical Location / LateralityCollection Method / VolumeCollection TimeReceived TimeSwab (Vagina/Rectum)04/27/2025 2:20 AM EST04/27/2025 3:19 AM EST Narrative Authorizing ProviderResult TypeResult StatusTanLandmark Medical CenterROBIOLOGY - GENERAL ORDERABLESFinal ResultPerforming OrganizationAddressCity/State/ZIP Code Phone Number [facility] [address] [place] [address], * Chlamydia/GC by PCR Norberto Swab (04/27/2025 2:20 AM EST)ComponentValueRef Range Test MethodAnalysis TimePerformed AtPathologist SignatureCHLAMYDIA DNA(PCR) DxclwuroLlyoqnyg07/22/2025 10:39 AM [facility] Comment:Chlamydia trachomatis not detected by nucleic acid amplification. This does not exclude the possibility of infection because results are dependent on adequate specimen collection.GONORRHOEAE DNA(PCR)YspignrcBtixkhsh51/22/2025 10:39 AM [facility] LABORATORYComment:Neisseria gonorrhoeae not detected by nucleic acid amplification. This does not exclude the possibil ity of infection because results are dependent on adequate specimen collection.Specimen (Source)Anatomical Location / LateralityCollection Method / VolumeCollection TimeReceived TimeSwabEndocervical structure / Unknown 04/27/2025 2:20 AM EST04/27/2025 3:19 AM EST Narrative Authorizing ProviderResult TypeResult StatusTanProvidence City HospitalIOLOGY - GENERAL ORDERABLESFinal ResultPerforming OrganizationAddressCity/State/ZIP Code Phone Number [facility] [address] [place] [address], * Molecular Vaginitis Panel PCR (04/27/2025 2:20 AM EST)ComponentValueRef Range Test MethodAnalysis TimePerformed AtPathologist SignatureBacterial Vaginosis DNANot DetectedNot Teabsurb14/21/2025 4:27 AM [facility] LABORATORYComment:Indicator DNA target(s) related to bacterial vaginosis organisms, which include: Atopobium vaginae,Atopobium novel species, Megasphaera-1, and Bacterial Vaginosis Associated Bacteria-2 (BVAB-2), is/are Not Detected.Abena species group DNANot DetectedNot Kryzoypi08/21/2025 4:27 AM [facility] LABORATORYComment:Abena group (C. albicans and/or C. tropicalis and/or C. parapsilosis and/or C. dubliniensis) target DNA is Not Detected.Abena glabrata/krusei DNANot DetectedNot Xxoyygey82/21/2025 4:27 AM [facility] LABORATORYComment:Abena glabrata and/or Abena krusei target DNA is Not Detected.Trichomonas VaginalisNot DetectedNot Kzsztyif22/21/2025 4:27 AM [facility] LABORATORYComment: Trichomonas vaginalis target DNA is Not Detected.Specimen (Source)Anatomical Location / LateralityCollection Method / VolumeCollection TimeReceived Time SwabVaginal structure / Rugokrc9704/27/2025 2:20 AM EST04/27/2025 3:19 AM EST Narrative [facility] - 04/27/2025 4:27 AM EST Assay methodology is nucleic acid amplification by real-time PCR, performed on [employer] Gene[employer] Medical Instrument System. Authorizing ProviderResult TypeResult StatusTannice [facility] MDMICROBIOLOGY - GENERAL ORDERABLESFinal ResultPerforming OrganizationAddressCity/State/ZIP Code Phone Number [facility] [address] [place] [address], * Resp Pathogens Panel/SARS CoV-2 (04/27/2025 2:20 AM EST)ComponentValueRef RangeTest MethodAnalysis TimePerformed AtPathologist SignatureSARS COV 2 BY PCRNot DetectedNot Ntqabcrb63/21/2025 4:21 AM [facility] LABORATORYADENOVIRUSNot DetectedNot Rqmzkwem17/21/2025 4:21 AM [facility] LABORATORYCORONAVIRUS 229ENot DetectedNot Qfdygxcc21/21/2025 4:21 AM [facility] LABORATORYCORONAVIRUS MEF8Ytf DetectedNot Qjnqltjr30/21/2025 4:21 AM [facility] LABORATORYCORONAVIRUS JN86Gbg DetectedNot Nwudkklk26/21/2025 4:21 AM [facility] LABORATORYCORONAVIRUS VW29Rib DetectedNot Ciztdguu01/21/2025 4:21 AM [facility] LABORATORYHUMAN METAPNEUVIRUSNot DetectedNot Detected 04/27/2025 4:21 AM [facility] LABORATORYRHINO/ENTEROVIRUSNot DetectedNot Mriztvar15/21/2025 4:21 AM [facility] INFLUENZA ANot DetectedNot Rcrruojo21/21/2025 4:21 AM [facility] LABORATORYINFLUENZA BNot DetectedNot Byhkrokd24/21/2025 4:21 AM [facility] LABORATORYPARAINFLUENZA 1Not DetectedNot Detected 04/27/2025 4:21 AM [facility] LABORATORYPARAINFLUENZA 2Not DetectedNot Szstwmrt86/21/2025 4:21 AM [facility] PARAINFLUENZA 3Not DetectedNot Xvjojoxj26/21/2025 4:21 AM [facility] LABORATORYPARAINFLUENZA 4Not DetectedNot Mwvsjehp55/21/2025 4:21 AM [facility] LABORATORYRESP SYNCYTIAL VIRUSNot DetectedNot Ewsanrye90/21/2025 4:21 AM [facility] LABORATORYBORD PARAPERTUSSISNot DetectedNot Sfiataby01/21/2025 4:21 AM [facility] LABORATORYBORDETELLA PERTUSSISNot DetectedNot Krnfhbun71/21/2025 4:21 AM [facility] LABORATORYCHLAM.PNEUMONIAENot DetectedNot Svxtuouu49/21/2025 4:21 AM [facility] LABORATORYMYCOPLASMA PNEUMONIAENot DetectedNot Glrvibsi64/21/2025 4:21 AM [facility] LABORATORYSpecimen (Source)Anatomical Location / LateralityCollection Method / VolumeCollection TimeReceived TimeSwabNasopharyngeal structure / Jevvopn4704/27/2025 2:20 AM EST04/27/2025 3:19 AM [facility] LABORATORY - 04/27/2025 4:21 AM [facility] BioFire Respiratory Panel 2.1 (RP2.1) is a [...] other pathogens. The agent(s) detected by the [employer] RP2.1 may not be the definite cause [...] GENERAL ORDERABLESFinal ResultPerforming OrganizationAddressCity/State/ZIP Code Phone Number [facility] [address] [place] [address], * Rupture of membrane (ALL) (04/27/2025 1:43 AM EST)ComponentValueRef RangeTest MethodAnalysis TimePerformed AtPathologist SignatureRUPTURE OF EXJGLJFSVmznfqyeQrtocbwr05/21/2025 3:08 AM [facility] LABORATORYSpecimen (Source)Anatomical Location / LateralityCollection Method / VolumeCollection TimeReceived TimeSwabVaginal structure / Remhyxv5304/27/2025 1:43 AM EST04/27/2025 2:13 AM EST Narrative Authorizing ProviderResult TypeResult StatusTannice Fogarthy MDBODY FLUIDS AND STOOLS ORDERABLESFinal ResultPerforming OrganizationAddressCity/State/ZIP Code Phone Number [facility] [address] [place] [address], * Antibody ID (04/27/2025 12:13 AM EST)ComponentValueRef RangeTest Method Analysis TimePerformed AtPathologist SignatureAntibody IDPassive D Antibody, Patient Received RHIG04/27/2025 2:35 AM ESTTTH CARLOS - GINNYKYSpecimen (Source) Anatomical Location / LateralityCollection Method / VolumeCollection Time Received TimeBloodVenous blood / UnknownVenipuncture / Guppxmj6504/27/2025 12:13 AM EST04/27/2025 12:19 AM EST Narrative Authorizing ProviderResult TypeResult StatusGaby Truong MDBLOOD BANK TEST ORDERABLESFinal ResultPerforming OrganizationAddressCity/State/ZIP CodePhone Number [facility] [address] [place] [address], [place] * Hepatitis C Virus Quantitative by NAAT (04/27/2025 12:13 AM EST)ComponentValue Ref RangeTest MethodAnalysis TimePerformed AtPathologist SignatureHCV InterpretationNot DetectedNot Wmluanxm39/22/2025 10:38 AM [facility] LABORATORYSpecimen (Source)Anatomical Location / LateralityCollection Method / VolumeCollection TimeReceived TimeBloodVenous blood / Unknown Venipuncture / Mzboprf7904/27/2025 12:13 AM EST04/27/2025 12:25 AM EST Narrative Authorizing ProviderResult TypeResult StatusGaby Truong MDLAB BLOOD ORDERABLESFinal ResultPerforming OrganizationAddressCity/State/ZIP CodePhone Number [facility] [address] [place] [address], * Type and screen (04/27/2025 12:13 AM EST)ComponentValueRef RangeTest Method Analysis TimePerformed AtPathologist TjdmpytsoJMMW72/21/2025 2:18 AM ESTTTH BB - YIYPGNVKGKzsyxhtz66/21/2025 2:18 AM ESTTTH BB - WELLSKYAntibody Screen Gfyuzjuf06/21/2025 2:18 AM [facility] CARLOS CHAOSpecimen (Source)Anatomical Location / LateralityCollection Method / VolumeCollection TimeReceived Time BloodVenous blood / UnknownVenipuncture / Jmidlcw5904/27/2025 12:13 AM EST 04/27/2025 12:19 AM EST Narrative Authorizing ProviderResult TypeResult StatusTannice Dionne PHILLIPSBLOOD BANK TEST ORDERABLESEdited Result - FinalPerforming OrganizationAddressCity/State/ZIP Code Phone Number [facility] [address] [place] [address], * (ABNORMAL) CBC auto differential (04/27/2025 12:13 AM EST)ComponentValueRef RangeTest MethodAnalysis TimePerformed AtPathologist ItzflbsgxMDB53.74 - 11 10^9L106/28/2024 12:57 AM [facility] LABORATORYRBC Count4.03 3.8 - 5.2 10^12L106/28/2024 12:57 AM [facility] Bzxukcmnnu85.011.7 - 15.5 g/dL04/27/2025 12:57 AM [facility] FEWLLBESPWJskguhrhfe65.6(L)35 - 47 %04/27/2025 12:57 AM [facility] FHJTEZAOUUDKU1706 - 100 fL04/27/2025 12:57 AM [facility] LJSFHODUWMXPN48.827 - 34 pg04/27/2025 12:57 AM [facility] VCPWBIDZSGAOPP23.732 - 36 g/dL04/27/2025 12:57 AM [facility] IDEVFIJRVFSEW10.611.5 - 15 %04/27/2025 12:57 AM [facility] LABORATORYPlatelet Qaerp317400 - 450 10^9/L106/28/2024 12:57 AM [facility] LABORATORYMPV8.87 - 12 fL04/27/2025 12:57 AM [facility] LABORATORYNeutrophils %87.8%04/27/2025 12:57 AM [facility] LABORATORYLymphocytes %10.9%04/27/2025 12:57 AM [facility] LABORATORYMonocytes %1.2%04/27/2025 12:57 AM [facility] LABORATORYEosinophils %0.0%04/27/2025 12:57 AM [facility] LABORATORYBasophils %0.1%04/27/2025 12:57 AM [facility] LABORATORYNeutrophils Absolute (A)9.4(H)1.5 - 6.6 10^9/L106/28/2024 12:57 AM [facility] LABORATORYLymphocytes Absolute1.21.0 - 3.5 10^9L106/28/2024 12:57 AM [facility] LABORATORYMonocytes Absolute0.10.0 - 0.9 10^9/L106/28/2024 12:57 AM [facility] LABORATORYEosinophils Absolute0.00.0 - 0.4 10^9/L106/28/2024 12:57 AM [facility] LABORATORYBasophils Absolute0.00.0 - 0.2 10^9/L106/28/2024 12:57 AM [facility] LABORATORYDifferential TypeAUTOMATED SGEELQUKQIBY14/21/2025 12:57 AM [facility] LABORATORYSpecimen (Source)Anatomical Location / LateralityCollection Method / VolumeCollection TimeReceived TimeBloodVenous blood / UnknownVenipuncture / Jqhlpdj4804/27/2025 12:13 AM EST04/27/2025 12:25 AM EST Narrative Authorizing ProviderResult TypeResult StatusTannice Dionne HUNTER BLOOD ORDERABLESFinal ResultPerforming OrganizationAddressCity/State/ZIP CodePhone Number [facility] [address] [place] [address], * (ABNORMAL) Comprehensive metabolic panel (04/27/2025 12:13 AM EST)Component ValueRef RangeTest MethodAnalysis TimePerformed AtPathologist SignatureSODIUM 688490 - 146 mmol/L106/28/2024 12:55 AM [facility]ATORY POTASSIUM4.03.5 - 5.0 mmol/L106/28/2024 12:55 AM [facility] RYDJCOKSEBMYWBXSMI00224 - 109 mmol/L106/28/2024 12:55 AM [facility] LABORATORYCARBON PVXHYQT29(L)22 - 32 mmol/L106/28/2024 12:55 AM [facility] LABORATORYANION EYW020 - 15 mmol/L106/28/2024 12:55 AM [facility] LABORATORYBLOOD UREA XGFQCEQN542 - 23 mg/dL 04/27/2025 12:55 AM [facility] LABORATORYCREATININE0.510.40 - 1.00 mg/dL04/27/2025 12:55 AM [facility] LABORATORYComment: METHOD TRACEABLE TO IDMS LXIZPDFRENWZUFU413(H)65 - 99 mg/dL04/27/2025 12:55 AM [facility] LABORATORYCALCIUM8.0(L)8.5 - 10.5 mg/dL04/27/2025 12:55 AM [facility] LABORATORYTOTAL PROTEIN6.56.0 - 8.0 g/dL 04/27/2025 12:55 AM [facility] LABORATORYALBUMIN3.73.2 - 5.3 g/dL04/27/2025 12:55 AM [facility] LABORATORYALKALINE CVYUIGAHVRU7321 - 130 U/L106/28/2024 12:55 AM [facility] MWASCVCJPZEUH96<=41 U/L106/28/2024 12:55 AM [facility] LABORATORYALT7<=31 U/L106/28/2024 12:55 AM [facility] LABORATORYBILIRUBIN,TOTAL0.2(L)0.3 - 1.2 mg/dL04/27/2025 12:55 AM [facility] LABORATORYEGFR Non-Race Dependent>90>=60 ml/min/1.73sq.m 04/27/2025 12:55 AM [facility] LABORATORYComment: Reported eGFR is based on the CKD-EPI 2021 equation that does not use a race coefficient. Specimen (Source)Anatomical Location / LateralityCollection Method / Volume Collection TimeReceived TimeBloodVenous blood / UnknownVenipuncture / Unknown 04/27/2025 12:13 AM EST04/27/2025 12:25 AM EST Narrative Authorizing ProviderResult TypeResult StatusTansarwat HUNTER BLOOD ORDERABLESFinal ResultPerforming OrganizationAddressCity/State/ZIP CodePhone Number [address] [place] [address], * Syphilis Total (Unknown Syphilis Status) (04/27/2025 12:13 AM EST)Component ValueRef RangeTest MethodAnalysis TimePerformed AtPathologist Signature SYPHILIS TOTAL<0.2<=0.8 AI04/27/2025 7:02 AM [facility] LABORATORYSpecimen (Source)Anatomical Location / LateralityCollection Method / VolumeCollection TimeReceived TimeBloodVenous blood / UnknownVenipuncture / Rescmri9904/27/2025 12:13 AM EST04/27/2025 12:25 AM EST Narrative [facility] - 04/27/2025 7:02 AM EST NON REACTIVE No serologic evidence of infection to Treponema pallidum. Repeat testing may be considered in patients with suspected acute or primary syphilis in 2 to 4 weeks. Authorizing ProviderResult TypeResult StatusTansarwat HUNTER BLOOD ORDERABLESFinal ResultPerforming OrganizationAddressCity/State/ZIP CodePhone Number [address] [place] [address], * PST TOP (04/27/2025 12:08 AM EST)ComponentValueRef RangeTest MethodAnalysis TimePerformed AtPathologist SignatureExtra TubeAuto Dhgwnpjf16/21/2025 2:02 AM [facility] LABORATORYSpecimen (Source)Anatomical Location / LateralityCollection Method / VolumeCollection TimeReceived TimeBloodVenous blood / Gnjrfuo3104/27/2025 12:08 AM EST04/27/2025 12:26 AM EST Narrative Authorizing ProviderResult TypeResult StatusDaorlando Cook MDLAB BLOOD ORDERABLESFinal ResultPerforming OrganizationAddressCity/State/ZIP CodePhone Number [facility] [address] [place] [address], * Light Blue Top (04/27/2025 12:08 AM EST)ComponentValueRef RangeTest Method Analysis TimePerformed AtPathologist SignatureExtra TubeAuto Resulted 04/27/2025 2:02 AM [facility] LAB[facility]YSpecimen (Source) Anatomical Location / LateralityCollection Method / VolumeCollection Time Received TimeBloodVenous blood / Zazhoys8004/27/2025 12:08 AM EST04/27/2025 12:26 AM EST Narrative Authorizing ProviderResult TypeResult StatusDavid A Cook Expert Medical NavigationLAB BLOOD ORDERABLESFinal ResultPerforming OrganizationAddressCity/State/ZIP CodePhone Number [facility] [address] [place] [address], documented in this encounter Visit Diagnoses Diagnosis [...] 2359, L&D Pre-Delivery Given04/27/2025 4:03 PM EST1,000 whZctpo3904/27/2025 7:03 AM EST1,000 mgGiven 04/27/2025 2:24 AM [...] mL/hrNew Bag04/27/2025 3:16 PM EST2,000 mg200 mL/hrRate/Dose Yuqede4004/27/2025 9:10 AM ESZ335 mL/hr betamethasone acet & sod phos (CELESTONE) [...] 500 mg calcium carbonate Given04/27/2025 9:16 PM WTY097 zoSxqyg8804/27/2025 1:55 AM RXT528 mg calcium gluconate injection 1,000 mg 1,000 [...] glucose less than 70 mg/dL, Starting on Sun /21/25 at 0200, For 365 days, Use immediately [...] doses, L&D Pre-Delivery New 04/27/2025 9:48 PM MZS377 mg105 mL/hrNe 04/27/2025 4:04 PM ECA055 mg 105 mL/hrNew 04/27/2025 9:52 AM VAQ582 mg105 mL/hr glucagon HCL injection 1 mg [...] Once, On 04/27/25 at 0545, For1 dose Irdslkxit72/21/2025 6:47 AM LUZ002 mL/hrRate/Dose Dqudya0004/27/2025 6:00 AM EST 984 mL/hrNew Bag04/27/2025 5:40 AM EST1,000 mL984 mL/hr lactated ringers infusion 250 mL/hr, intravenous, Continuous PRN, to improve utero-placental perfusion and/or relieve cord compression, Starting on 04/26/25 at 2359, For 1 day, L&D Pre-Delivery lactated ringers infusion 75 mL/hr, intravenous, Continuous, Starting on 04/27/25 at 0430, For 1 day Mflkwmybt75/21/2025 10:52 AM EST75 mL/rrAyjtqhtlv96/21/2025 9:35 AM EST75 mL/hr Kteipaynr94/21/2025 8:08 AM EST75 mL/hr75 mL/hr magnesium sulfate [...] minutes. Given04/27/2025 5:35 AM EST4 mg PNV,calcium 47-ryct-qergf acid ( PLUS) 27 mg iron- 1 mg tablet 1 tablet 1 tablet, oral, Daily, First dose on Mon04/27/25 at 0900, L&D Pre-Delivery Given04/27/2025 9:08 AM EST1 tablet sodium chloride 0.9 % flush 3 mL 3 mL, intravenous, Every 8 hours, First dose on Mon04/27/25 at 0015, L&D Pre- Delivery, Flush peripheral line per protocol Given04/27/2025 5:08 PM EST3 fXHjjiy9004/27/2025 9:07 AM EST3 mL sodium chloride 0.9 % flush 3 mL 3 mL, intravenous, As needed, line care, to maintain patency, Starting on Mon04/27/25 at 0000, L&D Pre-Delivery valACYclovir (VALTREX) tablet 1,000 mg 1,000 mg, oral, 2 times daily, First dose on Mon04/27/25 at 0930, Look-alike/sound-alike medication - verify indication for use., Indication: Mucocutaneous HSV Given04/27/2025 9:13 PM EST1,000 mfUrcqs2904/27/2025 11:07 AM EST1,000 mg documented in this [...] Bag - Provider: Kenia Perez RN) * 0905 (New Bag - Provider: [...] May alter blood glucose or insulinrequirements. * 192 (Given - Provider: Shanika Ortega, KLEVER) erythromycin (E-MYCIN) EC tablet 250 mg(Linked Group [...] * 0448 (Stop Bag - Provider: Kenia Perez RN) * 0952 (New Bag - Provider: Kaleigh Dexter, KLEVER) * 1052 (Stop Bag - Provider: Kaleigh Dexter, RN) * 1604 (New Bag - Provider: Jemima Weaver, RN) * 1704 (Stop Bag - Provider: Shanika Ortega, RN) * 2148 (New Bag - Provider: Shanika Ortega, RN) * 2248 (Stop Bag - Provider: Shanika Ortega RN) lactated ringers bolus (COMPLETED) 1,000 mL, [...] (Given - Provider: Kenia Perez RN) PNV,calcium 32-cskb-kadlz acid ( PLUS) 27 mg iron- 1 [...] Pre-Delivery * 0224 (Given - Provider: Kenia Perez RN) * 0703 (Given - Provider: [...] glucose less than 70 mg/dL, Starting on Mon04/27/25 at 0200, For 365 days, Use immediately [...] follow-up plan has been documented for the zdkkbob9409/11/2018 4:32 PM EDTdocumented as of this encounter Care Teams Team MemberRelationshipSpecialtyStart DateEnd Date Rebecca Rizvi APRN-JEYSON [address] [place] [phone] PCP - GeneralNurse Practitioner08/23/22documented as of this encounter
--- OUTSIDE RECORDS SUMMARY | 2025-05-07 10:20 | XMS_ITS | Encounter Summary ---
Author Organization [facility] Address [address] [place] [address] Care Team Providers Care Mathematical Engineering Technician Name Role Phone Rebecca Rizvi MD Primary Care Provider [phone] Reason for Visit * ReasonCommentsRoutine Visit Encounter Details DateTypeDepartmentCare Team (Latest Contact Info)Tiulyxmwjvb34/31/2025 10:20 AM ESTRoutine [facility] [place] [facility] [address] [facility] [place] [address] Jaylin Chung, NATHANIEL [address] [facility] [place] [address] Third trimester ([facility]); 30 weeks gestation of ([facility]); H/O LEEP; Multigravida of advanced maternal age in second trimester ([facility]); HSV (herpes simplex virus) infection; 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; Anemia, unspecified type; History of hepatitis C; Twin gestation in third trimester, unspecified multiple gestation type ([facility]) Social History Tobacco UseTypesPacks/DayYears UsedDateSmoking Tobacco: Never Assessed Estimated Date of AimihjlrMarwbzbbTxv63/11/2026Based on UltrasoundSex and Gender InformationValueDate RecordedSex Assigned at BirthNot on fileLegal SexFemale 07/20/2022 6:43 PM EDTGender IdentityNot on fileSexual OrientationNot on file documented as of this encounter Last Filed Vital Signs Vital SignReadingTime TakenCommentsBlood Rgbkqppf748/7205/07/2025 11:26 AM EST Pulse--Temperature--Respiratory Rate--Oxygen Saturation--Inhaled Oxygen Concentration--Tkkjtm29.5 kg (184 lb)05/07/2025 11:26 AM ESTHeight--Body Mass Index--documented in this encounter Progress Notes * Jaylin Chung NP - 05/07/2025 10:20 AM EST Reason for Appointment: Patient ID: Ese [...] of advanced maternal age in second trimester ([facility]) 03/13/2025 H/O LEEP 03/13/2025 HSV (herpes simplex virus) infection 03/13/2025 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 Exam conducted with a supervisor typesetting present. Vitals: There is no height or weight on file to calculate BMI. BP: 112/72 No LMP recorded. Patient is . Assessment/Plan ICD-10-CM 1. Third trimester ([facility]) Z34.93 POCT urinalysis dipstick manually resulted 2. 30 weeks gestation of ([facility]) Z3A.30 3. H/O LEEP Z98.890 4. Multigravida of advanced maternal age in second trimester ([facility]) O09.522 5. HSV (herpes simplex virus) infection B00.9 6. 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 Anemia, unspecified type D64.9 8. History of hepatitis C Z86.19 9. Twin gestation in third trimester, unspecified multiple gestation type ([facility]) O30.003 Assessment/Plan Return OB: Patient presents today for a routine obstetrics appointment. Patient is currently 30w0d . Patient states she is doing well [...] week for routine OB appointment. Documented by Sosa Funes MA on behalf of: Jaylin Chung NP documented in this encounter Plan of Treatment DateTypeDepartmentCare Team (Latest Contact Info)Csyiatimyuv15/14/2026 3:50 PM ESTRoutine [facility] [place] [facility] [address] [facility] [address] Rene Hayden DO [address] [facility] [place] [address] documented as of this encounter Procedures Procedure NamePriorityDate/TimeAssociated DiagnosisCommentsPOCT URINALYSIS KBWXKJKQMoudnkn43/31/2025 11:26 AM EST Third trimester ([facility]) documented in this encounter Results * (ABNORMAL) POCT urinalysis dipstick manually resulted (05/07/2025 11:26 AM EST)ComponentValueRef RangeTest MethodAnalysis TimePerformed AtPathologist SignatureColor, UAYellowClarity, UAClearGlucose, UANegativeNegative - 2000(110) ++++ mg/dLBilirubin, UANegativeNegative - 4(70) +++ mg/dLKetones, UA NegativeNegative - 160(16) ++++ mg/dLSpec Grav, UA1.0151 - 1.03Blood, UA NegativeNegative - 50 Masood/mcLpH, UA7.05 - 9Protein, UA1+Negative - 2000(20) ++++ mg/dLUrobilinogen, UA1.00.2 - 12 mg/dLLeukocytes, UA1+Negative - 500+++ Albin/mcLNitrite, UANegativeNegative - PositiveSpecimen (Source)Anatomical Location / LateralityCollection Method / VolumeCollection TimeReceived Time Urine05/07/2025 11:26 AM EST Narrative Authorizing ProviderResult TypeResult StatusJaylin Chung NPPOINT OF CARE TEST ENTER/EDIT ORDERABLESFinal Result documented in this encounter Visit Diagnoses Diagnosis Third trimester ([facility]) state, incidental 30 weeks gestation of ([facility]) H/O LEEP Multigravida of advanced maternal age in second trimester ([facility]) HSV (herpes simplex virus) infection Herpes simplex without mention of complication 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
--- OUTSIDE RECORDS SUMMARY | 2025-05-07 11:54 | XMS_ITS | Encounter Summary ---
Author Organization [facility] Address [address] [facility] [place] [address] Care Team Providers Care Automation Machine Builder Name Role Phone Rebecca Rizvi MD Primary Care Provider [phone] Encounter Details DateTypeDepartmentCare Team (Latest Contact Info)Usczyngjmyu39/20/2025linisync Result Encounter [facility] External Department Unsolicited Mamadou Hayden, DO [address] [place], [place] [id number] Social History Tobacco UseTypesPacks/DayYears UsedDateSmoking Tobacco: Never Assessed Estimated Date of UaakfmaaBlefjkogXqq08/11/2026Based on UltrasoundSex and Gender InformationValueDate RecordedSex Assigned at BirthNot on fileLegal SexFemale 07/20/2022 6:43 PM EDTGender IdentityNot on fileSexual OrientationNot on file documented as of this encounter Plan of Treatment DateTypeDepartmentCare Team (Latest Contact Info)Xlnburjohcp67/14/2026 3:50 PM ESTRoutine [facility] [address] [place] [address] Mamadou Hayden, DO [address] [facility] [address] [place], [place] [phone] documented as of this encounter Procedures Procedure NamePriorityDate/TimeAssociated DiagnosisCommentsALL CBC WITH AUTO JNXYBlwdxtg70/20/2025 6:50 PM EST US OB FEUWUGDZ17/20/2025 5:17 PM EST documented in this encounter Results * (ABNORMAL) ALL CBC WITH AUTO DIFF (04/26/2025 6:50 PM EST)ComponentValueRef RangeTest MethodAnalysis TimePerformed AtPathologist SignatureTBH WBC9.14.0 - 11.0 10 3/uLTBHTBH RBC3.77(L)4.20 - 5.40 10 6/uLTBHTBH HGB11.4(L)12.0 - 16.0 g/dLTBHTBH HCT33.1(L)36.0 - 48.0 %TBHTBH MCV87.881.0 - 99.0 fLTBHTBH MCH30.2 26.7 - 34.0 pgTBHTBH MCHC34.429.9 - 35.2 g/dLTBHTBH RDW13.011.0 - 15.0 %TBHTBH YUQ470159 - 450 10 3/uLTBHTBH MPV10.59.5 - 13.5 [...] Performing OrganizationAddressCity/State/ZIP CodePhone Number [facility]IN[facility] TB * US OB PLACENTA (04/26/2025 5:17 PM EST)Anatomical RegionLateralityModality OtherSpecimen (Source)Anatomical Location / LateralityCollection Method / VolumeCollection TimeReceived Time04/26/2025 5:17 PM EST Narrative 04/26/2025 5:20 PM EST [facility] ?[address] ? [place] [address] ? Ultrasound Report ? Signed ? Patient: DESMOND,ESE N ?MR#: [id number] ?? : 1990 ?Acct:[id number] ?? Age/Sex: 34 / F ?ADM Date: 04/26/25 ?? Loc: [facility] ??250-1 ? Attending Dr: Mamadou Hayden D.O. ? Ordering Physician: Mamadou Hayden D.O. ?? Date of Service: 04/26/25 ?? Procedure(s): US OB placenta ?? Accession Number(s): [id number] ? cc: Mamadou Hayden D.O.; Rebecca Rizvi ONLINE RETAILER ? [facility] ? [address] ? [place] [address] ? Patient Name: ?? ESE Brigette DESMOND ? MRN: [facility]:[id number] ? date: 1990 ?Sex: F ?? Assigned Patient Location: [facility] ?? Current Patient Location: [facility] ?? Accession/Order Number: [id number] ?? Exam Date: 04/26/2025 ??16:29 ?Report Date: [...] Dictation Location: RADIO-PC-18 ? Electronically authenticated by: [id number] ??Y ?? Date: 04/26/2025 ??17:17 ? Dictated By: ?Howard Huang M.D. ? Signed By: ?04/26/25 1720 ? DD/ 1717 ? TD/TT: ? Guest Services Agent: Procedure Note Radiology, Radiologist, - 04/26/2025 [place] [address] Ultrasound Report Signed Patient: ESE BADILLO NMR#: [id number] : 1990Acct:[id number] Age/Sex: 34 / FADM Date: 04/26/25 Loc: [facility] 250-[address]: Mamadou Hayden D.O. Ordering Physician: Mamadou Hayden D.O. Date of Service: 04/26/25 Procedure(s): US OB placenta Accession Number(s): [id number] cc: Mamadou Hayden D.O.; Rebecca Rizvi ONLINE RETAILER The [place] [address] Patient Name: ESE BADILLO MRN: [id number] date: 1990 Sex: F Assigned Patient Location: [facility] Current Patient Location: [facility] Accession/Order Number: [id number] Exam Date: 04/26/2025 16:29 Report Date: 04/26/2025 [...] Jr., D.O. 04/26/2025 5:17 PM Dictation Location: [place] [address] Electronically authenticated by: [id number] Y Date: 7:17 Dictated By: Howard Huang M.D. Signed By:04/26/25 172 DD/ 16 TD/TT: Guest Services Agent: Authorizing ProviderResult TypeResult StatusCorey Jackelyn DOCLINISYNC IMAGINGFinal Result documented in this encounter Visit Diagnoses Not on filedocumented in this encounter Care Teams Team MemberRelationshipSpecialtyStart DateEnd Date Rebecca Rizvi MD [address] [place] [phone] PCP - GeneralFamily Medicine01/03/25documented as of this encounter
--- OUTSIDE RECORDS SUMMARY | 2025-05-07 11:54 | XMS_ITS | Encounter Summary ---
Author Organization [employer] Address [id number] [address] [place] [address] Care Team Providers Care Regulatory Affairs Analyst Name Role Phone Rebecca Rizvi BLANCA-ACREAGE REPORTER Primary Care Provider Encounter Details DateTypeDepartmentCare Team (Latest Contact Info)Xpduclzewct28/23/2025[facility] [address] [place] [phone] Opal Herndon, RN Social History Tobacco UseTypesPacks/DayYears [...] care, and heating?Not hard at all05/07/2024HQ-2AnswerDate RecordedTotal Iudxm034PRAPARE - TransportationAnswerDate RecordedIn the past 12 months, has lack of transportation kept you from medical appointments or from getting medications?No 03/28/2024In the past 12 months, has lack of transportation kept you from meetings, work, or from getting things needed for daily living?No03/28/2024 [place] Depression ScaleAnswerDate RecordedEdinburgh Depression Scale Hpcst111The thought of harming myself has occurred to [...] of a household?No4Childcare AnswerDate RecordedDo problems getting exceptional children teacher assistant make it difficult for you to work or study?No05/07/2024EmploymentAnswerDate RecordedEmploymentUnknown 10/15/2018Hunger ScreeningAnswerDate RecordedWithin the past 12 months we worried whether our food would run out before we got money to buy more.Never True03/11/2025Within the past 12 months the food we bought just didn't last and we didn't have money to get more.Never True03/11/2025Purpose - LifeAnswerDate RecordedPurpose and direction in dpeiIwfxdev97/10/2021Estimated Date of ExzzuareIoimdowqEzm44/11/2026Based on UltrasoundSex and Gender InformationValue Date RecordedSex Assigned at OhufxVfzbco48/02/2022 7:15 PM EDTLegal SexFemale 12/09/2014 2:44 PM EDTGender FjhbkbxzZvgtnh03/02/2022 7:15 PM EDTSexual NjihjgyxzndSjsljdqq48/02/2022 7:15 PM EDTdocumented as of this encounter Miscellaneous Notes * Telephone Encounter - Opal Herndon RN - 04/29/2025 3:15 PM EST Prior authorization done on covermymeds. Waiting for approval. Patient notified it could take 24-48hours to be completed. documented in this encounter Plan of Treatment DateTypeDepartmentCare Team (Latest Contact Info)Orhzawinobe35/08/2026 8:30 AM ESTAppointment [facility] [address] [place] [phone] 05/15/2025 9:30 AM ESTInitial [facility] [address] [place] [phone] Florecita Bergeron MD [address] [place] [phone] 05/15/2025 11:00 AM ESTOffice Visit Maternal- Medicine at [facility] [address] [place] [phone] Charlene Lees MD [address] [address] 11/04/2025 4:00 PM EDTOffice Visit [facility] [address] [place] [address] Rebecca Rizvi APRN-CNP [address] [place] [phone] documented as of this encounter Visit Diagnoses Not on filedocumented in this encounter Additional Health Concerns AssessmentNoted TimePHQ-9 Depression Total Score: 3:04 PM EDTA Body Mass Index follow-up plan has been documented for the vdqidhk2009/11/2018 4:32 PM EDTdocumented as of this encounter Care Teams Team MemberRelationshipSpecialtyStart DateEnd Date Rebecca Rizvi APRN-ACREAGE REPORTER [address] [place] [address] PCP - GeneralNurse Practitioner08/23/22documented as of this encounter
--- OUTSIDE RECORDS SUMMARY | 2025-05-07 11:54 | XMS_ITS | Encounter Summary ---
Author Organization [facility] Address [address] [facility] [place] [address] Care Team Providers Care Advanced Practice Registered Nurse Name Role Phone Rebecca Rizvi MD Primary Care Provider [phone] Encounter Details DateTypeDepartmentCare Team (Latest Contact Info)Dicqbwjyoca62/20/2025linisync Result Encounter [facility] External Department Unsolicited Rene Hayden, DO [address] [place], [place] [phone] Social History Tobacco UseTypesPacks/DayYears UsedDateSmoking Tobacco: Never Assessed Estimated Date of QnbefscqQzqhjbovAnx33/11/2026ased on UltrasoundSex and Gender InformationValueDate RecordedSex Assigned at BirthNot on fileLegal SexFemale 07/20/2022 6:43 PM EDTGender IdentityNot on fileSexual OrientationNot on file documented as of this encounter Plan of Treatment DateTypeDepartmentCare Team (Latest Contact Info)Wdhjumcseth36/14/2026 3:50 PM ESTRoutine [facility] [address] [place] [address] Rene Hayden DO [address] [place], [place] [phone] documented as of this encounter Procedures Procedure NamePriorityDate/TimeAssociated DiagnosisCommentsAMNISURERoutine 04/26/2025 3:25 PM EST TBH UA (CLEAN/CATCH) JOURNALISM INTERN/MICRO IF IND.Csceuli1004/26/2025 3:25 PM EST documented in this encounter Results * (ABNORMAL) AMNISURE (04/26/2025 3:25 PM EST)ComponentValueRef RangeTest Method Analysis TimePerformed AtPathologist SignatureTBH AMNISUREPOSITIVE(A)NEGATIVE TBHSpecimen (Source)Anatomical Location / LateralityCollection Method / Volume Collection TimeReceived Time04/26/2025 3:25 PM EST04/26/2025 3:56 PM EST Narrative [facility] - 04/26/2025 4:21 PM EST Authorizing ProviderResult TypeResult StatusCorey Jackelyn DOLAB BLOOD ORDERABLES Final ResultPerforming OrganizationAddressCity/State/ZIP CodePhone Number [facility]AR[facility] TB * (ABNORMAL) TBH UA (CLEAN/CATCH) JOURNALISM INTERN/MICRO IF IND. (04/26/2025 3:25 PM EST) ComponentValueRef [...] Jackelyn DOCLINISYNCFinal Result Performing OrganizationAddressCity/State/ZIP CodePhone Number [facility] TB documented in this encounter Visit Diagnoses Not on filedocumented in this encounter Care Teams Team MemberRelationshipSpecialtyStart DateEnd Date Rebecca Rizvi MD [facility] [place] [address] PCP - GeneralFamily Medicine01/03/25documented as of this encounter
--- OUTSIDE RECORDS SUMMARY | 2025-05-07 11:54 | XMS_ITS | Clinical Summary ---
Author Organization RADSONE tem Address [facility] [id number] [address] [place] [address] Care Team Providers Care Can Striper Name Role Phone Rebecca Rizvi BLANCA-RESIDENCY COORDINATOR Primary Care Provider Allergies No known active allergies Medications * This document contains information received from the source organization and may not represent a complete record from that organization. MedicationSigDispense QuantityRefillsLast FilledStart DateEnd DateStatus omeprazole (PriLOSEC) 40 mg capsule Indications:Heart burnTake 1 capsule (40 mg total) by mouth in the morning. 30 capsule 6084Active Additional Information Patient not taking.Reported on 04/14/2025 222-rhnp-dmhdvm 6-dha 27 mg iron-1 mg -205 mg [...] tablet oral Daily, Bedtime,Occasionally, Reported on 04/14/2025 XXQB-ezdmakcv-grzvjxvvgip xt 100-100-225 mg capsule Take 1 capsule [...] BY MOUTH EVERY MORNING 30 tablet 5Active drospirenone, contraceptive, 4 mg (28) tablet Take 4 mg by mouth in the morning. 28 tablet 12106/10/Discontinued(Stop Taking at Discharge) etonogestreL-ethinyl estradioL (NUVARING) 0.12-0.015 mg/24 hr vaginal ring Indications:Encounter for initial prescription of vaginal ring hormonal contraceptiveInsert 1 each into the vagina every 21 days. Insert vaginally and leave in place for 3 consecutive weeks, then remove for 1 week. 1 each /Discontinued(Stop Taking at Discharge) amoxicillin (AMOXIL) 250 mg capsule Take 1 capsule (250 mg total) by mouth every 8 (eight) hours for 18 doses. 18 capsule Expired erythromycin (E-MYCIN) 250 mg tablet,delayed release (DR/EC) Indications: premature rupture of membranes in third trimester, unspecified duration to onset of laborTake 1 tablet (250 mg total) by mouth every 8 (eight) hours for 18 doses. 18 tablet 51Expired Active Problems Patient Care Coordination No te Formatting of this note migh t be different from the original. 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, Dandy Walker Malformation, Possible clubbed feet Twin B - WNL PPROM of Twin A 04/27/25 Left hospital AMA due to early childhood issues Referring OB: Jackelyn MFM: Fabio Maternal Hx: MOB and FOB carriers for Galactosemia AMA MSAFP: cfDNA: Dizigotic XY XY Low risk Carrier: Amnio: []Genetic Counselling: []Peds Cardiology: []Peds Urology: []Peds Ortho: []Peds Surgery: []Peds Neurology: [x]Peds Neurosurgery: [facility] 03/18/25 Pediatric neurosurgical consultation has [...] Consult: []Palliative Care Consult: []SGM: []Life Connection: [x]Lanse: 03/17 and 03/18 [x] MRI & US [...] Term at local hospital [] Term at [facility] Surveillance Plan: [] Survey at __ weeks [] Growth q __ weeks [] Dopplers q __ weeks [] Echo at __ weeks [] Cervical length q __ weeks [] TTTS q __ weeks [] Wkly NST/PAMELA starting at __ weeks [x] 2x/wk NST/PAMELA starting Now 04/27/25 ProblemNoted DateDiagnosed DatePremature rupture of ukpfyaavg89/21/2025MA (advanced maternal age) multigravida 35+, second bqqigljob36/04/2025nemia affecting in third etyfzpykx77/30/2024 Overview (01/23/2024): 01/15: IV iron 01/22: IV iron Vitamin D jiyznpnvqg90/03/2023Estimated Date of DeliveryCommentsYes 07/16/2025ased on Ultrasound Resolved Problems ProblemNoted DateDiagnosed DateResolved DateNSVD (normal spontaneous vaginal delivery)/2073Jgelgsmfh21Normal labor03/26/20249 weeks gestation of gmbtnrubk64bdominal pressure Irregular uterine bltrjqsniiko01History of heroin abuse Overview (03/17/2024): 03/17/2024: Patient states she has been clean since 2011. Dakqfoke22 Overview (11/14/2023): Bleeding after intercourse - 10-31-23 spec exam done. Bleeding is coming from metaplasia of cervix. Thick/closed 312383 = GC and CT negative Hx of [...] MFM consult: Rh negative state in antepartum aentak26/HSV infection Overview (10/31/2023): 09-05-23 genital lesion cultured- + HSV2 States gets oral lesions Discussed genital HSV and need for prophylaxis at 34 weeks. 10-31-23 - c/o HSV oral break out. 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 They have a olnp-krvk-mxs daughter that has a mild form (Clemens [...] 25%. We reviewed all children born in [place] are screened for galactosemia via screening (NBS) after . 1. Amniocentesis discussed and declined. 2. Continue to monitor the via ultrasound. 3. Patient diagnoses: galactosemia carriers, family history of galactosemia and muscular dystrophy History of loop electrical excision procedure (LEEP)/ Overview (09/05/2023): LEE 2016 Cervical lengths to start at 16 weeks until 24 weeks. Intermittent explosive gmcakvau49ipolar kjdawoim93/23/2023 10/01/20245731Sotlqrhm26History of drug abuse09/06/2022EczemaVitamin B 12 caxtojquoq93/02/2023 02/21/2023FH: brain omphdvxe06pontaneous vaginal delivery Failed induction of labor, qboddpuhdm28 Intrauterine nerysajui36Echogenic focus of heart of fetus affecting antepartum care of vmorji35 Overview (10/09/2017): First Trimester and MSAFP is WNL US was repeated and the EIF Is smaller - her first trimester screen was negative PLAN: rpt US in 4 weeks Notify Peds at History of hepatitis / Overview (09/08/2023): treated 04/2020 with Mavyret (Dr. Daniel) 09/07/22 viral load undetectable 09/05/23 viral load undetected Rh negative, antepartum, first xsbbwaozg46Attention deficit hyperactivity disorder (ADHD), predominantly hyperactive type03/20/2017 10/01/20244605Wsqlott42Headaches, ccythzx30/05/2021HCV antibody maotzlts69 Overview (07/17/2017): Avoid scalp electrode Notify peds at delivery LFT and viral load each trimester and at delivery Elevated liver rfnumop48Cannabis abuse Tobacco useHistory of opioid abuse Overview (08/14/2017): Has not used opoid since Hx of intravenous drug use in kuqokkhms64CIN II (cervical intraepithelial neoplasia II) Overview (08/14/2017): =ASC-H =HGSIL = LEEP - Dr. Bhatia - PAP=WNL Rpt PAP post Encounters DateTypeDepartmentCare SyslAqosqooyrdz41/30/2025Documentation Maternal- Medicine at [facility] [address] [place] [phone] Eliza Chinchilla APRN-JOVANNY 04/30/2025Documentation Maternal- Medicine at [facility] [address] [place] [phone] Eliza Chinchilla APRN-JOVANNY 04/29/2025[facility] [address] [place] [address] Opal Herndon RN 04/27/20255373Hpfqpu54/20/2025 11:50 PM EST - 04/27/2025 11:24 PM ESTHospital Encounter [facility] - Labor [address] [facility] [place] [address] Escobar Cook MD premature rupture of membranes (PPROM) with unknown onset of labor (Primary Dx); premature rupture of membranes in third trimester, unspecified duration to onset of labor Discharge Disposition: Left Against Medical Advice or Discontinued Care 04/14/2025 9:00 AM ESTOffice Visit Maternal Medicine [place] [address] [place] [address] Abiola Chris MD 26 weeks gestation of (Primary Dx); Twin following selective reduction, antepartum; Dichorionic diamniotic twin in second trimester; Carrier of ahkmrkepqedb38/08/0642Yrnxak99/24/2025Orders Only Maternal- Medicine at [facility] [address] [place] [address] Debo Shea, KLEVER AMA (advanced maternal age) multigravida 35+, second trimester (Primary Dx); Dichorionic diamniotic twin in second /24/2025Orders Only Maternal- Medicine at [facility] [address] [place] [address] Malena Ocasio RDMS 03/19/2025Orders Only Maternal- Medicine at [facility] [address] [place] [address] Ref Prov, Not In System 03/18/2025Telephone Maternal- Medicine at [facility] [address] [place] [address] Helen Robertson, RN 03/11/2025 11:00 AM ESTOffice Visit Maternal- Medicine at [facility] [address] [facility] [place] [address] Tejinder Mccarthy MD Anemia affecting in third trimester (Primary Dx); AMA (advanced maternal age) multigravida 35+, second bhnjjiivl04/04/2025 8:54 AM EST - 03/11/2025 11:59 PM ESTHospital Encounter [facility] US Imaging [address] [place] [address] Screening, , for anatomic survey Discharge Disposition: Home03/11/20259324Qfjqjy47/16/2025Orders Only Maternal- Medicine at [facility] [address] [place] [address] Ref Prov, Not In System 02/19/2025 1:45 PM EDTSupport Visit Maternal- Medicine at [facility] [address] [place] [address] 02/19/20257404Aysogw05/06/2025bstract Maternal- Medicine at [facility] [address] [place] [phone] Tejinder Mccarthy MD from Last 3 Months Immunizations ImmunizationAdministration DatesNext OzlKOB6206/12/1989,02/08/1990,1989DTaP, Zuukmajzboz41/08/2002,10/04/1994,04/16/1991HPV Yyageuljfrfb70/14/2007Hep A, 2 Dose03/21/2007Hep B, Adolescent or Kwrfqswmp83/26/2002,05/15/2001,04/04/2001HiB 02/12/1991,09/20/1990,08/05/1990Influenza, Injectable, quadrivalent (PF) 02/27/2024,05/22/2017MMR05/15/2001,02/12/1991Meningococcal DQN0I3703/21/2007OPV 10/04/1994,04/16/1991,02/08/1990,1989Polio, Osjwskhxvqj96/08/2002RSV, bivalent, protein subunit RSVpreF, diluent reconstituted, 0.5 mL, PF02/23/2024 Rho (D) Immune Tnrnkrmr50/21/2024,01/02/2024,11/14/2023,08/23/2023,09/11/2017Td, Bbfqljmulek50/26/0429Wdqp24/06/2024 Family History Medical HistoryRelationNameCommentsDrug abuseBrotherDrug abuseFatherHeart diseaseFatherMigrainesFatherParkinsonismMaternal [...] has the electric, gas, oil, or water Spyra threatened to shut off services in your home?No03/28/2024Overall Financial Resource Strain (CARDIA)AnswerDate RecordedHow hard is it for you to pay for the very basics like food, housing, medical care, and heating?Not hard at all05/07/2024HQ-2AnswerDate RecordedTotal Ntmom175PRAPARE - TransportationAnswerDate RecordedIn the past 12 months, has lack of transportation kept you from medical appointments or from getting medications?No03/28/2024In the past 12 months, has lack of transportation kept you from meetings, work, or from getting things needed for daily living?No03/28/2024Edinburgh Depression ScaleAnswerDate Recorded [place] Depression Scale Xwthl561The thought of harming myself has occurred to [...] a household?No03/28/2024hildcareAnswerDate RecordedDo problems getting early childhood make it difficult for you to work or study?No05/07/2024EmploymentAnswerDate IpeuoonjSqvvztxeoxPhknmav92/10/2019Hunger ScreeningAnswerDate RecordedWithin the past 12 months we worried whether our food would run out before we got money to buy more.Never True03/11/2025Within the past 12 months the food we bought just didn't last and we didn't have money to get more.Never True03/11/2025Purpose - LifeAnswerDate RecordedPurpose and direction in zcsuQtxrafe49/10/2021 Estimated Date of QkecvjixOssewixfVfz75/11/2026Based on UltrasoundSex and Gender InformationValueDate RecordedSex Assigned at LbgmyAoshuf77/02/2022 7:15 PM EDT Legal AfrIwnmcd59/04/2015 2:44 PM EDTGender PnafmimkZtalon76/02/2022 7:15 PM EDT Sexual MziittgvtffLdhiragw43/02/2022 7:15 PM EDT Last Filed Vital Signs Vital SignReadingTime TakenCommentsBlood Ujeetcrc172/6004/27/2025 7:23 PM EST Cmunm895904/27/2025 7:23 PM ZGOGzzzkmxowdx05.7 ??C (98.1 ??F)04/27/2025 9:34 PM ESTRespiratory Wprx382706/28/2024 7:23 PM ESTOxygen Arnonznwth78%04/27/2025 9:00 AM ESTInhaled Oxygen Concentration--Vqmlyf58.9 kg (185 lb)04/14/2025 9:04 AM EST Ltosbt112 cm (5' 2.99 )03/11/2025 9:42 AM ESTBody Mass Index32.7811 9:42 AM EST Plan of Treatment DateTypeDepartmentCare Team (Latest Contact Info)Xmqvnbgryix35/08/2026 8:30 AM ESTAppointment [facility] US Imaging [address] [place] [phone] 05/15/2025 9:30 AM ESTIn[facility]ol[facility] [address] [place] [address] Florecita Bergeron MD [address] [place] [phone] 05/15/2025 11:00 AM ESTOffice Visit Maternal- Medicine at [facility] [address] [place] [phone] Abiola Chris MD [address] [address] 11/04/2025 4:00 PM EDTOffice Visit [facility] [address] [place] [phone] Rebecca Rizvi, SOFTWARE QUALITY AUTOMATION ENGINEER-[facility] [address] [place] [address] Health MaintenanceDue DateLast DoneCommentsAdult BMI Follow Up Plan10/04/2007 Influenza Zghplwz73, 05/22/2017Depression Wcgbccixo82/24/2026 10/29/2024, 05/07/2024dult BMI Svawiiusm77Tobacco Screening Pap Smear, 10/01/2024, 09/05/2023, Additional history existsDTaP,Tdap and Td Vaccines (9 - Td or Tdap)01/11/2034 01/12/2024, 12/31/2001, 05/15/2001, Additional history existsRSV ( or age 60+ yrs)Sfwvjoghd27/18/2024 Medical Devices Not on file Procedures Procedure NamePriorityDate/TimeAssociated DiagnosisCommentsURINALYSISRoutine 04/27/2025 7:56 AM EST LACTATE W/ APKGRRVUDK15/21/2025 6:25 AM EST COMPREHENSIVE METABOLIC CCRSFPOJK65/21/2025 6:25 AM EST CBC WITH AUTO MZJEVUGBLLHDURNT14/21/2025 6:25 AM EST BLOOD VAMIKZTVRWY11/21/2025 6:25 AM EST BLOOD LHQLZSBLZXG82/21/2025 6:25 AM EST EXTRA TUBES BLUE BHIRnvdpht06/21/2025 6:24 AM EST EXTRA XZZDSBiqwhvt47/21/2025 6:24 AM EST STREP B RKCUGLMarcnki15/21/2025 2:20 AM EST CHLAMYDIA/GC BY PCR NORBERTO FFFSVwwbveh07/21/2025 2:20 AM EST MOLECULAR VAGINITIS PANEL UNVZmlqqpb24/21/2025 2:20 AM EST RESP PATHOGENS PANEL/IAFV-MQU-8Ggynvct60/21/2025 2:20 AM EST RUPTURE OF MEMBRANE (ALL)Wnijbvb5804/27/2025 1:43 AM EST ANTIBODY RPTgrzjvy90/21/2025 12:13 AM EST TYPE AND HLHNASZHEQ59/21/2025 12:13 AM EST HEPATITIS C VIRUS QUANTITATIVE BY NAATAdd-On04/27/2025 12:13 AM EST CBC WITH AUTO YHTWFBTDNTDFNRKM78/21/2025 12:13 AM EST COMPREHENSIVE METABOLIC ZKTFIHIHZ38/21/2025 12:13 AM EST SYPHILIS TOTAL(UNKNOWN SYPHILIS STATUS)STAT106/28/2024 12:13 AM EST EXTRA TUBES PST YWYFroxkbv40/21/2025 12:08 AM EST EXTRA TUBES BLUE KNBCnzppai92/21/2025 12:08 AM EST EXTRA JHJVGQfawlzj22/21/2025 12:08 AM EST US [facility] OB FOLLOW-UP, 1 ZBEQLAbvueyc57/08/2025 9:15 AM EST AMA (advanced maternal age) multigravida 35+, second trimester Dichorionic diamniotic twin in second trimester ULTRASOUND GAAAYOUovjfvq24/11/2025 11:14 AM ESTMR QOBCTOuziouo79/10/2025 11:19 AM ESTULTRASOUND AJQNBXNdhkxvi28/10/2025 11:07 AM ESTUS [facility] COMPREHENSIVE ANATOMIC HOETINIzwgepd55/04/2025 11:56 AM EST Screening, , for anatomic survey FREE CELL DNA (NON-[facility] SEND OUT)Omygadg2602/18/2025 11:39 AM EDTHIGH RISK HPV W/XICONzjmvth91/27/2025 1:50 PM EDT Screening for cervical cancer from Last 3 Months or Most Recently Relevant to Health Maintenance Results * (ABNORMAL) Urinalysis (04/27/2025 7:56 AM EST)ComponentValueRef RangeTest MethodAnalysis TimePerformed AtPathologist SignatureCOLORYellowYellow 04/27/2025 8:41 AM [facility] LABORATORYTURBIDITYClearClear 04/27/2025 8:41 AM [facility] LABORATORYSPECIFIC GRAVITY1.023 1.003 - 1.6814004/27/2025 8:41 AM [facility] LABORATORYNITRITE KotipfbgTpmyqxwx35/21/2025 8:41 AM [facility] PH,URINE6.55.0 - 8.512 8:41 AM [facility] LEUKOCYTE SUYKLUTCHjguefvyCiunefsa78/21/2025 8:41 AM [facility] LABORATORYPROTEINTrace(A)Nktzsllq40/21/2025 8:41 AM [facility] LABORATORYKETONES (URINE)10 mg/dL(A)Lckbcabw22/21/2025 8:41 AM EST [facility] LABORATORYUROBILINOGEN<1.1 eu/dL<1.1 eu/dL04/27/2025 8:41 AM [facility] LABORATORYBILIRUBIN (URINE)Negative Hwioasrm98/21/2025 8:41 AM [facility] LABORATORYBLOOD/HGB JxsvrticRrteortt43/21/2025 8:41 AM [facility] MUCOUSPresent(A)None04/27/2025 8:41 AM [facility] R.B.CELLS - 8:41 AM [facility] SQUAMOUS VYLLQQGFWJ29 - 8:41 AM [facility] LABORATORYW.B.CELLS - 8:41 AM [facility] LABORATORYGLUCOSE (URINE)MfoqrxraAomfnhgr70/21/2025 8:41 AM [facility] LABORATORYSpecimen (Source)Anatomical Location / Laterality Collection Method / VolumeCollection TimeReceived TimeUrineUrine / Unknown 04/27/2025 7:56 AM EST04/27/2025 8:24 AM EST Narrative Authorizing ProviderResult TypeResult StatusTannice Dionne QUINTEROS ORDERABLES Final ResultPerforming OrganizationAddressCity/State/ZIP CodePhone Number [facility] [address] [place] [address], [place] [phone] * Lactate w/ Reflex (04/27/2025 6:25 AM EST)ComponentValueRef RangeTest Method Analysis TimePerformed AtPathologist SignatureLACTATE W/REFLEX1.00.4 - 2.0 mmol/L106/28/2024 7:23 AM [facility] LABORATORYSpecimen (Source)Anatomical Location / LateralityCollection Method / VolumeCollection TimeReceived TimeBloodVenous blood / UnknownVenipuncture / Znqttdc1404/27/2025 6:25 AM EST04/27/2025 6:41 AM EST Narrative [facility] - 04/27/2025 7:23 AM EST Result did not trigger repeat Lactate, re-order if needed. Authorizing ProviderResult TypeResult StatusTannicdana HUNTER BLOOD ORDERABLESFinal ResultPerforming OrganizationAddressCity/State/ZIP CodePhone Number [facility] [address] [place] [address], * (ABNORMAL) CBC auto differential (04/27/2025 6:25 AM EST) Only the most recent of2 resultswithin the time period is included. ComponentValueRef RangeTest MethodAnalysis TimePerformed AtPathologist Signature WBC12.1(H)4 - 11 10^9/L106/28/2024 6:52 AM [facility] RBC Count3.823.8 - 5.2 10^12/L106/28/2024 6:52 AM [facility] FEWWXADFZWLeyobjlrqd01.3(L)11.7 - 15.5 g/dL04/27/2025 6:52 AM [facility] ZLOMSNLBFXLksvjrgaoe74.3(L)35 - 47 %04/27/2025 6:52 AM [facility] RDMPEXQNFIXFS9438 - 100 fL04/27/2025 6:52 AM [facility] FDTBJCYHPVEAH39.627 - 34 pg04/27/2025 6:52 AM [facility] WUVDRSVECDKCFX76.932 - 36 g/dL04/27/2025 6:52 AM [facility] ADXCRXOWIFRIT86.611.5 - 15 %04/27/2025 6:52 AM [facility] LABORATORYPlatelet Sqqih126501 - 450 10^04/27/2025 6:52 AM [facility] LABORATORYMPV8.37 - 12 fL04/27/2025 6:52 AM [facility] LABORATORYNeutrophils %89.5%04/27/2025 6:52 AM [facility] LABORATORYLymphocytes %8.6%04/27/2025 6:52 AM [facility] LABORATORYMonocytes %1.8%04/27/2025 6:52 AM [facility] LABORATORYEosinophils %0.1%04/27/2025 6:52 AM [facility] LABORATORYBasophils %0.0%04/27/2025 6:52 AM [facility] LABORATORYNeutrophils Absolute (A)10.8(H)1.5 - 6.6 10^04/27/2025 6:52 AM [facility] LABORATORYLymphocytes Absolute1.01.0 - 3.5 10^04/27/2025 6:52 AM [facility] LABORATORYMonocytes Absolute0.20.0 - 0.9 10^04/27/2025 6:52 AM [facility] LABORATORYEosinophils Absolute0.00.0 - 0.4 10^04/27/2025 6:52 AM [facility] LABORATORYBasophils Absolute0.00.0 - 0.2 10^04/27/2025 6:52 AM [facility] LABORATORYDifferential TypeAUTOMATED USZJECWWLMMS00/21/2025 6:52 AM [facility] LABORATORYSpecimen (Source)Anatomical Location / LateralityCollection Method / VolumeCollection TimeReceived TimeBloodVenous blood / UnknownVenipuncture / Ondwglo7704/27/2025 6:25 AM EST04/27/2025 6:42 AM EST Narrative Authorizing ProviderResult TypeResult StatusTansarwat Truong MDLAB BLOOD ORDERABLESFinal ResultPerforming OrganizationAddressCity/State/ZIP CodePhone Number [facility] [address] [place] [address], * Blood culture #2 (04/27/2025 6:25 AM EST) Only the most recent of2 resultswithin the time period is included. ComponentValueRef RangeTest MethodAnalysis TimePerformed AtPathologist Signature CULTURE RESULTSNO GROWTH 5 DAYS05/02/2025 10:01 AM [facility] LABORATORYSpecimen (Source)Anatomical Location / LateralityCollection Method / VolumeCollection TimeReceived TimeBloodVenous blood / UnknownVenipuncture / Tpkhrqq8004/27/2025 6:25 AM EST04/27/2025 9:31 AM EST Narrative [facility] - 05/02/2025 10:01 AM EST Suboptimal volume of blood collected, Results may be affected. Authorizing ProviderResult TypeResult StatusTansarwat Truong [facility] CENTERICROBIOLOGY - GENERAL ORDERABLESFinal ResultPerforming OrganizationAddressCity/State/ZIP Code Phone Number [facility] [address] [place] [address], * (ABNORMAL) Comprehensive metabolic panel (04/27/2025 6:25 AM EST) Only the most recent of2 resultswithin the time period is included. ComponentValueRef RangeTest MethodAnalysis TimePerformed AtPathologist Signature DEWQGS320730 - 146 mmol/L106/28/2024 7:18 AM [facility] LABORATORYPOTASSIUM3.93.5 - 5.0 mmol/L106/28/2024 7:18 AM [facility] ZDTXJZZWIHYCCCRHHF37675 - 109 mmol/L106/28/2024 7:18 AM [facility] LABORATORYCARBON BNJRTAH13(L)22 - 32 mmol/L106/28/2024 7:18 AM EST [facility] LABORATORYANION GAP85 - 15 mmol/L106/28/2024 7:18 AM EST [facility] LABORATORYBLOOD UREA FLWJIHQI92 - 23 mg/dL04/27/2025 7:18 AM [facility] LABORATORYCREATININE0.510.40 - 1.00 mg/dL 04/27/2025 7:18 AM [facility] LABORATORYComment:METHOD TRACEABLE TO IDSC VXRMLZBQWWMZRJW689(H)65 - 99 mg/dL04/27/2025 7:18 AM [facility] LABORATORYCALCIUM7.1(L)8.5 - 10.5 mg/dL04/27/2025 7:18 AM EST [facility] LABORATORYTOTAL PROTEIN6.06.0 - 8.0 g/dL04/27/2025 7:18 AM [facility] LABORATORYALBUMIN3.23.2 - 5.3 g/dL04/27/2025 7:18 AM [facility] LABORATORYALKALINE ZZVJRWOQEAS7750 - 130 U/L 04/27/2025 7:18 AM [facility] EAHLZSPLBEJMR54<=41 U/L106/28/2024 7:18 AM [facility] LABORATORYALT4<=31 U/L106/28/2024 7:18 AM [facility] LABORATORYBILIRUBIN,TOTAL0.2(L)0.3 - 1.2 mg/dL 04/27/2025 7:18 AM [facility] LABORATORYEGFR Non-Race Dependent >90>=60 ml/min/1.73sq.m106/28/2024 7:18 AM [facility] Comment: Reported eGFR is based on the CKD-EPI 2020 equation that does not use a race coefficient. Specimen (Source)Anatomical Location / LateralityCollection Method / Volume Collection TimeReceived TimeBloodVenous blood / UnknownVenipuncture / Unknown 04/27/2025 6:25 AM EST04/27/2025 6:42 AM EST Narrative Authorizing ProviderResult TypeResult StatusTannicdana HUNTER BLOOD ORDERABLESFinal ResultPerforming OrganizationAddressCity/State/ZIP CodePhone Number [facility] [address] [place] [address], * Light Blue Top (04/27/2025 6:24 AM EST) Only the most recent of2 resultswithin the time period is included. ComponentValueRef RangeTest MethodAnalysis TimePerformed AtPathologist Signature Extra TubeAuto Vkydtism34/21/2025 8:01 AM [facility] Specimen (Source)Anatomical Location / LateralityCollection Method / Volume Collection TimeReceived TimeBloodVenous blood / Zhdtjin8804/27/2025 6:24 AM EST 04/27/2025 6:42 AM EST Narrative Authorizing ProviderResult TypeResult StatusDavid Kya Cook MDLAB BLOOD ORDERABLESFinal ResultPerforming OrganizationAddressCity/State/ZIP CodePhone Number [facility] [address] [place] [address], * Molecular Vaginitis Panel PCR (04/27/2025 2:20 AM EST)ComponentValueRef Range Test MethodAnalysis TimePerformed AtPathologist SignatureBacterial Vaginosis DNANot DetectedNot Pvlqllxb69/21/2025 4:27 AM [facility] LABORATORYComment:Indicator DNA target(s) related to bacterial vaginosis organisms, which include: Atopobium vaginae,Atopobium novel species, Megasphaera-1, and Bacterial Vaginosis Associated Bacteria-2 (BVAB-2), is/are Not Detected.Abena species group DNANot DetectedNot Rxvixrmv27/21/2025 4:27 AM [facility]ATORYComment:Abena group (C. albicans and/or C. tropicalis and/or C. parapsilosis and/or C. dubliniensis) target DNA is Not Detected.Abena glabrata/krusei DNANot DetectedNot Gdlbufyd56/21/2025 4:27 AM [facility]ATORYComment:Abena glabrata and/or Abena krusei target DNA is Not Detected.Trichomonas VaginalisNot Detected Not Axthvnad39/21/2025 4:27 AM [facility]ATORYComment: Trichomonas vaginalis target DNA is Not Detected.Specimen (Source)Anatomical Location / LateralityCollection Method / VolumeCollection TimeReceived Time SwabVaginal structure / Smtjgxj7004/27/2025 2:20 AM EST04/27/2025 3:19 AM EST Narrative [facility] - 04/27/2025 4:27 AM EST Assay methodology is nucleic acid amplification by real-time PCR, performed on [employer] Instrument System. Authorizing ProviderResult TypeResult [facility] HospitalROBIOLOGY - GENERAL ORDERABLESFinal ResultPerforming OrganizationAddressCity/State/ZIP Code Phone Number [facility] [address] [place] [address], * Chlamydia/GC by PCR Norberto Swab (04/27/2025 2:20 AM EST)ComponentValueRef Range Test MethodAnalysis TimePerformed AtPathologist SignatureCHLAMYDIA DNA(PCR) ScjorpkyHjmglscy25/22/2025 10:39 AM [facility] Comment:Chlamydia trachomatis not detected by nucleic acid amplification. This does not exclude the possibility of infection because results are dependent on adequate specimen collection.GONORRHOEAE DNA(PCR)UyufviviCnbxwrhl13/22/2025 10:39 AM [facility]ATORYComment:Neisseria gonorrhoeae not detected by nucleic acid amplification. This does not exclude the possibil ity of infection because results are dependent on adequate specimen collection.Specimen (Source)Anatomical Location / LateralityCollection Method / VolumeCollection TimeReceived TimeSwabEndocervical structure / Unknown 04/27/2025 2:20 AM EST04/27/2025 3:19 AM EST Narrative Authorizing ProviderResult TypeResult [facility] - GENERAL ORDERABLESFinal ResultPerforming OrganizationAddressCity/State/ZIP Code Phone Number [facility] [address] [place] [address], [place] [phone] * Resp Pathogens Panel/SARS CoV-2 (04/27/2025 2:20 AM EST)ComponentValueRef RangeTest MethodAnalysis TimePerformed AtPathologist SignatureSARS COV 2 BY PCRNot DetectedNot Navsrbvz04/21/2025 4:21 AM [facility] LABORATORYADENOVIRUSNot DetectedNot Vhidwgoy88/21/2025 4:21 AM [facility] LABORATORYCORONAVIRUS 229ENot DetectedNot Fogzugde11/21/2025 4:21 AM [facility] LABORATORYCORONAVIRUS ZXX9Vrs DetectedNot Bxdpicpr58/21/2025 4:21 AM [facility]ATORYCORONAVIRUS ON49Tbi DetectedNot Fiuhbhem84/21/2025 4:21 AM [facility]ATORYCORONAVIRUS CJ09Nur DetectedNot Etoldlzb98/21/2025 4:21 AM [facility]ORATORYHUMAN METAPNEUVIRUSNot DetectedNot Detected 04/27/2025 4:21 AM [facility]ATORYRHINO/ENTEROVIRUSNot DetectedNot Hwfbiaaz16/21/2025 4:21 AM [facility] INFLUENZA ANot DetectedNot Jhtevvla11/21/2025 4:21 AM [facility] LABORATORYINFLUENZA BNot DetectedNot Xdqexeqo27/21/2025 4:21 AM [facility]ATORYPARAINFLUENZA 1Not DetectedNot Detected 04/27/2025 4:21 AM [facility] LABORATORYPARAINFLUENZA 2Not DetectedNot Hdtuybos25/21/2025 4:21 AM [facility] PARAINFLUENZA 3Not DetectedNot Ibgjqmyn68/21/2025 4:21 AM [facility] LABORATORYPARAINFLUENZA 4Not DetectedNot Cnhxkdzb84/21/2025 4:21 AM [facility]ATORYRESP SYNCYTIAL VIRUSNot DetectedNot Fevyscha99/21/2025 4:21 AM [facility]ORATORYBORD PARAPERTUSSISNot DetectedNot Bylgeaao23/21/2025 4:21 AM [facility]ORATORYBORDETELLA PERTUSSISNot DetectedNot Ddhnoqvg55/21/2025 4:21 AM [facility]ATORYCHLAM.PNEUMONIAENot DetectedNot Kfmxquph11/21/2025 4:21 AM [facility]ATORYMYCOPLASMA PNEUMONIAENot DetectedNot Obbmocvh38/21/2025 4:21 AM [facility] LABORATORYSpecimen (Source)Anatomical Location / LateralityCollection Method / VolumeCollection TimeReceived TimeSwabNasopharyngeal structure / Oeueajt6204/27/2025 2:20 AM EST04/27/2025 3:19 AM EST Narrative [facility] - 04/27/2025 4:21 AM EST [...] GENERAL ORDERABLESFinal ResultPerforming OrganizationAddressCity/State/ZIP Code Phone Number [facility] [address] [place] [address], * Strep B screen (04/27/2025 2:20 AM EST)ComponentValueRef RangeTest Method Analysis TimePerformed AtPathologist SignatureCULTURE RESULTSNEGATIVE FOR GROUP B STREPTOCOCCUS BY NUCLEIC ACID KAHQNDKGWQPPC14/22/2025 9:39 AM EST [facility] LABORATORYSpecimen (Source)Anatomical Location / LateralityCollection Method / VolumeCollection TimeReceived TimeSwab (Vagina/Rectum)04/27/2025 2:20 AM EST04/27/2025 3:19 AM EST Narrative Authorizing ProviderResult TypeResult StatusGaby Truong MDMICROBIOLOGY - GENERAL ORDERABLESFinal ResultPerforming OrganizationAddressCity/State/ZIP Code Phone Number [facility] [address] [place] [address], [place] [phone] * Rupture of membrane (ALL) (04/27/2025 1:43 AM EST)ComponentValueRef RangeTest MethodAnalysis TimePerformed AtPathologist SignatureRUPTURE OF UKMEITMCOmjjugbiMpoayoux15/21/2025 3:08 AM [facility] LABORATORYSpecimen (Source)Anatomical Location / LateralityCollection Method / VolumeCollection TimeReceived TimeSwabVaginal structure / Nktyxku6604/27/2025 1:43 AM EST04/27/2025 2:13 AM EST Narrative Authorizing ProviderResult TypeResult StatusGaby Truong MDBODY FLUIDS AND STOOLS ORDERABLESFinal ResultPerforming OrganizationAddressCity/State/ZIP Code Phone Number [facility] [address] [place] [address], [place] [phone] * Hepatitis C Virus Quantitative by NAAT (04/27/2025 12:13 AM EST)ComponentValue Ref RangeTest MethodAnalysis TimePerformed AtPathologist SignatureHCV InterpretationNot DetectedNot Viqjmtga48/22/2025 10:38 AM [facility]ORATORYSpecimen (Source)Anatomical Location / LateralityCollection Method / VolumeCollection TimeReceived TimeBloodVenous blood / Unknown Venipuncture / Dhsxxdr0404/27/2025 12:13 AM EST04/27/2025 12:25 AM EST Narrative Authorizing ProviderResult TypeResult StatusGaby Truong MDLAB BLOOD ORDERABLESFinal ResultPerforming OrganizationAddressCity/State/ZIP CodePhone Number [facility] [address] [place] [address], * Syphilis Total (Unknown Syphilis Status) (04/27/2025 12:13 AM EST)Component ValueRef RangeTest MethodAnalysis TimePerformed AtPathologist Signature SYPHILIS TOTAL<0.2<=0.8 AI04/27/2025 7:02 AM ESTPROT[facility] LABORATORYSpecimen (Source)Anatomical Location / LateralityCollection Method / VolumeCollection TimeReceived TimeBloodVenous blood / UnknownVenipuncture / Fhqagwl3804/27/2025 12:13 AM EST04/27/2025 12:25 AM EST Narrative [facility] - 04/27/2025 7:02 AM EST NON REACTIVE No serologic evidence of infection to Treponema pallidum. Repeat testing may be considered in patients with suspected acute or primary syphilis in 2 to 4 weeks. Authorizing ProviderResult TypeResult StatusTansarwat HUNTER BLOOD ORDERABLESFinal ResultPerforming OrganizationAddressCity/State/ZIP CodePhone Number [facility] [address] [place] [address], * Antibody ID (04/27/2025 12:13 AM EST)ComponentValueRef RangeTest Method Analysis TimePerformed AtPathologist SignatureAntibody IDPassive D Antibody, Patient Received RHIG04/27/2025 2:35 AM ESTTTH CARLOS CHAOSpecimen (Source) Anatomical Location / LateralityCollection Method / VolumeCollection Time Received TimeBloodVenous blood / UnknownVenipuncture / Iucawlq4304/27/2025 12:13 AM EST04/27/2025 12:19 AM EST Narrative Authorizing ProviderResult TypeResult StatusTansarwat FIGUEROAOOD BANK TEST ORDERABLESFinal ResultPerforming OrganizationAddressCity/State/ZIP CodePhone Number [facility] [address] [place] [address], * Type and screen (04/27/2025 12:13 AM EST)ComponentValueRef RangeTest Method Analysis TimePerformed AtPathologist ThamakqkgZERC06/21/2025 2:18 AM ESTTTH BB - ZASHEOXOBHphzcvax56/21/2025 2:18 AM ESTTTH BB - WELLSKYAntibody Screen Ipawvjfi84/21/2025 2:18 AM ESTTTH BB - WELLSKYSpecimen (Source)Anatomical Location / LateralityCollection Method / VolumeCollection TimeReceived Time BloodVenous blood / UnknownVenipuncture / Qvafbmj2604/27/2025 12:13 AM EST 04/27/2025 12:19 AM EST Narrative Authorizing ProviderResult TypeResult StatusTannicdana Truong MDBLOOD BANK TEST ORDERABLESEdited Result - FinalPerforming OrganizationAddressCity/State/ZIP Code Phone Number [facility] [address] [place] [address], [place] * PST TOP (04/27/2025 12:08 AM EST)ComponentValueRef RangeTest MethodAnalysis TimePerformed AtPathologist SignatureExtra TubeAuto Dcvdqkwt45/21/2025 2:02 AM ESTPROT[facility] LABORATORYSpecimen (Source)Anatomical Location / LateralityCollection Method / VolumeCollection TimeReceived TimeBloodVenous blood / Fnyvwqd8904/27/2025 12:08 AM EST04/27/2025 12:26 AM EST Narrative Authorizing ProviderResult TypeResult StatusDaviyamilka Cook MDLAB BLOOD ORDERABLESFinal ResultPerforming OrganizationAddressCity/State/ZIP CodePhone Number [facility] [address] [place] [address], [place] [phone] * [facility] OB FOLLOW-UP, 1 FETUS (04/14/2025 9:15 AM EST) Only the most recent of2 resultswithin the time period is included. Anatomical RegionLateralityModalityOB-GYNUltrasoundSpecimen (Source)Anatomical Location / LateralityCollection Method / VolumeCollection TimeReceived Time 04/14/2025 8:13 AM EST Narrative 04/14/2025 9:33 AM EST NAME: ??DESMOND GUTIERREZ : 1990 SEX: F Accession Number: [id number] ORDERING PHYSICIAN: ABIOLA CHRIS REFERRING PHYSICIAN: ABIOLA CHRIS Coding Procedures ? 22505: Ultrasound, uterus, real time with image documentation, [...] (oz) ? 5 oz EFW by: ?Hadlock (JHY-OR-UA-FL) Extended Tibia ??44.5 mm 27w 3d 67% Bibiana Accident Report Clerk ? 3.3 mm CM ? 8.8 mm [...] view. RVOT view. LVOT view. 3-vessel view. 2-fdyfqw-nnnbvpg view. Situs. Aortic arch view. ? Bicaval [...] GUTIERREZ : 1990 SEX: F Accession Number: [id number] ORDERING PHYSICIAN: ABIOLA CHRIS REFERRING PHYSICIAN: ABIOLA CHRIS Coding Procedures 41557: Ultrasound, uterus, real time with image documentation, [...] EFW (oz) 5 oz EFW by: Hadlock (DDQ-SH-TG-FL) Extended Tibia 44.5 mm 27w 3d 67% Bibiana Accident Report Clerk 3.3 mm CM 8.8 mm 95% Nicolaides [...] view. RVOT view. LVOT view. 3-vessel view. 4-hbrfia-hniwwol view. Situs. Aortic arch view. Bicaval view. [...] TimePerformed AtPathologist SignatureHPV 16NegativeNegative 10/02/2024 2:06 PM [facility]ATORYHPV 18Negative Mtletldm32/28/2025 2:06 PM [facility] LABORATORYOTHER HIGH RISK QDNSqdgrseaQozjebwh96/28/2025 2:06 PM [facility]ATORYComment:HPV types 31, 33, 35, 39, 45, 52, 56, 58, 59, 66, and 68 DNA were undetectable.Specimen (Source)Anatomical Location / LateralityCollection Method / VolumeCollection TimeReceived TimeThinPrep cytology technique (qualifier value)Cervix uteri structure / Migfuwq4310/01/2024 1:50 PM EDT 10/02/2024 3:04 AM EDT Narrative Authorizing ProviderResult TypeResult StatusIvory Du SOFTWARE QUALITY AUTOMATION ENGINEER-CNMLAB BLOOD ORDERABLESFinal ResultPerforming OrganizationAddressCity/State/ZIP CodePhone Number [facility] [address] [place] [address], from Last 3 Months or Most Recently Relevant to Health Maintenance Insurance Advance Directives * Full Code (Latest Code Status on File) Date ActivatedDate UgzzpathpnmBfruduac78/21/2025 12:01 AM04/28/2025 1:30 AM * Full Code Date ActivatedDate HbiiizssnikBghuynno12/19/2024 10:52 PM03/28/2024 11:13 PM * Full Code Date ActivatedDate InactivatedComments12/08/2017 8:05 AM12/10/2017 9:50 AM * Full Code Date ActivatedDate InactivatedComments12/01/2017 8:08 AM12/02/2017 12:35 PM Care Teams Team MemberRelationshipSpecialtyStart DateEnd Date Rebecca Rizvi APRN-JEYSON [address] [place] [address] PCP - GeneralNurse Practitioner08/23/22
--- OUTSIDE RECORDS SUMMARY | 2025-05-07 11:54 | XMS_ITS | Encounter Summary ---
Author Organization [facility] Address [address] [place] [address] Care Team Providers Care Non Licensed Nuclear Equipment Operator Name Role Phone Rebecca Rizvi MD Primary Care Provider [phone] Encounter Details DateTypeDepartmentCare Team (Latest Contact Info)Fmjrxhfhmug76/23/2025Telephone [facility] [address] [place] [phone] Sosa Funes MA [address] [place] [address] Social History Tobacco UseTypesPacks/DayYears UsedDateSmoking Tobacco: Never Assessed Estimated Date of VaqslksoWdogkzmaSdk42/11/2026Based on UltrasoundSex and Gender InformationValueDate RecordedSex Assigned [...] his patients and I will let our safety security officer know.Pt said ahclaudette yeah. And hung up. I went and advised Evelyn Kee LPN safety security officer know of how thispatient spoke and her demands. (Patient every times she calls when I am in the triage is a very rude and disrespectful patient.) documented in this encounter Plan of Treatment DateTypeDepartmentCare Team (Latest Contact Info)Xxwsyoooavb26/14/2026 3:50 PM ESTRoutine [facility] [address] [place] [phone] Rene Hayden DO [address] [place] [address] documented as of this encounter Visit Diagnoses Not on filedocumented in this encounter Care Teams Team MemberRelationshipSpecialtyStart DateEnd Date Rebecca Rizvi MD [address] [place] [phone] PCP - GeneralFamily Medicine01/03/25documented as of this encounter
--- OUTSIDE RECORDS SUMMARY | 2025-05-07 11:54 | XMS_ITS ---
Author Organization [facility] tem Address [id number] [place] [address] Care Team Providers Care Tag Machine Operator Name Role Phone Rebecca Rizvi APRN-JEYSON Primary Care Provider Transitional Care Management Status:Closed (Closed) Start date:04/27/2025 Enrollment date:04/27/2025 End date:04/28/2025 Close reason:Does not meet criteria Continued Care and Services Coordination
--- OUTSIDE RECORDS SUMMARY | 2025-05-07 11:54 | XMS_ITS | Encounter Summary ---
Author Organization [facility] Address [address] [place] [address] Care Team Providers Care Balance Truing Inspector Name Role Phone Rebecca Rizvi MD Primary Care Provider [phone] Encounter Details DateTypeDepartmentCare Team (Latest Contact Info)Ivbvajmipfz89/20/2025linisync Result Encounter [facility] Unsolicited Mamadou Hayden, DO [address] [place], [place] [id number] Social History Tobacco UseTypesPacks/DayYears UsedDateSmoking Tobacco: Never Assessed Estimated Date of DzsjmhhyGzddjvdoRhc00/11/2026Based on UltrasoundSex and Gender InformationValueDate RecordedSex Assigned at BirthNot on fileLegal SexFemale 07/20/2022 6:43 PM EDTGender IdentityNot on fileSexual OrientationNot on file documented as of this encounter Plan of Treatment DateTypeDepartmentCare Team (Latest Contact Info)Ydzebfbpaql14/14/2026 3:50 PM ESTRoutine [facility] [address] [place] [address] Mamadou Hayden DO [address] [place], [place] [phone] documented as of this encounter Procedures Procedure NamePriorityDate/TimeAssociated DiagnosisCommentsUS OB CERVICAL LENGTH 04/26/2025 5:17 PM EST documented in this encounter Results * US OB CERVICAL LENGTH (04/26/2025 5:17 PM EST)Anatomical RegionLaterality ModalityOtherSpecimen (Source)Anatomical Location / LateralityCollection Method / VolumeCollection TimeReceived Time04/26/2025 5:17 PM EST Narrative 04/26/2025 5:20 PM EST [facility] ?[address] ? [place] [address] ? Ultrasound Report ? Signed ? Patient: ELMES,ESE N ?MR#: [id number] ?? : 1990 ?Acct:[id number] ?? Age/Sex: 34 / F ?ADM Date: 04/26/25 ?? Loc: [facility] ??250-1 ? Attending Dr: Mamadou Hayden D.O. ? Ordering Physician: Mamadou Hayden D.O. ?? Date of Service: 04/26/25 ?? Procedure(s): US OB cervical length ?? Accession Number(s): [id number] ? cc: Mamadou Hayden D.O.; Rebecca Rizvi LANDSCAPE DESIGNER ? [facility] ? [address] ? [place] [address] ? Patient Name: ?? ESE BADILLO ? MRN: [facility]:[id number] ? date: 1990 ?Sex: F ?? Assigned Patient Location: [facility] ?? Current Patient Location: [facility] ?? Accession/Order Number: [id number] ?? Exam Date: 04/26/2025 ??16:20 ?Report Date: [...] Dictation Location: RADIO-PC-18 ? Electronically authenticated by: [id number] ??Y ?? Date: 04/26/2025 ??17:17 ? Dictated By: ?Howard Huang M.D. ? Signed By: ?12/20/25 1720 ? DD/ 1717 ? TD/TT: ? Office Worker: Procedure Note Radiology, Radiologist, - 04/26/2025 [place] [address] Ultrasound Report Signed Patient: ESE BADILLO NMR#: [id number] : 1990Acct:[id number] Age/Sex: 34 / FADM Date: 04/26/25 Loc: [facility] 250-[address]: Mamadou Hayden D.O. Ordering Physician: Mamadou Hayden D.O. Date of Service: 04/26/25 Procedure(s): US OB cervical length Accession Number(s): [id number] cc: Mamadou Hayden D.O.; Reebcca Rizvi The [place] [address] Patient Name: ESE BADILLO MRN: [id number] date: 1990 Sex: F Assigned Patient Location: [facility] Current Patient Location: [facility] Accession/Order Number: [id number] Exam Date: 04/26/2025 16:20 Report Date: 04/26/2025 [...] Jr., D.O. 04/26/2025 5:17 PM Dictation Location: [place] [address] Electronically authenticated by: [id number] Y Date: 7:17 Dictated By: Howard Huang M.D. Signed By:04/26/25 1720 DD/ 16 TD/TT: Office Worker: Authorizing ProviderResult TypeResult StatusCorey Jackelyn DOCLINISYNC IMAGINGFinal Result documented in this encounter Visit Diagnoses Not on filedocumented in this encounter Care Teams Team MemberRelationshipSpecialtyStart DateEnd Date Rebecca Rizvi MD [address] [place] [phone] PCP - GeneralFamily Medicine01/03/25documented as of this encounter
--- OUTSIDE RECORDS SUMMARY | 2025-05-07 11:54 | XMS_ITS | Encounter Summary ---
Author Organization [facility] Address [address] [place] [address] Care Team Providers Care Doughnut Machine Operator Name Role Phone Rebecca Rizvi MD Primary Care Provider [phone] Encounter Details DateTypeDepartmentCare Team (Latest Contact Info)Jmxzjzyurdj92/23/2025Telephone [facility] [address] [place] [address] Evelyn Kee LPN Social History Tobacco UseTypesPacks/DayYears UsedDateSmoking Tobacco: Never Assessed Estimated Date of EneuxncfPagbwhpmAob40/11/2026Based on UltrasoundSex and Gender InformationValueDate RecordedSex Assigned at BirthNot on fileLegal SexFemale 07/20/2022 6:43 PM EDTGender IdentityNot on fileSexual OrientationNot on file documented as of this encounter Miscellaneous Notes * Telephone Encounter - Evelyn Kee LPN - 04/29/2025 10:02 AM EST 10:02am Called patient as she had called office yesterday and today inquiring about plan of care. Patient voiced that she did leave [facility] AMA due to having other children [...] that STAT referral would be made to [facility] and that NST/BPP orders would be sent to [facility] if she was unable to schedule with them prior to needing more monitoring. Called and spoke with Gena @ [facility] to inform her of orders and history of patient. Information will also be sent for [facility] in regards to medical history for continuation of care. Sent patient JobTalentshart Message with information. Patient to reach out to office with any questions/concerns. Evelyn Brannon LPN documented in this encounter Plan of Treatment DateTypeDepartmentCare Team (Latest Contact Info)Oozvvcrybur48/14/2026 3:50 PM ESTRoutine [facility] [address] [phone] Rene Hayden, [address] [place] [address] NameTypePriorityAssociated DiagnosesOrder ScheduleUS biophysical profile w non [...] MemberRelationshipSpecialtyStart DateEnd Date Rebecca Rizvi MD [address] [place] [phone] PCP - GeneralFamily Medicine01/03/25documented as of this encounter
--- OUTSIDE RECORDS SUMMARY | 2025-05-07 11:54 | XMS_ITS | Encounter Summary ---
Author Organization [employer] tem Address [id number] [place] [address] Care Team Providers Care Post Anesthesia Room Nurse Name Role Phone Rebecca Rizvi BLANCA-SENIOR SYSTEMS ENGINEER Primary Care Provider Encounter Details DateTypeDepartmentCare Team (Latest Contact Info)Kfxqvepvbdu34/21/2025Travel Social History Tobacco UseTypesPacks/DayYears UsedDateSmoking Tobacco: FormerCigarettes0.58.1 Started: 04/05/2017Smokeless Tobacco: NeverAlcohol UseStandard Drinks/Week CommentsNot Currently3 (1 standard drink = 0.6 oz pure alcohol)occasionalAHC UtilitiesAnswerDate RecordedIn the past 12 months has the electric, gas, oil, or water [employer] threatened to shut off services in your home?No03/28/2024Overall Financial Resource Strain (CARDIA)AnswerDate RecordedHow hard is it for you to pay for the very basics like food, housing, medical care, and heating?Not hard at all05/07/2024HQ-2AnswerDate RecordedTotal Spipw176PRAPARE - TransportationAnswerDate RecordedIn the past 12 months, has lack of transportation kept you from medical appointments or from getting medications?No 03/28/2024In the past 12 months, has lack of transportation kept you from meetings, work, or from getting things needed for daily living?No03/28/2024 [place] Depression ScaleAnswerDate RecordedEdinburgh Depression Scale Oiafs960The thought of harming myself has occurred to [...] a household?No03/28/2024hildcare AnswerDate RecordedDo problems getting child & adolescent psychiatrist make it difficult for you to work or study?No05/07/2024EmploymentAnswerDate RecordedEmploymentUnknown 10/15/2018Hunger ScreeningAnswerDate RecordedWithin the past 12 months we worried whether our food would run out before we got money to buy more.Never True03/11/2025Within the past 12 months the food we bought just didn't last and we didn't have money to get more.Never True03/11/2025Purpose - LifeAnswerDate RecordedPurpose and direction in wapdJvrpjlb13/10/2021Estimated Date of StvnnhxmMqxuivymZoh65/11/2026Based on UltrasoundSex and Gender InformationValue Date RecordedSex Assigned at VxpueXjknfa73/02/2022 7:15 PM EDTLegal SexFemale 12/09/2014 2:44 PM EDTGender CjinubnqKphgxb66/02/2022 7:15 PM EDTSexual LdzgulkbiulUbrzwuox83/02/2022 7:15 PM EDTdocumented as of this encounter Plan of Treatment DateTypeDepartmentCare Team (Latest Contact Info)Lfsjjykgzfv52/08/2026 8:30 AM ESTAppointment [facility] Imaging [address] [place] [phone] 05/15/2025 9:30 AM [facility]In[facility] [address] [place] [phone] Florecita Bergeron MD [address] [place] [address] 05/15/2025 11:00 AM ESTOffice Visit Maternal- Medicine at [facility] [address] [place] [phone] Charlene Lees MD [address] [facility], [address] [place] [phone] 11/04/2025 4:00 PM EDTOffice Visit [facility] [address] [place] [phone] Rebecca Rizvi APRN-CNP [address] [place] [phone] documented as of this encounter Visit Diagnoses Not on filedocumented in this encounter Additional Health Concerns InfectionOnset DateLast IndicatedResolved TimeRespiratory Rule-Out04/27/2025 4:21 AM ESTAssessmentNoted TimePHQ-9 Depression Total Score: 3:04 PM EDTA Body Mass Index follow-up plan has been documented for the gtifege0409/11/2018 4:32 PM EDTdocumented as of this encounter Care Teams Team MemberRelationshipSpecialtyStart DateEnd Date Rebecca Rizvi APRN-CNP [address] [place] [phone] PCP - GeneralNurse Practitioner08/23/22documented as of this encounter
--- OUTSIDE RECORDS SUMMARY | 2025-05-07 11:55 | XMS_ITS | Encounter Summary ---
Author Organization [facility] Address [address] [place] [address] Care Team Providers Care Neon Glass Bender Name Role Phone Rebecca Rizvi MD Primary Care Provider [phone] Encounter Details DateTypeDepartmentCare Team (Latest Contact Info)Brczwksonjm08/29/2025linisync Result Encounter [facility] Unsolicited Mamadou Hayden, DO [address] [place], [place] [phone] Social History Tobacco UseTypesPacks/DayYears UsedDateSmoking Tobacco: Never Assessed Estimated Date of BggfciyeOhudxhyiUqz79/11/2026Based on UltrasoundSex and Gender InformationValueDate RecordedSex Assigned at BirthNot on fileLegal SexFemale 07/20/2022 6:43 PM EDTGender IdentityNot on fileSexual OrientationNot on file documented as of this encounter Plan of Treatment DateTypeDepartmentCare Team (Latest Contact Info)Islyejpwzfx73/14/2026 3:50 PM ESTRoutine [facility] [address] [place] [phone] Mamadou Hayden, DO [address] [place], [place] [phone] documented as of this encounter Procedures Procedure NamePriorityDate/TimeAssociated DiagnosisCommentsUS OB BPP W NON-YROYFT8005/05/2025 1:14 PM EST documented in this encounter Results * US OB BPP W NON-STRESS (05/05/2025 1:14 PM EST)Anatomical Region LateralityModalityOtherSpecimen (Source)Anatomical Location / Laterality Collection Method / VolumeCollection TimeReceived Time05/05/2025 1:14 PM EST Narrative 05/05/2025 1:16 PM EST [facility] ?[address] ? [place], [facility] ? Ultrasound Report ? Signed ? Patient: ELMES,ESE N ?MR#: [id number] ?? : 1990 ?Acct:[id number] ?? Age/Sex: 34 / F ?ADM Date: 05/05/25 ?? Loc: US ? Attending Dr: Mamadou Hayden D.O. ? Ordering Physician: Mamadou Hayden D.O. ?? Date of Service: 05/05/25 ?? Procedure(s): US OB BPP w non-stress ?? Accession Number(s): [id number] ? cc: Mamadou Hayden D.O.; Rebecca Rizvi FOOT TENDER ? [facility] ? [address] ? [place] [address] ? Patient Name: ?? ESE Brigette DESMOND ? MRN: [facility]:[id number] ? date: 1990 ?Sex: F ?? Assigned Patient Location: ?? Current Patient Location: ? Accession/Order Number: [id number] ?? Exam Date: 05/05/2025 ??11:56 ?Report Date: 05/05/2025 ??13:14 ? At the request of: ?? MAMADOU ??JACKELYN ??DO ? Procedure: ??US OB BPP w non-stress ? BIOPHYSICAL PROFILE: ? CLINICAL INFORMATION: Twin following selective reduction ? COMPARISON: 05/02/2025 ? 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 ?? Twin B is in cephalic presentation. ??The reported gestational age is 29 weeks ?? 5 days. ??The heart rate measures 165 beats per minute. ? FINDINGS: ? TONE: [...] 2 cm ? [Y] ? 2/2 ?PAMELA: 13.6 cm ? Total score: ? 8/8 ? US/US OB BPP w non-stress ?? IMPRESSION: ? NORMAL BIOPHYSICAL PROFILE FOR FETUS B. ? Impression dictated by: Malena Salcido M.D. ??05/05/2025 1:14 PM ? Dictation Location: RADIO-PC-30 ? Electronically authenticated by: [id number] ??Y ?? Date: 05/05/2025 ??13:14 ? Dictated By: ?Malena Salcido M.D. ? Signed By: ?12/29/25 1316 ? DD/ 1314 ? TD/TT: ? Remote Encoding Center Manager: Procedure Note Radiology, Radiologist, - 05/05/2025 [place] [address] Ultrasound Report Signed Patient: ESE BADILLO NMR#: [id number] : 1990Acct:[id number] Age/Sex: 34 / FADM Date: 05/05/25 Loc: US Attending Dr: Mamadou Hayden D.O. Ordering Physician: Mamadou Hayden D.O. Date of Service: 05/05/25 Procedure(s): US OB BPP w non-stress Accession Number(s): [id number] cc: Mamadou Hayden D.O.; Rebecca Rizvi FOOT TENDER The [place] [id number] Patient Name: ESE BADILLO MRN: [id number] date: 1990 Sex: F Assigned Patient Location: US Current Patient Location: Accession/Order Number: [id number] Exam Date: 05/05/2025 11:56 Report Date: 05/05/2025 13:14 At the request of: MAMADOU HAYDEN DO Procedure: US OB BPP w non-stress BIOPHYSICAL PROFILE: CLINICAL INFORMATION: Twin following selective reduction COMPARISON: 05/02/2025 There is redemonstration of a twin with selective demise of twinA . Twin B is in cephalic presentation. The reported gestational age is 29weeks 5 days. The heart rate measures 165 beats per minute. FINDINGS: TONE: 1 or [...] greater than 2 cm [Y] 2/2 PAMELA: 13.6 cm Total score: 8/8 US/US OB BPP w non-stress IMPRESSION: NORMAL BIOPHYSICAL PROFILE FOR FETUS B. Impression dictated by: Malena Salcido M.D. 05/05/2025 1:14 PM Dictation Location: [employer] Electronically authenticated by: [id number] Y Date: :14 Dictated By: Malena Salcido M.D. Signed By:05/05/25 1316 DD/ 13 TD/TT: Remote Encoding Center Manager: Authorizing ProviderResult TypeResult StatusCorey Jackelyn DOCLINISYNC IMAGINGFinal Result documented in this encounter Visit Diagnoses Not on filedocumented in this encounter Care Teams Team MemberRelationshipSpecialtyStart DateEnd Date Rebecca Rizvi MD [address] [place] [phone] PCP - GeneralFamily Medicine01/03/25documented as of this encounter
--- OUTSIDE RECORDS SUMMARY | 2025-05-07 11:55 | XMS_ITS | Clinical Summary ---
Author Organization [facility] Healthcare Address [address] [place] [address] Care Team Providers Care Economic Historian Name Role Phone Rebecca Rizvi MD Primary Care Provider [phone] Allergies No known active allergies Medications MedicationSigDispense QuantityRefillsLast FilledStart DateEnd DateStatus biotin 5 MG capsule Take 5 mg by mouth in the morning.5Active Docusate Sodium (DSS) 100 MG capsule Indications:Constipation during in second trimester ([facility])Take 1 capsule (100 mg) by mouth in the morning and 1 capsule (100 mg) before bedtime. 60 capsule 5Active Vit-Fe Fumarate-FA ( Vitamins) 28-0.8 MG tablet Indications:Positive urine test ([facility]),, unspecified gestational age ([facility]),Encounter for supervision of normal first in first trimester ([facility])Take 1 tablet by mouth Daily 30 tablet 5Active acetaminophen (Tylenol) 160 MG/5ML liquid Indications:Nonintractable headache, unspecified chronicity pattern, unspecified headache typeTAKE 20.3 ML BY MOUTH EVERY 6 HOURS NEEDED FOR HEADACHES FOR UP TO 10 DAYS Strength: 160 MG/5ML 120 mL 5Active famotidine (Pepcid) 20 MG tablet Indications:Heartburn during in second trimester ([facility])Take 2 tablets (40 mg) by mouth in the morning. 60 tablet 6Active famotidine (Pepcid) 20 MG tablet Indications:Heartburn during in second trimester ([facility])Take 1 tablet (20 mg) by mouth in [...] MG tablet Indications:Heartburn during in second trimester ([facility])Take 2 tablets (40 mg) by mouth in the morning. 60 tablet Discontinued(Reorder) Active Problems ProblemNoted DateDiagnosed TpthXkujgf51/31/2025History of hepatitis 05/07/2025 Twin gestation in third trimester ([facility])05/07/2025Multigravida of advanced maternal age in second trimester ([facility])03/13/2025H/O LEEP105/13/2024HSV (herpes simplex virus) bzawiwixh73/06/2025arrier of genetic defect for dtiqokrxsslr29/06/2025Twin gestation in second trimester ([facility])03/13/2025 Estimated Date of StxtryyvAcxsmlpqUga87/11/2026Based on Ultrasound Encounters DateTypeDepartmentCare RiuvZbkndpkbtab06/31/2025 10:20 AM ESTRoutine [facility] [place] [facility] [address] [place] [address] [place] [address] Jaylin Chung NP Third trimester ([facility]); 30 weeks gestation of ([facility]); H/O LEEP; Multigravida of advanced maternal age in second trimester (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; Anemia, unspecified type; History of hepatitis C; Twin gestation in third trimester, unspecified multiple gestation type ([facility]) 05/07/2025amboo flowsheet [facility] [place] [facility] [address] [place] [address] Jaylin Chung NP 05/05/2025linisync Result Encounter NOMS External Department Unsolicited Jackelyn, Mamadou, DO 5Clinisync Result Encounter NOMS External Department Unsolicited Jackelyn, Mamadou, DO 5Clinisync Result Encounter NOMS External Department Unsolicited Jackelyn, Mamadou, DO 04/29/2025Telephone [facility] [place] [facility] [address] [place] [address] Evelyn Kee LPN 04/29/2025Telephone [facility] [place] [facility] [address] [place] [address] Sosa Funes MA 04/26/2025linisync Result Encounter NOMS External Department Unsolicited Jackelyn, Mamadou, DO 04/26/2025linisync Result Encounter NOMS External Department Unsolicited Jackelyn, Mamadou, DO 04/26/2025linisync Result Encounter NOMS External Department Unsolicited Jackelyn, Mamadou, DO 04/23/2025 1:40 PM ESTRoutine [facility] [place] [facility] [address] [place] [address] Jackelyn, Mamadou, DO Third trimester ([facility]); 28 weeks gestation of ([facility]); Multigravida of advanced maternal age in second trimester ([facility]); Twin following selective reduction, antepartum ([facility]) 04/23/2025amboo flowsheet [facility] [place] [facility] [address] [place] [address] Mamadou Hayden, DO 04/16/2025Telephone [facility] [place] [facility] [address] [place] [address] Marin Sosa, MA 04/15/2025Refill [facility] [place] [facility] [address] [facility] [place] [address] Marin Sosa, MA Heartburn during in second trimester ([facility])04/14/2025Telephone [facility] [place] [facility] [address] [facility] [place] [address] Janett Zheng PA 04/10/2025 1:30 PM ESTRoutine [facility] [place] [facility] [address] [facility] [place] [phone] Janett Zheng PA Second trimester ([facility]); 26 weeks gestation of ([facility])04/10/2025linisync Result Encounter NOMS External Department Unsolicited Mamadou Hayden DO 5Bamboo flowsheet [facility] [place] [facility] [address] [facility] [place] [address] Janett Zheng PA 04/08/2025Telephone [facility] [place] [facility] [address] [facility] [place] [address] Evelyn Kee LPN 03/18/2025bstract [facility] [address] [place] [address] Janett Limon LPN 03/13/2025 9:50 AM ESTRoutine [facility] [place] [facility] [address] [facility] [place] [address] Mamadou Hayden DO Second trimester ([facility]); 22 weeks gestation of (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); Twin gestation in second trimester, unspecified multiple gestation type ([facility]); Diabetes mellitus screening; Screen for STD (sexually transmitted disease)03/13/2025Patient Outreach [facility] [address] [place] [address] Janett Limon LPN 03/13/2025amboo flowsheet [facility] [place] [facility] [address] [facility] [place] [address] Mamadou Hayden, DO 5Abstract [facility] [place] [facility] [address] [facility] [address] Mamadou Hayden, DO 03/11/2025External Result Encounter [facility] [place] [facility] [address] [facility] [place] [address] Mamadou Hayden, DO 5Clinisync Result Encounter NOMS External Department Unsolicited Mamadou Hayden, DO 02/20/2025Refill [facility] [place] [facility] [address] [facility] [place] [address] Janett Zheng, MARY Nonintractable headache, unspecified chronicity pattern, unspecified headache type02/20/2025Telephone [facility] [place] [facility] [address] [facility] [place] [address] Mamadou Hayden, DO 02/19/2025bstract [facility] [place] [facility] [address] [facility] [place] [address] Mamadou Hayden, DO 02/19/2025bstract [facility] [place] [facility] [address] [facility] [place] [address] Mamadou Hayden, DO 02/12/2025 3:20 PM EDTRoutine [facility] [place] [facility] [address] [facility] [place] [address] Jaylin Chung, NATHANIEL Second trimester ([facility]); 18 weeks gestation of ([facility])10/08/2025Clinisync Result Encounter NOMS External Department Unsolicited Mamadou Hayden DO 02/12/2025amboo flowsheet [facility] [place] [facility] [address] [facility] [place] [address] Jaylin Chung NP 02/10/2025Telephone [facility] [place] [address] [facility] [place] [address] Sosa Funes MA from Last 3 Months Social History Tobacco UseTypesPacks/DayYears UsedDateSmoking Tobacco: Never Assessed Estimated Date of UwjkftqsPsyvjyzyIto46/11/2026ased on UltrasoundSex and Gender InformationValueDate RecordedSex Assigned at BirthNot on fileLegal SexFemale 07/20/2022 6:43 PM EDTGender IdentityNot on fileSexual OrientationNot on file Last Filed Vital Signs Vital SignReadingTime TakenCommentsBlood Hpnhrdrx751/7205/07/2025 11:26 AM EST Pulse--Temperature--Respiratory Rate--Oxygen Saturation--Inhaled Oxygen Concentration--Ulsyiu82.5 kg (184 lb)05/07/2025 11:26 AM ESTHeight--Body Mass Index-- Plan of Treatment DateTypeDepartmentCare Team (Latest Contact Info)Izxxrljgwzh12/14/2026 3:50 PM ESTRoutine [facility] [place] [facility] [address] [facility] [place] [address] Mamadou Hayden, [address] [facility] [place] [address] Procedures Procedure NamePriorityDate/TimeAssociated DiagnosisCommentsPOCT URINALYSIS KQVEPHFHRuowukg50/31/2025 11:26 AM EST Third trimester ([facility]) US OB BPP W NON-CSVMFJ0205/05/2025 1:14 PM EST US OB BPP W NON-JAQGVW3205/02/2025 11:25 AM EST US OB BPP W NON-RNZRUY8604/30/2025 12:06 PM EST ALL CBC WITH AUTO FYJLLdbsove27/20/2025 6:50 PM EST US OB YJVZMTBQ26/20/2025 5:17 PM EST US OB CERVICAL LQMJCR9604/26/2025 5:17 PM EST MXHAIMXAIatcikt02/20/2025 3:25 PM EST [facility] UA (CLEAN/CATCH) REPORTING LEAD/MICRO IF IND.Gpbizfa3704/26/2025 3:25 PM EST POCT URINALYSIS PQJHHMOIVkzzfqz08/17/2025 2:02 PM EST 28 weeks gestation of ([facility]) GLUCOSE 1 LFYEKefykjv16/04/2025 1:29 PM EST ALL CBC WITH AUTO BLARHbxcvmc68/04/2025 1:29 PM EST RECURRENT VAGINITIS (HTRX)Xpvgkty5203/13/2025 11:37 AM EST POCT URINALYSIS ZJNVGNOUKiaizpo65/06/2025 10:18 AM EST Second trimester ([facility]) US OB 14+ WEEKS ANATOMY SCAN03/11/2025 3:30 PM EST ALL MISCELLANEOUS LMLGXenoslu63/28/2025 12:49 PM EDT ALL VITAMIN A8Nofapzd05/08/2025 5:26 PM EDT AFP, SERUM, OPEN SPINA RYBLSKBpsfaqu71/08/2025 5:26 PM EDT BOX ZNIHAmuooxe96/08/2025 5:26 PM EDT from Last 3 Months Results * (ABNORMAL) POCT urinalysis dipstick manually resulted (05/07/2025 11:26 AM EST) Only the most recent of3 resultswithin the time period is included. ComponentValueRef RangeTest MethodAnalysis TimePerformed AtPathologist Signature Color, UAYellowClarity, UAClearGlucose, UANegativeNegative - 2000(110) ++++ mg/dLBilirubin, UANegativeNegative - 4(70) +++ mg/dLKetones, UANegativeNegative - 160(16) ++++ mg/dLSpec Grav, UA1.0151 - 1.03Blood, UANegativeNegative - 50 Masood/mcLpH, UA7.05 - 9Protein, UA1+Negative - 2000(20) ++++ mg/dLUrobilinogen, UA 1.00.2 - 12 mg/dLLeukocytes, UA1+Negative - 500+++ Albin/mcLNitrite, UANegative Negative - PositiveSpecimen (Source)Anatomical Location / LateralityCollection Method / VolumeCollection TimeReceived DmrmKpeyh12/31/2025 11:26 AM EST Narrative Authorizing ProviderResult TypeResult StatusJaylin Chung NPPOINT OF CARE TEST ENTER/EDIT ORDERABLESFinal Result * US OB BPP W NON-STRESS (05/05/2025 1:14 PM EST) Only the most recent of3 resultswithin the time period is included. Anatomical RegionLateralityModalityOtherSpecimen (Source)Anatomical Location / LateralityCollection Method / VolumeCollection TimeReceived Time05/05/2025 1:14 PM EST Narrative 05/05/2025 1:16 PM EST [facility] ?[address] ? [place] [address] ? Ultrasound Report ? Signed ? Patient: NEYPHUONGMAID N ?MR#: [id number] ?? : 1990 ?Acct:[id number] ?? Age/Sex: 34 / F ?ADM Date: 05/05/25 ?? Loc: US ? Attending Dr: Mamadou Hayden D.O. ? Ordering Physician: Mamadou Hayden D.O. ?? Date of Service: 05/05/25 ?? Procedure(s): US OB BPP w non-stress ?? Accession Number(s): [id number] ? cc: Mamadou Hayden D.O.; Rebecca Rizvi DATA TECHNICAL LEAD ? [facility] ? [address] ? [place] [address] ? Patient Name: ?? MADI LOGAN ? MRN: [employer]:[id number] ? date: 1990 ?Sex: F ?? Assigned Patient Location: US ?? Current Patient Location: ? Accession/Order Number: [id number] ?? Exam Date: 05/05/2025 ??11:56 ?Report Date: [...] Dictation Location: RADIO-PC-30 ? Electronically authenticated by: [id number] ??Y ?? Date: 05/05/2025 ??13:14 ? Dictated By: ?Malena Salcido M.D. ? Signed By: ?05/05/25 1316 ? DD/ 1314 ? TD/TT: ? Quill Stripper: Procedure Note Radiology, Radiologist, MD - 05/05/2025 [place] [address] Ultrasound Report Signed Patient: MADI LOGAN [facility]#: [id number] : 1990Acct:[id number] Age/Sex: 34 / FADM Date: 05/05/25 Loc: US Attending Dr: Mamadou Hayden D.O. Ordering Physician: Mamadou Hayden D.O. Date of Service: 05/05/25 Procedure(s): US OB BPP w non-stress Accession Number(s): [id number] cc: Mamadou Hayden D.O.; Rebecca Rizvi NP [place] [address] Patient Name: MADI LOGAN MRN: [employer]:[id number] date: 1990 Sex: F Assigned Patient Location: US Current Patient Location: Accession/Order Number: [id number] Exam Date: 05/05/2025 11:56 Report Date: 05/05/2025 [...] Salcido M.D. 05/05/2025 1:14 PM Dictation Location: [place] [address] Electronically authenticated by: [id number] Y Date: 3:14 Dictated By: Malena Salcido M.D. Signed By:05/05/25 1316 DD/ 1314 TD/TT: Quill Stripper: Authorizing ProviderResult TypeResult StatusCorey Jackelyn DOCLINISYNC IMAGINGFinal [...] - 35.2 g/dLTBHTBH RDW13.011.0 - 15.0 %TBHTBH FFA191241 - 450 10 3/uLTBHTBH MPV10.59.5 - 13.5 [...] EST Narrative 04/26/2025 5:20 PM EST [facility] ?[address] ? [place] [address] ? Ultrasound Report ? Signed ? Patient: DESMOND,MADI N ?MR#: [id number] ?? : 1990 ?Acct:[id number] ?? Age/Sex: 34 / F ?ADM Date: 04/26/25 ?? Loc: [facility] ??250-1 ? Attending Dr: Mamadou Hayden D.O. ? Ordering Physician: Mamadou Hayden D.O. ?? Date of Service: 04/26/25 ?? Procedure(s): US OB placenta ?? Accession Number(s): [id number] ? cc: Mamadou Hayden D.O.; Rebecca Rizvi DATA TECHNICAL LEAD ? [facility] ? [address] [place] [address] ? [place] [address] ? Patient Name: ?? MADI LOGAN ? MRN: [employer]:[id number] ? date: 1990 ?Sex: F ?? Assigned Patient Location: [facility] ?? Current Patient Location: [facility] ?? Accession/Order Number: [id number] ?? Exam Date: 04/26/2025 ??16:29 ?Report Date: [...] Dictation Location: RADIO-PC-18 ? Electronically authenticated by: [id number] ??Y ?? Date: 04/26/2025 ??17:17 ? Dictated By: ?Howard Huang M.D. ? Signed By: ?04/26/250 ? DD/ 1717 ? TD/TT: ? Quill Stripper: Procedure Note Radiology, Radiologist, MD - 04/26/2025 [place] [address] Ultrasound Report Signed Patient: MADI LOGAN NMR#: [id number] : 1990Acct:[id number] Age/Sex: 34 / FADM Date: 04/26/25 Loc: [facility] 250-[address]: Mamadou Hayden D.O. Ordering Physician: Mamadou Hayden D.O. Date of Service: 04/26/25 Procedure(s): US OB placenta Accession Number(s): [id number] cc: Mamadou Hayden D.O.; Rebecca Rizvi [place] [address] Patient Name: MADI LOGAN MRN: [id number] date: 1990 Sex: F Assigned Patient Location: [facility] Current Patient Location: [facility] Accession/Order Number: [id number] Exam Date: 04/26/2025 16:29 Report Date: 04/26/2025 [...] Jr., D.O. 04/26/2025 5:17 PM Dictation Location: [facility]--18 Electronically authenticated by: [id number] Y Date: 7:17 Dictated By: Howard Huang M.D. Signed By:04/26/25 172 DD/ 16 TD/TT: Quill Stripper: Authorizing ProviderResult TypeResult StatusCorey Jackelyn DOCLINISYNC IMAGINGFinal Result * US OB CERVICAL LENGTH (04/26/2025 5:17 PM EST)Anatomical RegionLaterality ModalityOtherSpecimen (Source)Anatomical Location / LateralityCollection Method / VolumeCollection TimeReceived Time04/26/2025 5:17 PM EST Narrative 04/26/2025 5:20 PM EST [facility] ?[address] ? [place] [address] ? Ultrasound Report ? Signed ? Patient: EL[place]ES,MADI N ?MR#: [id number] ?? : 1990 ?Acct:[id number] ?? Age/Sex: 34 / F ?ADM Date: 04/26/25 ?? Loc: [facility] ??250-1 ? Attending Dr: Mamadou Hayden D.O. ? Ordering Physician: Mamadou Hayden D.O. ?? Date of Service: 04/26/25 ?? Procedure(s): US OB cervical length ?? Accession Number(s): [id number] ? cc: Mamadou Hayden D.O.; Rebecca Rizvi DATA TECHNICAL LEAD ? [facility] ? [address] ? [place] [address] ? Patient Name: ?? MADI Brigette DESMOND ? MRN: [facility]:[id number] ? date: 1990 ?Sex: F ?? Assigned Patient Location: [facility] ?? Current Patient Location: [facility] ?? Accession/Order Number: [id number] ?? Exam Date: 04/26/2025 ??16:20 ?Report Date: [...] Dictation Location: RADIO-PC-18 ? Electronically authenticated by: [id number] ??Y ?? Date: 04/26/2025 ??17:17 ? Dictated By: ?Howard Huang M.D. ? Signed By: ?04/26/250 ? DD/ 1717 ? TD/TT: ? Quill Stripper: Procedure Note Radiology, Radiologist, - 04/26/2025 [place] [address] Ultrasound Report Signed Patient: MADI LOGAN NMR#: [id number] : 1990Acct:[id number] Age/Sex: 34 / FADM Date: 04/26/25 Loc: [facility] 250-[address]: Mamadou Hayden D.O. Ordering Physician: Mamadou Hayden D.O. Date of Service: 04/26/25 Procedure(s): US OB cervical length Accession Number(s): [id number] cc: Mamadou Hayden D.O.; Rebecca Rizvi DATA TECHNICAL LEAD The [place] [id number] Patient Name: MADI LOGAN MRN: [id number] date: 1990 Sex: F Assigned Patient Location: [facility] Current Patient Location: [facility] Accession/Order Number: [id number] Exam Date: 04/26/2025 16:20 Report Date: 04/26/2025 [...] Jr., D.O. 04/26/2025 5:17 PM Dictation Location: [place] [address] Electronically authenticated by: [id number] Y Date: 7:17 Dictated By: Howard Huang M.D. Signed By:04/26/251719 DD/ 16 TD/TT: Quill Stripper: Authorizing ProviderResult TypeResult StatusCorey Jackelyn DOCLINISYNC IMAGINGFinal [...] CLINISYNC [facility] * (ABNORMAL) [facility] UA (CLEAN/CATCH) REPORTING LEAD/MICRO IF IND. (04/26/2025 3:25 PM EST) ComponentValueRef RangeTest MethodAnalysis TimePerformed AtPathologist SignatureCOLOR URINEYELLOWYELLOWTBHCLARITY URINECLEARCLEARTBHSPECIFIC GRAVITY URINE1.0201.005 - 1.025TBHPH URINE6.05.0 - 9.0TBHPROTEIN URINENEGATIVE NEG/TRACE mg/dLTBHGLUCOSE URINE UANEGATIVENEGATIVE mg/dLTBHBILIRUBIN URINE NEGATIVENEGATIVETBHKETONES URINETRACE(A)NEGATIVE mg/dLTBHBLOOD URINETRACE-I NEGATIVETBHNITRITE URINENEGATIVENEGATIVETBHUROBILINOGEN URINE0.20.2 - 1.0 EU/dLTBHLEUKOCYTE ESTERASE URINENEGATIVENEGATIVETBHURINE MICROSCOPIC INDICATED YESTBHSpecimen (Source)Anatomical Location / LateralityCollection Method / VolumeCollection TimeReceived Time04/26/2025 3:25 PM EST04/26/2025 3:56 PM EST Narrative FARNAZ - 04/26/2025 4:10 PM EST Authorizing ProviderResult TypeResult StatusCorey Jackelyn DOCLINISYNCFinal Result Performing OrganizationAddressCity/State/ZIP CodePhone Number [facility] * GLUCOSE 1 HOUR (04/10/2025 1:29 PM EST)ComponentValueRef RangeTest Method Analysis TimePerformed AtPathologist SignatureGLUCOSE 1 YWZO348<130 mg/dLTBH Specimen (Source)Anatomical Location / LateralityCollection Method / Volume Collection TimeReceived Time04/10/2025 1:29 PM EST04/10/2025 1:40 PM EST Narrative FARNAZ - 04/10/2025 2:00 PM EST Authorizing ProviderResult TypeResult StatusCorey Jackelyn DOLAB BLOOD ORDERABLES Final ResultPerforming OrganizationAddressCity/State/ZIP CodePhone Number [facility] * RECURRENT VAGINITIS (HTRX) (03/13/2025 11:37 AM EST)ComponentValueRef Range Test MethodAnalysis TimePerformed AtPathologist SignatureATOPOBIUM VAGINAE0 19.961 - 24.689 ppm03/14/2025 7:09 AM ESTHealthTrackRx at LabPortATOPOBIUM VAGINAENot Aaazessz93.961 - 24.689 ppm03/14/2025 7:09 AM ESTHealthTrackRx at LabPortBVAB 2,3 (BACTERIAL VAGINOSIS ASSOCIATED BACTERIA 2, 3); MOBILUNCUS SPP 019.961 - 24.689 ppm03/14/2025 7:09 AM ESTHealthTrackRx at LabPortBVAB 2,3 (BACTERIAL VAGINOSIS ASSOCIATED BACTERIA 2, 3); MOBILUNCUS SPPNot Detected 19.961 - 24.689 ppm03/14/2025 7:09 AM ESTHealthTrackRx at LabMadison State HospitalCANDIDA ALBICANS, PARAPSILOSIS, YJHOYXKFIH160.000 - 30.347 ppm03/14/2025 7:09 AM EST [facility] at LabPortCANDIDA ALBICANS, PARAPSILOSIS, TROPICALISNot Detected 23.000 - 30.347 ppm03/14/2025 7:09 AM ESTHealthTrackRx at LabPortCANDIDA FDXVQXMS428.000 - 31.618 ppm03/14/2025 7:09 AM ESTHealthTrackRx at LabPort BRAN GLABRATANot Rybqwngs87.000 - 31.618 ppm03/14/2025 7:09 AM EST [facility] at LabPortCANDIDA GGFDNT207.000 - 30.873 ppm03/14/2025 7:09 AM ESTHealthTrackRx at LabPortCANDIDA KRUSEINot Ivtlpdny35.000 - 30.873 ppm 03/14/2025 7:09 AM ESTHealthTrackRx at LabPortCHLAMYDIA WQZKPRTXHHV997.000 - 31.586 ppm03/14/2025 7:09 AM ESTHealthTrackRx at LabPortCHLAMYDIA TRACHOMATIS Not Ipuuikex26.000 - 31.586 ppm03/14/2025 7:09 AM ESTHealthTrackRx at LabPort GARDNERELLA DDPUQECVS743.961 - 24.689 ppm03/14/2025 7:09 AM ESTHealthTrackRx at LabPortGARDNERELLA VAGINALISNot Crfftqex40.961 - 24.689 ppm03/14/2025 7:09 AM ESTHealthTrackRx at LabPortMEGASPHAERA (TYPES 1, 2)019.961 - 24.689 ppm 03/14/2025 7:09 AM ESTHealthTrackRx at LabPortMEGASPHAERA (TYPES 1, 2)Not Hctxfwfh95.961 - 24.689 ppm03/14/2025 7:09 AM ESTHealthTrackRx at LabPort NEISSERIA UXZEVTTKRMH293.000 - 32.587 ppm03/14/2025 7:09 AM ESTHealthTrackRx at LabPortNEISSERIA GONORRHOEAENot Kcodldbh10.000 - 32.587 ppm03/14/2025 7:09 AM ESTHealthTrackRx at LabPortTRICHOMONAS ZFTVSFMLX114.000 - 31.995 ppm 03/14/2025 7:09 AM ESTHealthTrackRx at LabPortTRICHOMONAS VAGINALISNot Uxvwccwf39.000 - 31.995 ppm03/14/2025 7:09 AM ESTHealthTrackRx at LabPort MYCOPLASMA ZQPCKERNJO938.961 - 24.689 ppm03/14/2025 7:09 AM ESTHealthTrackRx at LabMadison State HospitalMYCOPLASMA GENITALIUMNot Guqgnyas39.961 - 24.689 ppm03/14/2025 7:09 AM ESTHealthTrackRx at LabPortSpecimen (Source)Anatomical Location / LateralityCollection Method / VolumeCollection TimeReceived TimeTissue 03/13/2025 11:37 AM EST03/14/2025 1:59 AM EST Narrative Authorizing ProviderResult TypeResult StatusCoreindy Hayden DOLAB BLOOD ORDERABLES Final ResultPerforming OrganizationAddressCity/State/ZIP CodePhone Number [facility] [address] [place] [address] * US OB 14+ weeks anatomy scan (03/11/2025 3:30 PM EST)Anatomical Region LateralityModalityBodyUltrasoundSpecimen (Source)Anatomical Location / LateralityCollection Method / VolumeCollection TimeReceived Time03/11/2025 3:30 PM EST Narrative 03/11/2025 3:30 PM EST THIS EXAM WAS PERFORMED AT [facility] NAME: ??DESMOND GUTIERREZ : 1990 SEX: F Accession Number: [id number] ORDERING PHYSICIAN: MAMADOU HAYDEN REFERRING PHYSICIAN: MAMADOU HAYDEN Coding Procedures ? 59725: Ultrasound, uterus, real time with image documentation, and maternal evaluation ? plus detailed anatomic examination, transabdominal approach;single or first gestation. 2 ? 68070: Ultrasound, uterus, real time with image documentation, [...] view: limited by position and activity. Medical Workers Compensation Paralegal Workers Compensation Paralegal declined Twin . Number of fetuses: 2. [...] (oz) ? 14 oz EFW by: ?Hadlock (JZL-RI-AM-FL) Extended Tibia ??31.1 mm 21w 3d 40% Bibiana Victim Witness Administrator ? 10.4 mm CM ? 3.6 mm [...] (oz) ? 2 oz EFW by: ?Hadlock (GJI-[id number]-FL) Extended Tibia ??32.2 mm 21w 6d 57% Bibiana Victim Witness Administrator ? 5.4 mm CM ? 6.0 mm [...] Face: Orbits. Heart/Thorax: 4-chamber view. 3-vessel view. 4-komkke-mabgohp view. Situs. Aortic arch view. Bicaval view. [...] Lips. Nose. Heart / Thorax 4-chamber view. 9-qrlemz-llvcqtx view. Situs. Aortic arch view. Cardiac rhythm. [...] - 03/11/2025 THIS EXAM WAS PERFORMED AT [facility] NAME: DESMOND GUTIERREZ : 1990 SEX: F Accession Number: [id number] ORDERING PHYSICIAN: MAMADOU HAYDEN REFERRING PHYSICIAN: MAMADOU HAYDEN Coding Procedures 24685: Ultrasound, uterus, real time with image documentation, and maternal evaluation plus detailed anatomic examination, transabdominalapproach;single or first gestation. 2 96253: Ultrasound, uterus, real time with imagedocumentation, transvaginal [...] Suboptimalview: limited by position and activity. [employer] Paralegal declined Twin . Number of fetuses: 2. [...] EFW (oz) 14 oz EFW by: Hadlock (RBP-EE-NT-FL) Extended Tibia 31.1 mm 21w 3d 40% Bibiana Victim Witness Administrator 10.4 mm CM 3.6 mm 5% Nicolaides [...] EFW (oz) 2 oz EFW by: Hadlock (SAG-KV-QN-FL) Extended Tibia 32.2 mm 21w 6d 57% Bibiana Victim Witness Administrator 5.4 mm CM 6.0 mm 68% Nicolaides [...] Face: Orbits. Heart/Thorax: 4-chamber view. 3-vessel view. 5-tzttlg-cokyruu view. Situs.Aortic arch view. Bicaval view. Cardiac [...] Lips. Nose. Heart / Thorax 4-chamber view. 8-vpwblo-ekdxzer view. Situs. Aortic archview. Cardiac rhythm. Abdomen [...] Total discordance is 19.5% Recommendations Please see [facility] documentation from today. The patient is scheduled in four to six week(s) to complete anatomicsurvey. Subsequent follow up or other follow up as clinically determined byprimary OB provider unless otherwise specified by [facility]. Results forwarded to ordering provider so they can follow up with thepatient as necessary. Authorizing ProviderResult TypeResult StatusCorey Jackelyn DOI OB US PROCEDURES Final Result * ALL MISCELLANEOUS TEST (03/04/2025 12:49 PM EDT)ComponentValueRef RangeTest MethodAnalysis TimePerformed AtPathologist SignatureMISCELLANEOUS TESTCOMMENT. TBHComment: Test Ordered: [id number] Qvrfoxigs-0-Uruppmltu, RBC Jyhprkbwv-8-Kiegbgenp, RBC <0.3 mg/dL ML ?? Reference Range: . REFERENCE VALUE Reference interval (normal range): <=0.9 Therapeutic range: <=4.9 ADDITIONAL INFORMATION Liquid Chromatography-Tandem Mass Spectrometry (LC-MS/MS) This test was developed and its performance characteristics determined by [facility] in a manner consistent with CLIA requirements. This test has not been cleared or approved by the U.S. Food and Drug Administration. Performed at: ??ML - [facility] [address] [facility], [place], [place] ??[id number] Fish Bin Tender: Kellen De La Paz PhD, Phone: ??[phone] Performed at: ??CB - [facility] [address] ??[id number] Fish Bin Tender: Jose Rainey PhD, Phone: ??[phone] Specimen (Source)Anatomical Location / LateralityCollection Method / Volume Collection TimeReceived Time03/04/2025 12:49 PM EDT1 12:59 PM EDT Narrative CLINISYNC - 03/14/2025 5:09 PM EST [id number] Evmkzmrhz-6-Iqjpuokri, RBC Authorizing ProviderResult TypeResult StatusCorey Jackelyn DOCLINISYNCFinal Result Performing OrganizationAddressty/State/ZIP CodePhone Number [facility] * BOX TEST (02/12/2025 5:26 PM EDT)ComponentValueRef RangeTest MethodAnalysis TimePerformed AtPathologist SignatureBOX TEST SENT KGHJYEKSVOKSAJ9NQZOKNXJRIR2 02/12/2025TBHSpecimen (Source)Anatomical Location / LateralityCollection Method / VolumeCollection TimeReceived Time02/12/2025 5:26 PM EDT1 5:46 PM EDT Narrative CLINISYNC - 02/12/2025 5:59 PM EDT Authorizing ProviderResult TypeResult StatusCorey Jackelyn DOLAB BLOOD ORDERABLES Final ResultPerforming OrganizationAddressCity/State/ZIP CodePhone Number [facility] * AFP, SERUM, OPEN SPINA BIFIDA (02/12/2025 5:26 PM EDT)ComponentValueRef Range Test MethodAnalysis TimePerformed AtPathologist SignatureRESULTSReport.TBHTEST RESULTS:*Screen Negative*.TBHGEST. AGE ON COLLECTION DATE18.0. weeksTBH GESTAT. AGE BASED ONUltrasound.TBHComment: ?18.0 on 02/12/2025 Recalculations are not recommended when gestational dating by LMP and ultrasound are within 10 days. MATERNAL AGE AT EDD35.7. yrTBHRACECaucasian.MUGEIHKOS570. lbsTBHINSULIN DEP DIABETESNo.TBHMULTIPLE GESTATIONTwins.TBHAFP FSKUE266.6. ng/mLTBHAFP MOM3.18.TBH OSBR RISK 1 IN304.TBHINTERPRETATIONComment.TBHComment: Interpretation: [...] Customer Services to discuss available options. ??The [employer] recommends amniocentesis be offered to women age 35 and older. COMMENT:Comment.TBHComment: Kenia Schreiber, Ph.D., [facility] Director References: Available Upon Request. Multiples Of Median Cutoffs ?For AFP Elevations Palmer ?? 2.5 ? Black ?2.8 IDD ? 2.0 ? Twins ?4.5 ?Abbreviation Definitions IDD - Insulin Dep Diabetes OSBR - Open Spina Bifida Risk For further inquiries contact [facility] at [phone]. This test was developed and its performance characteristics determined by [facility]. It has not been cleared or approved by the Food and Drug Administration. Performed at: ??TG - [facility] [address] [place], [place] ??[id number] Fish Bin Tender: Steven Bernard [facility], Phone: ??[phone] Specimen (Source)Anatomical Location / LateralityCollection Method / Volume Collection TimeReceived Time02/12/2025 5:26 PM EDT1 5:46 PM EDT Narrative CLINISYNC - 02/15/2025 1:06 AM EDT N N ULTRASOUND [id number] 18 N 2 172 N N N N N White/ Authorizing ProviderResult TypeResult StatusCorey Jackelyn DOLAB BLOOD ORDERABLES Final ResultPerforming OrganizationAddressCity/State/ZIP CodePhone Number [facility] * ALL VITAMIN B6 (02/12/2025 5:26 PM EDT)ComponentValueRef RangeTest Method Analysis TimePerformed AtPathologist SignatureVITAMIN B6, KPIDCW97.43.4 - 65.2 ug/LTBHComment: This test was developed and its performance characteristics determined by [facility]. It has not been cleared or approved by the Food and Drug Administration. Deficiency: <3.4 ? Marginal: ?3.4 - 5.1 Adequate: >5.1 Performed at: ?? - [facility] [address] ??[id number] Fish Bin Tender: Dea Amaya MD, Phone: ??[phone] Specimen (Source)Anatomical Location / LateralityCollection Method / Volume Collection TimeReceived Time02/12/2025 5:26 PM EDT1 5:46 PM EDT Narrative CLINISYNC - 02/17/2025 4:09 PM EDT Authorizing ProviderResult TypeResult StatusCorey Jackelyn DOCLINISYNCFinal Result Performing OrganizationAddressCity/State/ZIP CodePhone Number [facility] from Last 3 Months Insurance Care Teams Team MemberRelationshipSpecialtyStart DateEnd Date Rebecca Rizvi MD [facility] [place] [address] PCP - GeneralFamily Medicine01/03/25
--- OUTSIDE RECORDS SUMMARY | 2025-05-07 11:55 | XMS_ITS | Patient Health Record ---
Author Organization [facility] Address [address] [place] [address] Care Team Providers Care Apns Name Role Phone Dr. Howard Arriaga Primary Care Provider [phone] Erin Guallpa [phone] Reason For Referral No Information Encounters Encounter Location Date Provider Diagnosis [facility] [address] [place] [address] 03/14/2025 Erin Wheeler Acute gingivitis, plaque induced K05.00 ; Other dental procedure status Z98.818 and Encounter for dental examination and cleaning with abnormal findings Z01.21 [facility] [address] [place] [address] 08/22/2024 Erin Wheeler Acute gingivitis, plaque induced [...] 09/26/2025 11:15:00 AM, [address] [place], [address], Insurance Providers Payer Name Payer Address Payer Phone Subscriber Number Group Number Insured Name Patient Relationship to Insured Coverage Start Date Coverage End Date Dental Anthem [place] Medicaid [address] [address] [place] [address] [id number] BRENDA LOGAN Self - patient is the insured Dental Wrap [facility] [address] [place] [id number] LOGANlf - patient is the [id number] 2024
--- OUTSIDE RECORDS SUMMARY | 2025-05-07 11:55 | XMS_ITS | Encounter Summary ---
Author Organization [facility] Address [address] [facility] [place] [address] Care Team Providers Care Shorer Name Role Phone Rebecca Rizvi MD Primary Care Provider [phone] Encounter Details DateTypeDepartmentCare Team (Latest Contact Info)Czbystwjbok43/31/2025amboo flowsheet NOMTiffany PERALTA [address] [place] [address] Jaylin Chung NP [address] [place] [address] Social History Tobacco UseTypesPacks/DayYears UsedDateSmoking Tobacco: Never Assessed Estimated Date of HgbccnfzWwbsahqoWgs29/11/2026Based on UltrasoundSex and Gender InformationValueDate RecordedSex Assigned at BirthNot on fileLegal SexFemale 07/20/2022 6:43 PM EDTGender IdentityNot on fileSexual OrientationNot on file documented as of this encounter Plan of Treatment DateTypeDepartmentCare Team (Latest Contact Info)Ydhepwxbdlf93/14/2026 3:50 PM ESTRoutine [facility] Camelia ADAMSGYN [address] [place] [address] Rene Hayden DO [address] [place], [facility]11 documented as of this encounter Visit Diagnoses Not on filedocumented in this encounter Care Teams Team MemberRelationshipSpecialtyStart DateEnd Date Rebecca Rizvi MD [facility] [place] [address] PCP - GeneralFamily Medicine01/03/25documented as of this encounter
--- OUTSIDE RECORDS SUMMARY | 2025-05-07 11:55 | XMS_ITS | Encounter Summary ---
Author Organization [facility] [employer] [facility] tem Address [facility] [place]-[id number] [address] [place] [address] Care Team Providers Care Buzzsaw Operator Name Role Phone Rebecca Rizvi BLANCA-DRAWING IN MACHINE TENDER HELPER Primary Care Provider Encounter Details DateTypeDepartmentCare Team (Latest Contact Info)Vubgwezczor99/30/2025 Documentation Maternal- Medicine at [facility] [address] [place] [phone] Eliza Chinchilla, [facility] [address] [facility] [address] [place] [address] Social History Tobacco UseTypesPacks/DayYears UsedDateSmoking Tobacco: FormerCigarettes0.58.1 Started: 04/05/2017Smokeless Tobacco: NeverAlcohol UseStandard Drinks/Week CommentsNot Currently3 (1 standard drink = 0.6 oz pure alcohol)occasionalAHC UtilitiesAnswerDate RecordedIn the past 12 months has the [employer], gas, oil, or water vidCoin threatened to shut off services in your home?No03/28/2024Overall Financial Resource Strain (CARDIA)AnswerDate RecordedHow hard is it for you to pay for the very basics like food, housing, medical care, and heating?Not hard at all05/07/2024HQ-2AnswerDate RecordedTotal Nbyxi989PRAPARE - TransportationAnswerDate RecordedIn the past 12 months, has lack of transportation kept you from medical appointments or from getting medications?No 03/28/2024In the past 12 months, has lack of transportation kept you from meetings, work, or from getting things needed for daily living?No03/28/2024 [place] Depression ScaleAnswerDate RecordedEdinburgh Depression Scale Vjboq759The thought of harming myself has occurred to [...] household?No03/28/2024hildcare AnswerDate RecordedDo problems getting early childhood educator aide make it difficult for you to work or study?No05/07/2024EmploymentAnswerDate RecordedEmploymentUnknown 10/15/2018Hunger ScreeningAnswerDate RecordedWithin the past 12 months we worried whether our food would run out before we got money to buy more.Never True03/11/2025Within the past 12 months the food we bought just didn't last and we didn't have money to get more.Never True03/11/2025Purpose - LifeAnswerDate RecordedPurpose and direction in xffrJgzvkfu20/10/2021Estimated Date of UmhchuebHbgiusrzVud92/11/2026Based on UltrasoundSex and Gender InformationValue Date RecordedSex Assigned at TpbynJnhcpx06/02/2022 7:15 PM EDTLegal SexFemale 12/09/2014 2:44 PM EDTGender QadfaxolZmtmzi28/02/2022 7:15 PM EDTSexual IqcwikozdvlDghxgipj87/02/2022 7:15 PM EDTdocumented as of this encounter Progress Notes * Eliza Chinchilla, BLANCA-DANIM - 05/06/2025 9:28 AM EST Received call from Ese. She states she had testing done yesterday, tomorrow and Navid scheduled in [place]. States she just scheduled with [facility] for JESSICA, and has [facility] appointments on 05/15/24. Asking to have other testing in [place]. [employer] [facility] will investigate that option today. Questions from patient: Why don't we keep antibiotics going until delivery? Explained the protocol is for a certain amount of days and then stop, according to research. Plus, resistance could develop over time.If care transferred to [facility] and testing can't be done at [place], could she still have testing at [place]? [facility] or [facility] can work with Dr. Hayden as needed. 3. Can monitoring tell if infection starting before she feels any s/s? Sometimes increases infetal heart rate are detected on monitor before patient feels feverish. 4. Why isn't there lele any blood work done to look for infection? Pt encouraged to ask providers at her next appointment., when blood work is needed. Pt states +FM, no s/s of chorio. States feeling well. [employer] [facility] will notify pt regarding [place] testing. HOMAR Mcelroy 05/06/25 1003 documented in this encounter Plan of Treatment DateTypeDepartmentCare Team (Latest Contact Info)Iygfiowtoko41/08/2026 8:30 AM ESTAppointment [facility] [address] [place] [phone] 05/15/2025 9:30 AM ESTInitial [facility] [address] [place] [address] Florecita Bergeron MD [address] [facility] [place] [phone] 05/15/2025 11:00 AM ESTOffice Visit Maternal- Medicine at [facility] [address] [place] [phone] Charlene Lees MD [address] [facility], [address] [place] [address] 11/04/2025 4:00 PM EDTOffice Visit [facility] [address] [place] [address] Rebecca Rizvi APRN-CNP [address] [place] [phone] documented as of this encounter Visit Diagnoses Not on filedocumented in this encounter Additional Health Concerns AssessmentNoted TimePHQ-9 Depression Total Score: 3:04 PM EDTA Body Mass Index follow-up plan has been documented for the wxrwdjb6609/11/2018 4:32 PM EDTdocumented as of this encounter Care Teams Team MemberRelationshipSpecialtyStart DateEnd Date Rebecca Rizvi APRN-CNP [address] [place] [phone] PCP - GeneralNurse Practitioner08/23/22documented as of this encounter
--- OUTSIDE RECORDS SUMMARY | 2025-05-07 11:55 | XMS_ITS | Clinical Summary ---
Author Organization [facility] Address [address] [place] [address], [address] [place] [address] Care Team Providers Care Satellite Tv Technician Name Role Phone Neto Karen HILARION - METAL HANGING HELPER Primary Care Provider Unavailable Allergies No [...] InformationValueDate RecordedSex Assigned at BirthNot on fileLegal VgoElrtqw28/28/2017 11:11 AM ESTGender IdentityNot on fileSexual OrientationNot on file Last Filed Vital Signs Vital SignReadingTime TakenCommentsBlood Rlamxxfx091/7601/ 3:41 PM EST Jtfru5775/ 3:41 PM QUOSkdyvhhibxj68.4 ??C (97.6 ??F)02/19/2020 1:24 PM EDTRespiratory Rate--Oxygen Kyghviapvl994%06/30/2017 10:28 AM ESTInhaled Oxygen Concentration--Lubeuf31.7 kg (136 lb)06/03/2020 3:41 PM VYLUfrrem238 cm (5' 3 ) 06/30/2017 10:28 AM ESTBody Mass Index24.0906/30/2017 10:28 AM EST Plan of Treatment Not on file Insurance Care Teams Team MemberRelationshipSpecialtyStart DateEnd Date Karen Duque APRN - METAL HANGING HELPER PCP - GeneralNurse Kiepejguwplc05/19/17
--- OUTSIDE RECORDS SUMMARY | 2025-05-07 11:55 | XMS_ITS | Encounter Summary ---
Author Organization [facility] Address [address] [facility] [place] [address] Care Team Providers Care Teacher Preschool Name Role Phone Rebecca Rizvi MD Primary Care Provider [phone] Encounter Details DateTypeDepartmentCare Team (Latest Contact Info)Dazfulmyyec31/17/2025amboo flowsheet NOMTiffany PERALTA [address] [place] [address] Rene Hayden DO [address], [place] [address] Social History Tobacco UseTypesPacks/DayYears UsedDateSmoking Tobacco: Never Assessed Estimated Date of BfwtaptdGpebnaqlIoi08/11/2026Based on UltrasoundSex and Gender InformationValueDate RecordedSex Assigned at BirthNot on fileLegal SexFemale 07/20/2022 6:43 PM EDTGender IdentityNot on fileSexual OrientationNot on file documented as of this encounter Plan of Treatment DateTypeDepartmentCare Team (Latest Contact Info)Xifpcncmufb30/14/2026 3:50 PM ESTRoutine [facility] Camelia ADAMSGYN [address] [place] [address] Rene Hayden DO [address] [place], [place] [phone] documented as of this encounter Visit Diagnoses Not on filedocumented in this encounter Care Teams Team MemberRelationshipSpecialtyStart DateEnd Date Rebecca Rizvi MD [facility] [place] [phone] PCP - GeneralFamily Medicine01/03/25documented as of this encounter
--- OUTSIDE RECORDS SUMMARY | 2025-05-07 11:55 | XMS_ITS | Encounter Summary ---
Author Organization [facility] Address [address] [place] [address] Care Team Providers Care Spring Encaser Name Role Phone Rebecca Rizvi MD Primary Care Provider [phone] Encounter Details DateTypeDepartmentCare Team (Latest Contact Info)Kdhhacrkhfo92/24/2025linisync Result Encounter [facility]S External Department Unsolicited Mamadou Hayden, DO [address] [place], [place] [phone] Social History Tobacco UseTypesPacks/DayYears UsedDateSmoking Tobacco: Never Assessed Estimated Date of UrxmprjrAgjihkwtTjw10/11/2026Based on UltrasoundSex and Gender InformationValueDate RecordedSex Assigned at BirthNot on fileLegal SexFemale 07/20/2022 6:43 PM EDTGender IdentityNot on fileSexual OrientationNot on file documented as of this encounter Plan of Treatment DateTypeDepartmentCare Team (Latest Contact Info)Twlthgwevhe80/14/2026 3:50 PM ESTRoutine NOMS Camelia OBGYN [address] [place] [address] Mamadou Hayden, DO [address] [facility] [address] [place], [place] [phone] documented as of this encounter Procedures Procedure NamePriorityDate/TimeAssociated DiagnosisCommentsUS OB BPP W NON-JPHAMG9704/30/2025 12:06 PM EST documented in this encounter Results * US OB BPP W NON-STRESS (04/30/2025 12:06 PM EST)Anatomical Region LateralityModalityOtherSpecimen (Source)Anatomical Location / Laterality Collection Method / VolumeCollection TimeReceived Time04/30/2025 12:06 PM EST Narrative 04/30/2025 12:08 PM EST [facility] ?[address] ? [place], [facility]11 ? Ultrasound Report ? Signed ? Patient: ELMES,ESE N ?MR#: [id number] ?? : 1990 ?Acct:[id number] ?? Age/Sex: 34 / F ?ADM Date: 04/30/25 ?? Loc: [facility] ??250-1 ? Attending Dr: Mamadou Hayden D.O. ? Ordering Physician: Mamadou Hayden D.O. ?? Date of Service: 04/30/25 ?? Procedure(s): US OB BPP w non-stress ?? Accession Number(s): [id number] ? cc: Mamadou Hayden D.O.; Rebecca Rizvi MACERATOR OPERATOR ? [facility] ? [address] ? [place] [address] ? Patient Name: ?? ESE BADILLO ? MRN: [facility]:[id number] ? date: 1990 ?Sex: F ?? Assigned Patient Location: [facility] ?? Current Patient Location: FB ?? Accession/Order Number: [id number] ?? Exam Date: 04/30/2025 ??11:08 ?Report Date: [...] Dictation Location: RADIO-PC-30 ? Electronically authenticated by: [id number] ??Y ?? Date: 04/30/2025 ??12:06 ? Dictated By: ?Malena Salcido M.D. ? Signed By: ?12/24/25 1208 ? DD/ 1206 ? TD/TT: ? Production Operations Manager: Procedure Note Radiology, Radiologist, - 04/30/2025 [place] [address] Ultrasound Report Signed Patient: ESE BADILLO [facility]#: [id number] : 1990Acct:[id number] Age/Sex: 34 / FADM Date: 04/30/25 Loc: [facility] 250-[address]: Mamadou Hayden D.O. Ordering Physician: Mamadou Hayden D.O. Date of Service: 04/30/25 Procedure(s): US OB BPP w non-stress Accession Number(s): [id number] cc: Mamadou Hayden D.O.; Rebecca Rizvi The [place] [address] Patient Name: ESE BADILLO MRN: [id number] date: 1990 Sex: F Assigned Patient Location: [facility] Current Patient Location: [facility] Accession/Order Number: [id number] Exam Date: 04/30/2025 11:08 Report Date: 04/30/2025 [...] Salcido M.D. 04/30/2025 12:06 PM Dictation [facility] Electron[facility] authenticated by: [id number] Y Date: :06 Dictated By: Malena Salcido M.D. Signed By:04/30/25 1208 DD/ 1206 TD/TT: Production Operations Manager: Authorizing ProviderResult TypeResult StatusCorey Jackelyn DOCLINISYNC IMAGINGFinal Result documented in this encounter Visit Diagnoses Not on filedocumented in this encounter Care Teams Team MemberRelationshipSpecialtyStart DateEnd Date Rebecca Rizvi MD [address] [place] [phone] PCP - GeneralFamily Medicine01/03/25documented as of this encounter
--- OUTSIDE RECORDS SUMMARY | 2025-05-07 11:55 | XMS_ITS | Encounter Summary ---
Author Organization [facility] NetDocuments [facility] tem Address [id number] [address] [place] [address] Care Team Providers Care Back Maker Name Role Phone Rebecca Rizvi [employer] PLANNER Primary Care Provider Encounter Details DateTypeDepartmentCare Team (Latest Contact Info)Hkrdghilzfz54/24/2025 Documentation Maternal- Medicine at [facility] [address] [place] [phone] Eliza Chinchilla, [facility] [address] [facility] [address] [place] [address] Social History Tobacco UseTypesPacks/DayYears UsedDateSmoking Tobacco: FormerCigarettes0.58.1 Started: 04/05/2017Smokeless Tobacco: NeverAlcohol UseStandard Drinks/Week CommentsNot Currently3 (1 standard drink = 0.6 oz pure alcohol)occasionalAHC UtilitiesAnswerDate RecordedIn the past 12 months has the [employer] gas, oil, or water [employer] threatened to shut off services in your home?No03/28/2024Overall Financial Resource Strain (CARDIA)AnswerDate RecordedHow hard is it for you to pay for the very basics like food, housing, medical care, and heating?Not hard at all05/07/2024HQ-2AnswerDate RecordedTotal Grnjs926PRAPARE - TransportationAnswerDate RecordedIn the past 12 months, has lack of transportation kept you from medical appointments or from getting medications?No 03/28/2024In the past 12 months, has lack of transportation kept you from meetings, work, or from getting things needed for daily living?No03/28/2024 [place] Depression ScaleAnswerDate RecordedEdinburgh Depression Scale Korfv481The thought of harming myself has occurred to [...] a household?No03/28/2024hildcare AnswerDate RecordedDo problems getting exceptional children's teacher make it difficult for you to work or study?No05/07/2024EmploymentAnswerDate RecordedEmploymentUnknown 10/15/2018Hunger ScreeningAnswerDate RecordedWithin the past 12 months we worried whether our food would run out before we got money to buy more.Never True03/11/2025Within the past 12 months the food we bought just didn't last and we didn't have money to get more.Never True03/11/2025Purpose - LifeAnswerDate RecordedPurpose and direction in apppYfhjdnn69/10/2021Estimated Date of ZdclryfcDeiohojuLjo50/11/2026Based on UltrasoundSex and Gender InformationValue Date RecordedSex Assigned at UilraSdqkqu24/02/2022 7:15 PM EDTLegal SexFemale 12/09/2014 2:44 PM EDTGender BlcgnadbVrkyan91/02/2022 7:15 PM EDTSexual TnwidzybjrzGvgwzhxl54/02/2022 7:15 PM EDTdocumented as of this encounter Progress Notes * Eliza Chinchilla APRN-DANIM - 04/30/2025 10:09 AM EST Received voice message from Ese who stated she had questions about her plan of care. Spoke with patient who had many questions about the plan for her care. Painter And Paperhanger Apprentice told her Dr. Lees's recommendation for Dr. Hayden : NSTs 2x/week PAMELA weekly Office appointments weekly with temperature checks. Delivery at 34 weeks due to PROM Patient questioned why - explained staying much past that increases risk of complications and benefits of delivery outweight risk of prolonging . Patient states understanding. Patient unsure if her care is being transferred to [facility]. States Dr. Hayden uncomfortable with delivery before 36 weeks. Painter And Paperhanger Apprentice will clarify with Dr. Hayden curry. Patient scheduled for NSTs/ultrasounds 04/30 & 05/02 at [place]. Denies any s/s chorio. Painter And Paperhanger Apprentice reviewed s/s, encouraged to watch for fever, chills, abd pain or change in discharge, especially bright red bleeding. If fever or other s/s can come to [place] or [place]. If bleeding go to the nearest hospital with an OB department - [place]. +[facility] [place]. HOMAR Mcelroy 04/30/25 1033 * HOMAR Mcelroy - 04/30/2025 10:09 AM EST Painter And Paperhanger Apprentice received call from [facility] that they have received transfer of care for Ese and they will call her to schedule her curry. Painter And Paperhanger Apprentice explained current plan in place for NSTs/Ultrasounds this weekat [place]. HOMAR Mcelroy 04/30/25 1033 documented in this encounter Plan of Treatment DateTypeDepartmentCare Team (Latest Contact Info)Nejqzmcbqnv99/08/2026 8:30 AM ESTAppointment [facility] [address] [place] [address] 05/15/2025 9:30 AM ESTInitial [facility] [address] [place] [address] Florecita Bergeron MD [address] [facility] [place] [phone] 05/15/2025 11:00 AM ESTOffice Visit Maternal- Medicine at [facility] [address] [place] [phone] Charlene Lees MD [address] [facility], [address] [place] [address] 11/04/2025 4:[address] [address] [place] [phone] Rebecca Rizvi APRN-CNP [address] [place] [phone] documented as of this encounter Visit Diagnoses Not on filedocumented in this encounter Additional Health Concerns AssessmentNoted TimePHQ-9 Depression Total Score: 3:04 PM EDTA Body Mass Index follow-up plan has been documented for the neousah6009/11/2018 4:32 PM EDTdocumented as of this encounter Care Teams Team MemberRelationshipSpecialtyStart DateEnd Date Rebecca Rizvi APRN-CNP [facility] [place] [phone] PCP - GeneralNurse Practitioner08/23/22documented as of this encounter
--- OUTSIDE RECORDS SUMMARY | 2025-05-07 11:55 | XMS_ITS | Encounter Summary ---
Author Organization [facility] Address [address] [place] [address] Care Team Providers Care Corrections Nurse Name Role Phone Rebecca Rizvi MD Primary Care Provider [phone] Encounter Details DateTypeDepartmentCare Team (Latest Contact Info)Bijlrpvatcx89/26/2025linisync Result Encounter [facility] Unsolicited Mamadou Hayden, DO [address] [place], [place] [phone] Social History Tobacco UseTypesPacks/DayYears UsedDateSmoking Tobacco: Never Assessed Estimated Date of WizpovdrYwdzcoreNwl77/11/2026Based on UltrasoundSex and Gender InformationValueDate RecordedSex Assigned at BirthNot on fileLegal SexFemale 07/20/2022 6:43 PM EDTGender IdentityNot on fileSexual OrientationNot on file documented as of this encounter Plan of Treatment DateTypeDepartmentCare Team (Latest Contact Info)Hjgffyzanqy09/14/2026 3:50 PM ESTRoutine [facility] [address] [facility] [place] [phone] Mamadou Hayden, DO [address] [place], [place] [phone] documented as of this encounter Procedures Procedure NamePriorityDate/TimeAssociated DiagnosisCommentsUS OB BPP W NON-RVPFXA9505/02/2025 11:25 AM EST documented in this encounter Results * US OB BPP W NON-STRESS (05/02/2025 11:25 AM EST)Anatomical Region LateralityModalityOtherSpecimen (Source)Anatomical Location / Laterality Collection Method / VolumeCollection TimeReceived Time05/02/2025 11:25 AM EST Narrative 05/02/2025 11:28 AM EST [facility] ?[address] ? [place], [facility] ? Ultrasound Report ? Signed ? Patient: ELMES,ESE N ?MR#: [id number] ?? : 1990 ?Acct:[id number] ?? Age/Sex: 34 / F ?ADM Date: 05/02/25 ?? Loc: [facility] ??250-1 ? Attending Dr: Mamadou Hayden D.O. ? Ordering Physician: Mamadou Hayden D.O. ?? Date of Service: 05/02/25 ?? Procedure(s): US OB BPP w non-stress ?? Accession Number(s): [id number] ? cc: Mamadou Hayden D.O.; Rebecca Rizvi SKETCH LINER ? [facility] ? [address] ? [place] [address] ? Patient Name: ?? ESE BADILLO ? MRN: [facility]:[id number] ? date: 1990 ?Sex: F ?? Assigned Patient Location: [facility] ?? Current Patient Location: FB ?? Accession/Order Number: [id number] ?? Exam Date: 05/02/2025 ??10:35 ?Report Date: [...] Dictation Location: RADIO-PC-30 ? Electronically authenticated by: [id number] ??Y ?? Date: 05/02/2025 ??11:25 ? Dictated By: ?Malena Salcido M.D. ? Signed By: ?12/26/25 1128 ? DD/ 1125 ? TD/TT: ? Hospice Clinical Supervisor: Procedure Note Radiology, Radiologist, MD - 05/02/2025 [place] [address] Ultrasound Report Signed Patient: ESE BADILLO NMR#: [id number] : 1990Acct:[id number] Age/Sex: 34 / FADM Date: 05/02/25 Loc: [facility] 250-[address]: Mamadou Hayden D.O. Ordering Physician: Mamadou Hayden D.O. Date of Service: 05/02/25 Procedure(s): OB BPP w non-stress Accession Number(s): [id number] cc: Mamadou Hayden D.O.; Rebecca Rizvi NP The [place] [id number] Patient Name: ESE BADILLO MRN: [id number] date: 1990 Sex: F Assigned Patient Location: [facility] Current Patient Location: [facility] Accession/Order Number: [id number] Exam Date: 05/02/2025 10:35 Report Date: 05/02/2025 [...] Salcido M.D. 05/02/2025 11:25 AM Dictation Location: [employer] Electronically authenticated by: [id number] Y Date: :25 Dictated By: Malena Salcido M.D. Signed By:05/02/25 1128 DD/ 1125 TD/TT: Hospice Clinical Supervisor: Authorizing ProviderResult TypeResult StatusCorey Jackelyn DOCLINISYNC IMAGINGFinal Result documented in this encounter Visit Diagnoses Not on filedocumented in this encounter Care Teams Team MemberRelationshipSpecialtyStart DateEnd Date Rebecca Rizvi MD [address] [place] [phone] PCP - GeneralFamily Medicine01/03/25documented as of this encounter
[2025-05-07 12:00] VITALS: BP 127/59; PULSE 106
== END 2025-05-07 12:44 | disposition home or self-care (01) ==
LOC: FBCO 11:50 → FBC 11:54
PROVIDERS: PCP Nurse Practitioner Family; Visit Provider Obstetrics & Gynecology
DX: O35.8XX0 Maternal care for other (suspected) fetal abnormality and damage, not applicable or unspecified (principal); Z3A.00 Weeks of gestation of pregnancy not specified
CPT/HCPCS: 59025